=== PATIENT | male | born 1945 | race Caucasian/White ===

== ENCOUNTER → 2017-04-16 13:16 | Outpatient (CLI) | payer OTHER, SELFPAY ==
--- NOTE | 2017-04-16 13:19 | ECHOCS_ITS ---
Reason For Study: Abnormal Echo Procedure This was a 2D Doppler, Color Flow transthoracic echocardiogram. Exam performed in department. Left Ventricle Mild eccentric left ventricular hypertrophy. Moderately dilated left ventricle. The estimated ejection fraction is 35 %. Moderately severe segmental systolic dysfunction (see wall motion). Mid- anteroseptal : Akinetic. Septal [place] : Akinetic. Mid-Anterior : Akinetic. There is moderate global hypokinesis of the left ventricle. Right Ventricle Normal RV size. Normal systolic function. Atria Normal left atrium. Normal right atrium. Mitral Valve Normal mitral valve. Tricuspid Valve Normal tricuspid valve. Aortic Valve Trisinus/trileaflet aortic valve. Pulmonic Valve The pulmonic valve is not well visualized. Great Vessels Normal aortic root. Pericardium/Pleural No pericardial effusion. Medication 22 gauge I.V. with prn adaptor inserted into right arm. Diluted definity 3ml given slow IV push to enhance endocardial definition. MMode/2D Measurements & Calculations LVIDd: 6.5 cm IVSd: 1.0 cm LVOT diam: 2.0 cm LVIDs: 5.6 cm LVPWd: 0.86 cm LVOT area: 3.3 cm2 RVDd: 3.7 cm FS: 13.9 % Ao root diam: 3.6 cm LAV(MOD-bp): 52.7 ml LA A4 area: 17.6 cm2 LA dimension: 4.3 cm LAV(MOD-bp) Indexed: 23.7 ml/m2 LAV(MOD-sp2): 54.2 ml LAV(MOD-sp4): 48.6 ml RA A4 area: 13.9 cm2 Time Measurements MV dec time: 0.38 sec Doppler Measurements & Calculations MV E max jed: 43.6 cm/sec Lat Peak E' Jed: 6.6 cm/sec Med Peak E' Jed: 8.3 cm/sec MV A max jed: 91.9 cm/sec E/E' lat: 6.6 E/E' med: 5.3 MV E/A: 0.47 MV V2 max: 90.6 cm/sec MV P1/2t max jed: 44.8 cm/sec Ao V2 max: 105.3 cm/sec MV max P.3 mmHg MV P1/2t: 165.7 msec Ao max P.4 mmHg MV V2 mean: 38.4 cm/sec MV dec slope: 79.1 cm/sec2 Ao V2 mean: 74.1 cm/sec MV mean P.74 mmHg MVA(P1/2t): 1.3 cm2 Ao mean P.4 mmHg MV V2 VTI: 27.2 cm Ao V2 VTI: 23.9 cm MVA(VTI): 2.2 cm2 BETZAIDA(I,D): 2.5 cm2 BETZAIDA(V,D): 2.5 cm2 LV V1 max: 81.6 cm/sec SV(LVOT): 59.0 ml PA V2 max: 169.5 cm/sec LV V1 max P.7 mmHg LV V1 mean P.2 mmHg LV V1 mean: 48.8 cm/sec LV V1 VTI: 18.0 cm Interpretation Summary Mild eccentric left ventricular hypertrophy. Moderately dilated left ventricle. The estimated ejection fraction is 35 %. Moderately severe segmental systolic dysfunction (see wall motion). Ordering Physician: Miguel Correa Referring Physician: Miguel Correa Performed By: Job Meier RCS
== END ==
PROVIDERS: Family Provider Internal Medicine; PCP Internal Medicine; Visit Provider Internal Medicine Cardiovascular Disease
DX: I25.10 Atherosclerotic heart disease of native coronary artery without angina pectoris (principal)
CPT/HCPCS: 93306; Q9957; A4216; C8929

== ENCOUNTER → 2017-12-21 10:44 | Outpatient (CLI) | payer OTHER, SELFPAY ==
--- NOTE | 2017-12-21 10:48 | MRI_ITS ---
STUDY: MRI BRAIN WITH AND WITHOUT CONTRAST (ATTENTION INTERNAL AUDITORY CANALS - I.A.C.'s) REASON FOR EXAM: Male, 71 years old. DIZZINESS, UNSTEADY GAIT X 6 MONS. TECHNIQUE: Standardized multiplanar fat and water weighted pulse sequences were obtained. 10 ml of Gadavist contrast material was administered intravenously for the contrast portion of the examination. COMPARISON: None. FINDINGS: Normal bilateral temporal bones. Normal bilateral internal auditory canals. There is no demonstrated intracanalicular or cisternal vestibular schwannoma (acoustic neuroma). There is no enhancement of the bilateral VIIth or VIIIth cranial nerves. Normal bilateral cochlea, vestibules and semicircular canals. There is moderate atrophy with widening of the extra-axial spaces. There is ventricular enlargement. There is thinning with bowing of the corpus callosum. There is crowding of the parietal sulci near the vertex. There is moderate enlargement of the third ventricle. 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 Normal white matter tracts of the supratentorial brain. Normal bilateral basal ganglia. Normal thalami. Normal flow voids within the major intracranial circulation suggesting patency by spin echo criteria. Normal venous enhancement. There is no enhancing intra-axial or extra-axial abnormality. There is no extra-axial fluid accumulation. Normal sella turcica, pituitary gland, infundibular stalk, optic chiasm and hypothalamus. Normal tectal plate and pineal gland. Normal midbrain, emi and medulla. Normal cerebellum. Normal basal cisterns. MRI/Brain W/WO Contrast IMPRESSION: There is no demonstrated intracanalicular or cisternal vestibular schwannoma (acoustic neuroma). Suggestion of NPH in the appropriate clinical setting. Electronically Signed: Bry Back MD at 13:35 EDT Tel , Service support ,
[2017-12-21 11:26] LABS: CREATININE FINGERSTICK 0.8 mg/dL (0.70-1.30); EGFR FINGERSTICK > 60.0000 mL/min (>60)
== END ==
PROVIDERS: Family Provider Internal Medicine; PCP Internal Medicine; Referring Provider Otolaryngology; Visit Provider Otolaryngology
DX: R42 Dizziness and giddiness (principal)
CPT/HCPCS: 70553; A9585

== ENCOUNTER 2018-04-20 10:00 | Outpatient (RCR) | payer OTHER, SELFPAY ==
--- NOTE | 2018-04-12 10:48 | HP.PTEVAL_ITS ---
Patient's Visit Information OSMAN JONES is a 72 year old M referred to Physical Therapy by Sukhdeep Garcia MD with a diagnosis of Balance issures, dizzyness.. Date of Evaluation: 04/12/18 Physical Therapist: Dre Olsen, DPT, OCS, CSCS - Visit Plan Frequency: 2x /Week Duration: 4-6 Weeks Plan: Neurocom balance test then consider a couple visits to teach HEP vs 2x/week for 4 weeks. OR hold until after neurosurgeon if no issues on balance te st. - Subjective Findings: For a year I have been dizzy and unsteadiness. Had Catscan and saw ENT and were OK. Brain MRI at hospital and has some ressure in brain. Sent to neuro who sent for PT and will see a neurosurgeon. No spinning. Feels unsteady, balance issue. Sitting and lying are normal. On feet gets unsteady. Couple falls 1/7 walking on uneven surface. Those surfaces tend to be challenging. No numbness. Does not use cane or walker but has a cane. Live with and has steps which he needs rail. Sleep is good in 3-4 hour shifts. Retired form [employer]. Does not do a lot. No regualr ex. - Objective Walks slowly with short steps adn diminished confidence but safe adn I. Sit to stand without UE., Trasnfers are I. Weakness in PF but can heel raise easily, VOR walking is challenging. Oculomotor exam is unremarkable with no nystagmus adn no problem with pursuit or saccades. VOR is slow but no symptoms. - B hallpike marisol. reflexes patella and achilles are 2/3. Sensation WNl to gross light touch in LE. LE AROM and strength WNL at 4+/5. coordination reciprocal toe and heel tap at mod deficits, heel lynn shows minimal deficits. - Balance Scores Functional Gait Assessment Score: 24 % Disability: 20.0000 CATSIB Score (Max score 120 seconds): 92 - Goals Goal 1:: Neurocom balance test adn explain results Goal Time Frame: 2 Weeks Goal 2:: I approp HEP to manage balance issues Goal Time Frame: 4-6 Weeks Goal 3:: FGA to show improved steadiness adn patient feel 50% steadier. Goal Time Frame: 4-6 Weeks - Rehabilitation Potential Physical Therapy Diagnosis: Unsteadiness. Rehabilitation Potential: Fair - Anticipated Interventions Patient/Client Instruction: Educate patient on: Condition, Plan of Care For the Purpose of:: To increase tolerance to activity/condition/position, To improve balance, To improve safety Therapeutic Exercise to Include: Balance training, Gait and locomotor training For the Purpose of:: To increase tolerance to activity/condition/position, To improve balance, To improve safety with gait Thank you for the opportunity to evaluate your patient. For Medicare and Medicare HMO plans, please review the plan of care and approve it. It will need to be FAXED BACK to us at [phone] for Medicare purposes. For Medicare only, by signing this I certify the plan of care. Please let me know if there are questions or concerns regarding this plan of care. Physician Signature: Date:
--- NOTE | 2018-04-16 10:09 | HP.PTCOM_ITS ---
PT Communication Note 04/16/[address] Sukhdeep Garcia MD , [facility] i have enclosed a copy of the results for your review. In summation, he scored low on the vestibular portion of the Sensory Organization Test. he scored well on the Motor Control Test. He scored low on backward weight shifting excursion. With these results in mind, we will see him for 1-3 visits to instruct in HEP for balance related to these deficits. Then he will f/u a month later after his neurosurgeon visit to rerun these tests and check for improvement / progression. If there are questions regarding his PT, please feel free to call me. Thank you Sincerely, Dre Olsen DPT, OCS, CSCS Contact Information
--- NOTE | 2018-06-09 15:23 | HP.PT.NRP ---
HP - Discharge Summary (1) - Patient Information OSMAN JONES was seen in my office for initial evaluation on 04/12/18. The following Plan of Care was established for this patient: Initial Frequency: 2x /Week Initial Duration: 4-6 Weeks - Anticipated Interventions Patient/Client Instruction: Educate patient on: Condition, Plan of Care For the Purpose of:: To increase tolerance to activity/condition/position, To improve balance, To improve safety Therapeutic Exercise to Include: Balance training, Gait and locomotor training For the Purpose of:: To increase tolerance to activity/condition/position, To improve balance, To improve safety with gait This patient was last seen in our office 04/20/18. Pertinent comments regarding their Physical therapy will appear below: Pt seen 3 visits of POC adn was instructed in approp HEP. He was to f.u one month later for balance testing but did not schedule or attend. will discotninue due to nonattendance as it has been nearly two months. At this point I will be discontinuing this patient from physical therapy. I would be happy to see this patient again in the future if found appropriate by the physician. Thank you! Dre Olsen, DPT, OCS, CSCS
== END 2018-04-20 19:00 | disposition home or self-care (01) ==
LOC: PT 10:00
PROVIDERS: Family Provider Internal Medicine; PCP Internal Medicine; Referring Provider Psychiatry & Neurology Neurology; Visit Provider Psychiatry & Neurology Neurology
DX: R26.89 Other abnormalities of gait and mobility (principal); R42 Dizziness and giddiness
CPT/HCPCS: 97110; 97162; 97750

== ENCOUNTER → 2018-08-09 11:58 | Outpatient (CLI) | payer OTHER, SELFPAY ==
--- NOTE | 2018-08-09 12:00 | CDU_ITS ---
Reason For Study: dizziness and giddiness Rt. Velocities/BP Lt. Velocities/BP Prox CCA 132.6/82.2 cm/sec. Prox CCA 140.5/27.2 cm/sec. Mid CCA 82.2/19.5 cm/sec. Mid CCA 113.1/27.2 cm/sec. Dist CCA 73.6/14.6 cm/sec. Dist CCA 107.6/23.6 cm/sec. Prox ICA 72.3/14.6 cm/sec. Prox ICA 72.4/12.0 cm/sec. Mid ICA 68.6/20.8 cm/sec. Mid ICA 86.2/24.1 cm/sec. Dist ICA 59.6/20.3 cm/sec. Dist ICA 104.5/36.9 cm/sec. Rt. ICA/CCA = 72.3/82.2=0.9. Lt. ICA/CCA = 104.5/113.1=0.9. Prox ECA 78.5/10.9 cm/sec. Prox ECA 113.1/7.1 cm/sec. Rt. Vert. 61.6/15.0 cm/sec. Lt. Vert. 51.9/16.7 cm/sec. Right Extracranial There is intimal thickening but no significant atherosclerotic plaque noted in the right common carotid artery. There is heterogeneous, smooth atherosclerotic plaque noted in the right internal carotid artery. There is no significant atherosclerotic plaque noted in the right external carotid artery. Antegrade flow is noted in the right vertebral artery. There is heterogeneous, irregular atherosclerotic plaque noted in the right bulb. Left Extracranial There is intimal thickening but no significant atherosclerotic plaque noted in the left common carotid artery. There is heterogeneous, smooth atherosclerotic plaque noted in the left internal carotid artery. There is no significant atherosclerotic plaque noted in the left external carotid artery. Antegrade flow is noted in the left vertebral artery. There is heterogeneous, irregular atherosclerotic plaque noted in the left bulb. Procedure Carotid Duplex [id number]. Exam performed in department. Interpretation Summary Mild (<50%) stenosis right extracranial internal carotid. Mild (<50%) stenosis left extracranial internal carotid. Flow within the vertebral arteries is antegrade bilaterally. Heterogeneous, irregular atherosclerotic plaque is noted in the carotid bulbs bilaterally, which does not appear to be hemodynamically significant. Ordering Physician: Zafar Jurado Referring Physician: Jordy Saucedo Performed By: Ammy Sosa RDCS, RVT
== END ==
PROVIDERS: Family Provider Internal Medicine; PCP Internal Medicine; Referring Provider Psychiatry & Neurology Neurology; Visit Provider Psychiatry & Neurology Neurology
DX: R42 Dizziness and giddiness (principal)
CPT/HCPCS: 93880

== ENCOUNTER 2018-10-19 10:28 | Emergency (ER) | payer OTHER, SELFPAY ==
[2018-10-19 10:29] VITALS: BP 172/95; PULSE 69; RESP 16; TEMP 36.3; O2SAT 98; BMI 31.1
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
--- NOTE | 2018-10-19 11:50 | ED.DCSUM_ITS ---
- ER Visit Summary Date of Service: 10/19/18 Chief Complaint: Shoulder injury History of Present Illness: The patient is a 72 M who states that he has balance issues and today sustained a fall in which he struck his right shoulder. He states he feels a bone sticking up. He has limited range of motion. He denies any other injuries. He denies any symptoms below the shoulder Physical Examination: Afebrile vital signs are stable Patient is tenderness palpation over the right AC joint. The trapezius muscle appears in spasm. No tenderness over the scapula on the posterior aspect. Humerus is nontender. Neurovascular intact distal Test Results: Shoulder films did not demonstrate an acute fracture. The clavicle does appear higher than the acromion suggestive of a AC separation. Emergency Department Course and Treatment: She will be placed in a sling recommend ice and anti-inflammatories. I have encouraged him to follow-up with orthopedics. Impression: 1. Right AC separation This note was generated with [employer] dictation software. It may contain incorrect words, spelling, and punctuation that were not noted in review of the chart prior to signing ED Disposition - Plan for ED Patient: Disposition: Home or Assisted Living Instructions: Ac Joint Sprain Referrals: Delroy Lopez DO [STAFF PHYSICIAN] - (call to arrange follow up)
[2018-10-19 12:12] VITALS: BP 141/89; PULSE 64; RESP 16; O2SAT 97
== END 2018-10-19 12:13 | disposition home or self-care (01) ==
PROVIDERS: Emergency Provider Emergency Medicine; Family Provider Internal Medicine; PCP Internal Medicine
DX: S43.101A Unspecified dislocation of right acromioclavicular joint, initial encounter (principal); W19.XXXA Unspecified fall, initial encounter; Y93.9 Activity, unspecified; Y92.9 Unspecified place or not applicable; I25.2 Old myocardial infarction; I10 Essential (primary) hypertension; Z87.891 Personal history of nicotine dependence
CPT/HCPCS: 73030; 99283

== ENCOUNTER → 2018-11-15 13:35 | Outpatient (CLI) | payer OTHER, SELFPAY ==
[2018-11-15 07:56] VITALS: BMI 31.1
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
== END ==
PROVIDERS: Family Provider Internal Medicine; PCP Internal Medicine; Referring Provider Orthopaedic Surgery; Visit Provider Orthopaedic Surgery
DX: M19.011 Primary osteoarthritis, right shoulder (principal); S43.101A Unspecified dislocation of right acromioclavicular joint, initial encounter; X58.XXXA Exposure to other specified factors, initial encounter; Y93.9 Activity, unspecified; Y92.9 Unspecified place or not applicable; Y99.9 Unspecified external cause status
CPT/HCPCS: 73030

== ENCOUNTER → 2019-03-18 07:34 | Outpatient (CLI) | payer OTHER, SELFPAY ==
[2019-02-24 16:09] VITALS: BMI 31.7
--- NOTE | 2019-03-18 07:35 | ECHOCS_ITS ---
Reason For Study: S/P CABG Procedure This was a 2D Doppler, Color Flow transthoracic echocardiogram. The study was technically difficult. Contrast injection was performed. Exam performed in department. Left Ventricle Normal LV size. Moderate segmental systolic dysfunction (see wall motion). The estimated ejection fraction is 35 %. No evidence for diastolic dysfunction. Anterio-Basal: Hypokinetic. Posterior- Basal: Hypokinetic. Infero-Basal: Hypokinetic. Basal inferoseptal: Hypokinetic. Basal anteroseptal: Hypokinetic. Mid-Anterior : Hypokinetic. Mid-Posterior: Hypokinetic. Mid-Inferior: Hypokinetic. Mid- inferoseptal : Akinetic. Mid-anteroseptal : Akinetic. Anterior [place] : Hypokinetic. Inferior [place] : Hypokinetic. Lateral [place] : Hypokinetic. Septal [place] : Akinetic. Right Ventricle Normal RV size. Normal systolic function. Atria Normal left atrium. Normal right atrium. No doppler evidence for ASD. Mitral Valve There is mild mitral annular calcification. Extension of the mitral annular calcification onto the base of the posterior mitral valve leaflet. Trivial mitral valve insufficiency. Tricuspid Valve Normal tricuspid valve. Trivial tricuspid valve insufficiency. Unable to estimate RV systolic pressure/pulmonary artery pressure due to technically difficult study. Aortic Valve Trisinus/trileaflet aortic valve. Normal aortic valve. Pulmonic Valve The pulmonic valve is not well visualized. Great Vessels Mildly dilated aortic root. Pericardium/Pleural No pericardial effusion. Medication 22 gauge I.V. with prn adaptor inserted into left arm. Diluted definity 4.0ml given slow IV push to enhance endocardial definition. MMode/2D Measurements & Calculations LVIDd: 5.4 cm IVSd: 0.72 cm Ao root diam: 4.0 cm LVIDs: 4.5 cm LVPWd: 0.70 cm FS: 17.1 % LAV(MOD-bp): 52.4 ml LVAd ap4: 49.1 cm2 SV(MOD-sp4): 60.3 ml LAV(MOD-bp) Indexed: 23.2 ml/m2 EDV(MOD-sp4): 208.1 ml LAV(MOD-sp2): 43.9 ml EDV(sp4-el): 216.4 ml LAV(MOD-sp4): 52.0 ml LVAs ap4: 39.8 cm2 ESV(MOD-sp4): 147.8 ml ESV(sp4-el): 151.8 ml EF(MOD-sp4): 29.0 % EF(sp4-el): 29.8 % SV(sp4-el): 64.6 ml LA A4 area: 19.9 cm2 LA dimension(2D): 4.1 cm RA A4 area: 16.6 cm2 Time Measurements MV dec time: 0.29 sec Doppler Measurements & Calculations MV E max jed: 50.3 cm/sec Lat Peak E' Jed: 7.7 cm/sec Med Peak E' Jed: 4.6 cm/sec MV A max jed: 85.8 cm/sec E/E' lat: 6.5 E/E' med: 10.8 MV E/A: 0.59 Ao V2 max: 99.4 cm/sec LV V1 max: 83.6 cm/sec PA V2 max: 173.2 cm/sec Ao max P.0 mmHg LV V1 max P.8 mmHg Interpretation Summary The study was technically difficult. Contrast injection was performed. Moderate segmental systolic dysfunction (see wall motion). The estimated ejection fraction is 35 %. There is mild mitral annular calcification. Extension of the mitral annular calcification onto the base of the posterior mitral valve leaflet. Trivial mitral valve insufficiency. Trivial tricuspid valve insufficiency. Mildly dilated aortic root. Unable to estimate RV systolic pressure/pulmonary artery pressure due to technically difficult study. No evidence for diastolic dysfunction. 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 Ordering Physician: Chacorta Escobar Referring Physician: Jordy Saucedo M.D. Performed By: Ita Arteaga, CHAVEZ, RVT
== END ==
PROVIDERS: Family Provider Internal Medicine; PCP Internal Medicine; Referring Provider Internal Medicine Cardiovascular Disease; Visit Provider Internal Medicine Cardiovascular Disease
DX: I25.10 Atherosclerotic heart disease of native coronary artery without angina pectoris (principal); I51.3 Intracardiac thrombosis, not elsewhere classified; Z95.1 Presence of aortocoronary bypass graft
CPT/HCPCS: 93306; Q9957; A4216; C8929

== ENCOUNTER → 2019-03-28 15:50 | Outpatient (CLI) | payer OTHER, SELFPAY ==
[2019-03-28 14:09] VITALS: BMI 32.0
[2019-03-28 16:01] LABS: Bacteria 0 SEEN /hpf (None Seen); Mucous, Urine 0 SEEN /hpf (<or=2+); White Blood Cells 0 SEEN /hpf (0-5)
[2019-03-28 17:02] LABS: Color, Urine Yellow (Yellow); Glucose, Dipstick Normal (Normal); Ketone-Dipstick Negative (Negative); Leukocyte Esterase-Dipstick Negative /ul (Negative); Nitrite-Dipstick Negative (Negative); Occult Blood-Urine 50 /ul (Negative); Protein-Dipstick 15 mg/dl (Negative); Urine Bilirubin Dipstick Negative (Negative); Urine Clarity Sl. Cloudy (Clear); Urine Urobilinogen Normal (Normal)
[2019-03-28 17:09] LABS: Hematocrit 52.8 % (40-54); Mean Corp Hgb Conc 32.2 g/dL (32-36); Mean Corpuscular Hgb 29.2 pg (27.0-32.0); Mean Corpuscular Volume 90.6 fL (80-94); Mean Platelet Vol. 12.1 fl (6.2-12.0); Platelet Count 189 K/mm3 (150-450); RBC Distribution Width CV 13.1 % (11.6-14.6); RBC Distribution Width SD 43.5 fl (35.1-43.9); Red Blood Count 5.83 M/mm3 (4.6-6.2); White Blood Count 9.9 K/mm3 (4.4-11.0)
[2019-03-28 17:13] LABS: International Normalized Ratio 2.5; Prothrombin Time (Protime)PT. 26.8 SECONDS (11.7-14.9)
[2019-03-28 17:17] LABS: Red Blood Cells-Urine 5-10 SEEN /hpf (0-5); Squamous Epithelial Cells - UA 0-5 SEEN /hpf (0-5)
[2019-03-28 17:35] LABS: Anion Gap 5 (5-15); BUN 11 mg/dL (7-18); BUN/Creat Ratio 10.8 RATIO (10-20); Calcium,Total 9.1 mg/dL (8.5-10.1); Chloride 108 mmol/L (98-107); Creatinine, Serum 1.02 mg/dL (0.70-1.30); EST Glomerular Filtration Rate 76 mL/min (>60); Est Glom Filt Rate - Afr Amer 92 mL/min (>60); Glucose 84 mg/dL (74-106); Potassium 3.7 mmol/L (3.5-5.1); Sodium Level 140 mmol/L (136-145)
== END ==
PROVIDERS: PCP Internal Medicine; Referring Provider Internal Medicine Cardiovascular Disease; Visit Provider Internal Medicine Cardiovascular Disease
DX: I25.5 Ischemic cardiomyopathy (principal); Q24.5 Malformation of coronary vessels; I25.10 Atherosclerotic heart disease of native coronary artery without angina pectoris; I51.3 Intracardiac thrombosis, not elsewhere classified
CPT/HCPCS: 36415; 80048; 81001; 85027; 85610

== ENCOUNTER → 2019-04-05 10:44 | Outpatient (CLI) | payer OTHER, SELFPAY ==
[2019-03-28 14:09] VITALS: BMI 32.0
[2019-04-05 11:42] LABS: Anion Gap 2 (5-15); BUN 12 mg/dL (7-18); BUN/Creat Ratio 11.2 RATIO (10-20); Chloride 107 mmol/L (98-107); Creatinine, Serum 1.07 mg/dL (0.70-1.30); EST Glomerular Filtration Rate 72 mL/min (>60); Est Glom Filt Rate - Afr Amer 87 mL/min (>60); Glucose 106 mg/dL (74-106); Sodium Level 139 mmol/L (136-145)
== END ==
LOC: LAB 10:47
PROVIDERS: PCP Internal Medicine; Referring Provider Internal Medicine Cardiovascular Disease; Visit Provider Internal Medicine Cardiovascular Disease
DX: I10 Essential (primary) hypertension (principal); I25.5 Ischemic cardiomyopathy; I25.10 Atherosclerotic heart disease of native coronary artery without angina pectoris; E78.00 Pure hypercholesterolemia, unspecified; Z95.1 Presence of aortocoronary bypass graft
CPT/HCPCS: 36415; 80048

== ENCOUNTER 2019-04-14 10:42 | Day surgery (SDC) | payer OTHER, SELFPAY ==
[2019-03-28 14:09] VITALS: BMI 32.0
[2019-04-13 12:58] VITALS: BMI 32.0
[2019-04-14] VITALS (9 sets, daily range): BP systolic 128–145; BP diastolic 65–73; PULSE 60–77; RESP 16; TEMP 36.2–36.6; O2SAT 96–99
[2019-04-14 11:05] LABS: Prothrombin Time Fingerstick 28.5 SEC (11.9-14.4)
--- NOTE | 2019-04-14 11:25 | PCM.HP.BLA ---
History and Physical Date of Admission: 04/14/19 This is a 73-year-old white male who presents today an ICD placement. He does have a hx of CAD, previous AL, previous PCI, previous CABG (WALDEN to the LAD and SVG to the OM), ischemic mediated cardiomyopathy, left ventricular apical thrombus, superimposed upon hyperlipidemia, hypertension, diabetes mellitus, and possible normal pressure hydrocephalus. At the present time he states he is not having ongoing chest discomfort. There has been no episodes of worsening shortness of breath or dyspnea or orthopnea or PND. He has noted the development of lower extremity/ankle edema. This is more so on the right than the left. There is been no near syncope or syncope. He states he has a chronic balance issue. He has been evaluated by neurology for this. Thus the MRI which was noted in the previous [facility] cardiology visit from 03-26-18 with the statement of possible normal pressure hydrocephalus. The patient states that he is not aware of any continued follow-up with neurology at this time. It appears that he is undergone multiple evaluations at [facility] in [place], [place]. In 1995 he underwent diagnostic cardiac catheterization that apparently led to PTCA/stent to the LAD system. The LAD was reported as occluded. It appears he had diagnostic cardiac catheterization performed on 09-16-2013. At that time according to report the left ventricle had an LVEF of 35 to 40% with hypokinesis of the anterolateral and apical harding, the LAD mid vessel had concerns of an area of myocardial bridging at the time. The LCx was reported as normal, the RCA was reported as normal, and the mitral valve had no MR. It appears he underwent repeat diagnostic cardiac catheterization on 10-20-16. At that time the left ventricle was reported as having an LVEF of 35 to 40%, the LAD had a proximal 70% stenosis and 80% stenosis and the LCx had a 50% stenosis. The RCA was reported as normal. It appears he subsequently, in November 2016, underwent CABG with a WALDEN to the LAD and an SVG to the OM at [facility] in [place], [place]. Since that time he has had noninvasive evaluation. He had a transthoracic echocardiogram was on 04-16-17. At that time the left ventricle was thought to be moderately dilated with left ventricular systolic dysfunction with an estimated LVEF of 35% with moderate concentric LVH. It appears he has had carotid artery evaluation as well in August 2018 through the [facility] system. At that time he had what was reported as mild disease bilaterally. His last stress test available for review appears to been in August 2013 which was a myocardial perfusion study considered abnormal with an area of fixed defect in the LAD and RCA territories with the left ventricle being dilated with an LVEF of 34%. His most recent transthoracic echocardiogram is as noted below. Overall it appears he remains with a diminished LV systolic function/LVEF and findings not compatible with a left ventricular apical thrombus. Intake VS see chart Allergies No Known Allergies Allergy (Verified 03/28/19 14:09) Medications aspirin 81 mg tablet,delayed release 81 mg PO DAILY 10/25/18 [History Confirmed 03/28/19] atorvastatin 80 mg tablet 80 mg PO QHS #30 tab 02/22/19 [History Confirmed 03/28/19] metoprolol tartrate 25 mg tablet 12.5 mg PO BID #60 tab 02/22/19 [History Confirmed 03/28/19] warfarin 5 mg tablet 5 mg PO DAILY #30 tab 02/22/19 [History Confirmed 03/28/19] amlodipine 2.5 mg tablet 2.5 mg PO DAILY #30 tab 02/24/19 [Rx Confirmed 03/28/19] nitroglycerin 0.4 mg sublingual tablet 0.4 mg SUBLINGUAL Q5-15M PRN #25 tab 02/24/19 [Rx Confirmed 03/28/19] losartan 100 mg tablet 50 mg PO BID tab 03/28/19 [History Confirmed 03/28/19] spironolactone 25 mg tablet 25 mg PO DAILY #30 tab 03/28/19 [Rx Confirmed 03/28/19] [facility] Medical History Ischemic cardiomyopathy (Chronic) Bilateral carotid artery stenosis (Chronic) History of myocardial infarction (Acute) 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) Pure hypercholesterolemia (Chronic) Atherosclerotic heart disease of [place] coronary artery without angina pectoris (Chronic) Essential hypertension (Chronic) Surgical History History of coronary artery bypass surgery (Chronic ~10/31/16) History of appendectomy (Resolved) History of shoulder surgery (Resolved) History of tonsillectomy (Resolved) Family History Father AAA (abdominal aortic aneurysm, ruptured), Onset Age: 89 Mother Myocardial infarction Sudden cardiac , Onset Age: 80 Brother Hypertension Social History (Updated 03/28/19 @ 15:55 by Chacorta Escobar MD) Smoking Status: Former smoker alcohol intake: never substance use type: does not use caffeine: Yes Type: coffee Number of servings: 1 ROS Const Const: Negative for fatigue, weakness, frequent falls, excessive sweating, weight gain or weight loss Eyes Eyes: Negative for transient loss of vision, blurry vision or change in vision ENT ENT: Positive for dizziness (continues) and balance problems Cardio Chest Pain: No Palpitations: No Edema: Bilateral (ankles,pedals) Muscle aches with walking: None Resp Respiratory: Negative for SOB with activity or SOB at rest GI GI: Negative vomiting or vomiting blood/hematemesis : Negative for hematuria Musc Musc: Positive for balance problems; negative for muscle aches/ myalgia, muscle weakness or joint pain Skin Skin: Negative non-healing lesions or rash Neuro Neuro: Positive for dizziness (continues); negative for lightheadedness, orthostatic symptoms, frequent falls, weakness or blurry vision Patrick Hematologic/Lymphatic: Negative for easy bleeding Endo Endo: Negative for fatigue or excessive sweating Psych Psych: Negative for anxiety or depression Allergy Allergy/Immunology: Negative for hives, Negative for rash Cardiology Exam Const Appearance: cooperative, healthy appearing, comfortable, no acute distress, well developed and well groomed Nutritional Appearance: average body habitus Orientation: alert, awake and oriented x3 Head Head: normal to inspection, normocephalic and atraumatic Ears: hearing grossly normal bilaterally Nose: external nose normal Face and Sinus: face symmetric Mouth: oral mucosae normal Teeth and gingiva: fair dentition Eyes Eyelids: eyelids normal Conjunctivae: conjunctivae normal Pupils: PERRL EOM: EOM intact bilaterally Neck Neck: normal visual inspection and full ROM Carotids: normal carotid upstroke Chest Chest inspection: normal inspection of the chest, symmetric chest movement and normal respiratory effort Auscultation: Bilateral: Clear to Auscultation Cardio Palpation: normal PMI Rate: regular rate Rhythm: regular rhythm Heart sounds: S1 normal, S2 normal and positive S4 GI GI: normal to inspection, soft and bowel sounds present Neuro General: alert, awake, oriented x3 and moves all extremities Skin Skin: no rashes or lesions noted Extremities Pulses: Normal: Right Radial Pulse, Left Radial Pulse Lower Extremity Edema: +1: Left, +2: Right Psych Psychological: normal affect Assessment & Plan 1. Atherosclerosis of [place] coronary artery of [place] heart without angina pectoris I25.10 Plan At the present time he will continue risk factor evaluation and care as deemed appropriate. It was not felt he required repeat exercise tolerance test/imaging study or diagnostic cardiac catheterization at this time. 2. History of coronary artery bypass graft Z95.1 CABG x2- WALDEN to LAD, SVG to OM 10/31/2016 @ [place] Plan Again he will continue medical management and follow-up. 3. Cardiomyopathy, ischemic I25.5 Plan He will have an ICD placed today. The patient does have an underlying ischemic mediated cardiomyopathy. His most recent transthoracic echocardiogram demonstrates that his overall LV systolic function and LVEF remains low at approximately 35% which appears to be similar to his previous studies. A SDM interaction occurred at this visit using an SDM tool prior to initial implant of ICD. Pt will follow up accordingly in the office. 4. Pure hypercholesterolemia E78.00 Plan He will continue risk factor evaluation and care as deemed appropriate. 5. Essential hypertension I10 Plan These were recently adjusted. He will follow up accordingly in the office.
--- NOTE | 2019-04-14 12:52 | OP.PCM_ITS ---
Report of Operation Date of Procedure: 04/14/19 Description of Surgical Findings:: Preoperative diagnosis implantation of primary prevention VVI ICD for ischemic CM; EF 35% NYHA Class II symptoms Postoperative diagnosis same as above After informed consent and IV antibiotics the patient was brought to the [facility] catheterization laboratory. The left side of the chest was prepped and draped in the usual sterile manner. The patient was sedated with intermittent boluses of IV Versed fentanyl and propofol as well as subcutaneous 1% lidocaine. An incision was made inferior to the clavicle to accommodate the size of the hardware device. The pocket was created using blunt and Bovie dissection. Hemostasis was obtained. Using the Seldinger technique the axillary vein was cannulated once and a guidewire was advanced under fluoroscopic guidance. Over the guidewire a sheath was advanced. Through this sheath, the electrode was positioned under fluoroscopic guidance into the right ventricle and was actively fixated. Once actively fixated, the lead was tested to check for proper sensing, capture threshold, impedance and to exclude diaphragmatic stimulation. Once the lead was implanted and all electrical parameters were confirmed to be functioning normally with appropriate values, the leads was then sutured to the pectoralis muscle with 2-0 silk on the Silastic collar ?2. The sponge and needle count were correct. Hemostasis was obtained. Antibiotic solution was used to flush the pocket. The new device was brought to the field. The lead was placed in the appropriate position of the header of the device and were secured by the setscrews and confirmed by the tug test. The device and the kalani ds were then placed in the pocket. Pocket was closed with a deep layer of running 2-0 Vicryl, superficial layer of running 4-0 Vicryl and skin with Steri- Strips that were covered with a rolled 4 x 4's and Tegaderm. The patient left the lab with the device programmed to chronic parameters. There were no complications. Tghe device is a VVI ICD [place] [employer] device Lead and device serial and model numbers are available in the chart documents provided by the device company [email or web address] sales representative procedure summary.
--- NOTE | 2019-04-14 17:10 | RAD_ITS ---
STUDY: X-RAY CHEST REASON FOR EXAM: Male, 73 years old. Post pacemaker TECHNIQUE: Single AP portable view of the chest. COMPARISON: None. FINDINGS: The lungs are clear and expanded. There is no demonstrated pleural abnormality. Normal size heart. There has been median sternotomy. Single pacer lead terminates in the right ventricle. Normal mediastinum and nilsa. Normal visualized pulmonary arteries. Normal visualized aortic arch and descending thoracic aorta. Normal visualized thoracic spine. Normal visualized ribs, clavicles, and shoulders. There is no demonstrated abnormality of the visualized soft tissue structures of the upper abdomen. RAD/Chest 1 View (Portable) IMPRESSION: No definite acute or significant abnormality seen. Electronically Signed: Fabian Phillips MD at 17:51 EST , Service support ,
[2019-04-14] MEDS: Acetaminophen 325 MG Tablet PO (17:25)
[2019-04-14] MEDS: Losartan Potassium 50 MG Tablet PO (21:29)
[2019-04-14] MEDS: Metoprolol Tartrate 25 MG Tablet 12.5 MG PO (21:29)
[2019-04-14] MEDS: Atorvastatin Calcium 80 MG Tablet PO (21:30)
[2019-04-15 02:30] VITALS: BP 131/74; PULSE 69; RESP 16; TEMP 36.6; O2SAT 96
[2019-04-15 02:59] VITALS: PULSE 67
[2019-04-15] MEDS: Acetaminophen 325 MG Tablet PO (03:08)
[2019-04-15 05:54] LABS: Hematocrit 46.2 % (40-54); Hemoglobin 15.5 g/dL (13.0-16.5)
--- NOTE | 2019-04-15 05:55 | RAD_ITS ---
STUDY: X-RAY CHEST REASON FOR EXAM: Male, 73 years old. Chest pain, recent pacemaker insertion TECHNIQUE: PA and lateral views of the chest. COMPARISON: Yesterday FINDINGS: Stable appearance of a left subclavian pacemaker The lungs are clear and expanded. There is no demonstrated pleural abnormality. Sternal cerclage wires and vascular clips are present from a prior sternotomy and coronary artery bypass graft procedure (CABG). Normal mediastinum and nilsa. Normal visualized pulmonary arteries. Normal visualized aortic arch and descending thoracic aorta. Normal visualized thoracic spine. Normal visualized ribs, clavicles, and shoulders. There is no demonstrated abnormality of the visualized soft tissue structures of the upper abdomen. RAD/Chest PA and Lateral IMPRESSION: No acute pulmonary process or significant interval change Electronically Signed: Dickson Liang MD at 8:31 EST , Service support ,
[2019-04-15 06:12] LABS: Anion Gap 2 (5-15); BUN 15 mg/dL (7-18); Calcium,Total 8.5 mg/dL (8.5-10.1); Chloride 109 mmol/L (98-107); Creatinine, Serum 0.94 mg/dL (0.70-1.30); EST Glomerular Filtration Rate 84 mL/min (>60); Est Glom Filt Rate - Afr Amer 102 mL/min (>60); Estimated Creatinine Clearance 76.82 ml/min; Glucose 106 mg/dL (74-106); Potassium 3.9 mmol/L (3.5-5.1); Sodium Level 138 mmol/L (136-145)
--- NOTE | 2019-04-15 07:28 | DCINST_ITS ---
Discharge Diet: No Restrictions Discharge Activity: May Not Drive Call your doctor if your incision/area has: Continuous Slow Oozing, Sudden Increased Bleeding, Increased Pain/ Swelling, Increased Redness, Foul Smelling Discharge, Swelling at the incision site Call your doctor if you observe: Fever of 101 or Higher, Shortness of breath, Dizziness, Fainting spells, Swelling in the ankles, Chest pain, Prolonged hiccoughing, Increased palpitations (irregular heartbeat) Suture Line Care: Avoid Pulling/Pushing, Avoid Pinching/Bending Cleanse incision/area with: Do not get Incision Wet, Keep Dressing Clean & Dry Additional Dressing/Incision Instructions:: When dressing is removed, wash and dry incision. Keep covered with a light bandage if it is rubbing against your clothing. Do not cover the incision with an airtight bandage. Change the bandage daily. Do not remove steri strips. The strips will fall off on their own. Additional Instructions: Signs and Symptoms to Report to Your Doctor at Once - call your doctor's office or Doctor's Registry ([phone]) Call 911 or go to the nearest Emergency Department if you feel you need urgent care. *Infection (fever, increased redness or swelling at the incision site, drainage from the incision increased pain at the pacemaker site) *Shortness of breath *Dizziness *Fainting spells *Swelling in the ankles *Chest pain *Prolonged hiccoughing *Increased palpitaitons (irregular heartbeat) Medications: Take your pain medication as directed. Refer to your discharge instruction sheet for a list of medications you are to take. Allergies/Adverse Reactions: Allergies No Known Allergies Allergy (Verified 03/28/19 14:09) Medications to take at Discharge aspirin 81 mg tablet,delayed release 81 mg PO DAILY 10/25/18 atorvastatin 80 mg tablet 80 mg PO QHS #30 tab 02/22/19 metoprolol tartrate 25 mg tablet 12.5 mg PO BID #60 tab 02/22/19 warfarin 5 mg tablet 5 mg PO DAILY #30 tab 02/22/19 amlodipine 2.5 mg tablet 2.5 mg PO DAILY #30 tab 02/24/19 nitroglycerin 0.4 mg sublingual tablet 0.4 mg SUBLINGUAL Q5-15M PRN #25 tab 02/24/19 losartan 100 mg tablet 50 mg PO BID tab 03/28/19 spironolactone 25 mg tablet 25 mg PO DAILY #30 tab 03/28/19 Primary Care Physician: Jordy Saucedo MD [Primary Care Provider] - Test Results: Test results from this visit will be discussed in further detail at your follow- up appointment, if applicable. When: PACER CLINIC PER DATE Proposed Discharge Date: 04/15/19
[2019-04-15 07:59] VITALS: PULSE 69
--- NOTE | 2019-04-15 08:32 | DS.PCM_ITS ---
Discharge Date and Diagnosis Date of Admission: 04/14/19 Date of Discharge: 04/15/19 - Primary Discharge Diagnosis Status post single lead ICD - Secondary Discharge Diagnosis Chronic Problems (Last Reviewed 03/28/19 @ 14:10 by Aby Carey) Ischemic cardiomyopathy (Chronic) Bilateral carotid artery stenosis (Chronic) Pure hypercholesterolemia (Chronic) History of coronary artery bypass surgery (Chronic ~10/31/16) CABG x2- WALDEN to LAD, SVG to OM 10/31/2016 @ [place] Atherosclerotic heart disease of [place] coronary artery without angina pectoris (Chronic) Essential hypertension (Chronic) Hospital Course and Treatment Imaging Results: 04/15/19 05:55 Chest PA and Lateral [RAD] AM (NON MEDS) Procedures: - - ICD placement Summary of Care Provided: The patient is a 73 year old white male with a past cardiovascular history which is included underlying CAD, ischemic mediated cardiomyopathy with diminished LV systolic function/LVEF, PCI, CABG, left ventricular thrombus, superimposed upon a history of hyperlipidemia and hypertension who presented for placement of a single-lead ICD. His procedure was performed on 04-14-2019 under the direction of Dr. Mcpherson of [facility] electrophysiology. The patient recuperated in the hospital overnight. He appeared to be symptomatically and hemodynamically stable. He underwent post procedure follow-up with laboratory studies, chest x-ray, and ICD interrogation. On this day it was felt the patient was stable for release home for continued outpatient cardiovascular follow-up. [] Subjective: The patient is awake and alert and in no acute distress. - Physical Exam Vitals/I&O's: Vital Signs Temp Pulse Resp BP Pulse Ox 97.9 F 69 16 131/74 H 96 04/15/19 02:30 04/15/19 07:59 04/15/19 02:30 04/15/19 02:30 04/15/19 02:30 Oxygen Delivery Method Room Air Weight: 236 lb Body Mass Index (BMI) 32.0 Intake and Output for Last 24 Hours 04/13/19 04/14/19 04/15/19 23:59 23:59 23:59 Intake Total 500 / 500 240 / 240 Output Total 400 / 400 400 / 400 Balance 100 / 100 -160 / -160 General: Alert, Oriented x3, Cooperative, No apparent distress HEENT: Atraumatic, PERRLA, EOMI, Normocephalic Oral: Moist Mucosa Neck: Supple, No JVD Lungs: Clear to auscultation Cardiovascular: Regular Rhythm, Normal S1, Normal S2 Abdomen: Bowel Sounds Present, Soft, Non Tender Extremities: No edema Psych/Mental Status: Normal Affect Comment: Left pectoral region: Surgical bandage in place: Clean and dry Laboratory Results 04/14/19 10:57: POC PT 28.5 H, INR 2.40 04/15/19 05:30: Hgb 15.5, Hct 46.2 04/15/19 05:30: Sodium 138, Potassium 3.9, Chloride 109 H, Carbon Dioxide 27.0, Anion Gap 2 L, BUN 15, Creatinine 0.94, Estim Creat Clear Calc 76.82, Est GFR (MDRD) Af Amer 102, Est GFR (MDRD) Non-Af 84, BUN/Creatinine Ratio 16.0, Glucose 106, Calcium 8.5 Current Medications Acetaminophen (Tylenol) 325 - 650 mg PO Q6H PRN PRN PRN Reason: Pain Score 1-3/10, T> 101F Last Admin: 04/15/19 03:08 Dose: 650 mg Documented by: Hydrocodone Bitart/Acetaminophen ([place]run[place] 5mg-325mg) 1 - 2 tablet PO Q6H PRN PRN PRN Reason: Pain Score 4-10/10 Amlodipine Besylate (Norvasc) 2.5 mg PO DAILY REPLACED BY [facility] Aspirin (Ecotrin) 81 mg PO DAILY@0800 REPLACED BY [facility] Atorvastatin Calcium (Lipitor) 80 mg PO QHS REPLACED BY [facility] Last Admin: 04/14/19 21:30 Dose: 80 mg Documented by: Losartan Potassium (Cozaar) 50 mg PO BID REPLACED BY [facility] Last Admin: 04/14/19 21:29 Dose: 50 mg Documented by: Metoprolol Tartrate (Lopressor (Beta Elise)) 12.5 mg PO BID REPLACED BY [facility] Last Admin: 04/14/19 21:29 Dose: 12.5 mg Documented by: Nitroglycerin (Nitrostat) 0.4 mg SUBLINGUAL Q5M PRN PRN Reason: CARDIAC/CHEST PAIN Ondansetron HCl (Zofran) 4 mg IV Q8H PRN PRN PRN Reason: NAUSEA Spironolactone (Aldactone) 25 mg PO DAILY REPLACED BY [facility] Warfarin Sodium (Coumadin (Pbkc)) 5 mg PO DAILY@1700 REPLACED BY [facility] Last Admin: 04/14/19 19:02 Dose: 5 mg Documented by: Zolpidem Tartrate (Ambien (Generic)) 5 mg PO QHS PRN PRN Reason: SLEEP Discharge Diet: No Restrictions Discharge Activity: May Not Drive Call your doctor if your incision/area has: Continuous Slow Oozing, Sudden Increased Bleeding, Increased Pain/ Swelling, Increased Redness, Foul Smelling Discharge, Swelling at the incision site Call your doctor if you observe: Fever of 101 or Higher, Shortness of breath, Dizziness, Fainting spells, Swelling in the ankles, Chest pain, Prolonged hiccoughing, Increased palpitations (irregular heartbeat) Suture Line Care: Avoid Pulling/Pushing, Avoid Pinching/Bending Cleanse incision/area with: Do not get Incision Wet, Keep Dressing Clean & Dry Additional Dressing/Incision Instructions:: When dressing is removed, wash and dry incision. Keep covered with a light bandage if it is rubbing against your clothing. Do not cover the incision with an airtight bandage. Change the bandage daily. Do not remove steri strips. The strips will fall off on their own. Home Medications: Medications to take at Discharge aspirin 81 mg tablet,delayed release 81 mg PO DAILY 10/25/18 atorvastatin 80 mg tablet 80 mg PO QHS #30 tab 02/22/19 metoprolol tartrate 25 mg tablet 12.5 mg PO BID #60 tab 02/22/19 warfarin 5 mg tablet 5 mg PO DAILY #30 tab 02/22/19 amlodipine 2.5 mg tablet 2.5 mg PO DAILY #30 tab 02/24/19 nitroglycerin 0.4 mg sublingual tablet 0.4 mg SUBLINGUAL Q5-15M PRN #25 tab 02/24/19 losartan 100 mg tablet 50 mg PO BID tab 03/28/19 spironolactone 25 mg tablet 25 mg PO DAILY #30 tab 03/28/19 Primary Care Physician: Jordy Saucedo MD [Primary Care Provider] - When: PACER CLINIC PER DATE Additional Instructions: Signs and Symptoms to Report to Your Doctor at Once - call your doctor's office or Doctor's Registry ([phone]) Call 911 or go to the nearest Emergency Department if you feel you need urgent care. *Infection (fever, increased redness or swelling at the incision site, drainage from the incision increased pain at the pacemaker site) *Shortness of breath *Dizziness *Fainting spells *Swelling in the ankles *Chest pain *Prolonged hiccoughing *Increased palpitaitons (irregular heartbeat) Medications: Take your pain medication as directed. Refer to your discharge instruction sheet for a list of medications you are to take. Disposition: Home Minutes spent on discharge:: 45 Patient Condition:: Stable Medical Necessity - Tobacco Use Smoking Status: Former smoker Meaningful Use Info Meaningful Use Diagnoses (Choose all that apply): None applicable
[2019-04-15 08:48] VITALS: PULSE 74
[2019-04-15] MEDS: Metoprolol Tartrate 25 MG Tablet 12.5 MG PO (08:48)
[2019-04-15] MEDS: amLODIPine 2.5 MG Tablet PO (08:48)
[2019-04-15] MEDS: Spironolactone 25 MG Tablet PO (08:48)
[2019-04-15] MEDS: Losartan Potassium 50 MG Tablet PO (08:48)
[2019-04-15] MEDS: Aspirin E.C. 81 MG Tablet PO (08:49)
== END 2019-04-15 07:29 | disposition home or self-care (01) ==
LOC: CLSP 10:46 → PCU 04-15 10:43
PROVIDERS: PCP Internal Medicine; Referring Provider Internal Medicine Cardiovascular Disease; Visit Provider Internal Medicine Cardiovascular Disease
DX: I25.5 Ischemic cardiomyopathy (principal); I25.10 Atherosclerotic heart disease of native coronary artery without angina pectoris; E11.9 Type 2 diabetes mellitus without complications; I10 Essential (primary) hypertension; E78.5 Hyperlipidemia, unspecified; Z79.82 Long term (current) use of aspirin; Z79.01 Long term (current) use of anticoagulants; Z79.899 Other long term (current) drug therapy; I25.2 Old myocardial infarction; Z95.5 Presence of coronary angioplasty implant and graft; Z95.1 Presence of aortocoronary bypass graft; I65.23 Occlusion and stenosis of bilateral carotid arteries; Z87.891 Personal history of nicotine dependence
CPT/HCPCS: 33249; 36415; 36416; 71045; 71046; 80048; 85014; 85018; 85610; 93641; 99152; 99153; J7040; J7050; C1894

== ENCOUNTER 2019-07-04 12:35 | Emergency (ER) | payer OTHER, SELFPAY ==
[2019-04-13 12:58] VITALS: BMI 32.0
[2019-07-04 12:36] VITALS: BP 128/84; PULSE 87; RESP 18; TEMP 36.7; O2SAT 98; BMI 31.1
--- NOTE | 2019-07-04 13:11 | CT_ITS ---
STUDY: CT BRAIN WITHOUT CONTRAST REASON FOR EXAM: Male, 73 years old. FALL, HEAD INJURY, LAC ABOVE LEFT EYE -- ON COUMADIN RADIATION DOSAGE (If Supplied By Facility): CTDIvol = ( 44.99 ) mGy, DLP = ( 796.11 ) mGycm TECHNIQUE: Transaxial CT imaging of the brain was performed without administration of intravenous contrast material. Individualized dose optimization techniques were used for this CT. COMPARISON: No relevant priors. FINDINGS: Soft tissue swelling overlying the left orbit. Normal calvarium. There is mild cerebral atrophy with widening of the extra-axial spaces and ventricular dilatation. Normal white matter tracts of the cerebral hemispheres. Normal basal ganglia and thalami. Normal brainstem. Normal cerebellum. There is no intracranial hemorrhage. There are no findings of an acute ischemic infarction. Atherosclerotic calcification of the cavernous portions of the internal carotid arteries bilaterally. Normal visualized paranasal sinuses. CT/Brain/Head without Contrast IMPRESSION: Chronic involutional changes of the brain. Soft tissue swelling overlying the left orbit. Electronically Signed: Garcia Newman, at 13:58 EDT , Service support ,
--- NOTE | 2019-07-04 14:14 | ED.DCSUM_ITS ---
- ER Visit Summary Date of Service: 07/04/19 Chief Complaint: Fall History of Present Illness: The patient is a 73 M who presents with a fall that occurred today. Patient states he was walking to his spine when he lost his balance and fell. Patient hit his left eyebrow area. Patient denies any loss of consciousness. Patient admits to a laceration to his left eyebrow area. Patient denies any visual changes. Patient denies any nausea or vomiting. Patient denies any numbness or weakness. Patient denies any difficulty ambulating after the fall. Currently, patient denies any pain. Patient states his last tetanus was within 5 years. Physical Examination: Vital signs are stable. Patient is afebrile. Patient is in no acute distress. Skin is warm dry. There is a 3 cm full-thickness linear laceration over the left eyebrow. There is no bony crepitance, step-off, or deformity. Pupils are equal, round, and reactive to light bilaterally. Extraocular muscles are intact. Neck is supple. Trachea is midline. There is no JVD. Heart was regular rate and rhythm. Lungs are clear and equal bilateral. Abdomen is soft and nontender. Cranial nerves II through XII are intact. There are no focal motor or sensory deficits. Test Results: CT scan of the brain was obtained. There is no acute intracranial abnormality. This was interpreted by the radiologist and reviewed by myself. Emergency Department Course and Treatment: The wound was cleaned and irrigated with copious amounts of normal saline. The wound was anesthetized with 1% plain lidocaine locally. The wound was closed with 5 simple interrupted #5-0 nylon sutures under sterile technique. Patient tolerated the procedure well. Bacitracin dressing was applied. Patient was instructed to keep the wound clean and dry. Patient was instructed to follow-up with his primary care physician or return to the emergency department for wound recheck and suture removal in 5 days. Patient understood and was agreeable with the plan. All questions were answered. Disposition: Discharge home Impression: 1. Left eyebrow laceration 2. Closed head injury This note was generated with [employer] software. It may contain incorrect words, spelling, and punctuation that were not noted in review of the chart prior to signing ED Disposition - Plan for ED Patient: Disposition: Home or Assisted Living Diagnosis: Laceration of left eyebrow, Closed head injury Instructions: ED Laceration Facial Sutr Tape Referrals: Jordy Saucedo MD [Primary Care Provider] - 5 Days for suture removal
[2019-07-04 16:14] VITALS: BP 124/62; PULSE 84; RESP 18; O2SAT 98
== END 2019-07-04 16:16 | disposition home or self-care (01) ==
PROVIDERS: Emergency Provider Emergency Medicine; PCP Internal Medicine
DX: S01.112A Laceration without foreign body of left eyelid and periocular area, initial encounter (principal); W01.10XA Fall on same level from slipping, tripping and stumbling with subsequent striking against unspecified object, initial encounter; Y93.01 Activity, walking, marching and hiking; Y99.9 Unspecified external cause status; Z79.01 Long term (current) use of anticoagulants; Z79.82 Long term (current) use of aspirin; Z79.899 Other long term (current) drug therapy; I25.2 Old myocardial infarction; Z95.810 Presence of automatic (implantable) cardiac defibrillator; Z95.1 Presence of aortocoronary bypass graft
CPT/HCPCS: 12013; 70450; 99284

== ENCOUNTER 2020-01-18 07:56 | Day surgery (SDC) | payer OTHER, SELFPAY ==
[2019-12-21 08:35] VITALS: BMI 31.1
[2020-01-18] VITALS (7 sets, daily range): BP systolic 95–130; BP diastolic 62–81; PULSE 57–70; RESP 16–18; TEMP 36.2–36.3; O2SAT 93–97; BMI 30.8
--- NOTE | 2020-01-18 | COLBX_PTH ---
PATIENT: OSMAN JONES LOC: EN U#:[id number] AGE/SX: 74/M ROOM: RE01/18/[address]: Dr. Ishaan Walsh MD : 1945 BED: DIS: 01/18/2020 SPEC #: [id number] RECD: 01/18/20 12:30 STATUS: MIKE REFaraz #: [id number] CRISS: 01/18/20 00:[address]: Ishaan Walsh DEPT: SURGICAL PATHOLOGY RECD BY: Fuentes Mosquera ENTERED: 01/18/20 12:30 SP TYPE: COLON BX OTHR DR: Dr. Jordy Saucedo MD Tissues: Sigmoid colon biopsy Procedures: Surgery Specimen Level IV HEADER OPERATION: Colonoscopy (MAC) PRE-OP DIAGNOSIS: Screening TISSUE SUBMITTED: Sigmoid polyp biopsy MICROSCOPIC DIAGNOSIS Sigmoid polyp, biopsy: Hyperplastic polyp. SJ:chata 01/19/20 MICROSCOPIC DESCRIPTION Slides are reviewed. GROSS DESCRIPTION Received in fixative is one container labeled with the patient's name and designated sigmoid polyp biopsy. The specimen consists of two irregular fragments of light mulligan soft tissue that in aggregate measure 0.5 x 0.2 x 0.1 cm. The specimen is totally submitted in one cassette. / SJ:chata 01/18/20 TC:1 CPT: 79520
--- NOTE | 2020-01-18 08:10 | HP_ITS ---
Intake Vital Signs 12/21/19 Height 6 ft 12/21/19 Weight: 230 lb 12/21/19 BMI 31.1 12/21/19 BP 133/84 H 12/21/19 Blood Pressure Location Rt brachial 12/21/19 Position Sitting 12/21/19 Respiration 16 12/21/19 Pulse 72 12/21/19 Pulse Source Monitor 12/21/19 Temp 97.4 F L 12/21/19 Temp Source Temporal 12/21/19 Pulse Oximetry (%) 95 12/21/19 Oxygen Delivery Method room air Intake Visit Reasons: [employer] Journal[employer] Required: No Is patient in pain?: No Allergies No Known Allergies Allergy (Verified 12/21/19 08:36) Medications aspirin 81 mg tablet,delayed release 81 mg PO DAILY 10/25/18 [History Confirmed 12/21/19] atorvastatin 80 mg tablet 80 mg PO QHS #30 tab 02/22/19 [History Confirmed 12/21/19] metoprolol tartrate 25 mg tablet 12.5 mg PO BID #60 tab 02/22/19 [History Confirmed 12/21/19] warfarin 5 mg tablet 5 mg PO DAILY #30 tab 02/22/19 [History Confirmed 12/21/19] nitroglycerin 0.4 mg sublingual tablet 0.4 mg SUBLINGUAL Q5-15M PRN #25 tab 02/24/19 [Rx Confirmed 12/21/19] spironolactone 25 mg tablet 25 mg PO DAILY #30 tab 03/28/19 [Rx Confirmed 12/21/19] amlodipine 2.5 mg tablet 2.5 mg PO DAILY #30 tab 10/14/19 [Rx Confirmed 12/21/19] losartan 50 mg tablet 50 mg PO DAILY tab 12/21/19 [History Confirmed 12/21/19] warfarin 2.5 mg tablet 2.5 mg PO Q OTHER DAY 12/21/19 [History Confirmed 12/21/19] [facility] Medical History Fatigue (Acute) Ischemic cardiomyopathy (Chronic) Bilateral carotid artery stenosis (Chronic) History of myocardial infarction (Acute) 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) Pure hypercholesterolemia (Chronic) Atherosclerotic heart disease of [place] coronary artery without angina pectoris (Chronic) Essential hypertension (Chronic) Surgical History Hx of colonoscopy (Acute) Hx of angioplasty (Acute) History of tonsillectomy (Resolved) History of appendectomy (Resolved) History of shoulder surgery (Resolved) Presence of implantable cardioverter-defibrillator (ICD) (Chronic ~04/14/19) History of coronary artery bypass surgery (Chronic ~10/31/16) Family History Father AAA (abdominal aortic aneurysm, ruptured), Onset Age: 89 Mother Myocardial infarction Sudden cardiac , Onset Age: 80 Brother Hypertension Social History (Updated 12/21/19 @ 09:[address] Ishaan Walsh MD) Smoking Status: Former smoker alcohol intake: never substance use type: does not use caffeine: Yes Type: coffee Number of servings: 1 what type of physical activity do you participate in: none frequency: does not exercise HPI HPI Surgical H&P: Yes HPI: OSMAN JONES, is a 73 M who presents to the office today for Evaluation for colonoscopy. Patient had his last colonoscopy by Dr. Davis in 2008. This was normal. He has not been having 80 changes in his bowel habits his weight is been stable. He has a history of coronary artery disease with a bypass surgery with a WALDEN to the LAD, SVG to the OM, ischemic cardiomyopathy with recent ICD placement, left ventricular apical thrombosis, hypertension, hyperlipidemia, and diabetes. ROS General General: Yes weight change and fatigue; no appetite, colon cancer, breast cancer or weakness HEENT HEENT: No difficulty swallowing, eye injury, eye surgery, swollen glands or hoarseness Endo Endocrine: No thyroid disease, diabetes mellitus, thyroid cancer, Hair loss, heat intolerance or cold intolerance Skin Skin: No rash or changing moles Breast Breast: No left breast lump, right breast lump, nipple discharge, breast pain, abnormal mammogram, abnormal US or breast enlargement Musc Musculoskeletal: No back problems, arthritis, rheumatoid arthritis, gout or joint pain Cardio Cardiovascular: Yes pacemaker, heart disease, atrial fibrillation, high blood pressure, heart attack and heart stent; no murmur, palpitations, shortness of breat with exertion or chest pain Psych Psychiatric: No depression, anxiety or hearing voices Resp Respiratory: No shortness of breath, No sleep apnea, No cough, No COPD, No asthma, No emphysema, No wheezing Gastro Gastrointestinal: No abdominal pain, No nausea or vomiting, No diarrhea, No constipation, No blood in stool, No acid reflux, No hemorrhoids, No ulcers, No gallbladder problem, No black,tarry stools Patrick Hematologic: Yes blood thinners, No blood disorders, No bleeding, No anemia, No blood clots Neuro Neurologic: No weakness Exam Const General: no acute distress, well developed, well hydrated Orientation: oriented to person, oriented to place, oriented to time [facility] Head: normocephalic, atraumatic Ears: external ears normal Mouth: moist mucous membranes Eyes Sclera: sclerae normal Pupils: normal by confrontation Neck Neck: no lymphadenopathy noted Neck mass: No Thyroid: thyroid normal, symmetrical Chest Chest palpation & inspection: normal inspection of the chest Breast Palpation: No nipple discharge Resp Effort & Inspection: normal respiratory effort Auscultation: clear to auscultation bilaterally Percussion: percussion normal Cardio Rate: regular rate Rhythm: regular rhythm Heart Sounds: no murmurs GI Palpation: soft, no hepatosplenomegaly, no masses, nontender Rectal Exam: other Other: Rectal exam deferred. Extrem General: normal to inspection, no clubbing, cyanosis or edema Assessment & Plan Problems 1. Encounter for screening colonoscopy Z12.11 Plan I have discussed the above with the patient. I have offered the patient colonoscopy for evaluation. I have explained the risks/benefits of the procedure and described the procedure. I have discussed the risks with the patient, including but not limited to: infection, bleeding, perforation of the GI tract requiring emergency surgery, inability to complete the procedure, injury to any internal organs, complications of anesthesia, etc. - the patient understands and agrees to proceed. I have answered all the patient's questions to the patient's satisfaction and the patient has no further questions. The patient has been given instructions for the colon cleansing preparation. We will have the patient off his Coumadin 5 days prior to the procedure. If a polyp was removed and I will place a metal clip at the biopsy site. Coding Level of Care Code Off vis,new,level 3 Diagnoses Encounter for screening colonoscopy Z12.11 COVID (Procedure Consent) Procedure Criteria Procedure Criteria: Yes Elective The surgeon/proceduralist and patient have discussed in detail the risk of exposure to and/or potential harm posed by the COVID-19 virus with having a surgery/procedure at this time versus the risk of? delaying the surgery/procedure. It is not possible to know either the risk of delaying the surgery or procedure or chance of getting an infection with perfect accuracy, but a joint decision was made between the patient and the surgeon/proceduralist ?to proceed at this time with the scheduled surgery/procedure as indicated on the consent form. I have re-examined the patient. There are no clinical changes since date of exam.
[2020-01-18 08:25] LABS: Prothrombin Time Fingerstick 13.3 SEC (11.9-14.4)
[2020-01-18] MEDS: Lactated Ringers 1,000 ML 100 ML IV (08:34)
--- NOTE | 2020-01-18 09:23 | OP.CCLET_ITS ---
01/18/2020 Jordy Saucedo [id number] [place] [address] Re : Colonoscopy procedure for Ollie Cunningham Dear Dr. Saucedo This procedure was performed on Saturday, January 18, 2020. My impressions and recommendations are as follows: Impressions : - The examined portion of the ileum was normal. - One 5 mm polyp in the sigmoid colon, removed with a jumbo cold forceps. Resected and retrieved. - Diverticulosis in the sigmoid colon and in the descending colon. No specimens collected. - Non-bleeding internal hemorrhoids. - The examination was otherwise normal. Recommendations : - Discharge patient to home. - Resume previous diet. - Continue present medications. - Await pathology results. - Repeat colonoscopy in 5 years for surveillance. - Telephone my office for pathology results in 1 week. My findings are described in the full procedure note, which is enclosed. If I can be of further assistance, please feel free to contact me at Doctor phone number(s): , Fax: [phone], Work: . Sincerely, MD Ishaan Coles MD 01/18/2020 9:22:46 AM This report has been signed electronically.
--- NOTE | 2020-01-18 09:23 | OP.COLON_ITS ---
Patient Name: Ollie Cunningham Procedure Date: 01/18/2020 8:53 AM Date of : 1945 Age: 74 Procedure: Colonoscopy Indications: Screening for colorectal malignant neoplasm Providers: Ishaan Walsh MD Referring MD: Jordy Saucedo Medicines: See the Anesthesia note for documentation of the administered medications Patient Profile: This is a 74 year old male. Refer to note in patient chart for documentation of history and physical. Last Colonoscopy: 2008. Complications: No immediate complications. Procedure: Pre-Anesthesia Assessment: - Prior to the procedure, a History and Physical was performed, and patient medications and allergies were reviewed. The patient's tolerance of previous anesthesia was also reviewed. The risks and benefits of the procedure and the sedation options and risks were discussed with the patient. All questions were answered, and informed consent was obtained. Prior Anticoagulants: The patient has taken no previous anticoagulant or antiplatelet agents. ASA Grade Assessment: III - A patient with severe systemic disease. After reviewing the risks and benefits, the patient was deemed in satisfactory condition to undergo the procedure. After I obtained informed consent, the scope was passed under direct vision. Throughout the procedure, the patient's blood pressure, pulse, and oxygen saturations were monitored continuously. The adult colonoscope was introduced through the anus and advanced to 5 cm into the ileum. The colonoscopy was performed without difficulty. The patient tolerated the procedure well. The quality of the bowel preparation was good. Scope In: 9:02:41 AM Scope Withdrawal Time 0 hours 9 minutes 44 seconds Scope Out: 9:17:34 AM Total Procedure Duration Time 0 hours 14 minutes 53 seconds Findings: The terminal ileum appeared normal. A 5 mm polyp was found in the sigmoid colon. The polyp was sessile. The polyp was removed with a jumbo cold forceps. Resection and retrieval were complete. Multiple small-mouthed diverticula were found in the sigmoid colon and descending colon. No biopsies or other specimens were collected for this exam. Non-bleeding internal hemorrhoids were found during retroflexion. The hemorrhoids were mild and small. The exam was otherwise without abnormality. Impression: - The examined portion of the ileum was normal. - One 5 mm polyp in the sigmoid colon, removed with a jumbo cold forceps. Resected and retrieved. - Diverticulosis in the sigmoid colon and in the descending colon. No specimens collected. - Non-bleeding internal hemorrhoids. - The examination was otherwise normal. Recommendation: - Discharge patient to home. - Resume previous diet. - Continue present medications. - Await pathology results. - Repeat colonoscopy in 5 years for surveillance. - Telephone my office for pathology results in 1 week. Procedure Code(s): --- Professional --- 77170, Colonoscopy, flexible; with biopsy, single or multiple Diagnosis Code(s): --- Professional --- Z12.11, Encounter for screening for malignant neoplasm of colon K64.8, Other hemorrhoids D12.5, Benign neoplasm of sigmoid colon K57.30, Diverticulosis of large intestine without perforation or abscess without bleeding CPT copyright 2017 [employer]. All rights reserved. The codes documented in this report are preliminary and upon charcoal burner beehive [employer]n review may be revised to meet current compliance requirements. MD Ishaan Coles MD 01/18/2020 9:22:46 AM This report has been signed electronically. Number of Addenda: 0 Note Initiated On: 01/18/2020 8:53 AM
== END 2020-01-18 10:09 | disposition home or self-care (01) ==
LOC: EN 07:57 → AC 07:57
PROVIDERS: PCP Internal Medicine; Referring Provider Internal Medicine; Visit Provider Surgery
PROC: 0DJD8ZZ Inspection of Lower Intestinal Tract, Via Natural or Artificial Opening Endoscopic (ICD-10-PCS; CPT 45378; principal; 2020-01-18 09:10)
DX: Z12.11 Encounter for screening for malignant neoplasm of colon (principal); D12.5 Benign neoplasm of sigmoid colon; K57.30 Diverticulosis of large intestine without perforation or abscess without bleeding; K64.8 Other hemorrhoids; I25.10 Atherosclerotic heart disease of native coronary artery without angina pectoris; I25.5 Ischemic cardiomyopathy; E11.9 Type 2 diabetes mellitus without complications; I10 Essential (primary) hypertension; E78.5 Hyperlipidemia, unspecified; Z79.82 Long term (current) use of aspirin; Z79.01 Long term (current) use of anticoagulants; Z79.899 Other long term (current) drug therapy; I25.2 Old myocardial infarction; Z87.891 Personal history of nicotine dependence; Z95.1 Presence of aortocoronary bypass graft; Z95.810 Presence of automatic (implantable) cardiac defibrillator
CPT/HCPCS: 45380; 36416; 85610; 87426; 88305; C9803; J7120; J1610

== ENCOUNTER 2020-05-15 08:11 | Outpatient (RCR) | payer OTHER, MEDICARE, SELFPAY ==
[2020-01-18 08:25] VITALS: BMI 30.8
[2020-05-15] MEDS: COVID-19 VACC, MRNA(PFIZER)/PF 30 MCG/0.3 ML SYRINGE IM (10:31)
[2020-06-05] MEDS: COVID-19 VACC, MRNA(PFIZER)/PF 30 MCG/0.3 ML SYRINGE IM (09:51)
== END 2020-08-14 23:59 ==
LOC: IMMUN 08:11
PROVIDERS: PCP Internal Medicine; Referring Provider Family Medicine; Visit Provider Family Medicine
DX: Z23 Encounter for immunization (principal)
CPT/HCPCS: 0001A; 0002A; 91300

== ENCOUNTER 2020-07-29 12:13 | Emergency (ER) | payer OTHER, SELFPAY ==
[2020-01-18 08:25] VITALS: BMI 30.8
[2020-07-29 12:14] VITALS: BP 152/93; PULSE 72; RESP 18; TEMP 36.6; O2SAT 98; BMI 31.1
[2020-07-29 12:41] VITALS: PULSE 62; RESP 12
--- NOTE | 2020-07-29 12:51 | CT_ITS ---
STUDY: CT BRAIN WITHOUT CONTRAST REASON FOR EXAM: Male, 74 years old. head trauma on coumadin RADIATION DOSAGE (If Supplied By Facility): CTDIvol = ( 44.99 ) mGy, DLP = ( 866.41 ) mGycm TECHNIQUE: Transaxial CT imaging of the brain was performed without administration of intravenous contrast material. Individualized dose optimization techniques were used for this CT. COMPARISON: 07/04/2019 FINDINGS: Normal soft tissue structures. Normal calvarium. There is mild cerebral atrophy with widening of the extra-axial spaces and ventricular dilatation. Normal white matter tracts of the cerebral hemispheres. Normal basal ganglia and thalami. Normal brainstem. Normal cerebellum. There is no intracranial hemorrhage. There are no findings of an acute ischemic infarction. Normal visualized paranasal sinuses. CT/Brain/Head without Contrast IMPRESSION: Chronic involutional changes of the brain. Electronically Signed: Dmitri Comer MD at 14:08 EDT Tel , Service support ,
--- NOTE | 2020-07-29 12:58 | EDS_ITS ---
HPI History of Present Illness Chief Complaint: Dizziness Informant: patient and spouse/S.O. Onset/Context/Timing Onset: Today Current Severity: Mild Maximum Severity: Mild Narrative Narrative: 74-year-old male history of dizziness. Today was in the bathroom he got dizzy started to fall and hit his right cheek on the corner of the cabinet causing a laceration. He is on Coumadin.. He denies other injuries. Says he is feeling better now. States it is not uncommon for him to have dizzy spells. Prior similar symptoms: Yes Recent Illness/Hospitalization: No PFSH PFS Medical History Atherosclerotic heart disease of [place] coronary artery without angina pectoris Bilateral carotid artery stenosis Coronary-myocardial bridge Essential hypertension Fatigue History of myocardial infarction Ischemic cardiomyopathy Left ventricular apical thrombus Pure hypercholesterolemia Home Medications aspirin 81 mg tablet,delayed release 81 mg PO DAILY 10/25/18 [History Last Taken Unknown] atorvastatin 80 mg tablet 80 mg PO QHS #30 tab 02/22/19 [History Last Taken Unknown] metoprolol tartrate 25 mg tablet 12.5 mg PO BID #60 tab 02/22/19 [History Last Taken 01/18/20 07:15] warfarin 5 mg tablet 5 mg PO SUTH #30 tab 02/22/19 [History Last Taken Unknown] nitroglycerin 0.4 mg sublingual tablet 0.4 mg SUBLINGUAL Q5-15M PRN #25 tab 02/24/19 [Rx Last Taken Unknown] spironolactone 25 mg tablet 25 mg PO DAILY #30 tab 03/28/19 [Rx Last Taken Unknown] losartan 50 mg tablet 50 mg PO DAILY tab 12/21/19 [History Last Taken 01/18/20 07:15] warfarin 2.5 mg tablet 2.5 mg PO MOTUWEFRSA 12/21/19 [History Last Taken Unknown] amlodipine 2.5 mg PO 1200 01/13/20 [History Last Taken Unknown] Allergy/AdvReac Type Severity Reaction Status Date / Time No Known Allergies Allergy Verified 07/29/20 12:16 Family History Father AAA (abdominal aortic aneurysm, ruptured), Onset Age: 89 Mother Myocardial infarction Sudden cardiac , Onset Age: 80 Brother Hypertension Surgical History History of appendectomy History of coronary artery bypass surgery (~10/31/16) History of shoulder surgery History of tonsillectomy Hx of angioplasty Hx of colonoscopy Presence of implantable cardioverter-defibrillator (ICD) (~04/14/19) Social History Smoking Status: Former smoker alcohol intake: never substance use type: does not use caffeine: Yes Type: coffee Number of servings: 1 what type of physical activity do you participate in: none frequency: does not exercise ROS ROS ED ROS Narrative Patient denies any recent illness. He denies palpitations, chest pain. Review of Systems ROS Unobtainable: Denies due to encephalopathy Constitutional Constitutional ED: Denies fever(s) Eyes Eyes: Denies change in vision ENT ENT ED: Denies ear pain or sore throat Cardiovascular Cardiovascular: Denies chest pain or palpitations Respiratory/Chest Respiratory/Chest: Denies dyspnea Gastrointestinal Gastrointestinal: Denies abdominal pain, diarrhea, nausea or vomiting Genitourinary Genitourinary ED: Denies dysuria or hematuria Musculoskeletal Musculoskeletal: Denies myalgias Integumentary Denies rash Neurologic Neurologic: Reports headache(s) Psychiatric Psychiatric: Denies depression Endocrine Endocrinology: Denies polyuria Allergic/Immunologic Allergic/Immunologic ED: Denies urticaria EXAM Physical Exam Narrative Exam Narrative: Older male no acute distress. Vital signs stable he is afebrile. He does not look septic or toxic. H EENT exam is laceration on his right cheek which will need repaired. He has bruising about his right eye. Pupils round reactive light. Scalp nontender. C-spine nontender. Trachea midline. Lungs are clear. Heart regular rhythm. Chest wall nontender is a mild abrasion left chest wall. Is a pacemaker defibrillator underneath the left chest wall. Abdomen soft nontender. Patient moving all extremities. Normal fly raiser lockstitch strength. No deformity. Nontender. Dorsi plantar flexion intact. Back nontender. Neurologically is awake alert with no focal motor deficits. Const Vital Signs: 07/29/20 12:14 07/29/20 12:41 07/29/20 15:28 Temperature 98 F Temperature Source Temporal Pulse Rate 72 62 61 Respiratory Rate 18 12 16 Respiratory Effort Normal Non-Labored Respiratory Pattern Normal Blood Pressure 152/93 H 161/82 H Blood Pressure Mean 112 108 Pulse Ox 98 98 Oxygen Delivery Method Room Air Room Air Positive well nourished and well developed General Appearance ED: well developed HEENT Reports moist mucous membranes HEENT Narrative: Bruising about his right eye. Laceration right cheek. trauma and tenderness Eyes PERRL and EOMs intact bilaterally Neck no lymphadenopathy, supple and no JVD General: Negative for tenderness Chest Wall inspection of chest normal Chest Narrative: Left chest abrasion. Does not need 7. Resp normal respiratory effort and clear to auscultation bilaterally Cardio regular rate, regular rhythm and no murmurs GI normal to inspection, nondistended, normoactive bowel sounds, non-tender, non- distended and no masses Auscultation: normoactive bowel sounds Palpation: soft; Negative for tender Back/Spine no CVA tenderness Extremity normal to inspection General Extremety ED: Negative for edema or tenderness General Extremity: Negative for edema Neuro oriented x3 and CN's II-XII intact bilaterally Sensorium / Orientation: alert Motor Exam: strength 5/5 throughout Psych mental status grossly normal Skin no rashes or lesions noted MDM MDM MDM Narrative Medical decision making narrative: Older male fall with right cheek laceration that will need repaired. Tetanus will be updated. He is on Coumadin CAT scan of his brain to be obtained. CAT scan read of the brain is no acute abnormality. No obvious fracture seen. If this is not improving and following up and get a CT of the orbits. Repeat exam he is currently doing well at 4:25 PM. Radiography Diagnostic Testing: Radiology Impression Brain CT 07/29/20 12:51 IMPRESSION: Chronic involutional changes of the brain. Electronically Signed: Dmitri Comer MD at 14:08 EDT Tel , Service support , Procedures Lacerations Right cheek laceration: Length: 1.97 in Depth: Sub Q Shape: Linear Prep: Sterile Conditions and Shure-Clens Laceration repair: Irrigated and Local Number of Sutures/Gianluca: 5 Suture Information: Ethilon Comment: Cleaned with Shur-Clens washed with saline. Explored. No foreign body. Locally anesthetized with lidocaine. Closed using 5 simple interrupted 5-0 Ethilon sutures. Proper hemostasis wound closure was obtained. Patient tolerated procedure well. Discharge Plan Triage Chief Complaint: Dizziness ED Provider: Sterling Quintanilla Dx/Rx/DC Orders Clinical Impression: Fall, Facial laceration, Anticoagulation adequate Instructions: ED Head Injury (Adult), ED Laceration: All Closures Prescriptions: No Action aspirin [Adult Aspirin Regimen] 81 mg tablet,delayed release (DR/EC) 81 mg PO DAILY RF: 0 warfarin 5 mg tablet 5 mg PO SUTH Qty: 30 RF: 0 atorvastatin 80 mg tablet 80 mg PO QHS Qty: 30 RF: 0 metoprolol tartrate 25 mg tablet 12.5 mg PO BID Qty: 60 RF: 0 nitroglycerin 0.4 mg tablet, sublingual 0.4 mg SUBLINGUAL Q5-15M PRN (Reason: chest pain) Qty: 25 RF: 1 spironolactone [Aldactone] 25 mg tablet 25 mg PO DAILY Qty: 30 RF: 11 losartan 50 mg tablet 50 mg PO DAILY RF: 0 warfarin 2.5 mg tablet 2.5 mg PO MOTUWEFRSA RF: 0 amlodipine 2.5 MG tablet 2.5 mg PO 1200 RF: 0 Primary Care Provider: Jordy Saucedo Referrals: Jordy Saucedo MD [Primary Care Provider] - 7 Days for suture removal Activity Restrictions/Additional Instructions: Ice to your face to decrease pain and swelling. Stitches taken out in 7 to 10 days not before. If you get a severe headache, vomiting or not acting right you need to be reevaluated in the emergency department. They did not see any broken bones on your CAT scan today. If this does not improve over the next several weeks he can always get a CAT scan of the bones of your face. Disposition Disposition: Home, self care
[2020-07-29] MEDS: Diphth,Pertuss(Acell),Tet Vac 0.5 ML Vial IM (13:22)
[2020-07-29] MEDS: Lidocaine/Epi/Tetracaine 50 ML 1 APPLIC TOPICAL (13:23)
[2020-07-29] MEDS: Lidocaine 1% (20 ml mdv) 20 ML Vial 6 ML INFILT (13:23)
[2020-07-29 15:28] VITALS: BP 161/82; PULSE 61; RESP 16; O2SAT 98
[2020-07-29 16:57] VITALS: BP 161/82
[2020-07-29 17:09] LABS: Prothrombin Time (Protime)PT. 22.1 SECONDS (11.7-14.9)
== END 2020-07-29 16:59 | disposition home or self-care (01) ==
PROVIDERS: Emergency Provider Emergency Medicine; PCP Internal Medicine
DX: S01.81XA Laceration without foreign body of other part of head, initial encounter (principal); S05.11XA Contusion of eyeball and orbital tissues, right eye, initial encounter; S20.312A Abrasion of left front wall of thorax, initial encounter; R42 Dizziness and giddiness; Z23 Encounter for immunization; W01.198A Fall on same level from slipping, tripping and stumbling with subsequent striking against other object, initial encounter; Y93.9 Activity, unspecified; Y92.002 Bathroom of unspecified non-institutional (private) residence as the place of occurrence of the external cause; Y99.9 Unspecified external cause status; I25.10 Atherosclerotic heart disease of native coronary artery without angina pectoris; I25.5 Ischemic cardiomyopathy; I10 Essential (primary) hypertension; E78.00 Pure hypercholesterolemia, unspecified; Z79.82 Long term (current) use of aspirin; Z79.01 Long term (current) use of anticoagulants; Z79.899 Other long term (current) drug therapy; I25.2 Old myocardial infarction; Z87.891 Personal history of nicotine dependence; Z95.810 Presence of automatic (implantable) cardiac defibrillator; Z95.1 Presence of aortocoronary bypass graft
CPT/HCPCS: 12013; 36415; 70450; 85610; 90471; 90715; 99284

== ENCOUNTER 2020-08-06 10:58 | Emergency (ER) | payer OTHER, SELFPAY ==
[2020-08-06 10:59] VITALS: BP 159/95; PULSE 65; RESP 18; TEMP 36.6; O2SAT 98; BMI 31.1
--- NOTE | 2020-08-06 11:23 | EX.ED.DYSGE1 ---
HPI History of Present Illness Chief Complaint: Wound Check Narrative Narrative: 74-year-old male presents for suture removal. States about approximately 1 week ago he fell out of the shower and struck his right face. Had a negative CT at that time. Had 5 sutures placed. No difficulty since that time. [facility] Medical History Atherosclerotic heart disease of [place] coronary artery without angina pectoris Bilateral carotid artery stenosis Coronary-myocardial bridge Essential hypertension Fatigue History of myocardial infarction Ischemic cardiomyopathy Left ventricular apical thrombus Pure hypercholesterolemia Home Medications aspirin 81 mg tablet,delayed release 81 mg PO DAILY 10/25/18 [History Last Taken Unknown] atorvastatin 80 mg tablet 80 mg PO QHS #30 tab 02/22/19 [History Last Taken Unknown] metoprolol tartrate 25 mg tablet 12.5 mg PO BID #60 tab 02/22/19 [History Last Taken 01/18/20 07:15] warfarin 5 mg tablet 5 mg PO SUTH #30 tab 02/22/19 [History Last Taken Unknown] nitroglycerin 0.4 mg sublingual tablet 0.4 mg SUBLINGUAL Q5-15M PRN #25 tab 02/24/19 [Rx Last Taken Unknown] spironolactone 25 mg tablet 25 mg PO DAILY #30 tab 03/28/19 [Rx Last Taken Unknown] losartan 50 mg tablet 50 mg PO DAILY tab 12/21/19 [History Last Taken 01/18/20 07:15] warfarin 2.5 mg tablet 2.5 mg PO MOTUWEFRSA 12/21/19 [History Last Taken Unknown] amlodipine 2.5 mg PO 1200 01/13/20 [History Last Taken Unknown] Allergy/AdvReac Type Severity Reaction Status Date / Time No Known Allergies Allergy Verified 08/06/20 11:00 Family History Father AAA (abdominal aortic aneurysm, ruptured), Onset Age: 89 Mother Myocardial infarction Sudden cardiac , Onset Age: 80 Brother Hypertension Surgical History History of appendectomy History of coronary artery bypass surgery (~10/31/16) History of shoulder surgery History of tonsillectomy Hx of angioplasty Hx of colonoscopy Presence of implantable cardioverter-defibrillator (ICD) (~04/14/19) Social History Smoking Status: Former smoker alcohol intake: never substance use type: does not use caffeine: Yes Type: coffee Number of servings: 1 what type of physical activity do you participate in: none frequency: does not exercise ROS ROS ED Constitutional Constitutional ED: Denies chills or fever(s) Eyes Eyes: Denies blurry vision Integumentary Reports other Details: Bruising to the right face. Neurologic Neurologic: Denies headache(s) EXAM Physical Exam Const Vital Signs: 08/06/20 10:59 Temperature 97.9 F Temperature Source Temporal Pulse Rate 65 Respiratory Rate 18 Blood Pressure 159/95 H Blood Pressure Mean 116 Pulse Ox 98 Oxygen Delivery Method Room Air Positive well nourished and well developed General Appearance ED: well developed HEENT Reports TM's clear and moist mucous membranes HEENT Narrative: Bruising extending from the right maxillary area down under the submandibular and into the right and midline neck. Soft and without hematoma. 5 sutures with a well-healed laceration approximately 2 inches to the right cheek. normocephalic and atraumatic Tympanic Membrane ED: Yes TM's clear Eyes EOMs intact bilaterally Neck no lymphadenopathy, supple and no JVD Neck Narrative: Described ecchymosis. Cardio Peripheral Pulses: pulses 2+ throughout GI soft to palpation Back/Spine no thoracic nor lumbar tenderness Neuro Sensorium / Orientation: alert Psych mental status grossly normal Skin Skin Narrative: Described ecchymosis and well-healed laceration. MDM MDM MDM Narrative Medical decision making narrative: Patient had 5 simple interrupted sutures removed without difficulty. Wound appears well-healed. Will be dressed and asked to follow-up with his primary care physician within the next 2 to 3 days. Asked to return for any new or worsening symptoms. Patient agreeable and discharged home in stable condition. Discharge Plan Triage Chief Complaint: Wound Check ED Provider: Og Molina Dx/Rx/DC Orders Clinical Impression: Visit for suture removal Instructions: ED Stitches/Staple Removal No ..., ED Wound Check (No Infection) Prescriptions: No Action aspirin [Adult Aspirin Regimen] 81 mg tablet,delayed release (DR/EC) 81 mg PO DAILY RF: 0 warfarin 5 mg tablet 5 mg PO SUTH Qty: 30 RF: 0 atorvastatin 80 mg tablet 80 mg PO QHS Qty: 30 RF: 0 metoprolol tartrate 25 mg tablet 12.5 mg PO BID Qty: 60 RF: 0 nitroglycerin 0.4 mg tablet, sublingual 0.4 mg SUBLINGUAL Q5-15M PRN (Reason: chest pain) Qty: 25 RF: 1 spironolactone [Aldactone] 25 mg tablet 25 mg PO DAILY Qty: 30 RF: 11 losartan 50 mg tablet 50 mg PO DAILY RF: 0 warfarin 2.5 mg tablet 2.5 mg PO MOTUWEFRSA RF: 0 amlodipine 2.5 MG tablet 2.5 mg PO 1200 RF: 0 Primary Care Provider: Jordy Saucedo Referrals: Jordy Saucedo MD [Primary Care Provider] - As Needed Disposition Disposition: Home, self care
== END 2020-08-06 11:39 | disposition home or self-care (01) ==
LOC: ED 11:34
PROVIDERS: Emergency Provider Emergency Medicine; PCP Internal Medicine
DX: Z48.02 Encounter for removal of sutures (principal); I25.10 Atherosclerotic heart disease of native coronary artery without angina pectoris; Z87.891 Personal history of nicotine dependence
CPT/HCPCS: 99283

== ENCOUNTER 2021-03-28 11:19 | Outpatient (CLI) | payer OTHER, SELFPAY ==
[2021-03-28 11:32] LABS: International Normalized Ratio 2.4; Prothrombin Time (Protime)PT. 25.1 SECONDS (11.7-14.9)
== END 2021-03-28 23:59 | disposition short-term general hospital (02) ==
LOC: LABSPEC 11:20
PROVIDERS: PCP Internal Medicine; Visit Provider Internal Medicine
DX: Z79.01 Long term (current) use of anticoagulants (principal)
CPT/HCPCS: 85610

== ENCOUNTER 2022-01-21 08:59 | Observation (INO) | payer OTHER, MEDICARE, SELFPAY ==
[2022-01-21] VITALS (7 sets, daily range): BP systolic 113–162; BP diastolic 8–99; PULSE 66–90; RESP 16–18; TEMP 36.4–37.1; O2SAT 95–100; BMI 29.2; BMI 30.8
--- NOTE | 2022-01-21 09:30 | EDS_ITS ---
HPI History of Present Illness Chief Complaint: Weakness Informant: patient, spouse/S.O. and EMS Narrative Narrative: 76-year-old male presenting to the emergency room with chief complaint of weakness and back pain. The patient has been falling for years. He states this become more frequently. He reports extensive testing including MRIs CAT scans and nerve conduction test. He does not know why he falls. He states that when he stands up he just gets weak. He never loses consciousness. He has not had chest pain or palpitations. He has not found himself on the ground sweaty or pale. There is a discrepancy between his story and his story of dizziness. He maintains that he does not get dizzy. He has no sensation that the room is spinning. He states that as he stands up he begins to get lightheaded and then fall down. He reports that he used to be able to get himself up off the ground but now has been having to require help from his and son. He states that he sleeps in a recliner. Today he was unable to get out of the chair. notes that a few days ago he fell causing injury to his left periorbital region. He also notes pain in his mid back. He denies any radicular symptoms. [facility] Medical History Atherosclerotic heart disease of [place] coronary artery without angina pectoris Bilateral carotid artery stenosis Coronary-myocardial bridge Essential hypertension Facial laceration Fall Fatigue History of myocardial infarction Ischemic cardiomyopathy Left ventricular apical thrombus Pure hypercholesterolemia Home Medications aspirin 81 mg tablet,delayed release (Adult Aspirin Regimen) 81 mg PO DAILY 10/25/18 [History Last Taken Unknown] metoprolol tartrate 25 mg tablet 12.5 mg PO BID #60 tabs 02/22/19 [History Last Taken 01/18/20 07:15] nitroglycerin 0.4 mg sublingual tablet 0.4 mg sublingual Q5-15M PRN chest pain #25 tabs 02/24/19 [Rx Last Taken Unknown] spironolactone 25 mg tablet (Aldactone) 25 mg PO DAILY #30 tabs 03/28/19 [Rx Last Taken Unknown] losartan 50 mg tablet 50 mg PO DAILY 12/21/19 [History Last Taken 01/18/20 07:15] amlodipine 2.5 mg tablet 2.5 mg PO 1200 01/13/20 [History Last Taken Unknown] atorvastatin 80 mg tablet 80 mg PO QHS #30 tabs 08/27/21 [History Last Taken Unknown] warfarin 2.5 mg tablet 2.5 mg PO MOTUWEFRSA 08/27/21 [History Last Taken Unknown] warfarin 5 mg tablet 5 mg PO SUTUTH #30 tabs 08/27/21 [History Last Taken Unknown] Allergy/AdvReac Type Severity Reaction Status Date / Time No Known Allergies Allergy Verified 08/27/21 11:34 Family History Father AAA (abdominal aortic aneurysm, ruptured), Onset Age: 89 Mother Myocardial infarction Sudden cardiac , Onset Age: 80 Brother Hypertension Surgical History History of appendectomy History of coronary artery bypass surgery (~10/31/16) History of shoulder surgery History of tonsillectomy Hx of angioplasty Hx of colonoscopy Presence of implantable cardioverter-defibrillator (ICD) (~04/14/19) Social History Smoking Status: Former smoker how long ago did patient quit smokin alcohol intake: never substance use type: does not use caffeine: Yes Type: coffee Number of servings: 1 what type of physical activity do you participate in: none frequency: does not exercise ROS ROS ED Constitutional Constitutional ED: Denies chills, fever(s) or weight loss Eyes Eyes: Denies change in vision or diplopia ENT ENT ED: Denies ear pain, rhinorrhea or sore throat Cardiovascular Cardiovascular: Denies chest pain, orthopnea, palpitations or racing heartbeat Respiratory/Chest Respiratory/Chest: Denies cough, dyspnea or orthopnea Gastrointestinal Gastrointestinal: Denies abdominal pain, diarrhea, nausea or vomiting Genitourinary Genitourinary ED: Denies dysuria, hematuria or urinary frequency Musculoskeletal Musculoskeletal: Denies arthralgias or myalgias Integumentary Reports Abrasions; Denies abscess or rash Neurologic Neurologic: Reports weakness; Denies headache(s) Psychiatric Psychiatric: Denies anxiety, depression, suicidal ideation or suicidal thoughts Endocrine Endocrinology: Denies polydipsia, polyphagia or polyuria Allergic/Immunologic Allergic/Immunologic ED: Denies mouth swelling, tongue swelling or urticaria EXAM Physical Exam Const Vital Signs: 01/21/22 09:00 01/21/22 09:03 01/21/22 10:33 Temperature 97.8 F Temperature Source Temporal Pulse Rate 71 Pulse Rate [Lying] 71 Pulse Rate [Sitting (for 1 minute prior to obtaining)] 77 Pulse Rate [Standing (for 1 minute prior to obtaining)] 90 Respiratory Rate 16 Respiratory Effort Normal Blood Pressure 159/89 H Blood Pressure [Lying] 159/8 H Blood Pressure [Sitting (for 1 minute prior to obtaining)] 113/99 H Blood Pressure [Standing (for 1 minute prior to obtaining)] 162/95 H Blood Pressure Mean 112 Blood Pressure Mean [Lying] 58 Blood Pressure Mean [Sitting (for 1 minute prior to obtaining)] 103 Blood Pressure Mean [Standing (for 1 minute prior to obtaining)] 117 Pulse Ox 95 Oxygen Delivery Method Nasal Cannula Positive well nourished, well developed and obese General Appearance ED: well developed Nutritional Appearance: obese HEENT Reports normocephalic and moist mucous membranes HEENT Narrative: There is a yellow to green periorbital ecchymosis of the left orbit. There is a healing laceration to the left eyebrow. There is no hyphema or subconjunctival hemorrhage. Extraocular motions are intact. Eyes PERRL and EOMs intact bilaterally Neck no lymphadenopathy, supple and no JVD Resp normal respiratory effort and clear to auscultation bilaterally Cardio regular rate, regular rhythm and no murmurs GI normal to inspection, nondistended, normoactive bowel sounds and non-tender Palpation: soft Back/Spine no CVA tenderness Back/Spine Narrative: There are a couple superficial abrasions to the mid thoracic spine. Diffuse tenderness to palpation in the paraspinal musculature of the thoracic spine. Thoracic Spine / Upper Back: thoracic spinal tenderness Extremity normal to inspection General Extremety ED: Negative for edema General Extremity: Negative for edema Neuro oriented x3 and CN's II-XII intact bilaterally Neuro Narrative: Patient has normal deep tendon reflexes. He is able to lift his legs up off the bed while in a laying position. He has normal [id number] and heel lynn test. Sensorium / Orientation: alert Motor Exam: strength 5/5 throughout Psych mental status grossly normal Mood & Affect: Negative for depressed or tearful Skin no rashes or lesions noted and no wounds MDM MDM MDM Narrative Medical decision making narrative: Basic blood work was obtained and was negative. His INR is slightly subtherapeutic at 1.8. Urinalysis is normal. CT of the brain was obtained and was negative for hemorrhage or fracture. CT of the thoracic spine was negative for fracture. I spoke with the patient and his at length. They are concerned about his increase in falling and now that he is unable to get himself off the floor. They do not feel safe at home. He is reasonable that we admit for PT OT eval and possibly for rehab placement. He does not wish to end up in a wheelchair but that may be unfortunately an option. Lab Data Attestation: I reviewed the patient's lab results. Labs: Laboratory Results - last 24 hr 01/21/22 01/21/22 01/21/22 09:50 09:50 09:50 WBC 7.2 RBC 5.23 Hgb 15.9 Hct 48.4 MCV 92.5 MCH 30.4 MCHC 32.9 RDW Std Deviation 46.6 H RDW Coeff of Jil 13.7 Plt Count 131 L MPV 11.2 Immature Gran % (Auto) 0.600 Neut % (Auto) 67.2 Lymph % (Auto) 12.0 L [place] % (Auto) 19.8 H Eos % (Auto) 0.1 Baso % (Auto) 0.3 Absolute Neuts (auto) 4.9 Absolute Lymphs (auto) 0.87 Nucleated RBC % 0 PT 20.1 H INR 1.8 APTT 39.9 H Sodium 141 Potassium 3.9 Chloride 106 Carbon Dioxide 28.0 Anion Gap 7 BUN 17 Creatinine 1.07 Estim Creat Clear Calc 64.47 Est GFR (MDRD) Af Amer 86 Est GFR (MDRD) Non-Af 71 BUN/Creatinine Ratio 15.9 Glucose 94 Calcium 8.2 L Total Bilirubin 1.40 H AST 52 H ALT 43 Alkaline Phosphatase 87 Troponin I High Sens 12 Total Protein 6.9 Albumin 3.4 Globulin 3.5 Albumin/Globulin Ratio 1.0 Lipase 83 Urine Color Urine Clarity Urine pH Ur Specific [place] Urine Protein Urine Glucose (UA) Urine Ketones Urine Occult Blood Urine Nitrite Urine Bilirubin Urine Urobilinogen Ur Leukocyte Esterase Urine RBC Urine WBC Ur Squamous Epith Cells Urine Bacteria Urine Mucus 11/15/22 11:13 WBC RBC Hgb Hct MCV MCH MCHC RDW Std Deviation RDW Coeff of Jil Plt Count MPV Immature Gran % (Auto) Neut % (Auto) Lymph % (Auto) [place] % (Auto) Eos % (Auto) Baso % (Auto) Absolute Neuts (auto) Absolute Lymphs (auto) Nucleated RBC % PT INR APTT Sodium Potassium Chloride Carbon Dioxide Anion Gap BUN Creatinine Estim Creat Clear Calc Est GFR (MDRD) Af Amer Est GFR (MDRD) Non-Af BUN/Creatinine Ratio Glucose Calcium Total Bilirubin AST ALT Alkaline Phosphatase Troponin I High Sens Total Protein Albumin Globulin Albumin/Globulin Ratio Lipase Urine Color Yellow Urine Clarity Clear Urine pH 5.0 Ur Specific [place] 1.025 Urine Protein 30 H Urine Glucose (UA) Normal Urine Ketones 50 H Urine Occult Blood 50 H Urine Nitrite Negative Urine Bilirubin Negative Urine Urobilinogen Normal Ur Leukocyte Esterase Negative Urine RBC 0-5 SEEN Urine WBC 0 SEEN Ur Squamous Epith Cells 0 SEEN Urine Bacteria 0 SEEN Urine Mucus 0 SEEN Radiography Diagnostic Testing: Clinical Impression(s) from Imaging Studies Brain CT 01/21/22 09:36 IMPRESSION: Chronic involutional changes of the brain. Electronically Signed: Garcia Newman MD at 11:00 EST , Thoracic Spine CT 01/21/22 09:36 IMPRESSION: Multilevel disc space narrowing and mild spondylosis. Electronically Signed: Garcia Newman MD at 11:02 EST , EKG Initial EKG: Attestation: I personally reviewed and interpreted this EKG as follows: Comments: Normal sinus rhythm with a ventricular rate of 70 bpm Discharge Plan Dx/Rx/DC Orders Clinical Impression: Ischemic cardiomyopathy, Subtherapeutic anticoagulation, Frequent falls, Back contusion, Contusion of face Disposition Disposition: Acute Care Hospital [facility]
--- NOTE | 2022-01-21 09:36 | EKG12_ITS ---
Test Reason : Blood Pressure : / mmHG Vent. Rate : 070 BPM Atrial Rate : 070 BPM P-R Int : 172 ms QRS Dur : 084 ms QT Int : 378 ms P-R-T Axes : -09 -33 089 degrees QTc Int : 408 ms Normal sinus rhythm Left axis deviation Minimal voltage criteria for LVH, may be normal variant ( R in aVL ) Septal infarct , age undetermined Abnormal ECG Confirmed by GURJIT MOORE, JENNIFER ([id number]), society editor GROVER TURNER ([id number]) on 01/22/2022 2:37:55 PM Referred By: Confirmed By:JENNIFER CAGLE MD
--- NOTE | 2022-01-21 09:36 | CT_ITS ---
STUDY: CT THORACIC SPINE WITHOUT CONTRAST REASON FOR EXAM: Male, 76 years old. Back pain due to a fall. RADIATION DOSAGE (If Supplied By Facility): CTDIvol = ( 39.84 ) mGy, DLP = ( 1804.7 ) mGycm TECHNIQUE: The patient was scanned in a multi detector CT scanner. High resolution imaging was performed. Images were obtained from T1 to T12 vertebral level. Sagittal and coronal images were reconstructed. Individualized dose optimization techniques were used for this CT. COMPARISON: None. FINDINGS: Normal visualized cervical spine. There is an increased kyphosis of the thoracic spine. There is no substantial scoliosis. There is multilevel endplate spondylosis of the thoracic spine. There is multilevel degenerative disc disease with loss of the disc space heights. The soft tissue structures are unremarkable. CT/Spine Thoracic without Contras IMPRESSION: Multilevel disc space narrowing and mild spondylosis. Electronically Signed: Garcia Newman MD at 11:02 EST ,
--- NOTE | 2022-01-21 09:36 | CT_ITS ---
STUDY: CT BRAIN WITHOUT CONTRAST REASON FOR EXAM: Male, 76 years old. Recurrent falls. Weakness. RADIATION DOSAGE (If Supplied By Facility): CTDIvol = ( 44.99 ) mGy, DLP = ( 762.36 ) mGycm TECHNIQUE: Transaxial CT imaging of the brain was performed without administration of intravenous contrast material. Individualized dose optimization techniques were used for this CT. COMPARISON: Comparison is made with prior study dated 07/29/2020. FINDINGS: Normal soft tissue structures. Normal calvarium. There is mild cerebral atrophy with widening of the extra-axial spaces and ventricular dilatation. Normal white matter tracts of the cerebral hemispheres. Normal basal ganglia and thalami. Normal brainstem. There is mild cerebellar atrophy. There is no intracranial hemorrhage. There are no findings of an acute ischemic infarction. Atherosclerotic calcification of the vertebral arteries and cavernous portions of the internal carotid arteries bilaterally. Normal visualized paranasal sinuses. CT/Brain/Head without Contrast IMPRESSION: Chronic involutional changes of the brain. Electronically Signed: Garcia Newman MD at 11:00 EST ,
[2022-01-21 10:05] LABS: Absolute Lymphocyte Count 0.87 X10^3/uL (0.83-4.51); Absolute Neutrophil Count 4.9 X10^3/uL (2.0-7.7); Basophil# 0.02 X10^3/uL; Basophil% 0.3 % (0-1); Eosinophil# 0.01 X10^3/uL; Eosinophils% 0.1 % (0-5); Hematocrit 48.4 % (40-54); Hemoglobin 15.9 g/dL (13.0-16.5); Lymphocyte # 0.87 X10^3/ul (0.83-4.51); Mean Corp Hgb Conc 32.9 g/dL (32-36); Mean Corpuscular Hgb 30.4 pg (27.0-32.0); Mean Corpuscular Volume 92.5 fL (80-94); Mean Platelet Vol. 11.2 fl (6.2-12.0); Monocyte# 1.43 X10^3/uL; Monocyte% 19.8 % (0-10); NRBC Flagged by Analyzer 0 % (0-5); Neutrophil # 4.85 X10^3/uL (2.7-7.7); Neutrophil % 67.2 % (47-70); Platelet Count 131 K/mm3 (150-450); RBC Distribution Width CV 13.7 % (11.6-14.6); RBC Distribution Width SD 46.6 fl (35.1-43.9); Red Blood Count 5.23 M/mm3 (4.6-6.2); White Blood Count 7.2 K/mm3 (4.4-11.0)
[2022-01-21 10:12] LABS: International Normalized Ratio 1.8; Prothrombin Time (Protime)PT. 20.1 SECONDS (11.7-14.9)
[2022-01-21 10:13] LABS: Partial Thromboplast Time 39.9 Seconds (24.1-36.2)
[2022-01-21 10:26] LABS: AST(SGOT) 52 U/L (15-37); Alanine Aminotransfer ALT/SGPT 43 U/L (16-61); Albumin, Serum 3.4 g/dL (3.2-5.0); Alkaline Phosphatase 87 U/L (45-117); Anion Gap 7 (5-15); BUN 17 mg/dL (7-18); BUN/Creat Ratio 15.9 RATIO (10-20); Calcium,Total 8.2 mg/dL (8.5-10.1); Chloride 106 mmol/L (98-107); Creatinine, Serum 1.07 mg/dL (0.70-1.30); EST Glomerular Filtration Rate 71 mL/min (>60); Est Glom Filt Rate - Afr Amer 86 mL/min (>60); Estimated Creatinine Clearance 64.47 ml/min; Globulin 3.5 g/dL (2.2-4.2); Glucose 94 mg/dL (74-106); Lipase 83 U/L (73-393); Potassium 3.9 mmol/L (3.5-5.1); Protein, Total 6.9 g/dL (6.4-8.2); Sodium Level 141 mmol/L (136-145); Troponin-I HS 12 pg/mL (3.0-78.0)
[2022-01-21 11:19] LABS: Bacteria 0 SEEN /hpf (None Seen); Mucous, Urine 0 SEEN /hpf (<or=2+); Squamous Epithelial Cells - UA 0 SEEN /hpf (0-5); White Blood Cells 0 SEEN /hpf (0-5)
[2022-01-21 11:20] LABS: Color, Urine Yellow (Yellow); Glucose, Dipstick Normal (Normal); Ketone-Dipstick 50 mg/dl (Negative); Leukocyte Esterase-Dipstick Negative /ul (Negative); Nitrite-Dipstick Negative (Negative); Occult Blood-Urine 50 /ul (Negative); Protein-Dipstick 30 mg/dl (Negative); Specific Gravity, Urine 1.025 (1.002-1.030); Urine Bilirubin Dipstick Negative (Negative); Urine Clarity Clear (Clear); Urine Urobilinogen Normal (Normal)
[2022-01-21 11:27] LABS: Red Blood Cells-Urine 0-5 SEEN /hpf (0-5)
--- NOTE | 2022-01-21 12:06 | PCM.HP.STD ---
HPI - General General Date of Admission: 01/21/22 Date of Service: 01/21/22 Chief Complaint: Recurrent falls HPI Narrative OLLIE JONES, is a 76 M who presents with recurrent falls. Patient has significant medical comorbidities including coronary artery disease status post CABG, ischemic cardiomyopathy status post AICD, left ventricular apical thrombus for which patient is on systemic anticoagulation with Coumadin who presented with recurrent falls. Per patient's who provided much of the history patient has had falls for 3 to 4 years. Patient has undergone extensive work-up by neurology as outpatient has had multiple EMGs MRIs as well as Holter monitoring without any identifiable cause. Patient has had increasing falls for the past 2 weeks. A day prior to coming in he did fall sustaining an injury over the left eyelid. Presented to the emergency department as a result. Work-up including CT of the head came back unremarkable admitted for PT OT eval and director of social media marketing to assist with disposition [facility] Medical History Atherosclerotic heart disease of [place] coronary artery without angina pectoris Bilateral carotid artery stenosis Coronary-myocardial bridge Essential hypertension Facial laceration Fall Fatigue History of myocardial infarction Ischemic cardiomyopathy Left ventricular apical thrombus Pure hypercholesterolemia Home Medications aspirin 81 mg tablet,delayed release (Adult Aspirin Regimen) 81 mg PO DAILY 10/25/18 [History Last Taken Unknown] metoprolol tartrate 25 mg tablet 12.5 mg PO BID #60 tabs 02/22/19 [History Last Taken 01/18/20 07:15] nitroglycerin 0.4 mg sublingual tablet 0.4 mg sublingual Q5-15M PRN chest pain #25 tabs 02/24/19 [Rx Last Taken Unknown] losartan 50 mg tablet 50 mg PO DAILY 12/21/19 [History Last Taken 01/18/20 07:15] atorvastatin 80 mg tablet 80 mg PO QHS #30 tabs 08/27/21 [History Last Taken Unknown] warfarin 5 mg tablet 5 mg PO SUTUTH #30 tabs 08/27/21 [History Last Taken Unknown] amlodipine 5 mg tablet 5 mg PO DAILY blood pressure 01/21/22 [History Last Taken 01/20/22] atorvastatin 80 mg tablet 80 mg PO SUTUTHSA CHOLESTEROL 01/21/22 [History Last Taken 01/19/22] warfarin 5 mg tablet 2.5 mg PO MOWEFRSA BLOOD THINNER 01/21/22 [History Last Taken 01/20/22] Allergy/AdvReac Type Severity Reaction Status Date / Time No Known Allergies Allergy Verified 08/27/21 11:34 Family History Father AAA (abdominal aortic aneurysm, ruptured), Onset Age: 89 Mother Myocardial infarction Sudden cardiac , Onset Age: 80 Brother Hypertension Surgical History History of appendectomy History of coronary artery bypass surgery (~10/31/16) History of shoulder surgery History of tonsillectomy Hx of angioplasty Hx of colonoscopy Presence of implantable cardioverter-defibrillator (ICD) (~04/14/19) Social History Smoking Status: Former smoker how long ago did patient quit smokin alcohol intake: never substance use type: does not use caffeine: Yes Type: coffee Number of servings: 1 what type of physical activity do you participate in: none frequency: does not exercise ROS ROS Narrative GENERAL: denies fever, chills, night sweats, weight loss, anorexia HEENT: denies headache, sinus congestion, or drainage, dysphagia RESPIRATORY: denies cough, sputum production, shortness of breath, CARDIAC: denies chest pain, palpitations, orthopnea, PND GASTROINTESTINAL: denies abdominal pain, nausea, vomiting, melena, GENITOURINARY: denies dysuria, urgency, frequency, heamaturia EXTREMITY: denies swelling MUSCULOSKELETAL: denies current joint pain or tenderness NEUROLOGIC: denies focal numbness, weakness, tingling HEMATOLOGIC: denies easy bruising and/or hemorrhage INTEGUMENT: denies rashes PSYCHIATRIC: denies suicidal or homicidal ideation Vital Signs Vital Signs Vital Signs: 01/21/22 09:00 01/21/22 09:03 01/21/22 10:33 Temperature 97.8 F Temperature Source Temporal Pulse Rate 71 Pulse Rate [Lying] 71 Pulse Rate [Sitting (for 1 minute prior to obtaining)] 77 Pulse Rate [Standing (for 1 minute prior to obtaining)] 90 Respiratory Rate 16 Respiratory Effort Normal Blood Pressure 159/89 H Blood Pressure [Lying] 159/8 H Blood Pressure [Sitting (for 1 minute prior to obtaining)] 113/99 H Blood Pressure [Standing (for 1 minute prior to obtaining)] 162/95 H Blood Pressure Mean 112 Blood Pressure Mean [Lying] 58 Blood Pressure Mean [Sitting (for 1 minute prior to obtaining)] 103 Blood Pressure Mean [Standing (for 1 minute prior to obtaining)] 117 Pulse Ox 95 Oxygen Delivery Method Nasal Cannula Weight Weight: 97.8 kg Body Mass Index (BMI) 29.2 Physical Exam Narrative GENERAL: cooperative HEENT: Laceration above the left eyelid EYES; Anicteric, Normal Conjunctiva NECK; supple, normal thyroid, RESPIRATORY: Diminished to auscultation CARDIOVASCULAR: Regular S1 S2, GI: soft, normoactive bowel sounds, : No Renal angle tenderness; EXTREMITIES: No edema, no clubbing, MUSCULOSKELETAL: no muscle wasting NEURO: Awake; no lateralizing signs. SKIN: No Rash PSYCH; Flat affect Results Lab / Micro Data Result Diagrams: 01/21/22 09:50 01/21/22 09:50 Labs: Laboratory Results - last 24 hr 01/21/22 09:50: WBC 7.2, RBC 5.23, Hgb 15.9, Hct 48.4, MCV 92.5, MCH 30.4, MCHC 32.9, RDW Std Deviation 46.6 H, RDW Coeff of Jil 13.7, Plt Count 131 L, MPV 11.2, Immature Gran % (Auto) 0.600, Neut % (Auto) 67.2, Lymph % (Auto) 12.0 L, [place] % (Auto) 19.8 H, Eos % (Auto) 0.1, Baso % (Auto) 0.3, Absolute Neuts (auto) 4.9, Absolute Lymphs (auto) 0.87, Nucleated RBC % 0 01/21/22 09:50: PT 20.1 H, INR 1.8, APTT 39.9 H 01/21/22 09:50: Sodium 141, Potassium 3.9, Chloride 106, Carbon Dioxide 28.0, Anion Gap 7, BUN 17, Creatinine 1.07, Estim Creat Clear Calc 64.47, Est GFR (MDRD) Af Amer 86, Est GFR (MDRD) Non-Af 71, BUN/Creatinine Ratio 15.9, Glucose 94, Calcium 8.2 L, Total Bilirubin 1.40 H, AST 52 H, ALT 43, Alkaline Phosphatase 87, Troponin I High Sens 12, Total Protein 6.9, Albumin 3.4, Globulin 3.5, Albumin/Globulin Ratio 1.0, Lipase 83 01/21/22 11:13: Urine Color Yellow, Urine Clarity Clear, Urine pH 5.0, Ur Specific [place] 1.025, Urine Protein 30 H, Urine Glucose (UA) Normal, Urine Ketones 50 H, Urine Occult Blood 50 H, Urine Nitrite Negative, Urine Bilirubin Negative, Urine Urobilinogen Normal, Ur Leukocyte Esterase Negative, Urine RBC 0-5 SEEN, Urine WBC 0 SEEN, Ur Squamous Epith Cells 0 SEEN, Urine Bacteria 0 SEEN, Urine Mucus 0 SEEN Radiology Impression Brain CT 01/21/22 09:36 IMPRESSION: Chronic involutional changes of the brain. Electronically Signed: Garcia Newman MD at 11:00 EST , Thoracic Spine CT 01/21/22 09:36 IMPRESSION: Multilevel disc space narrowing and mild spondylosis. Electronically Signed: Garcia Newman MD at 11:02 EST , Assessment & Plan Assessment/Plan (1) Frequent falls: (2) Back contusion: PLAN: Plan Patient is 76-year-old gentleman presented with frequent falls 1. Frequent falls ? Patient has undergone extensive work-up as outpatient without any identifiable cause. Has been admitted to regular nursing floor requested for PT OT eval and director of social media marketing to assist with discharge planning. Patient also complains of significant pain plan is to treat symptomatically 2. Coronary artery disease ? Status post CABG 3. Ischemic cardiomyopathy ? Status post AICD placement 4. History of ventricular apical thrombus ? Patient is on systemic anticoagulation with Coumadin INR was slightly subtherapeutic on admission plan is to resume home dose and monitor with daily PT and INR 5. Dyslipidemia -Patient is on statin therapy, continued at home dose 6. Hypertension - Blood pressure controlled, home medications continued with dose adjustment as needed 7. DVT prophylaxis ? Patient is on Coumadin no need for additional measures Advance planning; did discuss with the patient and family regarding advanced directives as well as CODE STATUS. Did explain the various scenarios involved ( FULL CODE, DNR CCA, DNR CCA with no intubation, and DNR CC and what each meant) patient elected full code with CPR and intubation if warranted. Order was placed. Time spent on discussion 18 minutes. Charges/Coding Visit Charges OBSV E&M: 27989 Initial observation care L3 Procedures Hospitalists Procedures: 26713 Advncd Care Plan 30 Min
[2022-01-21] MEDS: oxyCODONE 5 MG Tablet PO (13:41)
[2022-01-21] MEDS: Acetaminophen 500 MG Tablet 1000 MG PO ×2 (13:41→20:56)
[2022-01-21] MEDS: Lidocaine 5% Patch 1 PATCH TOPICAL (13:41)
[2022-01-21] MEDS: Senna/Docusate Sodium 1 Tablet 2 TABLET PO (13:41)
[2022-01-21] MEDS: Gabapentin 100 MG Capsule PO (17:10)
[2022-01-21] MEDS: BENZOCAINE/MENTHOL 1 LOZENGE MUCOUS MEM (17:16)
[2022-01-21] MEDS: Metoprolol Tartrate 25 MG Tablet 12.5 MG PO (20:55)
[2022-01-21] MEDS: Saliva Substitute 237 ML BOTTLE 15 ML MUCOUS MEM (21:50)
[2022-01-22] VITALS (8 sets, daily range): BP systolic 125–142; BP diastolic 61–80; PULSE 65–78; RESP 18; TEMP 36.8–37.3; O2SAT 96–98
[2022-01-22] MEDS: BENZOCAINE/MENTHOL 1 LOZENGE MUCOUS MEM ×3 (04:20→22:50)
[2022-01-22] MEDS: Acetaminophen 500 MG Tablet 1000 MG PO ×3 (06:47→22:47)
[2022-01-22 07:13] LABS: Absolute Lymphocyte Count 0.91 X10^3/uL (0.83-4.51); Absolute Neutrophil Count 4.1 X10^3/uL (2.0-7.7); Basophil# 0.03 X10^3/uL; Basophil% 0.5 % (0-1); Eosinophil# 0.01 X10^3/uL; Eosinophils% 0.2 % (0-5); Hematocrit 47.4 % (40-54); Hemoglobin 15.5 g/dL (13.0-16.5); Lymphocyte # 0.91 X10^3/ul (0.83-4.51); Lymphocyte % 15.4 % (19-41); Mean Corp Hgb Conc 32.7 g/dL (32-36); Mean Corpuscular Hgb 29.9 pg (27.0-32.0); Mean Corpuscular Volume 91.5 fL (80-94); Mean Platelet Vol. 11.1 fl (6.2-12.0); Monocyte# 0.82 X10^3/uL; Monocyte% 13.9 % (0-10); NRBC Flagged by Analyzer 0 % (0-5); Neutrophil # 4.12 X10^3/uL (2.7-7.7); Neutrophil % 69.7 % (47-70); Platelet Count 127 K/mm3 (150-450); RBC Distribution Width CV 13.5 % (11.6-14.6); RBC Distribution Width SD 46.4 fl (35.1-43.9); Red Blood Count 5.18 M/mm3 (4.6-6.2); White Blood Count 5.9 K/mm3 (4.4-11.0)
--- NOTE | 2022-01-22 07:33 | PN.HOSP_ITS ---
Subjective Subjective Patient did develop sore throat the day prior his COVID assay ordered came back positive Objective Data Objective Data Vital Signs: Vital Signs Temp Pulse Resp BP Pulse Ox O2 Del Method 98.4 F 71 18 142/80 H 96 Room Air 01/22/22 03:00 01/22/22 03:00 01/22/22 03:00 01/22/22 03:00 01/22/22 03:00 01/22/22 07:20 Oxygen Delivery Method Room Air Weight: 103.1 kg Body Mass Index (BMI) 30.8 Intake & Output: Intake and Output for Last 24 Hours 01/20/22 01/21/22 01/22/22 23:59 23:59 23:59 Intake Total 450 / 450 Output Total 450 / 450 Balance 0 / 0 Lab / Micro Data Result Diagrams: 01/22/22 07:00 01/22/22 07:00 Labs: Laboratory Results - last 24 hr 01/21/22 09:50: WBC 7.2, RBC 5.23, Hgb 15.9, Hct 48.4, MCV 92.5, MCH 30.4, MCHC 32.9, RDW Std Deviation 46.6 H, RDW Coeff of Jil 13.7, Plt Count 131 L, MPV 11.2, Immature Gran % (Auto) 0.600, Neut % (Auto) 67.2, Lymph % (Auto) 12.0 L, [place] % (Auto) 19.8 H, Eos % (Auto) 0.1, Baso % (Auto) 0.3, Absolute Neuts (auto) 4.9, Absolute Lymphs (auto) 0.87, Nucleated RBC % 0 01/21/22 09:50: PT 20.1 H, INR 1.8, APTT 39.9 H 01/21/22 09:50: Sodium 141, Potassium 3.9, Chloride 106, Carbon Dioxide 28.0, Anion Gap 7, BUN 17, Creatinine 1.07, Estim Creat Clear Calc 64.47, Est GFR (MDRD) Af Amer 86, Est GFR (MDRD) Non-Af 71, BUN/Creatinine Ratio 15.9, Glucose 94, Calcium 8.2 L, Total Bilirubin 1.40 H, AST 52 H, ALT 43, Alkaline Phosphatase 87, Troponin I High Sens 12, Total Protein 6.9, Albumin 3.4, Globulin 3.5, Albumin/Globulin Ratio 1.0, Lipase 83 01/21/22 11:13: Urine Color Yellow, Urine Clarity Clear, Urine pH 5.0, Ur Specific [place] 1.025, Urine Protein 30 H, Urine Glucose (UA) Normal, Urine Ketones 50 H, Urine Occult Blood 50 H, Urine Nitrite Negative, Urine Bilirubin Negative, Urine Urobilinogen Normal, Ur Leukocyte Esterase Negative, Urine RBC 0-5 SEEN, Urine WBC 0 SEEN, Ur Squamous Epith Cells 0 SEEN, Urine Bacteria 0 SEEN, Urine Mucus 0 SEEN 01/21/22 15:45: COVID-19 ([facility]) Detected 01/22/22 07:00: WBC 5.9, RBC 5.18, Hgb 15.5, Hct 47.4, MCV 91.5, MCH 29.9, MCHC 32.7, RDW Std Deviation 46.4 H, RDW Coeff of Jil 13.5, Plt Count 127 L, MPV 11.1, Immature Gran % (Auto) 0.300, Neut % (Auto) 69.7, Lymph % (Auto) 15.4 L, [place] % (Auto) 13.9 H, Eos % (Auto) 0.2, Baso % (Auto) 0.5, Absolute Neuts (auto) 4.1, Absolute Lymphs (auto) 0.91, Nucleated RBC % 0 01/22/22 07:00: PT 22.0 H, INR 2.0 Micro: Microbiology 01/21/22 15:45 Mucosa - Nasopharyngeal Respiratory Panel (PCR) - Final Radiography Diagnostic Testing: Radiology Impression Brain CT 01/21/22 09:36 IMPRESSION: Chronic involutional changes of the brain. Electronically Signed: Garcia Newman MD at 11:00 EST , Thoracic Spine CT 01/21/22 09:36 IMPRESSION: Multilevel disc space narrowing and mild spondylosis. Electronically Signed: Garcia Newman MD at 11:02 EST , Physical Exam Narrative GENERAL: cooperative HEENT: Laceration above the left eyelid EYES; Anicteric, Normal Conjunctiva NECK; supple, normal thyroid, RESPIRATORY: Diminished to auscultation CARDIOVASCULAR: Regular S1 S2, GI: soft, normoactive bowel sounds, : No Renal angle tenderness; EXTREMITIES: No edema, no clubbing, MUSCULOSKELETAL: no muscle wasting NEURO: Awake; no lateralizing signs. SKIN: No Rash PSYCH; Flat affect Assessment & Plan Assessment/Plan (1) Frequent falls: (2) Back contusion: PLAN: Plan Patient is 76-year-old gentleman presented with frequent falls 1. Frequent falls ? Patient has undergone extensive work-up as outpatient without any identifiable cause. Has been admitted to regular nursing floor requested for PT OT eval and social media strategist to assist with discharge planning. Patient also complains of significant pain plan is to treat symptomatically ? 01/22/2022; awaiting PT OT eval and recommendation 2. Coronary artery disease ? Status post CABG 3. Ischemic cardiomyopathy ? Status post AICD placement 4. History of ventricular apical thrombus ? Patient is on systemic anticoagulation with Coumadin INR was slightly subtherapeutic on admission plan is to resume home dose and monitor with daily PT and INR 5. Dyslipidemia -Patient is on statin therapy, continued at home dose 6. Hypertension - Blood pressure controlled, home medications continued with dose adjustment as needed 7. DVT prophylaxis ? Patient is on Coumadin no need for additional measures 8. Acute COVID infection ? Patient being treated symptomatically currently not requiring oxygen Charges/Coding Visit Charges OBSV E&M: 14837 Initial observation care L2
[2022-01-22 07:39] LABS: Anion Gap 5 (5-15); BUN 16 mg/dL (7-18); BUN/Creat Ratio 17.6 RATIO (10-20); Calcium,Total 8.2 mg/dL (8.5-10.1); Chloride 109 mmol/L (98-107); Creatinine, Serum 0.91 mg/dL (0.70-1.30); EST Glomerular Filtration Rate 86 mL/min (>60); Est Glom Filt Rate - Afr Amer 104 mL/min (>60); Glucose 107 mg/dL (74-106); Magnesium 2.3 mg/dL (1.6-2.6); Phosphorus 2.3 mg/dL (2.5-4.9); Potassium 3.4 mmol/L (3.5-5.1); Sodium Level 141 mmol/L (136-145)
[2022-01-22] MEDS: amLODIPine 5 MG Tablet PO (09:19)
[2022-01-22] MEDS: Losartan Potassium 50 MG Tablet PO (09:20)
[2022-01-22] MEDS: Aspirin E.C. 81 MG Tablet PO (09:20)
[2022-01-22] MEDS: Gabapentin 100 MG Capsule PO ×3 (09:20→17:14)
[2022-01-22] MEDS: Saliva Substitute 237 ML BOTTLE 15 ML MUCOUS MEM (09:20)
[2022-01-22] MEDS: Lidocaine 5% Patch 1 PATCH TOPICAL (09:20)
[2022-01-22] MEDS: Benzonatate 100 MG Capsule PO ×2 (09:20→17:15)
[2022-01-22] MEDS: Metoprolol Tartrate 25 MG Tablet 12.5 MG PO ×2 (09:20→22:47)
[2022-01-22] MEDS: Atorvastatin Calcium 40 MG Tablet PO (09:26)
--- NOTE | 2022-01-22 11:54 | CASEMGMT ---
Addendum entered by Dana Daly 01/22/22 14:48: Pt's Nurse, Nenita reported to SW that pt choice is [facility] but that pt would like SW to call , Aure to discuss [facility] as alternative option. SW called . expressed concerns for all SNF choices. Aure upset pt needing to go to SNF. SW explained pt weakness and the recommendation of SNF, and level of care pt will need. stating not able to do high level of care at home by self and then stated [facility] is ok as first choice. stated [facility] is an absolute no. Adalgisa Bustillo discharge hygiene assistant made aware of pt choice. Adalgisa to send referral. PLAN: [facility], pending acceptance and precert. AUGUST De La Cruz Original Note: Social Work SW in to meet with pt following update from Dr. Wilkerson that pt will need placement at nursing facility. SW?introduced self and role at the hospital. Pt agreeable to discussing discharge planning. A list of SNF providers including quality and resource use data and consistent with the patient?s preferred geographic region, medical needs, and insurance network were provided from the [facility] Guide. Pt reviewed list but asked if an answer can be given later this day as pt upset with limited options and does not want to go to SNF. Abilio encouraged pt to discuss with , Aure.??Pt agreeable but stated Its going to take a long time for me to figure this out. ABILIO explained the insurance auth process can take several days sometimes. Pt appeared not to care and stated I'll take my time. ABILIO discussed intent to follow up with pt later today. PLAN: SNF- pending patient choice ? AUGUST De La Cruz
[2022-01-22] MEDS: BMX LIQUID 180 ML 15 ML PO (12:48)
--- NOTE | 2022-01-22 13:55 | CASEMGMT ---
TC to pt room to discuss [employer]OW[employer]URY form with patient. RN CM explained CHOW[place]URY form, patient voiced understanding. Pt gave verbal consent for signature on form and filed in chart. Witnessed by second person as well. Pt provided with a copy of signed CHOWDHURY form. Patient had no further questions or concerns at this time.
--- NOTE | 2022-01-22 14:45 | CASEMGMT ---
Discharge Bull Bucker This bond underwriter sent referral to CC via [facility]. Thi GEORGE Logistics Management Specialist
--- NOTE | 2022-01-22 14:54 | CASEMGMT ---
Social Work? SW in to pt room to verify Advanced Directives. Pt confirmed has HCPOA. Pt named spouse,?Aure , as agent. Pt made aware these documents are not on file and that pt can bring a copy in and drop off at Medical records in future if willing to do so. Pt voiced understanding.?? AUGUST De La Cruz?
--- NOTE | 2022-01-22 14:59 | CASEMGMT ---
Discharge Director Cardiovascular [facility] accept patient. [facility] is checking insurance. ABILIO Cortez notified. Thi GEORGE Clothes Model
--- NOTE | 2022-01-22 15:16 | CASEMGMT ---
Social Work SW notified pt of acceptance at [facility]. SW also spoke to pt again via phone and explained that pt was accepted. , Aure, stated intent to visit [facility] and [facility] this evening to decide which one would be best. This SW informed Aure that pt has been accepted and insurance auth would be in process soon, if not already. Aure then asked about pt transferring if [facility] turns out to not be what family is wanting. SW explained this is allowable and that family would just have to collaborate with Social Workers at each facility to coordinate a transfer. Aure voiced understanding. PLAN: [facility], pending precert. AUGUST De La Cruz
[2022-01-22] MEDS: 0.9% Saline Lock 10 ML Syringe IV (22:46)
[2022-01-23] VITALS (7 sets, daily range): BP systolic 143–147; BP diastolic 57–77; PULSE 64–73; RESP 18; TEMP 36.7–37.1; O2SAT 95–98
[2022-01-23] MEDS: Acetaminophen 500 MG Tablet 1000 MG PO ×2 (05:50→14:22)
[2022-01-23] MEDS: BENZOCAINE/MENTHOL 1 LOZENGE MUCOUS MEM (05:51)
[2022-01-23 06:39] LABS: Absolute Lymphocyte Count 1.23 X10^3/uL (0.83-4.51); Absolute Neutrophil Count 2.2 X10^3/uL (2.0-7.7); Basophil# 0.02 X10^3/uL; Basophil% 0.5 % (0-1); Eosinophil# 0.03 X10^3/uL; Eosinophils% 0.7 % (0-5); Hematocrit 44.8 % (40-54); Lymphocyte # 1.23 X10^3/ul (0.83-4.51); Lymphocyte % 29.7 % (19-41); Mean Corp Hgb Conc 33.5 g/dL (32-36); Mean Corpuscular Hgb 30.5 pg (27.0-32.0); Mean Corpuscular Volume 91.2 fL (80-94); Mean Platelet Vol. 11.5 fl (6.2-12.0); Monocyte# 0.61 X10^3/uL; Monocyte% 14.7 % (0-10); NRBC Flagged by Analyzer 0 % (0-5); Neutrophil # 2.24 X10^3/uL (2.7-7.7); Neutrophil % 54.2 % (47-70); Platelet Count 130 K/mm3 (150-450); RBC Distribution Width CV 13.3 % (11.6-14.6); RBC Distribution Width SD 45.1 fl (35.1-43.9); Red Blood Count 4.91 M/mm3 (4.6-6.2); White Blood Count 4.1 K/mm3 (4.4-11.0)
[2022-01-23 06:53] LABS: International Normalized Ratio 2.5; Prothrombin Time (Protime)PT. 26.3 SECONDS (11.7-14.9)
[2022-01-23 07:11] LABS: BUN 17 mg/dL (7-18); Creatinine, Serum 0.86 mg/dL (0.70-1.30); Estimated Creatinine Clearance 80.21 ml/min; Glucose 100 mg/dL (74-106)
[2022-01-23 07:12] LABS: Anion Gap 6 (5-15); BUN/Creat Ratio 19.7 RATIO (10-20); Calcium,Total 7.7 mg/dL (8.5-10.1); Chloride 107 mmol/L (98-107); EST Glomerular Filtration Rate 91 mL/min (>60); Est Glom Filt Rate - Afr Amer 110 mL/min (>60); Potassium 3.4 mmol/L (3.5-5.1); Sodium Level 139 mmol/L (136-145)
--- NOTE | 2022-01-23 07:27 | PN.HOSP_ITS ---
Subjective Subjective Patient seen [facility] Objective Data Objective Data Vital Signs: Vital Signs Temp Pulse Resp BP Pulse Ox O2 Del Method 98.8 F 64 18 145/64 H 97 Room Air 01/23/22 05:47 01/23/22 05:47 01/23/22 05:47 01/23/22 05:47 01/23/22 05:47 01/23/22 05:50 Oxygen Delivery Method Room Air Weight: 103.1 kg Body Mass Index (BMI) 30.8 Intake & Output: Intake and Output for Last 24 Hours 01/21/22 01/22/22 01/23/22 23:59 23:59 23:59 Intake Total 1230 / 1230 200 / 200 Output Total 1200 / 1200 300 / 300 Balance -100 / -100 Lab / Micro Data Result Diagrams: 01/23/22 06:20 01/23/22 06:20 Labs: Laboratory Results - last 24 hr 01/22/22 07:00: Sodium 141, Potassium 3.4 L, Chloride 109 H, Carbon Dioxide 27.0, Anion Gap 5, BUN 16, Creatinine 0.91, Estim Creat Clear Calc 75.80, Est GFR (MDRD) Af Amer 104, Est GFR (MDRD) Non-Af 86, BUN/Creatinine Ratio 17.6, Glucose 107 H, Calcium 8.2 L, Phosphorus 2.3 L, Magnesium 2.3 01/23/22 06:20: WBC 4.1 L, RBC 4.91, Hgb 15.0, Hct 44.8, MCV 91.2, MCH 30.5, MCHC 33.5, RDW Std Deviation 45.1 H, RDW Coeff of Jil 13.3, Plt Count 130 L, MPV 11.5, Immature Gran % (Auto) 0.200, Neut % (Auto) 54.2, Lymph % (Auto) 29.7, [place] % (Auto) 14.7 H, Eos % (Auto) 0.7, Baso % (Auto) 0.5, Absolute Neuts (auto) 2.2, Absolute Lymphs (auto) 1.23, Nucleated RBC % 0 01/23/22 06:20: Sodium 139, Potassium 3.4 L, Chloride 107, Carbon Dioxide 26.0, Anion Gap 6, BUN 17, Creatinine 0.86, Estim Creat Clear Calc 80.21, Est GFR (MDRD) Af Amer 110, Est GFR (MDRD) Non-Af 91, BUN/Creatinine Ratio 19.7, Glucose 100, Calcium 7.7 L 01/23/22 06:20: PT 26.3 H, INR 2.5 Micro: Microbiology 01/21/22 15:45 Mucosa - Nasopharyngeal Respiratory Panel (PCR) - Final Physical Exam Narrative GENERAL: cooperative HEENT: Laceration above the left eyelid EYES; Anicteric, Normal Conjunctiva NECK; supple, normal thyroid, RESPIRATORY: Diminished to auscultation CARDIOVASCULAR: Regular S1 S2, GI: soft, normoactive bowel sounds, : No Renal angle tenderness; EXTREMITIES: No edema, no clubbing, MUSCULOSKELETAL: no muscle wasting NEURO: Awake; no lateralizing signs. SKIN: No Rash PSYCH; Flat affect Assessment & Plan Assessment/Plan (1) Frequent falls: (2) Back contusion: PLAN: Plan Patient is 76-year-old gentleman presented with frequent falls 1. Frequent falls ? Patient has undergone extensive work-up as outpatient without any identifiable cause. Has been admitted to regular nursing floor requested for PT OT eval and child protective services social worker to assist with discharge planning. Patient also complains of significant pain plan is to treat symptomatically ? 01/22/2022; awaiting PT OT eval and recommendation ? 01/23/2022 transfer to a pen[facility]iary facility pending 2. Coronary artery disease ? Status post CABG 3. Ischemic cardiomyopathy ? Status post AICD placement 4. History of ventricular apical thrombus ? Patient is on systemic anticoagulation with Coumadin INR was slightly subtherapeutic on admission plan is to resume home dose and monitor with daily PT and INR 5. Dyslipidemia -Patient is on statin therapy, continued at home dose 6. Hypertension - Blood pressure controlled, home medications continued with dose adjustment as needed 7. DVT prophylaxis ? Patient is on Coumadin no need for additional measures 8. Acute COVID infection ? Patient being treated symptomatically currently not requiring oxygen Charges/Coding Visit Charges OBSV E&M: 66647 Initial observation care L2
--- NOTE | 2022-01-23 09:27 | CASEMGMT ---
Addendum entered by Skylar Cazares 01/23/22 15:41: Social Work Pt is ready for discharge. SW met with pt and informed that [facility] is able to accept him and physician feels pt is ready today. Pt is agreeable to discharge to [facility] today. PASRR completed in [place] and sent along with discharge orders to [facility] via the [employer] system. Transportation arranged with [facility] for 4:30 pickup via [facility]. Phone call to pt Aure and updated on discharge plan. Aure agreeable to plan. Nursing and CC updated on d/c time. Disposition: [facility], skilled level of care AUGUST Moore Original Note: Social Work SW spoke with [employer] at [facility] who states she has spoke with their business office and confirmed that pt has Medicare A primary and [employer] secondary. Pt will not be precert for admission and can be admitted today. Physician updated. VM left for pt asking to return call to confirm discharge plan. Plan: [facility], when medically ready AUGUST Rich
[2022-01-23] MEDS: Atorvastatin Calcium 80 MG Tablet PO (10:03)
[2022-01-23] MEDS: Aspirin E.C. 81 MG Tablet PO (10:03)
[2022-01-23] MEDS: Losartan Potassium 50 MG Tablet PO (10:03)
[2022-01-23] MEDS: Gabapentin 100 MG Capsule PO ×2 (10:04→14:22)
[2022-01-23] MEDS: amLODIPine 5 MG Tablet PO (10:04)
[2022-01-23] MEDS: Potassium Chloride Oral Tablet 20 MEQ PO (10:04)
[2022-01-23] MEDS: Metoprolol Tartrate 25 MG Tablet 12.5 MG PO (10:04)
[2022-01-23] MEDS: Lidocaine 5% Patch 1 PATCH TOPICAL (10:05)
--- NOTE | 2022-01-23 14:03 | TREXTCAR_ITS ---
Diet Diet Order/Speech Therapy: 01/21/22 13:00 Diet: Regular - General Food consistency:: Regular Liquid Consistency:: Regular/Thin Routine Orders/Code Status Routine Lab Work: CBC (On 01/27/2022), BMP (On 01/27/2022) and INR (On 01/27/2022) Code Status: Full Code Wound(s) left knee: Wound Type: Abrasion right knee: Wound Type: Abrasion Problem/Diagnosis (1) Frequent falls: Status: Acute Code(s): R29.6 - Repeated falls (2) Back contusion: Status: Acute Code(s): S20.229A - Contusion of unspecified back wall of thorax, initial encounter Plan Patient is 76-year-old gentleman presented with frequent falls 1. Frequent falls ? Patient has undergone extensive work-up as outpatient without any identifiable cause. Has been admitted to regular nursing floor requested for PT OT eval and health and social care teacher to assist with discharge planning. Patient also complains of significant pain plan is to treat symptomatically ? 01/22/2022; awaiting PT OT eval and recommendation ? 01/23/2022 [facility] pending 2. Coronary artery disease ? Status post CABG 3. Ischemic cardiomyopathy ? Status post AICD placement 4. History of ventricular apical thrombus ? Patient is on systemic anticoagulation with Coumadin INR was slightly subtherapeutic on admission plan is to resume home dose and monitor with daily PT and INR 5. Dyslipidemia -Patient is on statin therapy, continued at home dose 6. Hypertension - Blood pressure controlled, home medications continued with dose adjustment as needed 7. DVT prophylaxis ? Patient is on Coumadin no need for additional measures 8. Acute COVID infection ? Patient being treated symptomatically currently not requiring oxygen Allergies/Procedures Done in Hospital Allergies No Known Allergies Allergy (Verified 08/27/21 11:34) Type of Care/Length of Stay Estimated LOS: Convalescent Care Less Than 30 days Type of Care Needed: Skilled Rehab Potential: Good Prognosis: Good Additional Orders/Day of Discharge Day of Discharge: 01/23/22 Discharge Plan Admission Admit Date/Time: 01/21/22 12:00 Attending Provider: Ollie Wilkerson Primary Care Provider: Jordy Saucedo Discharge Orders/Prescriptions Prescriptions: New [place] Sea Nasal 0.65 % Aerosol,[place] 2 spray NASAL Q4H PRN PRN (Reason: NASAL DRYNESS) Qty: 0 0RF sennosides-docusate sodium [Stool Softener-Stimulant Laxat] 8.6-50 mg Tablet 2 tab PO BID PRN PRN (Reason: Constipation) Qty: 0 0RF potassium chloride [Klor-Con M20] 20 mEq Tablet,Er Particles/Crystals 20 meq PO BIDCM Qty: 0 0RF lidocaine 5 % Adhesive Patch,Medicated 1 patch topical DAILY Qty: 0 0RF Protocol: *Topical Application Instructions APPLICATION INSTRUCTIONS: 12 hours on 12 hours off Continued aspirin [Adult Aspirin Regimen] 81 mg tablet,delayed release (DR/EC) 81 mg PO DAILY metoprolol tartrate 25 mg tablet 12.5 mg PO BID Qty: 60 atorvastatin 80 mg tablet 40 mg PO MOWEFR Qty: 30 warfarin 5 mg tablet 5 mg PO SUTUTH Qty: 30 nitroglycerin 0.4 mg tablet, sublingual 0.4 mg SUBLINGUAL Q5-15M PRN (Reason: chest pain) Qty: 25 1RF losartan 50 mg tablet 50 mg PO DAILY atorvastatin 80 mg tablet 80 mg PO SUTUTHSA amlodipine 5 mg tablet 5 mg PO DAILY warfarin 5 mg tablet 2.5 mg PO MOWEFRSA Referrals / Follow Up: Jordy Saucedo MD [Primary Care Provider] - Within 2 Weeks Disposition Disposition (needs filled in before D/C Order can be placed): Detention Facility
--- NOTE | 2022-01-23 14:11 | PCM.DC.SUM ---
Providers Date of Admission: 01/21/22 Date of Discharge: 01/23/22 Primary Care Physician: Dr. Jordy Saucedo MD Reason For Visit: GENERALIZED WEAKNESS Diagnosis Discharge Diagnosis (1) Frequent falls: Status: Acute Code(s): R29.6 - Repeated falls (2) Back contusion: Status: Acute Code(s): S20.229A - Contusion of unspecified back wall of thorax, initial encounter Plan Patient is 76-year-old gentleman presented with frequent falls 1. Frequent falls ? Patient has undergone extensive work-up as outpatient without any identifiable cause. Has been admitted to regular nursing floor requested for PT OT eval and social organization professor to assist with discharge planning. Patient also complains of significant pain plan is to treat symptomatically ? 01/22/2022; awaiting PT OT eval and recommendation ? 01/23/2022 transfer to a intermediate facility pending 2. Coronary artery disease ? Status post CABG 3. Ischemic cardiomyopathy ? Status post AICD placement 4. History of ventricular apical thrombus ? Patient is on systemic anticoagulation with Coumadin INR was slightly subtherapeutic on admission plan is to resume home dose and monitor with daily PT and INR 5. Dyslipidemia -Patient is on statin therapy, continued at home dose 6. Hypertension - Blood pressure controlled, home medications continued with dose adjustment as needed 7. DVT prophylaxis ? Patient is on Coumadin no need for additional measures 8. Acute COVID infection ? Patient being treated symptomatically currently not requiring oxygen Medications at Discharge Home Medications aspirin 81 mg tablet,delayed release (Adult Aspirin Regimen) 81 mg PO DAILY [facility] 10/25/18 metoprolol tartrate 25 mg tablet 12.5 mg PO BID BLOOD PRESSURE #60 tabs 02/22/19 nitroglycerin 0.4 mg sublingual tablet 0.4 mg sublingual Q5-15M PRN chest pain #25 tabs 02/24/19 losartan 50 mg tablet 50 mg PO DAILY BLOOD PRESSURE 12/21/19 atorvastatin 80 mg tablet 40 mg PO MOWEFR cholesterol #30 tabs 08/27/21 warfarin 5 mg tablet 5 mg PO SUTUTH BLOOD THINNER #30 tabs 08/27/21 amlodipine 5 mg tablet 5 mg PO DAILY blood pressure 01/21/22 atorvastatin 80 mg tablet 80 mg PO SUTUTHSA CHOLESTEROL 01/21/22 warfarin 5 mg tablet 2.5 mg PO MOWEFRSA BLOOD THINNER 01/21/22 lidocaine 5 % topical patch 1 patch topical DAILY #0 ea 01/23/22 potassium chloride 20 mEq tablet,extended release(part/cryst) (Klor-Con M) 20 meq PO BIDCM #0 tabs 01/23/22 sennosides 8.6 mg-docusate sodium 50 mg tablet (Stool Softener-Stimulant Laxative) 2 tab PO BID PRN PRN Constipation #0 tabs 01/23/22 sodium chloride 0.65 % nasal spray aerosol (Deep Sea Nasal) 2 spray NASAL Q4H PRN PRN NASAL DRYNESS #0 mL 01/23/22 Hospital Course Summary of Care Provided Minutes Spent on Discharge: 35 Physical Exam Narrative GENERAL: cooperative HEENT: Laceration above the left eyelid EYES; Anicteric, Normal Conjunctiva NECK; supple, normal thyroid, RESPIRATORY: Diminished to auscultation CARDIOVASCULAR: Regular S1 S2, GI: soft, normoactive bowel sounds, : No Renal angle tenderness; EXTREMITIES: No edema, no clubbing, MUSCULOSKELETAL: no muscle wasting NEURO: Awake; no lateralizing signs. SKIN: No Rash PSYCH; Flat affect Weight / BMI Weight Weight: 103.1 kg Body Mass Index (BMI) 30.8 ABG / Lab / Microbiology Data Result Diagrams: 01/23/22 06:20 01/23/22 06:20 Laboratory: Laboratory Results - last 24 hr 01/23/22 06:20: WBC 4.1 L, RBC 4.91, Hgb 15.0, Hct 44.8, MCV 91.2, MCH 30.5, MCHC 33.5, RDW Std Deviation 45.1 H, RDW Coeff of Jil 13.3, Plt Count 130 L, MPV 11.5, Immature Gran % (Auto) 0.200, Neut % (Auto) 54.2, Lymph % (Auto) 29.7, [place] % (Auto) 14.7 H, Eos % (Auto) 0.7, Baso % (Auto) 0.5, Absolute Neuts (auto) 2.2, Absolute Lymphs (auto) 1.23, Nucleated RBC % 0 01/23/22 06:20: Sodium 139, Potassium 3.4 L, Chloride 107, Carbon Dioxide 26.0, Anion Gap 6, BUN 17, Creatinine 0.86, Estim Creat Clear Calc 80.21, Est GFR (MDRD) Af Amer 110, Est GFR (MDRD) Non-Af 91, BUN/Creatinine Ratio 19.7, Glucose 100, Calcium 7.7 L 01/23/22 06:20: PT 26.3 H, INR 2.5 Microbiology: Microbiology 01/21/22 15:45 Mucosa - Nasopharyngeal Respiratory Panel (PCR) - Final D/C Instructions Discharge Diet: No restrictions Discharge Activity: Return to Normal Activity Call your doctor if you observe: Fever of 101 or Higher, Shortness of breath, Fainting spells and Chest pain Meaningful Use Info Meaningful Use Diagnoses (Choose all that apply): None applicable Discharge Plan Admission Admit Date/Time: 01/21/22 12:00 Attending Provider: Ollie Wilkerson Primary Care Provider: Jordy Saucedo Discharge Orders/Prescriptions Prescriptions: New Deep Sea Nasal 0.65 % Aerosol,[place] 2 spray NASAL Q4H PRN PRN (Reason: NASAL DRYNESS) Qty: 0 0RF sennosides-docusate sodium [Stool Softener-Stimulant Laxat] 8.6-50 mg Tablet 2 tab PO BID PRN PRN (Reason: Constipation) Qty: 0 0RF potassium chloride [Klor-Con M20] 20 mEq Tablet,Er Particles/Crystals 20 meq PO BIDCM Qty: 0 0RF lidocaine 5 % Adhesive Patch,Medicated 1 patch topical DAILY Qty: 0 0RF Protocol: *Topical Application Instructions APPLICATION INSTRUCTIONS: 12 hours on 12 hours off Continued aspirin [Adult Aspirin Regimen] 81 mg tablet,delayed release (DR/EC) 81 mg PO DAILY metoprolol tartrate 25 mg tablet 12.5 mg PO BID Qty: 60 atorvastatin 80 mg tablet 40 mg PO MOWEFR Qty: 30 warfarin 5 mg tablet 5 mg PO SUTUTH Qty: 30 nitroglycerin 0.4 mg tablet, sublingual 0.4 mg SUBLINGUAL Q5-15M PRN (Reason: chest pain) Qty: 25 1RF losartan 50 mg tablet 50 mg PO DAILY atorvastatin 80 mg tablet 80 mg PO SUTUTHSA amlodipine 5 mg tablet 5 mg PO DAILY warfarin 5 mg tablet 2.5 mg PO MOWEFRSA Referrals / Follow Up: Jordy Saucedo MD [Primary Care Provider] - Within 2 Weeks Disposition Disposition (needs filled in before D/C Order can be placed): [facility] Charges/Coding Visit Charges OBSV E&M: 45163 Observation care discharge
--- NOTE | 2022-01-23 16:07 | NURSING ---
Report called to [facility] at [facility].
== END 2022-01-23 16:40 | disposition skilled nursing facility (03) ==
LOC: ED 11:57 → MS3 12:39
PROVIDERS: Admitting Provider Internal Medicine; Emergency Provider Emergency Medicine; PCP Internal Medicine; Visit Provider Internal Medicine
DX: R29.6 Repeated falls (principal); U07.1 COVID-19; S20.229A Contusion of unspecified back wall of thorax, initial encounter; W07.XXXA Fall from chair, initial encounter; I25.5 Ischemic cardiomyopathy; I25.10 Atherosclerotic heart disease of native coronary artery without angina pectoris; Z87.891 Personal history of nicotine dependence; R53.1 Weakness; Z79.82 Long term (current) use of aspirin; I10 Essential (primary) hypertension; S00.83XA Contusion of other part of head, initial encounter; E78.00 Pure hypercholesterolemia, unspecified; Z95.1 Presence of aortocoronary bypass graft; Z95.810 Presence of automatic (implantable) cardiac defibrillator; Z79.899 Other long term (current) drug therapy; Z79.01 Long term (current) use of anticoagulants; I25.2 Old myocardial infarction
CPT/HCPCS: 36415; 70450; 72128; 80048; 80053; 81001; 83690; 83735; 84100; 84484; 85025; 85610; 85730; 87633; 87635; 93005; 97110; 97162; 97166; 97535; 99218; 99251; 99285; A4216; G0378; G0463; U0003; U0005

== ENCOUNTER → 2022-02-05 | Outpatient (REF) | payer OTHER, SELFPAY ==
[2022-02-05 07:12] LABS: Absolute Lymphocyte Count 1.77 X10^3/uL (0.83-4.51); Basophil# 0.05 X10^3/uL; Basophil% 0.6 % (0-1); Eosinophil# 0.15 X10^3/uL; Eosinophils% 1.9 % (0-5); Hematocrit 46.7 % (40-54); Hemoglobin 15.5 g/dL (13.0-16.5); Lymphocyte # 1.77 X10^3/ul (0.83-4.51); Lymphocyte % 22.2 % (19-41); Mean Corp Hgb Conc 33.2 g/dL (32-36); Mean Corpuscular Hgb 30.5 pg (27.0-32.0); Mean Corpuscular Volume 91.9 fL (80-94); Mean Platelet Vol. 12.4 fl (6.2-12.0); Monocyte# 0.92 X10^3/uL; Monocyte% 11.6 % (0-10); NRBC Flagged by Analyzer 0 % (0-5); Neutrophil # 5.04 X10^3/uL (2.7-7.7); Neutrophil % 63.3 % (47-70); Platelet Count 222 K/mm3 (150-450); RBC Distribution Width CV 13.3 % (11.6-14.6); RBC Distribution Width SD 45.3 fl (35.1-43.9); Red Blood Count 5.08 M/mm3 (4.6-6.2)
[2022-02-05 07:37] LABS: Anion Gap 4 (5-15); BUN 15 mg/dL (7-18); BUN/Creat Ratio 16.6 RATIO (10-20); Calcium,Total 8.9 mg/dL (8.5-10.1); Chloride 110 mmol/L (98-107); EST Glomerular Filtration Rate 87 mL/min (>60); Est Glom Filt Rate - Afr Amer 105 mL/min (>60); Glucose 109 mg/dL (74-106); Magnesium 2.5 mg/dL (1.6-2.6); Potassium 4.2 mmol/L (3.5-5.1); Sodium Level 142 mmol/L (136-145)
== END ==
LOC: OLS.SW 05:00
PROVIDERS: PCP Internal Medicine; Visit Provider Internal Medicine
DX: I10 Essential (primary) hypertension (principal); Z79.899 Other long term (current) drug therapy
CPT/HCPCS: 36415; 80048; 83735; 85025

== ENCOUNTER 2023-02-20 08:57 | Inpatient (IN) | payer MEDICARE, OTHER, SELFPAY ==
[2023-02-20 08:58] VITALS: BP 178/90; PULSE 74; RESP 18; TEMP 36.4; O2SAT 96; BMI 31.1
--- NOTE | 2023-02-20 09:13 | CT_ITS ---
STUDY: CT LUMBAR SPINE WITHOUT CONTRAST REASON FOR EXAM: Male, 77 years old. Trauma -- Please include sacrum/coccyx. Pain. RADIATION DOSAGE (If Supplied By Facility): CTDIvol = ( 26.69 ) mGy, DLP = ( 1055.90 ) mGycm TECHNIQUE: The patient was scanned in a multi detector CT scanner. High resolution transaxial imaging was performed. Images were obtained from L1 to S1 vertebral level. Sagittal and coronal images were reconstructed. Individualized dose optimization techniques were used for this CT. COMPARISON: None FINDINGS: Normal lumbar lordosis. There is no substantial scoliosis. Normal vertebrae of the lumbar spine. L1-2: Mild degree of disc space narrowing. Spondylosis. L2-3: Mild degree of disc space narrowing. Disc degeneration and spondylosis. L3-4: Mild degree of disc space narrowing. Spondylosis. Mild diffuse posterior disc bulge. Facet joint osteoarthritis and hypertrophy with bilateral neural foraminal stenosis worse on the left side. L4-5: Diffuse posterior disc bulge. Hypertrophy of the ligamenta flava. Facet joint osteoarthritis and hypertrophy. Mild degree of bilateral neural foraminal and central canal stenosis. L5-S1: Facet joint osteoarthritis and hypertrophy. Spondylosis. No significant stenosis seen. Degenerative changes of the sacroiliac joints bilaterally. No fracture is seen. Infrarenal abdominal aortic aneurysm with a transverse dimension of 3.[address]/Spine Lumbar without Contrast IMPRESSION: Multilevel degenerative changes, as described above. Electronically Signed: Garcia Newman MD at 9:52 EST ,
--- NOTE | 2023-02-20 09:16 | ED.VIS.BACK ---
HPI History of Present Illness Chief Complaint: Back Narrative Narrative: 77-year-old male past medical history of frequent falls, presents via EMS with low back pain from a fall on Thursday, 5 days ago. He and his relate history that he has times when he is very weak and just goes out. On Thursday, he was leaning forward, lost his balance and may have felt dizzy, but ended up rolling backwards onto his tailbone. Since then has had low back pain. It is worse with transfer. He has been taking Aleve without relief. He states that sometimes when he lays flat, it is improved but when he tries to get up and transfer, he has exquisite pain in his low back. He denies any fevers or chills, no cauda equina type symptoms. Pain is worse with movement, and is relieved by nothing. He states usually after he falls like he did a few weeks ago, he can recuperate in a few days, but he has had continued pain in his low back. [facility] Medical History Atherosclerotic heart disease of [place] coronary artery without angina pectoris Bilateral carotid artery stenosis Coronary-myocardial bridge Essential hypertension Facial laceration Fall Fatigue History of myocardial infarction Ischemic cardiomyopathy Left ventricular apical thrombus Pure hypercholesterolemia Home Medications aspirin 81 mg tablet,delayed release (Adult Aspirin Regimen) 81 mg PO DAILY [facility] 10/25/18 [History Last Taken 2 Days Ago ~01/19/22] metoprolol tartrate 25 mg tablet 12.5 mg PO BID BLOOD PRESSURE #60 tabs 02/22/19 [History Last Taken 01/20/22] nitroglycerin 0.4 mg sublingual tablet 0.4 mg sublingual Q5-15M PRN chest pain #25 tabs 02/24/19 [Rx Last Taken Unknown] losartan 50 mg tablet 50 mg PO DAILY BLOOD PRESSURE 12/21/19 [History Last Taken 01/20/22] atorvastatin 80 mg tablet 40 mg PO MOWEFR cholesterol #30 tabs 08/27/21 [History Last Taken 01/20/22] warfarin 5 mg tablet 5 mg PO SUTUTH BLOOD THINNER #30 tabs 08/27/21 [History Last Taken 01/19/22] amlodipine 5 mg tablet 5 mg PO DAILY blood pressure 01/21/22 [History Last Taken 01/20/22] atorvastatin 80 mg tablet 80 mg PO SUTUTHSA CHOLESTEROL 01/21/22 [History Last Taken 01/19/22] warfarin 5 mg tablet 2.5 mg PO MOWEFRSA BLOOD THINNER 01/21/22 [History Last Taken 01/20/22] lidocaine 5 % topical patch 1 patch topical DAILY #0 ea 01/23/22 [Rx Last Taken Unknown] sennosides 8.6 mg-docusate sodium 50 mg tablet (Stool Softener-Stimulant Laxative) 2 tab PO BID PRN PRN Constipation #0 tabs 01/23/22 [Rx Last Taken Unknown] sodium chloride 0.65 % nasal spray aerosol (Deep Sea Nasal) 2 spray NASAL Q4H PRN PRN NASAL DRYNESS #0 mL 01/23/22 [Rx Last Taken Unknown] Allergy/AdvReac Type Severity Reaction Status Date / Time No Known Allergies Allergy Verified 02/20/23 08:57 Family History Father AAA (abdominal aortic aneurysm, ruptured), Onset Age: 89 Mother Myocardial infarction Sudden cardiac , Onset Age: 80 Brother Hypertension Surgical History History of appendectomy History of coronary artery bypass surgery (~10/31/16) History of shoulder surgery History of tonsillectomy Hx of angioplasty Hx of colonoscopy Presence of implantable cardioverter-defibrillator (ICD) (~04/14/19) Social History Smoking Status: Former smoker how long ago did patient quit smokin alcohol intake: never substance use type: does not use caffeine: Yes Type: coffee Number of servings: 1 what type of physical activity do you participate in: none frequency: does not exercise ROS ROS ED ROS Narrative Constitutional: No fever, no chills. HEENT: No sore throat. No neck pain. No loss of vision. No rhinorrhea. Cardiovascular: No chest pain. No palpitations. No pedal edema. Respiratory: No cough, no shortness of breath. Abdominal: No abdominal pain. No nausea. No vomiting. Genitourinary: No dysuria. No hematuria. Musculoskeletal: No myalgias. No arthralgias. Positive low back pain. Neurologic: No headaches. No dizziness. No lightheadedness. Skin: No rash. No change in color. Psychiatric: No depression. No anxiety. EXAM Physical Exam Narrative Exam Narrative: Afebrile. Vital signs noted. CS 15. ABCs intact. HEENT: Normocephalic. Atraumatic. PERRL, EOMI. Neck soft and supple. No point tenderness or step off. Cardiovascular: Regular rate and rhythm. No murmurs, rubs, or gallops appreciated. Respiratory: No tachypnea. Lungs clear to auscultation bilaterally. Gastrointestinal: Abdomen soft, nontender, with normoactive bowel sounds. No rebound or guarding. Neurological: Awake. Alert. Nonfocal, nonlateralizing. Skin: No rash. Normal color. No pallor. Musculoskeletal: No pedal edema. Full range of motion extremities. Tenderness to low back/lumbar area, no crepitance. No vertebral point tenderness or bony step-off. Pelvis stable. Full range of motion of bilateral hips and knees, flexion and extension of hips and knees intact bilaterally. Const Vital Signs: 02/20/23 08:58 02/20/23 10:32 02/20/23 10:33 Temperature 97.5 F L 97.5 F L Temperature Source Temporal Pulse Rate 74 63 63 Respiratory Rate 18 16 16 Blood Pressure 178/90 H 158/71 H 158/71 H Blood Pressure Mean 119 100 100 Pulse Ox 96 97 97 Oxygen Delivery Method Room Air Room Air MDM MDM MDM Narrative Medical decision making narrative: In the differential diagnosis would be pelvic fracture versus hip fracture versus vertebral compression fracture or transverse process fracture. I had a lengthy discussion with the patient and his . They states that they have discussed whether or not he needs placement, but are undecided. Initially, I do not feel that laboratory work is indicated, and this was discussed with his who agrees but I will obtain imaging of his lumbosacral spine in the form of CT. He was given Percocet for analgesia here. I reviewed the CT report which shows multilevel degenerative changes and bulging disks posteriorly with spinal stenosis. I do not feel he requires emergent MRI as he has full range of motion of his bilateral legs. Attempt was made to sit the patient up, but he states his pain is intractable. I once again discussed having him observed for intractable back pain as he is unable to get up and perform his ADLs. He was administered morphine intravenously after saline lock was inserted and basic labs obtained. I will discuss patient with the hospitalist for observation. Patient is in stable condition. Lab Data Labs: Laboratory Results - last 24 hr 02/20/23 10:35 WBC 8.9 RBC 5.32 Hgb 15.7 Hct 48.4 MCV 91.0 MCH 29.5 MCHC 32.4 RDW Std Deviation 44.0 H RDW Coeff of Jil 13.2 Plt Count 162 MPV 11.3 Immature Gran % (Auto) 0.400 Neut % (Auto) 80.2 H Lymph % (Auto) 10.0 L [place] % (Auto) 8.4 Eos % (Auto) 0.6 Baso % (Auto) 0.4 Absolute Neuts (auto) 7.2 Absolute Lymphs (auto) 0.89 Nucleated RBC % 0 Sodium 142 Potassium 4.1 Chloride 110 H Carbon Dioxide 28.0 Anion Gap 4 L BUN 21 H Creatinine 1.01 Estim Creat Clear Calc 67.23 Est GFR (MDRD) Af Amer 92 Est GFR (MDRD) Non-Af 76 BUN/Creatinine Ratio 20.8 H Glucose 119 H Calcium 8.9 Radiography Diagnostic Testing: Clinical Impression(s) from Imaging Studies Lumbar Spine CT 02/20/23 09:13 IMPRESSION: Multilevel degenerative changes, as described above. Electronically Signed: Garcia Newman MD at 9:52 EST , Management Discussion w/another healthcare provider: Hospitalist (Dr. Cruz) Discharge Plan Dx/Rx/DC Orders Clinical Impression: Spinal stenosis, Frequent falls, Intractable low back pain, Inability to perform activities of daily living, Degenerative joint disease of spine Disposition Disposition: Acute Care Hospital [facility]
[2023-02-20] MEDS: Oxycodone/Apap 5/325 Tablet PO (09:22)
[2023-02-20 10:32] VITALS: BP 158/71; PULSE 63; RESP 16; O2SAT 97
[2023-02-20 10:33] VITALS: BP 158/71; PULSE 63; RESP 16; TEMP 36.4; O2SAT 97
[2023-02-20 10:41] LABS: Absolute Lymphocyte Count 0.89 X10^3/uL (0.83-4.51); Absolute Neutrophil Count 7.2 X10^3/uL (2.0-7.7); Basophil# 0.04 X10^3/uL; Basophil% 0.4 % (0-1); Eosinophil# 0.05 X10^3/uL; Eosinophils% 0.6 % (0-5); Hematocrit 48.4 % (40-54); Hemoglobin 15.7 g/dL (13.0-16.5); Lymphocyte # 0.89 X10^3/ul (0.83-4.51); Mean Corp Hgb Conc 32.4 g/dL (32-36); Mean Corpuscular Hgb 29.5 pg (27.0-32.0); Mean Platelet Vol. 11.3 fl (6.2-12.0); Monocyte# 0.75 X10^3/uL; Monocyte% 8.4 % (0-10); NRBC Flagged by Analyzer 0 % (0-5); Neutrophil # 7.15 X10^3/uL (2.7-7.7); Neutrophil % 80.2 % (47-70); Platelet Count 162 K/mm3 (150-450); RBC Distribution Width CV 13.2 % (11.6-14.6); Red Blood Count 5.32 M/mm3 (4.6-6.2); White Blood Count 8.9 K/mm3 (4.4-11.0)
[2023-02-20 10:54] LABS: Anion Gap 4 (5-15); BUN 21 mg/dL (7-18); BUN/Creat Ratio 20.8 RATIO (10-20); Calcium,Total 8.9 mg/dL (8.5-10.1); Chloride 110 mmol/L (98-107); Creatinine, Serum 1.01 mg/dL (0.70-1.30); EST Glomerular Filtration Rate 76 mL/min (>60); Est Glom Filt Rate - Afr Amer 92 mL/min (>60); Estimated Creatinine Clearance 67.23 ml/min; Glucose 119 mg/dL (74-106); Potassium 4.1 mmol/L (3.5-5.1); Sodium Level 142 mmol/L (136-145)
[2023-02-20] MEDS: Morphine 4 MG/ML Syringe IV ×2 (11:08→14:01)
--- NOTE | 2023-02-20 11:26 | HP.PCM.HOS_ITS ---
HPI - General General Date of Admission: 02/20/23 Date of Service: 02/20/23 Chief Complaint: Intractable back pain HPI Narrative OSMAN JONES, is a 77 M who presented to [facility] ED on 02/20/2023 with worsening low back pain. Patient seen at bedside, and daughter present. Patient was laying flat in bed, did not move much during our encounter. Patient states that he had a fall onto his tailbone on Thursday and has had worsening low back pain since then. Was so bad this morning that he could not get out of bed without severe pain and family brought him to the ED for further evaluation. Patient states that he continues to have severe low back pain with any movement. He denies any loss of bowel or bladder function. Denies any significant radiation of pain down his legs. Patient has a history of recurrent falls. Uses a 4-point walker at home at baseline. Has been using the walker for about the last year. Patient and family note that he was hospitalized at [facility] around this time last year for a COVID infection and had difficulty working with therapy at that time. He was discharged to [facility] and spent several weeks there before being able to go home. Patient and family state he has small falls at home fairly frequently. Patient denies any history of significant low back pain. Patient does note that with some of these episodes, he feels like he goes out and does not remember what happened. Family is unable to tell me if he actually passes out with these episodes. Patient does have a history of ischemic cardiomyopathy with ICD in place since 2019. Previously followed with Dr. Escobar with cardiology, last saw his office in August 2021. Has been on the same medications at same doses since that time. Patient does seem to report worsening dizziness and lightheadedness when going from sitting to standing at baseline. Patient otherwise denies any recent illnesses. Denies any fevers or chills. Denies any other pain or discomfort at this time. No other acute concerns. [facility] Medical History Atherosclerotic heart disease of [place] coronary artery without angina pectoris Bilateral carotid artery stenosis Coronary-myocardial bridge Essential hypertension Facial laceration Fall Fatigue History of myocardial infarction Ischemic cardiomyopathy Left ventricular apical thrombus Pure hypercholesterolemia Home Medications aspirin 81 mg tablet,delayed release (Adult Aspirin Regimen) 81 mg PO DAILY [facility] 10/25/18 [History Last Taken 2 Days Ago ~01/19/22] metoprolol tartrate 25 mg tablet 12.5 mg PO BID BLOOD PRESSURE #60 tabs 02/22/19 [History Last Taken 01/20/22] nitroglycerin 0.4 mg sublingual tablet 0.4 mg sublingual Q5-15M PRN chest pain #25 tabs 02/24/19 [Rx Last Taken Unknown] losartan 50 mg tablet 50 mg PO DAILY BLOOD PRESSURE 12/21/19 [History Last Taken 01/20/22] atorvastatin 80 mg tablet 40 mg PO MOWEFR cholesterol #30 tabs 08/27/21 [History Last Taken 01/20/22] warfarin 5 mg tablet 5 mg PO SUTUTH BLOOD THINNER #30 tabs 08/27/21 [History Last Taken 01/19/22] amlodipine 5 mg tablet 5 mg PO DAILY blood pressure 01/21/22 [History Last Taken 01/20/22] atorvastatin 80 mg tablet 80 mg PO SUTUTHSA CHOLESTEROL 01/21/22 [History Last Taken 01/19/22] warfarin 5 mg tablet 2.5 mg PO MOWEFRSA BLOOD THINNER 01/21/22 [History Last Taken 01/20/22] lidocaine 5 % topical patch 1 patch topical DAILY #0 ea 01/23/22 [Rx Last Taken Unknown] sennosides 8.6 mg-docusate sodium 50 mg tablet (Stool Softener-Stimulant Laxative) 2 tab PO BID PRN PRN Constipation #0 tabs 01/23/22 [Rx Last Taken Unknown] sodium chloride 0.65 % nasal spray aerosol (Deep Sea Nasal) 2 spray NASAL Q4H PRN PRN NASAL DRYNESS #0 mL 01/23/22 [Rx Last Taken Unknown] Allergy/AdvReac Type Severity Reaction Status Date / Time No Known Allergies Allergy Verified 02/20/23 08:57 Family History Father AAA (abdominal aortic aneurysm, ruptured), Onset Age: 89 Mother Myocardial infarction Sudden cardiac , Onset Age: 80 Brother Hypertension Surgical History History of appendectomy History of coronary artery bypass surgery (~10/31/16) History of shoulder surgery History of tonsillectomy Hx of angioplasty Hx of colonoscopy Presence of implantable cardioverter-defibrillator (ICD) (~04/14/19) Social History Smoking Status: Former smoker how long ago did patient quit smokin alcohol intake: never substance use type: does not use caffeine: Yes Type: coffee Number of servings: 1 what type of physical activity do you participate in: none frequency: does not exercise ROS Constitutional Constitutional: Reports weakness; Denies change in weight, chills, fatigue or fever(s) Eyes Eyes: Denies change in vision Cardiovascular Cardiovascular: Denies chest pain, dyspnea on exertion, edema, lightheadedness or palpitations Respiratory/Chest Respiratory/Chest: Denies cough Gastrointestinal Gastrointestinal: Denies abdominal pain, constipation, diarrhea, nausea or vomiting Genitourinary Genitourinary: Denies dysuria Musculoskeletal Musculoskeletal: Reports back pain Neurologic Neurologic: Reports abnormal gait and dizziness; Denies focal weakness, headache(s), numbness or paresthesias Vital Signs Vital Signs Vital Signs: 02/20/23 08:58 02/20/23 10:32 02/20/23 10:33 Temperature 97.5 F L 97.5 F L Temperature Source Temporal Pulse Rate 74 63 63 Respiratory Rate 18 16 16 Blood Pressure 178/90 H 158/71 H 158/71 H Blood Pressure Mean 119 100 100 Pulse Ox 96 97 97 Oxygen Delivery Method Room Air Room Air Weight Weight: 104.3 kg Body Mass Index (BMI) 31.1 Physical Exam Const alert, oriented x3 and average body habitus Constitutional Narrative: Elderly male, chronically ill-appearing, laying flat in bed with minimal movement due to pain, conversing normally. General Appearance: cooperative HEENT normocephalic, head/scalp atraumatic, hearing grossly normal bilaterally, nasal mucous membranes and turbinates normal and moist oral mucous membranes Eyes PERRL, EOMs intact bilaterally and conjunctivae normal Neck full ROM, no lymphadenopathy and supple Lymph Lymphatic: no lymphadenopathy noted Chest inspection of chest normal Resp normal respiratory effort, normal air movement, no use of accessory muscles and clear to auscultation bilaterally Cardio regular rate, regular rhythm, no murmurs and peripheral pulses 2+ throughout GI normal to inspection, nondistended, normoactive bowel sounds, soft to palpation, non-tender and non-distended Back/Spine Back/Spine Narrative: Difficult to move patient to palpate lower back. No apparent spinous process tenderness on exam. Bilateral paraspinal muscular tension. Extremity normal to inspection and no pedal edema Extremity Narrative: Mild chronic venous stasis changes bilaterally. Skin no rashes or lesions noted Neuro no focal motor deficits Speech: speech normal Psych mental status grossly normal Results Lab / Micro Data 02/20/23 10:35 02/20/23 10:35 Labs: Laboratory Results - last 24 hr 02/20/23 10:35: WBC 8.9, RBC 5.32, Hgb 15.7, Hct 48.4, MCV 91.0, MCH 29.5, MCHC 32.4, RDW Std Deviation 44.0 H, RDW Coeff of Jil 13.2, Plt Count 162, MPV 11.3, Immature Gran % (Auto) 0.400, Neut % (Auto) 80.2 H, Lymph % (Auto) 10.0 L, [place] % (Auto) 8.4, Eos % (Auto) 0.6, Baso % (Auto) 0.4, Absolute Neuts (auto) 7.2, Absolute Lymphs (auto) 0.89, Nucleated RBC % 0, Sodium 142, Potassium 4.1, Chloride 110 H, Carbon Dioxide 28.0, Anion Gap 4 L, BUN 21 H, Creatinine 1.01, Estim Creat Clear Calc 67.23, Est GFR (MDRD) Af Amer 92, Est GFR (MDRD) Non-Af 76, BUN/Creatinine Ratio 20.8 H, Glucose 119 H, Calcium 8.9 Imagaing Radiology Impression Lumbar Spine CT 02/20/23 09:13 IMPRESSION: Multilevel degenerative changes, as described above. Electronically Signed: Garcia Newman MD at 9:52 EST , Assessment & Plan Assessment/Plan (1) Intractable low back pain: PLAN: Plan Patient is a 87-year-old male who presented to [facility] ED on 02/20/2023 with worsening low back pain. 1. Intractable low back pain with recent fall, history of recurrent falls, generalized weakness Difficult to determine degree of acute versus chronic back pain for patient. Known history of recurrent falls, uses 4-point walker at home. CT L-spine shows diffuse posterior disc bulge at L4-5, mild lumbar central canal stenosis, multilevel degenerative changes. No previous L-spine imaging. Notably no loss of bowel or bladder function, no radiculopathy. ? Admit under observation status to [facility]. Orthopedic surgery consulted. Treat pain with lidocaine patch, oxycodone 5 mg every 4 hours as needed for now. PT/OT/case management consulted. 2. Reported presyncopal symptoms; history of CAD s/p CABG, ischemic cardiomyopathy, history of ventricular thrombus Previously followed with Dr. Escobar with cardiology, last office visit in August 2021. History of CABG x 2 in 2017 done at [place]. Last echo in 03/2019 showed persistently decreased EF of 35%, moderate segmental systolic dysfunctio n, left ventricular apical thrombus. Patient has been on Coumadin since then for the apical thrombus. Had single-chamber ICD placed in 04/2019. Patient reports going out at times without warning. On discussion with patient and family, seems like patient has some lightheadedness and dizziness when going from sitting to standing. ? Blood pressure elevated on admission at rest. Unable to complete orthostatic vital signs right now due to intractable back pain as noted above. Will repeat echocardiogram. Will continue home medications as normal for now. Will consider ICD interrogation, as patient does have history of runs of NSVT in the past. Monitor telemetry. INR ordered. Chronic medical conditions: ? Hypertension: Continue home amlodipine, losartan, Lopressor. ? Hyperlipidemia: Continue home statin. DVT prophylaxis: Coumadin CODE STATUS: Full code, verified Expected disposition: Home with home health care versus SNF, TBD Total clinical time spent by myself addressing the patient's medical issues, reviewing all the data, and collaborating with patient's care team: 55 minutes. Charges/Coding Visit Charges Inpatient E&M: 80668 Init Hosp L2
[2023-02-20 14:26] VITALS: BMI 27.5
[2023-02-20] MEDS: Lidocaine 5% Patch 1 PATCH TOPICAL (15:39)
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
--- NOTE | 2023-02-20 16:51 | ECHOCS_ITS ---
Reason For Study: CHF Procedure This was a 2D Doppler, Color Flow transthoracic echocardiogram. The study was technically difficult. Contrast injection was performed. Patient unable to lay on left side due to severe back pain. Exam performed portable in patient room. Left Ventricle Normal LV size. The estimated ejection fraction is 45 %. Stage 1 diastolic dysfunction. Right Ventricle Normal RV size. Normal systolic function. Atria Normal left atrium. Normal right atrium. No doppler evidence for ASD. Mitral Valve There is no mitral valve stenosis. No mitral valve insufficiency. Tricuspid Valve There is no tricuspid stenosis. Trivial tricuspid valve insufficiency. Pulmonary artery systolic pressure is 25 mmHg. Aortic Valve Trisinus/trileaflet aortic valve. There is no aortic stenosis. No aortic valve insufficiency. Pulmonic Valve There is no pulmonic valvular stenosis. No pulmonic valve insufficiency. Great Vessels Normal aortic root. ECHO/Echo Complete W/ Contrast Interpretation Summary There is a large sized apical, septal, and anteroseptal wall motion abnormality with hypokinesis of the segments. The estimated ejection fraction is 45 %. Stage 1 diastolic dysfunction. Ordering Physician: Noé Cruz Referring Physician: Jordy Saucedo M.D. Performed By: Job Meier RCS
--- NOTE | 2023-02-20 18:33 | CONS.ORTHO ---
HPI Consult Data Date of Consult: 02/20/23 HPI Narrative HPI Narrative: OSMAN JONES, is a 77 M who presents with low back pain after a fall 2 days ago. Orthopedics spine was consulted today. I saw the patient he is comfortable in bed but mentions that anytime he bends forward or raises up his head of the bed, he gets severe pain in the lower back region. He has had low back pain for long period of time, many years. He is also had balance issues which are worsening over the last 5 years. He does not have a diagnosis or reason for the balance issues. He denies any radiation of pain from the lower back to the lower extremities. [facility] Medical History Atherosclerotic heart disease of [place] coronary artery without angina pectoris Bilateral carotid artery stenosis Coronary-myocardial bridge Essential hypertension Facial laceration Fall Fatigue History of myocardial infarction Ischemic cardiomyopathy Left ventricular apical thrombus Pure hypercholesterolemia Home Medications aspirin 81 mg tablet,delayed release (Adult Aspirin Regimen) 81 mg PO DAILY [facility] 10/25/18 [History Last Taken 2 Days Ago ~01/19/22] metoprolol tartrate 25 mg tablet 12.5 mg PO BID BLOOD PRESSURE #60 tabs 02/22/19 [History Last Taken 01/20/22] nitroglycerin 0.4 mg sublingual tablet 0.4 mg sublingual Q5-15M PRN chest pain #25 tabs 02/24/19 [Rx Last Taken Unknown] losartan 50 mg tablet 50 mg PO DAILY BLOOD PRESSURE 12/21/19 [History Last Taken 01/20/22] atorvastatin 80 mg tablet 40 mg PO MOWEFR cholesterol #30 tabs 08/27/21 [History Last Taken 01/20/22] warfarin 5 mg tablet 5 mg PO SUTUTH BLOOD THINNER #30 tabs 08/27/21 [History Last Taken 01/19/22] amlodipine 5 mg tablet 5 mg PO DAILY blood pressure 01/21/22 [History Last Taken 01/20/22] atorvastatin 80 mg tablet 80 mg PO SUTUTHSA CHOLESTEROL 01/21/22 [History Last Taken 01/19/22] warfarin 5 mg tablet 2.5 mg PO MOWEFRSA BLOOD THINNER 01/21/22 [History Last Taken 01/20/22] lidocaine 5 % topical patch 1 patch topical DAILY #0 ea 01/23/22 [Rx Last Taken Unknown] sennosides 8.6 mg-docusate sodium 50 mg tablet (Stool Softener-Stimulant Laxative) 2 tab PO BID PRN PRN Constipation #0 tabs 01/23/22 [Rx Last Taken Unknown] sodium chloride 0.65 % nasal spray aerosol (Deep Sea Nasal) 2 spray NASAL Q4H PRN PRN NASAL DRYNESS #0 mL 01/23/22 [Rx Last Taken Unknown] Allergy/AdvReac Type Severity Reaction Status Date / Time No Known Allergies Allergy Verified 02/20/23 08:57 Family History Father AAA (abdominal aortic aneurysm, ruptured), Onset Age: 89 Mother Myocardial infarction Sudden cardiac , Onset Age: 80 Brother Hypertension Surgical History History of appendectomy History of coronary artery bypass surgery (~10/31/16) History of shoulder surgery History of tonsillectomy Hx of angioplasty Hx of colonoscopy Presence of implantable cardioverter-defibrillator (ICD) (~04/14/19) Social History Smoking Status: Former smoker how long ago did patient quit smokin alcohol intake: never substance use type: does not use caffeine: Yes Type: coffee Number of servings: 1 what type of physical activity do you participate in: none frequency: does not exercise Vital Signs Vital Signs Vital Signs: 02/20/23 08:58 02/20/23 10:32 02/20/23 10:33 Temperature 97.5 F L 97.5 F L Temperature Source Temporal Pulse Rate 74 63 63 Respiratory Rate 18 16 16 Respiratory Effort Blood Pressure 178/90 H 158/71 H 158/71 H Blood Pressure Mean 119 100 100 Pulse Ox 96 97 97 Oxygen Delivery Method Room Air Room Air 02/20/23 14:38 02/20/23 15:40 Temperature Temperature Source Pulse Rate Respiratory Rate Respiratory Effort Normal Blood Pressure Blood Pressure Mean Pulse Ox Oxygen Delivery Method Room Air Room Air Weight Weight: 202 lb 15.991 oz Body Mass Index (BMI) 27.5 Physical Exam Narrative Examination of the back shows mild vague tenderness in midline and paraspinal region in the mid to lower lumbar region. Neurologic evaluation of upper and lower extremity shows 5 x 5 power in all groups normal sensations in all dermatomes. There is no hyperreflexia. Lab / Micro Data 02/20/23 10:35 02/20/23 10:35 Labs: Laboratory Results - last 24 hr 02/20/23 10:35: WBC 8.9, RBC 5.32, Hgb 15.7, Hct 48.4, MCV 91.0, MCH 29.5, MCHC 32.4, RDW Std Deviation 44.0 H, RDW Coeff of Jil 13.2, Plt Count 162, MPV 11.3, Immature Gran % (Auto) 0.400, Neut % (Auto) 80.2 H, Lymph % (Auto) 10.0 L, [place] % (Auto) 8.4, Eos % (Auto) 0.6, Baso % (Auto) 0.4, Absolute Neuts (auto) 7.2, Absolute Lymphs (auto) 0.89, Nucleated RBC % 0, Sodium 142, Potassium 4.1, Chloride 110 H, Carbon Dioxide 28.0, Anion Gap 4 L, BUN 21 H, Creatinine 1.01, Estim Creat Clear Calc 67.23, Est GFR (MDRD) Af Amer 92, Est GFR (MDRD) Non-Af 76, BUN/Creatinine Ratio 20.8 H, Glucose 119 H, Calcium 8.9 Imagaing Radiology Impression Lumbar Spine CT 02/20/23 09:13 IMPRESSION: Multilevel degenerative changes, as described above. Electronically Signed: Garcia Newman MD at 9:52 EST , Assessment & Plan Assessment/Plan (1) Degenerative joint disease of spine: QUALIFIERS: Spinal region: lumbar Spinal osteoarthritis complication: without myelopathy or radiculopathy Qualified Code(s): M47.816 - Spondylosis without myelopathy or radiculopathy, lumbar region PLAN: Plan I reviewed patient's CT lumbar spine done recently. This shows evidence of diffuse idiopathic skeletal hyperostosis or DISH. No obvious fractures noticed. No recent x-rays or MRI available. I explained to him that he does not seem to have had any fractures from the recent fall. His longstanding balance issues are difficult to explain from the available imaging. He may best be consulted with neurologist to identify his longstanding balance issues. His lower back pain has been chronic and gets aggravated with falls. It may be reasonable to consider obtaining MRI of the lumbar spine. Patient may follow-up with us as an outpatient after obtaining this MRI of the lumbar spine. Patient was in agreement. Charges/Coding Visit Charges Inpatient E&M: 52195 Init Hosp L2
[2023-02-20 19:56] VITALS: BP 139/70; PULSE 67
[2023-02-20] MEDS: Metoprolol Tartrate 25 MG Tablet 12.5 MG PO (19:56)
[2023-02-20] MEDS: Atorvastatin Calcium 40 MG Tablet PO (19:57)
[2023-02-20] MEDS: oxyCODONE 5 MG Tablet PO (20:04)
[2023-02-20] MEDS: Acetaminophen 325 MG Tablet 650 MG PO (20:04)
[2023-02-20 20:14] VITALS: BP 139/70; PULSE 67; RESP 16; TEMP 37.1; O2SAT 98
[2023-02-21] VITALS (10 sets, daily range): BP systolic 107–148; BP diastolic 62–77; PULSE 53–73; RESP 16–18; TEMP 36.5–36.9; O2SAT 93–97
[2023-02-21] MEDS: oxyCODONE 5 MG Tablet PO ×4 (01:56→22:57)
[2023-02-21] MEDS: Acetaminophen 325 MG Tablet 650 MG PO ×3 (06:32→22:58)
[2023-02-21 06:44] LABS: Hematocrit 44.1 % (40-54); Hemoglobin 14.7 g/dL (13.0-16.5); Mean Corp Hgb Conc 33.3 g/dL (32-36); Mean Corpuscular Hgb 30.5 pg (27.0-32.0); Mean Corpuscular Volume 91.5 fL (80-94); Mean Platelet Vol. 11.5 fl (6.2-12.0); Platelet Count 149 K/mm3 (150-450); RBC Distribution Width CV 13.2 % (11.6-14.6); RBC Distribution Width SD 44.2 fl (35.1-43.9); Red Blood Count 4.82 M/mm3 (4.6-6.2); White Blood Count 7.5 K/mm3 (4.4-11.0)
[2023-02-21 06:58] LABS: International Normalized Ratio 3.5
[2023-02-21 07:23] LABS: Anion Gap 3 (5-15); BUN 22 mg/dL (7-18); BUN/Creat Ratio 27.7 RATIO (10-20); Calcium,Total 8.5 mg/dL (8.5-10.1); Chloride 112 mmol/L (98-107); Creatinine, Serum 0.79 mg/dL (0.70-1.30); EST Glomerular Filtration Rate 101 mL/min (>60); Est Glom Filt Rate - Afr Amer 122 mL/min (>60); Glucose 92 mg/dL (74-106); Potassium 3.6 mmol/L (3.5-5.1); Sodium Level 141 mmol/L (136-145)
[2023-02-21] MEDS: Metoprolol Tartrate 25 MG Tablet 12.5 MG PO ×2 (07:45→22:57)
[2023-02-21] MEDS: Lidocaine 5% Patch 1 PATCH TOPICAL (07:45)
[2023-02-21] MEDS: Aspirin E.C. 81 MG Tablet PO (07:46)
[2023-02-21] MEDS: Losartan Potassium 50 MG Tablet PO (07:46)
[2023-02-21] MEDS: amLODIPine 5 MG Tablet PO (07:46)
[2023-02-21 12:21] LABS: Mucous, Urine 0 SEEN /hpf (<or=2+); Red Blood Cells-Urine 0 SEEN /hpf (0-5); Squamous Epithelial Cells - UA 0 SEEN /hpf (0-5)
--- NOTE | 2023-02-21 12:57 | PN.HOSP_ITS ---
Reason for Visit Reason for Visit: Diagnoses Spondylosis without myelopathy or radiculopathy, lumbar region (02/20/23) Subjective Subjective Patient seen at bedside this morning, present. Patient was still laying flat in bed and appeared uncomfortable with essentially any movement. Stated that his back feels about the same today as yesterday, still has significant pain with any movement. States that the pain medication has been somewhat helpful for him. He otherwise denies any fevers or chills or any other pain or discomfort. No other acute concerns morning. Objective Data Objective Data Vital Signs: Vital Signs Temp Pulse Resp BP Pulse Ox O2 Del Method 97.9 F 69 16 119/74 97 Room Air 02/21/23 11:48 02/21/23 11:48 02/21/23 11:48 02/21/23 11:48 02/21/23 11:48 02/21/23 11:48 Oxygen Delivery Method Room Air Weight: 92.079 kg Body Mass Index (BMI) 27.5 Intake & Output: Intake and Output for Last 24 Hours 02/19/23 02/20/23 02/21/23 23:59 23:59 23:59 Output Total 250 / 250 650 / 650 Balance -250 / -250 -650 / -650 Lab / Micro Data 02/21/23 06:19 02/21/23 06:19 Labs: Laboratory Results - last 24 hr 02/21/23 06:19: WBC 7.5, RBC 4.82, Hgb 14.7, Hct 44.1, MCV 91.5, MCH 30.5, MCHC 33.3, RDW Std Deviation 44.2 H, RDW Coeff of Jil 13.2, Plt Count 149 L, MPV 11.5, PT 36.0 H, INR 3.5, Sodium 141, Potassium 3.6, Chloride 112 H, Carbon Dioxide 26.0, Anion Gap 3 L, BUN 22 H, Creatinine 0.79, Estim Creat Clear Calc 67.90, Est GFR (MDRD) Af Amer 122, Est GFR (MDRD) Non-Af 101, BUN/Creatinine Ratio 27.7 H, Glucose 92, Calcium 8.5 Radiography Diagnostic Testing: Radiology Impression Echocardiogram 02/20/23 16:51 Interpretation Summary There is a large sized apical, septal, and anteroseptal wall motion abnormality with hypokinesis of the segments. The estimated ejection fraction is 45 %. Stage 1 diastolic dysfunction. Ordering Physician: Noé Cruz Referring Physician: Jordy Saucedo M.D. Performed By: Job Meier RCS Physical Exam Const alert, oriented x3 and average body habitus Constitutional Narrative: Elderly male, chronically ill-appearing, laying flat in bed with minimal movement due to pain, conversing normally. General Appearance: cooperative HEENT normocephalic, head/scalp atraumatic, hearing grossly normal bilaterally, nasal mucous membranes and turbinates normal and moist oral mucous membranes Eyes PERRL, EOMs intact bilaterally and conjunctivae normal Neck full ROM, no lymphadenopathy and supple Lymph Lymphatic: no lymphadenopathy noted Chest inspection of chest normal Resp normal respiratory effort, normal air movement, no use of accessory muscles and clear to auscultation bilaterally Cardio regular rate, regular rhythm, no murmurs and peripheral pulses 2+ throughout GI normal to inspection, nondistended, normoactive bowel sounds, soft to palpation, non-tender and non-distended Back/Spine Back/Spine Narrative: Difficult to move patient to palpate lower back. No apparent spinous process tenderness on exam. Bilateral paraspinal muscular tension. Extremity normal to inspection and no pedal edema Extremity Narrative: Mild chronic venous stasis changes bilaterally. Skin no rashes or lesions noted Neuro no focal motor deficits Speech: speech normal Psych mental status grossly normal Assessment & Plan Assessment/Plan (1) Intractable low back pain: PLAN: Plan Patient is a 87-year-old male who presented to [facility] ED on 02/20/2023 with worsening low back pain. 1. Intractable low back pain with recent fall, history of recurrent falls, generalized weakness Difficult to determine degree of acute versus chronic back pain for patient. Known history of recurrent falls, uses 4-point walker at home. CT L-spine shows diffuse posterior disc bulge at L4-5, mild lumbar central canal stenosis, multilevel degenerative changes. No previous L-spine imaging. Notably no loss of bowel or bladder function, no radiculopathy. ? Orthopedic surgery following. Patient appears to have DISH on imaging. Okay for MRI L-spine while inpatient, with orthopedic surgery follow-up outpatient. Unfortunately, with patient's ICD he will not be able to have the MRI done until Thursday. Continue lidocaine patch and oxycodone as needed for pain management. PT/OT/case management following. 2. Reported presyncopal symptoms; history of CAD s/p CABG, ischemic cardiomyopathy, history of ventricular thrombus Previously followed with Dr. Escboar with cardiology, last office visit in August 2021. History of CABG x 2 in 2017 done at [place]. Last echo in 03/2019 showed persistently decreased EF of 35%, moderate segmental systolic dysfunction, left ventricular apical thrombus. Patient has been on Coumadin since then for the apical thrombus. Had single-chamber ICD placed in 04/2019. Patient reports going out at times without warning. On discussion with patient and family, seems like patient has some lightheadedness and dizziness when going from sitting to standing. Echo on 02/21 showed EF 45%, stage I diastolic dysfunction, large size apical, septal and anteroseptal wall motion ab normality with hypokinesis of the segments; mild improvement from previous. ? Blood pressure elevated on admission at rest. Unable to complete orthostatic vital signs at this time due to intractable back pain as noted above. Patient with normal sinus rhythm on telemetry, no abnormalities noted. Will hold off on ICD interrogation at this time. Continue all home medications as normal. Chronic medical conditions: ? Hypertension: Continue home amlodipine, losartan, Lopressor. ? Hyperlipidemia: Continue home statin. DVT prophylaxis: Coumadin CODE STATUS: Full code, verified Expected disposition: Home with home health care versus SNF, TBD Total clinical time spent by myself addressing the patient's medical issues, reviewing all the data, and collaborating with patient's care team: 35 minutes. Charges/Coding Visit Charges Inpatient E&M: 35283 Subs Hosp L2
--- NOTE | 2023-02-21 13:01 | CASEMGMT ---
HORACIO POLLOCK Discharge Planning: Face to Face with patient for initial transition planning/care coordination assessment.?HORACIO POLLOCK introduced self and role at [facility], pt alert, lying in bed, answering questions appropriately, voices understanding and is agreeable to participating in assessment.? Care providers, pharmacy,?and demographics verified. ? Admitting dx: back pain PCP: Lewis Specialists: [facility] Preferred Pharmacy: [facility] Insurance: [employer] and [employer] A; states he is switching to [employer] on 03/09/23. Prescription Benefit:?yes LNOK: spouse Aure Living Arrangements: pt lives with his in a two story home with two steps to enter and 13 steps to his second floor. Pt states he has a 1/2 bath on the first floor and his bedroom and full bath are on the second floor. Pt states he was independent with ADLs but has recently required the assistance of his son and KATEY. Pt states he manages his meds and his is currently performing household tasks including cooking and laundry. Pt states he was able to do these tasks previously. Transportation: pt had been driving until a couple of months ago. His and daughter provide transportation currently DME: uses a walker at baseline, w/c, shower chair, grab bars, hand held shower, and lift chair (sleeps in this chair) SNF: [facility] previously HHC: had but does not recall the name of the provider Pt's goal/plan: TBD. Pt states that he currently cannot turn in bed without experiencing 10/10 pain and has therefore not been able to sit on the edge of the bed or ambulate. Pt states he is awaiting his MRI to determine etiology of his pain and next steps. Explained [employer] form to pt and answered pt's questions. Pt states he will not sign anything until his the reason for his pain has been determined or his /daughter have reviewed the form. Pt provided a copy of the form for his and family's review. Educated pt to ask for lead case manager if he has further questions or would like to sign the form. Will follow-up with pt on Thursday for further review. Will continue to follow results of w/u and pt's participation in PT/OT to determine further discharge needs. Billy Apodaca RN CM
[2023-02-21 13:19] LABS: Color, Urine Yellow (Yellow); Glucose, Dipstick Normal (Normal); Ketone-Dipstick Negative (Negative); Leukocyte Esterase-Dipstick 25 /ul (Negative); Nitrite-Dipstick Negative (Negative); Occult Blood-Urine 25 /ul (Negative); Protein-Dipstick 15 mg/dl (Negative); Urine Bilirubin Dipstick Negative (Negative); Urine Clarity Sl. Cloudy (Clear); Urine Urobilinogen 4 mg/dl (Normal)
[2023-02-21 13:37] LABS: Bacteria RARE /hpf (None Seen); White Blood Cells 0-5 SEEN /hpf (0-5)
--- NOTE | 2023-02-21 15:53 | CASEMGMT ---
Addendum entered by Nika Mejia 02/21/23 18:05: Social Work Pt is changed to inpt. SW called to let her know, she thanked SW for letting her know. DM Kitchen Original Note: Social Work SW spoke w/pt and , completed SDOH which seems to have been triggered in error. had many questions about pt being here observation, expressed much frustration in regard to this. SW explained will let the correctional case manager know and see if she can come up to speak w/them. SW also spoke w/them briefly about discharge plan. states pt went to [facility] last year and the rehab was terrible, but home health was good. SW/CM will continue to follow to see what pt may need at discharge. Also, pt's insurance will change to [employer] as the first of the year. DM Kitchen
[2023-02-21] MEDS: Atorvastatin Calcium 40 MG Tablet PO (22:58)
[2023-02-22] VITALS (10 sets, daily range): BP systolic 122–135; BP diastolic 69–75; PULSE 59–78; RESP 16; TEMP 36.5–37; O2SAT 95–96
[2023-02-22] MEDS: Acetaminophen 325 MG Tablet 650 MG PO ×2 (07:51→16:27)
[2023-02-22] MEDS: Metoprolol Tartrate 25 MG Tablet 12.5 MG PO ×2 (07:51→22:28)
[2023-02-22] MEDS: oxyCODONE 5 MG Tablet PO ×3 (07:51→22:28)
[2023-02-22] MEDS: Aspirin E.C. 81 MG Tablet PO (07:53)
[2023-02-22] MEDS: Losartan Potassium 50 MG Tablet PO (07:53)
[2023-02-22] MEDS: amLODIPine 5 MG Tablet PO (07:53)
[2023-02-22] MEDS: Lidocaine 5% Patch 1 PATCH TOPICAL (07:55)
--- NOTE | 2023-02-22 12:13 | PCM.PN.HOSP ---
Reason for Visit Reason for Visit: Diagnoses Spondylosis without myelopathy or radiculopathy, lumbar region (02/21/23) Other low back pain (02/21/23) Subjective Subjective Patient seen at bedside this morning. Laying in bed, appears slightly more comfortable today, no acute distress. Patient states he was able to work a bit with physical therapy yesterday. They got him up and moved him to the chair. He reported significant low back pain with this movement but was able to complete it. They tried to walk him around but he was only able to take a few steps before feeling too much pain and needing to sit down. Patient otherwise denies any fevers or chills, chest pain, shortness of breath. Denies any other acute pain or discomfort. No other acute concerns this morning. Objective Data Objective Data Vital Signs: Vital Signs Temp Pulse Resp BP Pulse Ox O2 Del Method 97.9 F 63 16 131/73 H 96 Room Air 02/22/23 11:33 02/22/23 11:33 02/22/23 11:33 02/22/23 11:33 02/22/23 11:33 02/22/23 11:33 Oxygen Delivery Method Room Air Weight: 92.079 kg Body Mass Index (BMI) 27.5 Intake & Output: Intake and Output for Last 24 Hours 02/20/23 02/21/23 02/22/23 23:59 23:59 23:59 Intake Total 250 / 250 350 / 350 Output Total 250 / 250 850 / 1050 300 / 300 Balance -250 / -250 -600 / -800 50 / 50 Lab / Micro Data 02/21/23 06:19 02/21/23 06:19 Labs: Laboratory Results - last 24 hr 02/21/23 11:52: Urine Color Yellow, Urine Clarity Sl. Cloudy, Urine pH 6.0, Ur Specific [place] 1.020, Urine Protein 15 H, Urine Glucose (UA) Normal, Urine Ketones Negative, Urine Occult Blood 25 H, Urine Nitrite Negative, Urine Bilirubin Negative, Urine Urobilinogen 4 H, Ur Leukocyte Esterase 25 H, Urine RBC 0 SEEN, Urine WBC 0-5 SEEN, Ur Squamous Epith Cells 0 SEEN, Urine Bacteria RARE, Urine Mucus 0 SEEN Radiography Diagnostic Testing: Radiology Impression Echocardiogram 02/20/23 16:51 Interpretation Summary There is a large sized apical, septal, and anteroseptal wall motion abnormality with hypokinesis of the segments. The estimated ejection fraction is 45 %. Stage 1 diastolic dysfunction. Ordering Physician: Noé Cruz Referring Physician: Jordy Saucedo M.D. Performed By: Job Meier RCS Physical Exam Const alert, oriented x3 and average body habitus Constitutional Narrative: Elderly male, chronically ill-appearing, laying in bed, appears slightly more comfortable today than previous days, conversing normally, no acute distress. General Appearance: cooperative HEENT normocephalic, head/scalp atraumatic, hearing grossly normal bilaterally, nasal mucous membranes and turbinates normal and moist oral mucous membranes Eyes PERRL, EOMs intact bilaterally and conjunctivae normal Neck full ROM, no lymphadenopathy and supple Lymph Lymphatic: no lymphadenopathy noted Chest inspection of chest normal Resp normal respiratory effort, normal air movement, no use of accessory muscles and clear to auscultation bilaterally Cardio regular rate, regular rhythm, no murmurs and peripheral pulses 2+ throughout GI normal to inspection, nondistended, normoactive bowel sounds, soft to palpation, non-tender and non-distended Back/Spine Back/Spine Narrative: Difficult to move patient to palpate lower back. No apparent spinous process tenderness on exam. Bilateral paraspinal muscular tension. Extremity normal to inspection and no pedal edema Extremity Narrative: Mild chronic venous stasis changes bilaterally. Skin no rashes or lesions noted Neuro no focal motor deficits Speech: speech normal Psych mental status grossly normal Assessment & Plan Assessment/Plan (1) Intractable low back pain: PLAN: Plan Patient is a 87-year-old male who presented to [facility] ED on 02/20/2023 with worsening low back pain. 1. Intractable low back pain with recent fall, history of recurrent falls, generalized weakness Difficult to determine degree of acute versus chronic back pain for patient. Known history of recurrent falls, uses 4-point walker at home. CT L-spine shows diffuse posterior disc bulge at L4-5, mild lumbar central canal stenosis, multilevel degenerative changes. No previous L-spine imaging. Notably no loss of bowel or bladder function, no radiculopathy. ? Orthopedic surgery following. Patient appears to have DISH on imaging. Okay for MRI L-spine while inpatient, with orthopedic surgery follow-up outpatient. Unfortunately, with patient's ICD he will not be able to have the MRI done until Thursday. Continue lidocaine patch and oxycodone as needed for pain management. PT/OT/case management following, likely home with home health care versus SNF on discharge. 2. Reported presyncopal symptoms; history of CAD s/p CABG, ischemic cardiomyopathy, history of ventricular thrombus Previously followed with Dr. Escobar with cardiology, last office visit in August 2021. History of CABG x 2 in 2017 done at [place]. Last echo in 03/2019 showed persistently decreased EF of 35%, moderate segmental systolic dysfunction, left ventricular apical thrombus. Patient has been on Coumadin since then for the apical thrombus. Had single-chamber ICD placed in 04/2019. Patient reports going out at times without warning. On discussion with patient and family, seems like patient has some lightheadedness and dizziness when going from sitting to standing. Echo on 02/21 showed EF 45%, stage I diastolic dysfunction, large size apical, septal and anteroseptal wall motion abnormality with hypokinesis of the segments; mild improvement from previous. ? Patient denied presyncopal symptoms with getting up to work with PT/OT on 02/21. Have not completed orthostatic vital signs to this point but blood pressure has remained stable throughout admission. Patient with normal sinus rhythm on telemetry, no abnormalities noted. Will hold off on ICD interrogation at this time. Continue all home medications as normal. Recommended to patient that he reestablish with cardiology in the office after discharge. Chronic medical conditions: ? Hypertension: Continue home amlodipine, losartan, Lopressor. ? Hyperlipidemia: Continue home statin. DVT prophylaxis: Coumadin CODE STATUS: Full code, verified Expected disposition: Home with home health care versus SNF, 2-3 days Total clinical time spent by myself addressing the patient's medical issues, reviewing all the data, and collaborating with patient's care team: 35 minutes. Charges/Coding Visit Charges Inpatient E&M: 64845 Subs Hosp L2
[2023-02-22] MEDS: Atorvastatin Calcium 40 MG Tablet PO (22:28)
[2023-02-23] VITALS (13 sets, daily range): BP systolic 110–171; BP diastolic 62–125; PULSE 65–86; RESP 14–18; TEMP 36.7–37; O2SAT 92–97
[2023-02-23] MEDS: oxyCODONE 5 MG Tablet PO ×4 (03:00→17:50)
[2023-02-23] MEDS: Acetaminophen 325 MG Tablet 650 MG PO ×3 (03:00→17:50)
--- NOTE | 2023-02-23 06:00 | MRI_ITS ---
STUDY: MRI LUMBAR SPINE WITHOUT CONTRAST REASON FOR EXAM: Male, 77 years old. severe low back pain, acute on chronic TECHNIQUE: Standardized fat and water weighted pulse sequences were obtained in the sagittal and axial planes. COMPARISON: CT 02/20/2023 FINDINGS: T12-L1: Disc desiccation but no disc protrusion, spinal stenosis, or neural foraminal stenosis. Normal lumbar lordosis. There is no substantial scoliosis. Normal conus medullaris that terminates at the T12/L1. L1-2: Mild bilobed disc protrusion asymmetric left produces mild spinal stenosis and mild left neural foraminal stenosis. L2-3: Normal endplates. Normal disc height, hydration and morphology. Normal bilateral facet joints. Normal central canal and bilateral lateral recesses. Normal bilateral intervertebral neural foramina. L3-4: Mild ligament flavum hypertrophy. Mild bilobed disc protrusion produces mild spinal stenosis and mild bilateral neural foraminal stenosis. L4-5: Moderate bilateral facet hypertrophy with fluid in the facet joints consistent with instability and moderate ligament flavum hypertrophy. Moderate broad disc protrusion produces moderate spinal stenosis with moderate bilateral lateral recess stenosis with abutment of the L5 nerve roots bilaterally and moderate bilateral neural foraminal stenosis with abutment of the exiting L4 nerve roots bilaterally. L5-S1: Moderate bilateral facet hypertrophy with fluid in the facet joints consistent with instability and moderate ligament flavum hypertrophy. Moderate broad disc protrusion produces moderate spinal stenosis with moderate bilateral lateral recess stenosis with abutment of the S1 nerve roots bilaterally and moderate bilateral neural foraminal stenosis with abutment of the exiting L5 nerve roots bilaterally. Normal visualized sacral ala. 3.2 cm aneurysm of the infrarenal abdominal aorta. MRI/Spine Lumbar (Routine) IMPRESSION: 1. Multilevel degenerative changes, as described above. 2. 3.2 cm abdominal aortic aneurysm. Electronically Signed: Dmitri Comer MD at 17:11 EST ,
[2023-02-23] MEDS: Lidocaine 5% Patch 1 PATCH TOPICAL (08:07)
[2023-02-23] MEDS: amLODIPine 5 MG Tablet PO (08:08)
[2023-02-23] MEDS: Metoprolol Tartrate 25 MG Tablet 12.5 MG PO ×2 (08:08→20:21)
[2023-02-23] MEDS: Losartan Potassium 50 MG Tablet PO (08:08)
[2023-02-23] MEDS: Aspirin E.C. 81 MG Tablet PO (08:08)
[2023-02-23] MEDS: Senna/Docusate Sodium 1 Tablet 2 TABLET PO (08:20)
--- NOTE | 2023-02-23 10:04 | PCM.PN.HOSP ---
Subjective Subjective Doing well, no issues overnight. Continues to have significant back pain imaging does not show any fracture post fall that happened about a week to 10 days ago. He never had any back pain prior to the fall Objective Data Objective Data Vital Signs: Vital Signs Temp Pulse Resp BP Pulse Ox O2 Del Method 98.6 F 65 18 154/80 H 95 Room Air 02/23/23 08:15 02/23/23 08:15 02/23/23 08:15 02/23/23 08:15 02/23/23 08:32 02/23/23 08:32 Oxygen Delivery Method Room Air Weight: 202 lb 15.991 oz Body Mass Index (BMI) 27.5 Intake & Output: Intake and Output for Last 24 Hours 02/22/23 02/23/23 02/24/23 03:59 03:59 03:59 Intake Total 250 / 250 800 / 800 Output Total 800 / 800 1025 / 1025 200 / 200 Balance -550 / -550 -225 / -225 -200 / -200 Lab / Micro Data 02/21/23 06:19 02/21/23 06:19 Physical Exam Narrative General: Alert, Oriented x3, Cooperative, No apparent distress HEENT: Atraumatic, PERRLA, EOMI, Normocephalic Oral: Moist Mucosa Neck: Supple, No JVD Lungs: Clear to auscultation, Normal air movement, No rhonchi, No wheeze, No rales Cardiovascular: Regular rate, Regular Rhythm, Normal S1, Normal S2, No murmurs Abdomen: Soft, Non Tender, Non-Distended, No Hepato-splenomegaly Extremities: No edema, Capillary Refill Less than 3 Seconds Skin: No rashes, No breakdown Musculoskeletal: No Tenderness to Palpation of Joints or Extremities Neurological: Cranial nerves II-XII grossly intact, Motor Exam 5/5 strength throughout, Sensory exam intact to light touch and pain Psych/Mental Status: Normal Affect, Appropriate Assessment & Plan Assessment/Plan (1) Intractable low back pain: PLAN: Plan 1. Intractable low back pain with recent fall, history of recurrent falls, generalized weakness Difficult to determine degree of acute versus chronic back pain for patient. Known history of recurrent falls, uses 4-point walker at home. CT L-spine shows diffuse posterior disc bulge at L4-5, mild lumbar central canal stenosis, multilevel degenerative changes. No previous L-spine imaging. Notably no loss of bowel or bladder function, no radiculopathy. ? Orthopedic surgery following. Patient appears to have DISH on imaging. Okay for MRI L-spine while inpatient, with orthopedic surgery follow-up outpatient. Unfortunately, with patient's ICD he will not be able to have the MRI done until Thursday. Continue lidocaine patch and oxycodone as needed for pain management. PT/OT/case management following, likely home with home health care versus SNF on discharge. 02/23/2023: MRI pending for today continue with pain management 2. Reported presyncopal symptoms; history of CAD s/p CABG, ischemic cardiomyopathy, history of ventricular thrombus Previously followed with Dr. Escobar with cardiology, last office visit in August 2021. History of CABG x 2 in 2017 done at [place]. Last echo in 03/2019 showed persistently decreased EF of 35%, moderate segmental systolic dysfunction, left ventricular apical thrombus. Patient has been on Coumadin since then for the apical thrombus. Had single-chamber ICD placed in 04/2019. Patient reports going out at times without warning. On discussion with patient and family, seems like patient has some lightheadedness and dizziness when going from sitting to standing. Echo on 02/21 showed EF 45%, stage I diastolic dysfunction, large size apical, septal and anteroseptal wall motion abnormality with hypokinesis of the segments; mild improvement from previous. ? Patient denied presyncopal symptoms with getting up to work with PT/OT on 02/21. Have not completed orthostatic vital signs to this point but blood pressure has remained stable throughout admission. Patient with normal sinus rhythm on telemetry, no abnormalities noted. Will hold off on ICD interrogation at this time. Continue all home medications as normal. Recommended to patient that he reestablish with cardiology in the office after discharge. Chronic medical conditions: ? Hypertension: Continue home amlodipine, losartan, Lopressor. ? Hyperlipidemia: Continue home statin. DVT: Coumadin Charges/Coding Visit Charges Inpatient E&M: 41500 Subs Hosp L2
[2023-02-23] MEDS: Atorvastatin Calcium 40 MG Tablet PO (20:21)
[2023-02-24] VITALS (7 sets, daily range): BP systolic 111–138; BP diastolic 65–74; PULSE 60–68; RESP 16–18; TEMP 36.5–36.9; O2SAT 94–96
[2023-02-24] MEDS: Acetaminophen 325 MG Tablet 650 MG PO ×2 (03:05→15:41)
[2023-02-24] MEDS: oxyCODONE 5 MG Tablet PO ×3 (03:05→15:42)
[2023-02-24 06:46] LABS: Absolute Lymphocyte Count 1.64 X10^3/uL (0.83-4.51); Basophil# 0.06 X10^3/uL; Basophil% 0.8 % (0-1); Eosinophil# 0.18 X10^3/uL; Eosinophils% 2.3 % (0-5); Hematocrit 44.7 % (40-54); Hemoglobin 14.7 g/dL (13.0-16.5); Lymphocyte # 1.64 X10^3/ul (0.83-4.51); Lymphocyte % 21.2 % (19-41); Mean Corp Hgb Conc 32.9 g/dL (32-36); Mean Corpuscular Hgb 30.1 pg (27.0-32.0); Mean Corpuscular Volume 91.4 fL (80-94); Mean Platelet Vol. 11.9 fl (6.2-12.0); Monocyte# 0.87 X10^3/uL; Monocyte% 11.2 % (0-10); NRBC Flagged by Analyzer 0 % (0-5); Neutrophil # 4.97 X10^3/uL (2.7-7.7); Neutrophil % 64.2 % (47-70); POSITIVE COUNT YES; Platelet Count 142 K/mm3 (150-450); RBC Distribution Width CV 13.2 % (11.6-14.6); RBC Distribution Width SD 43.9 fl (35.1-43.9); Red Blood Count 4.89 M/mm3 (4.6-6.2); White Blood Count 7.7 K/mm3 (4.4-11.0)
[2023-02-24 06:56] LABS: Anion Gap 6 (5-15); BUN 17 mg/dL (7-18); BUN/Creat Ratio 22.5 RATIO (10-20); Calcium,Total 8.2 mg/dL (8.5-10.1); Chloride 111 mmol/L (98-107); Creatinine, Serum 0.75 mg/dL (0.70-1.30); EST Glomerular Filtration Rate 107 mL/min (>60); Est Glom Filt Rate - Afr Amer 129 mL/min (>60); Glucose 98 mg/dL (74-106); Potassium 3.7 mmol/L (3.5-5.1); Sodium Level 142 mmol/L (136-145)
[2023-02-24 06:59] LABS: International Normalized Ratio 2.8; Prothrombin Time (Protime)PT. 30.2 SECONDS (11.7-14.9)
[2023-02-24 07:37] LABS: Differential Indicated SCAN CRITERIA MET
[2023-02-24 07:38] LABS: Differential Comment SCANNED
[2023-02-24] MEDS: Lidocaine 5% Patch 1 PATCH TOPICAL (09:50)
[2023-02-24] MEDS: Metoprolol Tartrate 25 MG Tablet 12.5 MG PO ×2 (09:58→22:14)
[2023-02-24] MEDS: Losartan Potassium 50 MG Tablet PO (09:58)
[2023-02-24] MEDS: amLODIPine 5 MG Tablet PO (09:58)
[2023-02-24] MEDS: Aspirin E.C. 81 MG Tablet PO (09:59)
[2023-02-24] MEDS: Senna/Docusate Sodium 1 Tablet 2 TABLET PO (10:06)
--- NOTE | 2023-02-24 10:20 | CASEMGMT ---
Discharge Planning A list of?SNF providers including quality and resource use data and consistent with the patient's preferred geographic region, medical needs, and insurance network was created in [employer] Guide.? This list was provided to the SW. Celeste Day Discharge Planning Asst.
--- NOTE | 2023-02-24 10:46 | PCM.PN.HOSP ---
Subjective Subjective Continues to have low back pain, MRI was negative for fracture or anything that would require surgical intervention acutely Objective Data Objective Data Vital Signs: Vital Signs Temp Pulse Resp BP Pulse Ox O2 Del Method 97.9 F 68 17 125/69 H 95 Room Air 02/24/23 09:39 02/24/23 09:58 02/24/23 09:39 02/24/23 09:39 02/24/23 09:39 02/24/23 09:39 Oxygen Delivery Method Room Air Weight: 202 lb 15.991 oz Body Mass Index (BMI) 27.5 Intake & Output: Intake and Output for Last 24 Hours 02/23/23 02/24/23 02/25/23 03:59 03:59 03:59 Intake Total 800 / 800 640 / 640 Output Total 1025 / 1025 725 / 725 500 / 500 Balance -225 / -225 -85 / -85 -500 / -500 Lab / Micro Data 02/24/23 06:16 02/24/23 06:16 Labs: Laboratory Results - last 24 hr 02/24/23 06:16: WBC 7.7, RBC 4.89, Hgb 14.7, Hct 44.7, MCV 91.4, MCH 30.1, MCHC 32.9, RDW Std Deviation 43.9, RDW Coeff of Jil 13.2, Plt Count 142 L, MPV 11.9, Immature Gran % (Auto) 0.300, Neut % (Auto) 64.2, Lymph % (Auto) 21.2, [place] % (Auto) 11.2 H, Eos % (Auto) 2.3, Baso % (Auto) 0.8, Absolute Neuts (auto) 5.0, Absolute Lymphs (auto) 1.64, Nucleated RBC % 0, Differential Comment SCANNED, PT 30.2 H, INR 2.8, Sodium 142, Potassium 3.7, Chloride 111 H, Carbon Dioxide 25.0, Anion Gap 6, BUN 17, Creatinine 0.75, Estim Creat Clear Calc 67.90, Est GFR (MDRD) Af Amer 129, Est GFR (MDRD) Non-Af 107, BUN/Creatinine Ratio 22.5 H, Glucose 98, Calcium 8.2 L Radiography Diagnostic Testing: Radiology Impression Lumbar Spine MRI 02/23/23 06:00 IMPRESSION: 1. Multilevel degenerative changes, as described above. 2. 3.2 cm abdominal aortic aneurysm. Electronically Signed: Dmitri Comer MD at 17:11 EST , Physical Exam Narrative General: Alert, Oriented x3, Cooperative, No apparent distress HEENT: Atraumatic, PERRLA, EOMI, Normocephalic Oral: Moist Mucosa Neck: Supple, No JVD Lungs: Clear to auscultation, Normal air movement, No rhonchi, No wheeze, No rales Cardiovascular: Regular rate, Regular Rhythm, Normal S1, Normal S2, No murmurs Abdomen: Soft, Non Tender, Non-Distended, No Hepato-splenomegaly Extremities: No edema, Capillary Refill Less than 3 Seconds Skin: No rashes, No breakdown Musculoskeletal: No Tenderness to Palpation of Joints or Extremities Neurological: Cranial nerves II-XII grossly intact, Motor Exam 5/5 strength throughout, Sensory exam intact to light touch and pain Psych/Mental Status: Normal Affect, Appropriate Assessment & Plan Assessment/Plan (1) Intractable low back pain: PLAN: Plan 1. Intractable low back pain with recent fall, history of recurrent falls, generalized weakness Difficult to determine degree of acute versus chronic back pain for patient. Known history of recurrent falls, uses 4-point walker at home. CT L-spine shows diffuse posterior disc bulge at L4-5, mild lumbar central canal stenosis, multilevel degenerative changes. No previous L-spine imaging. Notably no loss of bowel or bladder function, no radiculopathy. ? Orthopedic surgery following. Patient appears to have DISH on imaging. Okay for MRI L-spine while inpatient, with orthopedic surgery follow-up outpatient. Unfortunately, with patient's ICD he will not be able to have the MRI done until Thursday. Continue lidocaine patch and oxycodone as needed for pain management. PT/OT/case management following, likely home with home health care versus SNF on discharge. 02/23/2023: MRI pending for today continue with pain management 02/24/2023: MRI is unremarkable, no surgical intervention per orthopedic surgery, will have PT/OT evaluate him possible for SNF placement if he continues to have significant pain otherwise he will need to follow-up with pain management as an outpatient 2. Reported presyncopal symptoms; history of CAD s/p CABG, ischemic cardiomyopathy, history of ventricular thrombus Previously followed with Dr. Escobar with cardiology, last office visit in August 2021. History of CABG x 2 in 2017 done at [place]. Last echo in 03/2019 showed persistently decreased EF of 35%, moderate segmental systolic dysfunction, left ventricular apical thrombus. Patient has been on Coumadin since then for the apical thrombus. Had single-chamber ICD placed in 04/2019. Patient reports going out at times without warning. On discussion with patient and family, seems like patient has some lightheadedness and dizziness when going from sitting to standing. Echo on 02/21 showed EF 45%, stage I diastolic dysfunction, large size apical, septal and anteroseptal wall motion abnormality with hypokinesis of the segments; mild improvement from previous. ? Patient denied presyncopal symptoms with getting up to work with PT/OT on 02/21. Have not completed orthostatic vital signs to this point but blood pressure has remained stable throughout admission. Patient with normal sinus rhythm on telemetry, no abnormalities noted. Will hold off on ICD interrogation at this time. Continue all home medications as normal. Recommended to patient that he reestablish with cardiology in the office after discharge. Chronic medical conditions: ? Hypertension: Continue home amlodipine, losartan, Lopressor. ? Hyperlipidemia: Continue home statin. DVT: Coumadin Charges/Coding Visit Charges Inpatient E&M: 74023 Subs Hosp L2
--- NOTE | 2023-02-24 10:50 | NURSING ---
talked with Uzma in therapy. informed of request by Dr. Long to have both PT/OT see patient, concern for snf needs.
--- NOTE | 2023-02-24 15:10 | CASEMGMT ---
Social Work Chart reviewed and noted therapy evaluations. It appears at this point patient may benefit from continued therapy at discharge, possibly senior care facility level of care. Met with patient in room, introducing to self and social work role, with this conventional underwriter wanting to discuss with patient initial discussions on discharge planning. Acknowledged that patient does not feel good, associating this with potential need for more care, though this conventional underwriter never brought up the word senior care facility. Patient spontaneously voiced that would not be going to any fpc, and voiced this in an intense way. Gently broached with the patient, that this conventional underwriter never used the word fpc, to which the patient admitted a physician was in earlier today and discussed fpc with the patient. Allowed patient time to ventilate, discussing past experiences at a community based facility and feeling as though therapy at that point was not to the level patient needed. After allowing patient time to express thoughts and emotions, this conventional underwriter did inquire whether patient believes would be able to return home feeling the way patient does. Patient agreed that would not feel up to returning home. This conventional underwriter discussed with patient, that unsure when patient is medically ready for discharge, but that it is important to work on a discharge plan. This conventional underwriter did have a list of community senior care facilities, but patient was absolutely adamant would not be going to a community-based nursing facility. Educated patient that hospital does have a skilled transitional care unit, which she is on patient's fpc list of insurance providers. After conversation patient was agreeable to have this conventional underwriter check on hospital connected TCU option. Patient also verbalized that will not be signing anything that people bring in as wants the patient's and daughter to read through, pointing to a paper on the patient's bed bed stand. Patient was pointing to the important message from Medicare. This conventional underwriter explored patient's understanding of the form, which patient was unable to express understanding. This conventional underwriter educated patient that the form is simply the patient's rights as a Medicare patient and that patient has the right to appeal discharge should patient disagree with discharge when this occurs. Reinforced to patient, that patient's signature is simply an acknowledgment that the rights have been provided, and not the patient agreeing to anything. This conventional underwriter validated the patient, that it is patient's right to refuse to sign the form. Throughout conversation patient was intermittently staring at this conventional underwriter in an intense and piercing way, which gave the appearance of the patient being suspicious. At one point in conversation, the patient voiced belief that he has been labeled as a difficult patient because the patient is suspicious. This conventional underwriter also validated the patient in that the patient is allowed to be suspicious and feel however the patient is feeling, to ask questions, but reinforced that staff is trying to help the patient and needs to have conversations such as what this conventional underwriter was having today. This conventional underwriter observed patient's demeanor to relax somewhat, when this conventional underwriter acknowledged the patient's resistance. Therapy into the patient's room, to work with patient so this conventional underwriter left room and indicated social work would be following up with patient at a later time. This conventional underwriter asked if he could call and touch base with the patient's , and the patient agreed. Called patient's Aure to touch base on discharge planning and checking on whether Aure has questions. Initial conversation was met with resistance, as evidenced by Aure being short on the phone with this conventional underwriter and also indicating that did not have a lot of time due to having to be home by 3. Aure also made a comment about why this conventional underwriter was calling. Discussed with Aure that wanted to check-in whether Aure has questions as well as to broach possible need for more care at discharge, and potentially some skilled care. Aure immediately voiced that would not support the patient going into any type of nursing facility, shared unhappiness with experiences at a [facility]. Allowed Aure opportunity to express concerns (such as about the NF reportedly sending the wrong residents medications home with the patient when patient was discharged, then reportedly demanding the family bring the medications right back). Supportive listening offered. Broached with Aure that patient agreed for this conventional underwriter to check in on [facility]'s skilled unit. Aure initially hesitant on this, but then acquiesced indicating that would talk with the patient and would ultimately leave it up to the patient's decision what the patient wanted to do. This conventional underwriter also asked Aure if Aure could bring in the patient's power of real estate associate attorney for healthcare and living will. Aure reports the hospital should have these forms. This conventional underwriter explained that this far unable to find the documents in the medical records. Aure insistent that the hospital should have this. This conventional underwriter agreed to check in again, but then pointedly asked Aure if Aure would be willing to bring the papers and if this conventional underwriter unable to find them. Aure then agreed and asked to be called back if this is the case. This conventional underwriter checked the medical records again and could not find the power of real estate associate attorney for healthcare. Called Aure back and left a voicemail indicating that documents discussed in early your conversation with would need to be brought in. Referral to Karime at [facility] transitional care unit for consideration. Will need to follow back up with patient if TCU was able to accept to ensure that patient is agreeable to this plan. Plan: Home with home health care versus short-term senior care facility. Referral pending with [facility] TCU. -DM Hunt, ATTRACTIONS ASSOCIATE
[2023-02-24] MEDS: 0.9% Saline Lock 10 ML Syringe IV (15:41)
[2023-02-24] MEDS: Atorvastatin Calcium 40 MG Tablet PO (22:14)
[2023-02-25] VITALS (7 sets, daily range): BP systolic 105–138; BP diastolic 68–95; PULSE 64–120; RESP 16–18; TEMP 36.3–36.8; O2SAT 93–98
[2023-02-25] MEDS: oxyCODONE 5 MG Tablet PO ×3 (02:49→21:05)
[2023-02-25 06:59] LABS: International Normalized Ratio 2.4; Prothrombin Time (Protime)PT. 26.6 SECONDS (11.7-14.9)
[2023-02-25] MEDS: Lidocaine 5% Patch 1 PATCH TOPICAL (09:04)
[2023-02-25] MEDS: Acetaminophen 325 MG Tablet 650 MG PO ×2 (09:04→21:04)
[2023-02-25] MEDS: Losartan Potassium 50 MG Tablet PO (09:05)
[2023-02-25] MEDS: Metoprolol Tartrate 25 MG Tablet 12.5 MG PO ×2 (09:05→21:05)
[2023-02-25] MEDS: Aspirin E.C. 81 MG Tablet PO (09:05)
[2023-02-25] MEDS: amLODIPine 5 MG Tablet PO (09:05)
[2023-02-25 11:09] LABS: Bedside Glucose 173 mg/dL (74-106)
--- NOTE | 2023-02-25 11:10 | CASEMGMT ---
Social Work SW met with pt and introduced self and roll of SW. Pt immediatly stating he will not go to a long term. SW validated pt's feelings and discussed TCU at [facility]. Pt is agreeable to short term placement at TCU. Referral made to TCU and they are unable to accept pt. SW met with pt and informed of this. SW also spoke with pt regarding correction in the swing unit at [facility]. Pt does not feel as though he can make a decision without his present. SW will await visit from pt's and speak with pt and regarding dc plan. AUGUST Moore
--- NOTE | 2023-02-25 13:09 | PN.HOSP_ITS ---
Subjective Subjective No issues overnight, pain appears to be improving though he states it still bad he is actually out of bed and ambulating. Has some dizziness though blood pressures are normal and blood sugars are normal at the time of his stated dizziness Objective Data Objective Data Vital Signs: Vital Signs Temp Pulse Resp BP Pulse Ox O2 Del Method 98.3 F 82 18 121/69 H 98 Room Air 02/25/23 10:55 02/25/23 10:55 02/25/23 10:55 02/25/23 10:55 02/25/23 10:55 02/25/23 10:55 Oxygen Delivery Method Room Air Weight: 202 lb 15.991 oz Body Mass Index (BMI) 27.5 Intake & Output: Intake and Output for Last 24 Hours 02/24/23 02/25/23 02/26/23 03:59 03:59 03:59 Intake Total 640 / 640 900 / 900 60 / 60 Output Total 725 / 725 1300 / 1300 200 / 200 Balance -85 / -85 -400 / -400 -140 / -140 Lab / Micro Data 02/24/23 06:16 02/24/23 06:16 Labs: Laboratory Results - last 24 hr 02/25/23 06:01: PT 26.6 H, INR 2.4 02/25/23 10:49: POC Glucose 173 H Physical Exam Narrative General: Alert, Oriented x3, Cooperative, No apparent distress HEENT: Atraumatic, PERRLA, EOMI, Normocephalic Oral: Moist Mucosa Neck: Supple, No JVD Lungs: Clear to auscultation, Normal air movement, No rhonchi, No wheeze, No rales Cardiovascular: Regular rate, Regular Rhythm, Normal S1, Normal S2, No murmurs Abdomen: Soft, Non Tender, Non-Distended, No Hepato-splenomegaly Extremities: No edema, Capillary Refill Less than 3 Seconds Skin: No rashes, No breakdown Musculoskeletal: No Tenderness to Palpation of Joints or Extremities, no significant pain response to palpation of the spine Neurological: Cranial nerves II-XII grossly intact, Motor Exam 5/5 strength throughout, Sensory exam intact to light touch and pain Psych/Mental Status: Normal Affect, Appropriate Assessment & Plan Assessment/Plan (1) Intractable low back pain: PLAN: Plan 1. Intractable low back pain with recent fall, history of recurrent falls, generalized weakness Difficult to determine degree of acute versus chronic back pain for patient. Known history of recurrent falls, uses 4-point walker at home. CT L-spine shows diffuse posterior disc bulge at L4-5, mild lumbar central canal stenosis, multilevel degenerative changes. No previous L-spine imaging. Notably no loss of bowel or bladder function, no radiculopathy. ? Orthopedic surgery following. Patient appears to have DISH on imaging. Okay for MRI L-spine while inpatient, with orthopedic surgery follow-up outpatient. Unfortunately, with patient's ICD he will not be able to have the MRI done until Thursday. Continue lidocaine patch and oxycodone as needed for pain management. PT/OT/case management following, likely home with home health care versus SNF on discharge. 02/23/2023: MRI pending for today continue with pain management 02/24/2023: MRI is unremarkable, no surgical intervention per orthopedic surgery, will have PT/OT evaluate him possible for SNF placement if he continues to have significant pain otherwise he will need to follow-up with pain management as an outpatient 02/25/2023: No change from baseline he is little bit more active today sitting in the chair and walking around his room with a walker 2. Reported presyncopal symptoms; history of CAD s/p CABG, ischemic cardiom yopathy, history of ventricular thrombus Previously followed with Dr. Escobar with cardiology, last office visit in August 2021. History of CABG x 2 in 2017 done at [place]. Last echo in 03/2019 showed persistently decreased EF of 35%, moderate segmental systolic dysfunction, left ventricular apical thrombus. Patient has been on Coumadin since then for the apical thrombus. Had single-chamber ICD placed in 04/2019. Patient reports going out at times without warning. On discussion with patie nt and family, seems like patient has some lightheadedness and dizziness when going from sitting to standing. Echo on 02/21 showed EF 45%, stage I diastolic dysfunction, large size apical, septal and anteroseptal wall motion abnormality with hypokinesis of the segments; mild improvement from previous. ? Patient denied presyncopal symptoms with getting up to work with PT/OT on 02/21. Have not completed orthostatic vital signs to this point but blood pressure has remained stable throughout admission. Patient with normal sinus rhythm on telemetry, no abnormalities noted. Will hold off on ICD interrogation at this time. Continue all home medications as normal. Recommended to patient that he reestablish with cardiology in the office after discharge. Chronic medical conditions: ? Hypertension: Continue home amlodipine, losartan, Lopressor. ? Hyperlipidemia: Continue home statin. DVT: Coumadin Charges/Coding Visit Charges Inpatient E&M: 72143 Subs Hosp L2
--- NOTE | 2023-02-25 14:02 | CASEMGMT ---
Discharge Planning Referral sent to [facility] via [facility]. Celeste Day, Discharge Planning Asst.
--- NOTE | 2023-02-25 14:34 | CASEMGMT ---
Social Work SW met with pt and to discuss discharge planning. Pt and with multiple medical questions. SW redirected pt and to bedside nurse for medical questions. SW updated HORACIO Issa of pt's concerns and questions and Adalgisa to address. SW addressed discharge options and needs. Reviewed option of home with home health and pt's does not feel like she can care for pt in current condition. SW did make a referral to TCU and they are unable to accept at this time. Pt and notified. A list of SNF providers including quality and resource use data and consistent with the patient?s preferred geographic region, medical needs, and insurance network were provided from the [employer] Guide. Pt and would like referrals to [facility] and [facility] for short term rehab. DC school office assistant updated and to send referrals. Plan: [facility] vs. [facility], pending accept and precAUGUST Ellison
[2023-02-25] MEDS: Atorvastatin Calcium 40 MG Tablet PO (21:05)
[2023-02-26] VITALS (7 sets, daily range): BP systolic 109–135; BP diastolic 67–95; PULSE 66–83; RESP 14–18; TEMP 36.4–37.3; O2SAT 93–98
[2023-02-26] MEDS: Acetaminophen 325 MG Tablet 650 MG PO ×3 (03:53→20:41)
[2023-02-26] MEDS: oxyCODONE 5 MG Tablet PO ×4 (03:53→20:41)
[2023-02-26 06:01] LABS: Absolute Neutrophil Count 7.4 X10^3/uL (2.0-7.7); Basophil# 0.09 X10^3/uL; Basophil% 0.9 % (0-1); Eosinophil# 0.16 X10^3/uL; Eosinophils% 1.6 % (0-5); Hematocrit 46.8 % (40-54); Hemoglobin 15.2 g/dL (13.0-16.5); Lymphocyte % 14.5 % (19-41); Mean Corp Hgb Conc 32.5 g/dL (32-36); Mean Corpuscular Hgb 29.7 pg (27.0-32.0); Mean Corpuscular Volume 91.4 fL (80-94); Mean Platelet Vol. 11.4 fl (6.2-12.0); Monocyte# 1.08 X10^3/uL; Monocyte% 10.5 % (0-10); NRBC Flagged by Analyzer 0 % (0-5); Neutrophil # 7.44 X10^3/uL (2.7-7.7); Platelet Count 199 K/mm3 (150-450); RBC Distribution Width SD 43.1 fl (35.1-43.9); Red Blood Count 5.12 M/mm3 (4.6-6.2); White Blood Count 10.3 K/mm3 (4.4-11.0)
[2023-02-26 06:13] LABS: International Normalized Ratio 2.3; Prothrombin Time (Protime)PT. 25.1 SECONDS (11.7-14.9)
[2023-02-26 06:26] LABS: Anion Gap 6 (5-15); BUN 16 mg/dL (7-18); BUN/Creat Ratio 19.8 RATIO (10-20); Calcium,Total 8.4 mg/dL (8.5-10.1); Chloride 111 mmol/L (98-107); Creatinine, Serum 0.81 mg/dL (0.70-1.30); EST Glomerular Filtration Rate 99 mL/min (>60); Est Glom Filt Rate - Afr Amer 119 mL/min (>60); Estimated Creatinine Clearance 83.83 ml/min; Glucose 106 mg/dL (74-106); Potassium 3.9 mmol/L (3.5-5.1); Sodium Level 141 mmol/L (136-145)
[2023-02-26] MEDS: Losartan Potassium 50 MG Tablet PO (09:18)
[2023-02-26] MEDS: Aspirin E.C. 81 MG Tablet PO (09:18)
[2023-02-26] MEDS: Lidocaine 5% Patch 1 PATCH TOPICAL (09:18)
[2023-02-26] MEDS: Metoprolol Tartrate 25 MG Tablet 12.5 MG PO ×2 (09:18→20:37)
[2023-02-26] MEDS: amLODIPine 5 MG Tablet PO (09:18)
--- NOTE | 2023-02-26 10:20 | PN.HOSP_ITS ---
Subjective Subjective Still having low back pain without any neurological disease. States that he still has dizziness, will obtain orthostatics Objective Data Objective Data Vital Signs: Vital Signs Temp Pulse Resp BP Pulse Ox O2 Del Method 97.6 F L 68 14 126/78 H 98 Room Air 02/26/23 09:35 02/26/23 09:35 02/26/23 09:35 02/26/23 09:35 02/26/23 09:35 02/26/23 09:35 Oxygen Delivery Method Room Air Weight: 202 lb 15.991 oz Body Mass Index (BMI) 27.5 Intake & Output: Intake and Output for Last 24 Hours 02/25/23 02/26/23 02/27/23 03:59 03:59 03:59 Intake Total 900 / 900 60 / 60 Output Total 1300 / 1300 200 / 200 200 / 200 Balance -400 / -400 -140 / -140 -200 / -200 Lab / Micro Data 02/26/23 05:30 02/26/23 05:30 Labs: Laboratory Results - last 24 hr 02/25/23 10:49: POC Glucose 173 H 02/26/23 05:30: WBC 10.3, RBC 5.12, Hgb 15.2, Hct 46.8, MCV 91.4, MCH 29.7, MCHC 32.5, RDW Std Deviation 43.1, RDW Coeff of Jil 13.0, Plt Count 199, MPV 11.4, Immature Gran % (Auto) 0.500, Neut % (Auto) 72.0 H, Lymph % (Auto) 14.5 L, [place] % (Auto) 10.5 H, Eos % (Auto) 1.6, Baso % (Auto) 0.9, Absolute Neuts (auto) 7.4, Absolute Lymphs (auto) 1.50, Nucleated RBC % 0, PT 25.1 H, INR 2.3, Sodium 141, Potassium 3.9, Chloride 111 H, Carbon Dioxide 24.0, Anion Gap 6, BUN 16, Creatinine 0.81, Estim Creat Clear Calc 83.83, Est GFR (MDRD) Af Amer 119, Est GFR (MDRD) Non-Af 99, BUN/Creatinine Ratio 19.8, Glucose 106, Calcium 8.4 L Physical Exam Narrative General: Alert, Oriented x3, Cooperative, No apparent distress HEENT: Atraumatic, PERRLA, EOMI, Normocephalic Oral: Moist Mucosa Neck: Supple, No JVD Lungs: Clear to auscultation, Normal air movement, No rhonchi, No wheeze, No rales Cardiovascular: Regular rate, Regular Rhythm, Normal S1, Normal S2, No murmurs Abdomen: Soft, Non Tender, Non-Distended, No Hepato-splenomegaly Extremities: No edema, Capillary Refill Less than 3 Seconds Skin: No rashes, No breakdown Musculoskeletal: No Tenderness to Palpation of Joints or Extremities, no significant pain response to palpation of the spine Neurological: Cranial nerves II-XII grossly intact, Motor Exam 5/5 strength throughout, Sensory exam intact to light touch and pain Psych/Mental Status: Normal Affect, Appropriate Assessment & Plan Assessment/Plan (1) Intractable low back pain: PLAN: Plan 1. Intractable low back pain with recent fall, history of recurrent falls, generalized weakness Difficult to determine degree of acute versus chronic back pain for patient. Known history of recurrent falls, uses 4-point walker at home. CT L-spine shows diffuse posterior disc bulge at L4-5, mild lumbar central canal stenosis, multilevel degenerative changes. No previous L-spine imaging. Notably no loss of bowel or bladder function, no radiculopathy. ? Orthopedic surgery following. Patient appears to have DISH on imaging. Okay for MRI L-spine while inpatient, with orthopedic surgery follow-up outpatient. Unfortunately, with patient's ICD he will not be able to have the MRI done until Thursday. Continue lidocaine patch and oxycodone as needed for pain management. PT/OT/case management following, likely home with home health care versus SNF on discharge. 02/23/2023: MRI pending for today continue with pain management 02/24/2023: MRI is unremarkable, no surgical intervention per orthopedic surger y, will have PT/OT evaluate him possible for SNF placement if he continues to have significant pain otherwise he will need to follow-up with pain management as an outpatient 02/25/2023: No change from baseline he is little bit more active today sitting in the chair and walking around his room with a walker 02/26/2023: Will obtain orthostatic vital signs continue with PT/OT 2. Reported presyncopal symptoms; history of CAD s/p CABG, ischemic cardiomyopathy, history of ventricular thrombus Previously followed with Dr. Escobar with cardiology, last office visit in August 2021. History of CABG x 2 in 2017 done at [place]. Last echo in 03/2019 showed persistently decreased EF of 35%, moderate segmental systolic dysfunction, left ventricular apical thrombus. Patient has been on Coumadin since then for the apical thrombus. Had single-chamber ICD placed in 04/2019. Patient reports going out at times without warning. On discussion with patient and family, seems like patient has some lightheadedness and dizziness when going from sitting to standing. Echo on 02/21 showed EF 45%, stage I diastolic dysfunction, large size apical, septal and anteroseptal wall motion abnormality with hypokinesis of the segments; mild improvement from previous. ? Patient denied presyncopal symptoms with getting up to work with PT/OT on 02/21. Have not completed orthostatic vital signs to this point but blood pressure has remained stable throughout admission. Patient with normal sinus rhythm on telemetry, no abnormalities noted. Will hold off on ICD interrogation at this time. Continue all home medications as normal. Recommended to patient that he reestablish with cardiology in the office after discharge. Chronic medical conditions: ? Hypertension: Continue home amlodipine, losartan, Lopressor. ? Hyperlipidemia: Continue home statin. DVT: Coumadin Charges/Coding Visit Charges Inpatient E&M: 22558 Subs Hosp L2
--- NOTE | 2023-02-26 12:41 | NURSING ---
PAIN 10/10 AFTER ACTIVITY. PAIN MEDS NOT DUE FOR ANOTHER HOUR. DR CATHERINE NOTIFIED
--- NOTE | 2023-02-26 15:04 | CASEMGMT ---
Social Work SW met with pt and updated that [facility] are unable to accept. Pt requesting SW wait until gets in to discuss discharge plan. Pt family arrived. SW met with pt, pt and two children. SW explained that [facility], [facility] are unable to accept. SW reviewed functional ability with therapy and options of home with home health care or SNF. SW redirected pt's family to SNF list left in pt room for review of options. Family with many medical questions and asking to speak with physician. Physician updated. SW encouraged family to make dc decision as this needs to be worked on. Pt's and pt agreeable to referral to [facility]. Children state they are unwilling to make a decision until pt is ready for discharge. With pt permission, referral made to [facility] to check on bed availability and discharge policy per family's concerns. SW will await response from [facility]. AUGUST Rich
[2023-02-26] MEDS: predniSONE 20 MG Tablet 40 MG PO (17:37)
[2023-02-26] MEDS: Atorvastatin Calcium 40 MG Tablet PO (20:37)
[2023-02-27 03:50] VITALS: BP 146/83; PULSE 62; RESP 18; TEMP 36.4; O2SAT 95
[2023-02-27 08:55] VITALS: BP 137/81; PULSE 91; RESP 16; TEMP 37.1; O2SAT 96
[2023-02-27 09:00] VITALS: PULSE 91
[2023-02-27] MEDS: Metoprolol Tartrate 25 MG Tablet 12.5 MG PO ×2 (09:00→20:33)
[2023-02-27] MEDS: amLODIPine 5 MG Tablet PO (09:01)
[2023-02-27] MEDS: oxyCODONE 5 MG Tablet PO ×3 (09:01→23:25)
[2023-02-27] MEDS: Losartan Potassium 50 MG Tablet PO (09:02)
[2023-02-27] MEDS: Aspirin E.C. 81 MG Tablet PO (09:02)
[2023-02-27] MEDS: predniSONE 20 MG Tablet 40 MG PO (09:02)
[2023-02-27] MEDS: Lidocaine 5% Patch 1 PATCH TOPICAL (09:02)
[2023-02-27] MEDS: Acetaminophen 325 MG Tablet 650 MG PO ×3 (09:02→23:25)
[2023-02-27] MEDS: Menthol/Lanolin/Calamine/Znox 113 GM Tube 1 APPLIC TOPICAL ×2 (09:03→20:33)
--- NOTE | 2023-02-27 11:06 | CASEMGMT ---
Social Work SW Met with pt and and and updated that [facility] can accept. After much discussion, pt agreeable to go to [facility] at time of discharge. Pt with medical questions. Nursing aware and has notified physician. [facility] notified to start precert. Plan: [facility], pending precert AUGUST Rich
--- NOTE | 2023-02-27 11:10 | CASEMGMT ---
Discharge Planning Patient has been accepted by [facility]. Updates sent via [employer] and asked for precert to be submitted. Celeste Day, Discharge Planning Asst.
--- NOTE | 2023-02-27 12:43 | PN.HOSP_ITS ---
Subjective Subjective Continues to endorse back pain without any neurological issues. Denies ever having syncope he just has drop attacks but he remains conscious this been going on for more than a year Objective Data Objective Data Vital Signs: Vital Signs Temp Pulse Resp BP Pulse Ox O2 Del Method 98.8 F 91 16 137/81 H 96 Room Air 02/27/23 08:55 02/27/23 09:00 02/27/23 08:55 02/27/23 08:55 02/27/23 08:55 02/27/23 08:55 Oxygen Delivery Method Room Air Weight: 202 lb 15.991 oz Body Mass Index (BMI) 27.5 Intake & Output: Intake and Output for Last 24 Hours 02/26/23 02/27/23 02/28/23 03:59 03:59 03:59 Intake Total 60 / 60 Output Total 200 / 200 200 / 200 250 / 250 Balance -140 / -140 -200 / -200 -250 / -250 Lab / Micro Data 02/26/23 05:30 02/26/23 05:30 Physical Exam Narrative General: Alert, Oriented x3, Cooperative, No apparent distress HEENT: Atraumatic, PERRLA, EOMI, Normocephalic Oral: Moist Mucosa Neck: Supple, No JVD Lungs: Clear to auscultation, Normal air movement, No rhonchi, No wheeze, No rales Cardiovascular: Regular rate, Regular Rhythm, Normal S1, Normal S2, No murmurs Abdomen: Soft, Non Tender, Non-Distended, No Hepato-splenomegaly Extremities: No edema, Capillary Refill Less than 3 Seconds Skin: No rashes, No breakdown Musculoskeletal: No Tenderness to Palpation of Joints or Extremities, no significant pain response to palpation of the spine Neurological: Cranial nerves II-XII grossly intact, Motor Exam 5/5 strength throughout, Sensory exam intact to light touch and pain Psych/Mental Status: Normal Affect, Appropriate Assessment & Plan Assessment/Plan (1) Intractable low back pain: PLAN: Plan 1. Intractable low back pain with recent fall, history of recurrent falls, generalized weakness Difficult to determine degree of acute versus chronic back pain for patient. Known history of recurrent falls, uses 4-point walker at home. CT L-spine shows diffuse posterior disc bulge at L4-5, mild lumbar central canal stenosis, multilevel degenerative changes. No previous L-spine imaging. Notably no loss of bowel or bladder function, no radiculopathy. ? Orthopedic surgery following. Patient appears to have DISH on imaging. Okay for MRI L-spine while inpatient, with orthopedic surgery follow-up outpatient. Unfortunately, with patient's ICD he will not be able to have the MRI done until Thursday. Continue lidocaine patch and oxycodone as needed for pain management. PT/OT/case management following, likely home with home health care versus SNF on discharge. 02/23/2023: MRI pending for today continue with pain management 02/24/2023: MRI is unremarkable, no surgical intervention per orthopedic surgery, will have PT/OT evaluate him possible for SNF placement if he continues to have significant pain otherwise he will need to follow-up with pain management as an outpatient 02/25/2023: No change from baseline he is little bit more active today sitting in the chair and walking around his room with a walker 02/26/2023: Will obtain orthostatic vital signs continue with PT/OT 02/27/2023: Orthostatic vital signs are unremarkable. Initiated prednisone therapy to help with any inflammation awaiting SNF selection and initiation of pre-CERT 2. Reported presyncopal symptoms; history of CAD s/p CABG, ischemic card iomyopathy, history of ventricular thrombus Previously followed with Dr. Escobar with cardiology, last office visit in August 2021. History of CABG x 2 in 2017 done at [place]. Last echo in 03/2019 s howed persistently decreased EF of 35%, moderate segmental systolic dysfunction, left ventricular apical thrombus. Patient has been on Coumadin since then for the apical thrombus. Had single-chamber ICD placed in 04/2019. Patient reports going out at times without warning. On discussion with patient and family, seems like patient has some lightheadedness and dizziness when going from sitting to standing. Echo on 02/21 showed EF 45%, stage I diastolic dysfunction, large size apical, septal and anteroseptal wall motion abnormality with hypokinesis of the segments; mild improvement from previous. ? Patient denied presyncopal symptoms with getting up to work with PT/OT on 02/21. Have not completed orthostatic vital signs to this point but blood pressure has remained stable throughout admission. Patient with normal sinus rhythm on telemetry, no abnormalities noted. Will hold off on ICD interrogation at this time. Continue all home medications as normal. Recommended to patient that he reestablish with cardiology in the office after discharge. Chronic medical conditions: ? Hypertension: Continue home amlodipine, losartan, Lopressor. ? Hyperlipidemia: Continue home statin. DVT: Coumadin Charges/Coding Visit Charges Inpatient E&M: 14429 Subs Hosp L2
--- NOTE | 2023-02-27 16:32 | CASEMGMT ---
Discharge Planning Asst. Unit phone number sent to [facility]. [place] placed on chart. Celeste Day, Discharge Planning Asst.
[2023-02-27 17:14] VITALS: BP 144/76; PULSE 79; RESP 16; TEMP 37.1; O2SAT 98
[2023-02-27 20:30] VITALS: BP 134/77; PULSE 70; RESP 18; TEMP 36.4; O2SAT 97
[2023-02-27 20:33] VITALS: PULSE 70
[2023-02-27] MEDS: Atorvastatin Calcium 40 MG Tablet PO ×2 (20:33)
[2023-02-28 03:37] VITALS: BP 145/89; PULSE 65; RESP 18; TEMP 36.4; O2SAT 97
[2023-02-28] MEDS: oxyCODONE 5 MG Tablet PO ×3 (03:47→15:02)
[2023-02-28 07:55] LABS: International Normalized Ratio 2.9; Prothrombin Time (Protime)PT. 30.4 SECONDS (11.7-14.9)
[2023-02-28] MEDS: Lidocaine 5% Patch 1 PATCH TOPICAL (09:24)
[2023-02-28] MEDS: amLODIPine 5 MG Tablet PO (09:26)
[2023-02-28 09:27] VITALS: BP 158/88; PULSE 97
[2023-02-28] MEDS: Aspirin E.C. 81 MG Tablet PO (09:27)
[2023-02-28] MEDS: Metoprolol Tartrate 25 MG Tablet 12.5 MG PO (09:27)
[2023-02-28] MEDS: predniSONE 20 MG Tablet 40 MG PO (09:27)
[2023-02-28] MEDS: Losartan Potassium 50 MG Tablet PO (09:27)
[2023-02-28 09:35] VITALS: BP 158/88; PULSE 97; RESP 18; TEMP 36.4; O2SAT 94
--- NOTE | 2023-02-28 10:13 | PCM.PN.HOSP ---
Subjective Subjective Doing well, no issues overnight continues to have back pain but steroids seem to be improving little bit Objective Data Objective Data Vital Signs: Vital Signs Temp Pulse Resp BP Pulse Ox O2 Del Method 97.6 F L 97 18 158/88 H 94 Room Air 02/28/23 09:35 02/28/23 09:35 02/28/23 09:35 02/28/23 09:35 02/28/23 09:35 02/28/23 09:37 Oxygen Delivery Method Room Air Weight: 202 lb 15.991 oz Body Mass Index (BMI) 27.5 Intake & Output: Intake and Output for Last 24 Hours 02/27/23 02/28/23 03/01/23 03:59 03:59 03:59 Output Total 200 / 200 750 / 750 300 / 300 Balance -200 / -200 -750 / -750 -300 / -300 Lab / Micro Data 02/26/23 05:30 02/26/23 05:30 Labs: Laboratory Results - last 24 hr 02/28/23 06:23: PT 30.4 H, INR 2.9 Physical Exam Narrative General: Alert, Oriented x3, Cooperative, No apparent distress HEENT: Atraumatic, PERRLA, EOMI, Normocephalic Oral: Moist Mucosa Neck: Supple, No JVD Lungs: Clear to auscultation, Normal air movement, No rhonchi, No wheeze, No rales Cardiovascular: Regular rate, Regular Rhythm, Normal S1, Normal S2, No murmurs Abdomen: Soft, Non Tender, Non-Distended, No Hepato-splenomegaly Extremities: No edema, Capillary Refill Less than 3 Seconds Skin: No rashes, No breakdown Musculoskeletal: No Tenderness to Palpation of Joints or Extremities, no significant pain response to palpation of the spine Neurological: Cranial nerves II-XII grossly intact, Motor Exam 5/5 strength throughout, Sensory exam intact to light touch and pain Psych/Mental Status: Normal Affect, Appropriate Assessment & Plan Assessment/Plan (1) Intractable low back pain: PLAN: Plan 1. Intractable low back pain with recent fall, history of recurrent falls, generalized weakness Difficult to determine degree of acute versus chronic back pain for patient. Known history of recurrent falls, uses 4-point walker at home. CT L-spine shows diffuse posterior disc bulge at L4-5, mild lumbar central canal stenosis, multilevel degenerative changes. No previous L-spine imaging. Notably no loss of bowel or bladder function, no radiculopathy. ? Orthopedic surgery following. Patient appears to have DISH on imaging. Okay for MRI L-spine while inpatient, with orthopedic surgery follow-up outpatient. Unfortunately, with patient's ICD he will not be able to have the MRI done until Thursday. Continue lidocaine patch and oxycodone as needed for pain management. PT/OT/case management following, likely home with home health care versus SNF on discharge. 02/23/2023: MRI pending for today continue with pain management 02/24/2023: MRI is unremarkable, no surgical intervention per orthopedic surgery, will have PT/OT evaluate him possible for SNF placement if he continues to have significant pain otherwise he will need to follow-up with pain management as an outpatient 02/25/2023: No change from baseline he is little bit more active today sitting in the chair and walking around his room with a walker 02/26/2023: Will obtain orthostatic vital signs continue with PT/OT 02/27/2023: Orthostatic vital signs are unremarkable. Initiated prednisone therapy to help with any inflammation awaiting SNF selection and initiation of pre-CERT 02/28/2023: Continue with steroids 2. Reported presyncopal symptoms; history of CAD s/p CABG, ischemic cardiomyopathy, history of ventricular thrombus Previously followed with Dr. Escobar with cardiology, last office visit in August 2021. History of CABG x 2 in 2017 done at [place]. Last echo in 03/2019 showed persistently decreased EF of 35%, moderate segmental systolic dysfunction, left ventricular apical thrombus. Patient has been on Coumadin since then for the apical thrombus. Had single-chamber ICD placed in 04/2019. Patient reports going out at times without warning. On discussion with patient and family, seems like patient has some lightheadedness and dizziness when going from sitting to standing. Echo on 02/21 showed EF 45%, stage I diastolic dysfunction, large size apical, septal and anteroseptal wall motion abnormality with hypokinesis of the segments; mild improvement from previous. ? Patient denied presyncopal symptoms with getting up to work with PT/OT on 02/21. Have not completed orthostatic vital signs to this point but blood pressure has remained stable throughout admission. Patient with normal sinus rhythm on telemetry, no abnormalities noted. Will hold off on ICD interrogation at this time. Continue all home medications as normal. Recommended to patient that he reestablish with cardiology in the office after discharge. Chronic medical conditions: ? Hypertension: Continue home amlodipine, losartan, Lopressor. ? Hyperlipidemia: Continue home statin. DVT: Coumadin Charges/Coding Visit Charges Inpatient E&M: 91629 Subs Hosp L2
--- NOTE | 2023-02-28 12:30 | NURSING ---
recieved call from [facility] intake stating not notification for [facility] that they are secondary to Medicare and patient ok as long has been here for 3 midnights. Talked with ABILIO Wolfe and Dr. Long. pt and significant other in room updated, agreeable to discharge to [facility], anxious for transport time.
--- NOTE | 2023-02-28 13:01 | TREXTCAR_ITS ---
Diet Diet Order/Speech Therapy: 02/20/23 14:16 Diet: Cardiac - Heart Healthy Food consistency:: Regular Liquid Consistency:: Regular/Thin Is pt able to select menu?: Yes Routine Orders/Code Status Routine Lab Work: CBC and BMP Code Status: Full Code Wound(s) b/l knees: Wound Type: Abrasion Therapies Physical Therapy: Eval and Treat Occupational Therapy: Eval and Treat Problem/Diagnosis (1) Intractable low back pain: Status: Acute Code(s): M54.59 - Other low back pain Plan 1. Intractable low back pain with recent fall, history of recurrent falls, generalized weakness Difficult to determine degree of acute versus chronic back pain for patient. Known history of recurrent falls, uses 4-point walker at home. CT L-spine shows diffuse posterior disc bulge at L4-5, mild lumbar central canal stenosis, multilevel degenerative changes. No previous L-spine imaging. Notably no loss of bowel or bladder function, no radiculopathy. ? Orthopedic surgery following. Patient appears to have DISH on imaging. Okay for MRI L-spine while inpatient, with orthopedic surgery follow-up outpatient. Unfortunately, with patient's ICD he will not be able to have the MRI done until Thursday. Continue lidocaine patch and oxycodone as needed for pain management. PT/OT/case management following, likely home with home health care versus SNF on discharge. 02/23/2023: MRI pending for today continue with pain management 02/24/2023: MRI is unremarkable, no surgical intervention per orthopedic surgery, will have PT/OT evaluate him possible for SNF placement if he continues to have significant pain otherwise he will need to follow-up with pain management as an outpatient 02/25/2023: No change from baseline he is little bit more active today sitting in the chair and walking around his room with a walker 02/26/2023: Will obtain orthostatic vital signs continue with PT/OT 02/27/2023: Orthostatic vital signs are unremarkable. Initiated prednisone therapy to help with any inflammation awaiting SNF selection and initiation of pre-CERT 02/28/2023: Continue with steroids 2. Reported presyncopal symptoms; history of CAD s/p CABG, ischemic card iomyopathy, history of ventricular thrombus Previously followed with Dr. Escobar with cardiology, last office visit in August 2021. History of CABG x 2 in 2017 done at [place]. Last echo in 03/2019 s howed persistently decreased EF of 35%, moderate segmental systolic dysfunction, left ventricular apical thrombus. Patient has been on Coumadin since then for the apical thrombus. Had single-chamber ICD placed in 04/2019. Patient reports going out at times without warning. On discussion with patient and family, seems like patient has some lightheadedness and dizziness when going from sitting to standing. Echo on 02/21 showed EF 45%, stage I diastolic dysfunction, large size apical, septal and anteroseptal wall motion abnormality with hypokinesis of the segments; mild improvement from previous. ? Patient denied presyncopal symptoms with getting up to work with PT/OT on 02/21. Have not completed orthostatic vital signs to this point but blood pressure has remained stable throughout admission. Patient with normal sinus rhythm on telemetry, no abnormalities noted. Will hold off on ICD interrogation at this time. Continue all home medications as normal. Recommended to patient that he reestablish with cardiology in the office after discharge. Chronic medical conditions: ? Hypertension: Continue home amlodipine, losartan, Lopressor. ? Hyperlipidemia: Continue home statin. DVT: Coumadin Allergies/Procedures Done in Hospital Allergies No Known Allergies Allergy (Verified 02/20/23 08:57) Procedures: None Type of Care/Length of Stay Estimated LOS: Convalescent Care Less Than 30 days Type of Care Needed: Skilled Rehab Potential: Good Prognosis: Good Additional Orders/Day of Discharge Day of Discharge: 02/28/23 Dietary and Speech Recommendations Dietitian Recommendations/Changes: cardiac diet as tolerated Discharge Plan Admission Admit Date/Time: 02/21/23 18:22 Attending Provider: Ashwin Long Primary Care Provider: Jordy Saucedo Consulting Providers: Rajiv Hwang; Noé Cruz Discharge Orders/Prescriptions Prescriptions: New oxycodone 5 mg Tablet 5 mg PO Q4H PRN PRN (Reason: Pain Score 6-10) 3 Days Qty: 10 0RF prednisone 20 mg Tablet 40 mg PO BREAKFAST 10 Days Qty: 0 0RF Continued aspirin [Adult Aspirin Regimen] 81 mg tablet,delayed release (DR/EC) 81 mg PO DAILY metoprolol tartrate 25 mg tablet 12.5 mg PO BID Qty: 60 atorvastatin 80 mg tablet 40 mg PO MOWEFR Qty: 30 warfarin 5 mg tablet 5 mg PO SUTUTH Qty: 30 nitroglycerin 0.4 mg tablet, sublingual 0.4 mg SUBLINGUAL Q5-15M PRN (Reason: chest pain) Qty: 25 1RF losartan 50 mg tablet 50 mg PO DAILY atorvastatin 80 mg tablet 80 mg PO SUTUTHSA amlodipine 5 mg tablet 5 mg PO DAILY warfarin 5 mg tablet 2.5 mg PO MOWEFRSA Deep Sea Nasal 0.65 % Aerosol,[place] 2 spray NASAL Q4H PRN PRN (Reason: NASAL DRYNESS) Qty: 0 0RF sennosides-docusate sodium [Stool Softener-Stimulant Laxat] 8.6-50 mg Tablet 2 tab PO BID PRN PRN (Reason: Constipation) Qty: 0 0RF lidocaine 5 % Adhesive Patch,Medicated 1 patch topical DAILY Qty: 0 0RF Hold Instructions: Pt has been DC'd Protocol: *Topical Application Instructions APPLICATION INSTRUCTIONS: 12 hours on 12 hours off spironolactone [Aldactone] 25 mg tablet 25 mg PO DAILY Referrals / Follow Up: Jordy Saucedo MD [Primary Care Provider] - Disposition Disposition (needs filled in before D/C Order can be placed): Intermediate Fa [facility]
--- NOTE | 2023-02-28 14:49 | NURSING ---
16:30 meat pickler time per physician's ambulance
--- NOTE | 2023-02-28 14:53 | NURSING ---
emily updated with transport time.
[2023-02-28 15:03] VITALS: BP 135/83; PULSE 75; RESP 18; TEMP 36.6; O2SAT 97
--- NOTE | 2023-02-28 15:22 | NURSING ---
Report called to [facility] Lucy at [phone], pt will be picked up at 16:00.
--- NOTE | 2023-02-28 16:32 | DS.PCM_ITS ---
Providers Date of Admission: 02/21/23 Primary Care Physician: Dr. Jordy Saucedo MD Consultations 02/20/23 14:16 Consult: Orthopedics Routine Consulting Provider: Rajiv Hwang Reason for Consult: acute on chronic severe low back pain EMERGENT Consult: No MD Notified: Yes Date Notified: 02/20/23 Time Notified: 14:58 Method of Notification: Verbal Reason For Visit: INTRACTABLE BACK PAIN, DEBILITY Diagnosis Discharge Diagnosis (1) Intractable low back pain: Status: Acute Code(s): M54.59 - Other low back pain Medications at Discharge Home Medications aspirin 81 mg tablet,delayed release (Adult Aspirin Regimen) 81 mg PO DAILY heart health 10/25/18 metoprolol tartrate 25 mg tablet 12.5 mg PO BID BLOOD PRESSURE #60 tabs 02/22/19 nitroglycerin 0.4 mg sublingual tablet 0.4 mg sublingual Q5-15M PRN chest pain #25 tabs 02/24/19 losartan 50 mg tablet 50 mg PO DAILY BLOOD PRESSURE 12/21/19 atorvastatin 80 mg tablet 40 mg PO MOWEFR cholesterol #30 tabs 08/27/21 warfarin 5 mg tablet 5 mg PO SUTUTH BLOOD THINNER #30 tabs 08/27/21 amlodipine 5 mg tablet 5 mg PO DAILY blood pressure 01/21/22 atorvastatin 80 mg tablet 80 mg PO SUTUTHSA CHOLESTEROL 01/21/22 warfarin 5 mg tablet 2.5 mg PO MOWEFRSA BLOOD THINNER 01/21/22 lidocaine 5 % topical patch 1 patch topical DAILY #0 ea 01/23/22 sennosides 8.6 mg-docusate sodium 50 mg tablet (Stool Softener-Stimulant Laxative) 2 tab PO BID PRN PRN Constipation #0 tabs 01/23/22 sodium chloride 0.65 % nasal spray aerosol (Deep Sea Nasal) 2 spray NASAL Q4H PRN PRN NASAL DRYNESS #0 mL 01/23/22 spironolactone 25 mg tablet (Aldactone) 25 mg PO DAILY unknown 02/24/23 oxycodone 5 mg tablet 5 mg PO Q4H PRN PRN Pain Score 6-10 3 days #10 tabs 02/28/23 prednisone 20 mg tablet 40 mg (2 x 20 mg) PO BREAKFAST 10 days #0 tabs 02/28/23 Hospital Course Operations None Procedures 2-D Echocardiogram Summary of Care Provided Minutes Spent on Discharge: 37 Hospital Course: Per HPI: OSMAN JONES, is a 77 M who presented to [facility] ED on 02/20/2023 with worsening low back pain. Patient seen at bedside, and daughter present. Patient was laying flat in bed, did not move much during our encounter. Patient states that he had a fall onto his tailbone on Thursday and has had worsening low back pain since then. Was so bad this morning that he could not get out of bed without severe pain and family brought him to the ED for further evaluation. Patient states that he continues to have severe low ba ck pain with any movement. He denies any loss of bowel or bladder function. Denies any significant radiation of pain down his legs. Patient has a history of recurrent falls. Uses a 4-point walker at home at baseline. Has been using the walker for about the last year. Patient and family note that he was hospitalized at [facility] around this time last year for a COVID infection and had difficulty working with therapy at that time. He was discharged to [facility] and spent several weeks there before being able to go home. Patient and family state he has small falls at home fairly frequently. Patient denies any history of significant low back pain. Patient does note that with some of these episodes, he feels like he goes out and does not remember what happened. Family is unable to tell me if he actually passes out with these episodes. Patient does have a history of ischemic cardiomyopathy with ICD in place since 2019. Previously followed with Dr. Escobar with cardiology, last saw his office in August 2021. Has been on the same medications at same doses since that time. Patient does seem to report worsening dizziness and lightheadedness when going from sitting to standing at baseline. Patient otherwise denies any recent illnesses. Denies any fevers or chills. Denies any other pain or discomfort at this time. No other acute concerns. Hospital Course: 1. Intractable low back pain with recent fall, history of recurrent falls, generalized weakness Difficult to determine degree of acute versus chronic back pain for patient. Known history of recurrent falls, uses 4-point walker at home. CT L-spine shows diffuse posterior disc bulge at L4-5, mild lumbar central canal stenosis, multilevel degenerative changes. No previous L-spine imaging. Notably no loss of bowel or bladder function, no radiculopathy. ? Orthopedic surgery following. Patient appears to have DISH on imaging. Okay for MRI L-spine while inpatient, with orthopedic surgery follow-up outpatient. Unfortunately, with patient's ICD he will not be able to have the MRI done until Thursday. Continue lidocaine patch and oxycodone as needed for pain management. PT/OT/case management following, likely home with home health care versus SNF on discharge. 02/23/2023: MRI pending for today continue with pain management 02/24/2023: MRI is unremarkable, no surgical intervention per orthopedic surgery, will have PT/OT evaluate him possible for SNF placement if he continues to have significant pain otherwise he will need to follow-up with pain management as an outpatient 02/25/2023: No change from baseline he is little bit more active today sitting in the chair and walking around his room with a walker 02/26/2023: Will obtain orthostatic vital signs continue with PT/OT 02/27/2023: Orthostatic vital signs are unremarkable. Initiated prednisone therapy to help with any inflammation awaiting SNF selection and initiation of pre-CERT 02/28/2023: He received pre-CERT and I discussed with him the plan for discharge and he expressed understanding the risk and benefits of going [facility] and would like to go today. Will continue with pain medications and steroids. Of note he has had multiple direct family members with a diagnosis of NPH and family is concerned if his following issues was due to NPH therefore I do recommend that he follow-up with neurology as an outpatient to have this further investigated however at this time I think the bigger issue is being able to get him ambulatory and therefore we will proceed with discharge to the [facility] for physical therapy. We recommend outpatient monitoring of his PT and INR secondary to being on Coumadin for his history of ventricular thrombus. 2. Reported presyncopal symptoms; history of CAD s/p CABG, ischemic cardiomyopathy, history of ventricular thrombus Previously followed with Dr. Escobar with cardiology, last office visit in August 2021. History of CABG x 2 in 2017 done at [place]. Last echo in 03/2019 showed persistently decreased EF of 35%, moderate segmental systolic dysfunction, left ventricular apical thrombus. Patient has been on Coumadin si nce then for the apical thrombus. Had single-chamber ICD placed in 04/2019. Patient reports going out at times without warning. On discussion with patient and family, seems like patient has some lightheadedness and dizziness when going from sitting to standing. Echo on 02/21 showed EF 45%, stage I diastolic dysfunction, large size apical, septal and anteroseptal wall motion abnormality with hypokinesis of the segments; mild improvement from previous. ? Patient denied presyncopal symptoms with getting up to work with PT/OT on 02/21. Have not completed orthostatic vital signs to this point but blood pressure has remained stable throughout admission. Patient with normal sinus rhythm on telemetry, no abnormalities noted. Will hold off on ICD interrogation at this time. Continue all home medications as normal. Recommended to patient that he reestablish with cardiology in the office after discharge. Chronic medical conditions: ? Hypertension: Continue home amlodipine, losartan, Lopressor. ? Hyperlipidemia: Continue home statin. Weight / BMI Weight Weight: 202 lb 15.991 oz Body Mass Index (BMI) 27.5 ABG / Lab / Microbiology Data 02/26/23 05:30 02/26/23 05:30 Laboratory: Laboratory Results - last 24 hr 02/28/23 06:23: PT 30.4 H, INR 2.9 Microbiology: Microbiology 02/28/23 13:45 Nasal Secretion SARS-CoV-2 Antigen (Rapid) - Final Meaningful Use Info Meaningful Use Diagnoses (Choose all that apply): None applicable Discharge Plan Admission Admit Date/Time: 02/21/23 18:22 Attending Provider: Ashwin Long Primary Care Provider: Jordy Saucedo Consulting Providers: Rajiv Hwang; Noé Cruz Discharge Orders/Prescriptions Prescriptions: New oxycodone 5 mg Tablet 5 mg PO Q4H PRN PRN (Reason: Pain Score 6-10) 3 Days Qty: 10 0RF prednisone 20 mg Tablet 40 mg PO BREAKFAST 10 Days Qty: 0 0RF Continued aspirin [Adult Aspirin Regimen] 81 mg tablet,delayed release (DR/EC) 81 mg PO DAILY metoprolol tartrate 25 mg tablet 12.5 mg PO BID Qty: 60 atorvastatin 80 mg tablet 40 mg PO MOWEFR Qty: 30 warfarin 5 mg tablet 5 mg PO SUTUTH Qty: 30 nitroglycerin 0.4 mg tablet, sublingual 0.4 mg SUBLINGUAL Q5-15M PRN (Reason: chest pain) Qty: 25 1RF losartan 50 mg tablet 50 mg PO DAILY atorvastatin 80 mg tablet 80 mg PO SUTUTHSA amlodipine 5 mg tablet 5 mg PO DAILY warfarin 5 mg tablet 2.5 mg PO MOWEFRSA Deep Sea Nasal 0.65 % Aerosol,Reader 2 spray NASAL Q4H PRN PRN (Reason: NASAL DRYNESS) Qty: 0 0RF sennosides-docusate sodium [Stool Softener-Stimulant Laxat] 8.6-50 mg Tablet 2 tab PO BID PRN PRN (Reason: Constipation) Qty: 0 0RF lidocaine 5 % Adhesive Patch,Medicated 1 patch topical DAILY Qty: 0 0RF Hold Instructions: Pt has been DC'd Protocol: *Topical Application Instructions APPLICATION INSTRUCTIONS: 12 hours on 12 hours off spironolactone [Aldactone] 25 mg tablet 25 mg PO DAILY Referrals / Follow Up: Jordy Saucedo MD [Primary Care Provider] - Disposition Disposition (needs filled in before D/C Order can be placed): [facility]ustodial Facility Charges/Coding Visit Charges Inpatient E&M: 01770 Disch Hosp >30min
== END 2023-02-28 16:39 | disposition skilled nursing facility (03) | DRG 552 ==
LOC: ED 11:18 → MS3 18:34
PROVIDERS: Admitting Provider Hospitalist; Emergency Provider Emergency Medicine; PCP Internal Medicine; Visit Provider Family Medicine
DX: M47.816 Spondylosis without myelopathy or radiculopathy, lumbar region (principal); E78.00 Pure hypercholesterolemia, unspecified; I10 Essential (primary) hypertension; I25.10 Atherosclerotic heart disease of native coronary artery without angina pectoris; I25.5 Ischemic cardiomyopathy; M51.36 Other intervertebral disc degeneration, lumbar region; M48.061 Spinal stenosis, lumbar region without neurogenic claudication; M48.16 Ankylosing hyperostosis [Forestier], lumbar region; G89.29 Other chronic pain; R29.6 Repeated falls; Z79.01 Long term (current) use of anticoagulants; Z79.82 Long term (current) use of aspirin; Z87.891 Personal history of nicotine dependence; Z95.810 Presence of automatic (implantable) cardiac defibrillator
CPT/HCPCS: 36415; 72131; 72148; 80048; 81001; 82962; 85025; 85027; 85610; 87426; 93306; 94668; 97110; 97116; 97162; 97166; 97530; 97535; 97802; 99284; Q9957; A4216; C8929

== ENCOUNTER → 2023-08-18 | Outpatient (CLI) | payer BC, SELFPAY ==
[2023-08-18 11:17] LABS: Prothrombin Time (Protime)PT. 30.6 SECONDS (11.7-14.9)
== END | disposition home or self-care (01) ==
LOC: LAB 10:38
PROVIDERS: PCP Internal Medicine; Visit Provider Internal Medicine
DX: I23.6 Thrombosis of atrium, auricular appendage, and ventricle as current complications following acute myocardial infarction (principal); I25.5 Ischemic cardiomyopathy; Z79.01 Long term (current) use of anticoagulants
CPT/HCPCS: 36415; 85610

== ENCOUNTER → 2023-09-11 | Outpatient (CLI) | payer BC, SELFPAY ==
--- NOTE | 2023-09-11 12:08 | CDU_ITS ---
Reason For Study: DIZZINESS Rt. Velocities/BP Lt. Velocities/BP Prox CCA 75.9/10.7 cm/sec. Prox CCA 78.2/14.5 cm/sec. Mid CCA 55.4/11.0 cm/sec. Mid CCA 87.2/15.7 cm/sec. Dist CCA 51.6/9.1 cm/sec. Dist CCA 72.9/12.4 cm/sec. Prox ICA 58.2/10.0 cm/sec. Prox ICA 52.6/8.7 cm/sec. Mid ICA 55.4/14.7 cm/sec. Mid ICA 63.6/16.4 cm/sec. Dist ICA 74.3/23.2 cm/sec. Dist ICA 82.3/26.3 cm/sec. Rt. ICA/CCA = 74.3/55.4=1.3. Lt. ICA/CCA = 82.3/87.2=0.9. Prox ECA 76.1/8.1 cm/sec. Prox ECA 65.5/9.5 cm/sec. Rt. Vert. 19.4/4.3 cm/sec. Lt. Vert. 40.6/13.1 cm/sec. Right Extracranial There is intimal thickening but no significant atherosclerotic plaque noted in the right common carotid artery. There is heterogeneous, irregular atherosclerotic plaque noted in the right internal carotid artery. There is intimal thickening but no significant atherosclerotic plaque noted in the right external carotid artery. Antegrade flow is noted in the right vertebral artery. Left Extracranial There is homogeneous, smooth atherosclerotic plaque noted in the left common carotid artery. There is homogeneous, smooth atherosclerotic plaque noted in the left internal carotid artery. There is intimal thickening but no significant atherosclerotic plaque noted in the left external carotid artery. Antegrade flow is noted in the left vertebral artery. Procedure Carotid Duplex 13723. Exam performed in department. VL/Carotid Duplex Ultrasound Interpretation Summary Mild (<50%) stenosis right extracranial internal carotid. Mild (<50%) stenosis left extracranial internal carotid. Patent and antegrade vertebrals bilaterally. Ordering Physician: Lenora Oliveira Referring Physician: Jordy Saucedo Performed By: Ammy Sosa RDCS, RVT
== END | disposition home or self-care (01) ==
LOC: CVS 11:58
PROVIDERS: PCP Internal Medicine; Referring Provider Nurse Practitioner Gerontology; Visit Provider Nurse Practitioner Gerontology
DX: R42 Dizziness and giddiness (principal)
CPT/HCPCS: 93880

== ENCOUNTER → 2023-09-15 | Outpatient (CLI) | payer BC, SELFPAY ==
[2023-09-15 10:22] LABS: Prothrombin Time (Protime)PT. 39.6 SECONDS (11.7-14.9)
[2023-09-15 10:32] LABS: International Normalized Ratio 4.1
== END | disposition home or self-care (01) ==
LOC: LAB 09:06
PROVIDERS: PCP Internal Medicine; Visit Provider Internal Medicine
DX: I23.6 Thrombosis of atrium, auricular appendage, and ventricle as current complications following acute myocardial infarction (principal); I25.5 Ischemic cardiomyopathy; Z79.01 Long term (current) use of anticoagulants
CPT/HCPCS: 36415; 85610

== ENCOUNTER → 2023-09-17 | Outpatient (CLI) | payer BC, SELFPAY ==
[2023-09-17 11:21] LABS: International Normalized Ratio 2.3; Prothrombin Time (Protime)PT. 25.1 SECONDS (11.7-14.9)
== END | disposition home or self-care (01) ==
LOC: LAB 08:53
PROVIDERS: PCP Internal Medicine; Visit Provider Internal Medicine
DX: I23.6 Thrombosis of atrium, auricular appendage, and ventricle as current complications following acute myocardial infarction (principal); I25.5 Ischemic cardiomyopathy; Z79.01 Long term (current) use of anticoagulants
CPT/HCPCS: 36415; 85610

== ENCOUNTER → 2023-10-01 | Outpatient (CLI) | payer BC, SELFPAY ==
[2023-10-01 10:58] LABS: International Normalized Ratio 2.7; Prothrombin Time (Protime)PT. 28.9 SECONDS (11.7-14.9)
== END | disposition home or self-care (01) ==
LOC: LAB 08:15
PROVIDERS: PCP Internal Medicine; Visit Provider Internal Medicine
DX: I23.6 Thrombosis of atrium, auricular appendage, and ventricle as current complications following acute myocardial infarction (principal); Z79.01 Long term (current) use of anticoagulants; I25.5 Ischemic cardiomyopathy
CPT/HCPCS: 36415; 85610

== ENCOUNTER → 2023-10-29 | Outpatient (CLI) | payer BC, SELFPAY ==
[2023-10-29 11:56] LABS: International Normalized Ratio 2.7; Prothrombin Time (Protime)PT. 28.1 SECONDS (11.7-14.9)
== END | disposition home or self-care (01) ==
LOC: LAB 08:14
PROVIDERS: PCP Internal Medicine; Visit Provider Internal Medicine
DX: I23.6 Thrombosis of atrium, auricular appendage, and ventricle as current complications following acute myocardial infarction (principal); Z79.01 Long term (current) use of anticoagulants; I25.5 Ischemic cardiomyopathy
CPT/HCPCS: 36415; 85610

== ENCOUNTER → 2023-12-04 | Outpatient (CLI) | payer BC, SELFPAY ==
[2023-12-04 10:30] LABS: International Normalized Ratio 2.7; Prothrombin Time (Protime)PT. 28.6 SECONDS (11.7-14.9)
== END | disposition home or self-care (01) ==
LOC: LAB 09:14
PROVIDERS: PCP Internal Medicine; Visit Provider Internal Medicine
DX: I23.6 Thrombosis of atrium, auricular appendage, and ventricle as current complications following acute myocardial infarction (principal); I25.5 Ischemic cardiomyopathy; Z79.01 Long term (current) use of anticoagulants
CPT/HCPCS: 36415; 85610

== ENCOUNTER → 2024-01-01 | Outpatient (CLI) | payer BC, SELFPAY ==
[2024-01-01 11:03] LABS: International Normalized Ratio 4.2; Prothrombin Time (Protime)PT. 39.9 SECONDS (11.7-14.9)
== END | disposition home or self-care (01) ==
PROVIDERS: PCP Internal Medicine; Visit Provider Internal Medicine
DX: I23.6 Thrombosis of atrium, auricular appendage, and ventricle as current complications following acute myocardial infarction (principal); I25.5 Ischemic cardiomyopathy; Z79.01 Long term (current) use of anticoagulants
CPT/HCPCS: 36415; 85610

== ENCOUNTER → 2024-01-05 | Outpatient (CLI) | payer BC, SELFPAY ==
[2024-01-05 10:47] LABS: International Normalized Ratio 1.3; Prothrombin Time (Protime)PT. 16.2 SECONDS (11.7-14.9)
== END | disposition home or self-care (01) ==
LOC: LAB 08:46
PROVIDERS: PCP Internal Medicine; Visit Provider Internal Medicine
DX: I23.6 Thrombosis of atrium, auricular appendage, and ventricle as current complications following acute myocardial infarction (principal); I25.5 Ischemic cardiomyopathy; Z79.01 Long term (current) use of anticoagulants
CPT/HCPCS: 36415; 85610

== ENCOUNTER → 2024-02-01 | Outpatient (CLI) | payer BC, SELFPAY ==
[2024-02-01 11:51] LABS: International Normalized Ratio 2.6; Prothrombin Time (Protime)PT. 27.8 SECONDS (11.7-14.9)
== END | disposition home or self-care (01) ==
LOC: LAB 09:37
PROVIDERS: PCP Internal Medicine; Visit Provider Internal Medicine
DX: Z79.01 Long term (current) use of anticoagulants (principal)
CPT/HCPCS: 36415; 85610

== ENCOUNTER → 2024-02-29 | Outpatient (CLI) | payer BC, SELFPAY ==
[2024-02-29 10:28] LABS: International Normalized Ratio 3.4; Prothrombin Time (Protime)PT. 34.4 SECONDS (11.7-14.9)
== END | disposition home or self-care (01) ==
LOC: LAB 08:54
PROVIDERS: PCP Internal Medicine; Visit Provider Internal Medicine
DX: I23.6 Thrombosis of atrium, auricular appendage, and ventricle as current complications following acute myocardial infarction (principal); I25.5 Ischemic cardiomyopathy; Z79.01 Long term (current) use of anticoagulants
CPT/HCPCS: 36415; 85610

== ENCOUNTER → 2024-03-14 | Outpatient (CLI) | payer BC, SELFPAY ==
[2024-03-14 11:00] LABS: International Normalized Ratio 3.2; Prothrombin Time (Protime)PT. 33.3 SECONDS (11.7-14.9)
== END | disposition home or self-care (01) ==
PROVIDERS: PCP Internal Medicine; Visit Provider Internal Medicine
DX: I25.5 Ischemic cardiomyopathy (principal); I23.6 Thrombosis of atrium, auricular appendage, and ventricle as current complications following acute myocardial infarction; Z79.01 Long term (current) use of anticoagulants
CPT/HCPCS: 36415; 85610

== ENCOUNTER → 2024-04-04 | Outpatient (CLI) | payer BC, SELFPAY ==
[2024-04-04 11:12] LABS: Prothrombin Time (Protime)PT. 23.2 SECONDS (11.7-14.9)
== END | disposition home or self-care (01) ==
LOC: LAB 10:08
PROVIDERS: PCP Internal Medicine; Visit Provider Internal Medicine
DX: I25.5 Ischemic cardiomyopathy (principal); I23.6 Thrombosis of atrium, auricular appendage, and ventricle as current complications following acute myocardial infarction; Z79.01 Long term (current) use of anticoagulants
CPT/HCPCS: 36415; 85610

== ENCOUNTER → 2024-04-25 | Outpatient (CLI) | payer BC, SELFPAY ==
[2024-04-25 11:12] LABS: International Normalized Ratio 2.6; Prothrombin Time (Protime)PT. 28.3 SECONDS (11.7-14.9)
== END | disposition home or self-care (01) ==
LOC: LAB 10:08
PROVIDERS: PCP Internal Medicine; Visit Provider Internal Medicine
DX: I25.5 Ischemic cardiomyopathy (principal); I23.6 Thrombosis of atrium, auricular appendage, and ventricle as current complications following acute myocardial infarction; Z79.01 Long term (current) use of anticoagulants
CPT/HCPCS: 36415; 85610

== ENCOUNTER → 2024-05-23 | Outpatient (CLI) | payer BC, SELFPAY ==
[2024-05-23 11:17] LABS: International Normalized Ratio 2.1; Prothrombin Time (Protime)PT. 24.1 SECONDS (11.7-14.9)
== END | disposition home or self-care (01) ==
LOC: LAB 09:29
PROVIDERS: PCP Internal Medicine; Visit Provider Internal Medicine
DX: I23.6 Thrombosis of atrium, auricular appendage, and ventricle as current complications following acute myocardial infarction (principal); I25.5 Ischemic cardiomyopathy; Z79.01 Long term (current) use of anticoagulants
CPT/HCPCS: 36415; 85610

== ENCOUNTER → 2024-06-20 | Outpatient (CLI) | payer MEDICARE, BC, SELFPAY ==
[2024-06-20 11:18] LABS: International Normalized Ratio 1.9; Prothrombin Time (Protime)PT. 22.1 SECONDS (11.7-14.9)
== END | disposition home or self-care (01) ==
LOC: LAB 09:53
PROVIDERS: PCP Internal Medicine; Visit Provider Internal Medicine
DX: Z79.01 Long term (current) use of anticoagulants (principal); I23.6 Thrombosis of atrium, auricular appendage, and ventricle as current complications following acute myocardial infarction; I25.5 Ischemic cardiomyopathy
CPT/HCPCS: 36415; 85610

== ENCOUNTER → 2024-07-04 | Outpatient (CLI) | payer MEDICARE, BC, SELFPAY ==
[2024-07-04 10:56] LABS: International Normalized Ratio 2.7; Prothrombin Time (Protime)PT. 29.2 SECONDS (11.7-14.9)
== END | disposition home or self-care (01) ==
LOC: LAB 10:03
PROVIDERS: PCP Internal Medicine; Visit Provider Internal Medicine
DX: I25.5 Ischemic cardiomyopathy (principal); I23.6 Thrombosis of atrium, auricular appendage, and ventricle as current complications following acute myocardial infarction; Z79.01 Long term (current) use of anticoagulants
CPT/HCPCS: 36415; 85610

== ENCOUNTER → 2024-08-02 | Outpatient (CLI) | payer MEDICARE, BC, SELFPAY ==
[2024-08-02 11:01] LABS: International Normalized Ratio 2.8; Prothrombin Time (Protime)PT. 30.3 SECONDS (11.7-14.9)
== END | disposition home or self-care (01) ==
LOC: LAB 09:05
PROVIDERS: PCP Internal Medicine; Visit Provider Internal Medicine
DX: I25.5 Ischemic cardiomyopathy (principal); I23.6 Thrombosis of atrium, auricular appendage, and ventricle as current complications following acute myocardial infarction; Z79.01 Long term (current) use of anticoagulants
CPT/HCPCS: 36415; 85610

== ENCOUNTER → 2024-08-30 | Outpatient (CLI) | payer MEDICARE, BC, SELFPAY ==
[2024-08-30 10:30] LABS: International Normalized Ratio 3.1; Prothrombin Time (Protime)PT. 32.9 SECONDS (11.7-14.9)
== END | disposition home or self-care (01) ==
LOC: LAB 08:28
PROVIDERS: PCP Internal Medicine; Visit Provider Internal Medicine
DX: I23.6 Thrombosis of atrium, auricular appendage, and ventricle as current complications following acute myocardial infarction (principal); I25.5 Ischemic cardiomyopathy; Z79.01 Long term (current) use of anticoagulants
CPT/HCPCS: 36415; 85610

== ENCOUNTER → 2024-09-27 | Outpatient (CLI) | payer MEDICARE, BC, SELFPAY ==
[2024-09-27 10:45] LABS: Prothrombin Time (Protime)PT. 29.0 SECONDS (11.7-14.9)
== END | disposition home or self-care (01) ==
LOC: LAB 08:39
PROVIDERS: PCP Internal Medicine; Visit Provider Internal Medicine
DX: I23.6 Thrombosis of atrium, auricular appendage, and ventricle as current complications following acute myocardial infarction (principal); I25.5 Ischemic cardiomyopathy; Z79.01 Long term (current) use of anticoagulants
CPT/HCPCS: 36415; 85610

== ENCOUNTER 2024-10-24 01:21 | Emergency (ER) | payer MEDICARE, BC, SELFPAY ==
[2024-10-24] VITALS (8 sets, daily range): BP systolic 105–130; BP diastolic 67–76; PULSE 60–68; RESP 15–18; TEMP 36.6–36.7; O2SAT 95–98; BMI 27.1
--- NOTE | 2024-10-24 01:23 | CT_ITS ---
PROCEDURE: STROKE BRAIN/HEAD WITHOUT CONT 10/24/2024 REASON FOR EXAM: NEURO DEFICIT, ACUTE, STROKE SUSPECTED TECHNIQUE: STROKE BRAIN/HEAD WITHOUT CONT Coronal and Sagittal reconstruction series were provided. One or more dose reduction techniques were used (e.g., Automated exposure control, adjustment of the mA and/or kV according to patient size, use of iterative reconstruction technique. RADIATION DOSE SUMMARY: CTDlvol: 44.99 mGy DLP: 829 mGycm COMPARISON: CT scan on 01/21/2022. FINDINGS: Left frontal acute intraparenchymal hematoma measuring 2.5 x 3.2 cm. Left parafalcine acute subdural hematoma measuring 14.7 mm in its maximum thickness. Minimal acute hemorrhagic products are noted in the adjacent frontal sulci on both sides. 3.5 mm midline shift to the right side. Left hemispheric acute subdural hematoma measuring 6.8 mm in its maximum thickness. Left tentorial acute subdural hematoma measuring 8.4 mm in its maximum thickness. Mild diffuse cortical atrophy, commensurate with the patient's age. Scattered hypodense foci in the periventricular and subcortical white matter suggestive of chronic ischemic white matter disease. Normal basal ganglia and thalami. Normal brainstem. Normal cerebellum. Normal calvarium. There is no demonstrated fracture. Normal soft tissue structures. Secretions are noted in the left maxillary sinus. Normal remaining visualized paranasal sinuses. Dr Sterling Quintanilla is aware of the critical findings at 1:[address]/STROKE Brain/Head without Cont IMPRESSION: Left frontal acute intraparenchymal hematoma measuring 2.5 x 3.2 cm. Left parafalcine acute subdural hematoma measuring 14.7 mm in its maximum thick ness. Minimal acute hemorrhagic products are noted in the adjacent frontal sulci on b oth sides. 3.5 mm midline shift to the right side. Left hemispheric acute subdural hematoma measuring 6.8 mm in its maximum thickn ess. Left tentorial acute subdural hematoma measuring 8.4 mm in its maximum thicknes s. Mild diffuse cortical atrophy, commensurate with the patient's age. Scattered hypodense foci in the periventricular and subcortical white matter miles ggestive of chronic ischemic white matter disease. Dr Sterling Quintanilla is aware of the critical findings at 1:44 a.m. EST. Reading Location: [place] [id number]
--- NOTE | 2024-10-24 01:23 | EKG12_ITS ---
Test Reason : STROKE Blood Pressure : */* mmHG Vent. Rate : 65 BPM Atrial Rate : 65 BPM P-R Int : 200 ms QRS Dur : 86 ms QT Int : 400 ms P-R-T Axes : 44 -38 91 degrees QTcB Int : 416 ms Normal sinus rhythm Left axis deviation Minimal voltage criteria for LVH, may be normal variant ( R in aVL ) Abnormal QRS-T angle, consider primary T wave abnormality Abnormal ECG Confirmed by GURJIT MOORE, JENNIFER ([id number]), editor map YECENIA TEMPLE ([id number]) on 10/25/2024 6:13:08 AM Referred By: Confirmed By: JENNIFER CAGLE MD
--- NOTE | 2024-10-24 01:25 | ED.VIS.STROK ---
HPI History of Present Illness Chief Complaint: Stroke Alert Informant: patient and EMS Onset/Context/Timing Onset: Today Timing: Continuous Current Severity: Mild Maximum Severity: Moderate Associated Symptoms Associated Symptoms: Positive for Headache; Negative for Nausea, Vomiting or Chest Pain Narrative Narrative: 78-year-old male history of prior CABG, cardiomyopathy, defibrillator and on the blood thinner Coumadin reportedly. Currently patient is unable to give any history. Reportedly he had a left facial droop at home which is since resolved. He was complaining of headache. His last known well time was 6 PM. He follows limited commands currently he is not speaking. I do not believe this is his baseline. Family called the paramedics. Patient was made a stroke protocol prehospital. 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 Pure hypercholesterolemia Atherosclerotic heart disease of [place] coronary artery without angina pectoris Essential hypertension Home Medications ?Medication ?Instructions ?Recorded ?Last Taken ?Type aspirin 81 mg tablet,delayed 81 mg PO DAILY heart [facility] 10/25/18 2 Days Ago History release (Adult Aspirin Regimen) ~01/19/22 metoprolol tartrate 25 mg tablet 12.5 mg PO BID BLOOD PRESSURE #60 02/22/19 01/20/22 History tabs nitroglycerin 0.4 mg sublingual 0.4 mg sublingual Q5-15M PRN chest 02/24/19 Unknown Rx tablet pain #25 tabs losartan 50 mg tablet 50 mg PO DAILY BLOOD PRESSURE 12/21/19 01/20/22 History atorvastatin 80 mg tablet 40 mg PO MOWEFR cholesterol #30 08/27/21 01/20/22 History tabs atorvastatin 80 mg tablet 80 mg PO SUTUTHSA CHOLESTEROL 01/21/22 01/19/22 History sennosides 8.6 mg-docusate sodium 2 tab PO BID PRN PRN Constipation 01/23/22 Unknown Rx 50 mg tablet (Stool #0 tabs Softener-Stimulant Laxative) sodium chloride 0.65 % nasal spray 2 spray NASAL Q4H PRN PRN NASAL 01/23/22 Unknown Rx aerosol (Deep Sea Nasal) DRYNESS #0 mL spironolactone 25 mg tablet 25 mg PO DAILY unknown 02/24/23 Unknown History (Aldactone) oxybutynin chloride 10 mg 10 mg PO QDAY 09/11/23 Unknown History tablet,extended release 24 hr warfarin 5 mg tablet 5 mg PO .COMPLEX 09/11/23 Unknown History Allergy/AdvReac Type Severity Reaction Status Date / Time No Known Allergies Allergy Verified 10/24/24 01:22 Family History Father AAA (abdominal aortic aneurysm, ruptured), Onset Age: 89 Mother Myocardial infarction Sudden cardiac , Onset Age: 80 Brother Hypertension Surgical History Hx of colonoscopy Hx of angioplasty Presence of implantable cardioverter-defibrillator (ICD) (~04/14/19) History of shoulder surgery History of appendectomy History of tonsillectomy History of coronary artery bypass surgery (~10/31/16) Social History Smoking Status: Former smoker how long ago did patient quit smokin alcohol intake: never substance use type: does not use caffeine: Yes Type: coffee Number of servings: 1 what type of physical activity do you participate in: none frequency: does not exercise ROS ROS ED ROS Narrative Unknown patient not speaking. Reportedly had a headache. Review of Systems ROS Unobtainable: due to mental status EXAM Physical Exam Narrative Exam Narrative: 70-year-old male sitting upright in the EMS cot. Met in the ambulance bay. H EENT exam pupils round react light. Extra motions are intact. No facial droop. Currently he is not talking. Neck nontender. No lymphadenopathy. Lungs clear to auscultation bilaterally. Heart regular rhythm rate about 80 no murmur. Chest wall ribs nontender. Abdomen soft nontender. Nondistended. No peritoneal signs. Extremities nontender no edema. He does soda fountain manager my hands when I ask him to is equal and symmetrical. He does do dorsi and plantarflexion. Neurologically he is awake. His eyes are open. Currently there is no facial droop. He is following only limited commands. He is not speaking at all. Const Vital Signs: 10/24/24 01:22 10/24/24 01:22 10/24/24 01:23 Temperature 98 F Temperature Source Temporal Pulse Rate 60 68 Respiratory Rate 16 16 Blood Pressure 124/76 H Blood Pressure Mean 92 Pulse Ox 98 98 95 Oxygen Delivery Method Room Air Room Air Room Air 10/24/24 01:23 10/24/24 01:41 10/24/24 01:56 Temperature Temperature Source Pulse Rate 65 63 66 Respiratory Rate 18 18 Blood Pressure 124/76 H 128/70 H 128/70 H Blood Pressure Mean 92 89 89 Pulse Ox 98 98 Oxygen Delivery Method Room Air Room Air 10/24/24 02:11 10/24/24 02:15 Temperature Temperature Source Pulse Rate 65 65 Respiratory Rate 15 15 Blood Pressure 125/67 H 130/67 H Blood Pressure Mean 86 88 Pulse Ox 97 95 Oxygen Delivery Method Room Air Room Air Positive well nourished and well developed; Negative for obese, cachectic, contractures or unkempt General Appearance ED: well developed; Negative for unkempt, cachectic, contractures or NAD Nutritional Appearance: Negative for cachectic or obese HEENT Reports moist mucous membranes atraumatic; Negative for trauma Eyes PERRL and EOMs intact bilaterally Neck no lymphadenopathy, supple and no JVD Chest Wall inspection of chest normal and palpation of chest normal Resp normal respiratory effort and clear to auscultation bilaterally Cardio no murmurs Rate: regular rate Rhythm: regular rhythm GI normal to inspection, nondistended, normoactive bowel sounds, soft to palpation, non-tender, non-distended and no masses Palpation: Negative for tender, guarding or rebound tenderness present Back/Spine no CVA tenderness Extremity normal to inspection General Extremety ED: Negative for deformity, edema or tenderness General Extremity: Negative for deformity or edema Neuro Neuro Narrative: Patient not speaking. Follows limited commands. Cannot assess his speech. No obvious facial droop. He does do soda fountain manager strength bilaterally and dorsi and plantarflexion. He will not raise his arms or legs and do drift. Sensorium / Orientation: alert and oriented to person Psych mental status grossly normal Appearance: Negative for unkempt Skin no wounds General Skin Exam: Negative for jaundice Lesions: no lesions Rashes: no rashes Trauma: Negative for abrasion or laceration MDM MDM MDM Narrative Medical decision making narrative: 78-year-old male currently unable to speak but is manage stroke protocol prehospital when I assessed him immediately on arrival he was taken to CAT scan. He has a moderate to large intracranial bleed. Patient is on Coumadin due to cardiac disease. His INR is 4.1. He will be treated both with Kcentra and vitamin K. We have already spoken to [facility] and he will be life flighted to their facility. His did arrive shortly after his arrival she is comfortable with the plan. She has been told of his diagnosis and our treatment plan. Further history from the patient had a fall around . He initially told her that he did not hit his head. She believes that he may have bumped his head. But he had no LOC. There is no signs of trauma or tenderness to his scalp. I discussed with the patient's transfer options. They have a family member that is a nurse at a [facility] and family lives in [place]. She is comfortable with that. [facility] currently are limited on their bed availability also. Prior to transfer at 2:23 AM patient is awake. He is alert. He is protecting his airway. We discussed his case with the [facility] staff. They are assessing him before they transfer him. He is currently stable. History & Record Review Discussion w/independent historian: EMS personnel and Family Additional record(s) reviewed:: Prior inpatient record, Prior outpatient record, Prior ED visit and Prior labs Lab Data Attestation: I reviewed the patient's lab results. Lab results narrative: CBC shows a white count 9.2. H&H of [address] of the brain without contrast shows a moderate-sized to large intracranial bleed. PTT is 48 and INR is 4.1. PTT is 47.2. Troponin is 12. Labs: Laboratory Results - last 24 hr 10/24/24 10/24/24 01:20 01:58 WBC 11.2 H RBC 4.88 Hgb 15.1 Hct 44.1 MCV 90.4 MCH 30.9 MCHC 34.2 RDW Std Deviation 43.3 RDW Coeff of Jil 13.2 Plt Count 186 MPV 11.6 Immature Gran % (Auto) 0.400 Neut % (Auto) 82.9 H Lymph % (Auto) 8.0 L [place] % (Auto) 8.0 Eos % (Auto) 0.3 Baso % (Auto) 0.4 Absolute Neuts (auto) 9.3 H Absolute Lymphs (auto) 0.90 Nucleated RBC % 0 PT 40.3 H INR 4.1 H* APTT 47.2 H Sodium Cancelled 138 Potassium Cancelled 3.9 Chloride Cancelled 104 Carbon Dioxide Cancelled 22.2 Anion Gap Cancelled 12 BUN Cancelled 15 Creatinine Cancelled 0.93 Estim Creat Clear Calc 71.85 Est GFR (MDRD) Non-Af Cancelled 84 BUN/Creatinine Ratio Cancelled 16.4 Glucose Cancelled 136 H Calcium Cancelled 9.3 Troponin T High Sens 12 Radiography Diagnostic Testing: Clinical Impression(s) from Imaging Studies Brain CT 10/24/24 01:23 IMPRESSION: Left frontal acute intraparenchymal hematoma measuring 2.5 x 3.2 cm. Left parafalcine acute subdural hematoma measuring 14.7 mm in its maximum thickness. Minimal acute hemorrhagic products are noted in the adjacent frontal sulci on both sides. 3.5 mm midline shift to the right side. Left hemispheric acute subdural hematoma measuring 6.8 mm in its maximum thickness. Left tentorial acute subdural hematoma measuring 8.4 mm in its maximum thickness. Mild diffuse cortical atrophy, commensurate with the patient's age. Scattered hypodense foci in the periventricular and subcortical white matter suggestive of chronic ischemic white matter disease. Dr Sterling Quintanilla is aware of the critical findings at 1:44 a.m. EST. Reading Location: [place] [id number] Rhythm Strip Rhythm Strip: Sinus Rhythm Rate: 65 Ectopy: None EKG Initial EKG: Attestation: I personally reviewed and interpreted this EKG as follows: Interpretation: Sinus Rhythm and No Acute Injury Pattern Comments: Normal sinus rhythm rate of 65 no acute signs of NV or ischemia. No dysrhythmia. Critical Care Time Critical Care Time: Yes Critical care time (excluding procedures): 30-74 minutes, Including time spent:, Discussing w/Patient &/or Family/Reclamation Kettle Tender, Discussing w/Consultants, Arranging Admission or Transfer, Performing Direct Patient Care at Bedside and - (35 minutes.) Discharge Plan Triage Chief Complaint: Stroke Alert ED Provider: Sterling Quintanilla Dx/Rx/DC Orders Clinical Impression: Intracranial bleed, Hx of coronary artery bypass graft, Chronic anticoagulation, Headache, Cerebrovascular accident, hemorrhagic, History of cardiomyopathy, Acute subdural hematoma Prescriptions: No Action aspirin [Adult Aspirin Regimen] 81 mg tablet,delayed release (DR/EC) 81 mg PO DAILY metoprolol tartrate 25 mg tablet 12.5 mg PO BID Qty: 60 atorvastatin 80 mg tablet 40 mg PO MOWEFR Qty: 30 nitroglycerin 0.4 mg tablet, sublingual 0.4 mg SUBLINGUAL Q5-15M PRN (Reason: chest pain) Qty: 25 1RF losartan 50 mg tablet 50 mg PO DAILY oxybutynin chloride 10 mg tablet extended release 24hr 10 mg PO QDAY warfarin 5 mg tablet 5 mg PO .COMPLEX Rx Instructions: 5 mg orally QS//; 2.5mg all other days atorvastatin 80 mg tablet 80 mg PO SUTUTHSA Deep Sea Nasal 0.65 % Aerosol,[place] 2 spray NASAL Q4H PRN PRN (Reason: NASAL DRYNESS) Qty: 0 0RF sennosides-docusate sodium [Stool Softener-Stimulant Laxat] 8.6-50 mg Tablet 2 tab PO BID PRN PRN (Reason: Constipation) Qty: 0 0RF spironolactone [Aldactone] 25 mg tablet 25 mg PO DAILY Primary Care Provider: Jordy Saucedo Referrals: Jordy Saucedo MD [Primary Care Provider] - Print Language: [place] Disposition Disposition: Acute Care Hospital Discharge [facility]: [facility] Neurosurgery NIHSS NIHSS 1a. Level of Consciousness: 0 - Alert; keenly responsive 1b. LOC Questions: 2 - Answers NEITHER question correctly (Not speaking does not answer either question.) 2. Best Gaze: 0 - Normal 4. Facial Palsy: 0 - Normal symmetrical movements Total: 2 Stroke Questions Stroke Team Activated: Yes Reviewed Inclusion/Exclusion criteria: Yes IV Thrombolytic Administered: No No contraindications from thrombolytic administration: No (Patient on Coumadin with intracranial bleed.)
[2024-10-24 01:33] LABS: Hematocrit 44.1 % (40-54); Hemoglobin 15.1 g/dL (13.0-16.5); Immature Granulocytes Count 0.040 X10^3/uL (0.0-0.0); Mean Corp Hgb Conc 34.2 g/dL (32-36); Mean Corpuscular Volume 90.4 fL (80-94); Mean Platelet Vol. 11.6 fl (6.2-12.0); NRBC Flagged by Analyzer 0 % (0-5); Platelet Count 186 K/mm3 (150-450); RBC Distribution Width CV 13.2 % (11.6-14.6); RBC Distribution Width SD 43.3 fl (35.1-43.9); Red Blood Count 4.88 M/mm3 (4.6-6.2); White Blood Count 11.2 K/mm3 (4.4-11.0)
--- OUTSIDE RECORDS SUMMARY | 2024-10-24 01:35 | XMS RPT_ITS | CCD ---
Author Organization [facility] Care Team Providers Care High Density Talc Coater Operator Name Role Phone DAO PARRY Unavailable Unavailable JORDY SAUCEDO Unavailable Unavailable DAO PARRY Unavailable Unavailable JORDY SAUCEDO Unavailable Unavailable SAFIA PICKARD Unavailable Unavailabl DAO De La Rosa Unavailable Unavailable ELLA LEVIN Unavailable Unavailable LEONA MESSER Unavailable Unavailable ELLA LEVIN Unavailable Unavailable JORDY SAUCEDO Unavailable Unavailable DOMINGUEZ MAYO Attending Unavailable DOMINGUEZ MAYO Referring Unavailable Jordy Saucedo Primary Care Unavailable SABRINA CORREA Attending Unavailable IMCA Referring Unavailable Jordy Saucedo Primary Care Unavailable SABRINA CORREA Attending Unavailable ERNIE GARCIA Referring Unavailable Jordy Saucedo MD Primary Care Provider 13, Pharmacist Unavailable Jordy Saucedo MD Primary Care Provider 13, Pharmacist Unavailable Dr. Jordy Saucedo Primary Care Provider Dr. Jordy Saucedo Referring Provider Dr. Chacorta Escobar Attending Provider Maribel Mata Attending Provider Unavailable Dr. Ishaan Mazariegos Emergency Provider Dr. Osman Wilkerson Attending Provider Unavailable Dr. Osman Wilkerson Admit Provider Unavailable Dr. Osman Wilkerson Other Provider Unavailable Jordy Saucedo MD Primary Care Provider 13, Pharmacist Unavailable Dr. Jordy Saucedo Primary Care Provider MD Caesar Andrew Emergency Provider Anthony, Dr. Umanzor Admit Provider Dr. Noé Cruz Other Provider Dr. Rajiv Hwang Other Provider Dr. Vadim Millan Attending Provider Dr. Ashwin Long Referring Provider Dr. Pearl Marinelli Attending Provider Anthony, Dr. Umanzor Attending Provider Dr. Ashwin Long Attending Provider Dr. Ashwin Long Other Provider Lewis MOORE, Jordy Brush Primary Care Provider Dr. Jordy Saucedo Primary Care Provider Lewis, Dr. Spence Referring Provider Ambrocio, Dr. Beltran Attending Provider Nga TO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, Edith M Unavailable Lewis MOORE, Dr. Spence Primary Care Provider Lewis MOORE, Dr. Spence Attending Provider Dr. Devin Albrecht MD Attending Provider Lewis MOORE, Dr. Spence Primary Care Provider Lewis MOORE, Dr. Spence Attending Provider Ambrocio MOORE, Dr. Beltran Attending Provider Lewis MOORE, Dr. Spence Primary Care Provider Lewis MOORE, Dr. Spence Attending Provider Ambrocio MOORE, Dr. Beltran Referring Provider Lewis MOORE, Dr. Spence Primary Care Provider Lewis MOORE, Dr. Spence Attending Provider Lewis MOORE, Dr. Spence Primary Care Provider Ambrocio MOORE, Dr. Beltran Attending Provider LEWIS, ROSANNE Referring Unavailable SAUCEDO, ROSANNE Primary Care Unavailable SAUCEDO, ROSANNE Attending Unavailable SAUCEDO, ROSANNE Primary Care Unavailable BEBETO BALLESTEROS Attending Unavailable SAUCEDO, ROSANNE Primary Care Unavailable SAUCEDO, ROSANNE Attending Unavailable SAUCEDO, ROSANNE Primary Care Unavailable Lewis MOORE, Dr. Spence Primary Care Provider Lewis MOORE, Dr. Spence Attending Provider Lewis, Jordy Primary Care Unavailable Ambrocio, Devin Attending Unavailable AmbrocioDevin Attending Unavailable Saucedo, Jordy Primary Care Unavailable Saucedo, Jordy Primary Care Unavailable Saucedo, Jordy Attending Unavailable Saucedo, Jordy Primary Care Unavailable Saucedo, Jordy Attending Unavailable Saucedo, Jordy Attending Unavailable Saucedo, Jordy Primary Care Unavailable Saucedo, Jordy Attending Unavailable Saucedo, Jordy Primary Care Unavailable Saucedo, Jordy Attending Unavailable Saucedo, Jordy Primary Care Unavailable AmbrocioDevin Attending Unavailable Saucedo, Jordy Primary Care Unavailable AmbrocioDevin Attending Unavailable Saucedo, Jordy Primary Care Unavailable Saucedo, Jordy Primary Care Unavailable Saucedo, Jordy Attending Unavailable Saucedo, Jordy Primary Care Unavailable Saucedo, Jordy Attending Unavailable Saucedo, Jordy Primary Care Unavailable Saucdeo, Jordy Attending Unavailable Saucedo, Jordy Attending Unavailable Saucedo, Jordy Primary Care Unavailable Saucedo, Jordy Primary Care Unavailable Saucedo, Jordy Attending Unavailable Saucedo, Jordy Attending Unavailable Saucedo, Jordy Primary Care Unavailable Saucedo, Jordy Primary Care Unavailable Saucedo, Jordy Attending Unavailable Saucedo, Jordy Attending Unavailable Saucedo, Jordy Primary Care Unavailable Saucedo, Jordy Attending Unavailable Saucedo, Jordy Primary Care Unavailable Saucedo, Jordy Attending Unavailable Saucedo, Jordy Primary Care Unavailable AmbrocioDevin Referring Unavailable Allergies Allergy Classification Reported Allergen(s) Allergy Type Date of Onset Reaction(s) Facility (20 sources) Lisinopril; Translations: [LISINOPRIL] Drug Allergy 01-05-2019 Cough [facility] Work Phone: Medications Current Medications Medication Drug Class(es) Dates Sig (Normalized) Sig (Original) aspirin 81 mg delayed release oral tablet (20 sources) Platelet Aggregation Inhibitor, Nonsteroidal Anti-inflammatory Drug Start: 11-16-2008 take 1 tablet by mouth once daily Aspirin (Adult Aspirin Regimen) 81 mg tablet,delayed release (DR/EC) Active 81 mg PO DAILY October 25, 2018 12:00am heart health Comment on above: Take one(1) tablet d aily. atorvastatin 80 mg oral tablet (20 sources) HMG-CoA Reductase Inhibitor Start: 08-27-2021 Atorvastatin 80 mg tablet Active 40 mg PO MOWEFR 30 0 August 27, 2021 11:35am cholesterol Start: 08-27-2021 Atorvastatin A ctive 40 MG PO MOWEFR 30 August 27, 2021 10:35am Start: 10-25-2018 End: 02-08-2025 take 1 tablet by mouth at bedtime Atorvastatin 80 mg tablet Discontinued 80 mg PO AT BEDTIME 30 0 February 22, 2019 1:02pm August 27, 2021 11:39am Start: 10-25-2018 End: 02-22-2019 Atorvastatin 80 mg tablet Discontinued PO 30 0 October 25, 2018 12:00am February 22, 2019 1:03pm Comment on above: Take 1 tablet by once daily. Takes 1/2 tab Thu, Thu & Thursday. 1 tab rest of days carbidopa 25 mg / levodopa 100 mg oral tablet (20 sources) Aromatic Amino Acid Decarboxylation Inhibitor, Aromatic Amino Acid Start: 08-12-2024 carbidopa-levodopa (SINEMET) 25-100 mg per tablet Indications: Parkinsonism, unspecified Parkinsonism type (HCC) Take one(1) tablet daily at bedtime as needed. Restless legs. 08/12/2024 Active Start: 09-25-2023 End: 08-12-2024 take 2 tablets by mouth three times daily carbidopa-levodopa (SINEMET) 25-100 mg per tablet Indications: Parkinsonism, unspecified Parkinsonism type (HCC) Take 2 tablets by mouth three times a day. 180 tablet 5 09/25/2023 08/12/2024 Discontinued cholecalciferol, vitamin D3, (VITAMIN D3 ORAL) (20 sources) cholecalciferol, vitamin D3, (VITAMIN D3 ORAL) Take by mouth. Active cholecalciferol, vitamin D3, (VITAMIN D3 ORAL) Take by mouth. 0 Active docusate sodium 50 mg / sennosides, long-term 8.6 mg oral tablet (9 sources) Start: 01-23-2022 Sennosides-Docusate Sodium (Stool Softener-Stimulant Laxat) 8.6-50 mg Tablet Active 2 {tbl} PO TWICE DAILY NEEDED as needed for Constipation 0 0 January 23, 2022 1:00am losartan potassium 50 mg oral tablet (20 sources) Angiotensin 2 Receptor Elise Start: 12-21-2019 End: 07-22-2024 take 1 tablet by mouth once daily losartan (COZAAR) 50 mg tablet Indications: Essential hypertension Take 1 tablet by mouth once daily. 90 tablet 07/25/2024 Active Start: 10-14-2019 End: 12-21-2019 Losartan 100 mg tablet Disco ntinued 50 mg PO DAILY October 14, 2019 10:18am December 21, 2019 8:36am Start: 10-14-2019 End: 12-21-2019 take 50 mg by mouth once daily Losartan Discontinued 5 0 MG PO DAILY October 14, 2019 9:18am December 21, 2019 7:36am Start: 03-28-2019 End: 10-14-2019 Losartan 100 mg tablet Disco ntinued 50 mg PO TWICE A DAY March 28, 2019 4:00pm October 14, 2019 10:18am Start: 03-28-2019 End: 10-14-2019 take 50 mg by mouth twice daily Losartan Discontinued 50 MG PO TWICE A DAY March 28, 2019 3:00pm October 14, 2019 9:18am Start: 02-22-2019 End: 03-28-2019 take 1 tablet by mouth once daily Losartan 100 mg tablet Discontinued 100 mg PO DAILY February 22, 2019 1:00am March 28, 2019 4:10pm Comment on above: Take 1 tablet by grover once daily. metoprolol tartrate 25 mg oral tablet (20 sources) beta-Adrenergic Elise Start: 07-25-2024 take 0.5 tablet by mouth twice daily metoprolol tartrate, short acting, (LOPRESSOR) 25 mg tablet Indications: Essential hypertension Take 0.5 tablets by mouth two times a day. 90 tablet 07/25/2024 Active Start: 05-08-2022 End: 07-22-2024 take 0.5 tablet by mouth twice daily metoprolol tartrate, short acting, (LOPRESSOR) 25 mg tablet Indications: Essential hypertension Take 0.5 tablets by mouth two times a day. 90 tablet 3 07/28/2023 07/22/2024 Discontinued Start: 04-03-2021 End: 05-06-2022 take 0.5 tablet by mouth twice daily metoprolol tartrate, short acting, (LOPRESSOR) 25 mg tablet Indications: Essential hypertension Take 0.5 tablets by mouth twice daily. 90 tablet 3 04/03/2021 05/06/2022 Discontinued Start: 02-22-2019 Metoprolol Tar trate 25 mg tablet Active 12.5 mg PO TWICE A DAY 60 0 February 22, 2019 1:02pm BLOOD PRESSURE Start: 02-22-2019 take 12.5 mg by mout h twice daily Metoprolol Tartrate Active 12.5 MG PO TWICE A DAY 60 February 22, 2019 12:02pm Start: 10-25-2018 End: 02-22-2019 Metoprolol Tartrate 25 mg ta blet Discontinued PO 60 0 October 25, 2018 12:00am February 22, 2019 1:03pm Start: 10-25-2018 End: 02-22-2019 Metoprolol Tartrate Disconti nued PO 60 October 24, 2018 11:00pm February 22, 2019 12:03pm Comment on above: Take 0.5 tablets by mouth twice daily. 24 hr oxybutynin chloride 10 mg extended release oral tablet (17 sources) Cholinergic Muscarinic Antagonist Start: 07-31-2023 End: 10-23-2023 take 1 tablet by mouth once daily Oxybutynin Chloride 10 mg tablet extended release 24hr Active 10 mg PO daily September 11, 2023 12:00am sodium chloride 0.111 meq/ml nasal spray (9 sources) Start: 01-23-2022 Sodium Chloride ([place] Nasal) 0.65 % Aerosol,[place] Active 2 NMA NASAL EVERY 4 HOURS NEEDED as needed for NASAL DRYNESS 0 0 January 23, 2022 1:00am Start: 01-23-2022 Sodium Chlorid e ([place] Nasal) 0.65 % Aerosol,[place] Active 2 SPRAY NASAL EVERY 4 HOURS NEEDED 0 January 23, 2022 12:00am spironolactone 25 mg oral tablet (20 sources) Aldosterone Antagonist Start: 05-02-2021 End: 07-22-2024 take 1 tablet by mouth once daily spironolactone (ALDACTONE) 25 mg tablet Indications: Ischemic cardiomyopathy Take 1 tablet by mouth once daily. Dr. Escobar 90 tablet 07/25/2024 Active Comment on above: Take 1 tablet by grover th once daily. Dr. Escobar warfarin sodium 5 mg oral tablet (20 sources) Vitamin K Antagonist Start: 09-11-2023 Warfarin 5 mg tablet Active 5 mg PO .COMPLEX September 11, 2023 12:00am 5 mg orally QSu//; 2.5mg all other days Start: 05-08-2022 End: 03-14-2024 warfarin (COUMADIN) 5 mg tab let Take 5 mg every Sun, Tue, Swapna; 2.5 mg all other days or as directed by [facility] 60 tablet 5 03/14/2024 Active Start: 01-21-2022 End: 03-04-2023 Warfarin 5 mg tablet Discont inued 2.5 mg PO SA January 21, 2022 1:00am March 04, 2023 4:00pm BLOOD THINNER Start: 01-21-2022 Warfarin Activ e 2.5 MG PO FRSA January 21, 2022 12:00am Start: 04-03-2021 End: 05-06-2022 warfarin (COUMADIN) 5 mg tab let Take 5 mg every Sun, Tue, Swapna; 2.5 mg all other days or as directed by [facility] 60 tablet 3 04/03/2021 05/06/2022 Discontinued Start: 12-21-2019 End: 08-27-2021 Warfarin 2.5 mg tablet Disco ntinued 2.5 mg PO MOTUWEFRSA December 21, 2019 12:00am August 27, 2021 11:39am M,W,F take 2.5 mg. Take 5mg- Tue,Thurs, Sat, sun Start: 02-22-2019 End: 03-04-2023 Warfarin 5 mg tablet Discont inued 5 mg PO SUTUTH 30 0 August 27, 2021 11:37am March 04, 2023 4:00pm BLOOD THINNER Start: 10-25-2018 End: 02-22-2019 Warfarin 5 mg tablet Discont inued PO 30 0 October 25, 2018 12:00am February 22, 2019 1:03pm Start: 10-25-2018 End: 02-22-2019 Warfarin Discontinued PO 30 October 24, 2018 11:00pm February 22, 2019 12:03pm Comment on above: Take 5 mg every Thu, Thu, Thu; 2.5 mg all other days or as directed by [facility]in Clinic Completed/Discontinued Medications Medication Drug Class(es) Dates Sig (Normalized) Sig (Original) amLODIPine 5 mg oral tablet (20 sources) Dihydropyridine Calcium Channel Elise Start: 12-24-2021 End: 09-11-2023 take 1 tablet by mouth once daily Amlodipine 5 mg tablet Discontinued 5 mg PO DAILY January 21, 2022 1:00am September 11, 2023 11:00am blood pressure Start: 05-02-2021 End: 12-24-2021 take 1 tablet by mouth once daily amLODIPine (NORVASC) 2.5 mg tablet Indications: Essential hypertension Take 1 tablet by mouth once daily. 90 tablet 1 05/02/2021 12/24/2021 Discontinued Start: 02-24-2019 End: 01-13-2020 take 1 tablet by mouth once daily Amlodipine 2.5 mg tablet Discontinued 2.5 mg PO DAILY 30 11 October 14, 2019 10:53am January 13, 2020 10:18am Comment on above: Take 1 tablet by [facility] once daily. lidocaine 0.05 mg/mg medicated patch (9 sources) Antiarrhythmic, Amide Local Anesthetic Start: 01-23-2022 End: 09-11-2023 Lidocaine 5 % Adhesive Patch,Medicated Discontinued 1 NMA TOPICAL DAILY 0 0 January 23, 2022 1:00am September 11, 2023 11:00am Please contact the information source for Protocol details. lisinopril 30 mg oral tablet (10 sources) Angiotensin Converting Enzyme Inhibitor Start: 10-25-2018 End: 02-22-2019 Lisinopril 30 mg tablet Discontinued PO 30 0 October 25, 2018 12:00am February 22, 2019 1:03pm Start: 10-25-2018 End: 02-22-2019 Lisinopril Discontinued PO 3 0 October 24, 2018 11:00pm February 22, 2019 12:03pm nitroglycerin 0.4 mg sublingual tablet (20 sources) Nitrate Vasodilator Start: 03-29-2018 End: 07-31-2023 Nitroglycerin 0.4 mg tablet, sublingual Discontinued 0.4 mg SL every 5 to 15 minutes as needed for chest pain 25 0 October 25, 2018 12:00am February 24, 2019 5:15pm Comment on above: Dissolve 1 tablet un chandan the tongue every 5 minutes as needed for Chest Pain. oxyCODONE hydrochloride 5 mg oral tablet (7 sources) Opioid Agonist Start: 02-28-2023 End: 09-11-2023 take 1 tablet by mouth every four hours as needed for pain Oxycodone 5 mg Tablet Discontinued 5 mg PO EVERY 4 HOURS NEEDED as needed for Pain Score 6-10 10 3 0 February 28, 2023 September 11, 2023 11:00am Intractable low back pain Other low back pain microencapsulated potassium chloride 20 meq extended release oral tablet (9 sources) Start: 01-23-2022 End: 02-20-2023 Potassium Chloride (Klor-Con M20) 20 mEq Tablet,Er Particles/Crystals Discontinued 20 meq PO TWICE DAILY WITH MEALS 0 0 January 23, 2022 1:00am February 20, 2023 11:26am predniSONE 20 mg oral tablet (7 sources) Start: 02-28-2023 End: 09-11-2023 take 2 tablets by mouth at breakfast Prednisone 20 mg Tablet Discontinued 40 mg PO WITH BREAKFAST 0 10 0 February 28, 2023 1:00am September 11, 2023 11:00am Start: 02-28-2023 take 40 mg by mouth at [facility] Prednisone Active 40 MG PO WITH BREAKFAST 0 10 February 28, 2023 12:00am tamsulosin hydrochloride 0.4 mg oral capsule (20 sources) alpha-Adrenergic Elise Start: 10-23-2023 End: 08-12-2024 take 1 capsule by mouth once daily at bedtime tamsulosin (FLOMAX) 0.4 mg Indications: Lower urinary tract symptoms (LUTS) , Nocturia Take 1 capsule by mouth daily at bedtime. 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; Translations: [Malformation of coronary vessels] 04-14-2019 Chronic Comment on above: LAD bridge per cath 2014 Conditions associated with dizziness or vertigo (20 sources) Dizziness; Translations: [Dizziness and giddiness] Onset: 04-26-2018 04-26-2018 Episodic Conduction disorders (20 sources) Automatic implantable cardiac defibrillator in situ; Translations: [Presence of automatic (implantable) cardiac defibrillator] Onset: 04-09-2019 09-02-2019 Chronic Coronary atherosclerosis and other heart disease (20 sources) Coronary atherosclerosis; Translations: [Atherosclerotic heart disease of [place] coronary artery without angina pectoris] Onset: 10-30-2004 03-04-2021 Chronic Disorders of lipid metabolism (20 sources) Pure hypercholesterolemia ; Translations: [Pure hypercholesterolemia , unspecified] Onset: 10-30-2004 08-28-2014 Chronic E Codes: Fall (10 sources) Fall; Translations: [Unspecified fall, initial encounter] 08-27-2021 Episodic Essential hypertension (20 sources) Essential hypertension; Translations: [Essential (primary) hypertension] Onset: 10-30-2004 02-26-2015 Chronic Immunizations and screening for infectious disease (6 sources) Patient encounter status; Translations: [Encounter for immunization] Episodic Malaise and fatigue (10 sources) Fatigue; Translations: [Other fatigue] 12-21-2019 Episodic Nutritional deficiencies (2 sources) Vitamin D deficiency; Translations: [Vitamin D deficiency, unspecified] Onset: 08-12-2024 08-12-2024 Chronic Occlusion or stenosis of precerebral arteries (10 sources) Bilateral stenosis of carotid arteries; Translations: [Occlusion and stenosis of bilateral carotid arteries] 04-14-2019 Chronic Open wounds of head; neck; and trunk (20 sources) Facial laceration ; Translations: [Laceration without foreign body of other part of head, initial encounter] 08-27-2021 Episodic Other aftercare (20 sources) Anticoagulant control - finding; Translations: [prison (current) use of anticoagulants] 07-29-2020 Episodic Other aftercare (10 sources) Surgical follow-up; Translations: [Encounter for removal of sutures] 08-27-2021 Episodic Other aftercare (2 sources) Encounter for therapeutic drug level monitoring; Translations: [Encounter for therapeutic drug monitoring] Episodic Other and ill-defined heart disease (20 sources) Mural thrombus of left ventricle; Translations: [Thrombosis of atrium, auricular appendage, and ventricle as current complications following acute myocardial infarction] Onset: 04-27-2017 Chronic Other and ill-defined heart disease (2 sources) Thrombosis of atrium, auricular appendage, and ventricle as current complications following acute myocardial infarction; Translations: [LV (left ventricular) mural thrombus following ID (HCC)] Onset: 05-28-2023 Chronic Other circulatory disease (10 sources) History of angioplasty; Translations: [Peripheral vascular angioplasty status] 07-26-2020 Episodic Comment on above: 1995 Other connective tissue disease (10 sources) Recurrent falls ; Translations: [Repeated falls] 02-20-2023 Episodic Other connective tissue disease (4 sources) Repeated falls; Translations: [History of fall] Episodic Other hereditary and degenerative nervous system conditions (7 sources) Restless legs; Translations: [Restless legs syndrome] Onset: 08-12-2024 08-12-2024 Chronic Other injuries and conditions due to external causes (10 sources) Closed injury of head; Translations: [Unspecified injury of head, initial encounter] 07-05-2019 Episodic Other nervous system disorders (1 source) (Idiopathic) normal pressure hydrocephalus; Translations: [(Idiopathic) normal pressure hydrocephalus] Onset: 04-30-2018 Chronic Other nervous system disorders (20 sources) Cerebral ventriculomegaly; Translations: [Other specified disorders of brain] Onset: 03-27-2018 03-27-2018 Chronic Other nervous system disorders (1 source) Multifactorial gait problem; Translations: [Other abnormalities of gait and mobility] 10-24-2023 Episodic Other nervous system disorders (1 source) Dysarthria; Translations: [Dysarthria and anarthria] 10-24-2023 Episodic Other nutritional; endocrine; and metabolic disorders (20 sources) Obese class I; Translations: [Obesity, unspecified] Onset: 08-20-2018 08-20-2018 Chronic Other skin disorders (1 source) Eruption; Translations: [Rash and other nonspecific skin eruption] 11-27-2023 Episodic Residual codes; unclassified (10 sources) History of operative procedure on shoulder; Translations: [Other specified postprocedural states] 07-26-2020 Episodic Comment on above: Right Residual codes; unclassified (10 sources) History of colonoscopy; Translations: [Other specified postprocedural states] 07-26-2020 Episodic Comment on above: 06/2008 Residual codes; unclassified (8 sources) Activity of daily living (ADL) alteration; Translations: [Other specified health status] 02-20-2023 Episodic Residual codes; unclassified (2 sources) Other specified health status; Translations: [Other specified conditions influencing health status] 02-28-2023 Episodic Screening and history of mental health and substance abuse codes (2 sources) Encounter for screening examination for other mental health and behavioral disorders; Translations: [Encounter for screening for depression] Onset: 08-12-2024 Episodic Spondylosis; intervertebral disc disorders; other back problems (10 sources) Spondylosis; Translations: [Spondylosis, unspecified] 02-20-2023 Chronic Spondylosis; intervertebral disc disorders; other back problems (20 sources) Intractable low back pain; Translations: [Intractable low back pain] 02-20-2023 Episodic Superficial injury; contusion (20 sources) Contusion of back; Translations: [Contusion of unspecified back wall of thorax, initial encounter] Episodic Unclassified (20 sources) Parkinsonism; Translations: [Parkinsonism] Onset: 07-31-2023 07-31-2023 Chronic Unclassified (1 source) Parkinsonism, unspecified Parkinsonism type (HCC); Translations: [Parkinsonism, unspecified Parkinsonism type (HCC)] Onset: 07-31-2023 Past or Other Problems Problem Classification Problem Date Documented Date Episodic/Chronic Diabetes mellitus without complication (20 sources) Impaired fasting glycemia; Translations: [Impaired fasting glucose] Onset: 08-15-2013 10-23-2017 Episodic Genitourinary symptoms and ill-defined conditions (20 sources) Nocturia; Translations: [Nocturia] Onset: 07-31-2023 07-31-2023 Episodic Other aftercare (20 sources) Long-term current use of anticoagulant; Translations: [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] Onset: 07-29-2018 Episodic Other aftercare (1 source) 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; Translations: [prison (current) use of anticoagulants] Onset: 06-24-2024 Episodic Other and unspecified benign neoplasm (20 sources) Benign neoplasm of colon; Translations: [Benign neoplasm of colon, unspecified] Onset: 07-18-2008 Resolved: 08-15-2013 08-15-2013 Episodic Other nervous system disorders (20 sources) Abnormal gait; Translations: [Unspecified abnormalities of gait and mobility] Onset: 01-02-2020 01-02-2020 Episodic Other nervous system disorders (1 source) Unspecified abnormalities of gait and mobility; Translations: [Abnormality of gait] Onset: 01-02-2020 Episodic Other nutritional; endocrine; and metabolic disorders (20 sources) Obesity; Translations: [Obesity, unspecified] Onset: 05-12-2008 Resolved: 08-13-2021 08-28-2014 Chronic Other skin disorders (1 source) Rash and other nonspecific skin eruption; Translations: [Rash and nonspecific skin eruption] Onset: 11-27-2023 Episodic Other upper respiratory disease (20 sources) Vasomotor rhinitis; Translations: [Vasomotor rhinitis] Onset: 03-05-2016 Resolved: 04-23-2017 04-23-2017 Chronic Results Test Name Value Interpretation Reference Range Facility [facility] 09-27-2024 [facility] Telephone (INTMWS) -------- OSMAN JONES ([id number]) 1945 M Date Time Provider Department 09/27/24 JORDY SAUCEDO INTWS During your visit today, we recorded the following information about you: Shona Goins LPN 09/27/2024 11:34 AM Signed Last INR: 2.7 09/27/2024 per [facility] lab draw Current dose of coumadin is: 5 mg Tuesdays, AND Saturdays. 2.5 mg Sundays, Mondays, Wednesdays, and Fridays. Last date of dose change: 07/04/24. Previous INR (date and result): 08/30/24 was 3.1 Additional Clinical Information or narrative: INR goal 2-3. Pt findings are negative. NEED TO LET PT KNOW OF COUMADIN INSTRUCTIONS AND OUTREACH LAB AT [facility] WHEN TO DRAW INR AGAIN. Call [facility] outreach lab at [phone]. Edith Power APRN.CNP 09/27/2024 11:41 AM Signed Dose: No Change. Repeat in INR in 1 month Edith Power APRN.Cece Reveles MA 09/27/2024 11:48 AM Signed Patient notified and tracker updated Cece Mackey MA Allergies As of Date: 09/27/2024 Noted Allergy Reaction LISINOPRIL 01/05/2019 3 - Cough Date Reviewed: 08/12/2024 Reviewed by: Candi Boland MA - Fully Assessed Reason for Visit: Anticoagulation [8] Order(s):PROTHROMBIN TIME [SQPT] Order #: [id number] Prescriptions as of 09/27/2024 - atorvastatin (LIPITOR) 80 mg tablet Take 1 tablet by mouth once daily. Takes 1/2 tab Thu, Thu AND Thursday. 1 tab rest of days - carbidopa-levodopa (SINEMET) 25-100 mg per tablet Take one(1) tablet daily at bedtime as needed. Restless legs. - metoprolol tartrate, short acting, (LOPRESSOR) 25 mg tablet Take 0.5 tablets by mouth two times a day. - losartan (COZAAR) 50 mg tablet Take 1 tablet by mouth once daily. - spironolactone (ALDACTONE) 25 mg tablet Take 1 tablet by mouth once daily. Dr. Escobar - warfarin (COUMADIN) 5 mg tablet Take 5 mg every Thu, Thu, Thu; 2.5 mg all other days or as directed by [facility] - cholecalciferol, vitamin D3, (VITAMIN D3 ORAL) Take by mouth. - nitroglycerin sublingual (NITROQUICK) 0.4 mg SL tablet Dissolve 1 tablet under the tongue every 5 minutes as needed for chest pain. - aspirin(ECOTRIN LOW STRENGTH 81 MG TAB) Take one(1) tablet daily. Meds Comments as of 07/10/2023: Appointment needed for any medication refill. 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] 10/31/2016 LV (left ventricular) mural thrombus following *04/27/2017 Cerebral ventriculomegaly [G93.89] 03/27/2018 Dizziness [R42] 04/26/2018 prison current use of anticoagulant [Z79.01]07/29/2018 Obesity, Class I, BMI 30-34.9 [E66.811] 08/20/2018 Ischemic cardiomyopathy [I25.5] 09/02/2019 Presence of implantable cardioverter-defibrilla* 09/02/2019 Abnormality of gait [R26.9] 01/02/2020 Nocturia [R35.1] 07/31/2023 Parkinsonism (HCC) [G20.C] 07/31/2023 Restless legs [G25.81] 08/12/2024 Encounter Status:Closed by CECE MACKEY on 09/27/24 Normal [facility] normalized rat io (INR) calculationon 09-27-2024 INR Coag (Bld) [Relative time] 2.7 {INR} [facility] PT panel Coag (PPP)on 2024 [facility] Prothrombin Time w/INRon INR Coag (PPP) [Relative time] 2.7 {INR} Normal [facility] Comment on above: Performed By: #### L 300.5576 #### [facility] [address] [place], [place], [id number] PT Coag (PPP) [Time] 29.0 s High 11.7-14.9 [facility] Comment on above: Performed By: #### L [id number] #### [facility] [address] [place], [address] Prothrombin timeOrdered By: Jordy Saucedo on 09-27-2024 PT Coag (PPP) [Time] 29.0 s High 11.7-14.9 [facility] CNPN Telephone (INTMWS) -------- OSMAN JONES ([id number]) 1945 M Date Time Provider Department 09/19/24 JODRY SAUCEDO INTMWS During your visit today, we recorded the following information about you: Celeste Peterson 09/19/2024 9:43 AM Signed Patient called requesting lab work results to be mailed to his home address please (As he does not use my chart) Please advise Tamia Carson LPN 09/19/2024 12:29 PM Signed 08/12/2024 Lab results mailed to Patient. Tamia Carson LPN Allergies As of Date: 09/19/2024 Noted Allergy Reaction LISINOPRIL 01/05/2019 3 - Cough Date Reviewed: 08/12/2024 Reviewed by: Candi Boland MA - Fully Assessed Reason for Visit: Patient Question [6892] Cmt: Mail lab results Prescriptions as of 09/19/2024 - atorvastatin (LIPITOR) 80 mg tablet Take 1 tablet by mouth once daily. Takes 1/2 tab Thu, Thu AND Thursday. 1 tab rest of days - carbidopa-levodopa (SINEMET) 25-100 mg per tablet Take one(1) tablet daily at bedtime as needed. Restless legs. - metoprolol tartrate, short acting, (LOPRESSOR) 25 mg tablet Take 0.5 tablets by mouth two times a day. - losartan (COZAAR) 50 mg tablet Take 1 tablet by mouth once daily. - spironolactone (ALDACTONE) 25 mg tablet Take 1 tablet by mouth once daily. Dr. Escobar - warfarin (COUMADIN) 5 mg tablet Take 5 mg every Thu, Thu, Thu; 2.5 mg all other days or as directed by [facility] - cholecalciferol, vitamin D3, (VITAMIN D3 ORAL) Take by mouth. - nitroglycerin sublingual (NITROQUICK) 0.4 mg SL tablet Dissolve 1 tablet under the tongue every 5 minutes as needed for chest pain. - aspirin(ECOTRIN LOW STRENGTH 81 MG TAB) Take one(1) tablet daily. Meds Comments as of 07/10/2023: Appointment needed for any medication refill. 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.1] 10/31/2016 LV (left ventricular) mural thrombus following *04/27/2017 Cerebral ventriculomegaly [G93.89] 03/27/2018 Dizziness [R42] 04/26/2018 prison current use of anticoagulant [Z79.01]07/29/2018 Obesity, Class I, BMI 30-34.9 [E66.811] 08/20/2018 Ischemic cardiomyopathy [I25.5] 09/02/2019 Presence of implantable cardioverter-defibrilla* 09/02/2019 Abnormality of gait [R26.9] 01/02/2020 Nocturia [R35.1] 07/31/2023 Parkinsonism (HCC) [G20.C] 07/31/2023 Restless legs [G25.81] 08/12/2024 Encounter Status:Closed by TAMIA CARSON on 09/19/24 Normal [facility] CNPNon 08-30-2024 CNPN Telephone (INTMWS) -------- ROBERTOSMAN ([id number]) 1945 M Date Time Provider Department 08/30/24 JORDY SAUCEDO INTMWS During your visit today, we recorded the following information about you: Shona Goins LPN 08/30/2024 12:08 PM Signed Last INR: 3.1 08/30/2024 [facility] lab draw Current dose of coumadin is: 5 mg Tuesdays, AND Saturdays. 2.5 mg Sundays, Mondays, Wednesdays, and Fridays. Last date of dose change: 07/04/24. Previous INR (date and result): 08/02/24 was 2.8 Additional Clinical Information or narrative: INR goal is 2-3. : NEED TO LET PT KNOW OF COUMADIN INSTRUCTIONS AND OUTREACH LAB AT [facility] WHEN TO DRAW INR AGAIN. Call [facility] outreach lab at [phone]. Jordy Saucedo MD 08/30/2024 1:45 PM Signed Continue Coumadin dose. INR in 4 weeks. Cece Mackey MA 08/30/2024 2:13 PM Signed Patient was notified and tracker updated Cece Mackey MA Allergies As of Date: 08/30/2024 Noted Allergy Reaction LISINOPRIL 01/05/2019 3 - Cough Date Reviewed: 08/12/2024 Reviewed by: Candi Boland MA - Fully Assessed Reason for Visit: Anticoagulation [8] Order(s):PROTHROMBIN TIME [SQPT] Order #: [id number] Prescriptions as of 08/30/2024 - atorvastatin (LIPITOR) 80 mg tablet Take 1 tablet by mouth once daily. Takes 1/2 tab Thu, Thu AND Thursday. 1 tab rest of days - carbidopa-levodopa (SINEMET) 25-100 mg per tablet Take one(1) tablet daily at bedtime as needed. Restless legs. - metoprolol tartrate, short acting, (LOPRESSOR) 25 mg tablet Take 0.5 tablets by mouth two times a day. - losartan (COZAAR) 50 mg tablet Take 1 tablet by mouth once daily. - spironolactone (ALDACTONE) 25 mg tablet Take 1 tablet by mouth once daily. Dr. Escobar - warfarin (COUMADIN) 5 mg tablet Take 5 mg every Thu, Thu, Thu; 2.5 mg all other days or as directed by [facility] - cholecalciferol, vitamin D3, (VITAMIN D3 ORAL) Take by mouth. - nitroglycerin sublingual (NITROQUICK) 0.4 mg SL tablet Dissolve 1 tablet under the tongue every 5 minutes as needed for chest pain. - aspirin(ECOTRIN LOW STRENGTH 81 MG TAB) Take one(1) tablet daily. Meds Comments as of 07/10/2023: Appointment needed for any medication refill. 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 [Z79.01]07/29/2018 Obesity, Class I, BMI 30-34.9 [E66.811] 08/20/2018 Ischemic cardiomyopathy [I25.5] 09/02/2019 Presence of implantable cardioverter-defibrilla* 09/02/2019 Abnormality of gait [R26.9] 01/02/2020 Nocturia [R35.1] 07/31/2023 Parkinsonism (HCC) [G20.C] 07/31/2023 Restless legs [G25.81] 08/12/2024 Encounter Status:Closed by CECE MACKEY on 08/30/24 [facility] OSM[facility]ES ([id number]) 1945 M Date Time Provider Department 08/30/24 JORDY SAUCEDO INTMWS During your visit today, we recorded the following information about you: Rajesh Durbin RN 08/30/2024 8:24 AM Signed Faxed INR standing order to [facility] Lab per Pedro request. Allergies As of Date: 08/30/2024 Noted Allergy Reaction LISINOPRIL 01/05/2019 3 - Cough Date Reviewed: 08/12/2024 Reviewed by: Candi Boland MA - Fully Assessed Reason for Visit: Faxed to [facility] Lab [Other] Prescriptions as of 08/30/2024 - atorvastatin (LIPITOR) 80 mg tablet Take 1 tablet by mouth once daily. Takes 1/2 tab Thu, Thu AND Thursday. 1 tab rest of days - carbidopa-levodopa (SINEMET) 25-100 mg per tablet Take one(1) tablet daily at bedtime as needed. Restless legs. - metoprolol tartrate, short acting, (LOPRESSOR) 25 mg tablet Take 0.5 tablets by mouth two times a day. - losartan (COZAAR) 50 mg tablet Take 1 tablet by mouth once daily. - spironolactone (ALDACTONE) 25 mg tablet Take 1 tablet by mouth once daily. Dr. Escobar - warfarin (COUMADIN) 5 mg tablet Take 5 mg every Thu, Thu, Thu; 2.5 mg all other days or as directed by [facility] - cholecalciferol, vitamin D3, (VITAMIN D3 ORAL) Take by mouth. - nitroglycerin sublingual (NITROQUICK) 0.4 mg SL tablet Dissolve 1 tablet under the tongue every 5 minutes as needed for chest pain. - aspirin(ECOTRIN LOW STRENGTH 81 MG TAB) Take one(1) tablet daily. Meds Comments as of 07/10/2023: Appointment needed for any medication refill. 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 [Z79.01]07/29/2018 Obesity, Class I, BMI 30-34.9 [E66.811] 08/20/2018 Ischemic cardiomyopathy [I25.5] 09/02/2019 Presence of implantable cardioverter-defibrilla* 09/02/2019 Abnormality of gait [R26.9] 01/02/2020 Nocturia [R35.1] 07/31/2023 Parkinsonism (HCC) [G20.C] 07/31/2023 Restless legs [G25.81] 08/12/2024 Encounter Status:Closed by Rajesh DURBIN on 08/30/24 Normal [facility] normalized rat io (INR) calculationon 08-30-2024 INR Coag (Bld) [Relative time] 3.1 {INR} [facility] PT panel Coag (PPP)on 2024 Interpretation and review of laboratory results Abnormal [facility] Prothrombin Time w/INRon INR Coag (PPP) [Relative time] 3.1 {INR} Normal [facility] Comment on above: Performed By: #### L 920.2371 #### [facility] [address] [place], [place], [address] Prothrombin timeOrdered By: Jordy Saucedo on 08-30-2024 PT Coag (PPP) [Time] 32.9 s High 11.7-14.9 [facility] Comment on above: Performed By: #### L 300.3900 #### [facility] [address] [place], [place], [address] 25(OH)D3 SerPl-mCncon 2024 25-hydroxyvitamin D3 [Mass/Vol] 50.7 ng/mL Normal 31.0-80.0 [facility] Comment on above: Order Comment: Speci men Type: BLOOD SPECIMEN Ordering Facility: [facility] Address: [address] [place] [address] Performed By: #### 5 8410-2 #### [facility] CLIA [id number] [address] [place] [address] [place] CBC panel Auto (Bld)on 08-12 Erythrocyte distribution width (RBC) [Ratio] 13.3 % Normal 11.5-15.0 [facility] Comment on above: Order Comment: Speci men Type: BLOOD SPECIMEN Ordering Facility: [facility] Address: [address] [place] [address] Performed By: #### 5 8410-2 #### [facility] CLIA [id number] [address] [place] [address] [place] Hematocrit (Bld) [Volume fraction] 48.7 % Normal 39.0-51.0 [facility] Comment on above: Order Comment: Speci men Type: BLOOD SPECIMEN Ordering Facility: [facility] Address: [address] [place] [address] Performed By: #### 5 8410-2 #### [facility] CLIA [id number] [address] [place] [address] [place] Hemoglobin (Bld) [Mass/Vol] 16.1 g/dL Normal 13.0-17.0 [facility] Comment on above: Order Comment: Speci men Type: BLOOD SPECIMEN Ordering Facility: [facility] Address: [address] [place] [address] Performed By: #### 5 8410-2 #### [facility] CLIA [id number] [address] [place] [address] [place] MCH (RBC) [Entitic mass] 30.6 pg Normal 26.0-34.0 [facility] Comment on above: Order Comment: Speci men Type: BLOOD SPECIMEN Ordering Facility: [facility] Address: [address] [place] [address] Performed By: #### 5 8410-2 #### [facility] CLIA [id number] [address] [place] [address] [place] MCHC (RBC) [Mass/Vol] 33.1 g/dL Normal 30.5-36.0 [facility] Comment on above: Order Comment: Speci men Type: BLOOD SPECIMEN Ordering Facility: [facility] Address: [address] [place] [address] Performed By: #### 5 8410-2 #### [facility] CLIA [id number] [address] [place] [address] [place] MCV (RBC) [Entitic vol] 92.4 fL Normal 80.0-100.0 [facility] Comment on above: Order Comment: Speci men Type: BLOOD SPECIMEN Ordering Facility: [facility] Address: [address] [place] [address] Performed By: #### 5 8410-2 #### [facility] CLIA [id number] [address] [place] [address] [place] Nucleated RBC (Bld) [#/Vol] 10*3/uL Normal <0.01 [facility] Comment on above: Order Comment: Speci men Type: BLOOD SPECIMEN Ordering Facility: [facility] Address: [address] [place], [place] [address] Performed By: #### 5 8410-2 #### [facility] CLIA [id number] [address] [place] [address] [place] Platelet mean volume (Bld) [Entitic vol] 13.6 fL High 9.0-12.7 [facility] Comment on above: Order Comment: Speci men Type: BLOOD SPECIMEN Ordering Facility: [facility] Address: [address] [place] [address] Performed By: #### 5 8410-2 #### [facility] CLIA [id number] [address] [place] [address] [place] Platelets (Bld) [#/Vol] 181 10*3/uL Normal 150-400 [facility] Comment on above: Order Comment: Speci men Type: BLOOD SPECIMEN Ordering Facility: [facility] Address: [address] [place] [address] Performed By: #### 5 8410-2 #### [facility] CLIA [id number] [address] [place] [address] [place] RBC (Bld) [#/Vol] 5.27 10*6/uL Normal 4.20-6.00 [facility] Comment on above: Order Comment: Speci men Type: BLOOD SPECIMEN Ordering Facility: [facility] Address: [address] [place] [address] Performed By: #### 5 8410-2 #### [facility] CLIA [id number] [address] [place] [address] [place] WBC (Bld) [#/Vol] 9.34 10*3/uL Normal 3.70-11.00 [facility] Comment on above: Order Comment: Speci men Type: BLOOD SPECIMEN Ordering Facility: [facility] Address: [address] [place] [address] Performed By: #### 5 8410-2 #### [facility] CLIA [id number] [address] [place] [address] [facility] CNOVon 08-12-2024 CNOV Office Visit (INTMWS ) -------- OSMAN JONES ([id number]) 1945 M Date Time Provider Department 08/12/24 2:20 PM JORDY SAUCEDO INTMWS During your visit today, we recorded the following information about you: Pulse Blood pressure 66/minute 120/70 Jordy Saucedo MD 08/12/2024 3:31 PM Signed Osman Jones is a 78 year old male here for a Medicare wellness visit. Medicare Health Risk Assessment General Health Poor Exercise: Minutes/Day 0 min Exercise: Days/Week 0 days Alcohol: Daily Use Never Alcohol: Drinks/Day Patient does not drink Alcohol: 6 or more drinks Never Feel off balance Yes Concerns: Teeth/Dentures No Concerns: Sexual function No Troubled by feelings None of the above Frequency: Eating healthy diet Nearly every day ADLs requiring help Grocery shopping; Cooking; Housework; Walking; Sitting or standing; Bathing; Driving Safety precautions in home/vehicle Yes Smoke, vape, chews tobacco No Difficulty hearing Yes Difficulty seeing No Current Providers Specialists: I have reviewed specialist-related care of the patient in the medical record. Current care team: Patient Care Team: Jordy Saucedo MD as PCP - General Edith Power APRN.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 ENGINEER as Lining Maker (Internal Medicine) Outside specialists seen: VA provider. VA neurologist. VA choir teacher. [facility] optometry. [facility] (device) Medical/Family history review Reviewed and updated problem list, medical/surgical/family/ social history, medications, and allergies. Opioid use review Opioid Medications (last 90 days) No data to display Anxiety/Depression screening Recommendation: no further intervention at this time Cognitive screening Mini Cog Score: 5 Cognitive screening reviewed and No further action needed (score 3-5). Functional Observation Was the patient's Timed Up AND Go test unsteady or >= 12 seconds? Yes Advance Care Planning Patient did not wish or was not able to name a surrogate decision maker or provide an advance care plan Measurements BP 120/70 Pulse 66 SpO2 96% Vision Screening: Follows with optometry/ophthalmology Declines visual acuity screen Assessment/Plan Medicare annual wellness visit, subsequent (Z00.00) - Counseled on healthy diet and regular exercise - Fall avoidance information provided - Personalized prevention plan provided Jordy Saucedo MD 08/12/2024 3:31 PM Signed This note was created using Gild. Subjective Patient presents with: Medicare Wellness Exam Recheck Osman Jones is a 78 year old male here with his daughter. He was unable to safely stand and be weighed. He mainly sat on his recliner at home, using his walker for short mobility needs like going to the bathroom. He does not go to the living room or kitchen. He started going more to the [facility] for care including cardiology, neurology, and will go there for optometry. He did not tolerate Sinemet last year, but he still took one tablet as needed for restless legs. Review of Systems Constitutional: Negative for appetite change, fatigue, fever and unexpected weight change. HENT: Negative for congestion and trouble swallowing. Eyes: Negative for visual disturbance. Respiratory: Negative for cough, chest tightness and shortness of breath. Cardiovascular: Positive for leg swelling. Negative for chest pain and palpitations. Gastrointestinal: Negative for abdominal pain, constipation and diarrhea. Genitourinary: Negative for difficulty urinating and dysuria. Musculoskeletal: Negative for arthralgias and back pain. Skin: Positive for color change. Negative for wound. Neurological: Negative for dizziness and headaches. 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 Obesity, Class I, Bmi 30-34.9 Ischemic Cardiomyopathy Presence of Implantable Cardioverter-Defibrillat or (Icd) Abnormality of Gait Nocturia Parkinsonism (Hcc) Social History Tobacco Use Smoking status: Former Current packs/day: 0.00 Average packs/day: 0.3 packs/day for 15.0 years (3.8 ttl pk-yrs) Types: Cigarettes Start date: 03/09/1984 Quit date: 03/09/1999 Years since quittin.4 Smokeless tobacco: Never Vaping Use Vaping status: Never Used Substance Use Topics Alcohol use: No Drug use: No Current Outpatient Medications Medication Sig metoprolol tartrate, short acting, (LOPRESSOR) 25 mg tablet Take 0.5 tablets by mouth two times a day. losartan (COZAAR) 50 mg tablet Take 1 tablet by mouth once daily. spironolactone (ALDACTONE) 25 mg tablet Take 1 tablet by mouth once daily. Dr. Escobar warfarin (COUMADIN) 5 mg tablet Take 5 mg every Thu, Thu, Thu (more content not included)... Normal [facility] Comprehensive metabolic 2000 panelon 08-12-2024 Albumin [Mass/Vol] 4.0 g/dL Normal 3.9-4.9 [facility] Comment on above: Order Comment: Speci men Type: BLOOD SPECIMEN Ordering Facility: [facility] Address: [address] [place] [address] Performed By: #### 5 8410-2 #### [facility] CLIA [id number] [address] [place] [address] [place] ALP [Catalytic activity/Vol] 90 U/L Normal 38-113 [facility] Comment on above: Order Comment: Speci men Type: BLOOD SPECIMEN Ordering Facility: [facility] Address: [address] [place] [address] Performed By: #### 5 8410-2 #### [facility] CLIA [id number] [address] [place] [address] [place] ALT [Catalytic activity/Vol] 29 U/L Normal 10-54 [facility] Comment on above: Order Comment: Speci men Type: BLOOD SPECIMEN Ordering Facility: [facility] Address: [address] [place] [address] Performed By: #### 5 8410-2 #### [facility] CLIA [id number] [address] [place] [address] [place] Anion gap [Moles/Vol] 14 mmol/L Normal 8-15 [facility] Comment on above: Order Comment: Speci men Type: BLOOD SPECIMEN Ordering Facility: [facility] Address: [address] [place], [place] [address] Performed By: #### 5 8410-2 #### [facility] CLIA [id number] [address] [place], [place] [id number] [place] AST [Catalytic activity/Vol] 31 U/L Normal 14-40 [facility] Comment on above: Order Comment: Speci men Type: BLOOD SPECIMEN Ordering Facility: [facility] Address: [address] [place] [address] Performed By: #### 5 8410-2 #### [facility] CLIA [id number] [address] [place] [address] [place] Bilirubin [Mass/Vol] 1.5 mg/dL High 0.2-1.3 [facility] Comment on above: Order Comment: Speci men Type: BLOOD SPECIMEN Ordering Facility: [facility] Address: [address] [place], [place] [address] Performed By: #### 5 8410-2 #### [facility] CLIA [id number] [address] [place] [address] [place] Calcium [Mass/Vol] 9.6 mg/dL Normal 8.5-10.2 [facility] Comment on above: Order Comment: Speci men Type: BLOOD SPECIMEN Ordering Facility: [facility] Address: [address] [place], [place] [address] Performed By: #### 5 8410-2 #### [facility] CLIA [id number] [address] [place], [place] [address] [place] Chloride [Moles/Vol] 103 mmol/L Normal 98-107 [facility] Comment on above: Order Comment: Speci men Type: BLOOD SPECIMEN Ordering Facility: [facility] Address: [address] [place], [place] [address] Performed By: #### 5 8410-2 #### [facility] CLIA [id number] [address] [place] [address] [place] CO2 [Moles/Vol] 22 mmol/L Normal 22-30 [facility] Comment on above: Order Comment: Speci men Type: BLOOD SPECIMEN Ordering Facility: [facility] Address: [address] [place] [address] Performed By: #### 5 8410-2 #### [facility] CLIA [id number] [address] [place] [address] [place] Creatinine [Mass/Vol] 0.94 mg/dL Normal 0.73-1.22 [facility] Comment on above: Order Comment: Speci men Type: BLOOD SPECIMEN Ordering Facility: [facility] Address: [address] [place] [address] Performed By: #### 5 8410-2 #### [facility] CLIA [id number] [address] [place] [address] [place] Creatinine and Glomerular filtration rate.predicted panel (S/P/Bld) 83 mL/min/1.73m??? Normal >=60 [facility] Comment on above: Order Comment: Speci men Type: BLOOD SPECIMEN Ordering Facility: [facility] Address: [address] [place] [address] Result Comment: Ligia mated Glomerular Filtration Rate (eGFR) is calculated using the 2020 CKD-EPI creatinine equation. This equation utilizes serum creatinine, sex, and age as parameters. The creatinine assay has traceable calibration to isotope dilution-mass spectrometry. Refer to KDIGO guidelines for clinical interpretation. In patients with unstable renal function, e.g. those with acute kidney injury, the eGFR may not accurately reflect actual GFR. Performed By: #### 5 8410-2 #### [facility] CLIA [id number] [address] [place], [place] [address] [place] Glucose [Mass/Vol] 90 mg/dL Normal 74-99 [facility] Comment on above: Order Comment: Speci men Type: BLOOD SPECIMEN Ordering Facility: [facility] Address: [address] [place], [place] [id number] Result Comment: The [place] Diabetes Association (ADA) provides guidance for cutoff values for fasting glucose and random glucose. The ADA defines fasting as no caloric intake for at least 8 hours. Fasting plasma glucose results between 100 to 125 mg/dL indicate increased risk for diabetes (prediabetes). Fasting plasma glucose results greater than or equal to 126 mg/dL meet the criteria for diagnosis of diabetes. In the absence of unequivocal hyperglycemia, results should be confirmed by repeat testing. In a patient with classic symptoms of hyperglycemia or hyperglycemic crisis, random plasma glucose results greater than or equal to 200 mg/dL meet the criteria for diagnosis of diabetes. Reference: Standards of Medical Care in Diabetes 2016, [place] Diabetes Association. Diabetes Care. 2016.39(Suppl 1). Performed By: #### 5 8410-2 #### [facility] CLIA [id number] [address] [place] [address] [place] Potassium [Moles/Vol] 4.2 mmol/L Normal 3.7-5.1 [facility] Comment on above: Order Comment: Speci men Type: BLOOD SPECIMEN Ordering Facility: [facility] Address: [address] [place] [address] Performed By: #### 5 8410-2 #### [facility] CLIA [id number] [address] [place] [address] [place] Protein [Mass/Vol] 7.4 g/dL Normal 6.3-8.0 [facility] Comment on above: Order Comment: Speci men Type: BLOOD SPECIMEN Ordering Facility: [facility] Address: [address] [place] [address] Performed By: #### 5 8410-2 #### [facility] CLIA [id number] [address] [place] [address] [place] Sodium [Moles/Vol] 139 mmol/L Normal 136-144 [facility] Comment on above: Order Comment: Speci men Type: BLOOD SPECIMEN Ordering Facility: [facility] Address: [address] [place] [address] Performed By: #### 5 8410-2 #### [facility] CLIA [id number] [address] [place] [address] [place] Urea nitrogen [Mass/Vol] 14 mg/dL Normal 9-24 [facility] Comment on above: Order Comment: Ming men Type: BLOOD SPECIMEN Ordering Facility: [facility] Address: [address] [place] [address] Performed By: #### 5 8410-2 #### [facility] CLIA [id number] [address] [place] [address] [place] HbA1c (Bld)on 08-12-2024 Average glucose Estimated from glycated hemoglobin (Bld) [Mass/Vol] 114 mg/dL Normal [facility] Comment on above: Order Comment: Ming moore Type: BLOOD SPECIMEN Ordering Facility: [facility] Address: [address] [place] [address] Result Comment: eAG: (Estimated average glucose) is a calculated value from HgbA1c and is customer service representative of the average blood glucose level in the last 2-3 month period. Performed By: #### 5 5454-3 #### [facility] CLIA [id number] [address] [place] [address] [place] HbA1c (Bld) [Mass fraction] 5.6 % Normal 4.3-5.6 [facility] Comment on above: Order Comment: Ming moore Type: BLOOD SPECIMEN Ordering Facility: [facility] Address: [address] [place] [address] Result Comment: [place] Diabetes Association guidelines indicate that patients with HgbA1c in the range 5.7-6.4% are at increased risk for development of diabetes, and intervention by lifestyle modification may be beneficial. HgbA1c greater or equal to 6.5% is considered diagnostic of diabetes. Performed By: #### 5 5454-3 #### [facility] CLIA [id number] [address] [place] [address] [place] [facility] [place] LIPID PANEL, NONFASTINGon Cholesterol [Mass/Vol] 121 mg/dL Normal <200 [facility] Comment on above: Order Comment: Speci men Type: BLOOD SPECIMEN Ordering Facility: [facility] Address: [address] [place] [address] Result Comment: <200 mg/dL, Desirable 200-239 mg/dL, Borderline high >239 mg/dL, High Performed By: #### 5 8410-2 #### [facility] CLIA [id number] [address] [place] [address] [place] HDL CHOLESTEROL, NF 39 mg/dL Low >39 [facility] Comment on above: Order Comment: Speci men Type: BLOOD SPECIMEN Ordering Facility: [facility] Address: [address] [place] [address] Result Comment: 40-5 9 mg/dL, Acceptable >59 mg/dL, High: Negative risk factor for coronary heart disease <40 mg/dL, Low: Positive risk factor for coronary heart disease Performed By: #### 5 8410-2 #### [facility] CLIA [id number] [address] [place] [address] [place] LDL CHOLESTEROL CALCULATED, NF 65 mg/dL Normal <100 [facility] Comment on above: Order Comment: Speci men Type: BLOOD SPECIMEN Ordering Facility: [facility] Address: [address] [place] [address] Result Comment: <100 mg/dL, Optimal 100-129 mg/dL, Near optimal/above optimal 130-159 mg/dL, Borderline high 160-189 mg/dL, High >189 mg/dL, Very high Secondary prevention optimal LDL Cholesterol levels are recommended to be <70 mg/dL LDL cholesterol is calculated using the Dawson-NIH equation. Performed By: #### 5 8410-2 #### [facility] CLIA [id number] [address] [place] [address] [place] LDL/HDL RATIO, NF 1.67 mg/dL Normal <2.54 [facility] Comment on above: Order Comment: Ming moore Type: BLOOD SPECIMEN Ordering Facility: [facility] Address: [address] [place] [address] Result Comment: Miguel Ángel wilcox: 1. National Cholesterol Education Program ATP III Guideline At-A-Glance Quick Desk Reference: National Heart, Lung, and Blood [place]. National Institutes of Health. 2001: NIH Publication No. 01-3305. 2. An International Atherosclerosis Society position paper: global recommendations for the management of dyslipidemia: executive summary, Atherosclerosis. 2014: 232(2):410-413. Performed By: #### 5 8410-2 #### [facility] CLIA [id number] [address] [place] [address] [place] NON HDL CHOL, NF 82 mg/dL Normal <130 [facility] Comment on above: Order Comment: Ming moore Type: BLOOD SPECIMEN Ordering Facility: [facility] Address: [address] [place] [address] Result Comment: <130 mg/dL, Optimal 130-159 mg/dL, Near optimal/above optimal 160-189 mg/dL, Borderline high 190-219 mg/dL, High >219 mg/dL, Very high Secondary prevention optimal non HDL Cholesterol levels are recommended to be <100 mg/dL Performed By: #### 5 8410-2 #### [facility] CLIA [id number] [address] [place] [address] [place] T CHOL/HDL RATIO NF 3.10 mg/dL Normal <5.10 [facility] Comment on above: Order Comment: Ming men Type: BLOOD SPECIMEN Ordering Facility: [facility] Address: [address] [place] [address] Performed By: #### 5 8410-2 #### [facility] CLIA [id number] [address] [place] [address] [place] TRIGLYCERIDES, NF 89 mg/dL Normal <150 [facility] Comment on above: Order Comment: Beleni men Type: BLOOD SPECIMEN Ordering Facility: [facility] Address: [address] [place] [address] Result Comment: <150 mg/dL, Normal 150-199 mg/dL, Borderline high 200-499 mg/dL, High >499 mg/dL, Very high Performed By: #### 5 8410-2 #### [facility] CLIA [id number] [address] [place] [address] [place] VLDL CHOLESTEROL, NF 13 mg/dL Normal <30 [facility] Comment on above: Order Comment: Speci men Type: BLOOD SPECIMEN Ordering Facility: [facility] Address: [address] [place] [address] Performed By: #### 5 8410-2 #### [facility] CLIA [id number] [address] [place] [address] [facility] CNPNon 08-02-2024 CNPN Telephone (INTMWS) -------- OSMAN JONES ([id number]) 1945 M Date Time Provider Department 08/02/24 JORDY SAUCEDO INTWS During your visit today, we recorded the following information about you: Cece Mackey MA 08/02/2024 11:23 AM Signed Last INR: INR 2.8 08/02/2024 [facility] outreach lab Current dose of coumadin is: 5 mg Tuesdays, AND Saturdays. 2.5 mg Sundays, Mondays, Wednesdays, and Fridays. Last date of dose change: 07/04. Previous INR (date and result): 07/04 2.7 Additional Clinical Information or narrative: NEED TO LET PT KNOW OF COUMADIN INSTRUCTIONS AND OUTREACH LAB AT [facility] WHEN TO DRAW INR AGAIN. Call [facility] outreach lab at [phone]. HARDIK Rose Victor H, MD 08/02/2024 1:51 PM Signed Continue Coumadin dose. INR in 4 weeks. Cece Mackey MA 08/02/2024 2:10 PM Signed was notified and [facility] outpatient lab notified Fax TE to [phone] Cece Mackey MA Allergies As of Date: 08/02/2024 Noted Allergy Reaction LISINOPRIL 01/05/2019 3 - Cough Date Reviewed: 11/27/2023 Reviewed by: Chloé Gong MA - Fully Assessed Reason for Visit: Anticoagulation [8] Prescriptions as of 08/02/2024 - metoprolol tartrate, short acting, (LOPRESSOR) 25 mg tablet Take 0.5 tablets by mouth two times a day. - losartan (COZAAR) 50 mg tablet Take 1 tablet by mouth once daily. - spironolactone (ALDACTONE) 25 mg tablet Take 1 tablet by mouth once daily. Dr. Escobar - atorvastatin (LIPITOR) 80 mg tablet Take 1 tablet by mouth once daily. Takes 1/2 tab Thu, Thu AND Thursday. 1 tab rest of days - warfarin (COUMADIN) 5 mg tablet Take 5 mg every Thu, Thu, Thu; 2.5 mg all other days or as directed by [facility] - tamsulosin (FLOMAX) 0.4 mg Take 1 capsule by mouth daily at bedtime. - cholecalciferol, vitamin D3, (VITAMIN D3 ORAL) Take by mouth. - carbidopa-levodopa (SINEMET) 25-100 mg per tablet Take 2 tablets by mouth three times a day. - nitroglycerin sublingual (NITROQUICK) 0.4 mg SL tablet Dissolve 1 tablet under the tongue every 5 minutes as needed for chest pain. - aspirin(ECOTRIN LOW STRENGTH 81 MG TAB) Take one(1) tablet daily. Meds Comments as of 07/10/2023: Appointment needed for any medication refill. Problem List As Of Date 08/02/2024 Noted Resolved Coronary atherosclerosis [I25.10] 10/30/2004 PURE HYPERCHOLESTEROLEM [E78.00] 10/30/2004 Essential hypertension [I10] 10/30/2004 Obesity, unspecified [E66.9] 05/12/2008 08/13/2021 Benign neoplasm of colon [D12.6] 07/18/2008 08/15/2013 Impaired fasting glucose [R73.01] 08/15/2013 Vasomotor rhinitis [J30.0] 03/05/2016 04/23/2017 S/P CABG x 2 [Z95.1] 10/31/2016 LV (left ventricular) mural thrombus following *04/27/2017 Cerebral ventriculomegaly [G93.89] 03/27/2018 Dizziness [R42] 04/26/2018 prison current use of anticoagulant [Z79.01]07/29/2018 Obesity, Class I, BMI 30-34.9 [E66.811] 08/20/2018 Ischemic cardiomyopathy [I25.5] 09/02/2019 Presence of implantable cardioverter-defibrilla* 09/02/2019 Abnormality of gait [R26.9] 01/02/2020 Nocturia [R35.1] 07/31/2023 Parkinsonism (HCC) [G20.C] 07/31/2023 Encounter Status:Closed by CECE MACKEY on 08/02/24 Normal [facility] normalized rat io (INR) calculationOrdered By: Jordy Saucedo on 08-02-2024 INR Coag (Bld) [Relative time] 2.8 {INR} [facility] Prothrombin Time w/INRon INR Coag (PPP) [Relative time] 2.8 {INR} Normal [facility] Comment on above: Performed By: #### L 300.3900 #### [facility] [address] [place], [place], [id number] PT Coag (PPP) [Time] 30.3 s High 11.7-14.9 [facility] Comment on above: Performed By: #### L 300.3900 #### [facility] [address] [place], [place], [id number] Prothrombin timeOrdered By: Jordy Saucedo on 08-02-2024 PT Coag (PPP) [Time] 30.3 s High 11.7-14.9 [facility] CNPNon 07-04-2024 CNPN Telephone (INTMWS) -------- OSMAN JONES ([id number]) 1945 M Date Time Provider Department 07/04/24 JORDY SAUCEDO INTMWS During your visit today, we recorded the following information about you: Shona Goins LPN 07/04/2024 11:42 AM Signed Last INR: 2.7 07/04/2024 [facility] outreach lab Current dose of coumadin is: . 5 mg Tuesdays, AND Saturdays. 2.5 mg Sundays, Mondays, Wednesdays, and Fridays. Last date of dose change: 06/20/24. Previous INR (date and result): 06/20/24 was 1.9 Additional Clinical Information or narrative: INR goal is 2-3 Pt findings are negative. NEED TO LET PT KNOW OF COUMADIN INSTRUCTIONS AND OUTREACH LAB AT [facility] WHEN TO DRAW INR AGAIN. Call [facility] outreach lab at [phone]. Jordy Saucedo MD 07/04/2024 4:10 PM Signed Continue Coumadin dose. INR in 4 weeks. Shona Goins LPN 07/04/2024 4:43 PM Signed Patient notified of results and provider's instructions. Patient verbalizes understanding. Shona Goins LPN Next draw called [facility] outreach.message left with this info. Allergies As of Date: 07/04/2024 Noted Allergy Reaction LISINOPRIL 01/05/2019 3 - Cough Date Reviewed: 11/27/2023 Reviewed by: Chloé Gong MA - Fully Assessed Reason for Visit: Anticoagulation [8] Order(s):PROTHROMBIN TIME [SQPT] Order #: [id number] Prescriptions as of 07/04/2024 - warfarin (COUMADIN) 5 mg tablet Take 5 mg every Thu, Thu, Thu; 2.5 mg all other days or as directed by [facility] - tamsulosin (FLOMAX) 0.4 mg Take 1 capsule by mouth daily at bedtime. - cholecalciferol, vitamin D3, (VITAMIN D3 ORAL) Take by mouth. - carbidopa-levodopa (SINEMET) 25-100 mg per tablet Take 2 tablets by mouth three times a day. - nitroglycerin sublingual (NITROQUICK) 0.4 mg SL tablet Dissolve 1 tablet under the tongue every 5 minutes as needed for chest pain. - metoprolol tartrate, short acting, (LOPRESSOR) 25 mg tablet Take 0.5 tablets by mouth two times a day. - losartan (COZAAR) 50 mg tablet Take 1 tablet by mouth once daily. - spironolactone (ALDACTONE) 25 mg tablet Take 1 tablet by mouth once daily. Dr. Escobar - atorvastatin (LIPITOR) 80 mg tablet Take 1 tablet by mouth once daily. Takes 1/2 tab Thu, Thu AND Thursday. 1 tab rest of days - aspirin(ECOTRIN LOW STRENGTH 81 MG TAB) Take one(1) tablet daily. Meds Comments as of 07/10/2023: Appointment needed for any medication refill. 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 [Z79.01]07/29/2018 Obesity, Class I, BMI 30-34.9 [E66.811] 08/20/2018 Ischemic cardiomyopathy [I25.5] 09/02/2019 Presence of implantable cardioverter-defibrilla* 09/02/2019 Abnormality of gait [R26.9] 01/02/2020 Nocturia [R35.1] 07/31/2023 Parkinsonism (HCC) [G20.C] 07/31/2023 Encounter Status:Closed by SHONA GOINS on 07/04/24 Normal [facility] normalized rat io (INR) calculationon 07-04-2024 INR Coag (Bld) [Relative time] 2.7 {INR} [facility] PT panel Coag (PPP)on 2024 [facility] Prothrombin Time w/INRon INR Coag (PPP) [Relative time] 2.7 {INR} Normal [facility] Comment on above: Performed By: #### L 300.3900 #### [facility] [address] [place], [place], [id number] PT Coag (PPP) [Time] 29.2 s High 11.7-14.9 [facility] Comment on above: Performed By: #### L 300.3900 #### [facility] [address] [place], [address] Prothrombin timeOrdered By: Jordy Saucedo on 07-04-2024 PT Coag (PPP) [Time] 29.2 s High 11.7-14.9 [facility]Non [facility]20[facility]INTInfoRemateWS[facility] -------- OSMAN JONES ([id number]) 1945 M Date Time Provider Department 06/20/24 JORDY SAUCEDO INTWS During your visit today, we recorded the following information about you: Shona Goins LPN 06/20/2024 12:33 PM Signed Last INR:1.9 06/20/2024 from [facility] lab draw Current dose of coumadin is:5 mg Tue and Thursdays. 2.5 mg Thu, Thu, Thu, Thu, and Saturdays. Last date of dose change: 03/14/24. Previous INR (date and result): 05/23/24 2.1 Additional Clinical Information or narrative: INR goal is 2-3. Pt findings are negative. NEED TO LET PT KNOW OF COUMADIN INSTRUCTIONS AND OUTREACH LAB AT [facility] WHEN TO DRAW INR AGAIN. Call [facility] outreach lab at [phone]. Jordy Saucedo MD 06/20/2024 1:21 PM Signed Increase Coumadin dose. 5 mg Tuesdays, AND Saturdays. 2.5 mg Sundays, Mondays, Wednesdays, and Fridays.. INR in 2 weeks. Shona Goins LPN 06/20/2024 2:01 PM Signed Pt notified and message left to [facility] outreach lab with next draw. Allergies As of Date: 06/20/2024 Noted Allergy Reaction LISINOPRIL 01/05/2019 3 - Cough Date Reviewed: 11/27/2023 Reviewed by: Chloé Gong MA - Fully Assessed Reason for Visit: Anticoagulation [8] Order(s):PROTHROMBIN TIME [SQPT] Order #: [id number] Prescriptions as of 06/20/2024 - warfarin (COUMADIN) 5 mg tablet Take 5 mg every Thu, Thu, Thu; 2.5 mg all other days or as directed by [facility] - tamsulosin (FLOMAX) 0.4 mg Take 1 capsule by mouth daily at bedtime. - cholecalciferol, vitamin D3, (VITAMIN D3 ORAL) Take by mouth. - carbidopa-levodopa (SINEMET) 25-100 mg per tablet Take 2 tablets by mouth three times a day. - nitroglycerin sublingual (NITROQUICK) 0.4 mg SL tablet Dissolve 1 tablet under the tongue every 5 minutes as needed for chest pain. - metoprolol tartrate, short acting, (LOPRESSOR) 25 mg tablet Take 0.5 tablets by mouth two times a day. - losartan (COZAAR) 50 mg tablet Take 1 tablet by mouth once daily. - spironolactone (ALDACTONE) 25 mg tablet Take 1 tablet by mouth once daily. Dr. Escobar - atorvastatin (LIPITOR) 80 mg tablet Take 1 tablet by mouth once daily. Takes 1/2 tab Thu, Thu AND Thursday. 1 tab rest of days - aspirin(ECOTRIN LOW STRENGTH 81 MG TAB) Take one(1) tablet daily. Meds Comments as of 07/10/2023: Appointment needed for any medication refill. Problem List As Of Date 06/20/2024 Noted Resolved Coronary atherosclerosis [I25.10] 10/30/2004 PURE HYPERCHOLESTEROLEM [E78.00] 10/30/2004 Essential hypertension [I10] 10/30/2004 Obesity, unspecified [E66.9] 05/12/2008 08/13/2021 Benign neoplasm of colon [D12.6] 07/18/2008 08/15/2013 Impaired fasting glucose [R73.01] 08/15/2013 Vasomotor rhinitis [J30.0] 03/05/2016 04/23/2017 S/P CABG x 2 [Z95.1] 10/31/2016 LV (left ventricular) mural thrombus following *04/27/2017 Cerebral ventriculomegaly [G93.89] 03/27/2018 Dizziness [R42] 04/26/2018 prison current use of anticoagulant [Z79.01]07/29/2018 Obesity, Class I, BMI 30-34.9 [E66.811] 08/20/2018 Ischemic cardiomyopathy [I25.5] 09/02/2019 Presence of implantable cardioverter-defibrilla* 09/02/2019 Abnormality of gait [R26.9] 01/02/2020 Nocturia [R35.1] 07/31/2023 Parkinsonism (HCC) [G20.C] 07/31/2023 Encounter Status:Closed by SHONA GOINS on 06/20/24 Normal [facility] normalized rat io (INR) calculationon 06-20-2024 INR Coag (Bld) [Relative time] 1.9 {INR} [facility] PT panel Coag (PPP)on 2024 [facility] Prothrombin Time w/INRon INR Coag (PPP) [Relative time] 1.9 {INR} Normal [facility] Comment on above: Performed By: #### L 498.5920 #### [facility] [address] [place], [place], [id number] PT Coag (PPP) [Time] 22.1 s High 11.7-14.9 [facility] Comment on above: Performed By: #### L 300.3900 #### [facility] [address] [place], [address] Prothrombin timeOrdered By: Jordy Saucedo on 06-20-2024 PT Coag (PPP) [Time] 22.1 s High 11.7-14.9 [facility] CNPNon 05-27-2024 CNPN Telephone (INTMWS) -------- OSMAN JONES ([id number]) 1945 M Date Time Provider Department 05/27/24 JORDY SAUCEDO INTMWS During your visit today, we recorded the following information about you: Angelica Piña, HORACIO 05/27/2024 9:24 AM Signed Tangela with [facility] Outreach Lab called in and report they went out and did the Pts INR on Thursday05/23/24. She states they Ptt typically only gets it done once month. She states one time the provider ordered the Pt to get it done in 2 weeks and the Pt refused. She was asking when the provider would like to have them redraw the INR. I don't see the lab in scanned documents or uploaded into our documents section as external documents. Please call and advise. She states they are only there until 1130, after that leave a VM. Jordy Saucedo MD 05/27/2024 10:21 AM Signed See anticoagulation note 05/23/24. Next INR recommended 4 weeks from that one. Angelica Piña, RN 05/27/2024 10:30 AM Signed Marcos with [facility] Outreach Lab called and is notified of providers instructions. He voices understanding and states he will put the Pt down for 06/20/24. Angelica Piña RN Allergies As of Date: 05/27/2024 Noted Allergy Reaction LISINOPRIL 01/05/2019 3 - Cough Date Reviewed: 11/27/2023 Reviewed by: Chloé Gong MA - Fully Assessed Reason for Visit: Lab Orders [4378] Prescriptions as of 05/27/2024 - warfarin (COUMADIN) 5 mg tablet Take 5 mg every Thu, Thu, Thu; 2.5 mg all other days or as directed by [facility] - tamsulosin (FLOMAX) 0.4 mg Take 1 capsule by mouth daily at bedtime. - cholecalciferol, vitamin D3, (VITAMIN D3 ORAL) Take by mouth. - carbidopa-levodopa (SINEMET) 25-100 mg per tablet Take 2 tablets by mouth three times a day. - nitroglycerin sublingual (NITROQUICK) 0.4 mg SL tablet Dissolve 1 tablet under the tongue every 5 minutes as needed for chest pain. - metoprolol tartrate, short acting, (LOPRESSOR) 25 mg tablet Take 0.5 tablets by mouth two times a day. - losartan (COZAAR) 50 mg tablet Take 1 tablet by mouth once daily. - spironolactone (ALDACTONE) 25 mg tablet Take 1 tablet by mouth once daily. Dr. Escobar - atorvastatin (LIPITOR) 80 mg tablet Take 1 tablet by mouth once daily. Takes 1/2 tab Thu, Thu AND Thursday. 1 tab rest of days - aspirin(ECOTRIN LOW STRENGTH 81 MG TAB) Take one(1) tablet daily. Meds Comments as of 07/10/2023: Appointment needed for any medication refill. Problem List As Of Date 05/27/2024 Noted Resolved Coronary atherosclerosis [I25.10] 10/30/2004 PURE HYPERCHOLESTEROLEM [E78.00] 10/30/2004 Essential hypertension [I10] 10/30/2004 Obesity, unspecified [E66.9] 05/12/2008 08/13/2021 Benign neoplasm of colon [D12.6] 07/18/2008 08/15/2013 Impaired fasting glucose [R73.01] 08/15/2013 Vasomotor rhinitis [J30.0] 03/05/2016 04/23/2017 S/P CABG x 2 [Z95.1] 10/31/2016 LV (left ventricular) mural thrombus following *04/27/2017 Cerebral ventriculomegaly [G93.89] 03/27/2018 Dizziness [R42] 04/26/2018 prison current use of anticoagulant [Z79.01]07/29/2018 Obesity, Class I, BMI 30-34.9 [E66.811] 08/20/2018 Ischemic cardiomyopathy [I25.5] 09/02/2019 Presence of implantable cardioverter-defibrilla* 09/02/2019 Abnormality of gait [R26.9] 01/02/2020 Nocturia [R35.1] 07/31/2023 Parkinsonism (HCC) [G20.C] 07/31/2023 Encounter Status:Closed by ANGELICA PIÑA [facility]27/[facility] C[facility] Tele[facility] (INTMWS) -------- OSMAN JONES ([id number]) 1945 M Date Time Provider Department 05/23/24 JORDY SAUCEDO INTWS During your visit today, we recorded the following information about you: Shona Goins LPN 05/23/2024 2:50 PM Signed Last INR: 2.1 05/23/2024 INR draw from [facility] out reach lab Current dose of coumadin is: 5 mg Thu and . 2.5 mg Thu, Thu, Thu, Thu, and Saturdays. . . Last date of dose change: 03/14/24. Previous INR (date and result): 04/25/24 was 2.6 Additional Clinical Information or narrative: INR goal is 2-3. Pt findings are negative. NEED TO LET PT KNOW OF COUMADIN INSTRUCTIONS AND OUTREACH LAB AT [facility] WHEN TO DRAW INR AGAIN. Call [facility] outreach lab at [phone]. Jordy Saucedo MD 05/23/2024 6:16 PM Signed Continue Coumadin dose. INR in 4 weeks. Angelica Piña RN 05/23/2024 6:44 PM Signed Pt called and is notified of providers results and instructions. Pt voices understanding. Updated Anticoag tracker. Angelica Piña RN Allergies As of Date: 05/23/2024 Noted Allergy Reaction LISINOPRIL 01/05/2019 3 - Cough Date Reviewed: 11/27/2023 Reviewed by: Chloé Gong MA - Fully Assessed Reason for Visit: Anticoagulation [8] Order(s):PROTHROMBIN TIME [SQPT] Order #: [id number] Prescriptions as of 05/23/2024 - warfarin (COUMADIN) 5 mg tablet Take 5 mg every Thu, Thu, Thu; 2.5 mg all other days or as directed by [facility] - tamsulosin (FLOMAX) 0.4 mg Take 1 capsule by mouth daily at bedtime. - cholecalciferol, vitamin D3, (VITAMIN D3 ORAL) Take by mouth. - carbidopa-levodopa (SINEMET) 25-100 mg per tablet Take 2 tablets by mouth three times a day. - nitroglycerin sublingual (NITROQUICK) 0.4 mg SL tablet Dissolve 1 tablet under the tongue every 5 minutes as needed for chest pain. - metoprolol tartrate, short acting, (LOPRESSOR) 25 mg tablet Take 0.5 tablets by mouth two times a day. - losartan (COZAAR) 50 mg tablet Take 1 tablet by mouth once daily. - spironolactone (ALDACTONE) 25 mg tablet Take 1 tablet by mouth once daily. Dr. Escobar - atorvastatin (LIPITOR) 80 mg tablet Take 1 tablet by mouth once daily. Takes 1/2 tab Thu, Thu AND Thursday. 1 tab rest of days - aspirin(ECOTRIN LOW STRENGTH 81 MG TAB) Take one(1) tablet daily. Meds Comments as of 07/10/2023: Appointment needed for any medication refill. 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 [Z79.01]07/29/2018 Obesity, Class I, BMI 30-34.9 [E66.811] 08/20/2018 Ischemic cardiomyopathy [I25.5] 09/02/2019 Presence of implantable cardioverter-defibrilla* 09/02/2019 Abnormality of gait [R26.9] 01/02/2020 Nocturia [R35.1] 07/31/2023 Parkinsonism (HCC) [G20.C] 07/31/2023 Encounter Status:Closed by ANGELICA PIÑA on 05/23/24 Normal [facility] normalized rat io (INR) calculationon 05-23-2024 INR Coag (Bld) [Relative time] 2.1 {INR} [facility] PT panel Coag (PPP)on 2024 [facility] Prothrombin Time w/INRon INR Coag (PPP) [Relative time] 2.1 {INR} Normal [facility] Comment on above: Performed By: #### L [id number] #### [facility] [address] [facility]. [place], [place], [id number] PT Coag (PPP) [Time] 24.1 s High 11.7-14.9 [facility] Comment on above: Performed By: #### L [id number] #### [facility] [address] [place], [place], [id number] Prothrombin timeOrdered By: Jordy Saucedo on 05-23-2024 PT Coag (PPP) [Time] 24.1 s High 11.7-14.9 [facility] 04-25-2024 CNPN Telephone (INTMWS) -------- OSMAN JONES ([id number]) 1945 M Date Time Provider Department 04/25/24 JORDY SAUCEDO INTMWS During your visit today, we recorded the following information about you: Shona Goins LPN 04/25/2024 1:32 PM Signed Last INR: 2.6 04/25/2024 from [facility] outreach lab Current dose of coumadin is: 5 mg Thu and . 2.5 mg Thu, Thu, Thu, Thu, and Saturdays. . Last date of dose change: 03/14/24. Previous INR (date and result): 04/04/24 was 2.0 Additional Clinical Information or narrative: INR goal is 2-3 pt findings are negative NEED TO LET PT KNOW OF COUMADIN INSTRUCTIONS AND OUTREACH LAB AT [facility] WHEN TO DRAW INR AGAIN. Call [facility] outreach lab at [phone] Jordy Saucedo MD 04/25/2024 2:03 PM Signed Continue Coumadin dose. INR in 4 weeks. Shona Goins LPN 04/25/2024 2:07 PM Signed Pt notified and message left to [facility] outreach lab with next INR draw. Allergies As of Date: 04/25/2024 Noted Allergy Reaction LISINOPRIL 01/05/2019 3 - Cough Date Reviewed: 11/27/2023 Reviewed by: Chloé Gong MA - Fully Assessed Reason for Visit: Anticoagulation [8] Order(s):PROTHROMBIN TIME [SQPT] Order #: [id number] Prescriptions as of 04/25/2024 - warfarin (COUMADIN) 5 mg tablet Take 5 mg every Thu, Thu, Thu; 2.5 mg all other days or as directed by [facility] - tamsulosin (FLOMAX) 0.4 mg Take 1 capsule by mouth daily at bedtime. - cholecalciferol, vitamin D3, (VITAMIN D3 ORAL) Take by mouth. - carbidopa-levodopa (SINEMET) 25-100 mg per tablet Take 2 tablets by mouth three times a day. - nitroglycerin sublingual (NITROQUICK) 0.4 mg SL tablet Dissolve 1 tablet under the tongue every 5 minutes as needed for chest pain. - metoprolol tartrate, short acting, (LOPRESSOR) 25 mg tablet Take 0.5 tablets by mouth two times a day. - losartan (COZAAR) 50 mg tablet Take 1 tablet by mouth once daily. - spironolactone (ALDACTONE) 25 mg tablet Take 1 tablet by mouth once daily. Dr. Escobar - atorvastatin (LIPITOR) 80 mg tablet Take 1 tablet by mouth once daily. Takes 1/2 tab Thu, Thu AND Thursday. 1 tab rest of days - aspirin(ECOTRIN LOW STRENGTH 81 MG TAB) Take one(1) tablet daily. Meds Comments as of 07/10/2023: Appointment needed for any medication refill. Problem List As Of Date 04/25/2024 Noted Resolved Coronary atherosclerosis [I25.10] 10/30/2004 PURE HYPERCHOLESTEROLEM [E78.00] 10/30/2004 Essential hypertension [I10] 10/30/2004 Obesity, unspecified [E66.9] 05/12/2008 08/13/2021 Benign neoplasm of colon [D12.6] 07/18/2008 08/15/2013 Impaired fasting glucose [R73.01] 08/15/2013 Vasomotor rhinitis [J30.0] 03/05/2016 04/23/2017 S/P CABG x 2 [Z95.1] 10/31/2016 LV (left ventricular) mural thrombus following *04/27/2017 Cerebral ventriculomegaly [G93.89] 03/27/2018 Dizziness [R42] 04/26/2018 prison current use of anticoagulant [Z79.01]07/29/2018 Obesity, Class I, BMI 30-34.9 [E66.811] 08/20/2018 Ischemic cardiomyopathy [I25.5] 09/02/2019 Presence of implantable cardioverter-defibrilla* 09/02/2019 Abnormality of gait [R26.9] 01/02/2020 Nocturia [R35.1] 07/31/2023 Parkinsonism (HCC) [G20.C] 07/31/2023 Encounter Status:Closed by SHONA GOINS on 04/25/24 Normal [facility] normalized rat io (INR) calculationon 04-25-2024 INR Coag (Bld) [Relative time] 2.6 {INR} [facility] PT panel Coag (PPP)on 2024 [facility] Prothrombin Time w/INRon INR Coag (PPP) [Relative time] 2.6 {INR} Normal [facility] Comment on above: Performed By: #### L [id number] #### [facility] [address] [facility] [place], [address] PT Coag (PPP) [Time] 28.3 s High 11.7-14.9 [facility] Comment on above: Performed By: #### L [id number] #### [facility] [address], [address] Prothrombin timeOrdered By: Jordy Saucedo on 04-25-2024 PT Coag (PPP) [Time] 28.3 s High 11.7-14.9 [facility] CNPNon 04-15-2024 [facility] Telephone (INTMWS) -------- OSMAN JONES ([id number]) 1945 M Date Time Provider Department 04/15/24 JORDY SAUCEDO INTWS During your visit today, we recorded the following information about you: Shona Goins LPN 04/15/2024 11:12 AM Signed Pcp rec'd form from [facility]. They help manage pt's chronic diseases. Reviewed with pt and pt is asking for pcp to complete this. It was done and faxed back. Allergies As of Date: 04/15/2024 Noted Allergy Reaction LISINOPRIL 01/05/2019 3 - Cough Date Reviewed: 11/27/2023 Reviewed by: Chloé Gong MA - Fully Assessed Reason for Visit: Forms [913] Prescriptions as of 04/15/2024 - warfarin (COUMADIN) 5 mg tablet Take 5 mg every Thu, Thu, Thu; 2.5 mg all other days or as directed by [facility] - tamsulosin (FLOMAX) 0.4 mg Take 1 capsule by mouth daily at bedtime. - cholecalciferol, vitamin D3, (VITAMIN D3 ORAL) Take by mouth. - carbidopa-levodopa (SINEMET) 25-100 mg per tablet Take 2 tablets by mouth three times a day. - nitroglycerin sublingual (NITROQUICK) 0.4 mg SL tablet Dissolve 1 tablet under the tongue every 5 minutes as needed for chest pain. - metoprolol tartrate, short acting, (LOPRESSOR) 25 mg tablet Take 0.5 tablets by mouth two times a day. - losartan (COZAAR) 50 mg tablet Take 1 tablet by mouth once daily. - spironolactone (ALDACTONE) 25 mg tablet Take 1 tablet by mouth once daily. Dr. Escobar - atorvastatin (LIPITOR) 80 mg tablet Take 1 tablet by mouth once daily. Takes 1/2 tab Thu, Thu AND Thursday. 1 tab rest of days - aspirin(ECOTRIN LOW STRENGTH 81 MG TAB) Take one(1) tablet daily. Meds Comments as of 07/10/2023: Appointment needed for any medication refill. 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 [Z79.01]07/29/2018 Obesity, Class I, BMI 30-34.9 [E66.811] 08/20/2018 Ischemic cardiomyopathy [I25.5] 09/02/2019 Presence of implantable cardioverter-defibrilla* 09/02/2019 Abnormality of gait [R26.9] 01/02/2020 Nocturia [R35.1] 07/31/2023 Parkinsonism (HCC) [G20.C] 07/31/2023 Encounter Status:Closed by SHONA GOINS on 04/15/24 [facility] 04-04-2024 CNPN Telephone (INTMWS) -------- OSMAN JONES ([id number]) 1945 M Date Time Provider Department 04/04/24 JORDY SAUCEDO INTWS During your visit today, we recorded the following information about you: Shona Goins LPN 04/04/2024 2:08 PM Signed Last INR: 2.0 04/04/2024 per [facility] outreach lab Current dose of coumadin is: 5 mg Thu and . 2.5 mg Thu, Thu, Thu, Thu, and Saturdays. . Last date of dose change: 03/14/24. Previous INR (date and result): 03/14/24 was 3.2 Additional Clinical Information or narrative: INR goal is 2-3. Need to let [facility] outreach lab know when to check INR and call pt with instructions. Call them at [phone] and leave a message. Pt findings are negative. NEED TO LET PT KNOW OF COUMADIN INSTRUCTIONS AND OUTREACH LAB AT [facility] WHEN TO DRAW INR AGAIN. Jordy Saucedo MD 04/05/2024 5:05 PM Signed Continue Coumadin dose. INR in 3 weeks. Shona Goins LPN 04/06/2024 9:04 AM Signed Pt and [facility] outreach lab notified. Allergies As of Date: 04/04/2024 Noted Allergy Reaction LISINOPRIL 01/05/2019 3 - Cough Date Reviewed: 11/27/2023 Reviewed by: Chloé Gong MA - Fully Assessed Reason for Visit: Anticoagulation [8] Order(s):PROTHROMBIN TIME [SQPT] Order #: [id number] Prescriptions as of 04/06/2024 - warfarin (COUMADIN) 5 mg tablet Take 5 mg every Thu, Thu, Thu; 2.5 mg all other days or as directed by [facility] - tamsulosin (FLOMAX) 0.4 mg Take 1 capsule by mouth daily at bedtime. - cholecalciferol, vitamin D3, (VITAMIN D3 ORAL) Take by mouth. - carbidopa-levodopa (SINEMET) 25-100 mg per tablet Take 2 tablets by mouth three times a day. - nitroglycerin sublingual (NITROQUICK) 0.4 mg SL tablet Dissolve 1 tablet under the tongue every 5 minutes as needed for chest pain. - metoprolol tartrate, short acting, (LOPRESSOR) 25 mg tablet Take 0.5 tablets by mouth two times a day. - losartan (COZAAR) 50 mg tablet Take 1 tablet by mouth once daily. - spironolactone (ALDACTONE) 25 mg tablet Take 1 tablet by mouth once daily. Dr. Escobar - atorvastatin (LIPITOR) 80 mg tablet Take 1 tablet by mouth once daily. Takes 1/2 tab Thu, Thu AND Thursday. 1 tab rest of days - aspirin(ECOTRIN LOW STRENGTH 81 MG TAB) Take one(1) tablet daily. Meds Comments as of 07/10/2023: Appointment needed for any medication refill. Problem List As Of Date 04/04/2024 Noted Resolved Coronary atherosclerosis [I25.10] 10/30/2004 PURE HYPERCHOLESTEROLEM [E78.00] 10/30/2004 Essential hypertension [I10] 10/30/2004 Obesity, unspecified [E66.9] 05/12/2008 08/13/2021 Benign neoplasm of colon [D12.6] 07/18/2008 08/15/2013 Impaired fasting glucose [R73.01] 08/15/2013 Vasomotor rhinitis [J30.0] 03/05/2016 04/23/2017 S/P CABG x 2 [Z95.1] 10/31/2016 LV (left ventricular) mural thrombus following *04/27/2017 Cerebral ventriculomegaly [G93.89] 03/27/2018 Dizziness [R42] 04/26/2018 prison current use of anticoagulant [Z79.01]07/29/2018 Obesity, Class I, BMI 30-34.9 [E66.811] 08/20/2018 Ischemic cardiomyopathy [I25.5] 09/02/2019 Presence of implantable cardioverter-defibrilla* 09/02/2019 Abnormality of gait [R26.9] 01/02/2020 Nocturia [R35.1] 07/31/2023 Parkinsonism (HCC) [G20.C] 07/31/2023 Encounter Status:Closed by SHONA GOINS on 04/06/24 Normal [facility] normalized rat io (INR) calculationon 04-04-2024 INR Coag (Bld) [Relative time] 2.0 {INR} [facility] PT panel Coag (PPP)on 2024 [facility] Prothrombin Time w/INRon INR Coag (PPP) [Relative time] 2.0 {INR} Normal [facility] Comment on above: Performed By: #### L [id number] #### [facility] [address] [place], [place], [id number] PT Coag (PPP) [Time] 23.2 s High 11.7-14.9 [facility] Comment on above: Performed By: #### L [id number] #### [facility] [address] [place], [address] Prothrombin timeOrdered By: Jordy Saucedo on 04-04-2024 PT Coag (PPP) [Time] 23.2 s High 11.7-14.9 [facility] CNPNon 03-14-2024 CNPN Telephone (INTMWS) -------- OSMAN JONES ([id number]) 1945 M Date Time Provider Department 03/14/24 JORDY SAUCEDO INTMWS During your visit today, we recorded the following information about you: Shona Goins LPN 03/14/2024 1:34 PM Signed Last INR: 3.2 03/14/2024 per [facility] outreach lab Current dose of coumadin is: 5 mg Thu, , Thu and 2.5 mg Sun, Thu, Thu, Thu. . Last date of dose change: .02/29/24 Previous INR (date and result): 02/29/24 was 3.4 Additional Clinical Information or narrative: INR goal is 2-3. Need to let [facility] outreach lab know when to check INR and call pt with instructions. Call them at [phone] and leave a message. Pt reports findings are negative. Jordy Saucedo MD 03/14/2024 3:29 PM Signed Decrease Coumadin dose 5 mg Thu and . 2.5 mg Sun, Thu, Thu, Thu, and Saturdays. INR in 3 weeks. Shona Goins LPN 03/14/2024 3:41 PM Signed Pt notified and message left to [facility] out reach lab to next INR due in 3 weeks. Allergies As of Date: 03/14/2024 Noted Allergy Reaction LISINOPRIL 01/05/2019 3 - Cough Date Reviewed: 11/27/2023 Reviewed by: Chloé Gong MA - Fully Assessed Reason for Visit: Anticoagulation [8] Order(s):PROTHROMBIN TIME [SQPT] Order #: [id number] Prescriptions as of 03/14/2024 - tamsulosin (FLOMAX) 0.4 mg Take 1 capsule by mouth daily at bedtime. - cholecalciferol, vitamin D3, (VITAMIN D3 ORAL) Take by mouth. - carbidopa-levodopa (SINEMET) 25-100 mg per tablet Take 2 tablets by mouth three times a day. - nitroglycerin sublingual (NITROQUICK) 0.4 mg SL tablet Dissolve 1 tablet under the tongue every 5 minutes as needed for chest pain. - metoprolol tartrate, short acting, (LOPRESSOR) 25 mg tablet Take 0.5 tablets by mouth two times a day. - losartan (COZAAR) 50 mg tablet Take 1 tablet by mouth once daily. - spironolactone (ALDACTONE) 25 mg tablet Take 1 tablet by mouth once daily. Dr. Escobar - atorvastatin (LIPITOR) 80 mg tablet Take 1 tablet by mouth once daily. Takes 1/2 tab Thu, Thu AND Thursday. 1 tab rest of days - warfarin (COUMADIN) 5 mg tablet Take 5 mg every Thu, Thu, Thu; 2.5 mg all other days or as directed by [facility] - aspirin(ECOTRIN LOW STRENGTH 81 MG TAB) Take one(1) tablet daily. Meds Comments as of 07/10/2023: Appointment needed for any medication refill. 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 [Z79.01]07/29/2018 Obesity, Class I, BMI 30-34.9 [E66.811] 08/20/2018 Ischemic cardiomyopathy [I25.5] 09/02/2019 Presence of implantable cardioverter-defibrilla* 09/02/2019 Abnormality of gait [R26.9] 01/02/2020 Nocturia [R35.1] 07/31/2023 Parkinsonism (HCC) [G20.C] 07/31/2023 Encounter Status:Closed by SHONA GOINS on 03/14/24 Normal [facility] normalized rat io (INR) calculationon 03-14-2024 INR Coag (Bld) [Relative time] 3.2 {INR} [facility] PT panel Coag (PPP)on 2024 [facility] Prothrombin Time w/INRon INR Coag (PPP) [Relative time] 3.2 {INR} Normal [facility] Comment on above: Performed By: #### L [id number] #### [facility] [address] [place], [place], [address] Prothrombin timeOrdered By: Jordy Saucedo on 03-14-2024 PT Coag (PPP) [Time] 33.3 s High 11.7-14.9 [facility] Comment on above: Performed By: #### L [id number] #### [facility] [address] [place], [place], [address] [facility]20[facility] Telephone (INTMWS) -------- OSMAN JONES ([id number]) 1945 Date Time Provider Department 02/29/24 EDITH POWER M INTWS During your visit today, we recorded the following information about you: Haylee Rock LPN 02/29/2024 12:25 PM Signed Last INR: INR 3.4 02/29/2024 Current dose of coumadin is: 5 mg Tue, , Sat and 2.5 mg Sun, Mon, Wed, Fri. . Last date of dose change: 01/05/24. Previous INR (date and result): 02/01/24 2.6 Additional Clinical Information or narrative: INR goal is 2-3. Need to call outreach lab at [facility] at [phone] to let them know when the next INR draw is. Pt findings are negative. Edith Power APRN.CNP 02/29/2024 1:11 PM Signed Hold today's dose. Resume tomorrow at normal dosing. Recheck in two weeks Edith Power APRN.Cece Reveles MA 02/29/2024 1:54 PM Signed Spoke to patient who verbalizes understanding. Called [facility] outreach lab and tracker updated Cece Mackey MA Allergies As of Date: 02/29/2024 Noted Allergy Reaction LISINOPRIL 01/05/2019 3 - Cough Date Reviewed: 11/27/2023 Reviewed by: Chloé Gong MA - Fully Assessed Reason for Visit: Anticoagulation [8] Order(s):PROTHROMBIN TIME [SQPT] Order #: [id number] Prescriptions as of 02/29/2024 - tamsulosin (FLOMAX) 0.4 mg Take 1 capsule by mouth daily at bedtime. - cholecalciferol, vitamin D3, (VITAMIN D3 ORAL) Take by mouth. - carbidopa-levodopa (SINEMET) 25-100 mg per tablet Take 2 tablets by mouth three times a day. - nitroglycerin sublingual (NITROQUICK) 0.4 mg SL tablet Dissolve 1 tablet under the tongue every 5 minutes as needed for chest pain. - metoprolol tartrate, short acting, (LOPRESSOR) 25 mg tablet Take 0.5 tablets by mouth two times a day. - losartan (COZAAR) 50 mg tablet Take 1 tablet by mouth once daily. - spironolactone (ALDACTONE) 25 mg tablet Take 1 tablet by mouth once daily. Dr. Escobar - atorvastatin (LIPITOR) 80 mg tablet Take 1 tablet by mouth once daily. Takes 1/2 tab Thu, Thu AND Thursday. 1 tab rest of days - warfarin (COUMADIN) 5 mg tablet Take 5 mg every Thu, e, Thu; 2.5 mg all other days or as directed by [facility] - aspirin(ECOTRIN LOW STRENGTH 81 MG TAB) Take one(1) tablet daily. Meds Comments as of 07/10/2023: Appointment needed for any medication refill. 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 [Z79.01]07/29/2018 Obesity, Class I, BMI 30-34.9 [E66.811] 08/20/2018 Ischemic cardiomyopathy [I25.5] 09/02/2019 Presence of implantable cardioverter-defibrilla* 09/02/2019 Abnormality of gait [R26.9] 01/02/2020 Nocturia [R35.1] 07/31/2023 Parkinsonism (HCC) [G20.C] 07/31/2023 Encounter Status:Closed by CECE MACKEY on 02/29/24 Normal [facility] normalized rat io (INR) calculationon 02-29-2024 INR Coag (Bld) [Relative time] 3.4 {INR} [facility] PT panel Coag (PPP)on 2023 Interpretation and review of laboratory results Abnormal [facility] Prothrombin Time w/INRon INR Coag (PPP) [Relative time] 3.4 {INR} Normal [facility] Comment on above: Performed By: #### L [id number] #### [facility] [place], [address] PT Coag (PPP) [Time] 34.4 s High 11.7-14.9 [facility] Comment on above: Performed By: #### L [id number] #### [facility] [address] [place], [address] Prothrombin timeOrdered By: Jordy Saucedo on 02-29-2024 PT Coag (PPP) [Time] 34.4 s High 11.7-14.9 [facility] CNPNon 02-01-2024 CNPN Telephone (INTMWS) -------- OSMAN JONES ([id number]) 1945 M Date Time Provider Department 02/01/24 JORDY SAUCEDO INTMWS During your visit today, we recorded the following information about you: Shona Goins LPN 02/01/2024 12:59 PM Signed Last INR: 2.6 02/01/2024 Current dose of coumadin is: .5 mg e, , Sat and 2.5 mg Sun, Mon, Wed, Fri. Last date of dose change: 01/05/24. Previous INR (date and result): 01/05/24 was 1.3 Additional Clinical Information or narrative: INR goal is 2-3. Need to call outreach lab at [facility] at [phone] to let them know when the next INR draw is. Pt findings are negative. Jordy Saucedo MD 02/01/2024 2:12 PM Signed Continue Coumadin dose. INR in 4 weeks. Cielo Adnrews MA 02/01/2024 2:30 PM Signed Pt notified. Tracker updated. HARDIK Casillas Janice, LPN 02/01/2024 4:47 PM Signed Message left to [facility] lab for next draw. Allergies As of Date: 02/01/2024 Noted Allergy Reaction LISINOPRIL 01/05/2019 3 - Cough Date Reviewed: 11/27/2023 Reviewed by: Chloé Gong MA - Fully Assessed Reason for Visit: Anticoagulation [8] Order(s):PROTHROMBIN TIME [SQPT] Order #: [id number] Prescriptions as of 02/01/2024 - tamsulosin (FLOMAX) 0.4 mg Take 1 capsule by mouth daily at bedtime. - cholecalciferol, vitamin D3, (VITAMIN D3 ORAL) Take by mouth. - carbidopa-levodopa (SINEMET) 25-100 mg per tablet Take 2 tablets by mouth three times a day. - nitroglycerin sublingual (NITROQUICK) 0.4 mg SL tablet Dissolve 1 tablet under the tongue every 5 minutes as needed for chest pain. - metoprolol tartrate, short acting, (LOPRESSOR) 25 mg tablet Take 0.5 tablets by mouth two times a day. - losartan (COZAAR) 50 mg tablet Take 1 tablet by mouth once daily. - spironolactone (ALDACTONE) 25 mg tablet Take 1 tablet by mouth once daily. Dr. Escobar - atorvastatin (LIPITOR) 80 mg tablet Take 1 tablet by mouth once daily. Takes 1/2 tab Thu, Thu AND Thursday. 1 tab rest of days - warfarin (COUMADIN) 5 mg tablet Take 5 mg every Thu, Thu, Thu; 2.5 mg all other days or as directed by [facility] - aspirin(ECOTRIN LOW STRENGTH 81 MG TAB) Take one(1) tablet daily. Meds Comments as of 07/10/2023: Appointment needed for any medication refill. Problem List As Of Date 02/01/2024 Noted Resolved Coronary atherosclerosis [I25.10] 10/30/2004 PURE HYPERCHOLESTEROLEM [E78.00] 10/30/2004 Essential hypertension [I10] 10/30/2004 Obesity, unspecified [E66.9] 05/12/2008 08/13/2021 Benign neoplasm of colon [D12.6] 07/18/2008 08/15/2013 Impaired fasting glucose [R73.01] 08/15/2013 Vasomotor rhinitis [J30.0] 03/05/2016 04/23/2017 S/P CABG x 2 [Z95.1] 10/31/2016 LV (left ventricular) mural thrombus following *04/27/2017 Cerebral ventriculomegaly [G93.89] 03/27/2018 Dizziness [R42] 04/26/2018 prison current use of anticoagulant [Z79.01]07/29/2018 Obesity, Class I, BMI 30-34.9 [E66.811] 08/20/2018 Ischemic cardiomyopathy [I25.5] 09/02/2019 Presence of implantable cardioverter-defibrilla* 09/02/2019 Abnormality of gait [R26.9] 01/02/2020 Nocturia [R35.1] 07/31/2023 Parkinsonism (HCC) [G20.C] 07/31/2023 Encounter Status:Closed by CIELO ANDREWS on 02/01/24 Normal [facility] normalized rat io (INR) calculationon 02-01-2024 INR Coag (Bld) [Relative time] 2.6 {INR} [facility] PT panel Coag (PPP)on 2023 [facility] Prothrombin Time w/INRon INR Coag (PPP) [Relative time] 2.6 {INR} Normal [facility] Comment on above: Performed By: #### L [id number] #### [facility] [address] [place], [address] PT Coag (PPP) [Time] 27.8 s High 11.7-14.9 [facility] Comment on above: Performed By: #### L [id number] #### [facility] [address] [place], [address] Prothrombin timeOrdered By: Jordy Saucedo on 02-01-2024 PT Coag (PPP) [Time] 27.8 s High 11.7-14.9 [facility] Ramirez 01-05-2024 [facility] -------- OSMAN JONES ([id number]) 1945 M Date Time Provider Department 01/05/24 JORDY SAUCEDO INTMWS During your visit today, we recorded the following information about you: Shona Goins LPN 01/05/2024 12:10 PM Signed Last INR: 1.3 01/05/2024 [facility] outreach lab Current dose of coumadin is: HOLDING SINCE 01/01/24 but before that taking 5mg Tues,Thurs,Sat AND 2.5mg Sun,Mon,Thu,Thu Last date of dose change: 01/01/24. Previous INR (date and result): 01/01/24 was 4.2 Additional Clinical Information or narrative: INR goal is 2-3. Need to let [facility] Outreach Lab know when the next INR is due. Need to call them at [phone] with this info. Jordy Saucedo MD 01/05/2024 3:01 PM Signed Restart Coumadin dose. 5 mg Tue, Thurs, Sat and 2.5 mg Sun, Mon, Thu, Thu. INR in 1 week. Shona Goins LPN 01/05/2024 3:16 PM Signed Called pt an reviewed. He reports his insurance will only cover the INR monthly even if it was abnormal. Did not call [facility] out reach yet. THEY STILL NEED NOTIFIED. Tamia Carson LPN 01/06/2024 9:45 AM Signed Marcos/Patient Outreach will reach out to Patient for PT/INR draw. Alex Gillette LPN, LPN 01/07/2024 9:00 AM Signed Emma from [facility] Outreach lab calling stating pt had his inr drawn back to back d/t abnormal results. Per message below pt is to recheck in 1 week. She advises that pt is still refusing to do more lab draws for his inr d/t insurance only covering once a month. She is questioning what to do. Please advise can return call to outreach lab [phone]. EDITH Torres Victor H, MD 01/07/2024 10:08 AM Signed Document patient refusal. Do standing in INR order in one month. Tamia Carson LPN 01/07/2024 10:32 AM Signed Below left on Patient Outreach Lab vm. Tamia Carson LPN Allergies As of Date: 01/05/2024 Noted Allergy Reaction LISINOPRIL 01/05/2019 3 - Cough Date Reviewed: 11/27/2023 Reviewed by: Chloé Gong MA - Fully Assessed Reason for Visit: Anticoagulation [8] Order(s):PROTHROMBIN TIME [SQPT] Order #: [id number] Prescriptions as of 01/08/2024 - tamsulosin (FLOMAX) 0.4 mg Take 1 capsule by mouth daily at bedtime. - cholecalciferol, vitamin D3, (VITAMIN D3 ORAL) Take by mouth. - carbidopa-levodopa (SINEMET) 25-100 mg per tablet Take 2 tablets by mouth three times a day. - nitroglycerin sublingual (NITROQUICK) 0.4 mg SL tablet Dissolve 1 tablet under the tongue every 5 minutes as needed for chest pain. - metoprolol tartrate, short acting, (LOPRESSOR) 25 mg tablet Take 0.5 tablets by mouth two times a day. - losartan (COZAAR) 50 mg tablet Take 1 tablet by mouth once daily. - spironolactone (ALDACTONE) 25 mg tablet Take 1 tablet by mouth once daily. Dr. Escobar - atorvastatin (LIPITOR) 80 mg tablet Take 1 tablet by mouth once daily. Takes 1/2 tab Thu, Thu AND Thursday. 1 tab rest of days - warfarin (COUMADIN) 5 mg tablet Take 5 mg every Thu, Thu, Thu; 2.5 mg all other days or as directed by [facility] - aspirin(ECOTRIN LOW STRENGTH 81 MG TAB) Take one(1) tablet daily. Meds Comments as of 07/10/2023: Appointment needed for any medication refill. Problem List As Of Date 01/05/2024 Noted Resolved Coronary atherosclerosis [I25.10] 10/30/2004 PURE HYPERCHOLESTEROLEM [E78.00] 10/30/2004 Essential hypertension [I10] 10/30/2004 Obesity, unspecified [E66.9] 05/12/2008 08/13/2021 Benign neoplasm of colon [D12.6] 07/18/2008 08/15/2013 Impaired fasting glucose [R73.01] 08/15/2013 Vasomotor rhinitis [J30.0] 03/05/2016 04/23/2017 S/P CABG x 2 [Z95.1] 10/31/2016 LV (left ventricular) mural thrombus following *04/27/2017 Cerebral ventriculomegaly [G93.89] 03/27/2018 Dizziness [R42] 04/26/2018 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 [Z79.01]07/29/2018 Obesity, Class I, BMI 30-34.9 [E66.811] 08/20/2018 Ischemic cardiomyopathy [I25.5] 09/02/2019 Presence of implantable cardioverter-defibrilla* 09/02/2019 Abnormality of gait [R26.9] 01/02/2020 Nocturia [R35.1] 07/31/2023 Parkinsonism (HCC) [G20.C] 07/31/2023 Encounter Status:Closed by SHONA GOINS on 01/08/24 Normal [facility] PT panel Coag (PPP)on 2023 INR Coag (Bld) [Relative time] 1.3 {INR} [facility] Prothrombin Time w/INRon INR Coag (PPP) [Relative time] 1.3 {INR} Normal [facility] Comment on above: Performed By: #### L [id number] #### [facility] [address] [place], [address] PT Coag (PPP) [Time] 16.2 s High 11.7-14.9 [facility] Comment on above: Performed By: #### L [id number] #### [facility] [address] [place], [address] [facility] Telephone (INTMWS) -------- ROBERTOSMAN ([id number]) 1945 M Date Time Provider Department 01/01/24 JORDY SAUCEDO INTRajeshWS During your visit today, we recorded the following information about you: Venus Aguilera LPN 01/01/2024 11:14 AM Signed Patient?s identity has been confirmed by name and birthdate: Yes Call received from Valencia Momin with [facility] lab at 11:09 AM to report a critical value for INR with a result of 4.2 done at 10:[address] Saucedo was notified of the result at 11:10 AM. Jordy Zamora Lpn, MD 01/01/2024 11:36 AM Signed Hold coumadin till reordered. INR January 03Thursday. Yadira Spann MA 01/01/2024 12:01 PM Signed Patient notified. Blaine ([employer])Jackson 01/04/2024 2:48 PM Signed Patient's spouse called regarding INR draw. Nobody has come to the house to draw INR yet. Please advise spouse if they are coming or not. Transferred patient to [phone] Jackson Valladares ([employer]) Jackie Jeffries 01/04/2024 3:00 PM Signed Patient spouse is calling as INR by [facility] has not been drawn yet today, Please fax order to [facility]. Tamia Carson LPN 01/04/2024 3:28 PM Signed Called Outreach Lab, instructed to call Main Lab. Spoke to Olive/[facility] Main Lab, Outreach Lab has gone for the day, will not return until tomorrow morning. Talked to Osman, he is not willing/able to come in yet today, he is wanting Outreach Lab to come to him tomorrow morning. Instructed Patient that he can eat when have PT/INR labs drawn. Do you want Nurse to call Outreach Lab and have PT/INR drawn tomorrow, 01/04. Tamia Baptiste LPN, LPN 01/04/2024 3:[address] to [address] Saucedo, Outreach Lab can go out to the home tomorrow, they should have a Standing Order for PT/INR. Left message on Outreach Lab/Carlota, to go out to Patient's home tomorrow, 01/04 for PT/INR blood draw, if new order is needed please contact the office. Patient notified that Outreach Lab will contact him in the morning with time on 01/04 to come out to home for PT/INR blood draw. Belinda Miller LPN, LPN 01/05/2024 8:46 AM Signed Emma from [facility] Outreach calling said she had message that patient needed INR done today. Went over notes below aware INR had been 4.2 she will get INR done today. Allergies As of Date: 01/01/2024 Noted Allergy Reaction LISINOPRIL 01/05/2019 3 - Cough Date Reviewed: 11/27/2023 Reviewed by: Chloé Gong MA - Fully Assessed Reason for Visit: [facility] critical lab value [Other] Prescriptions as of 01/05/2024 - tamsulosin (FLOMAX) 0.4 mg Take 1 capsule by mouth daily at bedtime. - cholecalciferol, vitamin D3, (VITAMIN D3 ORAL) Take by mouth. - carbidopa-levodopa (SINEMET) 25-100 mg per tablet Take 2 tablets by mouth three times a day. - nitroglycerin sublingual (NITROQUICK) 0.4 mg SL tablet Dissolve 1 tablet under the tongue every 5 minutes as needed for chest pain. - metoprolol tartrate, short acting, (LOPRESSOR) 25 mg tablet Take 0.5 tablets by mouth two times a day. - losartan (COZAAR) 50 mg tablet Take 1 tablet by mouth once daily. - spironolactone (ALDACTONE) 25 mg tablet Take 1 tablet by mouth once daily. Dr. Escobar - atorvastatin (LIPITOR) 80 mg tablet Take 1 tablet by mouth once daily. Takes 1/2 tab Thu, Thu AND Thursday. 1 tab rest of days - warfarin (COUMADIN) 5 mg tablet Take 5 mg every Thu, e, Swapna; 2.5 mg all other days or as directed by [facility] Clinic - aspirin(ECOTRIN LOW STRENGTH 81 MG TAB) Take one(1) tablet daily. Meds Comments as of 07/10/2023: Appointment needed for any medication refill. 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 [Z79.01]07/29/2018 Obesity, Class I, BMI 30-34.9 [E66.811] 08/20/2018 Ischemic cardiomyopathy [I25.5] 09/02/2019 Presence of implantable cardioverter-defibrilla* 09/02/2019 Abnormality of gait [R26.9] 01/02/2020 Nocturia [R35.1] 07/31/2023 Parkinsonism (HCC) [G20.C] 07/31/2023 Encounter Status:Closed by YADIRA SPANN on 01/01/24 Normal [facility] Prothrombin Time w/INRon INR Coag (PPP) [Relative time] 4.2 {INR} Invalid Interpretation Code [facility] Comment on above: Order Comment: CRITI [employer]GE VALUE CALLED TO VENUS 01/01/24 1105 Valencia Sánchez. RESULTS READ BACK BY [facility]. Performed By: #### L [id number] #### [facility] [address] [place], [place], [address] PT Coag (PPP) [Time] 39.9 s High 11.7-14.9 [facility] Comment on above: Order Comment: CRITI SERGE VALUE CALLED TO VENUS 01/01/24 2223 Valencia Sánchez. RESULTS READ BACK BY [facility]. Performed By: #### L [id number] #### [facility] [address] [place], [address] [facility] -------- OSMAN JONES ([id number]) 1945 M Date Time Provider Department 12/10/23 JORDY SAUCEDO INTMWS During your visit today, we recorded the following information about you: Jason Cabello RN 12/10/2023 9:53 AM Signed Emma calls to request an order for PT/INR for monthly draws. Emma reports that they need a new order because the weekly order is not being accepted by insurance. Requests it be faxed to [phone]. Pended for review as requested. HORACIO Galindo Victor H, MD 12/10/2023 10:22 AM Signed Printed. Tamia Carson LPN 12/10/2023 10:58 AM Signed Printed order faxed. Tamia Carson LPN Allergies As of Date: 12/10/2023 Noted Allergy Reaction LISINOPRIL 01/05/2019 3 - Cough Date Reviewed: 11/27/2023 Reviewed by: Chloé Gong MA - Fully Assessed Reason for Visit: Orders [681] Primary Visit Diagnosis:LV (left ventricular) mural thrombus following ID (HCC) [I23.6] Other Visit Diagnoses:prison current use of anticoagulant therapy [Z79.01] Ischemic cardiomyopathy [I25.5] Order(s):PROTHROMBIN TIME [SQPT] Order #: [id number] STANDING Prescriptions as of 12/10/2023 - tamsulosin (FLOMAX) 0.4 mg Take 1 capsule by mouth daily at bedtime. - cholecalciferol, vitamin D3, (VITAMIN D3 ORAL) Take by mouth. - carbidopa-levodopa (SINEMET) 25-100 mg per tablet Take 2 tablets by mouth three times a day. - nitroglycerin sublingual (NITROQUICK) 0.4 mg SL tablet Dissolve 1 tablet under the tongue every 5 minutes as needed for chest pain. - metoprolol tartrate, short acting, (LOPRESSOR) 25 mg tablet Take 0.5 tablets by mouth two times a day. - losartan (COZAAR) 50 mg tablet Take 1 tablet by mouth once daily. - spironolactone (ALDACTONE) 25 mg tablet Take 1 tablet by mouth once daily. Dr. Escobar - atorvastatin (LIPITOR) 80 mg tablet Take 1 tablet by mouth once daily. Takes 1/2 tab Thu, Thu AND Thursday. 1 tab rest of days - warfarin (COUMADIN) 5 mg tablet Take 5 mg every Thu, Thu, Thu; 2.5 mg all other days or as directed by [facility] Clinic - aspirin(ECOTRIN LOW STRENGTH 81 MG TAB) Take one(1) tablet daily. Meds Comments as of 07/10/2023: Appointment needed for any medication refill. Problem List As Of Date 12/10/2023 Noted Resolved Coronary atherosclerosis [I25.10] 10/30/2004 PURE HYPERCHOLESTEROLEM [E78.00] 10/30/2004 Essential hypertension [I10] 10/30/2004 Obesity, unspecified [E66.9] 05/12/2008 08/13/2021 Benign neoplasm of colon [D12.6] 07/18/2008 08/15/2013 Impaired fasting glucose [R73.01] 08/15/2013 Vasomotor rhinitis [J30.0] 03/05/2016 04/23/2017 S/P CABG x 2 [Z95.1] 10/31/2016 LV (left ventricular) mural thrombus following *04/27/2017 Cerebral ventriculomegaly [G93.89] 03/27/2018 Dizziness [R42] 04/26/2018 prison current use of anticoagulant [Z79.01]07/29/2018 Obesity, Class I, BMI 30-34.9 [E66.811] 08/20/2018 Ischemic cardiomyopathy [I25.5] 09/02/2019 Presence of implantable cardioverter-defibrilla* 09/02/2019 Abnormality of gait [R26.9] 01/02/2020 Nocturia [R35.1] 07/31/2023 Parkinsonism (HCC) [G20.C] 07/31/2023 Encounter Status:Closed by TAMIA CARSON on 12/10/23 [facility] CNPNon 12-04-2023 CNPN Telephone (INTMWS) -------- OSMAN JONES ([id number]) 1945 M Date Time Provider Department 12/04/23 JORDY SAUCEDO INTMWS During your visit today, we recorded the following information about you: Rajesh Durbin RN 12/04/2023 10:26 AM Signed [facility] Outreach- Reports they go to patient's home to draw INR. The order says once a week (standing order from 07-31-23). Reports patient pays out of pocket, and does not want to do it every week unless they get an abnormal, and needs re-check. Patient agreeable to do monthly INR checks. Chloé Gong MA 12/04/2023 1:32 PM Signed TC to [facility]asper. No option to . Patient has been notified in separate encounter. Allergies As of Date: 12/04/2023 Noted Allergy Reaction LISINOPRIL 01/05/2019 3 - Cough Date Reviewed: 11/27/2023 Reviewed by: Chloé Gong MA - Fully Assessed Reason for Visit: INR order [Other] Prescriptions as of 12/04/2023 - tamsulosin (FLOMAX) 0.4 mg Take 1 capsule by mouth daily at bedtime. - cholecalciferol, vitamin D3, (VITAMIN D3 ORAL) Take by mouth. - carbidopa-levodopa (SINEMET) 25-100 mg per tablet Take 2 tablets by mouth three times a day. - nitroglycerin sublingual (NITROQUICK) 0.4 mg SL tablet Dissolve 1 tablet under the tongue every 5 minutes as needed for chest pain. - metoprolol tartrate, short acting, (LOPRESSOR) 25 mg tablet Take 0.5 tablets by mouth two times a day. - losartan (COZAAR) 50 mg tablet Take 1 tablet by mouth once daily. - spironolactone (ALDACTONE) 25 mg tablet Take 1 tablet by mouth once daily. Dr. Escobar - atorvastatin (LIPITOR) 80 mg tablet Take 1 tablet by mouth once daily. Takes 1/2 tab Thu, Thu AND Thursday. 1 tab rest of days - warfarin (COUMADIN) 5 mg tablet Take 5 mg every Thu, Thu, Thu; 2.5 mg all other days or as directed by [facility]in Clinic - aspirin(ECOTRIN LOW STRENGTH 81 MG TAB) Take one(1) tablet daily. Meds Comments as of 07/10/2023: Appointment needed for any medication refill. Problem List As Of Date 12/04/2023 Noted Resolved Coronary atherosclerosis [I25.10] 10/30/2004 PURE HYPERCHOLESTEROLEM [E78.00] 10/30/2004 Essential hypertension [I10] 10/30/2004 Obesity, unspecified [E66.9] 05/12/2008 08/13/2021 Benign neoplasm of colon [D12.6] 07/18/2008 08/15/2013 Impaired fasting glucose [R73.01] 08/15/2013 Vasomotor rhinitis [J30.0] 03/05/2016 04/23/2017 S/P CABG x 2 [Z95.1] 10/31/2016 LV (left ventricular) mural thrombus following *04/27/2017 Cerebral ventriculomegaly [G93.89] 03/27/2018 Dizziness [R42] 04/26/2018 prison current use of anticoagulant [Z79.01]07/29/2018 Obesity, Class I, BMI 30-34.9 [E66.9] 08/20/2018 Ischemic cardiomyopathy [I25.5] 09/02/2019 Presence of implantable cardioverter-defibrilla* 09/02/2019 Abnormality of gait [R26.9] 01/02/2020 Nocturia [R35.1] 07/31/2023 Parkinsonism (HCC) [G20.C] 07/31/2023 Encounter Status:Closed by CHLOÉ GONG on 12/04/23 [facility] Telephone (INTMWS) -------- OSMAN JONES ([id number]) 1945 M Date Time Provider Department 12/04/23 JORDY SAUCEDO INTMWS During your visit today, we recorded the following information about you: Haylee Rock LPN 12/04/2023 12:39 PM Signed Last INR: INR 2.7(EXT) 12/04/2023 Current dose of coumadin is: 5mg ,,Thu AND 2.5mg Sun,Mon,Thu,Thu . Last date of dose change: 09/17/23. Previous INR (date and result): 10/29/23 2.7 Additional Clinical Information or narrative: INR goal is 2-3 Need to let [facility] Outreach Lab know when the next INR is due. Need to call them at [phone] with this info. Edith Power APRN.[facility] 12/04/2023 1:06 PM Signed Dose: No Change. Repeat in INR in 1 month. Please see other phone encounter. Okay to change INR to monthly and as needed. Edith Power APRN.[facility] Chloé Gong MA 12/04/2023 1:32 PM Signed Patient notified, tracker updated. Allergies As of Date: 12/04/2023 Noted Allergy Reaction LISINOPRIL 01/05/2019 3 - Cough Date Reviewed: 11/27/2023 Reviewed by: Chloé Gong MA - Fully Assessed Reason for Visit: Anticoagulation [8] Order(s):PROTHROMBIN TIME [SQPT] Order #: [id number] Prescriptions as of 12/04/2023 - tamsulosin (FLOMAX) 0.4 mg Take 1 capsule by mouth daily at bedtime. - cholecalciferol, vitamin D3, (VITAMIN D3 ORAL) Take by mouth. - carbidopa-levodopa (SINEMET) 25-100 mg per tablet Take 2 tablets by mouth three times a day. - nitroglycerin sublingual (NITROQUICK) 0.4 mg SL tablet Dissolve 1 tablet under the tongue every 5 minutes as needed for chest pain. - metoprolol tartrate, short acting, (LOPRESSOR) 25 mg tablet Take 0.5 tablets by mouth two times a day. - losartan (COZAAR) 50 mg tablet Take 1 tablet by mouth once daily. - spironolactone (ALDACTONE) 25 mg tablet Take 1 tablet by mouth once daily. Dr. Escobar - atorvastatin (LIPITOR) 80 mg tablet Take 1 tablet by mouth once daily. Takes 1/2 tab Thu, Thu AND Thursday. 1 tab rest of days - warfarin (COUMADIN) 5 mg tablet Take 5 mg every Thu, Thu, Thu; 2.5 mg all other days or as directed by [facility] Clinic - aspirin(ECOTRIN LOW STRENGTH 81 MG TAB) Take one(1) tablet daily. Meds Comments as of 07/10/2023: Appointment needed for any medication refill. Problem List As Of Date 12/04/2023 Noted Resolved Coronary atherosclerosis [I25.10] 10/30/2004 PURE HYPERCHOLESTEROLEM [E78.00] 10/30/2004 Essential hypertension [I10] 10/30/2004 Obesity, unspecified [E66.9] 05/12/2008 08/13/2021 Benign neoplasm of colon [D12.6] 07/18/2008 08/15/2013 Impaired fasting glucose [R73.01] 08/15/2013 Vasomotor rhinitis [J30.0] 03/05/2016 04/23/2017 S/P CABG x 2 [Z95.1] 10/31/2016 LV (left ventricular) mural thrombus following *04/27/2017 Cerebral ventriculomegaly [G93.89] 03/27/2018 Dizziness [R42] 04/26/2018 prison current use of anticoagulant [Z79.01]07/29/2018 Obesity, Class I, BMI 30-34.9 [E66.9] 08/20/2018 Ischemic cardiomyopathy [I25.5] 09/02/2019 Presence of implantable cardioverter-defibrilla* 09/02/2019 Abnormality of gait [R26.9] 01/02/2020 Nocturia [R35.1] 07/31/2023 Parkinsonism (HCC) [G20.C] 07/31/2023 Encounter Status:Closed by CHLOÉ GONG on 12/04/23 Normal [facility] PT panel Coag (PPP)on 2023 INR Coag (Bld) [Relative time] 2.7(EXT) [facility] Prothrombin Time w/INRon INR Coag (PPP) [Relative time] 2.7 {INR} Normal [facility] Comment on above: Performed By: #### L [id number] #### [facility] [address] [place], [place], [address] PT Coag (PPP) [Time] 28.6 s High 11.7-14.9 [facility] Comment on above: Performed By: #### L [id number] #### [facility] [address] [place], [place], [address] CNPNon 12-03-2023 CNPN Telephone (INTMWS) -------- OSMAN JONES ([id number]) 1945 M Date Time Provider Department 12/03/23 JORDY SAUCEDO INTWS During your visit today, we recorded the following information about you: Jason Cabello, HORACIO 12/03/2023 9:29 AM Signed Emma with [facility] outreach lab calls to report they need a new prescription for PT/INR. Emma asking when lab is to be drawn again. Current order is for every 4 weeks. Faxed order from 07/31/2023. Emma reports they will draw PT/INR tomorrow. 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 - cholecalciferol, vitamin D3, (VITAMIN D3 ORAL) Take by mouth. - carbidopa-levodopa (SINEMET) 25-100 mg per tablet Take 2 tablets by mouth three times a day. - nitroglycerin sublingual (NITROQUICK) 0.4 mg SL tablet Dissolve 1 tablet under the tongue every 5 minutes as needed for chest pain. - metoprolol tartrate, short acting, (LOPRESSOR) 25 mg tablet Take 0.5 tablets by mouth two times a day. - losartan (COZAAR) 50 mg tablet Take 1 tablet by mouth once daily. - spironolactone (ALDACTONE) 25 mg tablet Take 1 tablet by mouth once daily. Dr. Escobar - atorvastatin (LIPITOR) 80 mg tablet Take 1 tablet by mouth once daily. Takes 1/2 tab Thu, Thu AND Thursday. 1 tab rest of days - warfarin (COUMADIN) 5 mg tablet Take 5 mg every Thu, Thu, Thu; 2.5 mg all other days or as directed by [facility] - aspirin(ECOTRIN LOW STRENGTH 81 MG TAB) Take one(1) tablet daily. Meds Comments as of 07/10/2023: Appointment needed for any medication refill. Problem List As Of Date 12/03/2023 Noted Resolved Coronary atherosclerosis [I25.10] 10/30/2004 PURE HYPERCHOLESTEROLEM [E78.00] 10/30/2004 Essential hypertension [I10] 10/30/2004 Obesity, unspecified [E66.9] 05/12/2008 08/13/2021 Benign neoplasm of colon [D12.6] 07/18/2008 08/15/2013 Impaired fasting glucose [R73.01] 08/15/2013 Vasomotor rhinitis [J30.0] 03/05/2016 04/23/2017 S/P CABG x 2 [Z95.1] 10/31/2016 LV (left ventricular) mural thrombus following *04/27/2017 Cerebral ventriculomegaly [G93.89] 03/27/2018 Dizziness [R42] 04/26/2018 prison current use of anticoagulant [Z79.01]07/29/2018 Obesity, Class I, BMI 30-34.9 [E66.9] 08/20/2018 Ischemic cardiomyopathy [I25.5] 09/02/2019 Presence of implantable cardioverter-defibrilla* 09/02/2019 Abnormality of gait [R26.9] 01/02/2020 Nocturia [R35.1] 07/31/2023 Parkinsonism (HCC) [G20.C] 07/31/2023 Encounter Status:Closed by JASON CABELLO [facility]03[facility] Tele[facility] (INTMWS) -------- OSMAN JONES ([id number]) 1945 M Date Time Provider Department 12/02/23 JORDY SAUCEDO INTWS During your visit today, we recorded the following information about you: Venus Aguilera LPN 12/02/2023 4:04 PM Signed called in to see when the nurse was coming next for pt's INR draw. did not know for sure who would be coming. I looked back and saw last draw was [facility] Outreach Lab and gave the phone number to call them and see when they were coming next. Venus Aguilera LPN Allergies As of Date: 12/02/2023 Noted Allergy Reaction LISINOPRIL 01/05/2019 3 - Cough Date Reviewed: 11/27/2023 Reviewed by: Chloé Gong MA - Fully Assessed Reason for Visit: Question [1327] Prescriptions as of 12/02/2023 - tamsulosin (FLOMAX) 0.4 mg Take 1 capsule by mouth daily at bedtime. - cholecalciferol, vitamin D3, (VITAMIN D3 ORAL) Take by mouth. - carbidopa-levodopa (SINEMET) 25-100 mg per tablet Take 2 tablets by mouth three times a day. - nitroglycerin sublingual (NITROQUICK) 0.4 mg SL tablet Dissolve 1 tablet under the tongue every 5 minutes as needed for chest pain. - metoprolol tartrate, short acting, (LOPRESSOR) 25 mg tablet Take 0.5 tablets by mouth two times a day. - losartan (COZAAR) 50 mg tablet Take 1 tablet by mouth once daily. - spironolactone (ALDACTONE) 25 mg tablet Take 1 tablet by mouth once daily. Dr. Escobar - atorvastatin (LIPITOR) 80 mg tablet Take 1 tablet by mouth once daily. Takes 1/2 tab Thu, Thu AND Thursday. 1 tab rest of days - warfarin (COUMADIN) 5 mg tablet Take 5 mg every Thu, Thu, Thu; 2.5 mg all other days or as directed by [facility] - aspirin(ECOTRIN LOW STRENGTH 81 MG TAB) Take one(1) tablet daily. Meds Comments as of 07/10/2023: Appointment needed for any medication refill. Problem List As Of Date 12/02/2023 Noted Resolved Coronary atherosclerosis [I25.10] 10/30/2004 PURE HYPERCHOLESTEROLEM [E78.00] 10/30/2004 Essential hypertension [I10] 10/30/2004 Obesity, unspecified [E66.9] 05/12/2008 08/13/2021 Benign neoplasm of colon [D12.6] 07/18/2008 08/15/2013 Impaired fasting glucose [R73.01] 08/15/2013 Vasomotor rhinitis [J30.0] 03/05/2016 04/23/2017 S/P CABG x 2 [Z95.1] 10/31/2016 LV (left ventricular) mural thrombus following *04/27/2017 Cerebral ventriculomegaly [G93.89] 03/27/2018 Dizziness [R42] 04/26/2018 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 [Z79.01]07/29/2018 Obesity, Class I, BMI 30-34.9 [E66.9] 08/20/2018 Ischemic cardiomyopathy [I25.5] 09/02/2019 Presence of implantable cardioverter-defibrilla* 09/02/2019 Abnormality of gait [R26.9] 01/02/2020 Nocturia [R35.1] 07/31/2023 Parkinsonism (HCC) [G20.C] 07/31/2023 Encounter Status:Closed by VENUS AGUILERA on 12/02/23 Normal [facility] CNOVon 11-27-2023 CNOV Office Visit (INTMWS ) -------- OSMAN JONES ([id number]) 1945 M Date Time Provider Department 11/27/23 3:40 PM BEBETO BALLESTEROS INTMWS During your visit today, we recorded the following information about you: Temperature Pulse Respiration Blood pressure 98.6 degrees 68/minute 20/minute 133/88 Bebeto Ballesteros, [employer]UMMER.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 11/27/2023 5:01 PM Signed SUBJECTIVE: Depression Screening Never done Anxiety Screening Never done Advance Directive Discussion Never done Influenza Vaccine(1) due on 11/08/2023 HPI Osman Jones is a 77 year old male. PMH significant for 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) Cerebral Ventriculomegaly Dizziness prison current use of anticoagulant Obesity, Class I, Bmi 30-34.9 Ischemic Cardiomyopathy Presence of Implantable Cardioverter-Defibrillat or (Icd) Abnormality of Gait Nocturia Parkinsonism (Hcc) Presents with SO. States advised by [facility] provider to see PCP for skin problem. Today reports he was seen at the [place] provider office on November 18, 2023. Noted that right and left ankles and lower legs were red and swollen. Patient states that they were warm as well. He reports no treatment changes at the time of the visit. States he was advised to follow-up with primary care provider here. On arrival today he notes he has a couple of scabbed over areas on his ankles. No swelling is present in the ankles. Not painful warm or swollen Osman Jones is a 77 year old male who presents with complaint of Review of Systems Constitutional: Negative. Objective BP 133/88 Pulse 68 Temp 37 ?C (98.6 ?F) (Temporal) Resp 20 Physical Exam Vitals and nursing note reviewed. Constitutional: Appearance: Normal appearance. HENT: Head: Normocephalic and atraumatic. Eyes: Conjunctiva/sclera: Conjunctivae normal. Cardiovascular: Rate and Rhythm: Normal rate. Pulmonary: Effort: Pulmonary effort is normal. Skin: General: Skin is warm and dry. Comments: 2 small scabbed areas over right and left ankle, healing, no erythema warmth or swelling is present. Neurological: Mental Status: He is alert. ALLERGIES Allergen Reactions Lisinopril Cough Medication tamsulosin (FLOMAX) 0.4 mg Take 1 capsule by mouth daily at bedtime. cholecalciferol, vitamin D3, (VITAMIN D3 ORAL) Take by mouth. carbidopa-levodopa (SINEMET) 25-100 mg per tablet Take 2 tablets by mouth three times a day. nitroglycerin sublingual (NITROQUICK) 0.4 mg SL tablet Dissolve 1 tablet under the tongue every 5 minutes as needed for chest pain. metoprolol tartrate, short acting, (LOPRESSOR) 25 mg tablet Take 0.5 tablets by mouth two times a day. losartan (COZAAR) 50 mg tablet Take 1 tablet by mouth once daily. spironolactone (ALDACTONE) 25 mg tablet Take 1 tablet by mouth once daily. Dr. Escobar atorvastatin (LIPITOR) 80 mg tablet Take 1 tablet by mouth once daily. Takes 1/2 tab Thu, Thu AND Thursday. 1 tab rest of days warfarin (COUMADIN) 5 mg tablet Take 5 mg every Thu, e, Swapna; 2.5 mg all other days or as directed by [facility] aspirin(ECOTRIN LOW STRENGTH 81 MG TAB) Take one(1) tablet daily. 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 09/2013: Cardiac cath EF 35-40%. LAD mid-vessel lesion. CABG recommended. Dizziness 04/26/2018 Essential hypertension 10/30/2004 History of agent [place] exposure 1970 Hypertrophy of breast 10/30/2004 Impaired fasting glucose 08/15/2013 Ischemic cardiomyopathy 09/02/2019 LV (left ventricular) mural thrombus following ID ([facility]) 04/23/2017 OBESITY NOS 05/12/2008 Down 7 pounds as of 05-15: gained 4 back as of 08-15 Parkinsonism ([facility]) 07/31/2023 Presence of implantable cardioverter-defibrillat or (ICD) 09/02/2019 Pure hypercholesterolemia 10/30/2004 S/P CABG x 2 10/31/2016 CABG on October 22, 2016 at [facility] per Dr. Levin consisting of left internal mammary artery to left anterior descending coronary artery and reverse saphenous vein graft to first obtuse marginal coronary artery. Spondylosis of lumbar region without myelopathy or radiculopathy 02/21/2023 Social History Tobacco Use Smoking status: Former Current packs/day: 0.00 Average packs/day: 0.3 packs/day for 15.0 years (3.8 ttl pk-yrs) Types: Cigarettes Start date: 03/09/1984 Quit date: 03/09/1999 Years since quittin.7 Smokeless tobacco: Never Vaping Use Vaping status: Never Used Substance Use Topics Alcohol use: No Drug use: No ASSESSMENT/PLAN: 1. Rash and no (more content not included)... Normal [facility] CNPCarina 10-29-2023 CNPN Telephone (INTMWS) -------- OSMAN JONES ([id number]) 1945 Date Time Provider Department 10/29/23 JORDY SAUCEDO INTMWS During your visit today, we recorded the following information about you: Tamia Carson LPN 10/29/2023 3:12 PM Signed Last INR: INR 2.7 10/01/2023 Current dose of coumadin is: 5mg Tues,Thurs,Sat AND 2.5mg Sun,Mon,Thu,Thu Last date of dose change: 09/17/2023 Previous INR (date and result): 10/01/2023 Additional Clinical Information or narrative: INR goal is 2-3 Need to let [facility] Outreach Lab know when the next INR is due. Need to call them at [phone] with this info. Pt findings are negative Need to call spouse back with instructions at [phone]. Jordy Coughlin LPN, MD 10/29/2023 7:23 PM Signed Continue Coumadin dose. INR in 4 weeks. Haylee Rock LPN 10/30/2023 10:04 AM Signed PATIENT NOTIFIED OF SAME. Tracker has been updated. Allergies As of Date: 10/29/2023 Noted Allergy Reaction LISINOPRIL 01/05/2019 3 - Cough Date Reviewed: 10/23/2023 Reviewed by: Candi Boland MA - Fully Assessed Reason for Visit: Anticoagulation [8] Prescriptions as of 10/30/2023 - tamsulosin (FLOMAX) 0.4 mg Take 1 capsule by mouth daily at bedtime. - cholecalciferol, vitamin D3, (VITAMIN D3 ORAL) Take by mouth. - carbidopa-levodopa (SINEMET) 25-100 mg per tablet Take 2 tablets by mouth three times a day. - nitroglycerin sublingual (NITROQUICK) 0.4 mg SL tablet Dissolve 1 tablet under the tongue every 5 minutes as needed for chest pain. - metoprolol tartrate, short acting, (LOPRESSOR) 25 mg tablet Take 0.5 tablets by mouth two times a day. - losartan (COZAAR) 50 mg tablet Take 1 tablet by mouth once daily. - spironolactone (ALDACTONE) 25 mg tablet Take 1 tablet by mouth once daily. Dr. Escobar - atorvastatin (LIPITOR) 80 mg tablet Take 1 tablet by mouth once daily. Takes 1/2 tab Mon, Wed AND Andrea. 1 tab rest of days - warfarin (COUMADIN) 5 mg tablet Take 5 mg every Thu, Thu, Thu; 2.5 mg all other days or as directed by [facility] - aspirin(ECOTRIN LOW STRENGTH 81 MG TAB) Take one(1) tablet daily. Meds Comments as of 07/10/2023: Appointment needed for any medication refill. 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 [Z79.01]07/29/2018 Obesity, Class I, BMI 30-34.9 [E66.9] 08/20/2018 Ischemic cardiomyopathy [I25.5] 09/02/2019 Presence of implantable cardioverter-defibrilla* 09/02/2019 Abnormality of gait [R26.9] 01/02/2020 Nocturia [R35.1] 07/31/2023 Parkinsonism (HCC) [G20.C] 07/31/2023 Encounter Status:Closed by HAYLEE ROCK on 10/30/23 [facility] w/INRon INR Coag (PPP) [Relative time] 2.7 {INR} Normal [facility] Comment on above: Performed By: #### L [id number] #### [facility] [address] [place], [address] PT Coag (PPP) [Time] 28.1 s High 11.7-14.9 [facility] Comment on above: Performed By: #### L [id number] #### [facility] [place], [address] CNOVon 10-23-2023 CNOV Office Visit (INTMWS ) -------- OSMAN JONES ([id number]) 1945 M Date Time Provider Department 10/23/23 10:20 AM JORDY SAUCEDO INTMWS During your visit today, we recorded the following information about you: Pulse Blood pressure Weight Height 58/minute 128/72 95.3 kg 1.803 m Jordy Saucedo MD 10/23/2023 12:18 PM Signed This note was created using Gild. Subjective Osman Jones is a 77 year old male was here with daughter. He continued to have nocturia, frequency, and urgency. Oxybutynin did not help his symptoms. His hypertension was controlled. He saw cardiology and no medication changes were recommended. He saw neurology and was started on medication for Parkinsonism. [facility] and no medication changes were recommended. Carotid US was done and was negative. Review of Systems Constitutional: Negative for fatigue and unexpected weight change. Respiratory: Negative for shortness of breath. Cardiovascular: Positive for leg swelling. Negative for chest pain and palpitations. Gastrointestinal: Negative for abdominal pain and constipation. Genitourinary: Positive for decreased urine volume, frequency and urgency. Negative for difficulty urinating and dysuria. Musculoskeletal: Positive for gait problem. 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 carbidopa-levodopa (SINEMET) 25-100 mg per tablet Take 2 tablets by mouth three times a day. nitroglycerin sublingual (NITROQUICK) 0.4 mg SL tablet Dissolve 1 tablet under the tongue every 5 minutes as needed for chest pain. oxybutynin ER (DITROPAN XL) 10 mg 24 hr tablet Take 1 tablet by mouth every evening. metoprolol tartrate, short acting, (LOPRESSOR) 25 mg tablet Take 0.5 tablets by mouth two times a day. losartan (COZAAR) 50 mg tablet Take 1 tablet by mouth once daily. spironolactone (ALDACTONE) 25 mg tablet Take 1 tablet by mouth once daily. Dr. Escobar atorvastatin (LIPITOR) 80 mg tablet Take 1 tablet by mouth once daily. Takes 1/2 tab Thu, Thu AND Thursday. 1 tab rest of days warfarin (COUMADIN) 5 mg tablet Take 5 mg every Thu, Thu, Thu; 2.5 mg all other days or as directed by [facility] aspirin(ECOTRIN LOW STRENGTH 81 MG TAB) Take one(1) tablet daily. No current facility-administered medications for this visit. Objective BP 128/72 (BP Site: Right Arm, BP Position: Sitting) Pulse (!) 58 Ht 180.3 cm (5' 11) Wt 95.3 kg (210 lb 1.6 oz) SpO2 97% BMI 29.30 kg/m? Physical Exam Constitutional: General: He is not in acute distress. Comments: On wheelchair. HENT: Head: Normocephalic. Cardiovascular: Rate and Rhythm: Normal rate and regular rhythm. Heart sounds: No murmur heard. No gallop. Pulmonary: Breath sounds: Normal breath sounds. Neurological: General: No focal deficit present. Psychiatric: Attention and Perception: Attention normal. Mood and Affect: Affect is flat. Speech: Speech is delayed. Comments: Stuttering speech 10/23/2023 UROL [facility]OST[facility] MEN OVER 40 INCOMPLETE EMPTYING 0-NOT AT ALL FREQUENCY 3-ABOUT HALF THE TIME INTERMITTENCY 0-NOT AT ALL URGE TO URINATE 4-MORE THAN HALF THE TIME WEAK STREAM 3-ABOUT HALF THE TIME STRAINING 0-NOT AT ALL URINATING AT NIGHT 4-(4) TIMES Total 17 SYMPTOM SCORE 8-19 MODERATE BOTHER SCORE DUE TO URINARY SYMPTOMS 3- MIXED Assessment and Plan 1. Essential hypertension - ICD9: 401.9, ICD10: I10 (primary diagnosis) - Controlled - COMPLETE BLOOD COUNT 2. Impaired fasting glucose - ICD9: 790.21, ICD10: R73.01 - Stable. 3. Atherosclerosis of [place] coronary artery of [place] heart without angina pectoris - ICD9: 414.01, ICD10: I25.10 - Stable. 4. Lower urinary tract symptoms (LUTS) - ICD9: 788.99, ICD10: R39.9 Shared medical decision making was done. - TAMSULOSIN 0.4 MG CAPSULE. Discussed medication dosage, usage, goals of therapy, and side effects. - Discontinue OXYBUTYNIN CHLORIDE. 5. Nocturia - ICD9: 788.43, ICD10: R35.1 See above. - TAMSULOSIN 0.4 MG CAPSULE 6. PURE HYPERCHOLESTEROL (more content not included)... Normal [facility] CNPNon 10-01-2023 [facility] Telephone (INTInfoRemateWS) -------- OSMAN JONES ([id number]) 1945 M Date Time Provider Department 10/01/23 JORDY SAUCEDO INTWS During your visit today, we recorded the following information about you: Shona Goins LPN 10/01/2023 2:31 PM Signed Last INR: 2.7 10/01/2023 per [facility] outreach lab Current dose of coumadin is: Coumadin dose. 5 mg Thu, Thu, Thursday and 2.5 mg Sun, Thu, Thu, Thursday. Last date of dose change: 09/17/23. Previous INR (date and result): 09/17/23 was 2.3 Additional Clinical Information or narrative: INR goal is 2-3 Need to let [facility] outreach lab know when the next INR is due. Need to call them at [phone] with this info. Pt findings are negative. Need to call spouse back 10/02/23 with instructions at [phone]. Belinda Garcia LPN 10/02/2023 8:25 AM Signed Jordy Saucedo MD Curren, Janice, LPN; [facility]12 hours ago (7:34 PM) Continue Coumadin dose. INR in 4 weeks. Phoned patient and went over coumadin instructions from Dr Saucedo 5 mg , , Thursday and 2.5 mg other days and recheck INR in 4 weeks with understanding. Tracker updated Shona Goins LPN 10/02/2023 8:39 AM Signed [facility] outreach notified for next INR in 4 week.s Allergies As of Date: 10/01/2023 Noted Allergy Reaction LISINOPRIL 01/05/2019 3 - Cough Date Reviewed: 09/25/2023 Reviewed by: Rashida Islas MA - Fully Assessed Reason for Visit: Anticoagulation [8] Order(s):PROTHROMBIN TIME [SQPT] Order #: [id number] Prescriptions as of 10/02/2023 - cholecalciferol, vitamin D3, (VITAMIN D3 ORAL) Take by mouth. - carbidopa-levodopa (SINEMET) 25-100 mg per tablet Take 2 tablets by mouth three times a day. - nitroglycerin sublingual (NITROQUICK) 0.4 mg SL tablet Dissolve 1 tablet under the tongue every 5 minutes as needed for chest pain. - oxybutynin ER (DITROPAN XL) 10 mg 24 hr tablet Take 1 tablet by mouth every evening. - metoprolol tartrate, short acting, (LOPRESSOR) 25 mg tablet Take 0.5 tablets by mouth two times a day. - losartan (COZAAR) 50 mg tablet Take 1 tablet by mouth once daily. - spironolactone (ALDACTONE) 25 mg tablet Take 1 tablet by mouth once daily. Dr. Escobar - atorvastatin (LIPITOR) 80 mg tablet Take 1 tablet by mouth once daily. Takes 1/2 tab Thu, Thu AND Thursday. 1 tab rest of days - warfarin (COUMADIN) 5 mg tablet Take 5 mg every Thu, Thu, Thu; 2.5 mg all other days or as directed by [facility] - aspirin(ECOTRIN LOW STRENGTH 81 MG TAB) Take one(1) tablet daily. Meds Comments as of 07/10/2023: Appointment needed for any medication refill. 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 [Z79.01]07/29/2018 Obesity, Class I, BMI 30-34.9 [E66.9] 08/20/2018 Ischemic cardiomyopathy [I25.5] 09/02/2019 Presence of implantable cardioverter-defibrilla* 09/02/2019 Abnormality of gait [R26.9] 01/02/2020 Nocturia [R35.1] 07/31/2023 Parkinsonism (HCC) [G20.C] 07/31/2023 Encounter Status:Closed by BELINDA GARCIA on 10/02/23 Normal [facility] PT panel Coag (PPP)on 2023 INR Coag (Bld) [Relative time] 2.7 {INR} [facility] ACETYLCHOLINE REC BINDING AB Ordered By: Tamela Crocker on 09-28-2023 Acetylcholine receptor binding Ab (S) [Moles/Vol] 0.16 nmol/L [facility] - 0.21 nmol/L [facility] Acetylcholine, Binding, Qual Negative Negative [facility] Comment on above: Anti-acetylcholine r eceptor binding antibody test is used as an aid in diagnosis of myasthenia gravis. A negative result cannot exclude myasthenia gravis. Clinical correlation is required. Interpretation and review of laboratory results Normal [facility] ACETYLCHOLINE REC BLOCKING A Bon 09-28-2023 Acetylcholine Blocking, Qual Negative Negative [facility] Comment on above: Anti-acetylcholine r eceptor blocking antibody test is used as an aid in diagnosis of myasthenia gravis. A negative result cannot exclude myasthenia gravis. Clinical correlation is required. Acetylcholine receptor blocking Ab/Acetylcholine Ab.total (S) [Molar fraction] [facility] Interpretation and review of laboratory results Normal [facility] Cobalamin (Vitamin B12) [Mas s/Vol]on 09-26-2023 Interpretation and review of laboratory results Normal [facility] VITAMIN B12on 09-26-2023 Cobalamin (Vitamin B12) [Mass/Vol] 708 pg/mL 232 - 1245 pg/mL [facility] PT panel Coag (PPP)on 2023 INR Coag (Bld) [Relative time] 2.3 {INR} [facility] PT panel Coag (PPP)on 2023 INR Coag (Bld) [Relative time] 4.13 (ext) 2.0 - 3.0 [facility] Interpretation and review of laboratory results Abnormal [facility] PT panel Coag (PPP)on 2023 INR Coag (Bld) [Relative time] 3.0 {INR} [facility] Basic metabolic 2000 panelon 07-31-2023 Anion gap [Moles/Vol] 12 mmol/L 9 - 18 mmol/L [facility] Calcium [Mass/Vol] 9.4 mg/dL 8.5 - 10. 2 mg/dL [facility] Chloride [Moles/Vol] 104 mmol/L 97 - 10 5 mmol/L [facility] CO2 [Moles/Vol] 26 mmol/L 22 - 30 mmol/L [facility] Creatinine [Mass/Vol] 0.98 mg/dL 0.73 - 1.22 mg/dL [facility] GFR/1.73 sq M.predicted among non-blacks MDRD (S/P/Bld) [Vol rate/Area] 79 mL/min/{1.73_m2} - PINF [facility] Comment on above: Estimated Glomerular Filtration Rate (eGFR) is calculated using the 2020 CKD-EPI creatinine equation. This equation utilizes serum creatinine, sex, and age as parameters. The creatinine assay has traceable calibration to isotope dilution-mass spectrometry. Refer to KDIGO guidelines for clinical interpretation. In patients with unstable renal function, e.g. those with acute kidney injury, the eGFR may not accurately reflect actual GFR. Glucose [Mass/Vol] 101 mg/dL High 74 - 99 mg/dL [facility] Comment on above: The [place] Di[employer] Association (ADA) provides guidance for cutoff values for fasting glucose and random glucose. The ADA defines fasting as no caloric intake for at least 8 hours. Fasting plasma glucose results between 100 to 125 mg/dL indicate increased risk for diabetes (prediabetes). Fasting plasma glucose results greater than or equal to 126 mg/dL meet the criteria for diagnosis of diabetes. In the absence of unequivocal hyperglycemia, results should be confirmed by repeat testing. In a patient with classic symptoms of hyperglycemia or hyperglycemic crisis, random plasma glucose results greater than or equal to 200 mg/dL meet the criteria for diagnosis of diabetes. Reference: Standards of Medical Care in Diabetes 2016, [place] [employer]. Diabetes Care. 2016.39(Suppl 1). Interpretation and review of laboratory results Abnormal [facility] Potassium [Moles/Vol] 4.4 mmol/L 3.7 - 5.1 mmol/L [facility] Sodium [Moles/Vol] 142 mmol/L 136 - 144 mmol/L [facility] Urea nitrogen [Mass/Vol] 11 mg/dL 9 - 24 mg/dL [facility] CBC panel Auto (Bld)on 07-30 Erythrocyte distribution width (RBC) [Ratio] 13.2 % 11.5 - 15.0 % [facility] Hematocrit (Bld) [Volume fraction] 49.8 % 39.0 - 51.0 % [facility] Hemoglobin (Bld) [Mass/Vol] 16.4 g/dL 13.0 - 17.0 g/dL [facility] Interpretation and review of laboratory results Abnormal [facility] MCH (RBC) [Entitic mass] 30.8 pg 26.0 - 34.0 pg [facility] MCHC (RBC) [Mass/Vol] 32.9 g/dL 30.5 - 36.0 g/dL [facility] MCV (RBC) [Entitic vol] 93.4 fL 80.0 - 100.0 fL [facility] Nucleated RBC (Bld) [#/Vol] NINF [facility] Platelet mean volume (Bld) [Entitic vol] 13.5 fL High 9.0 - 12.7 fL [facility] Platelets (Bld) [#/Vol] 192 10*3/uL [facility] RBC (Bld) [#/Vol] 5.33 10*6/uL 4.20 - 6.0 0 m/uL [facility] WBC (Bld) [#/Vol] 7.82 10*3/uL [facility] Urinalysis complete panel (U )on 07-31-2023 Bacteria LM.HPF (Urine sed) [#/Area] Negative Negative /HPF [facility] Bilirubin Ql (U) Negative Negative [facility] Clarity (Unsp spec) Clear Clear [facility] Color (U) Yellow Yellow [facility] Epithelial cells LM.HPF (Urine sed) [#/Area] None Seen /HPF [facility] Glucose Test strip (U) [Mass/Vol] Negative Negative [facility] Hemoglobin Ql (U) Negative Negative [facility] Hyaline casts (Urine sed) [#/Area] 0 /[LPF] 0 /LPF [facility] Interpretation and review of laboratory results Abnormal [facility] Ketones Ql (U) Negative Negative [facility] Leukocyte esterase Test strip Ql (U) Negative Negative [facility] Nitrite Ql (U) Negative Negative [facility] pH (U) 7.0 [pH] NINF - 8.5 [facility] Protein (U) [Mass/Vol] Trace Abnormal Negative [facility] RBC LM.HPF (Urine sed) [#/Area] 0-2 /HPF 0-2 /HPF [facility] Specific gravity (U) [Rel density] 1.019 1.005 - 1.030 [facility] Urobilinogen Ql (U) 1.0 EU/dL 0.2-1.0 EU/dL [facility] WBC LM.HPF (Urine sed) [#/Area] 0-5 /HPF 0-5 /HPF [facility] This test was lisao ped and its performance characteristics determined by [facility]'s [employer] [facility] Pathology and Laboratory Medicine [place] (-PLMI). It has not been cleared or approved by the FDA. -[facility] is regulated under CLIA as qualified to perform high-complexity testing. This test is used for clinical purposes. It should not be regarded as investigational or for research. [facility] COVID-19 virus antigen assay Ordered By: Ashwin Long on 02-28-2023 SARS-CoV-2 (COVID-19) Ag IA.rapid Ql (Resp) [facility] INR in Blood by Coagulation assayOrdered By: Ashwin Long on 02-28-2023 INR Coag (Bld) [Relative time] 2.9 {INR} [facility] Laboratory - CoagulationOrde red By: Ashwin Long on 02-28-2023 PT Coag (PPP) [Time] 30.4 s 11.7-14.9 [facility] Absolute lymphocyte countOrd ered By: Ashwin Long on 02-26-2023 Lymphocytes Auto (Unsp spec) [#/Vol] 1.50 10*3/uL 0.83-4.51 [facility] Basophil percentageOrdered B y: Ashwin Long on 02-26-2023 Basophils/100 WBC (Bld) 0.9 % 0-1 [facility] Chloride [Moles/Vol] 111 mmol/L 98-107 [facility] Eosinophils/100 WBC (Bld) 1.6 % 0-5 [facility] Glucose [Mass/Vol] 106 mg/dL 74-106 [facility] Comment on above: Fasting Glucose resu lt from 100 to 125 mg/dL suggests IMPAIRED HOMEOSTASIS per A.D.A. criteria. Neutrophils (Bld) [#/Vol] 7.4 10*3/uL 2.0-7.7 [facility] Neutrophils/100 WBC (Bld) 72.0 % 47-70 [facility] Potassium [Moles/Vol] 3.9 mmol/L 3.5-5.1 [facility] Sodium [Moles/Vol] 141 mmol/L 136-145 [facility] WBC (Bld) [#/Vol] 10.3 10*3/uL 4.4-11.0 [facility] Blood erythrocytes count (nu mber/volume)Ordered By: Ashwin Long on 02-26-2023 RBC (Bld) [#/Vol] 5.12 10*6/uL 4.6-6.2 [facility] Blood hemoglobin measurement (mass/volume)Ordered By: Ashwin Long on 02-26-2023 Hemoglobin (Bld) [Mass/Vol] 15.2 g/dL 13.0-16.5 [facility] Blood lymphocytes/100 leukoc ytesOrdered By: Ashwin Long on 02-26-2023 Lymphocytes/100 WBC (Bld) 14.5 % 19-41 [facility] Blood monocytes/100 leukocyt esOrdered By: Ashwin Long on 02-26-2023 Monocytes/100 WBC (Bld) 10.5 % 0-10 [facility] Blood platelet mean volumeOr dered By: Ashwin Long on 02-26-2023 Platelet mean volume (Bld) [Entitic vol] 11.4 fL 6.2-12.0 [facility] Determination of erythrocyte mean corpuscular volume (MCV)Ordered By: Ashwin Long on 02-26-2023 MCV (RBC) [Entitic vol] 91.4 fL 80-94 [facility] Hematocrit Auto (Bld) [Volum e fraction]Ordered By: Ashwin Long on 02-26-2023 Hematocrit (Bld) [Volume fraction] 46.8 % 40-54 [facility] Laboratory - Chemistry and C hemistry - challengeOrdered By: Ashwin Long on 02-26-2023 CO2 [Moles/Vol] 24.0 mmol/L 21.0-32.0 [facility] Urea nitrogen/Creatinine [Mass ratio] 19.8 mg/mg 10-20 [facility] Laboratory - Hematology and Cell countsOrdered By: Ashwin Long on 02-26-2023 Erythrocyte distribution width (RBC) [Entitic vol] 43.1 fL 35.1-43.9 [facility] Erythrocyte distribution width (RBC) [Ratio] 13.0 % 11.6-14.6 [facility] Immature granulocytes/100 WBC (Bld) 0.500 % 0.0-0.9 [facility] Comment on above: IG% - Immature Granu locytes (promyelocytes, myelocytes and metamyelocytes) > 1% indicates that a LEFT SHIFT is Present. MCH (RBC) [Entitic mass] 29.7 pg 27.0-32.0 [facility] Nucleated RBC/100 WBC (Bld) [Ratio] 0 % 0-5 [facility] MCHC Auto (RBC) [Mass/Vol]Or dered By: Ashwin Long on 02-26-2023 MCHC (RBC) [Mass/Vol] 32.5 g/dL 32-36 [facility] No Panel InformationOrdered By: Ashwin Long on 02-26-2023 Estimated Creatinine Clearance Calc 83.83 ml/min [facility] Estimated GFR (MDRD) Amer 119 mL/min >60 [facility] Comment on above: GFR Calc Estimated GFR (MDRD) Non-Af Amer 99 mL/min >60 [facility] Comment on above: Non- GFR Calc Platelets bldOrdered By: Benedict Long on 02-26-2023 Platelets (Bld) [#/Vol] 199 10*3/uL 150-450 [facility] Serum or plasma calcium mesfin urement (mass/volume)Ordered By: Ashwin Long on 02-26-2023 Calcium [Mass/Vol] 8.4 mg/dL 8.5-10.1 [facility] Serum or plasma creatinine m easurement (mass/volume)Ordered By: Ashwin Long on 02-26-2023 Creatinine [Mass/Vol] 0.81 mg/dL 0.70-1.30 [facility] Comment on above: The validity of the calculated GFR & GFRAA in patients over 70 years has not been determined. Clinical correlation is essential. Serum or plasma urea nitroge n measurement (mass/volume)Ordered By: Ashwin Long on 02-26-2023 Urea nitrogen [Mass/Vol] 16 mg/dL 7-18 [facility] Thin prep Papanicolaou smear with manual screeningOrdered By: Ashwin Long on 02-26-2023 Thin prep Papanicolaou smear with manual screening 6 5-15 [facility] Glucose Glucometer (BldC) [M ass/Vol]Ordered By: Ashwin Long on 02-25-2023 Glucose [Mass/Vol] 173 mg/dL 74-106 [facility] Comment on above: MANAGEMENT OF PATIEN T CARE PER NURSING PROTOCOL Blood manual differential co mment interpretation (narrative result)Ordered By: Ashwin Long on 02-24-2023 Manual differential comment Mark (Bld) [Interp] SCANNED [facility] Basophil percentageOrdered B y: Noé Cruz on 02-21-2023 Basophil percentage 0-5 SEEN /hpf 0-5 [facility] Bilirubin Test strip Ql (U)O rdered By: Noé Cruz on 02-21-2023 Bilirubin Ql (U) Negative Negative [facility] Ketones Test strip Ql (U)Ord ered By: Noé Cruz on 02-21-2023 Ketones Ql (U) Negative Negative [facility] Mucus LM Ql (Urine sed)Order ed By: Noé Cruz on 02-21-2023 Mucus Ql (Urine sed) 0 SEEN /hpf [facility] Nitrite Test strip Ql (U)Ord ered By: Noé Cruz on 02-21-2023 Nitrite Ql (U) Negative Negative [facility] Protein Test strip Ql (U)Ord ered By: Noé Cruz on 02-21-2023 Protein Ql (U) 15 mg/dl Negative [facility] Squamous epithelial cells de tection in urine sediment by light microscopyOrdered By: Noé Cruz on 02-21-2023 Epithelial cells.squamous LM Ql (Urine sed) 0 SEEN /hpf 0-5 [facility] Urine blood detectionOrdered By: Noé Cruz on 02-21-2023 RBC Ql (U) 25 /ul Negative [facility] RBC Ql (U) 0 SEEN /hpf 0-5 [facility] Urine clarityOrdered By: Jerica Cruz on 02-21-2023 Clarity (U) Sl. Cloudy Clear [facility] Urine color determinationOrd ered By: Noé Cruz on 02-21-2023 Color (U) Yellow Yellow [facility] Urine glucose detectionOrder ed By: Noé Cruz on 02-21-2023 Glucose Ql (U) Normal mg/dl Normal [facility] Urine leukocyte esterase det ection by dipstickOrdered By: Noé Cruz on 02-21-2023 Leukocyte esterase Test strip Ql (U) 25 /ul Negative [facility] Urine pHOrdered By: Hugo Cruz on 02-21-2023 pH (U) 6.0 [pH] 5.0 - 8.0 [facility] Urine sediment bacteria coun t by microscopy (number/high power field)Ordered By: Noé Cruz on 02-21-2023 Bacteria LM.HPF (Urine sed) [#/Area] RARE /hpf None Seen [facility] Urine specific gravity measu rementOrdered By: Noé Cruz on 02-21-2023 Specific gravity (U) [Rel density] 1.020 1.002-1.030 [facility] Urobilinogen Auto test strip Ql (U)Ordered By: Noé rCuz on 02-21-2023 Urobilinogen Ql (U) 4 mg/dl Normal [facility] Absolute lymphocyte countOrd ered By: Caesar Andrew on 02-20-2023 Lymphocytes Auto (Unsp spec) [#/Vol] 0.89 10*3/uL 0.83-4.51 [facility] Basophil percentageOrdered B y: Caesar Andrew on 02-20-2023 Basophils/100 WBC (Bld) 0.4 % 0-1 [facility] Chloride [Moles/Vol] 110 mmol/L 98-107 [facility] Eosinophils/100 WBC (Bld) 0.6 % 0-5 [facility] Glucose [Mass/Vol] 119 mg/dL 74-106 [facility] Comment on above: Fasting Glucose resu lt from 100 to 125 mg/dL suggests IMPAIRED HOMEOSTASIS per A.D.A. criteria. Neutrophils (Bld) [#/Vol] 7.2 10*3/uL 2.0-7.7 [facility] Neutrophils/100 WBC (Bld) 80.2 % 47-70 [facility] Potassium [Moles/Vol] 4.1 mmol/L 3.5-5.1 [facility] Sodium [Moles/Vol] 142 mmol/L 136-145 [facility] WBC (Bld) [#/Vol] 8.9 10*3/uL 4.4-11.0 [facility] Blood erythrocytes count (nu mber/volume)Ordered By: Caesar Andrew on 02-20-2023 RBC (Bld) [#/Vol] 5.32 10*6/uL 4.6-6.2 [facility] Blood hemoglobin measurement (mass/volume)Ordered By: Caesar Andrew on 02-20-2023 Hemoglobin (Bld) [Mass/Vol] 15.7 g/dL 13.0-16.5 [facility] Blood lymphocytes/100 leukoc ytesOrdered By: Caesar Andrew on 02-20-2023 Lymphocytes/100 WBC (Bld) 10.0 % 19-41 [facility] Blood monocytes/100 leukocyt esOrdered By: Caesar Andrew on 02-20-2023 Monocytes/100 WBC (Bld) 8.4 % 0-10 [facility] Blood platelet mean volumeOr dered By: Caesar Andrew on 02-20-2023 Platelet mean volume (Bld) [Entitic vol] 11.3 fL 6.2-12.0 [facility] Determination of erythrocyte mean corpuscular volume (MCV)Ordered By: Caesar Andrew on 02-20-2023 MCV (RBC) [Entitic vol] 91.0 fL 80-94 [facility] Hematocrit Auto (Bld) [Volum e fraction]Ordered By: Caesar Andrew on 02-20-2023 Hematocrit (Bld) [Volume fraction] 48.4 % 40-54 [facility] Laboratory - Chemistry and C hemistry - challengeOrdered By: Caesar Andrew on 02-20-2023 CO2 [Moles/Vol] 28.0 mmol/L 21.0-32.0 [facility] Urea nitrogen/Creatinine [Mass ratio] 20.8 mg/mg 10-20 [facility] Laboratory - Hematology and Cell countsOrdered By: Caesar Andrew on 02-20-2023 Erythrocyte distribution width (RBC) [Entitic vol] 44.0 fL 35.1-43.9 [facility] Erythrocyte distribution width (RBC) [Ratio] 13.2 % 11.6-14.6 [facility] Immature granulocytes/100 WBC (Bld) 0.400 % 0.0-0.9 [facility] Comment on above: IG% - Immature Granu locytes (promyelocytes, myelocytes and metamyelocytes) > 1% indicates that a LEFT SHIFT is Present. MCH (RBC) [Entitic mass] 29.5 pg 27.0-32.0 [facility] Nucleated RBC/100 WBC (Bld) [Ratio] 0 % 0-5 [facility] MCHC Auto (RBC) [Mass/Vol]Or dered By: Caesar Andrew on 02-20-2023 MCHC (RBC) [Mass/Vol] 32.4 g/dL 32-36 [facility] No Panel InformationOrdered By: Caesar Andrew on 02-20-2023 Estimated Creatinine Clearance Calc 67.23 ml/min [facility] Estimated GFR (MDRD) Amer 92 mL/min >60 [facility] Comment on above: GFR Calc Estimated GFR (MDRD) Non-Af Amer 76 mL/min >60 [facility] Comment on above: Non- GFR Calc Platelets bldOrdered By: Jerica Andrew on 02-20-2023 Platelets (Bld) [#/Vol] 162 10*3/uL 150-450 [facility] Serum or plasma calcium mesfin urement (mass/volume)Ordered By: Caesar Andrew on 02-20-2023 Calcium [Mass/Vol] 8.9 mg/dL 8.5-10.1 [facility] Serum or plasma creatinine m easurement (mass/volume)Ordered By: Caesar Andrew on 02-20-2023 Creatinine [Mass/Vol] 1.01 mg/dL 0.70-1.30 [facility] Comment on above: The validity of the calculated GFR & GFRAA in patients over 70 years has not been determined. Clinical correlation is essential. Serum or plasma urea nitroge n measurement (mass/volume)Ordered By: Caesar Andrew on 02-20-2023 Urea nitrogen [Mass/Vol] 21 mg/dL 7-18 [facility] Thin prep Papanicolaou smear with manual screeningOrdered By: Caesar Andrew on 02-20-2023 Thin prep Papanicolaou smear with manual screening 07-21 [facility] CBC panel Auto (Bld)on 02-13 Erythrocyte distribution width (RBC) [Ratio] 13.1 % 11.5 - 15.0 % [facility] Hematocrit (Bld) [Volume fraction] 51.9 % High 39.0 - 51.0 % [facility] Hemoglobin (Bld) [Mass/Vol] 16.7 g/dL 13.0 - 17.0 g/dL [facility] MCH (RBC) [Entitic mass] 30.5 pg 26.0 - 34.0 pg [facility] MCHC (RBC) [Mass/Vol] 32.2 g/dL 30.5 - 36.0 g/dL [facility] MCV (RBC) [Entitic vol] 94.9 fL 80.0 - 100.0 fL [facility] Nucleated RBC (Bld) [#/Vol] <0.01 k/uL [facility] Platelet mean volume (Bld) [Entitic vol] 14.4 fL High 9.0 - 12.7 fL [facility] Platelets (Bld) [#/Vol] 183 10*3/uL 150 - 400 k/uL [facility] RBC (Bld) [#/Vol] 5.47 10*6/uL 4.20 - 6.0 0 m/uL [facility] WBC (Bld) [#/Vol] 7.72 10*3/uL 3.70 - 11.00 k/uL [facility] CK CREATINE KINASEon 023 CK [Catalytic activity/Vol] 69 U/L 51 - 298 U/L [facility] Comprehensive metabolic 2000 panelon 02-13-2023 Albumin [Mass/Vol] 3.9 g/dL 3.9 - 4.9 g/dL [facility] ALP [Catalytic activity/Vol] 95 U/L 38 - 113 U/L [facility] ALT [Catalytic activity/Vol] 23 U/L 10 - 54 U/L [facility] Anion gap [Moles/Vol] 10 mmol/L 9 - 18 mmol/L [facility] AST [Catalytic activity/Vol] 26 U/L 14 - 40 U/L [facility] Bilirubin [Mass/Vol] 1.1 mg/dL 0.2 - 1 .3 mg/dL [facility] Calcium [Mass/Vol] 9.6 mg/dL 8.5 - 10. 2 mg/dL [facility] Chloride [Moles/Vol] 106 mmol/L High 97 - 10 5 mmol/L [facility] CO2 [Moles/Vol] 26 mmol/L 22 - 30 mmol/L [facility] Creatinine [Mass/Vol] 1.06 mg/dL 0.73 - 1.22 mg/dL [facility] Estimated Glomerular Filtration Rate 72 mL/min/1.73m >=60 mL/min/1.73 m [facility] Glucose [Mass/Vol] 106 mg/dL High 74 - 99 mg/dL [facility] Potassium [Moles/Vol] 5.0 mmol/L 3.7 - 5.1 mmol/L [facility] Protein [Mass/Vol] 7.1 g/dL 6.3 - 8.0 g/dL [facility] Sodium [Moles/Vol] 142 mmol/L 136 - 144 mmol/L [facility] Urea nitrogen [Mass/Vol] 13 mg/dL 9 - 24 mg/dL [facility] HbA1c (Bld)on 02-13-2023 Average glucose Estimated from glycated hemoglobin (Bld) [Mass/Vol] 108 mg/dL [facility] HbA1c (Bld) [Mass fraction] 5.4 % 4.3 - 5.6 % [facility] Lipid 1996 panelon Cholesterol [Mass/Vol] 144 mg/dL <200 mg/dL [facility] Cholesterol in HDL [Mass/Vol] 43 mg/dL >39 mg/dL [facility] Cholesterol in LDL [Mass/Vol] 84 mg/dL <100 mg/dL [facility] Cholesterol in LDL/Cholesterol in HDL [Mass ratio] 1.95 {ratio} <2.54 [facility] Cholesterol in VLDL [Mass/Vol] 17 mg/dL <30 mg/dL [facility] Cholesterol non HDL [Mass/Vol] 101 mg/dL <130 mg/dL [facility] Cholesterol.total/Chol esterol in HDL [Mass ratio] 3.35 {ratio} <5.10 [facility] Fasting Time 14 hrs [facility] Triglyceride [Mass/Vol] 84 mg/dL <150 mg/dL [facility] PT panel Coag (PPP)on 2022 INR Coag (PPP) [Relative time] 3.1 {INR} High 0.9 - 1.3 [facility] PT Coag (PPP) [Time] 30.0 s High 9.7 - 1 3.0 sec [facility] INR FINGERSTICK B/Oon 2021 INR Coag (Bld) [Relative time] 2.3 [facility] Absolute lymphocyte counton 01-23-2022 Lymphocytes Auto (Unsp spec) [#/Vol] 1.23 10*3/uL 0.83-4.51 [facility] Work Phone: Basophil percentageon 2021 Basophils/100 WBC (Bld) 0.5 % 0-1 [facility] Work Phone: Chloride [Moles/Vol] 107 mmol/L 98-107 [facility] Work Phone: Eosinophils/100 WBC (Bld) 0.7 % 0-5 [facility] Work Phone: Glucose [Mass/Vol] 100 mg/dL 74-106 [facility] Work Phone: Comment on above: Fasting Glucose resu lt from 100 to 125 mg/dL suggests IMPAIRED HOMEOSTASIS per A.D.A. criteria. Neutrophils (Bld) [#/Vol] 2.2 10*3/uL 2.0-7.7 [facility] Work Phone: Neutrophils/100 WBC (Bld) 54.2 % 47-70 [facility] Work Phone: Potassium [Moles/Vol] 3.4 mmol/L 3.5-5.1 [facility] Work Phone: Sodium [Moles/Vol] 139 mmol/L 136-145 [facility] Work Phone: WBC (Bld) [#/Vol] 4.1 10*3/uL 4.4-11.0 [facility] Work Phone: Blood erythrocytes count (nu mber/volume)on 01-23-2022 RBC (Bld) [#/Vol] 4.91 10*6/uL 4.6-6.2 [facility] Work Phone: Blood hemoglobin measurement (mass/volume)on 01-23-2022 Hemoglobin (Bld) [Mass/Vol] 15.0 g/dL 13.0-16.5 [facility] Work Phone: Blood lymphocytes/100 leukoc yteson 01-23-2022 Lymphocytes/100 WBC (Bld) 29.7 % 19-41 [facility] Work Phone: Blood monocytes/100 leukocyt eson 01-23-2022 Monocytes/100 WBC (Bld) 14.7 % 0-10 [facility] Work Phone: Blood platelet mean volumeon 01-23-2022 Platelet mean volume (Bld) [Entitic vol] 11.5 fL 6.2-12.0 [facility] Work Phone: Determination of erythrocyte mean corpuscular volume (MCV)on 01-23-2022 MCV (RBC) [Entitic vol] 91.2 fL 80-94 [facility] Work Phone: Hematocrit Auto (Bld) [Volum e fraction]on 01-23-2022 Hematocrit (Bld) [Volume fraction] 44.8 % 40-54 [facility] Work Phone: INR in Blood by Coagulation assayon 01-23-2022 INR Coag (Bld) [Relative time] 2.5 {INR} [facility] Work Phone: Laboratory - Chemistry and C hemistry - challengeon 01-23-2022 CO2 [Moles/Vol] 26.0 mmol/L 21.0-32.0 [facility] Work Phone: Urea nitrogen/Creatinine [Mass ratio] 19.7 mg/mg 10-20 [facility] Work Phone: Laboratory - Coagulationon 03-25-2021 PT Coag (PPP) [Time] 26.3 s 11.7-14.9 [facility] Work Phone: Laboratory - Hematology and Cell countson 01-23-2022 Erythrocyte distribution width (RBC) [Entitic vol] 45.1 fL 35.1-43.9 [facility] Work Phone: [phone] Erythrocyte distribution width (RBC) [Ratio] 13.3 % 11.6-14.6 [facility] Work Phone: [phone] Immature granulocytes/100 WBC (Bld) 0.200 % 0.0-0.9 [facility] Work Phone: [phone] Comment on above: IG% - Immature Granu locytes (promyelocytes, myelocytes and metamyelocytes) > 1% indicates that a LEFT SHIFT is Present. MCH (RBC) [Entitic mass] 30.5 pg 27.0-32.0 [facility] Work Phone: [phone] Nucleated RBC/100 WBC (Bld) [Ratio] 0 % 0-5 [facility] Work Phone: [phone] MCHC Auto (RBC) [Mass/Vol]on 01-23-2022 MCHC (RBC) [Mass/Vol] 33.5 g/dL 32-36 [facility] Work Phone: No Panel Informationon 01-23 Estimated Creatinine Clearance Calc 80.21 ml/min [facility] Work Phone: [phone] Estimated GFR (MDRD) Amer 110 mL/min >60 [facility] Work Phone: [phone] Comment on above: GFR Calc Estimated GFR (MDRD) Non-Af Amer 91 mL/min >60 [facility] Work Phone: [phone] Comment on above: Non- GFR Calc Platelets bldon 01-23-2022 Platelets (Bld) [#/Vol] 130 10*3/uL 150-450 [facility] Work Phone: [phone] Serum or plasma calcium mesfin urement (mass/volume)on 01-23-2022 Calcium [Mass/Vol] 7.7 mg/dL 8.5-10.1 [facility] Work Phone: [phone] Serum or plasma creatinine m easurement (mass/volume)on 01-23-2022 Creatinine [Mass/Vol] 0.86 mg/dL 0.70-1.30 [facility] Work Phone: Comment on above: The validity of the calculated GFR & GFRAA in patients over 70 years has not been determined. Clinical correlation is essential. Serum or plasma urea nitroge n measurement (mass/volume)on 01-23-2022 Urea nitrogen [Mass/Vol] 17 mg/dL 7-18 [facility] Work Phone: Thin prep Papanicolaou smear with manual screeningon 01-23-2022 Thin prep Papanicolaou smear with manual screening 6 5-15 [facility] Work Phone: Basophil percentageon 2021 Basophil percentage 2.3 mg/dL 2.5-4.9 [facility] Work Phone: Laboratory - Chemistry and C hemistry - challengeon 01-22-2022 Magnesium [Mass/Vol] 2.3 mg/dL 1.6-2.6 [facility] Work Phone: Absolute lymphocyte counton 01-21-2022 Lymphocytes Auto (Unsp spec) [#/Vol] 0.87 10*3/uL 0.83-4.51 [facility] Work Phone: Basophil percentageon 2021 Basophil percentage 0 SEEN /hpf 0-5 [facility] Work Phone: Basophils/100 WBC (Bld) 0.3 % 0-1 [facility] Work Phone: Bilirubin [Mass/Vol] 1.40 mg/dL 0.20-1.00 [facility] Work Phone: Comment on above: For patients on eltr ombopag therapy, use of Dimension [place] TBIL is not recommended. Chloride [Moles/Vol] 106 mmol/L 98-107 [facility] Work Phone: Eosinophils/100 WBC (Bld) 0.1 % 0-5 [facility] Work Phone: Glucose [Mass/Vol] 94 mg/dL 74-106 [facility] Work Phone: Neutrophils (Bld) [#/Vol] 4.9 10*3/uL 2.0-7.7 [facility] Work Phone: Neutrophils/100 WBC (Bld) 67.2 % 47-70 [facility] Work Phone: Potassium [Moles/Vol] 3.9 mmol/L 3.5-5.[address] [facility] Work Phone: Protein [Mass/Vol] 6.9 g/dL 6.4-8.2 [facility] Work Phone: Sodium [Moles/Vol] 141 mmol/L 136-145 [facility] Work Phone: WBC (Bld) [#/Vol] 7.2 10*3/uL 4.4-11.0 [facility] Work Phone: Bilirubin Test strip Ql (U)o n 01-21-2022 Bilirubin Ql (U) Negative Negative [facility] Work Phone: Blood erythrocytes count (nu mber/volume)on 01-21-2022 RBC (Bld) [#/Vol] 5.23 10*6/uL 4.6-6.2 [facility] Work Phone: Blood hemoglobin measurement (mass/volume)on 01-21-2022 Hemoglobin (Bld) [Mass/Vol] 15.9 g/dL 13.0-16.5 [facility] Work Phone: Blood lymphocytes/100 leukoc yteson 01-21-2022 Lymphocytes/100 WBC (Bld) 12.0 % 19-41 [facility] Work Phone: Blood monocytes/100 leukocyt eson 01-21-2022 Monocytes/100 WBC (Bld) 19.8 % 0-10 [facility] Work Phone: Blood platelet mean volumeon 01-21-2022 Platelet mean volume (Bld) [Entitic vol] 11.2 fL 6.2-12.0 [facility] Work Phone: Determination of erythrocyte mean corpuscular volume (MCV)on 01-21-2022 MCV (RBC) [Entitic vol] 92.5 fL 80-94 [facility] Work Phone: Hematocrit Auto (Bld) [Volum e fraction]on 01-21-2022 Hematocrit (Bld) [Volume fraction] 48.4 % 40-54 [facility] Work Phone: INR in Blood by Coagulation assayon 01-21-2022 INR Coag (Bld) [Relative time] 1.8 {INR} [facility] Work Phone: Ketones Test strip Ql (U)on 01-21-2022 Ketones Ql (U) 50 mg/dl Negative [facility] Work Phone: Laboratory - Chemistry and C hemistry - challengeon 01-21-2022 ALP [Catalytic activity/Vol] 87 U/L 45-117 [facility] Work Phone: ALT [Catalytic activity/Vol] 43 U/L 16-61 [facility] Work Phone: CO2 [Moles/Vol] 28.0 mmol/L 21.0-32.0 [facility] Work Phone: Globulin (S) [Mass/Vol] 3.5 g/dL 2.2-4.2 [facility] Work Phone: Lipase [Catalytic activity/Vol] 83 U/L 73-393 [facility] Work Phone: Urea nitrogen/Creatinine [Mass ratio] 15.9 mg/mg 10-20 [facility] Work Phone: Laboratory - Coagulationon 03-23-2021 aPTT Coag (Bld) [Time] 39.9 s 24.1-36.2 [facility] Work Phone: PT Coag (PPP) [Time] 20.1 s 11.7-14.[address] Work Phone: Laboratory - Hematology and Cell countson 01-21-2022 Erythrocyte distribution width (RBC) [Entitic vol] 46.6 fL 35.1-43.9 [facility] Work Phone: [phone] Erythrocyte distribution width (RBC) [Ratio] 13.7 % 11.6-14.6 [facility] Work Phone: [phone] Immature granulocytes/100 WBC (Bld) 0.600 % 0.0-0.9 [facility] Work Phone: [phone] Comment on above: IG% - Immature Granu locytes (promyelocytes, myelocytes and metamyelocytes) > 1% indicates that a LEFT SHIFT is Present. MCH (RBC) [Entitic mass] 30.4 pg 27.0-32.0 [facility] Work Phone: [phone] Nucleated RBC/100 WBC (Bld) [Ratio] 0 % 0-5 [facility] Work Phone: [phone] Laboratory - Microbiology an d Antimicrobial susceptibilityon 01-21-2022 SARS-CoV-2 (COVID-19) RNA MEGAN+probe Ql (Unsp spec) Detected Not Detect [facility] Work Phone: Comment on above: Normal Reference Ran ge: Not DetectedMethod:(RT-PCR) real-time reverse transcriptase PCRLuminex ARMANDO Instrument*The Food and Drug Administration (FDA) has issued an Emergency Use Authorization (EAU) for the ARMANDO SARS-CoV-2 Assay for the rapid detection of the virus that causes COVID-19. This test has been validated, but the FDAs independent review of this validation is pending.*Negative results do not preclude infection and should not be used as the sole basis for treatment or patient management. Optimum specimen types and timing for peak viral levels during infections caused by SARS-CoV-2 have not been determined. Collection of multiple specimens from the same patient may be necessary to detect the virus. The possibility of a false negative result should be considered if the patient has clinical presentation or has had recent exposure. MCHC Auto (RBC) [Mass/Vol]on 01-21-2022 MCHC (RBC) [Mass/Vol] 32.9 g/dL 32-36 [facility] Work Phone: Mucus LM Ql (Urine sed)on Mucus Ql (Urine sed) 0 SEEN /hpf [facility] Work Phone: [phone] Nitrite Test strip Ql (U)on 01-21-2022 Nitrite Ql (U) Negative Negative [facility] Work Phone: [phone] Panel Informationon 01-21 Estimated Creatinine Clearance Calc 64.47 ml/min [facility] Work Phone: [phone] Estimated GFR (MDRD) Amer 86 mL/min >60 [facility] Work Phone: [phone] Comment on above: GFR Calc Estimated GFR (MDRD) Non-Af Amer 71 mL/min >60 [facility] Work Phone: [phone] Comment on above: Non- GFR Calc Troponin I High Sensitivity 12 pg/mL 3.0-78.0 [facility] Work Phone: [phone] Comment on above: Please Note: New [place] t Units and Gender Specific Reference Ranges. For more information see Policy Stat Procedure [place] High Sensitivity Troponin (TNIH) and attachments. Platelets bldon 01-21-2022 Platelets (Bld) [#/Vol] 131 10*3/uL 150-450 [facility] Work Phone: [phone] Protein Test strip Ql (U)on 01-21-2022 Protein Ql (U) 30 mg/dl Negative [facility] Work Phone: [phone] Serum or plasma albumin mesfin urement (mass/volume)on 01-21-2022 Albumin [Mass/Vol] 3.4 g/dL 3.2-5.0 [facility] Work Phone: [phone] Serum or plasma albumin/glob ulin mass ratioon 01-21-2022 Albumin/Globulin [Mass ratio] 1.0 {ratio} 0.9-2.4 [facility] Work Phone: [phone] Serum or plasma calcium mesfin urement (mass/volume)on 01-21-2022 Calcium [Mass/Vol] 8.2 mg/dL 8.5-10.1 [facility] Work Phone: Serum or plasma creatinine m easurement (mass/volume)on 01-21-2022 Creatinine [Mass/Vol] 1.07 mg/dL 0.70-1.30 [facility] Work Phone: Comment on above: The validity of the calculated GFR & GFRAA in patients over 70 years has not been determined. Clinical correlation is essential. Serum or plasma urea nitroge n measurement (mass/volume)on 01-21-2022 Urea nitrogen [Mass/Vol] 17 mg/dL 7-18 [facility] Work Phone: [phone] Squamous epithelial cells de tection in urine sediment by light microscopyon 01-21-2022 Epithelial cells.squamous LM Ql (Urine sed) 0 SEEN /hpf 0-5 [facility] Work Phone: Thin prep Papanicolaou smear with manual screeningon 01-21-2022 Thin prep Papanicolaou smear with manual screening 52 U/L 15-37 [facility] Work Phone: [phone] Thin prep Papanicolaou smear with manual screening 07-21 [facility] Work Phone: Urine blood detectionon 01-07 RBC Ql (U) 50 /ul Negative [facility] Work Phone: [phone] RBC Ql (U) 0-5 SEEN /hpf 0-5 [facility] Work Phone: Urine clarityon 01-21-2022 Clarity (U) Clear Clear [facility] Work Phone: Urine color determinationon 01-21-2022 Color (U) Yellow Yellow [facility] Work Phone: Urine glucose detectionon Glucose Ql (U) Normal mg/dl Normal [facility] Work Phone: Urine leukocyte esterase det ection by dipstickon 01-21-2022 Leukocyte esterase Test strip Ql (U) Negative Negative [facility] Work Phone: Urine pHon 01-21-2022 pH (U) 5.0 [pH] 5.0 - 8.0 [facility] Work Phone: Urine sediment bacteria coun t by microscopy (number/high power field)on 01-21-2022 Bacteria LM.HPF (Urine sed) [#/Area] 0 /[HPF] None Seen [facility] Work Phone: [phone] Urine specific gravity measu rementon 01-21-2022 Specific gravity (U) [Rel density] 1.025 1.002-1.030 [facility] Work Phone: [phone] Urobilinogen Auto test strip Ql (U)on 01-21-2022 Urobilinogen Ql (U) Normal mg/dl [facility] Work Phone: CNOVon 04-30-2018 CNOV Office Visit (STEPHANIE ) -------- OSMAN JONES ([id number]) 1945 M Date Time Provider Department 04/30/18 11:20 AM SABRINA CORREA During your visit today, we recorded the following information about you: Pulse Respiration Blood pressure Weight 69/minute 16/minute 156/87 105.4 kg Height 1.829 m Sabrina Correa MD PHd 04/30/2018 12:02 PM Signed OUTPATIENT ADULT NEUROSURGICAL CONSULTATION Dear Dr. Saucedo, Thank you for your kind referral of Osman Jones for consultation. 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 Although his history is well known to you, please allow me to reiterate it for the purpose of my medical record. Osman Jones is accompanied to today's clinic visit by his spouse. Informant: History obtained from patient and spouse. Chief Complaint: Cognitive decline, disequilibrium History of Present Illness: Osman Jones is a 72 year old right-handed male with a hx of steady cognitive decline and disequilibrium who presents today for a new patient evaluation of NPH. He has developed significant disequilibrium especially while navigating turns while walking. He has fallen on occasion. He also has had appreciable cognitive decline. He denies any incontinence. His MRI demonstrates what appears to be age related volume loss and mild ventriculomegaly. 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 per Dr. Levin consisting of left internal mammary artery to left anterior descending coronary artery and reverse saphenous vein graft to first obtuse marginal coronary artery. - Unspecified cardiovascular disease 10/30/2004 - Unspecified essential hypertension 10/30/2004 PAST SURGICAL HISTORY Procedure Laterality Date - APPENDECTOMY 1980 - CABG (2) VEIN GRAFTS AND ARTERIAL GRAFT(S 10/22/2016 - COLONOSCOP W/ OR W/O BRSH SPEC 06/26/2008 Colonoscopy - LEFT HEART CATH,PERCUTANEOUS September 16, 2013 Cardiac cath, L heart - PAST SURGICAL HISTORY OF 04/08/1967 shrapnel removed from right shoulder - PAST SURGICAL HISTORY OF 04/12/08 tooth extraction - PERC TRANSL COR ANGIO September 1995 Percutaneous Transluminal Coronary Angio Status - REMOVAL OF TONSILS,<12 Y/O 1953 Tonsillectomy alone childhood Family History: FAMILY HISTORY Problem Relation Age of Onset - None Father age 89 - other (abdominal aneurysm) Father - Hypertension Mother cardiac arrest age 80 - Hypertension Brother Social History: Social History Marital status: Spouse name: Aure Years of education: Number of children: 2 Occupational History Occupation Employer Comment [employer]* Social History Main Topics Smoking status: Former Smoker Packs/day: 0.25 Years: 15.00 Types: Cigarettes Quit date: 03/09/1999 Smokeless tobacco: Never Used Alcohol use: No Drug use: No Sexual activity: Yes Partners with: Female Medications: Current Outpatient Prescriptions on File Prior to Visit: atorvastatin (LIPITOR) 40 mg tablet Take 2 tablets by mouth once daily. lisinopril (ZESTRIL, PRINIVIL) 20 mg tablet Take 1 tablet by mouth once daily. metoprolol tartrate, short acting, (LOPRESSOR) 25 mg tablet Take 1 tablet by mouth twice daily. nitroglycerin sublingual (NITROQUICK) 0.4 mg SL tablet Dissolve 1 tablet under the tongue every 5 minutes as needed for Chest Pain. warfarin (COUMADIN) 5 mg tablet Take 1 tablet by mouth once daily. Or as directed aspirin(ECOTRIN LOW STRENGTH 81 MG TAB) Take one(1) tablet daily. No current facility-administered medications on file prior to visit. Allergies: ALLERGIES No Known Allergies Review of Systems: General: No significant weight loss. Head: No significant history of headache. Eyes: No vision problems identified. Ears: No hearing problems identified Respiratory: Negative for cough, wheezing, or shortness of breath Cardiovascular: Denies any chest pain or shortness of breath with exertion Gastrointestinal: Negative for abdominal pain, vomiting, or constipation Genitourinary: Negative for dysuria or frequency Musculoskeletal: Negative for joint or muscle pain or swelling Skin: Negative for lesions, rash, and itching. Psychiatric: Negative for sleep disturbance, mood disorder and recent psychosocial stressors. Hematology/Lymphology: Negative for prolonged bleeding, bruising easily, and swollen nodes. Endocrine: Negative for short stature and polyuria Neurological: See History of Present Illness PHYSICAL EXAM: There were no vitals taken for this visit. General: well-appearing, undistressed and elderly man. He is non-dysmorphic, There are no neurocutaneous stigmata Head: normocephalic,atraumatic Eyes: Eyes are symmetrical, there are no signs of conjunctivitis, swelling or proptosis and gaze is conjugate Neck: Supple; good ROM. Abdomen:Soft, nontender, without palpable masses or organomegaly Musculoskeletal: Muscle tone normal in all four limbs without atrophy. Muscle strength 5/5 in both upper and lower extremities Moves upper and lower extremities actively and passively Mental status: clear, coherent speech; Neurological: Higher integrative functions: oriented to person, place and time Memory: Poor: 0/3 word recall at 5min 2nd cranial nerve: full visual elizalde 3rd, 4th and 6th cranial nerves: PERRL, full extraocular movements 5th cranial nerve: no decrease in facial sensation 7th cranial nerve: facial muscles symmetric and strong 8th cranial nerve: hears finger rub well bilaterally 9th and 10th cranial nerves: spontaneous palate movement, full and symmetric 11th cranial nerve: full strength in shoulder shrug 12th cranial nerve: tongue protrusion full and midline Sensory examination is intact to light touch and proprioception MEDICAL DECISION MAKING DATA REVIEW: Outside MRI: see HPI IMPRESSION In summary, Osman Jones is a 72 year old man with concerns for NPH. As such, we discussed a lumbar drain trial (to be coordinated with neurology) to assess symptomatolgy with drainage. Depending on the results of this evaluation, we will then determine if shunting is appropriate. I answered all question in detail, and patient voiced understanding, agreement and appreciation of the pending diagnosis, options and recommendations discussed. TREATMENT OPTIONS AND RISKS: I have discussed the management options and there respective risks and benefits with the patient. Greater than 50% of the clinic visit was spent in direct [id number] time counseling patient/coordinating care for total time spent of 30 minutes. Thank you for the opportunity to participate in Osman Jones's care. If I can answer any additional questions, I would be pleased to do so. Sincerely, CC: These final recommendations will be communicated back to the requesting physician/primary care physician by way of shared medical record Referring Provider: TAB GARCIA [[id number]] Allergies As of Date: 04/30/2018 (No Known Allergies) Date Reviewed: 04/30/2018 Reviewed by: Sabrina Correa - Fully Assessed Reason for Visit: Consult [502] Cmt: NPH Reason For Visit History Recorded Primary Visit Diagnosis:NPH (normal pressure hydrocephalus) [G91.2] Prescriptions as of 04/30/2018 Sig: ATORVASTATIN 40 MG TABLET Take 2 tablets by mouth once * LISINOPRIL 20 MG TABLET Take 1 tablet by mouth once d* METOPROLOL TARTRATE 25 MG TAB* Take 1 tablet by mouth twice * NITROGLYCERIN 0.4 MG SUBLINGU* Dissolve 1 tablet under the t* WARFARIN 5 MG TABLET Take 1 tablet by mouth once d* ECOTRIN LOW STRENGTH 81 MG TA* Take one(1) tablet daily. Problem List As Of Date 04/30/2018 Noted Resolved Coronary atherosclerosis [I25.10] INVALID FOR* More... PURE HYPERCHOLESTEROLEM [E78.00] INVALID FOR* Essential hypertension [I10] INVALID FOR* More... Obesity, unspecified [E66.9] INVALID FOR* Benign neoplasm of colon [D12.6] INVALID FOR*08/15/2013 More... Impaired fasting glucose [R73.01] INVALID FOR* Vasomotor rhinitis [J30.0] INVALID FOR*04/23/2017 S/P CABG x 2 [Z95.1] INVALID FOR* More... Left ventricular thrombus following ID (HCC) [I*INVALID FOR* Cerebral ventriculomegaly [G93.89] INVALID FOR* Dizziness [R42] INVALID FOR* Follow-up and Disposition History Recorded Encounter Status:Closed by HAROLDO MOORE, SABRINA PHD on 04/30/18 [facility] PROGRESSon 04-30-2018 Protein mass conc HNO ID: [id number] Author: Sabrina Correa Service: (none) Author Type: Physician Type: Progress Notes Filed: 04/30/2018 12:02 PM Note Text: OUTPATIENT ADULT NEUROSURGICAL CONSULTATION Dear Dr. Saucedo, Thank you for your kind referral of Osman Jones for consultation. 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 Although his history is well known to you, please allow me to reiterate it for the purpose of my medical record. Osman Jones is accompanied to today's clinic visit by his spouse. Informant: History obtained from patient and spouse. Chief Complaint: Cognitive decline, disequilibrium History of Present Illness: Osman Jones is a 72 year old right-handed male with a hx of steady cognitive decline and disequilibrium who presents today for a new patient evaluation of NPH. He has developed significant disequilibrium especially while navigating turns while walking. He has fallen on occasion. He also has had appreciable cognitive decline. He denies any incontinence. His MRI demonstrates what appears to be age related volume loss and mild ventriculomegaly. 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 per Dr. Levin consisting of left internal mammary artery to left anterior descending coronary artery and reverse saphenous vein graft to first obtuse marginal coronary artery. - Unspecified cardiovascular disease 10/30/2004 - Unspecified essential hypertension 10/30/2004 PAST SURGICAL HISTORY Procedure Laterality Date - APPENDECTOMY 1980 - CABG (2) VEIN GRAFTS AND ARTERIAL GRAFT(S 10/22/2016 - COLONOSCOP W/ OR W/O BRSH SPEC 06/26/2008 Colonoscopy - LEFT HEART CATH,PERCUTANEOUS September 16, 2013 Cardiac cath, L heart - PAST SURGICAL HISTORY OF 04/08/1967 shrapnel removed from right shoulder - PAST SURGICAL HISTORY OF 04/12/08 tooth extraction - PERC TRANSL COR ANGIO September 1995 Percutaneous Transluminal Coronary Angio Status - REMOVAL OF TONSILS,<12 Y/O 1953 Tonsillectomy alone childhood Family History: FAMILY HISTORY Problem Relation Age of Onset - None Father age 89 - other (abdominal aneurysm) Father - Hypertension Mother cardiac arrest age 80 - Hypertension Brother Social History: Social History Marital status: Spouse name: Aure Years of education: Number of children: 2 Occupational History Occupation Employer Comment [employer] Social History Main Topics Smoking status: Former Smoker Packs/day: 0.25 Years: 15.00 Types: Cigarettes Quit date: 03/09/1999 Smokeless tobacco: Never Used Alcohol use: No Drug use: No Sexual activity: Yes Partners with: Female Medications: Current Outpatient Prescriptions on File Prior to Visit: atorvastatin (LIPITOR) 40 mg tablet Take 2 tablets by mouth once daily. lisinopril (ZESTRIL, PRINIVIL) 20 mg tablet Take 1 tablet by mouth once daily. metoprolol tartrate, short acting, (LOPRESSOR) 25 mg tablet Take 1 tablet by mouth twice daily. nitroglycerin sublingual (NITROQUICK) 0.4 mg SL tablet Dissolve 1 tablet under the tongue every 5 minutes as needed for Chest Pain. warfarin (COUMADIN) 5 mg tablet Take 1 tablet by mouth once daily. Or as directed aspirin(ECOTRIN LOW STRENGTH 81 MG TAB) Take one(1) tablet daily. No current facility-administered medications on file prior to visit. Allergies: ALLERGIES No Known Allergies Review of Systems: General: No significant weight loss. Head: No significant history of headache. Eyes: No vision problems identified. Ears: No hearing problems identified Respiratory: Negative for cough, wheezing, or shortness of breath Cardiovascular: Denies any chest pain or shortness of breath with exertion Gastrointestinal: Negative for abdominal pain, vomiting, or constipation Genitourinary: Negative for dysuria or frequency Musculoskeletal: Negative for joint or muscle pain or swelling Skin: Negative for lesions, rash, and itching. Psychiatric: Negative for sleep disturbance, mood disorder and recent psychosocial stressors. Hematology/Lymphology: Negative for prolonged bleeding, bruising easily, and swollen nodes. Endocrine: Negative for short stature and polyuria Neurological: See History of Present Illness PHYSICAL EXAM: There were no vitals taken for this visit. General: well-appearing, undistressed and elderly man. He is non-dysmorphic, There are no neurocutaneous stigmata Head: normocephalic,atraumatic Eyes: Eyes are symmetrical, there are no signs of conjunctivitis, swelling or proptosis and gaze is conjugate Neck: Supple; good ROM. Abdomen:Soft, nontender, without palpable masses or organomegaly Musculoskeletal: Muscle tone normal in all four limbs without atrophy. Muscle strength 5/5 in both upper and lower extremities Moves upper and lower extremities actively and passively Mental status: clear, coherent speech; Neurological: Higher integrative functions: oriented to person, place and time Memory: Poor: 0/3 word recall at 5min 2nd cranial nerve: full visual elizalde 3rd, 4th and 6th cranial nerves: PERRL, full extraocular movements 5th cranial nerve: no decrease in facial sensation 7th cranial nerve: facial muscles symmetric and strong 8th cranial nerve: hears finger rub well bilaterally 9th and 10th cranial nerves: spontaneous palate movement, full and symmetric 11th cranial nerve: full strength in shoulder shrug 12th cranial nerve: tongue protrusion full and midline Sensory examination is intact to light touch and proprioception MEDICAL DECISION MAKING DATA REVIEW: Outside MRI: see HPI IMPRESSION In summary, Osman Jones is a 72 year old man with concerns for NPH. As such, we discussed a lumbar drain trial (to be coordinated with neurology) to assess symptomatolgy with drainage. Depending on the results of this evaluation, we will then determine if shunting is appropriate. I answered all question in detail, and patient voiced understanding, agreement and appreciation of the pending diagnosis, options and recommendations discussed. TREATMENT OPTIONS AND RISKS: I have discussed the management options and there respective risks and benefits with the patient. Greater than 50% of the clinic visit was spent in direct [id number] time counseling patient/coordinating care for total time spent of 30 minutes. Thank you for the opportunity to participate in Osman Jones's care. If I can answer any additional questions, I would be pleased to do so. Sincerely, CC: These final recommendations will be communicated back to the requesting physician/primary care physician by way of shared medical record Normal [facility] 04-28-2018 [facility] Telephone (NSAGBA) -------- OSMAN JONES ([id number]) 1945 M Date Time Provider Department 04/28/18 SABRINA CORREA [facility] During your visit today, we recorded the following information about you: Cathy Henry RN 04/28/2018 10:06 AM Signed Patient called and asked if he is bringing imaging discs. Patient will call us back. HORACIO Ferraro RN 04/28/2018 10:12 AM Addendum Patient's called back and said Yes he is bringing a disc to appointment. Cathy Henry RN Allergies As of Date: 04/28/2018 (No Known Allergies) Date Reviewed: 04/26/2018 Reviewed by: Tamia Carson LPN - Fully Assessed Reason for Visit: discs [Other] Prescriptions as of 04/28/2018 Sig: ATORVASTATIN 40 MG TABLET Take 2 tablets by mouth once * LISINOPRIL 20 MG TABLET Take 1 tablet by mouth once d* METOPROLOL TARTRATE 25 MG TAB* Take 1 tablet by mouth twice * NITROGLYCERIN 0.4 MG SUBLINGU* Dissolve 1 tablet under the t* WARFARIN 5 MG TABLET Take 1 tablet by mouth once d* ECOTRIN LOW STRENGTH 81 MG TA* Take one(1) tablet daily. Problem List As Of Date 04/28/2018 Noted Resolved Coronary atherosclerosis [I25.10] INVALID FOR* More... PURE HYPERCHOLESTEROLEM [E78.00] INVALID FOR* Essential hypertension [I10] INVALID FOR* More... Obesity, unspecified [E66.9] INVALID FOR* Benign neoplasm of colon [D12.6] INVALID FOR*08/15/2013 More... Impaired fasting glucose [R73.01] INVALID FOR* Vasomotor rhinitis [J30.0] INVALID FOR*04/23/2017 S/P CABG x 2 [Z95.1] INVALID FOR* More... Left ventricular thrombus following ID (HCC) [I*INVALID FOR* Cerebral ventriculomegaly [G93.89] INVALID FOR* Dizziness [R42] INVALID FOR* Encounter Status:Closed by CATHY HENRY RN on 04/28/18 Normal [facility] Pulmonary Functionon 017 Pulmonary Function Normal [facility]) CVS Discharge Summaryon 10-08 CVS Discharge Summary Normal [facility]) Cardiothoracic Progress Note on 10-26-2016 Cardiothoracic Progress Note Normal [facility]) Depart Summaryon 10-26-2016 Depart Summary Normal [facility]) Inpatient Patient Summaryon 10-26-2016 Inpatient Patient Summary Normal [facility]) .Auto Diffon 10-25-2016 Basophils Auto #/vol (Bld) 0.00 10 3/mcL Normal 0.00-0.27 [facility]) Comment on above: Performed By: #### C BC, ADIFF, ANEU, PRO, BMP, GFR ####[address] [address] Basophils/100 WBC Auto (Bld) 0.3 % Normal 0.0-2.5 [facility]) Comment on above: Performed By: #### C BC, ADIFF, ANEU, PRO, BMP, GFR ####[address] [address] Eosinophils 0.10 10 3/mcL Normal 0.00-0.65 [facility]) Comment on above: Performed By: #### C BC, ADIFF, ANEU, PRO, BMP, GFR ####[address] [address] Eosinophils/100 leukocytes 0.5 % Normal 0.0-6.0 [facility] ([place]) Comment on above: Performed By: #### C BC, ADIFF, ANEU, PRO, BMP, GFR ####[address] [address] Lymphocytes 2.00 10 3/mcL Normal 0.90-4.32 [facility] ([place]) Comment on above: Performed By: #### C BC, ADIFF, ANEU, PRO, BMP, GFR ####[address] [address] Lymphocytes/100 leukocytes 13.4 % Low 20.0-40.0 [facility] ([place]) Comment on above: Performed By: #### C BC, ADIFF, ANEU, PRO, BMP, GFR ####[address] [address] Monocytes 1.30 10 3/mcL Normal 0.09-1.40 [facility] ([place]) Comment on above: Performed By: #### C BC, ADIFF, ANEU, PRO, BMP, GFR ####[address] [address] Monocytes/100 leukocytes 8.8 % Normal 2.0-13.0 [facility] ([place]) Comment on above: Performed By: #### C BC, ADIFF, ANEU, PRO, BMP, GFR ####[address] [address] Neutrophils/100 WBC Auto (Bld) 77.0 % High 50.0-75.0 [facility] ([place]) Comment on above: Performed By: #### C BC, ADIFF, ANEU, PRO, BMP, GFR ####[address] [address] .NEUABSon 10-25-2016 Neutrophils 11.70 10 3/mcL High 2.25-8.10 [facility] ([place]) Comment on above: Performed By: #### C BC, ADIFF, ANEU, PRO, BMP, GFR ####[place] [address] BMPon 10-25-2016 BUN/Creatinine Ratio 21.3 ratio Normal 10.0-22.0 [facility] ([place]) Comment on above: Performed By: #### C BC, ADIFF, ANEU, PRO, BMP, GFR ####[place] [address] Calcium 8.4 mg/dL Normal 8.4-10.1 [facility] ([place]) Comment on above: Performed By: #### C BC, ADIFF, ANEU, PRO, BMP, GFR ####[place] [address] Chloride 110 mmol/L Normal 98-110 [facility] ([place]) Comment on above: Performed By: #### C BC, ADIFF, ANEU, PRO, BMP, GFR ####[place] [address] CO2 28 mmol/L Normal 22-32 [facility] ([place]) Comment on above: Performed By: #### C BC, ADIFF, ANEU, PRO, BMP, GFR ####[place] [address] Creatinine 0.75 mg/dL Normal 0.60-1.40 [facility] ([place]) Comment on above: Performed By: #### C BC, ADIFF, ANEU, PRO, BMP, GFR ####[place] [address] Electrolyte Balance 5.0 mEq/L Normal 4.0-15.0 Pending sale to [facility] ([place]) Comment on above: Performed By: #### C BC, ADIFF, ANEU, PRO, BMP, GFR ####[place] [address] Glucose mass conc 103 mg/dL Normal 82-115 [facility] ([place]) Comment on above: Performed By: #### C BC, ADIFF, ANEU, PRO, BMP, GFR ####[place] [address] Potassium molar conc 3.8 mmol/L Normal 3.5-5.0 [facility] ([place]) Comment on above: Performed By: #### C BC, ADIFF, ANEU, PRO, BMP, GFR ####[place] [address] Sodium 143 mmol/L Normal 136-145 [facility] ([place]) Comment on above: Performed By: #### C BC, ADIFF, ANEU, PRO, BMP, GFR ####[place] [address] Urea nitrogen 16.0 mg/dL Normal 8.0-22.0 [facility] ([place]) Comment on above: Performed By: #### C BC, ADIFF, ANEU, PRO, BMP, GFR ####[place] [address] CBCon 10-25-2016 Erythrocyte distribution width Auto Ratio (RBC) 13.4 % Normal 11.5-15.5 [facility] ([place]) Comment on above: Performed By: #### C BC, ADIFF, ANEU, PRO, BMP, GFR ####[place] [address] Erythrocytes (RBC) 3.89 10 6/mcL Low 4.50-6.00 [facility] ([place]) Comment on above: Performed By: #### C BC, ADIFF, ANEU, PRO, BMP, GFR ####[place] [address] Hematocrit (HCT) 35.4 % Low 40.0-52.0 [facility] ([place]) Comment on above: Performed By: #### C BC, ADIFF, ANEU, PRO, BMP, GFR ####[place] [address] Hemoglobin mass conc (Bld) 11.8 G/dL Low 13.0-17.5 [facility] ([place]) Comment on above: Performed By: #### C BC, ADIFF, ANEU, PRO, BMP, GFR ####[place] [address] MCH 30.3 pg Normal 27.0-33.0 [facility] ([place]) Comment on above: Performed By: #### C BC, ADIFF, ANEU, PRO, BMP, GFR ####[address] [address] MCHC mass conc (RBC) 33.3 G/dL Normal 32.0-36.0 [facility] ([place]) Comment on above: Performed By: #### C BC, ADIFF, ANEU, PRO, BMP, GFR ####[place] [address] MCV 91.0 fL Normal 81.0-100.0 [facility] ([place]) Comment on above: Performed By: #### C BC, ADIFF, ANEU, PRO, BMP, GFR ####[place] [address] Platelet mean volume (PMV) 10.6 fL High 6.4-10.5 [facility] ([place]) Comment on above: Performed By: #### C BC, ADIFF, ANEU, PRO, BMP, GFR ####[place] [address] Platelets 126 10 3/mcL Low 150-450 [facility] ([place]) Comment on above: Performed By: #### C BC, ADIFF, ANEU, PRO, BMP, GFR ####[place] [address] WBC (Leukocytes) 15.20 10 3/mcL High 4.50-10.80 [facility] ([place]) Comment on above: Performed By: #### C BC, ADIFF, ANEU, PRO, BMP, GFR ####[place] [address] Cardiothoracic Progress Note on 10-25-2016 Cardiothoracic Progress Note Normal [facility] ([place]) Endocrinology Progress Noteo n 10-25-2016 Endocrinology Progress Note Normal [facility] ([place]) GFRon 10-25-2016 eGFR (non-black) mL/min/{1.73_m2} Normal [facility] ([place]) Comment on above: Result Comment: GFR Population mean for , Non- Americans Ages 20-29 = 116 mL/min/1.73 sq.m. Ages 30-39 = 107 mL/min/1.73 sq.m. Ages 40-49 = 99 mL/min/1.73 sq.m. Ages 50-59 = 93 mL/min/1.73 sq.m. Ages 60-69 = 85 mL/min/1.73 sq.m. Ages 70+ = 75 mL/min/1.73 sq.m.Chronic Kidney Disease: Less than 60 mL/min/1.73 square metersEnd Stage Renal Disease: Less than 15 mL/min/1.73 square meters Performed By: #### C BC, ADIFF, ANEU, PRO, BMP, GFR ####[place] [id number] [place] [address] Manuel 10-25-2016 Potassium molar conc 3.6 mmol/L Normal 3.5-5.0 [facility] ([place]) Comment on above: Performed By: #### C BC, ADIFF, ANEU, PRO, BMP, GFR ####[place] [id number] [place] [address] XR CHEST 2 VIEWSon 7 XR CHEST 2 VIEWS ORIGINALXR CHEST 2 V IEWS CLINICAL STATEMENT: abnormal breath sounds , postop patient COMPARISON: 10/24/2016 FINDINGS: There is persistent left base opacity from small effusion and atelectasis. Right lung is clear. There may be minimal right pleural effusion also. No vascular congestion or pneumothorax. Left subclavian central line remains in place. Stable heart and mediastinum. IMPRESSION: Small left pleural effusion and adjacent atelectasis, unchanged. Interpreted By: Sandip Vaughn MDPreliminary Report By: Sandip Vaughn MDElectronically Signed By: Sandip Vaughn MD Dictated Date: 10/25/2016 9:53:54 AM Prelim Date: 10/25/2016 9:53:54 AM Sign Date: 10/25/2016 9:55:15 AM Normal [facility] ([place]) Cardiothoracic Progress Note on 10-24-2016 Cardiothoracic Progress Note Normal [facility] ([place]) Early Childhood Worker Progress Noteon 10-24-2016 Early Childhood Worker Progress Note Normal [facility] ([place]) Endocrinology Progress Noteo n 10-24-2016 Endocrinology Progress Note Normal [facility] ([place]) Manuel 10-24-2016 Potassium molar conc 4.0 mmol/L Normal 3.5-5.0 [facility] ([place]) Comment on above: Performed By: #### C BC, ADIFF, ANEU, PRO, BMP, GFR ####[place] [id number] [place] [address] LIPIDon 10-24-2016 Cholesterol mg/dL Normal 50-199 [facility] ([place]) Comment on above: Result Comment: Chol esterol Reference Interval:Less than 200 [id number] Borderline high syyq469 and above High risk Performed By: #### C BC, ADIFF, ANEU, PRO, BMP, GFR ####[place] [address] LDL Cholesterol Unable to Calculate Normal 0-129 [facility] ([place]) Comment on above: Result Comment: Unab le to calculate this test result accurately. Results used to calculate this test are outside the reportable range.LDL is a calculated result and requires a 12-hr fast.LDL Reference Interval:Less than 100 [id number] Near or above [id number] Borderline high [id number] High qzjp042 and above Very high risk Performed By: #### C BC, ADIFF, ANEU, PRO, BMP, GFR ####[place] [address] HDL Cholesterol 26 mg/dL Low 40-59 [facility] ([place]) Comment on above: Result Comment: HDL Reference Interval:Less than 40 Low - high risk60 or above Optimal/lowers risk Performed By: #### C BC, ADIFF, ANEU, PRO, BMP, GFR ####[place] [address] Triglyceride 72 mg/dL Normal 3-149 [facility] ([place]) Comment on above: Result Comment: Trig lyceride Reference Interval:Less than 150 [id number] Borderline high [id number] High psdq548 or higher Very high risk Performed By: #### C BC, ADIFF, ANEU, PRO, BMP, GFR ####[place] [address] TSHon 10-24-2016 Thyroid stimulating hormone (TSH) 2.490 mcIU/mL Normal 0.360-3.740 [facility] ([place]) Comment on above: Result Comment: Plea se note ? as of 09/20/16 new pediatric reference intervals were added for this test. Performed By: #### C BC, ADIFF, ANEU, PRO, BMP, GFR ####[address] [address] XR CHEST 2 VIEWSon 7 XR CHEST 2 VIEWS ORIGINALXR CHEST 2 V IEWS CLINICAL STATEMENT: Abnormal lung sounds COMPARISON: 10/23/2016 FINDINGS: LEFT subclavian catheter terminates at the upper SVC level. Cardiomegaly noted. Sternotomy wires are intact. Lung volumes are low with bibasilar atelectasis/airspace disease. There is no pneumothorax. Small pleural effusions demonstrated. IMPRESSION: Small bilateral pleural effusions with associated bibasilar atelectasis or other airspace disease Interpreted By: Shane Balderasreliminary Report By: Shane Balderas MDElectronically Signed By: Shane Balderas MD Dictated Date: 10/24/2016 9:12:16 AM Prelim Date: 10/24/2016 9:12:16 AM Sign Date: 10/24/2016 9:14:44 AM Normal [facility] ([place]) .Auto Diffon 10-23-2016 Basophils Auto #/vol (Bld) 0.00 10 3/mcL Normal 0.00-0.27 [facility] ([place]) Comment on above: Performed By: #### C BC, ADIFF, ANEU, PRO, BMP, GFR ####[address] [address] Basophils/100 WBC Auto (Bld) 0.0 % Normal 0.0-2.5 [facility] ([place]) Comment on above: Performed By: #### C BC, ADIFF, ANEU, PRO, BMP, GFR ####[address] [address] Eosinophils 0.00 10 3/mcL Normal 0.00-0.65 [facility] ([place]) Comment on above: Performed By: #### C BC, ADIFF, ANEU, PRO, BMP, GFR ####[address] [address] Eosinophils/100 leukocytes 0.0 % Normal 0.0-6.0 [facility] ([place]) Comment on above: Performed By: #### C BC, ADIFF, ANEU, PRO, BMP, GFR ####[address] [address] Lymphocytes 0.80 10 3/mcL Low 0.90-4.32 [facility] ([place]) Comment on above: Performed By: #### C BC, ADIFF, ANEU, PRO, BMP, GFR ####[address] [address] Lymphocytes/100 leukocytes 4.2 % Low 20.0-40.0 [facility] ([place]) Comment on above: Performed By: #### C BC, ADIFF, ANEU, PRO, BMP, GFR ####[place] [address] Monocytes 1.80 10 3/mcL High 0.09-1.40 [facility] ([place]) Comment on above: Performed By: #### C BC, ADIFF, ANEU, PRO, BMP, GFR ####[place] [address] Monocytes/100 leukocytes 9.3 % Normal 2.0-13.0 [facility] ([place]) Comment on above: Performed By: #### C BC, ADIFF, ANEU, PRO, BMP, GFR ####[address] [address] Neutrophils/100 WBC Auto (Bld) 86.5 % High 50.0-75.0 [facility] ([place]) Comment on above: Performed By: #### C BC, ADIFF, ANEU, PRO, BMP, GFR ####[place] [address] .NEUABSon 10-23-2016 Neutrophils 16.20 10 3/mcL High 2.25-8.10 [facility] ([place]) Comment on above: Performed By: #### C BC, ADIFF, ANEU, PRO, BMP, GFR ####[place] [address] BGon 10-23-2016 Barometric Pressure 731 mmHg Normal Pending sale to [facility] ([place]) Comment on above: Order Comment: POD 1 Performed By: #### U A ####[place] [address] Base excess 1.2 mmol/L Normal [facility] ([place]) Comment on above: Order Comment: POD 1 Performed By: #### U A ####[place] [address] Bicarbonate (HCO3) 24.7 mmol/L Normal 21.0-29.0 Pending sale to [facility] ([place]) Comment on above: Order Comment: POD 1 Performed By: #### U A ####[place] [address] CO2 25.7 mmol/L Normal 22.0-30.0 [facility] ([place]) Comment on above: Order Comment: POD 1 Performed By: #### U A ####[place] [address] CO2 34.9 mmHg Normal 32.0-46.0 [facility] ([place]) Comment on above: Order Comment: POD 1 Performed By: #### U A ####[place] [address] O2 saturation 97.8 % High 92.0-96.0 [facility] ([place]) Comment on above: Order Comment: POD 1 Performed By: #### U A ####[place] [address] Oxygen in arterial blood 100.6 mm[Hg] Normal 74.0-108.0 [facility] ([place]) Comment on above: Order Comment: POD 1 Performed By: #### U A ####[place] [address] pH of blood 7.467 [pH] High 7.380-7.460 [facility] ([place]) Comment on above: Order Comment: POD 1 Performed By: #### U A ####[place] [address] CBCon 10-23-2016 Erythrocyte distribution width Auto Ratio (RBC) 13.5 % Normal 11.5-15.5 [facility] ([place]) Comment on above: Performed By: #### C BC, ADIFF, ANEU, PRO, BMP, GFR ####[place] [address] Erythrocytes (RBC) 3.42 10 6/mcL Low 4.50-6.00 [facility] ([place] Comment on above: Performed By: #### C BC, ADIFF, ANEU, PRO, BMP, GFR ####[place] [address] Hematocrit (HCT) 30.5 % Low 40.0-52.0 [facility] ([place]) Comment on above: Performed By: #### C BC, ADIFF, ANEU, PRO, BMP, GFR ####[place] [address] Hemoglobin mass conc (Bld) 10.4 G/dL Low 13.0-17.5 [facility] ([place]) Comment on above: Performed By: #### C BC, ADIFF, ANEU, PRO, BMP, GFR ####[place] [address] MCH 30.4 pg Normal 27.0-33.0 [facility] ([place]) Comment on above: Performed By: #### C BC, ADIFF, ANEU, PRO, BMP, GFR ####[place] [address] MCHC mass conc (RBC) 34.0 G/dL Normal 32.0-36.0 [facility] ([place]) Comment on above: Performed By: #### C BC, ADIFF, ANEU, PRO, BMP, GFR ####[place] [address] MCV 89.4 fL Normal 81.0-100.0 [facility] ([place]) Comment on above: Performed By: #### C BC, ADIFF, ANEU, PRO, BMP, GFR ####[place] [address] Platelet mean volume (PMV) 10.0 fL Normal 6.4-10.5 [facility] ([place]) Comment on above: Performed By: #### C BC, ADIFF, ANEU, PRO, BMP, GFR ####[place] [address] Platelets 131 10 3/mcL Low 150-450 [facility] ([place]) Comment on above: Performed By: #### C BC, ADIFF, ANEU, PRO, BMP, GFR ####[place] [address] WBC (Leukocytes) 18.70 10 3/mcL High 4.50-10.80 [facility] ([place]) Comment on above: Performed By: #### C BC, ADIFF, ANEU, PRO, BMP, GFR ####[place] [address] CMPon 10-23-2016 Alanine aminotransferase (ALT) 15 U/L Normal 12-55 [facility] ([place]) Comment on above: Performed By: #### U A ####[place] [address] Albumin 4.3 G/dL Normal 3.2-4.8 [facility] ([place]) Comment on above: Performed By: #### U A ####[place] [address] Albumin/Globulin Ratio 2.0 {ratio} High 0.9-1.6 [facility] ([place]) Comment on above: Performed By: #### U A ####[place] [address] Alk Phos 37 U/L Low 38-126 [facility] ([place]) Comment on above: Performed By: #### U A ####[place] [address] Aspartate aminotransferase (AST) 16 U/L Normal 8-34 [facility] ([place]) Comment on above: Performed By: #### U A ####[place] [address] Bili Total 1.1 mg/dL Normal 0.2-1.2 [facility] ([place]) Comment on above: Performed By: #### U A ####[place] [address] BUN/Creatinine Ratio 18.7 ratio Normal 10.0-22.0 [facility] ([place]) Comment on above: Performed By: #### U A ####[place] [address] Calcium 8.0 mg/dL Low 8.4-10.1 [facility] ([place]) Comment on above: Performed By: #### U A ####[place] [address] Chloride 111 mmol/L High 98-110 [facility] ([place]) Comment on above: Performed By: #### U A ####[place] [address] CO2 26 mmol/L Normal 22-32 [facility] ([place]) Comment on above: Performed By: #### U A ####[place] [address] Creatinine 0.75 mg/dL Normal 0.60-1.40 [facility] ([place]) Comment on above: Performed By: #### U A ####[place] [address] Electrolyte Balance 8.0 mEq/L Normal 4.0-15.0 Pending sale to [facility] ([place]) Comment on above: Performed By: #### U A ####[place] [address] Globulin 2.2 G/dL Normal 1.5-3.8 [facility] ([place]) Comment on above: Performed By: #### U A ####[place] [address] Glucose mass conc 160 mg/dL High 82-115 [facility] ([place]) Comment on above: Performed By: #### U A ####[place] [address] Potassium molar conc 3.7 mmol/L Normal 3.5-5.0 [facility] ([place] Comment on above: Performed By: #### U A ####[place] [address] Protein 6.5 G/dL Normal 6.0-8.5 [facility] ([place]) Comment on above: Performed By: #### U A ####[place] [address] Sodium 145 mmol/L Normal 136-145 [facility] ([place]) Comment on above: Performed By: #### U A ####[place] [address] Urea nitrogen 14.0 mg/dL Normal 8.0-22.0 [facility] ([place]) Comment on above: Performed By: #### U A ####[place] [address] Cardiothoracic Progress Note on 10-23-2016 Cardiothoracic Progress Note Normal [facility]) Early Childhood Worker Progress Noteon 10-23-2016 Early Childhood Worker Progress Note Normal [facility]) Early Childhood Worker Progress Note Normal [facility]) Endocrinology Consultationon 10-23-2016 Endocrinology Consultation Normal [facility]) GFRon 10-23-2016 eGFR (non-black) mL/min/{1.73_m2} Normal [facility] ([place]) Comment on above: Result Comment: GFR Population mean for , Non- Americans Ages 20-29 = 116 mL/min/1.73 sq.m. Ages 30-39 = 107 mL/min/1.73 sq.m. Ages 40-49 = 99 mL/min/1.73 sq.m. Ages 50-59 = 93 mL/min/1.73 sq.m. Ages 60-69 = 85 mL/min/1.73 sq.m. Ages 70+ = 75 mL/min/1.73 sq.m.Chronic Kidney Disease: Less than 60 mL/min/1.73 square metersEnd Stage Renal Disease: Less than 15 mL/min/1.73 square meters Performed By: #### U A ####[place] [address] Manuel 10-23-2016 Potassium molar conc 4.6 mmol/L Normal 3.5-5.0 [facility] ([place] Comment on above: Performed By: #### C JEAN ESPINOZA ANEU, PRO, BMP, GFR ####[place] [address] Potassium molar conc 3.8 mmol/L Normal 3.5-5.0 [facility] ([place]) Comment on above: Performed By: #### C JEAN ESPINOZA, ANEU, PRO, BMP, GFR ####[place] [address] Potassium molar conc 4.2 mmol/L Normal 3.5-5.0 [facility]) Comment on above: Performed By: #### U A ####[address] [address] Operative Noteon 10-23-2016 Operative Note Normal [facility]) Platelet (Product)on 017 Platelet Product Ready Platelet Ready fo r Pickup Normal [facility]) Comment on above: Order Comment: ON HO LD FOR CVOR Performed By: #### U A ####[place] [address] XR CHEST 1 VIEWon 10-23-2016 XR CHEST 1 VIEW ORIGINALXR CHEST 1 V IEW, 10/23/2016 4:51 AM INDICATION: abnormal breath sounds COMPARISON: Previous day FINDINGS: Sternotomy, left chest tube and a left subclavian catheter are unchanged. Lung volumes are low, with crowding of vascular structures. The pulmonary vasculature is unremarkable in appearance. IMPRESSION: Extubation with decreased lung volumes. No pneumothorax. Interpreted By: Zafar Nelson MDPreliminary Report By: Zafar Nelson MDElectronically Signed By: Zafar Nelson MD Dictated Date: 10/23/2016 5:06:08 AM Prelim Date: 10/23/2016 5:06:08 AM Sign Date: 10/23/2016 5:07:21 AM Normal [facility]) APTTon 10-22-2016 aPTT 32.3 s Normal 25.0-35.0 [facility]) Comment on above: Result Comment: For Heparin anticoagulation therapy, the recommendedtherapeutic range is: 54-77 seconds (APTT Correlationwith Anti-Xa therapeutic range of 0.3-0.7 units/ml).PLEASE REFERENCE THE PHARMACY PROTOCOL FOR DOSING. Performed By: #### C BC, ADIFF, ANEU, PRO, BMP, GFR ####[place] [address] aPTT Unknown Normal [facility]) Comment on above: Performed By: #### C BC, ADIFF, ANEU, PRO, BMP, GFR ####[place] [address] BGon 10-22-2016 Barometric Pressure 735 mmHg Normal Pending sale to [facility] ([place]) Comment on above: Performed By: #### U A ####[place] [address] Base excess -2.8 mmol/L Normal [facility] ([place]) Comment on above: Performed By: #### U A ####[place] [address] Bicarbonate (HCO3) 21.5 mmol/L Normal 21.0-29.0 Pending sale to [facility] ([place]) Comment on above: Performed By: #### U A ####[place] [address] CO2 35.3 mmHg Normal 32.0-46.0 [facility] ([place]) Comment on above: Performed By: #### U A ####[place] [address] CO2 22.6 mmol/L Normal 22.0-30.0 [facility] ([place]) Comment on above: Performed By: #### U A ####[place] [address] O2 saturation 98.5 % High 92.0-96.0 [facility] ([place]) Comment on above: Performed By: #### U A ####[place] [address] Oxygen in arterial blood 140.2 mm[Hg] High 74.0-108.0 [facility] ([place]) Comment on above: Performed By: #### U A ####[place] [address] pH of blood 7.402 [pH] Normal 7.380-7.460 [facility] ([place]) Comment on above: Performed By: #### U A ####[place] [address] Barometric Pressure 735 mmHg Normal Pending sale to [facility] ([place]) Comment on above: Performed By: #### U A ####[address] [address] Base excess -5.3 mmol/L Normal [facility] ([place]) Comment on above: Performed By: #### U A ####[place] [address] Bicarbonate (HCO3) 19.4 mmol/L Low 21.0-29.0 Pending sale to [facility] ([place]) Comment on above: Performed By: #### U A ####[place] [address] CO2 20.5 mmol/L Low 22.0-30.0 [facility] ([place]) Comment on above: Performed By: #### U A ####[place] [address] CO2 35.1 mmHg Normal 32.0-46.0 [facility] ([place]) Comment on above: Performed By: #### U A ####[place] [address] O2 saturation 97.6 % High 92.0-96.0 [facility] ([place]) Comment on above: Performed By: #### U A ####[place] [address] Oxygen in arterial blood 109.8 mm[Hg] High 74.0-108.0 [facility] ([place]) Comment on above: Performed By: #### U A ####[place] [address] pH of blood 7.361 [pH] Low 7.380-7.460 [facility] ([place]) Comment on above: Performed By: #### U A ####[place] [address] Barometric Pressure 733 mmHg Normal Pending sale to [facility] ([place]) Comment on above: Performed By: #### B G ####[place] [address] Base excess -1.6 mmol/L Normal [facility] ([place]) Comment on above: Performed By: #### B G ####[place] [address] Bicarbonate (HCO3) 22.2 mmol/L Normal 21.0-29.0 Pending sale to [facility] ([place]) Comment on above: Performed By: #### B G ####[address] [address] CO2 34.5 mmHg Normal 32.0-46.0 [facility] ([place]) Comment on above: Performed By: #### B G ####[address] [address] CO2 23.3 mmol/L Normal 22.0-30.0 [facility] ([place]) Comment on above: Performed By: #### B G ####[place] [address] O2 saturation 97.6 % High 92.0-96.0 [facility] ([place]) Comment on above: Performed By: #### B G ####[place] [address] Oxygen in arterial blood 103.7 mm[Hg] Normal 74.0-108.0 [facility] ([place]) Comment on above: Performed By: #### B G ####[address] [address] pH of blood 7.427 [pH] Normal 7.380-7.460 [facility] ([place]) Comment on above: Performed By: #### B G ####[address] [address] Barometric Pressure 735 mmHg Normal Pending sale to [facility] ([place]) Comment on above: Performed By: #### B G ####[place] [address] Base excess -5.6 mmol/L Normal [facility] ([place]) Comment on above: Performed By: #### B G ####[address] [address] Bicarbonate (HCO3) 18.6 mmol/L Low 21.0-29.0 Pending sale to [facility] ([place]) Comment on above: Performed By: #### B G ####[place] [id number] CO2 19.6 mmol/L Low 22.0-30.0 [facility] ([place]) Comment on above: Performed By: #### B G ####[address] [address] CO2 32.6 mmHg Normal 32.0-46.0 [facility] ([place]) Comment on above: Performed By: #### B G ####[address] [address] O2 saturation 99.0 % High 92.0-96.0 [facility] ([place]) Comment on above: Performed By: #### B G ####[address] [address] Oxygen in arterial blood 169.1 mm[Hg] High 74.0-108.0 [facility] ([place]) Comment on above: Performed By: #### B G ####[address] [address] pH of blood 7.374 [pH] Low 7.380-7.460 [facility] ([place]) Comment on above: Performed By: #### B G ####[place] [address] Barometric Pressure 736 mmHg Normal Pending sale to [facility] ([place]) Comment on above: Order Comment: on Ro om Air. Preop Cardiothoracic OR (date) Performed By: #### B G ####[place] [address] Base excess -2.9 mmol/L Normal [facility] ([place]) Comment on above: Order Comment: on Ro om Air. Preop Cardiothoracic OR (date) Performed By: #### B G ####[address] [address] Bicarbonate (HCO3) 21.7 mmol/L Normal 21.0-29.0 Pending sale to [facility] ([place]) Comment on above: Order Comment: on Ro om Air. Preop Cardiothoracic OR (date) Performed By: #### B G ####[address] [address] CO2 37.6 mmHg Normal 32.0-46.0 [facility] ([place]) Comment on above: Order Comment: on Ro om Air. Preop Cardiothoracic OR (date) Performed By: #### B G ####[address] [address] CO2 22.8 mmol/L Normal 22.0-30.0 [facility] ([place]) Comment on above: Order Comment: on Ro om Air. Preop Cardiothoracic OR (date) Performed By: #### B G ####[address] [address] O2 saturation 99.4 % High 92.0-96.0 [facility] ([place]) Comment on above: Order Comment: on Ro om Air. Preop Cardiothoracic OR (date) Performed By: #### B G ####[address] [address] Oxygen in arterial blood 237.6 mm[Hg] High 74.0-108.0 [facility] ([place]) Comment on above: Order Comment: on Ro om Air. Preop Cardiothoracic OR (date) Performed By: #### B G ####[address] [address] pH of blood 7.379 [pH] Low 7.380-7.460 [facility] ([place]) Comment on above: Order Comment: on Ro om Air. Preop Cardiothoracic OR (date) Performed By: #### B G ####[address] [address] BGRPon 10-22-2016 Base Excess - POC -2.4 mmol/L Normal [facility] ([place]) Comment on above: Performed By: #### B GRP, CLRP, HGBRP, GLURP, KRP, HCTRP, NARP, CARP ####[address] [address] CO2 22.6 mmol/L Normal 21.0-29.0 [facility] ([place]) Comment on above: Performed By: #### B GRP, CLRP, HGBRP, GLURP, KRP, HCTRP, NARP, CARP ####[address] [address] CO2 23.8 mmol/L Normal 22.0-30.0 [facility] ([place]) Comment on above: Performed By: #### B GRP, CLRP, HGBRP, GLURP, KRP, HCTRP, NARP, CARP ####[place] [address] CO2 40.0 mmHg Normal 32.0-46.0 [facility] ([place]) Comment on above: Performed By: #### B GRP, CLRP, HGBRP, GLURP, KRP, HCTRP, NARP, CARP ####[place] [address] O2 saturation 98.1 % High 92.0-96.0 [facility] ([place]) Comment on above: Performed By: #### B GRP, CLRP, HGBRP, GLURP, KRP, HCTRP, NARP, CARP ####[place] [address] pH (poct) - POC 7.370 Low 7.380-7.460 [facility] ([place]) Comment on above: Performed By: #### B GRP, CLRP, HGBRP, GLURP, KRP, HCTRP, NARP, CARP ####[place] [address] PO2 - POC 143.2 mmHg High 74.0-108.0 [facility] ([place]) Comment on above: Performed By: #### B GRP, CLRP, HGBRP, GLURP, KRP, HCTRP, NARP, CARP ####[place] [address] PO2 - POC 377.6 mmHg High 74.0-108.0 [facility] ([place]) Comment on above: Performed By: #### C LRP, HGBRP, GLURP, KRP, HCTRP, NARP, CARP, BGRP, MGOR ####[place] [address] Base Excess - POC -0.9 mmol/L Normal [facility] ([place]) Comment on above: Performed By: #### C LRP, HGBRP, GLURP, KRP, HCTRP, NARP, CARP, BGRP, MGOR ####[place] [address] CO2 23.5 mmol/L Normal 21.0-29.0 [facility] ([place]) Comment on above: Performed By: #### C LRP, HGBRP, GLURP, KRP, HCTRP, NARP, CARP, BGRP, MGOR ####[place] [address] CO2 24.7 mmol/L Normal 22.0-30.0 [facility] ([place]) Comment on above: Performed By: #### C LRP, HGBRP, GLURP, KRP, HCTRP, NARP, CARP, BGRP, MGOR ####[place] [address] CO2 38.3 mmHg Normal 32.0-46.0 [facility] ([place]) Comment on above: Performed By: #### C LRP, HGBRP, GLURP, KRP, HCTRP, NARP, CARP, BGRP, MGOR ####[place] [address] O2 saturation 99.0 % High 92.0-96.0 [facility] ([place]) Comment on above: Performed By: #### C LRP, HGBRP, GLURP, KRP, HCTRP, NARP, CARP, BGRP, MGOR ####[place] [address] pH (poct) - POC 7.406 Normal 7.380-7.460 [facility] ([place]) Comment on above: Performed By: #### C LRP, HGBRP, GLURP, KRP, HCTRP, NARP, CARP, BGRP, MGOR ####[place] [address] Base Excess - POC -0.1 mmol/L Normal [facility] ([place]) Comment on above: Performed By: #### C BC, ADIFF, ANEU, PRO, BMP, GFR ####[place] [address] CO2 26.3 mmol/L Normal 22.0-30.0 [facility] ([place]) Comment on above: Performed By: #### C BC, ADIFF, ANEU, PRO, BMP, GFR ####[place] [address] CO2 25.0 mmol/L Normal 21.0-29.0 [facility] ([place]) Comment on above: Performed By: #### C BC, ADIFF, ANEU, PRO, BMP, GFR ####[place] [address] CO2 42.7 mmHg Normal 32.0-46.0 [facility] ([place]) Comment on above: Performed By: #### C BC, ADIFF, ANEU, PRO, BMP, GFR ####[place] [address] O2 saturation 98.9 % High 92.0-96.0 [facility] ([place]) Comment on above: Performed By: #### C BC, ADIFF, ANEU, PRO, BMP, GFR ####[place] [address] pH (poct) - POC 7.386 Normal 7.380-7.460 [facility] ([place]) Comment on above: Performed By: #### C BC, ADIFF, ANEU, PRO, BMP, GFR ####[place] [address] PO2 - POC 409.3 mmHg High 74.0-108.0 [facility] ([place]) Comment on above: Performed By: #### C BC, ADIFF, ANEU, PRO, BMP, GFR ####[place] [address] Base Excess - POC 0.7 mmol/L Normal [facility] ([place]) Comment on above: Performed By: #### C BC, ADIFF, ANEU, PRO, BMP, GFR ####[place] [address] CO2 26.6 mmol/L Normal 22.0-30.0 [facility] ([place]) Comment on above: Performed By: #### C BC, ADIFF, ANEU, PRO, BMP, GFR ####[place] [address] CO2 40.6 mmHg Normal 32.0-46.0 [facility] ([place]) Comment on above: Performed By: #### C BC, ADIFF, ANEU, PRO, BMP, GFR ####[place] [address] CO2 25.3 mmol/L Normal 21.0-29.0 [facility] ([place]) Comment on above: Performed By: #### C BC, ADIFF, ANEU, PRO, BMP, GFR ####[place] [address] O2 saturation 99.2 % High 92.0-96.0 [facility] ([place]) Comment on above: Performed By: #### C BC, ADIFF, ANEU, PRO, BMP, GFR ####[place] [address] pH (poct) - POC 7.413 Normal 7.380-7.460 [facility] ([place]) Comment on above: Performed By: #### C BC, ADIFF, ANEU, PRO, BMP, GFR ####[place] [address] PO2 - POC 321.6 mmHg High 74.0-108.0 [facility] ([place]) Comment on above: Performed By: #### C BC, ADIFF, ANEU, PRO, BMP, GFR ####[place] [address] Base Excess - POC 2.4 mmol/L Normal [facility] ([place]) Comment on above: Performed By: #### C BC, ADIFF, ANEU, PRO, BMP, GFR ####[place] [address] CO2 27.8 mmol/L Normal 22.0-30.0 [facility] ([place]) Comment on above: Performed By: #### C BC, ADIFF, ANEU, PRO, BMP, GFR ####[place] [address] CO2 26.6 mmol/L Normal 21.0-29.0 [facility] ([place]) Comment on above: Performed By: #### C BC, ADIFF, ANEU, PRO, BMP, GFR ####[place] [address] CO2 39.9 mmHg Normal 32.0-46.0 [facility] ([place]) Comment on above: Performed By: #### C BC, ADIFF, ANEU, PRO, BMP, GFR ####[place] [address] O2 saturation 98.9 % High 92.0-96.0 [facility] ([place]) Comment on above: Performed By: #### C BC, ADIFF, ANEU, PRO, BMP, GFR ####[place] [address] pH (poct) - POC 7.442 Normal 7.380-7.460 [facility] ([place]) Comment on above: Performed By: #### C BC, ADIFF, ANEU, PRO, BMP, GFR ####[place] [address] PO2 - POC 247.8 mmHg High 74.0-108.0 [facility] ([place]) Comment on above: Performed By: #### C BC, ADIFF, ANEU, PRO, BMP, GFR ####[place] [address] BMPon 10-22-2016 BUN/Creatinine Ratio 15.9 ratio Normal 10.0-22.0 [facility] ([place]) Comment on above: Performed By: #### C AITIN, HH, BMP, MG, PHOS, GFR ####[place] [address] Calcium 8.5 mg/dL Normal 8.4-10.1 [facility] ([place]) Comment on above: Performed By: #### C AION, HH, BMP, MG, PHOS, GFR ####[place] [address] CO2 23 mmol/L Normal 22-32 [facility] ([place]) Comment on above: Performed By: #### C AION, HH, BMP, MG, PHOS, GFR ####[place] [address] Creatinine 0.82 mg/dL Normal 0.60-1.40 [facility] ([place]) Comment on above: Performed By: #### C LUISA GORMAN, BMP, MG, PHOS, GFR ####[address] [address] Electrolyte Balance 11.0 mEq/L Normal 4.0-15.0 Pending sale to [facility] ([place]) Comment on above: Performed By: #### C SHERIF, HH, BMP, MG, PHOS, GFR ####[place] [address] Glucose mass conc 235 mg/dL High 82-115 [facility] ([place]) Comment on above: Performed By: #### C SHERIF, LUISA, BMP, MG, PHOS, GFR ####[place] [address] Potassium molar conc 3.7 mmol/L Normal 3.5-5.0 [facility] ([place]) Comment on above: Performed By: #### C SHERIF, HH, BMP, MG, PHOS, GFR ####[place] [address] Urea nitrogen 13.0 mg/dL Normal 8.0-22.0 [facility] ([place]) Comment on above: Performed By: #### C SHERIF, HH, BMP, MG, PHOS, GFR ####[place] [address] Chloride 107 mmol/L Normal 98-110 [facility] ([place]) Comment on above: Performed By: #### C AITIN, HH, BMP, MG, PHOS, GFR ####[place] [address] Sodium 141 mmol/L Normal 136-145 [facility] ([place]) Comment on above: Performed By: #### C AITIN, HH, BMP, MG, PHOS, GFR ####[place] [address] BUN/Creatinine Ratio 14.5 ratio Normal 10.0-22.0 [facility] ([place]) Comment on above: Performed By: #### C BC, ADIFF, ANEU, PRO, BMP, GFR ####[address] [address] Calcium 9.0 mg/dL Normal 8.4-10.1 [facility] ([place]) Comment on above: Performed By: #### C BC, ADIFF, ANEU, PRO, BMP, GFR ####[address] [address] Chloride 106 mmol/L Normal 98-110 [facility] ([place]) Comment on above: Performed By: #### C BC, ADIFF, ANEU, PRO, BMP, GFR ####[address] [address] CO2 23 mmol/L Normal 22-32 [facility] ([place]) Comment on above: Performed By: #### C BC, ADIFF, ANEU, PRO, BMP, GFR ####[place] [address] Creatinine 0.83 mg/dL Normal 0.60-1.40 [facility] ([place]) Comment on above: Performed By: #### C BC, ADIFF, ANEU, PRO, BMP, GFR ####[place] [address] Electrolyte Balance 12.0 mEq/L Normal 4.0-15.0 Pending sale to [facility] ([place]) Comment on above: Performed By: #### C BC, ADIFF, ANEU, PRO, BMP, GFR ####[place] [address] Glucose mass conc 112 mg/dL Normal 82-115 [facility] ([place]) Comment on above: Performed By: #### C BC, ADIFF, ANEU, PRO, BMP, GFR ####[address] [address] Potassium molar conc 3.8 mmol/L Normal 3.5-5.0 [facility] ([place]) Comment on above: Performed By: #### C BC, ADIFF, ANEU, PRO, BMP, GFR ####[place] [address] Sodium 141 mmol/L Normal 136-145 [facility] ([place]) Comment on above: Performed By: #### C BC, ADIFF, ANEU, PRO, BMP, GFR ####[place] [address] Urea nitrogen 12.0 mg/dL Normal 8.0-22.0 [facility] ([place]) Comment on above: Performed By: #### C BC, ADIFF, ANEU, PRO, BMP, GFR ####[place] [address] CAIONon 10-22-2016 Calcium Ionized 1.14 mmol/L Normal 1.12-1.32 [facility] ([place]) Comment on above: Performed By: #### B G ####[place] [address] CARPon 10-22-2016 Ionized Calcium - POC 1.23 mmol/L Normal 1.12-1.32 [facility] ([place]) Comment on above: Performed By: #### B G ####[place] [address] Ionized Calcium - POC 1.04 mmol/L Low 1.12-1.32 [facility] ([place]) Comment on above: Performed By: #### C LRP, HGBRP, GLURP, KRP, HCTRP, NARP, CARP, BGRP, MGOR ####[place] [address] Ionized Calcium - POC 0.99 mmol/L Low 1.12-1.32 [facility] ([place]) Comment on above: Performed By: #### C BC, ADIFF, ANEU, PRO, BMP, GFR ####[place] [address] Ionized Calcium - POC 1.08 mmol/L Low 1.12-1.32 [facility] ([place]) Comment on above: Performed By: #### C BC, ADIFF, ANEU, PRO, BMP, GFR ####[place] [address] Ionized Calcium - POC 1.15 mmol/L Normal 1.12-1.32 [facility] ([place]) Comment on above: Performed By: #### C BC, ADIFF, ANEU, PRO, BMP, GFR ####[address] [address] CLRPon 10-22-2016 Chloride 104 mmol/L Normal 98-110 [facility] ([place]) Comment on above: Performed By: #### B GRP, CLRP, HGBRP, GLURP, KRP, HCTRP, NARP, CARP ####[address] [address] Chloride 102 mmol/L Normal 98-110 [facility] ([place]) Comment on above: Performed By: #### C BC, ADIFF, ANEU, PRO, BMP, GFR ####[place] [address] Chloride 101 mmol/L Normal 98-110 [facility] ([place]) Comment on above: Performed By: #### C BC, ADIFF, ANEU, PRO, BMP, GFR ####[place] [address] Chloride 103 mmol/L Normal 98-110 [facility] ([place]) Comment on above: Performed By: #### C BC, ADIFF, ANEU, PRO, BMP, GFR ####[place] [address] Chloride 103 mmol/L Normal 98-110 [facility] ([place]) Comment on above: Performed By: #### C BC, ADIFF, ANEU, PRO, BMP, GFR ####[place] [address] CVOR Anesthesia Recordon CVOR Anesthesia Record Normal [facility] ([place]) CVOR Intraop Recordon 2016 CVOR Intraop Record Normal Pending sale to [facility] ([place]) FIBon 10-22-2016 Fibrinogen 635 mg/dL High 250-550 [facility] ([place]) Comment on above: Performed By: #### C BC, ADIFF, ANEU, PRO, BMP, GFR ####[address] [address] GFRon 10-22-2016 eGFR (non-black) mL/min/{1.73_m2} Normal [facility] ([place]) Comment on above: Result Comment: GFR Population mean for , Non- Americans Ages 20-29 = 116 mL/min/1.73 sq.m. Ages 30-39 = 107 mL/min/1.73 sq.m. Ages 40-49 = 99 mL/min/1.73 sq.m. Ages 50-59 = 93 mL/min/1.73 sq.m. Ages 60-69 = 85 mL/min/1.73 sq.m. Ages 70+ = 75 mL/min/1.73 sq.m.Chronic Kidney Disease: Less than 60 mL/min/1.73 square metersEnd Stage Renal Disease: Less than 15 mL/min/1.73 square meters Performed By: #### C AION, HH, BMP, MG, PHOS, GFR ####[address] [address] eGFR (non-black) mL/min/{1.73_m2} Normal [facility] ([place]) Comment on above: Result Comment: GFR Population mean for , Non- Americans Ages 20-29 = 116 mL/min/1.73 sq.m. Ages 30-39 = 107 mL/min/1.73 sq.m. Ages 40-49 = 99 mL/min/1.73 sq.m. Ages 50-59 = 93 mL/min/1.73 sq.m. Ages 60-69 = 85 mL/min/1.73 sq.m. Ages 70+ = 75 mL/min/1.73 sq.m.Chronic Kidney Disease: Less than 60 mL/min/1.73 square metersEnd Stage Renal Disease: Less than 15 mL/min/1.73 square meters Performed By: #### C BC, ADIFF, ANEU, PRO, BMP, GFR ####[address] [address] GLURPon 10-22-2016 Glucose mass conc 197 mg/dL High 82-115 [facility] ([place]) Comment on above: Performed By: #### B G ####[address] [address] Glucose mass conc 193 mg/dL High 82-115 [facility] ([place]) Comment on above: Performed By: #### C LRP, HGBRP, GLURP, KRP, HCTRP, NARP, CARP, BGRP, MGOR ####[address] [address] Glucose mass conc 160 mg/dL High 82-115 [facility] ([place]) Comment on above: Performed By: #### C BC, ADIFF, ANEU, PRO, BMP, GFR ####[address] [address] Glucose mass conc 168 mg/dL High 82-115 [facility] ([place]) Comment on above: Performed By: #### C BC, ADIFF, ANEU, PRO, BMP, GFR ####[place] [address] Glucose mass conc 120 mg/dL High 82-115 [facility] ([place]) Comment on above: Performed By: #### C BC, ADIFF, ANEU, PRO, BMP, GFR ####[place] [address] HCTRPon 10-22-2016 Hematocrit (HCT) 39.0 % Low 42.0-52.0 [facility] ([place]) Comment on above: Performed By: #### B G ####[place] [address] Hematocrit (HCT) 38.0 % Low 42.0-52.0 [facility] ([place]) Comment on above: Performed By: #### C LRP, HGBRP, GLURP, KRP, HCTRP, NARP, CARP, BGRP, MGOR ####[place] [address] Hematocrit (HCT) 36.0 % Low 42.0-52.0 [facility] ([place]) Comment on above: Performed By: #### C BC, ADIFF, ANEU, PRO, BMP, GFR ####[place] [address] Hematocrit (HCT) 45.0 % Normal 42.0-52.0 [facility] ([place]) Comment on above: Performed By: #### C BC, ADIFF, ANEU, PRO, BMP, GFR ####[place] [address] Hematocrit (HCT) 51.0 % Normal 42.0-52.0 [facility] ([place]) Comment on above: Performed By: #### C BC, ADIFF, ANEU, PRO, BMP, GFR ####[place] [address] HGBRPon 10-22-2016 Hemoglobin mass conc (Bld) 13.2 G/dL Normal 13.0-17.5 [facility] ([place]) Comment on above: Performed By: #### B GRP, CLRP, HGBRP, GLURP, KRP, HCTRP, NARP, CARP ####[place] [address] Hemoglobin mass conc (Bld) 13.0 G/dL Normal 13.0-17.5 [facility] ([place]) Comment on above: Performed By: #### C BC, ADIFF, ANEU, PRO, BMP, GFR ####[place] [address] Hemoglobin mass conc (Bld) 12.4 G/dL Low 13.0-17.5 [facility] ([place]) Comment on above: Performed By: #### C BC, ADIFF, ANEU, PRO, BMP, GFR ####[place] [address] Hemoglobin mass conc (Bld) 15.4 G/dL Normal 13.0-17.5 [facility] ([place]) Comment on above: Performed By: #### C BC, ADIFF, ANEU, PRO, BMP, GFR ####[place] [address] Hemoglobin mass conc (Bld) 17.3 G/dL Normal 13.0-17.5 [facility] ([place]) Comment on above: Performed By: #### C BC, ADIFF, ANEU, PRO, BMP, GFR ####[place] [address] HHon 10-22-2016 Hematocrit (HCT) 43.0 % Normal 40.0-52.0 [facility] ([place]) Comment on above: Performed By: #### B G ####[place] [address] Hemoglobin mass conc (Bld) 14.7 G/dL Normal 13.0-17.5 [facility] ([place]) Comment on above: Performed By: #### B G ####[place] [address] Manuel 10-22-2016 Potassium molar conc 3.7 mmol/L Normal 3.5-5.0 [facility] ([place]) Comment on above: Performed By: #### U A ####[place] [address] Potassium molar conc 3.4 mmol/L Low 3.5-5.0 [facility] ([place]) Comment on above: Performed By: #### U A ####[place] [address] Potassium molar conc 3.0 mmol/L Low 3.5-5.0 [facility] ([place]) Comment on above: Performed By: #### U A ####[place] [address] Potassium molar conc 2.9 mmol/L Low 3.5-5.0 [facility] ([place]) Comment on above: Performed By: #### K ####[place] [address] Potassium molar conc 3.0 mmol/L Low 3.5-5.0 [facility] ([place]) Comment on above: Performed By: #### K ####[place] [address] KRPon 10-22-2016 Potassium molar conc 3.9 mmol/L Normal 3.5-5.0 [facility] ([place]) Comment on above: Performed By: #### B G ####[place] [address] Potassium molar conc 4.6 mmol/L Normal 3.5-5.0 [facility] ([place]) Comment on above: Performed By: #### C LRP, HGBRP, GLURP, KRP, HCTRP, NARP, CARP, BGRP, MGOR ####[place] [address] Potassium molar conc 4.2 mmol/L Normal 3.5-5.0 [facility] ([place]) Comment on above: Performed By: #### C BC, ADIFF, ANEU, PRO, BMP, GFR ####[address] [address] Potassium molar conc 3.7 mmol/L Normal 3.5-5.0 [facility] ([place]) Comment on above: Performed By: #### C BC, ADIFF, ANEU, PRO, BMP, GFR ####[place] [address] Potassium molar conc 3.7 mmol/L Normal 3.5-5.0 [facility] ([place]) Comment on above: Performed By: #### C BC, ADIFF, ANEU, PRO, BMP, GFR ####[place] [address] MGon 10-22-2016 Magnesium 2.9 mg/dL High 1.6-2.4 [facility] ([place]) Comment on above: Performed By: #### C AION, HH, BMP, MG, PHOS, GFR ####[address] [address] MGORon 10-22-2016 Magnesium 3.5 mg/dL High 1.6-2.4 [facility] ([place]) Comment on above: Performed By: #### C LRP, HGBRP, GLURP, KRP, HCTRP, NARP, CARP, BGRP, MGOR ####[place] [address] Magnesium 2.2 mg/dL Normal 1.6-2.4 [facility] ([place]) Comment on above: Performed By: #### C BC, ADIFF, ANEU, PRO, BMP, GFR ####[place] [address] NARPon 10-22-2016 Sodium 136 mmol/L Normal 136-145 [facility] ([place]) Comment on above: Performed By: #### B G ####[place] [address] Sodium 134 mmol/L Low 136-145 [facility] ([place]) Comment on above: Performed By: #### C LRP, HGBRP, GLURP, KRP, HCTRP, NARP, CARP, BGRP, MGOR ####[place] [address] Sodium 133 mmol/L Low 136-145 [facility] ([place]) Comment on above: Performed By: #### C BC, ADIFF, ANEU, PRO, BMP, GFR ####[place] [address] Sodium 138 mmol/L Normal 136-145 [facility] ([place]) Comment on above: Performed By: #### C BC, ADIFF, ANEU, PRO, BMP, GFR ####[place] [address] Sodium 140 mmol/L Normal 136-145 [facility] ([place]) Comment on above: Performed By: #### C BC, ADIFF, ANEU, PRO, BMP, GFR ####[place] [address] PHOSon 10-22-2016 Phosphate 2.2 mg/dL Low 2.5-4.5 [facility] ([place]) Comment on above: Performed By: #### C AION, HH, BMP, MG, PHOS, GFR ####[place] [address] PLTon 10-22-2016 Platelets 195 10 3/mcL Normal 150-450 [facility] ([place]) Comment on above: Performed By: #### C BC, ADIFF, ANEU, PRO, BMP, GFR ####[address] [address] PLTFon 10-22-2016 Plt % Functional 96 % Normal 80-97 [facility] ([place]) Comment on above: Performed By: #### C BC, ADIFF, ANEU, PRO, BMP, GFR ####[place] [address] Plt ADP 7 k/mm3 Normal [facility] ([place]) Comment on above: Performed By: #### C BC, ADIFF, ANEU, PRO, BMP, GFR ####[address] [address] Plt Base 159 k/mm3 Normal [facility] ([place]) Comment on above: Performed By: #### C BC, ADIFF, ANEU, PRO, BMP, GFR ####[address] [address] Plt % Functional 97 % Normal 80-97 [facility] ([place]) Comment on above: Performed By: #### C BC, ADIFF, ANEU, PRO, BMP, GFR ####[address] [address] Plt ADP 4 k/mm3 Normal [facility] ([place]) Comment on above: Performed By: #### C BC, ADIFF, ANEU, PRO, BMP, GFR ####[address] [address] Plt Base 150 k/mm3 Normal [facility] ([place]) Comment on above: Performed By: #### C BC, ADIFF, ANEU, PRO, BMP, GFR ####[place] [address] PROon 10-22-2016 INR Coag RelTime (PPP) 1.0 {INR} Normal [facility] ([place]) Comment on above: Result Comment: [employer] (CHEST, 1992, 102:312S-25S)recommended therapeutic range for oral anticoagulant therapy is:LOW RISK: Prophylaxis of venous thrombosis INR: 2.0-3.0 Treatment of pulmonary embolism 2.0-3.0 Prevention of systemic embolism 2.0-3.0HIGH RISK: Mechanical prosthetic valves 2.5-3.5 Performed By: #### C BC, ADIFF, ANEU, PRO, BMP, GFR ####[place] [address] Prothrombin time (PT) Coag time (PPP) 11.3 s Normal 9.0-14.4 [facility] ([place]) Comment on above: Result Comment: Effe ctive 09/21/07, Protime results may be affected by some antibiotics (i.e. Ciprofloxacin, Azithromycin, Bactrim) which may potentiate the action of oral anticoagulants, with further increases in Protime/INR. Performed By: #### C BC, ADIFF, ANEU, PRO, BMP, GFR ####[place] [id number] [place] [address] XR CHEST 1 VIEWon 10-22-2016 XR CHEST 1 VIEW ORIGINALXR CHEST 1 V IEW Clinical Statement: Check NG tube placement COMPARISON: Chest x-ray the same day FINDINGS: The enteric tube tip is at the body of the stomach. Interpreted By: Adama Stillreliminary Report By: Adama Still MDElectronically Signed By: Adama Still MD Dictated Date: 10/22/2016 1:59:34 PM Prelim Date: 10/22/2016 1:59:34 PM Sign Date: 10/22/2016 2:00:15 PM Normal [facility] ([place]) XR CHEST 1 VIEW ORIGINALXR CHEST 1 V IEW Clinical Statement: Check line placement COMPARISON: 10/22/2016 and 10/20/2016 FINDINGS: There is a subcentimeter radiodensity projecting at the upper right lung of uncertain etiology. On the prior exam is visible in the soft tissues posterior to the chest. The endotracheal tube tip is 5 cm above the juancarlos. Left subclavian central venous line tip is at superior vena cava. There is a left-sided chest tube. Mediastinal drains are noted. There are median sternotomy wires. There is subsegmental atelectasis at the right lower lung and left lung base. No pneumothorax. The cardiac size is stable. The osseous structures are unchanged. IMPRESSION: Life support devices are in their expected locations. Interpreted By: Adama Stillreliminary Report By: Adama Still MDElectronically Signed By: Adama Still MD Dictated Date: 10/22/2016 1:57:48 PM Prelim Date: 10/22/2016 1:57:48 PM Sign Date: 10/22/2016 1:59:26 PM Normal [facility] ([place]) .Auto Diffon 10-21-2016 Basophils Auto #/vol (Bld) 0.10 10 3/mcL Normal 0.00-0.27 [facility] ([place]) Comment on above: Performed By: #### C BC, ADIFF, ANEU, PRO, BMP, GFR ####[place] [id number] [place] [address] Basophils/100 WBC Auto (Bld) 0.5 % Normal 0.0-2.5 [facility] ([place]) Comment on above: Performed By: #### C BC, ADIFF, ANEU, PRO, BMP, GFR ####[address] [address] Eosinophils 0.10 10 3/mcL Normal 0.00-0.65 [facility] ([place]) Comment on above: Performed By: #### C BC, ADIFF, ANEU, PRO, BMP, GFR ####[address] [address] Eosinophils/100 leukocytes 0.7 % Normal 0.0-6.0 [facility] ([place]) Comment on above: Performed By: #### C BC, ADIFF, ANEU, PRO, BMP, GFR ####[address] [address] Lymphocytes 2.40 10 3/mcL Normal 0.90-4.32 [facility] ([place]) Comment on above: Performed By: #### C BC, ADIFF, ANEU, PRO, BMP, GFR ####[address] [address] Lymphocytes/100 leukocytes 19.7 % Low 20.0-40.0 [facility] ([place]) Comment on above: Performed By: #### C BC, ADIFF, ANEU, PRO, BMP, GFR ####[address] [address] Monocytes 1.20 10 3/mcL Normal 0.09-1.40 [facility] ([place]) Comment on above: Performed By: #### C BC, ADIFF, ANEU, PRO, BMP, GFR ####[address] [address] Monocytes/100 leukocytes 9.6 % Normal 2.0-13.0 [facility] ([place]) Comment on above: Performed By: #### C BC, ADIFF, ANEU, PRO, BMP, GFR ####[address] [address] Neutrophils/100 WBC Auto (Bld) 69.5 % Normal 50.0-75.0 [facility] ([place]) Comment on above: Performed By: #### C BC, ADIFF, ANEU, PRO, BMP, GFR ####[place] [address] .NEUABSon 10-21-2016 Neutrophils 8.50 10 3/mcL High 2.25-8.10 [facility] ([place]) Comment on above: Performed By: #### C BC, ADIFF, ANEU, PRO, BMP, GFR ####[place] [address] A1Con 10-21-2016 Hemoglobin A1c/Hemoglobin.total mass fraction (Bld) 6.0 % Normal 4.0-6.0 [facility] ([place]) Comment on above: Performed By: #### C BC, ADIFF, ANEU, PRO, BMP, GFR ####[place] [address] ABO/Rhon 10-21-2016 ABO/Rh Interp Positive Invalid Interpretation Code [facility] ([place]) Comment on above: Performed By: #### C BC, ADIFF, ANEU, PRO, BMP, GFR ####[place] [address] ABSon 10-21-2016 Antibody Screen Tango Negative Normal [facility] ([place]) Comment on above: Performed By: #### C BC, ADIFF, ANEU, PRO, BMP, GFR ####[place] [address] APTTon 10-21-2016 aPTT 30.9 s Normal 25.0-35.0 [facility] ([place]) Comment on above: Result Comment: For Heparin anticoagulation therapy, the recommendedtherapeutic range is: 54-77 seconds (APTT Correlationwith Anti-Xa therapeutic range of 0.3-0.7 units/ml).PLEASE REFERENCE THE PHARMACY PROTOCOL FOR DOSING. Performed By: #### C BC, ADIFF, ANEU, PRO, BMP, GFR ####[place] [address] aPTT None Normal [facility] ([place]) Comment on above: Performed By: #### C BC, ADIFF, ANEU, PRO, BMP, GFR ####[place] [address] BMPon 10-21-2016 BUN/Creatinine Ratio 13.9 ratio Normal 10.0-22.0 [facility] ([place]) Comment on above: Performed By: #### C BC, ADIFF, ANEU, PRO, BMP, GFR ####[place] [address] Creatinine 0.79 mg/dL Normal 0.60-1.40 [facility] ([place]) Comment on above: Performed By: #### C BC, ADIFF, ANEU, PRO, BMP, GFR ####[place] [address] Calcium 8.6 mg/dL Normal 8.4-10.1 [facility] ([place]) Comment on above: Performed By: #### C BC, ADIFF, ANEU, PRO, BMP, GFR ####[place] [address] Chloride 109 mmol/L Normal 98-110 [facility] ([place]) Comment on above: Performed By: #### C BC, ADIFF, ANEU, PRO, BMP, GFR ####[place] [address] CO2 27 mmol/L Normal 22-32 [facility] ([place]) Comment on above: Performed By: #### C BC, ADIFF, ANEU, PRO, BMP, GFR ####[address] [address] Electrolyte Balance 6.0 mEq/L Normal 4.0-15.0 Pending sale to [facility] ([place]) Comment on above: Performed By: #### C BC, ADIFF, ANEU, PRO, BMP, GFR ####[address] [address] Glucose mass conc 99 mg/dL Normal 82-115 [facility] ([place]) Comment on above: Performed By: #### C BC, ADIFF, ANEU, PRO, BMP, GFR ####[address] [address] Potassium molar conc 3.6 mmol/L Normal 3.5-5.0 [facility] ([place]) Comment on above: Performed By: #### C BC, ADIFF, ANEU, PRO, BMP, GFR ####[place] [address] Sodium 142 mmol/L Normal 136-145 [facility] ([place]) Comment on above: Performed By: #### C BC, ADIFF, ANEU, PRO, BMP, GFR ####[place] [address] Urea nitrogen 11.0 mg/dL Normal 8.0-22.0 [facility] ([place]) Comment on above: Performed By: #### C BC, ADIFF, ANEU, PRO, BMP, GFR ####[place] [address] CBCon 10-21-2016 Erythrocyte distribution width Auto Ratio (RBC) 13.5 % Normal 11.5-15.5 [facility] ([place]) Comment on above: Performed By: #### C BC, ADIFF, ANEU, PRO, BMP, GFR ####[place] [address] Erythrocytes (RBC) 5.22 10 6/mcL Normal 4.50-6.00 [facility] ([place]) Comment on above: Performed By: #### C BC, ADIFF, ANEU, PRO, BMP, GFR ####[place] [address] Hematocrit (HCT) 47.4 % Normal 40.0-52.0 [facility] ([place]) Comment on above: Performed By: #### C BC, ADIFF, ANEU, PRO, BMP, GFR ####[place] [address] Hemoglobin mass conc (Bld) 16.0 G/dL Normal 13.0-17.5 [facility] ([place]) Comment on above: Performed By: #### C BC, ADIFF, ANEU, PRO, BMP, GFR ####[place] [address] MCH 30.6 pg Normal 27.0-33.0 [facility] ([place]) Comment on above: Performed By: #### C BC, ADIFF, ANEU, PRO, BMP, GFR ####[id number] [place] [address] MCHC mass conc (RBC) 33.7 G/dL Normal 32.0-36.0 [facility] ([place]) Comment on above: Performed By: #### C BC, ADIFF, ANEU, PRO, BMP, GFR ####[address] [address] MCV 90.8 fL Normal 81.0-100.0 [facility] ([place]) Comment on above: Performed By: #### C BC, ADIFF, ANEU, PRO, BMP, GFR ####[address] [address] Platelet mean volume (PMV) 9.6 fL Normal 6.4-10.5 [facility] ([place]) Comment on above: Performed By: #### C BC, ADIFF, ANEU, PRO, BMP, GFR ####[address] [address] Platelets 162 10 3/mcL Normal 150-450 [facility] ([place]) Comment on above: Performed By: #### C BC, ADIFF, ANEU, PRO, BMP, GFR ####[address] [address] WBC (Leukocytes) 12.30 10 3/mcL High 4.50-10.80 [facility] ([place]) Comment on above: Performed By: #### C BC, ADIFF, ANEU, PRO, BMP, GFR ####[address] [address] Early Childhood Worker Progress Noteon 10-21-2016 Early Childhood Worker Progress Note Normal [facility] ([place]) Consultation Noteon 10-22-19 17 Consultation Note Normal [facility]) GFRon 10-21-2016 eGFR (non-black) mL/min/{1.73_m2} Normal [facility] ([place]) Comment on above: Result Comment: GFR Population mean for , Non- Americans Ages 20-29 = 116 mL/min/1.73 sq.m. Ages 30-39 = 107 mL/min/1.73 sq.m. Ages 40-49 = 99 mL/min/1.73 sq.m. Ages 50-59 = 93 mL/min/1.73 sq.m. Ages 60-69 = 85 mL/min/1.73 sq.m. Ages 70+ = 75 mL/min/1.73 sq.m.Chronic Kidney Disease: Less than 60 mL/min/1.73 square metersEnd Stage Renal Disease: Less than 15 mL/min/1.73 square meters Performed By: #### C BC, ADIFF, ANEU, PRO, BMP, GFR ####[place] [address] HFPon 10-21-2016 Alanine aminotransferase (ALT) 27 U/L Normal 12-55 [facility] ([place]) Comment on above: Performed By: #### C BC, ADIFF, ANEU, PRO, BMP, GFR ####[place] [address] Albumin 3.3 G/dL Normal 3.2-4.8 [facility] ([place]) Comment on above: Performed By: #### C BC, ADIFF, ANEU, PRO, BMP, GFR ####[place] [address] Albumin/Globulin Ratio 1.1 {ratio} Normal 0.9-1.6 A [facility] ([place]) Comment on above: Performed By: #### C BC, ADIFF, ANEU, PRO, BMP, GFR ####[place] [address] Alk Phos 76 U/L Normal 38-126 [facility] ([place]) Comment on above: Performed By: #### C BC, ADIFF, ANEU, PRO, BMP, GFR ####[place] [address] Aspartate aminotransferase (AST) 20 U/L Normal 8-34 [facility] ([place]) Comment on above: Performed By: #### C BC, ADIFF, ANEU, PRO, BMP, GFR ####[place] [address] Bili Direct 0.3 mg/dL Normal 0.0-0.4 [facility] ([place]) Comment on above: Performed By: #### C BC, ADIFF, ANEU, PRO, BMP, GFR ####[place] [address] Bili Indirect 1.0 mg/dL Normal 0.1-10.0 [facility] ([place]) Comment on above: Performed By: #### C BC, ADIFF, ANEU, PRO, BMP, GFR ####[place] [address] Bili Total 1.3 mg/dL High 0.2-1.2 [facility] ([place]) Comment on above: Performed By: #### C BC, ADIFF, ANEU, PRO, BMP, GFR ####[place] [address] Globulin 3.1 G/dL Normal 1.5-3.8 [facility] ([place]) Comment on above: Performed By: #### C BC, ADIFF, ANEU, PRO, BMP, GFR ####[place] [address] Protein 6.4 G/dL Normal 6.0-8.5 [facility] ([place]) Comment on above: Performed By: #### C BC, ADIFF, ANEU, PRO, BMP, GFR ####[place] [address] LIPIDon 10-21-2016 Cholesterol 96 mg/dL Normal 50-199 [facility] ([place]) Comment on above: Result Comment: Chol esterol Reference Interval:Less than 200 [id number] Borderline high [id number] and above High risk Performed By: #### C BC, ADIFF, ANEU, PRO, BMP, GFR ####[place] [address] HDL Cholesterol 39 mg/dL Low 40-59 [facility] ([place]) Comment on above: Result Comment: HDL Reference Interval:Less than 40 Low - high risk60 or above Optimal/lowers risk Performed By: #### C BC, ADIFF, ANEU, PRO, BMP, GFR ####[place] [address] LDL Cholesterol 34 mg/dL Normal 0-129 [facility] ([place]) Comment on above: Result Comment: LDL is a calculated result and requires a 12- hr fast.LDL Reference Interval:Less than 100 [id number] Near or above [id number] Borderline high [id number] High [id number] and above Very high risk Performed By: #### C BC, ADIFF, ANEU, PRO, BMP, GFR ####[address] [address] Triglyceride 114 mg/dL Normal 3-149 [facility] ([place]) Comment on above: Result Comment: Trig lyceride Reference Interval:Less than 150 [id number] Borderline high [id number] High [id number] or higher Very high risk Performed By: #### C BC, ADIFF, ANEU, PRO, BMP, GFR ####[address] [address] Progress Noteon 10-21-2016 Progress Note Normal [facility] ([place]) RBC (Product)on 10-21-2016 Erythrocytes (RBC) RBC Ready for Pickup Normal [facility] ([place]) Comment on above: Order Comment: On Ho ld for Surgery 10/22/16 Performed By: #### C BC, ADIFF, ANEU, PRO, BMP, GFR ####[place] [address] .Auto Diffon 10-20-2016 Basophils Auto #/vol (Bld) 0.10 10 3/mcL Normal 0.00-0.27 [facility] ([place]) Comment on above: Performed By: #### C BC, ADIFF, ANEU, PRO, BMP, GFR ####[address] [address] Basophils/100 WBC Auto (Bld) 0.5 % Normal 0.0-2.5 [facility] ([place]) Comment on above: Performed By: #### C BC, ADIFF, ANEU, PRO, BMP, GFR ####[address] [address] Eosinophils 0.10 10 3/mcL Normal 0.00-0.65 [facility] ([place]) Comment on above: Performed By: #### C BC, ADIFF, ANEU, PRO, BMP, GFR ####[address] [address] Eosinophils/100 leukocytes 0.7 % Normal 0.0-6.0 [facility] ([place]) Comment on above: Performed By: #### C BC, ADIFF, ANEU, PRO, BMP, GFR ####[place] [address] Lymphocytes 1.80 10 3/mcL Normal 0.90-4.32 [facility] ([place]) Comment on above: Performed By: #### C BC, ADIFF, ANEU, PRO, BMP, GFR ####[address] [address] Lymphocytes/100 leukocytes 13.4 % Low 20.0-40.0 [facility] ([place]) Comment on above: Performed By: #### C BC, ADIFF, ANEU, PRO, BMP, GFR ####[place] [address] Monocytes 1.20 10 3/mcL Normal 0.09-1.40 [facility] ([place]) Comment on above: Performed By: #### C BC, ADIFF, ANEU, PRO, BMP, GFR ####[place] [address] Monocytes/100 leukocytes 8.7 % Normal 2.0-13.0 [facility] ([place]) Comment on above: Performed By: #### C BC, ADIFF, ANEU, PRO, BMP, GFR ####[address] [address] Neutrophils/100 WBC Auto (Bld) 76.7 % High 50.0-75.0 [facility] ([place]) Comment on above: Performed By: #### C BC, ADIFF, ANEU, PRO, BMP, GFR ####[place] [address] .NEUABSon 10-20-2016 Neutrophils 10.30 10 3/mcL High 2.25-8.10 [facility] ([place]) Comment on above: Performed By: #### C BC, ADIFF, ANEU, PRO, BMP, GFR ####[place] [address] BGon 10-20-2016 Barometric Pressure 729 mmHg Normal Pending sale to [facility] ([place]) Comment on above: Order Comment: on Ro om Air. Preop Cardiothoracic OR (date) Performed By: #### B G ####[address] [address] Base excess 2.2 mmol/L Normal [facility] ([place]) Comment on above: Order Comment: on Ro om Air. Preop Cardiothoracic OR (date) Performed By: #### B G ####[address] [address] Bicarbonate (HCO3) 25.9 mmol/L Normal 21.0-29.0 Pending sale to [facility] ([place]) Comment on above: Order Comment: on Ro om Air. Preop Cardiothoracic OR (date) Performed By: #### B G ####[place] [address] CO2 37.6 mmHg Normal 32.0-46.0 [facility] ([place]) Comment on above: Order Comment: on Ro om Air. Preop Cardiothoracic OR (date) Performed By: #### B G ####[place] [address] CO2 27.1 mmol/L Normal 22.0-30.0 [facility] ([place]) Comment on above: Order Comment: on Ro om Air. Preop Cardiothoracic OR (date) Performed By: #### B G ####[place] [address] O2 saturation 95.5 % Normal 92.0-96.0 [facility] ([place]) Comment on above: Order Comment: on Ro om Air. Preop Cardiothoracic OR (date) Performed By: #### B G ####[address] [address] Oxygen in arterial blood 77.4 mm[Hg] Normal 74.0-108.0 [facility] ([place]) Comment on above: Order Comment: on Ro om Air. Preop Cardiothoracic OR (date) Performed By: #### B G ####[address] [address] pH of blood 7.456 [pH] Normal 7.380-7.460 [facility] ([place]) Comment on above: Order Comment: on Ro om Air. Preop Cardiothoracic OR (date) Performed By: #### B G ####[place] [address] BMPon 10-20-2016 BUN/Creatinine Ratio 14.9 ratio Normal 10.0-22.0 [facility] ([place]) Comment on above: Performed By: #### C BC, ADIFF, ANEU, PRO, BMP, GFR ####[place] [address] Calcium 9.2 mg/dL Normal 8.4-10.1 [facility] ([place]) Comment on above: Performed By: #### C BC, ADIFF, ANEU, PRO, BMP, GFR ####[place] [address] Chloride 109 mmol/L Normal 98-110 [facility] ([place]) Comment on above: Performed By: #### C BC, ADIFF, ANEU, PRO, BMP, GFR ####[place] [address] CO2 27 mmol/L Normal 22-32 [facility] ([place]) Comment on above: Performed By: #### C BC, ADIFF, ANEU, PRO, BMP, GFR ####[place] [address] Creatinine 0.87 mg/dL Normal 0.60-1.40 [facility] ([place]) Comment on above: Performed By: #### C BC, ADIFF, ANEU, PRO, BMP, GFR ####[place] [address] Electrolyte Balance 5.0 mEq/L Normal 4.0-15.0 Pending sale to [facility] ([place]) Comment on above: Performed By: #### C BC, ADIFF, ANEU, PRO, BMP, GFR ####[place] [address] Glucose mass conc 111 mg/dL Normal 82-115 [facility] ([place]) Comment on above: Performed By: #### C BC, ADIFF, ANEU, PRO, BMP, GFR ####[place] [address] Potassium molar conc 3.9 mmol/L Normal 3.5-5.0 [facility] ([place]) Comment on above: Performed By: #### C BC, ADIFF, ANEU, PRO, BMP, GFR ####[place] [address] Sodium 141 mmol/L Normal 136-145 [facility] ([place]) Comment on above: Performed By: #### C BC, ADIFF, ANEU, PRO, BMP, GFR ####[place] [address] Urea nitrogen 13.0 mg/dL Normal 8.0-22.0 [facility] ([place]) Comment on above: Performed By: #### C BC, ADIFF, ANEU, PRO, BMP, GFR ####[place] [address] CBCon 10-20-2016 Erythrocyte distribution width Auto Ratio (RBC) 13.4 % Normal 11.5-15.5 [facility] ([place]) Comment on above: Performed By: #### C BC, ADIFF, ANEU, PRO, BMP, GFR ####[place] [address] Erythrocytes (RBC) 5.65 10 6/mcL Normal 4.50-6.00 [facility] ([place]) Comment on above: Performed By: #### C BC, ADIFF, ANEU, PRO, BMP, GFR ####[place] [address] Hematocrit (HCT) 51.1 % Normal 40.0-52.0 [facility] ([place]) Comment on above: Performed By: #### C BC, ADIFF, ANEU, PRO, BMP, GFR ####[place] [address] Hemoglobin mass conc (Bld) 17.2 G/dL Normal 13.0-17.5 [facility] ([place]) Comment on above: Performed By: #### C BC, ADIFF, ANEU, PRO, BMP, GFR ####[place] [address] MCH 30.5 pg Normal 27.0-33.0 [facility] ([place]) Comment on above: Performed By: #### C BC, ADIFF, ANEU, PRO, BMP, GFR ####[place] [address] MCHC mass conc (RBC) 33.7 G/dL Normal 32.0-36.0 [facility] ([place]) Comment on above: Performed By: #### C BC, ADIFF, ANEU, PRO, BMP, GFR ####[place] [address] MCV 90.5 fL Normal 81.0-100.0 [facility] ([place]) Comment on above: Performed By: #### C BC, ADIFF, ANEU, PRO, BMP, GFR ####[place] [address] Platelet mean volume (PMV) 9.3 fL Normal 6.4-10.5 [facility] ([place]) Comment on above: Performed By: #### C BC, ADIFF, ANEU, PRO, BMP, GFR ####[place] [address] Platelets 188 10 3/mcL Normal 150-450 [facility] ([place]) Comment on above: Performed By: #### C BC, ADIFF, ANEU, PRO, BMP, GFR ####[place] [address] WBC (Leukocytes) 13.40 10 3/mcL High 4.50-10.80 [facility] ([place]) Comment on above: Performed By: #### C BC, ADIFF, ANEU, PRO, BMP, GFR ####[place] [address] Cardiothoracic Consultationo n 10-20-2016 Cardiothoracic Consultation Normal [facility] ([place]) GFRon 10-20-2016 eGFR (non-black) mL/min/{1.73_m2} Normal [facility] ([place]) Comment on above: Result Comment: GFR Population mean for , Non- Americans Ages 20-29 = 116 mL/min/1.73 sq.m. Ages 30-39 = 107 mL/min/1.73 sq.m. Ages 40-49 = 99 mL/min/1.73 sq.m. Ages 50-59 = 93 mL/min/1.73 sq.m. Ages 60-69 = 85 mL/min/1.73 sq.m. Ages 70+ = 75 mL/min/1.73 sq.m.Chronic Kidney Disease: Less than 60 mL/min/1.73 square metersEnd Stage Renal Disease: Less than 15 mL/min/1.73 square meters Performed By: #### C BC, ADIFF, ANEU, PRO, BMP, GFR ####[address] [address] PROon 10-20-2016 INR Coag RelTime (PPP) 1.0 {INR} Normal [facility] ([place]) Comment on above: Result Comment: [employer] (CHEST, 1992, 102:312S-25S)recommended therapeutic range for oral anticoagulant therapy is:LOW RISK: Prophylaxis of venous thrombosis INR: 2.0-3.0 Treatment of pulmonary embolism 2.0-3.0 Prevention of systemic embolism 2.0-3.0HIGH RISK: Mechanical prosthetic valves 2.5-3.5 Performed By: #### C BC, ADIFF, ANEU, PRO, BMP, GFR ####[address] [address] Prothrombin time (PT) Coag time (PPP) 12.1 s Normal 9.0-14.4 [facility] ([place]) Comment on above: Result Comment: Effe ctive 09/21/07, Protime results may be affected by some antibiotics (i.e. Ciprofloxacin, Azithromycin, Bactrim) which may potentiate the action of oral anticoagulants, with further increases in Protime/INR. Performed By: #### C BC, ADIFF, ANEU, PRO, BMP, GFR ####[address] [address] UAon 10-20-2016 UA Appear Clear Normal Clear [facility] ([place]) Comment on above: Performed By: #### U A ####[address] [address] UA Blood Negative Normal Neg-Trace [facility] ([place]) Comment on above: Performed By: #### U A ####[address] [address] UA Leuk Est Negative Normal Negative [facility] ([place]) Comment on above: Performed By: #### U A ####[place] [address] UA Nitrite Negative Normal Negative [facility] ([place]) Comment on above: Performed By: #### U A ####[place] [address] UA pH 6.5 Normal 5.0 - 8.0 [facility] ([place]) Comment on above: Performed By: #### U A ####[place] [address] UA Protein Negative Normal Negative [facility] ([place]) Comment on above: Performed By: #### U A ####[place] [address] UA Spec Grav 1.025 Normal 1.006-1.029 [facility] ([place]) Comment on above: Performed By: #### U A ####[place] [address] UA Specimen Type Clean Catch Normal [facility] ([place]) Comment on above: Performed By: #### U A ####[place] [address] UA Urobilinogen 1.0 E.U./dL Normal 0.2-1.0 [facility] ([place]) Comment on above: Performed By: #### U A ####[place] [address] Urine, color Yellow Normal [facility] ([place]) Comment on above: Performed By: #### U A ####[place] [address] Urine, glucose Negative Normal Negative [facility] ([place]) Comment on above: Performed By: #### U A ####[place] [address] Urine, ketones presence Negative Normal Neg-Trace [facility] ([place]) Comment on above: Performed By: #### U A ####[place] [address] Urine, urobilinogen Negative Normal Neg-Trace Pending sale to [facility] ([place]) Comment on above: Performed By: #### U A ####[place] [id number] [place] [address] XR CHEST 2 VIEWSon 7 XR CHEST 2 VIEWS ORIGINALXR CHEST 2 V IEWS CLINICAL STATEMENT: Chest pain COMPARISON: None FINDINGS: A 9 mm calcification projects over the right mid thorax seen within the posterior soft tissues.Cardiomediastina l silhouette is within normal limits.No pleural effusion, pneumothorax, or consolidation. IMPRESSION: 1. No acute radiographic finding.2. Nonspecific 9 mm soft tissue calcification within the right posterior subcutaneous soft tissues. Interpreted By: Norma Roque MDPreliminary Report By: Norma Roque MDElectronically Signed By: Norma Roque MD Dictated Date: 10/20/2016 7:47:20 PM Prelim Date: 10/20/2016 7:47:20 PM Sign Date: 10/20/2016 7:48:26 PM Normal [facility] ([place]) No Panel Information Respiratory Panel (PCR) [facility] Work Phone: Vital Signs Date Time Vital Sign Value Performing Clinician Facility 08-12-2024 14:19-0400 Diastolic blood pressure 70 mm[Hg] Jordy Saucedo MD Work Phone: [facility] 08-12-2024 14:19-0400 Heart rate 66 /min Jordy Saucedo MD Work Phone: [facility] 08-12-2024 14:19-0400 SaO2% (BldA) [Mass fraction] 96 % Jordy Saucedo MD Work Phone: [facility] 08-12-2024 14:19-0400 Systolic blood pressure 120 mm[Hg] Jordy Saucedo MD Work Phone: [facility] 11-27-2023 15:46-0400 Body temperature 98.6 [degF] Bebeto Ballesteros APRN.CEMENT 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 Work Phone: [facility] 11-27-2023 15:46-0400 Diastolic blood pressure 88 mm[Hg] Bebeto Ballesteros APRN.CEMENT 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 Work Phone: [facility] 11-27-2023 15:46-0400 Heart rate 68 /min Bebeto Ballesteros TOBACCO DRUMMER.CEMENT 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 Work Phone: [facility] 11-27-2023 15:46-0400 Respiratory rate 20 /min Bebeto Ballesteros TOBACCO DRUMMER.CEMENT 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 Work Phone: [facility] 11-27-2023 15:46-0400 Systolic blood pressure 133 mm[Hg] Bebeto Ballesteros TOBACCO DRUMMER.CEMENT 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 Work Phone: [facility] 10-23-2023 10:46-0400 Diastolic blood pressure 72 mm[Hg] Jordy Saucedo MD Work Phone: [facility] 10-23-2023 10:46-0400 Systolic blood pressure 128 mm[Hg] Jordy Saucedo MD Work Phone: [facility] 10-23-2023 10:01-0400 Body height 180.3 cm Jordy Saucedo MD Work Phone: [facility] 10-23-2023 10:01-0400 Body mass index (BMI) [Ratio] 29.3 kg/m2 Jordy Saucedo MD Work Phone: [facility] 10-23-2023 10:01-0400 Body weight 95.3 kg Jordy Saucedo MD Work Phone: [facility] 10-23-2023 10:01-0400 Heart rate 58 /min Jordy Saucedo MD Work Phone: [facility] 10-23-2023 10:01-0400 SaO2% (BldA) [Mass fraction] 97 % Jordy Saucedo MD Work Phone: [facility] 09-25-2023 13:59-0400 Body height 180.3 cm Sincere Castano MD Work Phone: [facility] 09-25-2023 13:59-0400 Body mass index (BMI) [Ratio] 30.68 kg/m2 Sincere Castano MD Work Phone: [facility] 09-25-2023 13:59-0400 Body weight 99.79 kg Sincere Castano MD Work Phone: [facility] 09-25-2023 13:59-0400 Diastolic blood pressure 81 mm[Hg] Sincere Castano MD Work Phone: [facility] 09-25-2023 13:59-0400 Heart rate 58 /min Sincere Castano MD Work Phone: [facility] 09-25-2023 13:59-0400 SaO2% (BldA) [Mass fraction] 97 % Sincere Castano MD Work Phone: [facility] 09-25-2023 13:59-0400 Systolic blood pressure 134 mm[Hg] Sincere Castano MD Work Phone: [facility] 07-31-2023 13:11-0400 Body height 180.3 cm Jordy Saucedo MD Work Phone: [facility] 07-31-2023 13:11-0400 Body temperature 98.29 [degF] Jordy Saucedo MD Work Phone: [facility] 07-31-2023 13:11-0400 Diastolic blood pressure 76 mm[Hg] Jordy Saucedo MD Work Phone: [facility] 07-31-2023 13:11-0400 Heart rate 59 /min Jordy Saucedo MD Work Phone: [facility] 07-31-2023 13:11-0400 Respiratory rate 14 /min Jordy Saucedo MD Work Phone: [facility] 07-31-2023 13:11-0400 SaO2% (BldA) [Mass fraction] 99 % Jordy Saucedo MD Work Phone: [facility] 07-31-2023 13:11-0400 Systolic blood pressure 122 mm[Hg] Jordy Saucedo MD Work Phone: [facility] 02-28-2023 15:03-0500 Body temperature 97.9 [degF] Dr. Jordy Saucedo Work Phone: 6(777)148-942823 [place] [address] 02-28-2023 15:03-0500 Diastolic blood pressure 83 mm[Hg] Dr. Jordy Saucedo Work Phone: 1(509)405-731684 [place] [address] 02-28-2023 15:03-0500 Heart rate 75 /min Dr. Jordy Saucedo Work Phone: 7(546)486-964084 [place] [address] 02-28-2023 15:03-0500 Respiratory rate 18 /min Dr. Jordy Saucedo Work Phone: 9(727)037-791284 [place] [address] 02-28-2023 15:03-0500 SaO2% (BldA) [Mass fraction] 97 % Dr. Jordy Saucedo Work Phone: 8(369)730-210784 [place] [address] 02-28-2023 15:03-0500 Systolic blood pressure 135 mm[Hg] Dr. Jordy Saucedo Work Phone: 0(849)148-790284 [place] [address] 02-20-2023 16:01-0500 Body height 182.[address] Jordy Saucedo Work Phone: 6(823)701-961084 [place] [address] 02-20-2023 16:01-0500 Body weight 92.[address] Jordy Saucedo Work Phone: 0(708)381-819984 [place] [address] 02-20-2023 14:26-0500 Body mass index (BMI) [Ratio] 27.5 kg/m2 Dr. Jordy Saucedo Work Phone: 9(953)622-914584 [place] [address] 02-20-2023 10:33-0500 Body temperature 97.5 [degF] Dr. Jordy Saucedo Work Phone: 1(939)991-311984 [place] [address] 02-20-2023 10:33-0500 Diastolic blood pressure 71 mm[Hg] Dr. Jordy Saucedo Work Phone: 0(729)751-331884 [place] [address] 02-20-2023 10:33-0500 Heart rate 63 /min Dr. Jordy Saucedo Work Phone: 5(996)112-315784 [place] [address] 02-20-2023 10:33-0500 Respiratory rate 16 /min Dr. Jordy Saucedo Work Phone: [facility] 02-20-2023 10:33-0500 SaO2% (BldA) [Mass fraction] 97 % Dr. Jordy Saucedo Work Phone: [facility] 02-20-2023 10:33-0500 Systolic blood pressure 158 mm[Hg] Dr. Jordy Saucedo Work Phone: [facility] 02-20-2023 08:58-0500 Body height 182.[address] Jordy Saucedo Work Phone: [facility] 02-20-2023 08:58-0500 Body mass index (BMI) [Ratio] 31.1 kg/m2 Dr. Jordy Saucedo Work Phone: [facility] 02-20-2023 08:58-0500 Body weight 104.[address] Jordy Saucedo Work Phone: [facility] 02-13-2023 10:26-0500 Body temperature 98.49 [degF] Jordy Saucedo MD Work Phone: [facility] 02-13-2023 10:26-0500 Body weight 102.78 kg Jordy Saucedo MD Work Phone: [facility] 02-13-2023 10:26-0500 Diastolic blood pressure 76 mm[Hg] Jordy Saucedo MD Work Phone: [facility] 02-13-2023 10:26-0500 Heart rate 62 /min Jordy Saucedo MD Work Phone: [facility] 02-13-2023 10:26-0500 Respiratory rate 16 /min Jordy Saucedo MD Work Phone: [facility] 02-13-2023 10:26-0500 SaO2% (BldA) [Mass fraction] 96 % Jordy Saucedo MD Work Phone: [facility] 02-13-2023 10:26-0500 Systolic blood pressure 136 mm[Hg] Jordy Saucedo MD Work Phone: [facility] 01-23-2022 16:16-0500 Body temperature 98 [degF] Dr. Jordy Saucedo Work Phone: [facility] Work Phone: 01-23-2022 16:16-0500 Diastolic blood pressure 77 mm[Hg] Dr. Jordy Saucedo Work Phone: [facility] Work Phone: 01-23-2022 16:16-0500 Heart rate 70 /min Dr. Jordy Saucedo Work Phone: [facility] Work Phone: 01-23-2022 16:16-0500 Respiratory rate 18 /min Dr. Jordy Saucedo Work Phone: [facility] Work Phone: 01-23-2022 16:16-0500 SaO2% (BldA) [Mass fraction] 98 % Dr. Jordy Saucedo Work Phone: [facility] Work Phone: 01-23-2022 16:16-0500 Systolic blood pressure 147 mm[Hg] Dr. Jordy Saucedo Work Phone: [facility] Work Phone: 01-21-2022 13:00-0500 Body mass index (BMI) [Ratio] 30.8 kg/m2 Dr. Jordy Saucedo Work Phone: [facility] Work Phone: 01-21-2022 13:00-0500 Body weight 103.[address] Jordy Saucedo Work Phone: [facility] Work Phone: 01-21-2022 12:47-0500 Body temperature 97.8 [degF] Dr. Jordy Saucedo Work Phone: [facility] Work Phone: 01-21-2022 12:47-0500 Diastolic blood pressure 89 mm[Hg] Dr. Jordy Saucedo Work Phone: [facility] Work Phone: 01-21-2022 12:47-0500 Heart rate 71 /min Dr. Jordy Saucedo Work Phone: [facility] Work Phone: 01-21-2022 12:47-0500 Respiratory rate 16 /min Dr. Jordy Saucedo Work Phone: [facility] Work Phone: 01-21-2022 12:47-0500 SaO2% (BldA) [Mass fraction] 95 % Dr. Jordy Saucedo Work Phone: [facility] Work Phone: 01-21-2022 12:47-0500 Systolic blood pressure 159 mm[Hg] Dr. Jordy Saucedo Work Phone: [facility] Work Phone: 01-21-2022 09:00-0500 Body height 182.[address] Jordy Saucedo Work Phone: [facility] Work Phone: 01-21-2022 09:00-0500 Body mass index (BMI) [Ratio] 29.2 kg/m2 Dr. Jordy Saucedo Work Phone: [facility] Work Phone: 01-21-2022 09:00-0500 Body weight 97.[address] Jordy Saucedo Work Phone: [facility] Work Phone: 12-24-2021 11:31-0400 Body weight 104.78 kg Edith Older TO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 Work Phone: [facility] 12-24-2021 11:31-0400 Diastolic blood pressure 82 mm[Hg] Edith Older TO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 Work Phone: [facility] 12-24-2021 11:31-0400 Heart rate 64 /min Edith Older TO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 Work Phone: [facility] 12-24-2021 11:31-0400 Respiratory rate 14 /min Edith Older TO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 Work Phone: [facility] 12-24-2021 11:31-0400 Systolic blood pressure 154 mm[Hg] Edith Older TO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 Work Phone: [facility] 08-13-2021 10:06-0400 Diastolic blood pressure 78 mm[Hg] Jordy Saucedo MD Work Phone: [facility] 08-13-2021 10:06-0400 Heart rate 63 /min Jordy Saucedo MD Work Phone: [facility] 08-13-2021 10:06-0400 Systolic blood pressure 142 mm[Hg] Jordy Saucedo MD Work Phone: [facility] 08-13-2021 09:57-0400 Body height 180.3 cm Jordy Saucedo MD Work Phone: [facility] 08-13-2021 09:57-0400 Body temperature 96.8 [degF] Jordy Saucedo MD Work Phone: [facility] 08-13-2021 09:57-0400 Body weight 102.06 kg Jordy Saucedo MD Work Phone: [facility] 08-13-2021 09:57-0400 Respiratory rate 16 /min Jordy Saucedo MD Work Phone: [facility] Encounters Encounter Date Encounter Type Care Provider Facility Start: 09-27-2024 End: 09-27-2024 Telephone encounter Jordy Saucedo MD Work Phone: [facility] [place] Comment on above: Anticoagulation Start: 09-27-2024 End: 09-27-[address] Jordy Saucedo MD Work Phone: -Laboratory Start: 09-27-2024 End: 09-27-[address] Jordy Saucedo MD -Laboratory Work Phone: Start: 09-27-2024 End: 09-27-2024 ambulatory Jordy Saucedo Facility:[facility] Start: 09-19-2024 End: 09-19-2024 Telephone encounter Jordy Saucedo MD Work Phone: [facility] [place] Comment on above: Patient Question (Ma il lab results) Start: 08-30-2024 End: 08-30-2024 Telephone encounter Jordy Saucedo MD Work Phone: [facility] [place] Comment on above: Faxed to [facility] Lab Anticoagulation Start: 08-30-2024 End: 08-30-[address] Jordy Saucedo MD Work Phone: -Laboratory Start: 08-30-2024 End: 08-30-[address] Jordy Saucedo MD -Laboratory Work Phone: Start: 08-30-2024 End: 08-30-2024 ambulatory Jordy Saucedo Facility:[facility] Start: 08-15-2024 End: 08-15-2024 Follow-up encounter Jordy Saucedo MD Work Phone: [facility] [place] Start: 08-12-2024 End: 08-12-2024 ambulatory JORDY SAUCEDO Facility:[facility] Start: 08-12-2024 End: 08-12-2024 ambulatory JORDY SAUCEDO Facility:[facility] Start: 08-12-2024 End: 08-12-2024 Patient encounter procedure Jordy Saucedo MD Work Phone: [facility] [place] Comment on above: Medicare annual well ness visit, subsequent (Primary Dx); PURE HYPERCHOLESTEROLEM; Essential hypertension; Encounter for screening examination for other mental health and behavioral disorders; Screening for depression; Parkinsonism, unspecified Parkinsonism type (HCC); Atherosclerosis of [place] coronary artery of [place] heart without angina pectoris; Impaired fasting glucose; 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 Jordy Saucedo MD Work Phone: [facility] Work Phone: Start: 08-05-2024 End: 08-05-[address] Devin Albrecht MD -[place] [facility] Work Phone: Start: 08-02-2024 End: 08-02-2024 Telephone encounter Jordy aSucedo MD Work Phone: [facility] [place] Comment on above: Anticoagulation Start: 08-02-2024 End: 08-02-[address] Jordy Saucedo MD Work Phone: [facility] Work Phone: Start: 08-02-2024 End: 08-02-[address] Jordy Saucedo MD -Laboratory Work Phone: Start: 08-02-2024 End: 08-02-2024 ambulatory Jordy Saucedo Facility:[facility] Start: 07-22-2024 End: 07-25-2024 Refill Jordy Saucedo MD Work Phone: [facility] [place] Comment on above: Refill Request Start: 07-04-2024 End: 07-04-2024 Telephone encounter Jordy Saucedo MD Work Phone: [facility] [place] Comment on above: Anticoagulation Start: 07-04-2024 End: 07-04-[address] Jordy Saucedo MD -Laboratory Work Phone: Start: 07-04-2024 End: 07-04-2024 ambulatory Jordy Saucedo Facility:[facility] Start: 06-20-2024 End: 06-20-2024 Telephone encounter Jordy Saucedo MD Work Phone: [facility] [place] Comment on above: Anticoagulation Start: 06-20-2024 End: 06-20-[address] Jordy Saucedo MD Work Phone: [facility] Work Phone: Start: 06-20-2024 End: 06-20-[address] Jordy Saucedo MD -Laboratory Work Phone: Start: 06-20-2024 End: 06-20-2024 ambulatory Jordy Saucedo Facility:[facility] Start: 05-27-2024 End: 05-27-2024 Telephone encounter Jordy Saucedo MD Work Phone: [facility] [place] Comment on above: Lab Orders Start: 05-23-2024 End: 05-23-2024 Telephone encounter Jordy Saucedo MD Work Phone: [facility] [place] Comment on above: Anticoagulation Start: 05-23-2024 End: 05-23-[address] Jordy Saucedo MD Work Phone: [facility] Work Phone: Start: 05-23-2024 End: 05-23-[address] Jordy Saucedo MD -Laboratory Work Phone: Start: 05-23-2024 End: 05-23-2024 ambulatory Jordy Saucedo Facility:[facility] Start: 05-06-2024 End: 05-06-2024 ambulatory Devin Albrecht Facility:[facility] Start: 05-06-2024 End: 05-06-2024 Non-patient / Non-visit Dr. Devin Albrecht MD -[place] [facility] Work Phone: Start: 05-06-2024 End: 05-06-[address] Devin Albrecht MD -[facility] Work Phone: Start: 04-25-2024 End: 04-25-2024 Telephone encounter Jordy Saucedo MD Work Phone: [facility] Comment on above: Anticoagulation Start: 04-25-2024 End: 04-25-[address] Jordy Saucedo MD -Laboratory Work Phone: Start: 04-25-2024 End: 04-25-2024 ambulatory Jordy Saucedo Facility:[facility] Start: 04-15-2024 End: 04-15-2024 Telephone encounter Jordy Saucedo MD Work Phone: [facility] [place] Comment on above: Forms Start: 04-04-2024 End: 04-06-2024 Telephone encounter Jordy Saucedo MD Work Phone: [facility] [place] Comment on above: Anticoagulation Start: 04-04-2024 End: 04-04-[address] Jordy Saucedo MD -Laboratory Work Phone: Start: 04-04-2024 End: 04-04-2024 ambulatory Jordy Saucedo Facility:[facility] Start: 03-14-2024 End: 03-14-2024 Refill Jordy Saucedo MD Work Phone: [facility] [place] Comment on above: Refill Request Anticoagulation Start: 03-14-2024 End: 03-14-[address] Jordy Saucedo MD -Laboratory Work Phone: Start: 03-14-2024 End: 03-14-2024 ambulatory Jordy Saucedo Facility:[facility] Start: 02-29-2024 End: 02-29-2024 Telephone encounter Edith Power APRN.CNP Work Phone: Internal [facility] Comment on above: Anticoagulation Start: 02-29-2024 End: 02-29-[address] Jordy Saucedo MD -Laboratory Work Phone: Start: 02-29-2024 End: 02-29-2024 ambulatory Jordy Saucedo Facility:[facility] Start: 02-05-2024 End: 02-05-2024 ambulatory Jordy Saucedo Facility:[facility] Start: 02-05-2024 End: 02-05-[address] Devin Albrecht MD -[facility] Work Phone: Start: 02-01-2024 End: 02-01-2024 Telephone encounter Jordy Saucedo MD Work Phone: [facility] [place] Comment on above: Anticoagulation Start: 02-01-2024 End: 02-01-[address] Jordy Saucedo MD -Laboratory Work Phone: Start: 02-01-2024 End: 02-01-2024 ambulatory Jordy Saucedo Facility:[facility] Start: 01-05-2024 End: 01-08-2024 Telephone encounter Jordy Saucedo MD Work Phone: [facility] [place] Comment on above: Anticoagulation Start: 01-05-2024 End: 01-05-2024 ambulatory Jordy Saucedo Facility:[facility] Start: 01-01-2024 End: 01-01-2024 Telephone encounter Jordy Saucedo MD Work Phone: [facility] [place] Comment on above: [facility] critical lab ana ue Start: 01-01-2024 End: 01-01-2024 ambulatory Jordy Saucedo Facility:[facility] Start: 12-10-2023 End: 12-10-2023 Telephone encounter Jordy Saucedo MD Work Phone: [facility] [place] Comment on above: Orders Start: 12-04-2023 End: 12-04-2023 Telephone encounter Jordy Saucedo MD Work Phone: [facility] [place] Comment on above: Anticoagulation INR order Start: 12-04-2023 End: 12-04-2023 ambulatory Jordy Saucedo Facility:[facility] Start: 12-03-2023 End: 12-03-2023 Telephone encounter Jordy Saucedo MD Work Phone: [facility] [place] Comment on above: Orders Start: 12-02-2023 End: 12-02-2023 Telephone encounter Jordy Saucedo MD Work Phone: [facility] [place] Comment on above: Question Start: 11-27-2023 End: 11-27-2023 ambulatory [facility] Facility:[facility] Start: 11-27-2023 End: 11-27-2023 Office outpatient visit 15 minutes Bebeto Ballesteros 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 Work Phone: [facility] [place] Comment on above: Rash and nonspecific skin eruption (Primary Dx) Start: 11-06-2023 End: 11-06-2023 ambulatory Wilton Ambrocio Facility:[facility] Start: 10-29-2023 End: 10-30-2023 Telephone encounter Jordy Saucedo MD Work Phone: [facility] [place] Comment on above: Anticoagulation Start: 10-29-2023 End: 10-29-2023 ambulatory Jordy Saucedo Facility:[facility] Start: 10-23-2023 End: 10-23-2023 ambulatory JORDY SAUCEDO Facility:[facility] Start: 10-23-2023 End: 10-23-2023 Office outpatient visit 25 minutes Jordy Saucedo MD Work Phone: [facility] [place] Comment on above: Essential hypertensi on (Primary Dx); Impaired fasting glucose; Atherosclerosis of [place] coronary artery of [place] heart without angina pectoris; Lower urinary tract symptoms (LUTS); Nocturia; PURE HYPERCHOLESTEROLEM Start: 10-01-2023 Telephone encounter Jordy manuel MD Work Phone: [facility] [place] Comment on above: Anticoagulation Start: 09-28-2023 Telephone encounter Sincere marina MD Work Phone: Neurology Comment on above: Release Of Medical R ecords Start: 09-25-2023 End: 09-25-2023 Patient encounter procedure Sincere Castano MD Work Phone: Neurology Comment on above: Parkinsonism, unspec ified Parkinsonism type (HCC) (Primary Dx); Multifactorial gait disorder; Cerebral ventriculomegaly; Dysarthria Start: 09-17-2023 Telephone encounter Jordy manuel MD Work Phone: [facility] [place] Comment on above: Anticoagulation Start: 09-15-2023 Telephone encounter Joryd manuel MD Work Phone: [facility] [place] Comment on above: Anticoagulation Start: 08-18-2023 Telephone encounter Jordy manuel MD Work Phone: [facility] [place] Comment on above: Anticoagulation Start: 08-10-2023 Telephone encounter Jordy manuel MD Work Phone: [facility] [place] Comment on above: Letter Start: 08-04-2023 Telephone encounter Jordy manuel MD Work Phone: [facility] [place] Comment on above: Anticoagulation Start: 07-31-2023 End: 07-31-2023 Patient encounter procedure Jordy Saucedo MD Work Phone: [facility] [place] Comment on above: Atherosclerosis of n ative coronary artery of [place] heart without angina pectoris (Primary Dx); Nocturia; Parkinsonism, unspecified Parkinsonism type (HCC); Essential hypertension; Abnormality of gait; LV (left ventricular) mural thrombus following ID (HCC); Cerebral ventriculomegaly; Need for COVID-19 vaccine; 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 ; Ischemic cardiomyopathy Start: 07-27-2023 Refill Jordy vu MD Work Phone: [facility] [place] Comment on above: Refill Request Start: 05-13-2023 Telephone encounter Jordy manuel MD Work Phone: [facility] [place] Comment on above: Patient Request Start: 05-07-2023 Telephone encounter Pharmacist [facility] Comment on above: Patient Update (Home INR meter enrollment) Start: 04-28-2023 Telephone encounter Jordy manuel MD Work Phone: [facility] [place] Comment on above: Patient Update Start: 03-04-2023 Telephone encounter Pharmacist [facility] Comment on above: Patient Update Start: 02-28-2023 Non-patient / Non-visit Dr. Ruba Saucedo Work Phone: [facility] Work Phone: Start: 02-27-2023 Non-patient / Non-visit Dr. Ruba Saucedo Work Phone: [facility] Work Phone: Start: 02-26-2023 Non-patient / Non-visit Dr. Ruba Saucedo Work Phone: [facility] Work Phone: Start: 02-25-2023 Non-patient / Non-visit Dr. Ruba Saucedo Work Phone: [facility] Work Phone: Start: 02-24-2023 Non-patient / Non-visit Dr. Ruba Saucedo Work Phone: [facility] Work Phone: Start: 02-23-2023 Non-patient / Non-visit Dr. Ruba Saucedo Work Phone: [facility] Work Phone: Start: 02-22-2023 Non-patient / Non-visit Dr. Ruba Saucedo Work Phone: [facility] Work Phone: Start: 02-21-2023 End: 02-28-2023 Evaluation and management of inpatient Dr. Jordy Saucedo [facility] Work Phone: Start: 02-21-2023 Non-patient / Non-visit Dr. Ruba Saucedo Work Phone: [facility] Work Phone: Start: 02-21-2023 Non-patient / Non-visit Dr. Ruba Saucedo Work Phone: [facility] Start: 02-20-2023 Non-patient / Non-visit Dr. Ruba Saucedo Work Phone: [facility] Start: 02-20-2023 Telephone encounter Jordy manuel MD Work Phone: [facility] [place] Comment on above: Results Start: 02-20-2023 Evaluation and manag ement of inpatient Dr. Jordy Saucedo Work Phone: [facility] Work Phone: Start: 02-20-[address] Harsha Saucedo Work Phone: [facility] Work Phone: Start: 02-16-2023 Telephone encounter [facility] Comment on above: Anticoagulation Tele phone Fu (Lab INR Result ) Start: 02-13-2023 End: 02-13-2023 Patient encounter procedure Jordy Saucedo MD Work Phone: [facility] [place] Comment on above: Abnormality of gait (Primary Dx); Need for influenza vaccination; Need for COVID-19 vaccine; Essential hypertension; Atherosclerosis of [place] coronary artery of [place] heart without angina pectoris; Ischemic cardiomyopathy; Dizziness; Impaired fasting glucose; PURE HYPERCHOLESTEROLEM Start: 01-13-2023 Refill Jordy vu MD Work Phone: [facility] Comment on above: Refill Request Start: 12-26-2022 Telephone encounter Jeanette Cross [facility] Comment on above: Anticoagulation Tele phone Fu (INR Lab Result) Start: 11-28-2022 Telephone encounter Jeanette Cross RPh [facility] Comment on above: Anticoagulation Tele phone Fu (INR Lab Result) Start: 11-14-2022 Telephone encounter Jeanette Cross RPh [facility] Comment on above: Anticoagulation Tele phone Fu (INR Lab Result) Start: 10-24-2022 End: 12-19-[address] Jordy Saucedo Work Phone: [facility] Work Phone: Start: 10-24-2022 Telephone encounter Jeanette Cross RPh [facility] Comment on above: Anticoagulation Tele phone Fu (INR Lab Result) Start: 09-19-2022 Telephone encounter Jeanette Cross R[facility] Comment on above: Anticoagulation Tele phone Fu (INR Lab Result) Start: 08-20-2022 ambulatory Tamia ramirez [employer] [facility] [place] Start: 07-11-2022 Telephone encounter Jeanette Ezra RPh [facility] Comment on above: Anticoagulation Tele phone Fu (INR Lab Result) Start: 06-13-2022 Telephone encounter Jeana Arriaga RPh [facility] Comment on above: Anticoagulation Tele phone Fu (Lab INR result) Start: 05-09-2022 Telephone encounter Sulma almanza [facility] Comment on above: Anticoagulation Tele phone Fu (Lab INR) Start: 05-06-2022 Refill Jordy vu MD Work Phone: [facility] [place] Comment on above: Refill Request Start: 04-21-2022 Telephone encounter Jordy manuel MD Work Phone: [facility] [place] Comment on above: Insurance Authorizat ion Start: 04-11-2022 Telephone encounter Jeanette Ezra RPh [facility] Comment on above: Anticoagulation Tele phone Fu (INR Lab Result) Erroneous encounter- disregard Start: 03-18-2022 Telephone encounter Jeana Arriaga RP [facility] Comment on above: Anticoagulation Tele phone Fu Start: 03-04-2022 Telephone encounter Pharmacist [facility] Comment on above: Anticoagulation Start: 02-27-2022 Telephone encounter Jordy manuel MD Work Phone: [facility] [place] Comment on above: Home Health Start: 02-26-2022 Telephone encounter Jordy manuel MD Work Phone: [facility] [place] Comment on above: Orders Start: 01-23-2022 Non-patient / Non-visit Dr. Ruba Saucedo Work Phone: [facility] Start: 01-22-2022 Non-patient / Non-visit Dr. Ruba Saucedo Work Phone: [facility] Start: 01-21-2022 Non-patient / Non-visit Dr. Ruba Saucedo Work Phone: [facility] Start: 01-21-2022 End: 01-23-2022 Evaluation and management of inpatient Dr. Jordy Saucedo Work Phone: [facility] Start: 01-21-2022 End: 01-23-[address] Jordy Saucedo Work Phone: [facility] Work Phone: Start: 01-03-2022 End: 01-03-[address] 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 Jordy Saucedo Work Phone: [facility] Start: 08-30-2021 Telephone encounter Jordy manuel MD Work Phone: [facility] [place] Comment on above: Opened In Error Anticoagulation Tele phone Fu (INR Lab Result) Start: 08-27-2021 Telephone encounter [facility]ana Arriaga [facility] Comment on above: Anticoagulation Tele phone Fu (Lab INR) Start: 08-13-2021 End: 08-13-2021 Patient encounter procedure Jordy Saucedo MD Work Phone: [facility] [place] Comment on above: Routine general medi serge examination at a health care facility (Primary Dx); Cerebral ventriculomegaly; Abnormality of gait; Dizziness; Essential hypertension; Impaired fasting glucose Start: 08-13-2021 End: 08-13-2021 Patient encounter status Jordy Saucedo MD Work Phone: [facility] [place] Start: 07-19-2021 Telephone encounter Jeanette Munguia [facility] Comment on above: Anticoagulation Tele phone Fu (INR Lab Result) Start: 06-20-2021 Telephone encounter Lise Sherman [facility] Comment on above: Anticoagulation Tele phone Fu Start: 04-30-2018 End: 04-30-2018 Patient encounter procedure SABRINA COXJULIENNEKYREE Facility:[facility] Start: 09-24-2017 Patient encounter procedure DOMINGUEZ MARIA ESTHER Facility:[facility] Start: 10-28-2016 End: 11-06-2016 Ambulatory ELLA LEVIN Facility:R Start: 10-20-2016 End: 10-26-2016 Evaluation and management of inpatient DAO PARRY Facility:A Procedures Date Procedure Procedure Detail Performing Clinician Start: 09-27-2024 Prothrombin time [facility] Start: 08-30-2024 Prothrombin time [facility] Start: 08-12-2024 Adult depression screening assessment Jordy Saucedo MD Work Phone: Start: 07-04-2024 Prothrombin time [facility] Start: 06-20-2024 Prothrombin time [facility] Start: 05-23-2024 Prothrombin time [facility] Start: 04-25-2024 Prothrombin time [facility] Start: 04-04-2024 Prothrombin time [facility] Start: 03-14-2024 Prothrombin time [facility] Start: 02-29-2024 Prothrombin time [facility] Start: 02-01-2024 Prothrombin time [facility] Start: 01-05-2024 Prothrombin time [facility] Start: 12-04-2023 Prothrombin time [facility] Start: 10-01-2023 Prothrombin time [facility] Start: 09-17-2023 Prothrombin time [facility] Start: 09-15-2023 Prothrombin time [facility] Start: 08-18-2023 Prothrombin time [facility] Start: 07-31-2023 PFIZER-BIONTECH COVI D-19 VACCINE ( SEASON) AGE 12+ YR Jordy Saucedo MD Work Phone: Start: 02-28-[address] Jordy Saucedo Work Phone: Start: 02-23-2023 MRI of lumbar spine Dr. Jordy Saucedo Work Phone: Start: 02-20-2023 CT of lumbar spine Dr. Jordy Saucedo Work Phone: Start: 02-13-2023 INFLUENZA VACCINE, P RSV FREE, AGE 65+ YR, HIGH DOSE, QUADRIVALENT (FLUZONE HIGH-DOSE) Jordy Saucedo MD Work Phone: Start: 02-13-2023 PFIZER-BIONTECH COVI D-19 VACCINE ( SEASON) AGE 12+ YR Jordy Saucedo MD Work Phone: Start: 02-13-2023 Adult depression screening assessment Jordy Saucedo MD Work Phone: Start: 03-04-2022 Prothrombin time [facility] Start: 01-21-2022 Computed tomography of thoracic spine without contrast Dr. Jordy Saucedo Work Phone: Start: 01-21-2022 CT of head without contrast Dr. 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 Jordy Saucedo Work Phone: Comment on above: CABG x2- [place] to LAD , SVG to OM 10/31/2016 @ [place] History of appendectomy History of append ectomy Dr. Jordy Saucedo Work Phone: History of tonsillectomy History of tonsillectomy Dr. Jordy Saucedo Work Phone: Respiratory Panel (PCR) Dr. Jordy Saucedo Work Phone: Plan of Treatment Date Care Activity Detail Author Start: 07-29-2030 Urine microalbumin profile [facility] Start: 08-13-2027 Diabetes Screening Diabetes Screening [facility] Start: 07-30-2026 Diabetes Screening Diabetes Screening [facility] Start: 04-25-2026 LIPID SCREEN LIPID SCREEN [facility] Start: 02-13-2026 Diabetes Screening Diabetes Screening [facility] Start: 08-12-2025 Annual PCP Team Chronic Disease Visit Annual PCP Team Chronic Disease Visit [facility] Start: 08-12-2025 Anxiety Screening Anxiety Screening [facility] Start: 08-12-2025 BP Controlled (<130/80) BP Controlled (<130/80) [facility] Start: 08-12-2025 Covid-19 Vaccine ( season) Covid-19 Vaccine () [facility] Comment on above: Postponed from 11/08/2023 (Declined at t his time) Start: 08-12-2025 Depression Screening Depression Screening [facility] Start: 08-12-2025 Hepatitis B surface antibody level LDL Cholesterol [facility] Start: 08-12-2025 Medicare Annual Wellness Visit Medicare Annual Wellness Visit [facility] Start: 01-17-2025 Colonoscopy COLONOSCOPY [facility] Start: 01-17-2025 COLORECTAL CANCER SCREENING COLORECTAL CANCER SCREENING [facility] Start: 11-07-2024 Influenza vaccination [facility] Start: 10-22-2024 Annual PCP Team Chronic Disease Visit Annual PCP Team Chronic Disease Visit [facility] Start: 10-22-2024 BP Controlled (<130/80) BP Controlled (<130/80) [facility] in Start: 08-12-2024 End: 09-05-2025 25-hydroxyvitamin D3 [Mass/volume] in Serum or Plasma [facility] Comment on above: Expected: 08/12/2024, Expires: Start: 08-12-2024 End: 11-11-2024 CBC panel - Blood by Automated count [facility] Work Phone: Comment on above: Expected: 08/12/2024, Expires: Start: 08-12-2024 End: 11-11-2024 Comprehensive metabolic 2000 panel - Serum or Plasma [facility] Comment on above: Expected: 08/12/2024, Expires: Start: 08-12-2024 End: 11-11-2024 Hemoglobin A1c in Blood [facility] Comment on above: Expected: 08/12/2024, Expires: Start: 08-12-2024 End: 11-11-2024 LIPID PANEL, NONFASTING [facility] Comment on above: Expected: 08/12/2024, Expires: Start: 08-12-2024 End: 08-12-2024 Patient encounter procedure 08/12/2024 11:40 AM EDT Office Visit [facility] [place] [address] [place] [address] Edith Power, 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 [address] [place] [address] follow up [facility] [place] Comment on above: follow up Start: 07-30-2024 Annual PCP Team Chronic Disease Visit Annual PCP Team Chronic Disease Visit [facility] Start: 07-30-2024 BP Controlled (<130/80) BP Controlled (<130/80) [facility] Start: 07-19-2024 DIABETES SCREEN DIABETES SCREEN [facility] Start: 07-19-2024 Diabetes Screening Diabetes Screening [facility] Start: 04-25-2024 DIABETES SCREEN DIABETES SCREEN [facility] Start: 04-24-2024 End: 07-24-2024 CBC panel - Blood by Automated count COMPLETE BLOOD COUNT Lab Routine Essential hypertension Expected: 04/24/2024, Expires: 07/24/2024 [facility] Work Phone: Comment on above: Expected: 04/24/2024, Expires: Start: 04-24-2024 End: 07-24-2024 Comprehensive metabolic 2000 panel - Serum or Plasma COMPREHENSIVE METABOLIC PANEL Lab Routine PURE HYPERCHOLESTEROLEM Expected: 04/24/2024, Expires: 07/24/2024 [facility] Comment on above: Expected: 04/24/2024, Expires: Start: 04-24-2024 End: 07-24-2024 Lipid 1996 panel - Serum or Plasma LIPID PANEL BASIC Lab Routine PURE HYPERCHOLESTEROLEM Expected: 04/24/2024, Expires: 07/24/2024 [facility] Comment on above: Expected: 04/24/2024, Expires: Start: 03-09-2024 Advance Directive Discussion Advance Directive Discussion [facility] Start: 02-14-2024 Annual PCP Team Chronic Disease Visit Annual PCP Team Chronic Disease Visit [facility] Start: 02-14-2024 Anxiety Screening Anxiety Screening [facility] Start: 02-14-2024 Depression Screening Depression Screening [facility] Start: 02-14-2024 Hepatitis B surface antibody level LDL Cholesterol [facility] Start: 01-29-2024 End: 01-29-2024 Patient encounter procedure 01/29/2024 4:00 PM EST Office Visit Neurology [address] [facility] [id number] Sincere Castano MD [address] [facility] [address] [place] [id number] 4 mo Neurology Comment on above: 4 mo Start: 11-08-2023 Covid-19 Vaccine ( season) Covid-19 Vaccine () [facility] Start: 11-08-2023 Influenza vaccination Influenza Vaccine (#1) [facility] Start: 10-23-2023 End: 10-23-2023 Patient encounter procedure 10/23/2023 10:20 AM EDT Office Visit [facility] [place] [address] [place] [id number] Jordy Saucedo MD [address] [place] [address] 2 month follow up- labs [facility] [place] Comment on above: 2 month follow up- labs Start: 10-16-2023 End: 10-16-2023 Patient encounter procedure 10/16/2023 11:20 AM EDT Office Visit [facility] [place] [address] [place] [address] Jordy Saucedo MD [address] [place] [address] 2 month follow up- labs [facility] [place] Comment on above: 2 month follow up- labs Start: 09-25-2023 End: 09-25-2023 Patient encounter procedure 09/25/2023 2:00 PM EDT Office Visit Neurology [address] [facility] [phone] Sincere Castano MD [address] [facility] [address] Parkinsonism, unspecified Parkinsonism type (HCC) [G20.C] Neurology Comment on above: Parkinsonism, unspecified Parkinsonism t ype (HCC) [G20.C] Start: 07-31-2023 End: 07-31-2023 Patient encounter procedure 07/31/2023 1:20 PM EDT Office Visit [facility] [place] [address] [facility] [place] [address] Jordy Saucedo MD [address] [place] [address] 6 mo follow up [facility] [place] Comment on above: 6 mo follow up Start: 06-15-2023 Covid-19 Vaccine () Covid-19 Vaccine () [facility] Start: 03-09-2023 Advance Directive Discussion Advance Directive Discussion [facility] Start: 03-09-2023 Behavioral Health Screening Behavioral Health Screening [facility] Start: 03-09-2023 Depression Assessment Depression Assessment [facility] Start: 02-28-2023 Patient discharge [facility] Start: 02-24-2023 Care planning and problem solving actions [facility] Start: 02-21-2023 Admission procedure [facility] Start: 02-20-2023 Care planning and problem solving actions [facility] Start: 02-20-2023 Following clinical pathway protocol [facility] Start: 02-20-2023 Ambulation without limitation [facility] Start: 02-20-2023 Assessment of risk of venous thromboembolism [facility] Start: 02-20-2023 Consultation [facility] Start: 02-20-2023 Insertion of catheter into peripheral vein [facility] Start: 02-20-2023 Providing care according to standard [facility] Start: 02-20-2023 Referral to occupational therapist [facility] Start: 02-20-2023 Referral to service [facility] Start: 02-20-2023 [facility] Start: 02-20-2023 Verification routine [facility] Start: 02-20-2023 Admission procedure [facility] Start: 02-20-2023 Hospital admission, emergency, from emergency room, medical nature [facility] Start: 02-20-2023 Consultation [facility] Start: 02-20-2023 Patient referral to dietitian [facility] Start: 02-13-2023 End: 05-15-2023 Thyrotropin [Units/volume] in Serum or Plasma [facility] Work Phone: Comment on above: Expected: 02/13/2023, Expires: Start: 12-24-2022 ANNUAL PCP TEAM CHRONIC DISEASE VISIT ANNUAL PCP TEAM CHRONIC DISEASE VISIT [facility] Start: 12-24-2022 COVID-19 VACCINE (4 - Booster for Pfizer series) COVID-19 VACCINE (4 - Booster for Pfizer series) [facility] Comment on above: Postponed from 03/27/2021 (Declined at t his time) Start: 12-24-2022 COVID-19 VACCINE (4 - Pfizer series) COVID-19 VACCINE (4 - Pfizer series) [facility] Comment on above: Postponed from 03/27/2021 (Declined at t his time) Start: 11-07-2022 Covid-19 Vaccine ( - 2023-24 season) Covid-19 Vaccine ( season) [facility] Start: 11-07-2022 Influenza vaccination [facility] Start: 08-13-2022 ANNUAL PCP TEAM CHRONIC DISEASE VISIT ANNUAL PCP TEAM CHRONIC DISEASE VISIT [facility] Start: 05-02-2022 ANNUAL PCP TEAM CHRONIC DISEASE VISIT ANNUAL PCP TEAM CHRONIC DISEASE VISIT [facility] Start: 04-25-2022 Hepatitis B surface antibody level LDL CHOLESTEROL [facility] Start: 03-09-2022 ADVANCE DIRECTIVE DISCUSSION ADVANCE DIRECTIVE DISCUSSION [facility] Start: 03-09-2022 DEPRESSION ASSESSMENT DEPRESSION ASSESSMENT [facility] Start: 01-23-2022 Patient discharge [facility] Work Phone: Start: 01-21-2022 [facility] Work Phone: Start: 01-21-2022 Following clinical pathway protocol [facility] Work Phone: Start: 01-21-2022 Ambulation without limitation [facility] Work Phone: Start: 01-21-2022 Assessment of risk of venous thromboembolism [facility] Work Phone: Start: 01-21-2022 Catheterization of vein [facility] Work Phone: Start: 01-21-2022 Incentive spirometry [facility] Work Phone: Start: 01-21-2022 Insertion of catheter into peripheral vein [facility] Work Phone: Start: 01-21-2022 Oxygen therapy [facility] Work Phone: Start: 01-21-2022 Providing care according to standard [facility] Work Phone: Start: 01-21-2022 Provision of activity privileges [facility] Work Phone: Start: 01-21-2022 Referral to occupational therapist [facility] Work Phone: Start: 01-21-2022 Referral to service [facility] Work Phone: Start: 01-21-2022 [facility] Work Phone: Start: 01-21-2022 Verification routine [facility] Work Phone: Start: 01-21-2022 Admission procedure [facility] Work Phone: Start: 11-07-2021 Influenza vaccination [facility] Start: 10-30-2021 Adult depression screening assessment DEPRESSION SCREENING [facility] Start: 05-30-2021 COVID-19 VACCINE (4 - Booster for Pfizer series) COVID-19 VACCINE (4 - Booster for Pfizer series) [facility] Start: 03-09-2021 ADVANCE DIRECTIVE DISCUSSION ADVANCE DIRECTIVE DISCUSSION [facility] Start: 03-09-2021 DEPRESSION ASSESSMENT DEPRESSION ASSESSMENT [facility] Start: 08-18-2014 FECAL OCCULT BLOOD FECAL OCCULT BLOOD [facility] Start: 2005 RSV Vaccine (1 - 1-dose 60+ series) RSV Vaccine (1 - 1-dose 60+ series) [facility] Start: 1990 COLOGUARD (FIT-DNA) COLOGUARD (FIT-DNA) [facility] Start: [address] COLONOGRAPHY [facility] Start: 1990 SIGMOIDOSCOPY SIGMOIDOSCOPY [facility] Start: 12-30-1963 Anxiety Screening Anxiety Screening [facility] Start: 12-30-1963 BP CONTROLLED (<130/80) BP CONTROLLED (<130/80) [facility] Start: 12-30-1963 Depression Screening Depression Screening [facility] Bilirubin measuremen t, urine [facility] Hemoglobin [Presence ] in Urine [facility] Measurement of keton es in urine using dipstick [facility] Microscopic urinalysis [facility] Patient referral [facility] Work Phone: pH of Urine [facility] End: 02-13-2024 PT panel - Platelet poor plasma by Coagulation assay PROTHROMBIN TIME/PT Lab Routine Ischemic cardiomyopathy Once per week for 52 Occurrences starting 02/13/2023 until 02/13/2024, 1 completed [facility] Work Phone: Comment on above: Once per week for 52 Occurrences startin g 02/13/2023 until 02/13/2024, 1 completed End: 07-30-2024 PT panel - Platelet poor plasma by Coagulation assay PROTHROMBIN TIME Lab Routine LV (left ventricular) mural thrombus following ID (HCC) prison current use of anticoagulant Ischemic cardiomyopathy Once per week for 52 Occurrences starting 07/31/2023 until 07/30/2024 [facility] Work Phone: Comment on above: Once per week for 52 Occurrences startin g 07/31/2023 until 07/30/2024 End: 12-09-2024 PT panel - Platelet poor plasma by Coagulation assay PROTHROMBIN TIME Lab Routine LV (left ventricular) mural thrombus following ID (HCC) prison current use of anticoagulant therapy Ischemic cardiomyopathy 12 Occurrences starting 12/10/2023 until 12/09/2024 [facility] Work Phone: Comment on above: 12 Occurrences starting 12/10/2023 until 12/09/2024 Specific gravity of Urine [facility] Urinalysis, blood, qualitative [facility] Urine dipstick for glucose [facility] Urine dipstick for leukocyte esterase [facility] Urine dipstick for nitrite [facility] Urine dipstick for protein [facility] Urine examination [facility] Urine microscopy: epithelial cells [facility] Urine Microscopy: wh ite cells [facility] Urobilinogen [Presen ce] in Urine [facility] Immunizations Immunization Date Immunization Notes Care Provider Maikol coy 08-04-2023 COVID-19 vaccine, ag e 12+ yr, season (PFIZER-BIONTECH) Jordy Saucedo MD Work Phone: [facility] Work Phone: 02-13-2023 COVID-19 vaccine, ag e 12+ yr, season (PFIZER-BIONTECH) Jordy Saucedo MD Work Phone: [facility] 02-13-2023 influenza (HD-IIV4) vaccine, age 65+ yr, high dose, quadrivalent, PF (FLUZONE HIGH-DOSE) Jordy Saucedo MD Work Phone: [facility] 02-13-2023 influenza virus vacc ine, unspecified formulation Jordy Saucedo MD Work Phone: [facility] 01-14-2023 pneumococcal (PCV20) vaccine, 20 valent (PREVNAR 20) Jordy Saucedo MD Work Phone: [facility] Work Phone: 01-14-2023 respiratory syncytia l virus (RSV) vaccine, bivalent (ABRYSVO) Jordy Saucedo MD Work Phone: [facility] Work Phone: 12-24-2021 Influenza, high dose seasonal Dr. Jordy Saucedo MD Work Phone: [facility] 12-24-2021 influenza, high dose seasonal, preservative-free Dr. Jordy Saucedo Work Phone: [facility] 12-24-2021 influenza, high-dose , quadrivalent vaccine (FLUZONE HIGH DOSE QUADRIVALENT) Edith Chung APRNDionte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 ENGINEER Work Phone: [facility] 12-24-2021 influenza virus vacc ine, unspecified formulation Jeanette Munguia [facility] 01-30-2021 Covid (Pfizer) Dr. Jordy Saucedo Work Phone: [facility] 01-30-2021 COVID-19 original vaccine, full dose, monovalent (MODERNA) Jordy Saucedo MD Work Phone: [facility] 01-30-2021 Seasonal, quadrivale nt, recombinant, injectable influenza vaccine, preservative free Dr. Jordy Saucedo Work Phone: [facility] 07-29-2020 tetanus toxoid, redu diane diphtheria toxoid, and acellular pertussis vaccine, adsorbed [facility] 06-05-2020 Covid (Pfizer) Dr. Jordy Saucedo Work Phone: [facility] 05-15-2020 Covid (Pfizer) Dr. Jordy Saucedo Work Phone: [facility] 04-11-2020 zoster vaccine recombinant Lise Fallahi [facility] Work Phone: 01-02-2020 influenza, high-dose , quadrivalent vaccine (FLUZONE HIGH DOSE QUADRIVALENT) [facility] Work Phone: 01-02-2020 zoster vaccine recombinant [facility] Work Phone: 01-05-2019 tetanus toxoid, redu diane diphtheria toxoid, and acellular pertussis vaccine, adsorbed [facility] 11-24-2018 Influenza, high dose seasonal Dr. Jordy Saucedo MD Work Phone: [facility] 11-24-2018 influenza, high dose seasonal, preservative-free [facility] 12-15-2017 influenza, injectabl e, quadrivalent, contains preservative [facility] Work Phone: 12-15-2017 influenza, injectabl e, quadrivalent, preservative free Dr. Jordy Saucedo Work Phone: [facility] 04-23-2017 Influenza, high dose seasonal Dr. Jordy Saucedo MD Work Phone: [facility] 04-23-2017 influenza, high dose seasonal, preservative-free [facility] Work Phone: 03-05-2016 Influenza, high dose seasonal Dr. Jordy Saucedo MD Work Phone: [facility] 03-05-2016 influenza, high dose seasonal, preservative-free [facility] 02-26-2015 Influenza, high dose seasonal Dr. Jordy Saucedo MD Work Phone: [facility] 02-26-2015 influenza, high dose seasonal, preservative-free [facility] 08-28-2014 pneumococcal conjuga te vaccine, 13 valent [facility] 02-14-2014 influenza, injectabl e, quadrivalent, preservative free Dr. Jordy Saucedo Work Phone: [facility] 02-14-2014 influenza, seasonal, injectable Liseteja Galloi [facility] 02-14-2013 influenza virus vacc ine, unspecified formulation Lise [facility] 03-19-2012 Seasonal, quadrivale nt, recombinant, injectable influenza vaccine, preservative free Dr. Jordy Saucedo Work Phone: [facility] 07-23-2011 zoster vaccine, live [facility] Work Phone: 01-17-2011 influenza virus vacc ine, unspecified formulation [facility] Work Phone: 01-17-2011 pneumococcal polysaccharide vaccine, 23 valent [facility] Work Phone: 12-31-2009 influenza virus vacc ine, unspecified formulation [facility] Work Phone: 01-01-2009 influenza virus vacc ine, unspecified formulation [facility] Work Phone: 01-01-2009 influenza, injectabl e, quadrivalent, preservative free Dr. Jordy Saucedo Work Phone: [facility] 01-01-2009 novel influenza-H1N1 -09, preservative-free, injectable [facility] Work Phone: 05-12-2008 tetanus and diphther ia toxoids, adsorbed, preservative free, for adult use (2 Lf of tetanus toxoid and 2 Lf of diphtheria toxoid) [facility] Payers Date Payer Category Payer [facility] [employer] [id number] 2023 Unknown [id number] 2017 Unknown [employer] E HMO [id number] 2017-Present [phone] [address] [place] [address] O [id number] 2017 Unknown [id number] 2016 Self-pay 2016 Medicare [id number] 2010 Medicare [id number] 2010 Medicare [id number] 1945 Unknown [id number] .278 1945 Unknown [id number] [id number] .278 Unknown [id number] Unknown [id number] 2.16.840.1.848670.3.579.2 .462 Unknown [id number] 2.16840.1.001190.3.579.2 .462 Unknown [id number] 2.16840.1.264915.3.579.2 .462 Unknown [id number] 2.16840.1.718375.3.579.2 .462 Unknown [id number] 2.16840.1.154816.3.579.2 .462 Unknown [id number] 2.16.840.1.980671.3.579.2 .462 Unknown [id number] 2.16.840.1.278956.3.579.2 .462 Unknown [id number] 2.16.840.1.154548.3.579.2 .462 Unknown [id number] 2.16840.1.949639.3.579.2 .462 Unknown [id number] 2.16.840.1.276180.3.579.2 .462 Unknown [id number] 2.16.840.1.637963.3.579.2 .462 Unknown [id number] 2.16.840.1.705240.3.579.2 .462 Unknown [id number] 2.16.840.1.776086.3.579.2 .462 Unknown [id number] 2.16.840.1.000379.3.579.2 .462 Unknown [id number] 2.16.840.1.476248.3.579.2 .462 Unknown [id number] 2.16.840.1.185986.3.579.2 .462 Unknown [id number] 2.16.840.1.859974.3.579.2 .462 Unknown [id number] 2.16.840.1.590576.3.579.2 .462 Unknown [id number] 2.16.840.1.632522.3.579.2 .462 Unknown [id number] 2.16840.1.059689.3.579.2 .462 Unknown [id number] 2.16.840.1.809515.3.579.2 .462 Social History Date Type Detail Facility Start: 01-17-2011 End: 02-20-2023 Tobacco smoking status NJIS Ex-smoker [facility] Start: 03-09-1984 End: 03-09-1999 History of tobacco use Current smoker [facility] Start: 03-09-1984 End: 03-09-1999 History of tobacco use Cigarette Smoker [facility] Start: 05-02-2021 End: 08-12-2024 Alcohol intake Current non-drinker of alcohol (finding) [facility] Start: 1945 Sex Assigned At Not on file [facility] Start: 08-13-2021 History SDOH Alcohol Frequency 1 [facility] Start: 08-13-2021 History SDOH Physica l Activity DPW 0 [facility] Start: 08-13-2021 History SDOH Stress 2 [facility] Start: 08-03-2021 End: 08-13-2021 Exposure to SARS-CoV-2 (event) Not sure [facility] Work Phone: Start: 01-17-2011 End: 02-13-2023 Cigarettes smoked current (pack per day) - Reported 0.3 [facility] Work Phone: Start: 01-17-2011 End: 11-27-2023 Tobacco use and exposure Smokeless tobacco non-user [facility] Work Phone: Start: 01-21-2022 End: 02-20-2023 Tobacco smoking status NHIS Unknown if ever smoked [facility] Start: 07-29-2020 Cigarettes [facility] Start: 1945 Sex Assigned At Male [facility] Start: 12-24-2021 End: 02-13-2023 Tobacco use panel [facility] Work Phone: How often to you hav e a drink containing alcohol? Never [facility] Work Phone: Average Number of Drinks Not on file [facility] Work Phone: Do you feel stress - tense, restless, nervous, or anxious, or unable to sleep at night because your mind is troubled all the time - these days [OSQ] Only a little [facility] Work Phone: Start: 05-28-2024 End: 06-24-2024 Sex Male (finding) [facility] Medical Equipment Procedure Code Equipment Code Equipment Origin al Text Equipment Identifier Dates [employer] [employer] FDA Start: 04-14-2019 [place] [employer] FDA Start: 04-14-2019 [place] [employer] FDA Start: 04-14-2019 [place] [employer] FDA Start: 04-14-2019 [place] [employer] FDA Start: 04-14-2019 [place] [employer] FDA Start: 04-14-2019 [place] [employer] leads FDA Start: 04-14-2019 [place] [employer] FDA Start: 04-14-2019 [place] [employer] FDA Start: 04-14-2019 [place] [employer] FDA Start: 04-14-2019 [place] [employer] FDA Start: 04-14-2019 [place] [employer] FDA Start: 04-14-2019 [place] [employer] FDA Start: 04-14-2019 [place] [employer] FDA Start: 04-14-2019 Goals Date Patient Goal Desired Activity /State Functional Status Date Assessment Result Facility 08-12-2024 Total score [AUDIT-C] 0 08/13/19 25 2:34 PM Jordy Cole MD [facility] 02-28-2023 Functional status Ambulates [facility] Work Phone: 01-23-2022 Functional status Ambulates [facility] Work Phone: 10-04-2014 Are you deaf, or do you have serious difficulty hearing No 10/04/2014 10:11 AM Lenora Fish RN No [facility] 10-04-2014 Are you blind, or do you have serious difficulty seeing, even when wearing glasses No 10/04/2014 10:11 AM Lenora Fish RN No [facility] 10-04-2014 Do you have serious difficulty walking or climbing stairs No 10/04/2014 10:11 AM Lenora Fish RN No [facility] 10-04-2014 Do you have difficul ty dressing or bathing No 10/04/2014 10:11 AM Lenora Fish RN No [facility] 10-04-2014 Because of a physica l, mental, or emotional condition, do you have difficulty doing errands alone such as visiting a physician's office or shopping No 10/04/2014 10:11 AM Lenora Fish RN No [facility] Mental Status Date Assessment Result Facility 02-28-2023 Cognitive function Voice/Name [facility] Work Phone: 02-28-2023 Cognitive function Appropriate;[facility] Work Phone: 01-23-2022 Cognitive function Voice/Name [facility] Work Phone: 01-22-2022 Cognitive function Appropriate;[facility] Work Phone: 01-21-2022 Cognitive function Level Of Cons ciousness Awake;Alert;Appropriate;Fol lows Commands [facility] Work Phone: 10-04-2014 Because of a physica l, mental, or emotional condition, do you have serious difficulty concentrating, remembering, or making decisions No 10/04/2014 10:11 AM EDT Lenora Caputo RN No [facility] Clinical Notes 03-05-2016 to 09-27-2024 Telephone Encounter - Cece Mackey MA - 09/27/2024 11:48 AM EDTTelephone Encounter - Cece Mackey MA - 09/27/2024 11:48 AM EDTPatient InstructionsPatient Instructions Note Date & Type Note Facility 09-27-2024 Telephone encounter Note Patient notified and tracker updated Cece Mackey MA [facility] 09-27-2024 Miscellaneous Notes Patient notified and tracker updated Cece Mackey MA Dose: No Change. Repeat in INR in 1 month Edith Power APRN.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 ENGINEER Last INR: 2.7 09/27/2024 per [facility] lab draw Current dose of coumadin is: 5 mg Tuesdays, AND Saturdays. 2.5 mg Sundays, Mondays, Wednesdays, and Fridays. Last date of dose change: 07/04/24. Previous INR (date and result): 08/30/24 was 3.1 Additional Clinical Information or narrative: INR goal 2-3. Pt findings are negative. NEED TO LET PT KNOW OF COUMADIN INSTRUCTIONS AND OUTREACH LAB AT [facility] WHEN TO DRAW INR AGAIN. Call [facility] outreach lab at [phone]. documented in this encounter [facility] 09-27-2024 Telephone encounter Note Dose: No Change. Repeat in INR in 1 month Edith Power APRN.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 ENGINEER [facility] 09-27-2024 Telephone encounter Note Last INR: 2.7 09/27/2024 per [facility] lab draw Current dose of coumadin is: 5 mg Tuesdays, AND Saturdays. 2.5 mg Sundays, Mondays, Wednesdays, and Fridays. Last date of dose change: 07/04/24. Previous INR (date and result): 08/30/24 was 3.1 Additional Clinical Information or narrative: INR goal 2-3. Pt findings are negative. NEED TO LET PT KNOW OF COUMADIN INSTRUCTIONS AND OUTREACH LAB AT [facility] WHEN TO DRAW INR AGAIN. Call [facility] outreach lab at [phone]. [facility] 09-19-2024 Telephone encounter Note 08/12/2024 Lab results mailed to Patient. Tamia Carson LPN [facility] 09-19-2024 Miscellaneous Notes 08/12/2024 Lab results mailed to Patient. Tamia Carson LPN Patient called requesting lab work results to be mailed to his home address please (As he does not use my chart) Please advise documented in this encounter [facility] 09-19-2024 Telephone encounter Note Patient called requesting lab work results to be mailed to his home address please (As he does not use my chart) Please advise [facility] Work Phone: 08-30-2024 Telephone encounter Note Patient was notified and tracker updated Cece Mackey MA [facility] 08-30-2024 Miscellaneous Notes Patient was notified and tracker updated Cece Mackey MA Continue Coumadin dose. INR in 4 weeks. Last INR: 3.1 08/30/2024 [facility] lab draw Current dose of coumadin is: 5 mg Tuesdays, AND Saturdays. 2.5 mg Sundays, Mondays, Wednesdays, and Fridays. Last date of dose change: 07/04/24. Previous INR (date and result): 08/02/24 was 2.8 Additional Clinical Information or narrative: INR goal is 2-3. : NEED TO LET PT KNOW OF COUMADIN INSTRUCTIONS AND OUTREACH LAB AT [facility] WHEN TO DRAW INR AGAIN. Call [facility] outreach lab at [phone]. documented in this encounter [facility] 08-30-2024 Telephone encounter Note Continue Coumadin dose. INR in 4 weeks. [facility] 08-30-2024 Telephone encounter Note Last INR: 3.1 08/30/2024 [facility] lab draw Current dose of coumadin is: 5 mg Tuesdays, AND Saturdays. 2.5 mg Sundays, Mondays, Wednesdays, and Fridays. Last date of dose change: 07/04/24. Previous INR (date and result): 08/02/24 was 2.8 Additional Clinical Information or narrative: INR goal is 2-3. : NEED TO LET PT KNOW OF COUMADIN INSTRUCTIONS AND OUTREACH LAB AT [facility] WHEN TO DRAW INR AGAIN. Call [facility] outreach lab at [phone]. [facility] 08-30-2024 Telephone encounter Note Faxed INR standing order to [facility] Lab per Pedro request. [facility] 08-30-2024 Miscellaneous Notes Faxed INR standing order to [facility] Lab per Pedro request. documented in this encounter [facility] 08-12-2024 Instructions Jordy Saucedo MD - 08/12/2024 3:07 PM EDT Screening schedule The following prevention plan is recommended: LDL Cholesterol due on 02/14/2024 WHAT YOU CAN DO TO PREVENT FALLS Many falls can be prevented. By making some changes, you can lower your chances of falling. Four things YOU can do to prevent falls for you* and your caregiver 1. Begin a regular exercise program Exercise is one of the most important ways to lower your chances of falling. It makes you stronger and helps you feel better. Exercises that improve balance and coordination (like Roman Chi) are the most helpful. Lack of exercise leads to weakness and increases your chances of falling. Ask your doctor or health care provider about the best type of exercise program for you. 2. Have your health care provider review your medicines Have your doctor or pharmacist review all the medicines you take, even [id number] medicines. As you get older, the way medicines work in your body can change. Some medicines, or combinations of medicines, can make you sleepy or dizzy and can cause you to fall. 3. Have your vision checked Have your eyes checked by an eye doctor at least once a year. You may be wearing the wrong glasses or have a condition like glaucoma or cataracts that limits your vision. Poor vision can increase your chances of falling. 4. Make your home safer About half of all falls happen at home. To make your home safer: Remove things you can trip over (like papers, books, clothes, and shoes) from stairs and places where you walk. Remove small throw rugs or use double-sided tape to keep the rugs from slipping. Keep items you use often in cabinets you can reach easily without using a step stool. Have grab bars put in next to your toilet and in the tub or shower. Use non-slip mats in the bathtub and on shower floors. Improve the lighting in your home. As you get older, you need brighter lights to see well. Hang light-weight curtains or shades to reduce glare. Have handrails and lights put in on all staircases. Wear shoes both inside and outside the house. Avoid going barefoot or wearing slippers. For more information, contact: Centers for Disease Control and Prevention www.cdc.gov/injury * This information may not apply if you have certain medical conditions. documented in this encounter [facility] 08-12-2024 Note HNO ID: [id number] Author: JORDY SAUCEDO MD Service: ? Author Type: Physician Type: Progress Notes Filed: 08/12/2024 15:31 Note Text: This note was created using [employer]. Subjective Patient presents with: Medicare Wellness Exam Recheck Osman Jones is a 78 year old male here with his daughter. He was unable to safely stand and be weighed. He mainly sat on his recliner at home, using his walker for short mobility needs like going to the bathroom. He does not go to the living room or kitchen. He started going more to the [facility] for care including cardiology, neurology, and will go there for optometry. He did not tolerate Sinemet last year, but he still took one tablet as needed for restless legs. Review of Systems Constitutional: Negative for appetite change, fatigue, fever and unexpected weight change. HENT: Negative for congestion and trouble swallowing. Eyes: Negative for visual disturbance. Respiratory: Negative for cough, chest tightness and shortness of breath. Cardiovascular: Positive for leg swelling. Negative for chest pain and palpitations. Gastrointestinal: Negative for abdominal pain, constipation and diarrhea. Genitourinary: Negative for difficulty urinating and dysuria. Musculoskeletal: Negative for arthralgias and back pain. Skin: Positive for color change. Negative for wound. Neurological: Negative for dizziness and headaches. 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) Cerebral Ventriculomegaly Dizziness prison current use of anticoagulant Obesity, Class I, Bmi 30-34.9 Ischemic Cardiomyopathy Presence of Implantable Cardioverter-Defibrillator (Icd) Abnormality of Gait Nocturia Parkinsonism (Hcc) Social History Tobacco Use Smoking status: Former Current packs/day: 0.00 Average packs/day: 0.3 packs/day for 15.0 years (3.8 ttl pk-yrs) Types: Cigarettes Start date: 03/09/1984 Quit date: 03/09/1999 Years since quittin.4 Smokeless tobacco: Never Vaping Use Vaping status: Never Used Substance Use Topics Alcohol use: No Drug use: No Current Outpatient Medications Medication Sig metoprolol tartrate, short acting, (LOPRESSOR) 25 mg tablet Take 0.5 tablets by mouth two times a day. losartan (COZAAR) 50 mg tablet Take 1 tablet by mouth once daily. spironolactone (ALDACTONE) 25 mg tablet Take 1 tablet by mouth once daily. Dr. Escobar warfarin (COUMADIN) 5 mg tablet Take 5 mg every Thu, Thu, Thu; 2.5 mg all other days or as directed by [facility] cholecalciferol, vitamin D3, (VITAMIN D3 ORAL) Take by mouth. nitroglycerin sublingual (NITROQUICK) 0.4 mg SL tablet Dissolve 1 tablet under the tongue every 5 minutes as needed for chest pain. aspirin(ECOTRIN LOW STRENGTH 81 MG TAB) Take one(1) tablet daily. atorvastatin (LIPITOR) 80 mg tablet Take 1 tablet by mouth once daily. Takes 1/2 tab Thu, Thu AND Thursday. 1 tab rest of days carbidopa-levodopa (SINEMET) 25-100 mg per tablet Take one(1) tablet daily at bedtime as needed. Restless legs. No current facility-administered medications for this visit. Objective BP 120/70 Pulse 66 SpO2 96% Physical Exam Constitutional: General: He is not in acute distress. HENT: Head: Normocephalic. Right Ear: Ear canal normal. There is no impacted cerumen. Left Ear: Ear canal normal. There is no impacted cerumen. Nose: No congestion or rhinorrhea. Eyes: General: No scleral icterus. Conjunctiva/sclera: Conjunctivae normal. Cardiovascular: Rate and Rhythm: Normal rate and regular rhythm. Pulses: Normal pulses. Heart sounds: No murmur heard. No gallop. Pulmonary: Effort: No respiratory distress. Breath sounds: No wheezing or rales. Abdominal: General: There is no distension. Palpations: Abdomen is soft. Tenderness: There is no abdominal tenderness. Musculoskeletal: Right lower le+ Pitting Edema present. Left lower le+ Pitting Edema present. Lymphadenopathy: Cervical: No cervical adenopathy. Skin: Findings: Erythema (stasis dermatitis of both lower legs.) present. Neurological: General: No focal deficit present. Mental Status: He is alert and oriented to person, place, and time. Comments: Wheelchair bound. Assessment and Plan 1. Medicare annual wellness visit, subsequent - ICD9: V70.0, ICD10: Z00.00 (primary diagnosis) - See wellness note. 2. PURE HYPERCHOLESTEROLEM - ICD9: 272.0, ICD10: E78.00 - ATORVASTATIN 80 MG TABLET - COMPREHENSIVE METABOLIC PANEL - LIPID PANEL, NONFASTING 3. Essential hypertension - ICD9: 401.9, ICD10: I10 - Controlled - Continue current medications - COMPLETE BLOOD COUNT 4. Encounter for screening examination for other mental health and behavioral disorders - ICD9: V79.8, ICD10: Z13.39 - ANXIETY SCREENING 5. Screening for de (more content not included)... [facility] 08-12-2024 History of Present illness Narrative This note was created using [employer]. Subjective Patient presents with: Medicare Wellness Exam Recheck Osman Jones is a 78 year old male here with his daughter. He was unable to safely stand and be weighed. He mainly sat on his recliner at home, using his walker for short mobility needs like going to the bathroom. He does not go to the living room or kitchen. He started going more to the [facility] for care including cardiology, neurology, and will go there for optometry. He did not tolerate Sinemet last year, but he still took one tablet as needed for restless legs. Review of Systems Constitutional: Negative for appetite change, fatigue, fever and unexpected weight change. HENT: Negative for congestion and trouble swallowing. Eyes: Negative for visual disturbance. Respiratory: Negative for cough, chest tightness and shortness of breath. Cardiovascular: Positive for leg swelling. Negative for chest pain and palpitations. Gastrointestinal: Negative for abdominal pain, constipation and diarrhea. Genitourinary: Negative for difficulty urinating and dysuria. Musculoskeletal: Negative for arthralgias and back pain. Skin: Positive for color change. Negative for wound. Neurological: Negative for dizziness and headaches. 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) Cerebral Ventriculomegaly Dizziness prison current use of anticoagulant Obesity, Class I, Bmi 30-34.9 Ischemic Cardiomyopathy Presence of Implantable Cardioverter-Defibrillator (Icd) Abnormality of Gait Nocturia Parkinsonism (Hcc) Social History Tobacco Use Smoking status: Former Current packs/day: 0.00 Average packs/day: 0.3 packs/day for 15.0 years (3.8 ttl pk-yrs) Types: Cigarettes Start date: 03/09/1984 Quit date: 03/09/1999 Years since quittin.4 Smokeless tobacco: Never Vaping Use Vaping status: Never Used Substance Use Topics Alcohol use: No Drug use: No Current Outpatient Medications Medication Sig metoprolol tartrate, short acting, (LOPRESSOR) 25 mg tablet Take 0.5 tablets by mouth two times a day. losartan (COZAAR) 50 mg tablet Take 1 tablet by mouth once daily. spironolactone (ALDACTONE) 25 mg tablet Take 1 tablet by mouth once daily. Dr. Escobar warfarin (COUMADIN) 5 mg tablet Take 5 mg every Thu, Thu, Thu; 2.5 mg all other days or as directed by [facility] cholecalciferol, vitamin D3, (VITAMIN D3 ORAL) Take by mouth. nitroglycerin sublingual (NITROQUICK) 0.4 mg SL tablet Dissolve 1 tablet under the tongue every 5 minutes as needed for chest pain. aspirin(ECOTRIN LOW STRENGTH 81 MG TAB) Take one(1) tablet daily. atorvastatin (LIPITOR) 80 mg tablet Take 1 tablet by mouth once daily. Takes 1/2 tab Thu, Thu & Thursday. 1 tab rest of days carbidopa-levodopa (SINEMET) 25-100 mg per tablet Take one(1) tablet daily at bedtime as needed. Restless legs. No current facility-administered medications for this visit. Objective BP 120/70 Pulse 66 SpO2 96% Physical Exam Constitutional: General: He is not in acute distress. HENT: Head: Normocephalic. Right Ear: Ear canal normal. There is no impacted cerumen. Left Ear: Ear canal normal. There is no impacted cerumen. Nose: No congestion or rhinorrhea. Eyes: General: No scleral icterus. Conjunctiva/sclera: Conjunctivae normal. Cardiovascular: Rate and Rhythm: Normal rate and regular rhythm. Pulses: Normal pulses. Heart sounds: No murmur heard. No gallop. Pulmonary: Effort: No respiratory distress. Breath sounds: No wheezing or rales. Abdominal: General: There is no distension. Palpations: Abdomen is soft. Tenderness: There is no abdominal tenderness. Musculoskeletal: Right lower le+ Pitting Edema present. Left lower le+ Pitting Edema present. Lymphadenopathy: Cervical: No cervical adenopathy. Skin: Findings: Erythema (stasis dermatitis of both lower legs.) present. Neurological: General: No focal deficit present. Mental Status: He is alert and oriented to person, place, and time. Comments: Wheelchair bound. Assessment and Plan 1. Medicare annual wellness visit, subsequent - ICD9: V70.0, ICD10: Z00.00 (primary diagnosis) - See wellness note. 2. PURE HYPERCHOLESTEROLEM - ICD9: 272.0, ICD10: E78.00 - ATORVASTATIN 80 MG TABLET - COMPREHENSIVE METABOLIC PANEL - LIPID PANEL, NONFASTING 3. Essential hypertension - ICD9: 401.9, ICD10: I10 - Controlled - Continue current medications - COMPLETE BLOOD COUNT 4. Encounter for screening examination for other mental health and behavioral disorders - ICD9: V79.8, ICD10: Z13.39 - ANXIETY SCREENING 5. Screening for depression - ICD9: V79.0, ICD10: Z13.31 - DEPRESSION SCREENING 6. Parkinsonism, unspecified Parkinsonism type (HCC) - ICD9: 332.0, ICD10: G20.C Medication not tolerated as prescribed. [place] neurologist advised a higher dose, but he declined due to side effects. - CARBIDOPA 25 MG-LEVODOPA 100 MG TABLET. He uses this as needed for RLS. 7. Atherosclerosis of [place] coronary artery of [place] heart without angina pectoris - ICD9: 414.01, ICD10: I25.10 Stable. 8. Impaired fasting glucose - ICD9: 790.21, ICD10: R73.01 Recheck due. - HEMOGLOBIN A1C 9. 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 10. Ischemic cardiomyopathy - ICD9: 414.8, ICD10: I25.5 Stable. He can use compression stockings for edema. Leg elevation should be as effective since he was sedentary. 11. Presence of implantable cardioverter-defibrillator (ICD) - ICD9: V45.02, ICD10: Z95.810 Stable. 12. Abnormality of gait - ICD9: 781.2, ICD10: R26.9 Fall precautions. 13. Vitamin D deficiency - ICD9: 268.9, ICD10: E55.9 - VITAMIN D 25 HYDROXY 14. Restless legs - ICD9: 333.94, ICD10: G25.81 See Jordy Saucedo MD Images from the original note were not included. Osman Jones is a 78 year old male here for a Medicare wellness visit. Medicare Health Risk Assessment General Health Poor Exercise: Minutes/Day 0 min Exercise: Days/Week 0 days Alcohol: Daily Use Never Alcohol: Drinks/Day Patient does not drink Alcohol: 6 or more drinks Never Feel off balance Yes Concerns: Teeth/Dentures No Concerns: Sexual function No Troubled by feelings None of the above Frequency: Eating healthy diet Nearly every day ADLs requiring help Grocery shopping; Cooking; Housework; Walking; Sitting or standing; Bathing; Driving Safety precautions in home/vehicle Yes Smoke, vape, chews tobacco No Difficulty hearing Yes Difficulty seeing No Current Providers Specialists: I have reviewed specialist-related care of the patient in the medical record. Current care team: Patient Care Team: Jordy Saucedo MD as PCP - General Edith Power APRN.WILMER as Lining Maker (Internal Medicine) Outside specialists seen: [place] provider. [place] neurologist. 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 [place] optometry. [facility] (device) Medical/Family history review Reviewed and updated problem list, medical/surgical/family/social history, medications, and allergies. Opioid use review Opioid Medications (last 90 days) No data to display Anxiety/Depression screening Recommendation: no further intervention at this time Cognitive screening Mini Cog Score: 5 Cognitive screening reviewed and No further action needed (score 3-5). Functional Observation Was the patient's Timed Up & Go test unsteady or >= 12 seconds? Yes Advance Care Planning Patient did not wish or was not able to name a surrogate decision maker or provide an advance care plan Measurements BP 120/70 Pulse 66 SpO2 96% Vision Screening: Follows with optometry/ophthalmology Declines visual acuity screen Assessment/Plan Medicare annual wellness visit, subsequent (Z00.00) - Counseled on healthy diet and regular exercise - Fall avoidance information provided - Personalized prevention plan provided documented in this encounter [facility] 08-12-2024 Note HNO ID: [id number] Author: JORDY SAUCEDO MD Service: ? Author Type: Physician Type: Progress Notes Filed: 08/12/2024 15:31 Note Text: Osman Jones is a 78 year old male here for a Medicare wellness visit. Medicare Health Risk Assessment General Health Poor Exercise: Minutes/Day 0 min Exercise: Days/Week 0 days Alcohol: Daily Use Never Alcohol: Drinks/Day Patient does not drink Alcohol: 6 or more drinks Never Feel off balance Yes Concerns: Teeth/Dentures No Concerns: Sexual function No Troubled by feelings None of the above Frequency: Eating healthy diet Nearly every day ADLs requiring help Grocery shopping; Cooking; Housework; Walking; Sitting or standing; Bathing; Driving Safety precautions in home/vehicle Yes Smoke, vape, chews tobacco No Difficulty hearing Yes Difficulty seeing No Current Providers Specialists: I have reviewed specialist-related care of the patient in the medical record. Current care team: Patient Care Team: Jordy Saucedo MD as PCP - General Edith Power APRN.WILMER as Lining Maker (Internal Medicine) Outside specialists seen: NH provider. NH neurologist. 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 [place] optometry. [facility] (device) Medical/Family history review Reviewed and updated problem list, medical/surgical/family/social history, medications, and allergies. Opioid use review Opioid Medications (last 90 days) No data to display Anxiety/Depression screening Recommendation: no further intervention at this time Cognitive screening Mini Cog Score: 5 Cognitive screening reviewed and No further action needed (score 3-5). Functional Observation Was the patient's Timed Up AND Go test unsteady or >= 12 seconds? Yes Advance Care Planning Patient did not wish or was not able to name a surrogate decision maker or provide an advance care plan Measurements BP 120/70 Pulse 66 SpO2 96% Vision Screening: Follows with optometry/ophthalmology Declines visual acuity screen Assessment/Plan Medicare annual wellness visit, subsequent (Z00.00) - Counseled on healthy diet and regular exercise - Fall avoidance information provided - Personalized prevention plan provided [facility] 08-02-2024 Telephone encounter Note was notified and [facility] outpatient lab notified Fax TE to [phone] eCce Mackey MA [facility] 08-02-2024 Miscellaneous Notes was notified and [facility] outpatient lab notified Fax TE to [phone] Cece Mackey MA Continue Coumadin dose. INR in 4 weeks. Last INR: INR 2.8 08/02/2024 [facility] outreach lab Current dose of coumadin is: 5 mg Tuesdays, AND Saturdays. 2.5 mg Sundays, Mondays, Wednesdays, and Fridays. Last date of dose change: 07/04. Previous INR (date and result): 07/04 2.7 Additional Clinical Information or narrative: NEED TO LET PT KNOW OF COUMADIN INSTRUCTIONS AND OUTREACH LAB AT [facility] WHEN TO DRAW INR AGAIN. Call [facility] outreach lab at [phone]. Cece Mackey MA documented in this encounter [facility] 08-02-2024 Telephone encounter Note Continue Coumadin dose. INR in 4 weeks. [facility] 08-02-2024 Telephone encounter Note Last INR: INR 2.8 08/02/2024 [facility] outreach lab Current dose of coumadin is: 5 mg Tuesdays, AND Saturdays. 2.5 mg Sundays, Mondays, Wednesdays, and Fridays. Last date of dose change: 07/04. Previous INR (date and result): 07/04 2.7 Additional Clinical Information or narrative: NEED TO LET PT KNOW OF COUMADIN INSTRUCTIONS AND OUTREACH LAB AT [facility] WHEN TO DRAW INR AGAIN. Call [facility] outreach lab at [phone]. Cece Mackey MA [facility] 07-25-2024 Telephone encounter Note Patient was scheduled in office 08/12/24 Cece Mackey MA [facility] 07-25-2024 Miscellaneous Notes Patient was scheduled in office 08/12/24 Cece Mackey MA Pt needs appt-was to have 6 month follow up in April of 2024. Please call to get appt set up for pt prior to sending refill request to provider. Prescription Refill Information The patient has been identified by name and date of : Yes Caregiver verified no other encounters exist for this prescription request: Yes Caregiver confirmed with patient/requestor that no other refills are due, in the near future, with this provider at this time: Yes The last office visit in the department: 11/27/2023 Does the patient have a future office visit with this provider/department: No Requested Prescriptions Pending Prescriptions Disp Refills metoprolol tartrate, short acting, (LOPRESSOR) 25 mg tablet 90 tablet 3 Sig: Take 0.5 tablets by mouth two times a day. losartan (COZAAR) 50 mg tablet 90 tablet 3 Sig: Take 1 tablet by mouth once daily. spironolactone (ALDACTONE) 25 mg tablet 90 tablet 3 Sig: Take 1 tablet by mouth once daily. Dr. Escobar atorvastatin (LIPITOR) 80 mg tablet 90 tablet 3 Sig: Take 1 tablet by mouth once daily. Takes 1/2 tab Mon, Wed & Thursday. 1 tab rest of days Alona Zapata July 22, 2024 4:04 PM documented in this encounter [facility] 07-22-2024 Telephone encounter Note Pt needs appt-was to have 6 month follow up in April of 2024. Please call to get appt set up for pt prior to sending refill request to provider. [facility] 07-22-2024 Telephone encounter Note Prescription Refill Information The patient has been identified by name and date of : Yes Caregiver verified no other encounters exist for this prescription request: Yes Caregiver confirmed with patient/requestor that no other refills are due, in the near future, with this provider at this time: Yes The last office visit in the department: 11/27/2023 Does the patient have a future office visit with this provider/department: No Requested Prescriptions Pending Prescriptions Disp Refills metoprolol tartrate, short acting, (LOPRESSOR) 25 mg tablet 90 tablet 3 Sig: Take 0.5 tablets by mouth two times a day. losartan (COZAAR) 50 mg tablet 90 tablet 3 Sig: Take 1 tablet by mouth once daily. spironolactone (ALDACTONE) 25 mg tablet 90 tablet 3 Sig: Take 1 tablet by mouth once daily. Dr. Escobar atorvastatin (LIPITOR) 80 mg tablet 90 tablet 3 Sig: Take 1 tablet by mouth once daily. Takes 1/2 tab Thu, Thu & Thursday. 1 tab rest of days Alona Zapata July 22, 2024 4:04 PM [facility] 07-04-2024 Telephone encounter Note Patient notified of results and provider's instructions. Patient verbalizes understanding. Shona Goins LPN Next draw called [facility] outreach.message left with this info. [facility] 07-04-2024 Miscellaneous Notes Patient notified of results and provider's instructions. Patient verbalizes understanding. Shona Goins LPN Next draw called [facility] outreach.message left with this info. Continue Coumadin dose. INR in 4 weeks. Last INR: 2.7 07/04/2024 [facility] outreach lab Current dose of coumadin is: . 5 mg Tuesdays, AND Saturdays. 2.5 mg Sundays, Mondays, Wednesdays, and Fridays. Last date of dose change: 06/20/24. Previous INR (date and result): 06/20/24 was 1.9 Additional Clinical Information or narrative: INR goal is 2-3 Pt findings are negative. NEED TO LET PT KNOW OF COUMADIN INSTRUCTIONS AND OUTREACH LAB AT [facility] WHEN TO DRAW INR AGAIN. Call [facility] outreach lab at [phone]. documented in this encounter [facility] 07-04-2024 Telephone encounter Note Continue Coumadin dose. INR in 4 weeks. [facility] 07-04-2024 Telephone encounter Note Last INR: 2.7 07/04/2024 [facility] outreach lab Current dose of coumadin is: . 5 mg Tuesdays, AND Saturdays. 2.5 mg Sundays, Mondays, Wednesdays, and Fridays. Last date of dose change: 06/20/24. Previous INR (date and result): 06/20/24 was 1.9 Additional Clinical Information or narrative: INR goal is 2-3 Pt findings are negative. NEED TO LET PT KNOW OF COUMADIN INSTRUCTIONS AND OUTREACH LAB AT [facility] WHEN TO DRAW INR AGAIN. Call [facility] outreach lab at [phone]. [facility] 06-20-2024 Telephone encounter Note Pt notified and message left to [facility] outreach lab with next draw. [facility] 06-20-2024 Miscellaneous Notes Pt notified and message left to [facility] outreach lab with next draw. Increase Coumadin dose. 5 mg Tuesdays, AND Saturdays. 2.5 mg Sundays, Mondays, Wednesdays, and Fridays.. INR in 2 weeks. Last INR:1.9 06/20/2024 from [facility] lab draw Current dose of coumadin is:5 mg Thu and . 2.5 mg Thu, Thu, Thu, Thu, and Saturdays. Last date of dose change: 03/14/24. Previous INR (date and result): 05/23/24 2.1 Additional Clinical Information or narrative: INR goal is 2-3. Pt findings are negative. NEED TO LET PT KNOW OF COUMADIN INSTRUCTIONS AND OUTREACH LAB AT [facility] WHEN TO DRAW INR AGAIN. Call [facility] outreach lab at [phone]. documented in this encounter [facility] 06-20-2024 Telephone encounter Note Increase Coumadin dose. 5 mg Tuesdays, AND Saturdays. 2.5 mg Sundays, Mondays, Wednesdays, and Fridays.. INR in 2 weeks. [facility] 06-20-2024 Telephone encounter Note Last INR:1.9 06/20/2024 from [facility] lab draw Current dose of coumadin is:5 mg Thu and . 2.5 mg Sun, Thu, Thu, Thu, and Saturdays. Last date of dose change: 03/14/24. Previous INR (date and result): 05/23/24 2.1 Additional Clinical Information or narrative: INR goal is 2-3. Pt findings are negative. NEED TO LET PT KNOW OF COUMADIN INSTRUCTIONS AND OUTREACH LAB AT [facility] WHEN TO DRAW INR AGAIN. Call [facility] outreach lab at [phone]. [facility] 05-27-2024 Telephone encounter Note Marcos with [facility] Outreach Lab called and is notified of providers instructions. He voices understanding and states he will put the Pt down for 06/20/24. Angelica Piña RN [facility] 05-27-2024 Miscellaneous Notes Marcos with [facility] Outreach Lab called and is notified of providers instructions. He voices understanding and states he will put the Pt down for 06/20/24. Angelica Piña RN See anticoagulation note 05/23/24. Next INR recommended 4 weeks from that one. Tangela with [facility] Outreach Lab called in and report they went out and did the Pts INR on Thursday05/23/24. She states they Ptt typically only gets it done once month. She states one time the provider ordered the Pt to get it done in 2 weeks and the Pt refused. She was asking when the provider would like to have them redraw the INR. I don't see the lab in scanned documents or uploaded into our documents section as external documents. Please call and advise. She states they are only there until 1130, after that leave a VM. documented in this encounter [facility] 05-27-2024 Telephone encounter Note See anticoagulation note 05/23/24. Next INR recommended 4 weeks from that one. [facility] 05-27-2024 Telephone encounter Note Tangela with [facility] Outreach Lab called in and report they went out and did the Pts INR on Thursday05/23/24. She states they Ptt typically only gets it done once month. She states one time the provider ordered the Pt to get it done in 2 weeks and the Pt refused. She was asking when the provider would like to have them redraw the INR. I don't see the lab in scanned documents or uploaded into our documents section as external documents. Please call and advise. She states they are only there until 1130, after that leave a VM. [facility] 05-23-2024 Telephone encounter Note Pt called and is notified of providers results and instructions. Pt voices understanding. Updated Anticoag tracker. Angelica Piña RN [facility] 05-23-2024 Miscellaneous Notes Pt called and is notified of providers results and instructions. Pt voices understanding. Updated Anticoag tracker. Angelica Piña RN Continue Coumadin dose. INR in 4 weeks. Last INR: 2.1 05/23/2024 INR draw from [facility] out reach lab Current dose of coumadin is: 5 mg e and . 2.5 mg Sun, Thu, Thu, Thu, and Saturdays. . . Last date of dose change: 03/14/24. Previous INR (date and result): 04/25/24 was 2.6 Additional Clinical Information or narrative: INR goal is 2-3. Pt findings are negative. NEED TO LET PT KNOW OF COUMADIN INSTRUCTIONS AND OUTREACH LAB AT [facility] WHEN TO DRAW INR AGAIN. Call [facility] outreach lab at [phone]. documented in this encounter [facility] 05-23-2024 Telephone encounter Note Continue Coumadin dose. INR in 4 weeks. [facility] 05-23-2024 Telephone encounter Note Last INR: 2.1 05/23/2024 INR draw from [facility] out reach lab Current dose of coumadin is: 5 mg Thu and . 2.5 mg Sun, Thu, Thu, Thu, and Saturdays. . . Last date of dose change: 03/14/24. Previous INR (date and result): 04/25/24 was 2.6 Additional Clinical Information or narrative: INR goal is 2-3. Pt findings are negative. NEED TO LET PT KNOW OF COUMADIN INSTRUCTIONS AND OUTREACH LAB AT [facility] WHEN TO DRAW INR AGAIN. Call [facility] outreach lab at [phone]. [facility] 04-25-2024 Telephone encounter Note Pt notified and message left to [facility] outreach lab with next INR draw. [facility] 04-25-2024 Miscellaneous Notes Pt notified and message left to [facility] outreach lab with next INR draw. Continue Coumadin dose. INR in 4 weeks. Last INR: 2.6 04/25/2024 from [facility] outreach lab Current dose of coumadin is: 5 mg Tue and Th. 2.5 mg Sun, Thu, Thu, Thu, and Saturdays. . Last date of dose change: 03/14/24. Previous INR (date and result): 04/04/24 was 2.0 Additional Clinical Information or narrative: INR goal is 2-3 pt findings are negative NEED TO LET PT KNOW OF COUMADIN INSTRUCTIONS AND OUTREACH LAB AT [facility] WHEN TO DRAW INR AGAIN. Call [facility] outreach lab at [phone] documented in this encounter [facility] 04-25-2024 Telephone encounter Note Continue Coumadin dose. INR in 4 weeks. [facility] 04-25-2024 Telephone encounter Note Last INR: 2.6 04/25/2024 from [facility] outreach lab Current dose of coumadin is: 5 mg Tue and . 2.5 mg Sun, Thu, Thu, Thu, and Saturdays. . Last date of dose change: 03/14/24. Previous INR (date and result): 04/04/24 was 2.0 Additional Clinical Information or narrative: INR goal is 2-3 pt findings are negative NEED TO LET PT KNOW OF COUMADIN INSTRUCTIONS AND OUTREACH LAB AT [facility] WHEN TO DRAW INR AGAIN. Call [facility] outreach lab at [phone] [facility] 04-15-2024 Telephone encounter Note Pcp rec'd form from [facility]. They help manage pt's chronic diseases. Reviewed with pt and pt is asking for pcp to complete this. It was done and faxed back. [facility] 04-15-2024 Miscellaneous Notes Pcp rec'd form from [facility]. They help manage pt's chronic diseases. Reviewed with pt and pt is asking for pcp to complete this. It was done and faxed back. documented in this encounter [facility] 04-06-2024 Telephone encounter Note Pt and [facility] outreach lab notified. [facility] 04-06-2024 Miscellaneous Notes Pt and [facility] outreach lab notified. Continue Coumadin dose. INR in 3 weeks. Last INR: 2.0 04/04/2024 per [facility] outreach lab Current dose of coumadin is: 5 mg Thu and . 2.5 mg Thu, Thu, Thu, Thu, and Saturdays. . Last date of dose change: 03/14/24. Previous INR (date and result): 03/14/24 was 3.2 Additional Clinical Information or narrative: INR goal is 2-3. Need to let [facility] outreach lab know when to check INR and call pt with instructions. Call them at [phone] and leave a message. Pt findings are negative. NEED TO LET PT KNOW OF COUMADIN INSTRUCTIONS AND OUTREACH LAB AT [facility] WHEN TO DRAW INR AGAIN. documented in this encounter [facility] 04-05-2024 Telephone encounter Note Continue Coumadin dose. INR in 3 weeks. [facility] 04-04-2024 Telephone encounter Note Last INR: 2.0 04/04/2024 per [facility] outreach lab Current dose of coumadin is: 5 mg Thu and . 2.5 mg Sun, Thu, Thu, Thu, and Saturdays. . Last date of dose change: 03/14/24. Previous INR (date and result): 03/14/24 was 3.2 Additional Clinical Information or narrative: INR goal is 2-3. Need to let [facility] outreach lab know when to check INR and call pt with instructions. Call them at [phone] and leave a message. Pt findings are negative. NEED TO LET PT KNOW OF COUMADIN INSTRUCTIONS AND OUTREACH LAB AT [facility] WHEN TO DRAW INR AGAIN. [facility] 03-14-2024 Telephone encounter Note Pt notified and message left to [facility] out reach lab to next INR due in 3 weeks. [facility] 03-14-2024 Miscellaneous Notes Pt notified and message left to [facility] out reach lab to next INR due in 3 weeks. Decrease Coumadin dose 5 mg Thu and . 2.5 mg Sun, Thu, Thu, Thu, and Saturdays. INR in 3 weeks. Last INR: 3.2 03/14/2024 per [facility] outreach lab Current dose of coumadin is: 5 mg Thu, , Thu and 2.5 mg Sun, Thu, Thu, Thu. . Last date of dose change: .02/29/24 Previous INR (date and result): 02/29/24 was 3.4 Additional Clinical Information or narrative: INR goal is 2-3. Need to let [facility] outreach lab know when to check INR and call pt with instructions. Call them at [phone] and leave a message. Pt reports findings are negative. documented in this encounter [facility] 03-14-2024 Telephone encounter Note Decrease Coumadin dose 5 mg Thu and . 2.5 mg Sun, Thu, Thu, Thu, and Saturdays. INR in 3 weeks. [facility] 03-14-2024 Telephone encounter Note Patient has been identified by name and date of : Yes, Provider Date 03/14/24 Patient phones for refill(s): Requested Prescriptions Pending Prescriptions Disp Refills warfarin (COUMADIN) 5 mg tablet 60 tablet 5 Sig: Take 5 mg every Sun, Tue, Swapna; 2.5 mg all other days or as directed by [facility] Clinic Date of last office visit in primary care: 11/27/2023 Date of next office visit in primary care: Visit date not found Please advise. Thank you. Shona Goins LPN. [facility] 03-14-2024 Miscellaneous Notes Patient has been identified by name and date of : Yes, Provider Date 03/14/24 Patient phones for refill(s): Requested Prescriptions Pending Prescriptions Disp Refills warfarin (COUMADIN) 5 mg tablet 60 tablet 5 Sig: Take 5 mg every Sun, Tue, Swapna; 2.5 mg all other days or as directed by [facility] Clinic Date of last office visit in primary care: 11/27/2023 Date of next office visit in primary care: Visit date not found Please advise. Thank you. Shona Goins LPN. documented in this encounter [facility] 03-14-2024 Telephone encounter Note Last INR: 3.2 03/14/2024 per [facility] outreach lab Current dose of coumadin is: 5 mg Tue, Thurs, Sat and 2.5 mg Sun, Mon, Wed, Fri. . Last date of dose change: .02/29/24 Previous INR (date and result): 02/29/24 was 3.4 Additional Clinical Information or narrative: INR goal is 2-3. Need to let [facility] outreach lab know when to check INR and call pt with instructions. Call them at [phone] and leave a message. Pt reports findings are negative. [facility] 02-29-2024 Telephone encounter Note Spoke to patient who verbalizes understanding. Called [facility] outreach lab and tracker updated Cece Mackey MA [facility] 02-29-2024 Miscellaneous Notes Spoke to patient who verbalizes understanding. Called [facility] outreach lab and tracker updated Cece Maceky MA Hold today's dose. Resume tomorrow at normal dosing. Recheck in two weeks Edith Power APRN.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 ENGINEER Last INR: INR 3.4 02/29/2024 Current dose of coumadin is: 5 mg Tue, Thurs, Sat and 2.5 mg Sun, Thu, Thu, Thu. . Last date of dose change: 01/05/24. Previous INR (date and result): 02/01/24 2.6 Additional Clinical Information or narrative: INR goal is 2-3. Need to call outreach lab at [facility] at [phone] to let them know when the next INR draw is. Pt findings are negative. documented in this encounter [facility] 02-29-2024 Telephone encounter Note Hold today's dose. Resume tomorrow at normal dosing. Recheck in two weeks Edith Power APRN.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 ENGINEER [facility] 02-29-2024 Telephone encounter Note Last INR: INR 3.4 02/29/2024 Current dose of coumadin is: 5 mg Tue, Thurs, Sat and 2.5 mg Sun, Thu, Thu, Thu. . Last date of dose change: 01/05/24. Previous INR (date and result): 02/01/24 2.6 Additional Clinical Information or narrative: INR goal is 2-3. Need to call outreach lab at [facility] at [phone] to let them know when the next INR draw is. Pt findings are negative. [facility] 02-01-2024 Telephone encounter Note Message left to [facility] lab for next draw. [facility] 02-01-2024 Miscellaneous Notes Message left to [facility] lab for next draw. Pt notified. Tracker updated. Cielo Andrews MA Continue Coumadin dose. INR in 4 weeks. Last INR: 2.6 02/01/2024 Current dose of coumadin is: .5 mg Tue, Thurs, Sat and 2.5 mg Sun, Thu, Thu, Thu. Last date of dose change: 01/05/24. Previous INR (date and result): 01/05/24 was 1.3 Additional Clinical Information or narrative: INR goal is 2-3. Need to call outreach lab at [facility] at [phone] to let them know when the next INR draw is. Pt findings are negative. documented in this encounter [facility] 02-01-2024 Telephone encounter Note Pt notified. Tracker updated. Cielo Andrews MA [facility] 02-01-2024 Telephone encounter Note Continue Coumadin dose. INR in 4 weeks. [facility] 02-01-2024 Telephone encounter Note Last INR: 2.6 02/01/2024 Current dose of coumadin is: .5 mg Tue, Thurs, Sat and 2.5 mg Sun, Thu, Thu, Thu. Last date of dose change: 01/05/24. Previous INR (date and result): 01/05/24 was 1.3 Additional Clinical Information or narrative: INR goal is 2-3. Need to call outreach lab at [facility] at [phone] to let them know when the next INR draw is. Pt findings are negative. [facility] 01-07-2024 Telephone encounter Note Below left on Patient Outreach Lab noreen. Tamia Carson LPN [facility] 01-07-2024 Miscellaneous Notes Below left on Patient Outreach Lab vm. Tamia Carson LPN Document patient refusal. Do standing in INR order in one month. Emma from [facility] Outreach lab calling stating pt had his inr drawn back to back d/t abnormal results. Per message below pt is to recheck in 1 week. She advises that pt is still refusing to do more lab draws for his inr d/t insurance only covering once a month. She is questioning what to do. Please advise can return call to outreach lab [phone]. Alex Sanchez LPN [facility]/Patient Outreach will reach out to Patient for PT/INR draw. Tamia Carson LPN Called pt an reviewed. He reports his insurance will only cover the INR monthly even if it was abnormal. Did not call [facility] out reach yet. THEY STILL NEED NOTIFIED. Restart Coumadin dose. 5 mg Tue, Thurs, Sat and 2.5 mg Sun, Mon, Wed, Fri. INR in 1 week. Last INR: 1.3 01/05/2024 [facility] outreach lab Current dose of coumadin is: HOLDING SINCE 01/01/24 but before that taking 5mg Tues,Thurs,Sat & 2.5mg Sun,Thu,Thu,Thu Last date of dose change: 01/01/24. Previous INR (date and result): 01/01/24 was 4.2 Additional Clinical Information or narrative: INR goal is 2-3. Need to let [facility] Outreach Lab know when the next INR is due. Need to call them at [phone] with this info. documented in this encounter [facility] 01-07-2024 Telephone encounter Note Document patient refusal. Do standing in INR order in one month. [facility] 01-07-2024 Telephone encounter Note Emma from [facility] Outreach lab calling stating pt had his inr drawn back to back d/t abnormal results. Per message below pt is to recheck in 1 week. She advises that pt is still refusing to do more lab draws for his inr d/t insurance only covering once a month. She is questioning what to do. Please advise can return call to outreach lab [phone]. Alex Sanchez LPN [facility] 01-06-2024 Telephone encounter Note [facility]Patient Outreach will reach out to Patient for PT/INR draw. Tamia Carson LPN [facility] 01-05-2024 Telephone encounter Note Called pt an reviewed. He reports his insurance will only cover the INR monthly even if it was abnormal. Did not call [facility] out reach yet. THEY STILL NEED NOTIFIED. [facility] 01-05-2024 Telephone encounter Note Restart Coumadin dose. 5 mg Tue, Thurs, Sat and 2.5 mg Sun, Thu, Thu, Thu. INR in 1 week. [facility] 01-05-2024 Telephone encounter Note Last INR: 1.3 01/05/2024 [facility] outreach lab Current dose of coumadin is: HOLDING SINCE 01/01/24 but before that taking 5mg Tues,Thurs,Sat & 2.5mg Sun,Thu,Thu,Thu Last date of dose change: 01/01/24. Previous INR (date and result): 01/01/24 was 4.2 Additional Clinical Information or narrative: INR goal is 2-3. Need to let [facility] Outreach Lab know when the next INR is due. Need to call them at [phone] with this info. [facility] 01-01-2024 Telephone encounter Note Patient notified. [facility] 01-01-2024 Miscellaneous Notes Patient notified. Hold coumadin till reordered. INR January 03Thursday. Patient s identity has been confirmed by name and birthdate: Yes Call received from Valencia P. with [facility] lab at 11:09 AM to report a critical value for INR with a result of 4.2 done at 10:[address] Saucedo was notified of the result at 11:10 AM. Venus Aguilera Lpn documented in this encounter [facility] 01-01-2024 Telephone encounter Note Hold coumadin till reordered. INR January 03Thursday. [facility] 01-01-2024 Telephone encounter Note Patient s identity has been confirmed by name and birthdate: Yes Call received from Valencia Momin with [facility] lab at 11:09 AM to report a critical value for INR with a result of 4.2 done at 10:[address] Saucedo was notified of the result at 11:10 AM. Venus Aguilera Lpn [facility] 12-10-2023 Telephone encounter Note Printed order faxed. Tamia Carson LPN [facility] 12-10-2023 Miscellaneous Notes Printed order faxed. Tamia Carson LPN Printed. Emma calls to request an order for PT/INR for monthly draws. Emma reports that they need a new order because the weekly order is not being accepted by insurance. Requests it be faxed to [phone]. Pended for review as requested. Jason Cabello RN documented in this encounter [facility] 12-10-2023 Telephone encounter Note Printed. [facility] 12-10-2023 Telephone encounter Note Emma calls to request an order for PT/INR for monthly draws. Emma reports that they need a new order because the weekly order is not being accepted by insurance. Requests it be faxed to [phone]. Pended for review as requested. Jason Cabello RN [facility] 12-04-2023 Telephone encounter Note TC to marcos. No option to LM. Patient has been notified in separate encounter. [facility] 12-04-2023 Miscellaneous Notes TC to marcos. No option to LM. Patient has been notified in separate encounter. [facility]- [facility] Outreach- Reports they go to patient's home to draw INR. The order says once a week (standing order from 07-31-23). Reports patient pays out of pocket, and does not want to do it every week unless they get an abnormal, and needs re-check. Patient agreeable to do monthly INR checks. documented in this encounter [facility] 12-04-2023 Telephone encounter Note Patient notified, tracker updated. [facility] 12-04-2023 Miscellaneous Notes Patient notified, tracker updated. Dose: No Change. Repeat in INR in 1 month. Please see other phone encounter. Okay to change INR to monthly and as needed. Edith Power APRN.WILMER Last INR: INR 2.7(EXT) 12/04/2023 Current dose of coumadin is: 5mg Tues,Thurs,Sat & 2.5mg Sun,Mon,Thu,Thu . Last date of dose change: 09/17/23. Previous INR (date and result): 10/29/23 2.7 Additional Clinical Information or narrative: INR goal is 2-3 \Need to let [facility] Outreach Lab know when the next INR is due. Need to call them at [phone] with this info. documented in this encounter [facility] 12-04-2023 Telephone encounter Note Dose: No Change. Repeat in INR in 1 month. Please see other phone encounter. Okay to change INR to monthly and as needed. Edith Power APRN.WILMER [facility] 12-04-2023 Telephone encounter Note Last INR: INR 2.7(EXT) 12/04/2023 Current dose of coumadin is: 5mg Tues,Thurs,Sat & 2.5mg Sun,Mon,Wed,Fri . Last date of dose change: 09/17/23. Previous INR (date and result): 10/29/23 2.7 Additional Clinical Information or narrative: INR goal is 2-3 \Need to let [facility] Outreach Lab know when the next INR is due. Need to call them at [phone] with this info. [facility] 12-04-2023 Telephone encounter Note [facility]- [facility] Outreach- Reports they go to patient's home to draw INR. The order says once a week (standing order from 07-31-23). Reports patient pays out of pocket, and does not want to do it every week unless they get an abnormal, and needs re-check. Patient agreeable to do monthly INR checks. [facility] 12-03-2023 Telephone encounter Note Emma with [facility] outreach lab calls to report they need a new prescription for PT/INR. Emma asking when lab is to be drawn again. Current order is for every 4 weeks. Faxed order from 07/31/2023. Emma reports they will draw PT/INR tomorrow. Jason Cabello RN [facility] 12-03-2023 Miscellaneous Notes Emma with [facility] outreach lab calls to report they need a new prescription for PT/INR. Emma asking when lab is to be drawn again. Current order is for every 4 weeks. Faxed order from 07/31/2023. Emma reports they will draw PT/INR tomorrow. Jason Cabello RN documented in this encounter [facility] 12-02-2023 Telephone encounter Note called in to see when the nurse was coming next for pt's INR draw. did not know for sure who would be coming. I looked back and saw last draw was [facility] Outreach Lab and gave the phone number to call them and see when they were coming next. Venus Aguilera LPN [facility] 12-02-2023 Miscellaneous Notes called in to see when the nurse was coming next for pt's INR draw. did not know for sure who would be coming. I looked back and saw last draw was [facility] Outreach Lab and gave the phone number to call them and see when they were coming next. Venus Aguilera LPN documented in this encounter [facility] 11-27-2023 Instructions Bebeto Ballesteros APRN.CEMENT 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 - 11/27/2023 3:58 PM EDT For foot and leg swelling: Avoid salty foods, elevate your legs when sitting down and try [id number] compression socks when sitting or standing for prolonged periods (8-15mmHg strength or similar). These are available at most pharmacies. documented in this encounter [facility] 11-27-2023 Note HNO ID: [id number] Author: BEBETO BALLESTEROS APRN.SAÚL Service: ? Author Type: Nurse Specialist Type: Progress Notes Filed: 11/27/2023 17:01 Note Text: SUBJECTIVE: Depression Screening Never done Anxiety Screening Never done Advance Directive Discussion Never done Influenza Vaccine(1) due on 11/08/2023 HPI Osman Jones is a 77 year old male. PMH significant for 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) Cerebral Ventriculomegaly Dizziness prison current use of anticoagulant Obesity, Class I, Bmi 30-34.9 Ischemic Cardiomyopathy Presence of Implantable Cardioverter-Defibrillator (Icd) Abnormality of Gait Nocturia Parkinsonism (Hcc) Presents with SO. States advised by [place] provider to see PCP for skin problem. Today reports he was seen at the [place] provider office on November 18, 2023. Noted that right and left ankles and lower legs were red and swollen. Patient states that they were warm as well. He reports no treatment changes at the time of the visit. States he was advised to follow-up with primary care provider here. On arrival today he notes he has a couple of scabbed over areas on his ankles. No swelling is present in the ankles. Not painful warm or swollen Osman Jones is a 77 year old male who presents with complaint of Review of Systems Constitutional: Negative. Objective BP 133/88 Pulse 68 Temp 37 ?C (98.6 ?F) (Temporal) Resp 20 Physical Exam Vitals and nursing note reviewed. Constitutional: Appearance: Normal appearance. HENT: Head: Normocephalic and atraumatic. Eyes: Conjunctiva/sclera: Conjunctivae normal. Cardiovascular: Rate and Rhythm: Normal rate. Pulmonary: Effort: Pulmonary effort is normal. Skin: General: Skin is warm and dry. Comments: 2 small scabbed areas over right and left ankle, healing, no erythema warmth or swelling is present. Neurological: Mental Status: He is alert. ALLERGIES Allergen Reactions Lisinopril Cough Medication tamsulosin (FLOMAX) 0.4 mg Take 1 capsule by mouth daily at bedtime. cholecalciferol, vitamin D3, (VITAMIN D3 ORAL) Take by mouth. carbidopa-levodopa (SINEMET) 25-100 mg per tablet Take 2 tablets by mouth three times a day. nitroglycerin sublingual (NITROQUICK) 0.4 mg SL tablet Dissolve 1 tablet under the tongue every 5 minutes as needed for chest pain. metoprolol tartrate, short acting, (LOPRESSOR) 25 mg tablet Take 0.5 tablets by mouth two times a day. losartan (COZAAR) 50 mg tablet Take 1 tablet by mouth once daily. spironolactone (ALDACTONE) 25 mg tablet Take 1 tablet by mouth once daily. Dr. Escobar atorvastatin (LIPITOR) 80 mg tablet Take 1 tablet by mouth once daily. Takes 1/2 tab Thu, Thu AND Thursday. 1 tab rest of days warfarin (COUMADIN) 5 mg tablet Take 5 mg every Thu, Thu, Thu; 2.5 mg all other days or as directed by [facility]madin Clinic aspirin(ECOTRIN LOW STRENGTH 81 MG TAB) Take one(1) tablet daily. 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 09/2013: Cardiac cath EF 35-40%. LAD mid-vessel lesion. CABG recommended. Dizziness 04/26/2018 Essential hypertension 10/30/2004 History of agent [place] exposure 1970 Hypertrophy of breast 10/30/2004 Impaired fasting glucose 08/15/2013 Ischemic cardiomyopathy 09/02/2019 LV (left ventricular) mural thrombus following ID ([facility]) 04/23/2017 OBESITY NOS 05/12/2008 Down 7 pounds as of 05-15: gained 4 back as of 08-15 Parkinsonism ([facility]) 07/31/2023 Presence of implantable cardioverter-defibrillator (ICD) 09/02/2019 Pure hypercholesterolemia 10/30/2004 S/P CABG x 2 10/31/2016 CABG on October 22, 2016 at [facility] per Dr. Levin consisting of left internal mammary artery to left anterior descending coronary artery and reverse saphenous vein graft to first obtuse marginal coronary artery. Spondylosis of lumbar region without myelopathy or radiculopathy 02/21/2023 Social History Tobacco Use Smoking status: Former Current packs/day: 0.00 Average packs/day: 0.3 packs/day for 15.0 years (3.8 ttl pk-yrs) Types: Cigarettes Start date: 03/09/1984 Quit date: 03/09/1999 Years since quittin.7 Smokeless tobacco: Never Vaping Use Vaping status: Never Used Substance Use Topics Alcohol use: No Drug use: No ASSESSMENT/PLAN: 1. Rash and nonspecific skin eruption - ICD9: 782.1, ICD10: R21 Recommended continue with this current treatment wash with soap and water and apply antibacterial ointment over scabbed areas until healed. For foot and leg swelling: Avoid salty foods, elevate your legs when sittin (more content not included)... [facility] 11-27-2023 History of Present illness Narrative SUBJECTIVE: Depression Screening Never done Anxiety Screening Never done Advance Directive Discussion Never done Influenza Vaccine(1) due on 11/08/2023 HPI Osman Jones is a 77 year old male. PMH significant for 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) Cerebral Ventriculomegaly Dizziness prison current use of anticoagulant Obesity, Class I, Bmi 30-34.9 Ischemic Cardiomyopathy Presence of Implantable Cardioverter-Defibrillator (Icd) Abnormality of Gait Nocturia Parkinsonism (Hcc) Presents with SO. States advised by [place] provider to see PCP for skin problem. Today reports he was seen at the [place] provider office on November 18, 2023. Noted that right and left ankles and lower legs were red and swollen. Patient states that they were warm as well. He reports no treatment changes at the time of the visit. States he was advised to follow-up with primary care provider here. On arrival today he notes he has a couple of scabbed over areas on his ankles. No swelling is present in the ankles. Not painful warm or swollen Osman Jones is a 77 year old male who presents with complaint of Review of Systems Constitutional: Negative. Objective BP 133/88 Pulse 68 Temp 37 C (98.6 F) (Temporal) Resp 20 Physical Exam Vitals and nursing note reviewed. Constitutional: Appearance: Normal appearance. HENT: Head: Normocephalic and atraumatic. Eyes: Conjunctiva/sclera: Conjunctivae normal. Cardiovascular: Rate and Rhythm: Normal rate. Pulmonary: Effort: Pulmonary effort is normal. Skin: General: Skin is warm and dry. Comments: 2 small scabbed areas over right and left ankle, healing, no erythema warmth or swelling is present. Neurological: Mental Status: He is alert. ALLERGIES Allergen Reactions Lisinopril Cough Medication tamsulosin (FLOMAX) 0.4 mg Take 1 capsule by mouth daily at bedtime. cholecalciferol, vitamin D3, (VITAMIN D3 ORAL) Take by mouth. carbidopa-levodopa (SINEMET) 25-100 mg per tablet Take 2 tablets by mouth three times a day. nitroglycerin sublingual (NITROQUICK) 0.4 mg SL tablet Dissolve 1 tablet under the tongue every 5 minutes as needed for chest pain. metoprolol tartrate, short acting, (LOPRESSOR) 25 mg tablet Take 0.5 tablets by mouth two times a day. losartan (COZAAR) 50 mg tablet Take 1 tablet by mouth once daily. spironolactone (ALDACTONE) 25 mg tablet Take 1 tablet by mouth once daily. Dr. Escobar atorvastatin (LIPITOR) 80 mg tablet Take 1 tablet by mouth once daily. Takes 1/2 tab Thu, Thu & Thursday. 1 tab rest of days warfarin (COUMADIN) 5 mg tablet Take 5 mg every Thu, Thu, Thu; 2.5 mg all other days or as directed by [facility] aspirin(ECOTRIN LOW STRENGTH 81 MG TAB) Take one(1) tablet daily. 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 09/2013: Cardiac cath EF 35-40%. LAD mid-vessel lesion. CABG recommended. Dizziness 04/26/2018 Essential hypertension 10/30/2004 History of agent [place] exposure 1970 Hypertrophy of breast 10/30/2004 Impaired fasting glucose 08/15/2013 Ischemic cardiomyopathy 09/02/2019 LV (left ventricular) mural thrombus following ID ([facility]) 04/23/2017 OBESITY NOS 05/12/2008 Down 7 pounds as of 05-15: gained 4 back as of 08-15 Parkinsonism ([facility]) 07/31/2023 Presence of implantable cardioverter-defibrillator (ICD) 09/02/2019 Pure hypercholesterolemia 10/30/2004 S/P CABG x 2 10/31/2016 CABG on October 22, 2016 at [facility] per Dr. Levin consisting of left internal mammary artery to left anterior descending coronary artery and reverse saphenous vein graft to first obtuse marginal coronary artery. Spondylosis of lumbar region without myelopathy or radiculopathy 02/21/2023 Social History Tobacco Use Smoking status: Former Current packs/day: 0.00 Average packs/day: 0.3 packs/day for 15.0 years (3.8 ttl pk-yrs) Types: Cigarettes Start date: 03/09/1984 Quit date: 03/09/1999 Years since quittin.7 Smokeless tobacco: Never Vaping Use Vaping status: Never Used Substance Use Topics Alcohol use: No Drug use: No ASSESSMENT/PLAN: 1. Rash and nonspecific skin eruption - ICD9: 782.1, ICD10: R21 Recommended continue with this current treatment wash with soap and water and apply antibacterial ointment over scabbed areas until healed. For foot and leg swelling: Avoid salty foods, elevate your legs when sitting down and try [id number] compression socks when sitting or standing for prolonged periods (8-15mmHg strength or similar- [employer] S[employer]if[employer]). These are available at most pharmacies. He will let us know if any recurrence or concerns. Bebeto Ballesteros APRN.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 Medical Decision Making: Problems: Low: Acute, uncomplicated illness or injury Data: Unique source(s) for external note(s) reviewed: 1 Risk: Moderate: Drug management Medical Decision Making Level: 3 - Low documented in this encounter [facility] 10-30-2023 Telephone encounter Note PATIENT NOTIFIED OF SAME. Tracker has been updated. [facility] 10-30-2023 Miscellaneous Notes PATIENT NOTIFIED OF SAME. Tracker has been updated. Continue Coumadin dose. INR in 4 weeks. Last INR: INR 2.7 10/01/2023 Current dose of coumadin is: 5mg Tues,Thurs,Sat & 2.5mg Sun,Mon,Wed,Fri Last date of dose change: 09/17/2023 Previous INR (date and result): 10/01/2023 Additional Clinical Information or narrative: INR goal is 2-3 \Need to let [facility]reach [facility] know when the next INR is due. Need to call them at [phone] with this info. Pt findings are negative Need to call spouse back with instructions at [phone]. Tamia Carson LPN documented in this encounter [facility] 10-29-2023 Telephone encounter Note Continue Coumadin dose. INR in 4 weeks. [facility] 10-29-2023 Telephone encounter Note Last INR: INR 2.7 10/01/2023 Current dose of coumadin is: 5mg Tues,Thurs,Sat & 2.5mg Sun,Thu,Thu,Thu Last date of dose change: 09/17/2023 Previous INR (date and result): 10/01/2023 Additional Clinical Information or narrative: INR goal is 2-3 \Need to let [facility] know when the next INR is due. Need to call them at [phone] with this info. Pt findings are negative Need to call spouse back with instructions at [phone]. Tamia Carson LPN [facility] 10-23-2023 Note HNO ID: [id number] Author: JORDY SAUCEDO MD Service: ? Author Type: Physician Type: Progress Notes Filed: 10/23/2023 12:18 Note Text: This note was created using [employer]. Subjective Osman Jones is a 77 year old male was here with daughter. He continued to have nocturia, frequency, and urgency. Oxybutynin did not help his symptoms. His hypertension was controlled. He saw cardiology and no medication changes were recommended. He saw neurology and was started on medication for Parkinsonism. [facility] and no medication changes were recommended. Carotid US was done and was negative. Review of Systems Constitutional: Negative for fatigue and unexpected weight change. Respiratory: Negative for shortness of breath. Cardiovascular: Positive for leg swelling. Negative for chest pain and palpitations. Gastrointestinal: Negative for abdominal pain and constipation. Genitourinary: Positive for decreased urine volume, frequency and urgency. Negative for difficulty urinating and dysuria. Musculoskeletal: Positive for gait problem. 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 carbidopa-levodopa (SINEMET) 25-100 mg per tablet Take 2 tablets by mouth three times a day. nitroglycerin sublingual (NITROQUICK) 0.4 mg SL tablet Dissolve 1 tablet under the tongue every 5 minutes as needed for chest pain. oxybutynin ER (DITROPAN XL) 10 mg 24 hr tablet Take 1 tablet by mouth every evening. metoprolol tartrate, short acting, (LOPRESSOR) 25 mg tablet Take 0.5 tablets by mouth two times a day. losartan (COZAAR) 50 mg tablet Take 1 tablet by mouth once daily. spironolactone (ALDACTONE) 25 mg tablet Take 1 tablet by mouth once daily. Dr. Escobar atorvastatin (LIPITOR) 80 mg tablet Take 1 tablet by mouth once daily. Takes 1/2 tab Thu, Thu AND Thursday. 1 tab rest of days warfarin (COUMADIN) 5 mg tablet Take 5 mg every Thu, Thu, Thu; 2.5 mg all other days or as directed by [facility] aspirin(ECOTRIN LOW STRENGTH 81 MG TAB) Take one(1) tablet daily. No current facility-administered medications for this visit. Objective BP 128/72 (BP Site: Right Arm, BP Position: Sitting) Pulse (!) 58 Ht 180.3 cm (5' 11) Wt 95.3 kg (210 lb 1.6 oz) SpO2 97% BMI 29.30 kg/m? Physical Exam Constitutional: General: He is not in acute distress. Comments: On wheelchair. HENT: Head: Normocephalic. Cardiovascular: Rate and Rhythm: Normal rate and regular rhythm. Heart sounds: No murmur heard. No gallop. Pulmonary: Breath sounds: Normal breath sounds. Neurological: General: No focal deficit present. Psychiatric: Attention and Perception: Attention normal. Mood and Affect: Affect is flat. Speech: Speech is delayed. Comments: Stuttering speech 10/23/2023 UROL PROSTATE HEALTH MEN OVER 40 INCOMPLETE EMPTYING 0-NOT AT ALL FREQUENCY 3-ABOUT HALF THE TIME INTERMITTENCY 0-NOT AT ALL URGE TO URINATE 4-MORE THAN HALF THE TIME WEAK STREAM 3-ABOUT HALF THE TIME STRAINING 0-NOT AT ALL URINATING AT NIGHT 4-(4) TIMES Total 17 SYMPTOM SCORE 8-19 MODERATE BOTHER SCORE DUE TO URINARY SYMPTOMS 3- MIXED Assessment and Plan 1. Essential hypertension - ICD9: 401.9, ICD10: I10 (primary diagnosis) - Controlled - COMPLETE BLOOD COUNT 2. Impaired fasting glucose - ICD9: 790.21, ICD10: R73.01 - Stable. 3. Atherosclerosis of [place] coronary artery of [place] heart without angina pectoris - ICD9: 414.01, ICD10: I25.10 - Stable. 4. Lower urinary tract symptoms (LUTS) - ICD9: 788.99, ICD10: R39.9 Shared medical decision making was done. - TAMSULOSIN 0.4 MG CAPSULE. Discussed medication dosage, usage, goals of therapy, and side effects. - Discontinue OXYBUTYNIN CHLORIDE. 5. Nocturia - ICD9: 788.43, ICD10: R35.1 See above. - TAMSULOSIN 0.4 MG CAPSULE 6. PURE HYPERCHOLESTEROLEM - ICD9: 272.0, ICD10: E78.00 Controlled. - COMPREHENSIVE METABOLIC PANEL - LIPID PANEL BASIC Jordy Saucedo MD [facility] 10-23-2023 History of Present illness Narrative This note was created using [employer]. Subjective Osman Jones is a 77 year old male was here with daughter. He continued to have nocturia, frequency, and urgency. Oxybutynin did not help his symptoms. His hypertension was controlled. He saw cardiology and no medication changes were recommended. He saw neurology and was started on medication for Parkinsonism. [facility] and no medication changes were recommended. Carotid US was done and was negative. Review of Systems Constitutional: Negative for fatigue and unexpected weight change. Respiratory: Negative for shortness of breath. Cardiovascular: Positive for leg swelling. Negative for chest pain and palpitations. Gastrointestinal: Negative for abdominal pain and constipation. Genitourinary: Positive for decreased urine volume, frequency and urgency. Negative for difficulty urinating and dysuria. Musculoskeletal: Positive for gait problem. 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 carbidopa-levodopa (SINEMET) 25-100 mg per tablet Take 2 tablets by mouth three times a day. nitroglycerin sublingual (NITROQUICK) 0.4 mg SL tablet Dissolve 1 tablet under the tongue every 5 minutes as needed for chest pain. oxybutynin ER (DITROPAN XL) 10 mg 24 hr tablet Take 1 tablet by mouth every evening. metoprolol tartrate, short acting, (LOPRESSOR) 25 mg tablet Take 0.5 tablets by mouth two times a day. losartan (COZAAR) 50 mg tablet Take 1 tablet by mouth once daily. spironolactone (ALDACTONE) 25 mg tablet Take 1 tablet by mouth once daily. Dr. Escobar atorvastatin (LIPITOR) 80 mg tablet Take 1 tablet by mouth once daily. Takes 1/2 tab Thu, Thu & Thursday. 1 tab rest of days warfarin (COUMADIN) 5 mg tablet Take 5 mg every Thu, Thu, Thu; 2.5 mg all other days or as directed by [facility] aspirin(ECOTRIN LOW STRENGTH 81 MG TAB) Take one(1) tablet daily. No current facility-administered medications for this visit. Objective BP 128/72 (BP Site: Right Arm, BP Position: Sitting) Pulse (!) 58 Ht 180.3 cm (5' 11) Wt 95.3 kg (210 lb 1.6 oz) SpO2 97% BMI 29.30 kg/m Physical Exam Constitutional: General: He is not in acute distress. Comments: On wheelchair. HENT: Head: Normocephalic. Cardiovascular: Rate and Rhythm: Normal rate and regular rhythm. Heart sounds: No murmur heard. No gallop. Pulmonary: Breath sounds: Normal breath sounds. Neurological: General: No focal deficit present. Psychiatric: Attention and Perception: Attention normal. Mood and Affect: Affect is flat. Speech: Speech is delayed. Comments: Stuttering speech 10/23/2023 UROL PROSTATE HEALTH MEN OVER 40 INCOMPLETE EMPTYING 0-NOT AT ALL FREQUENCY 3-ABOUT HALF THE TIME INTERMITTENCY 0-NOT AT ALL URGE TO URINATE 4-MORE THAN HALF THE TIME WEAK STREAM 3-ABOUT HALF THE TIME STRAINING 0-NOT AT ALL URINATING AT NIGHT 4-(4) TIMES Total 17 SYMPTOM SCORE 8-19 MODERATE BOTHER SCORE DUE TO URINARY SYMPTOMS 3- MIXED Assessment and Plan 1. Essential hypertension - ICD9: 401.9, ICD10: I10 (primary diagnosis) - Controlled - COMPLETE BLOOD COUNT 2. Impaired fasting glucose - ICD9: 790.21, ICD10: R73.01 - Stable. 3. Atherosclerosis of [place] coronary artery of [place] heart without angina pectoris - ICD9: 414.01, ICD10: I25.10 - Stable. 4. Lower urinary tract symptoms (LUTS) - ICD9: 788.99, ICD10: R39.9 Shared medical decision making was done. - TAMSULOSIN 0.4 MG CAPSULE. Discussed medication dosage, usage, goals of therapy, and side effects. - Discontinue OXYBUTYNIN CHLORIDE. 5. Nocturia - ICD9: 788.43, ICD10: R35.1 See above. - TAMSULOSIN 0.4 MG CAPSULE 6. PURE HYPERCHOLESTEROLEM - ICD9: 272.0, ICD10: E78.00 Controlled. - COMPREHENSIVE METABOLIC PANEL - LIPID PANEL BASIC Jordy Saucedo MD documented in this encounter [facility] 10-02-2023 Telephone encounter Note [facility] outreach notified for next INR in 4 week.s [facility] 10-02-2023 Miscellaneous Notes [facility] outreach notified for next INR in 4 week.s Images from the original note were not included. Jordy Saucedo MD Curren, Janice, LPN; [facility]str [facility] Pool12 hours ago (7:34 PM) Continue Coumadin dose. INR in 4 weeks. Phoned patient and went over coumadin instructions from Dr Saucedo 5 mg , , Thursday and 2.5 mg other days and recheck INR in 4 weeks with understanding. Tracker updated Last INR: 2.7 10/01/2023 per [facility] outreach lab Current dose of coumadin is: Coumadin dose. 5 mg Thu, Thu, Thursday and 2.5 mg Sun, Mon, Thu, Thursday. Last date of dose change: 09/17/23. Previous INR (date and result): 09/17/23 was 2.3 Additional Clinical Information or narrative: INR goal is 2-3 Need to let [facility] outreach lab know when the next INR is due. Need to call them at [phone] with this info. Pt findings are negative. Need to call spouse back 10/02/23 with instructions at [phone]. documented in this encounter [facility] 10-02-2023 Telephone encounter Note Images from the original note were not included. Jordy Saucedo MD Curren, Janice, LPN; [facility] Pool12 hours ago (7:34 PM) Continue Coumadin dose. INR in 4 weeks. Phoned patient and went over coumadin instructions from Dr Saucedo 5 mg , , Thursday and 2.5 mg other days and recheck INR in 4 weeks with understanding. Tracker updated [facility] 10-01-2023 Telephone encounter Note Last INR: 2.7 10/01/2023 per [facility] outreach lab Current dose of coumadin is: Coumadin dose. 5 mg Thu, Thu, Thursday and 2.5 mg Thu, Thu, Thu, Thursday. Last date of dose change: 09/17/23. Previous INR (date and result): 09/17/23 was 2.3 Additional Clinical Information or narrative: INR goal is 2-3 Need to let [facility] outreach lab know when the next INR is due. Need to call them at [phone] with this info. Pt findings are negative. Need to call spouse back 10/02/23 with instructions at [phone]. [facility] 09-30-2023 Telephone encounter Note Forms were faxed to both locations with confirmation. [facility] 09-30-2023 Miscellaneous Notes Forms were faxed to both locations with confirmation. Seen last week with Dr Clayton Please send the office [facility] notes to. . . [facility] : [phone] FAX [phone] Attn B Ankit And to [facility] PH: [phone] FAX: [phone] Attn: documented in this encounter [facility] 09-28-2023 Telephone encounter Note Seen last week with Dr Clayton Please send the office summery notes to. . . [facility] : [phone] FAX [phone] Attn B Ankit And to [facility] PH: [phone] FAX: [phone] Attn: [facility] 09-25-2023 Instructions Sincere Castano MD - 09/25/2023 3:08 PM EDT 1. Check a few labs for potential causes of symptoms (like myasthenia gravis) 2. Let's start a medication called carbidopa/levodopa. It's a symptomatic medication for Parkinson's Disease that helps replace dopamine to improve movement symptoms. Take a half pill three times a day for the first week, then increase to a full pill three times a day. Depending on how you respond you can go up to 1.5 pills three times a day after a few weeks, and then 2 pills three times a day after a few more weeks if no benefit or side effects. It works best when taken before meals, but if you get nauseous when taking it, eating a snack with it (preferably without protein) is ok. Watch out for side effects such as nausea, light-headedness, hallucinations, fatigue, or extra movements (dyskinesia). Breakfast Lunch Dinner Week 1 1/2 1/2 1/2 Week 2-4 1 1 1 Week 5-7 1.5 1.5 1.5 Week 8 and on 2 2 2 You can stop at a lower dose if you feel great on it or have side effects 3. Do physical and speech therapy documented in this encounter [facility] 09-25-2023 History of Present illness Narrative NEW PATIENT EVALUATION Subjective HPI Osman Jones is a 77 year old right-handed male who presents for evaluation of parkinsonism. Dr. Jordy Saucedo MD is the PCP and referring physician. Has had dizziness for 7-8 years, hard to explain what he is feeling when he says dizziness though. This feeling might be present while sitting in a chair. Has dealt with low blood pressure at times. Slurred speech which progresses over the course of the day, better almost normal in the morning. Swallowing is partially impaired, nose runs constantly while eating, feels like there is something in the back of his throat that makes him want to cough, takes a couple minutes to clear. Can barely walk a walker, difficulty lifting his legs to go up stairs. Sudden falls which are hard to predict, tend to be forwards or sideways. Has shuffled for many years, maybe 5 years. Daughter might notice some freezing on initiation. Legs feel like they are 50 pounds, difficult to lift. Denies difficulty with manual dexterity (daughter observes some however). She also notes some daytime tremor. Bottom of his are very sensitive, not really numb or painful. Feet muscles feel like they are sprained almost. Sense of smell has decreased. No constipation or diarrhea, rarely with relationship to diet. No known dream enactment behavior, sleeps on lift chair separate from his , is up all night having to urinate. Mentions that his legs seem to shake at night. Has urinary difficulty. Overnight has to go every couple hours. Unable to get erections for several years though gets a partial one overnight at times. [place]posed to [place] Dad and brother had dizziness and falls in their 80s. 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 Medications: Current Outpatient Medications Medication Sig Dispense Refill cholecalciferol, vitamin D3, (VITAMIN D3 ORAL) Take by mouth. nitroglycerin sublingual (NITROQUICK) 0.4 mg SL tablet Dissolve 1 tablet under the tongue every 5 minutes as needed for chest pain. 25 tablet 1 oxybutynin ER (DITROPAN XL) 10 mg 24 hr tablet Take 1 tablet by mouth every evening. 30 tablet 0 metoprolol tartrate, short acting, (LOPRESSOR) 25 mg tablet Take 0.5 tablets by mouth two times a day. 90 tablet 3 losartan (COZAAR) 50 mg tablet Take 1 tablet by mouth once daily. 90 tablet 3 spironolactone (ALDACTONE) 25 mg tablet Take 1 tablet by mouth once daily. Dr. Escoabr 90 tablet 3 atorvastatin (LIPITOR) 80 mg tablet Take 1 tablet by mouth once daily. Takes 1/2 tab Thu, Thu & Thursday. 1 tab rest of days 90 tablet 3 warfarin (COUMADIN) 5 mg tablet Take 5 mg every Thu, Thu, Thu; 2.5 mg all other days or as directed by [facility] 60 tablet 3 aspirin(ECOTRIN LOW STRENGTH 81 MG TAB) Take one(1) tablet daily. 0 No current facility-administered medications for this visit. ROS ROS: His ROS was positive for that mentioned in the HPI. Otherwise a 10-point ROS was completed and was negative. 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 09/2013: Cardiac cath EF 35-40%. LAD mid-vessel lesion. CABG recommended. Dizziness 04/26/2018 Essential hypertension 10/30/2004 Hypertrophy of breast 10/30/2004 Impaired fasting glucose 08/15/2013 Ischemic cardiomyopathy 09/02/2019 LV (left ventricular) mural thrombus following ID (HCC) 04/23/2017 OBESITY NOS 05/12/2008 Down 7 pounds as of 05-15: gained 4 back as of 08-15 Presence of implantable cardioverter-defibrillator (ICD) 09/02/2019 Pure hypercholesterolemia 10/30/2004 S/P CABG x 2 10/31/2016 CABG on October 22, 2016 at [facility] per Dr. Levin consisting of left internal mammary artery to left anterior descending coronary artery and reverse saphenous vein graft to first obtuse marginal coronary artery. Spondylosis of lumbar region without myelopathy or radiculopathy 02/21/2023 Family History: FAMILY HISTORY Problem Relation Age of Onset Hypertension Mother cardiac arrest age 80 None Father age 89 other (abdominal aneurysm) Father Hypertension Brother other (Age related debility) Brother Dad and brother had dizziness and falls in their 80s. Social History: Social History Tobacco Use Smoking status: Former Packs/day: 0.25 Years: 15.00 Additional pack years: 0.00 Total pack years: 3.75 Types: Cigarettes Quit date: 03/09/1999 Years since quittin.5 Smokeless tobacco: Never Vaping Use Vaping Use: Never used Substance Use Topics Alcohol use: No Drug use: No No significant alcohol use Objective 09/25/23 1359 BP: 134/81 BP Site: Left Arm BP Position: Sitting BP Cuff Size: Regular Adult Pulse: (!) 58 SpO2: 97% Weight: 99.8 kg (220 lb) Height: 180.3 cm (5' 11) Physical Examination General Appearance: Well appearing, alert, in no acute distress, well-hydrated, well nourished. Head: Normocephalic Neck: Supple Heart: RRR Peripheral Pulses: Normal Neurologic Examination Mental Status: He is alert. Reg 3/3 TVG. 09/25/23, fri, age 77, WORLD -> DLROW, naming and repetition intact, DR 3/3. Affect is appropriate. Cranial Nerves: Pupils are equal and reactive to light. Extraocular movements show full and smooth pursuits. No nystagmus. Able to perform saccades. Visual elizalde are full to confrontation. Facial sensation is intact. Facial activation is symmetric. Hearing is intact to conversation. There is mild hypomimia. There is mild hypophonia. There is mild dysarthria. Tongue is midline. Palate elevates symmetrically. Shoulder shrug is normal. Motor: Muscle bulk is normal. Muscle power is full. Mild bradykinesia with FT only L>R, otherwise normal. No tremor. No rigidity. Sensory: Intact to fine touch and vibration. Reflex: Biceps and brachioradialis is 2+ bilaterally. Patellar reflex 2+ bilaterally. Ankle jerks 1+ bilaterally. Agudelo negative. Coordination: Minimal end point dysmetria, heel lynn stable, rapid movements subtly incoordinated. Gait/station: Stands with use of his hands. Here in a wheelchair without his walker. Can take a few steps with my assistance, very short stride length and decreased clearance, somewhat magnetic in appearance, feet mildly wider apart. DATA REVIEWED Actual films/image/tracing reviewed and summarized as follows: MRI Brain 12/21/17 mild-mod atrophy both central and cortical, mild WM changes Old records reviewed and summarized as follows: Reviewed PCP referral records MRI L-spine 02.23.23 up to mod central stenosis CK 69, TSH 1.99, A1c 5.4 Assessment/Plan Assessment & Plan: Osman Jones is a 77 year old right-handed male who presents for evaluation of gait impairment. His examination demonstrates subtle parkinsonism, more severe gait impairment of mixed appearance, intact cognition, normal sensation, and subtle dysmetria. We discussed his presentation at length. 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 Some ataxic and parkinsonian features. Will do a levodopa trial as high as 2 pills TID, discussed potential side effect. Consider repeat imaging. Old scan not that NPH looking to me, could consider atypical conditions, mild ataxic features could suggest MSA. Placed order for PT and [employer]. They note clear diurnal variation to slurred speech, will check myasthenia antibodies just in case. He should return to see me in 4 months. I spent 70 minutes with the patient, >50% of that time was devoted to counseling and coordination of care regarding the above issues. Sincere Castano MD [facility] Neurology documented in this encounter [facility] 09-17-2023 Telephone encounter Note Patient notified of new Coumadin dose, read back. Anticoag Tracker updated. Msg left on [facility] outreach lab notified of next draw date. Tamia Carson LPN [facility] 09-17-2023 Miscellaneous Notes Patient notified of new Coumadin dose, read back. Anticoag Tracker updated. Msg left on [facility] outreach lab notified of next draw date. Tamia Carson LPN New Coumadin dose. 5 mg Tue, Thu, Thursday and 2.5 mg Sun, Thu, Thu, Thursday. INR in 2 weeks. Last INR: 2.3 09/17/2023 from [facility] outreach lab Current dose of coumadin is: . Holding coumadin since 09/15/23 before that was taking 5mg Sun,Tues, Thurs,Sat and 2.5mg Thu Last date of dose change: 09/15/23. Previous INR (date and result): 09/15/23 was 4.13 Additional Clinical Information or narrative: INR goal is 2-3 Need to let [facility] outreach lab know when the next INR draw is due. Call them with this info at [phone]. documented in this encounter [facility] 09-17-2023 Telephone encounter Note New Coumadin dose. 5 mg Tue, Swapna, Thursday and 2.5 mg Sun, Thu, Thu, Thursday. INR in 2 weeks. [facility] 09-17-2023 Telephone encounter Note Last INR: 2.3 09/17/2023 from [facility] outreach lab Current dose of coumadin is: . Holding coumadin since 09/15/23 before that was taking 5mg Sun,Tues, Thurs,Sat and 2.5mg Thu Last date of dose change: 09/15/23. Previous INR (date and result): 09/15/23 was 4.13 Additional Clinical Information or narrative: INR goal is 2-3 Need to let [facility] outreach lab know when the next INR draw is due. Call them with this info at [phone]. [facility] 09-15-2023 Telephone encounter Note Osman notified, verbalized understanding. Spoke to [facility] outreach [phone] notified that next INR draw is 09/17/2023. Anticoag Tracker updated. Tamia Carson LPN [facility] 09-15-2023 Miscellaneous Notes Osman notified, verbalized understanding. Spoke to [facility] outreach [phone] notified that next INR draw is 09/17/2023. Anticoag Tracker updated. Tamia Carson LPN Hold coumadin till reordered. INR on 09/17/23. Jing from [facility] Lab calls with critical INR of 4.13. Last INR: INR 4.13 (ext) 09/15/2023 Current dose of coumadin is: 5 mg on Sun, Tue, Swapna, and Sat. 2.5 mg on Thu, Thu, and Thursday. Last date of dose change: . 08/04/2023 Previous INR (date and result): 3.0 08/18/2023 per [facility] Home Draw Additional Clinical Information or narrative: yes: No changes in diet, medication. No bleeding or bruising noted. documented in this encounter [facility] 09-15-2023 Telephone encounter Note Hold coumadin till reordered. INR on 09/17/23. [facility] 09-15-2023 Telephone encounter Note Jing from [facility] Lab calls with critical INR of 4.13. Last INR: INR 4.13 (ext) 09/15/2023 Current dose of coumadin is: 5 mg on Sun, Tue, Swapna, and Sat. 2.5 mg on Thu, Thu, and Thursday. Last date of dose change: . 08/04/2023 Previous INR (date and result): 3.0 08/18/2023 per [facility] Home Draw Additional Clinical Information or narrative: yes: No changes in diet, medication. No bleeding or bruising noted. [facility] 08-18-2023 Telephone encounter Note Pt notified and called [facility] home and message left with next INR due. [facility] 08-18-2023 Miscellaneous Notes Pt notified and called [facility] home and message left with next INR due. Continue with Coumadin dose unchanged and check INR in 4 weeks Last INR: 3.0 08/18/2023 per [facility] homedraw Current dose of coumadin is: 5 mg on Sun, Tue, Swapna, and Sat. 2.5 mg on Thu, Thu, and Thursday Last date of dose change: 08/04/23. Previous INR (date and result): 07/31/23 was 1.5 Additional Clinical Information or narrative: INR goal is 2-3 Will need to let [facility] outreach know when to draw INR call the at [phone] Or fax them when the next draw is due at [phone] Also will need to let the pt know. He reports he had been stable for a year with previous dose. documented in this encounter [facility] 08-18-2023 Telephone encounter Note Continue with Coumadin dose unchanged and check INR in 4 weeks [facility] 08-18-2023 Telephone encounter Note Last INR: 3.0 08/18/2023 per [facility] homedraw Current dose of coumadin is: 5 mg on Thu, Thu, Swapna, and Sat. 2.5 mg on Thu, Thu, and Thursday Last date of dose change: 08/04/23. Previous INR (date and result): 07/31/23 was 1.5 Additional Clinical Information or narrative: INR goal is 2-3 Will need to let [facility] outreach know when to draw INR call the at [phone] Or fax them when the next draw is due at [phone] Also will need to let the pt know. He reports he had been stable for a year with previous dose. [facility] 08-13-2023 Telephone encounter Note Pt's daughter notified. She will pick this up in medical records. It will be there by 10 am. [facility] 08-13-2023 Miscellaneous Notes Pt's daughter notified. She will pick this up in medical records. It will be there by 10 am. Letter revised. Osman's daughter Pavithra called stating that the letter that Dr. Saucedo had written on 07/31/2023 needs addendum with the earliest dates of Osman's dx listed on letter. [facility] not [facility] without the dates. Please call Pavithra once completed. documented in this encounter [facility] 08-12-2023 Telephone encounter Note Letter revised. [facility] 08-10-2023 Telephone encounter Note Osman's daughter Pavithra called stating that the letter that Dr. Saucedo had written on 07/31/2023 needs addendum with the earliest dates of Osman's dx listed on letter. [facility] not [facility] the letter without the dates. Please call Pavithra once completed. [facility] 08-10-2023 Telephone encounter Note Two copies printed, Pavithra/daughter notified, letter will be in Medical Records for pickup. Tamia Carson LPN [facility] 08-10-2023 Miscellaneous Notes Two copies printed, Pavithra/daughter notified, letter will be in Medical Records for pickup. Tamia Carson LPN Patient's daughter calling to request two copies of [facility] to [facility] written on 07/31/23. She will picker tender in Medical Records Dept. Please let her know when she can do this. Adelita Moreno RN documented in this encounter [facility] 08-10-2023 Telephone encounter Note Patient's daughter calling to request two copies of [facility] written on 07/31/23. She will picker tender in Medical Records Dept. Please let her know when she can do this. Adelita Moreno RN [facility] 08-04-2023 Telephone encounter Note Called to [facility] outreach. They did not get the faxed order from Thursday. Will fax again. Called pt and reviewed new coumadin dose. [facility] 08-04-2023 Miscellaneous Notes Called to [facility] outreach. They did not get the faxed order from Thursday. Will fax again. Called pt and reviewed new coumadin dose. INR goal 2 to 3. Increase Coumadin dose. 5 mg on Thu, Thu, Thu, and Sat. 2.5 mg on Thu, Thu, and Thursday. INR in 2 weeks. Last INR: 1.5 07/31/2023 Current dose of coumadin is: . Last date of dose change: unknown Previous INR (date and result): 02/13/23 was 3.1 Additional Clinical Information or narrative: Called pt and pt findings are negative. INR goal? What is the INR goal? We can enter it in the anti coag episode to pull in when this is done. Will need to let [facility] outreach know when to draw INR call the at [phone]. This order was just faxed to them Thursday07/31/23 documented in this encounter [facility] 08-04-2023 Telephone encounter Note INR goal 2 to 3. Increase Coumadin dose. 5 mg on Thu, Thu, Thu, and Sat. 2.5 mg on Thu, Thu, and Thursday. INR in 2 weeks. [facility] 08-04-2023 Telephone encounter Note Last INR: 1.5 07/31/2023 Current dose of coumadin is: . Last date of dose change: unknown Previous INR (date and result): 02/13/23 was 3.1 Additional Clinical Information or narrative: Called pt and pt findings are negative. INR goal? What is the INR goal? We can enter it in the anti coag episode to pull in when this is done. Will need to let [facility] outreach know when to draw INR call the at [phone]. This order was just faxed to them Thursday07/31/23 [facility] 07-31-2023 Instructions Jordy Saucedo MD - 07/31/2023 2:17 PM EDT Stop amlodipine. Bladder medication in the evening. Blood work today. documented in this encounter [facility] 07-31-2023 History of Present illness Narrative This note was created using NoteWriter. Subjective Patient presents with: F/U 6 months: Patient needs a letter from PCP for : heart disease with details of patient's problems, high blood pressure,parkinsonism Osman Jones is a 77 year old male here with daughter Brandy. He had not followed up since he was discharged from [facility] on 04/15/23. He was still getting his medications and had coumadin on hand from medications not used during his hospital and [place] [facility] stay. He was initially admitted 02/21- 02/28 for intractable low back pain after falling on his tailbone at home. He was seen by Dr. Hwang for orthopedic consultation and with his MRI showing no acute process, pain management was recommended. His pain improved, and pain medications were discontinued at [facility] for lack of use. He was discharged home ambulating on his walker, but was homebound and resisted following up until now. Attempts to find a home visiting physician and to set up coumadin monitoring at home by machine were not successful. He denied any bleeding, and his hypertension was reportedly running low often enough during his [place] [facility] stay his hypertension medications were often held. He was also taken off warfarin during his [facility] stay since the indication was not clear, but resumed warfarin when he got back home. He had a similar admission in January 2022 where he was admitted for falls and discharged to an ECF. He did not follow for months until 2022, reason given pertinent to being homebound. He was referred to [facility] in 2019, and there was concern for normal pressure hydrocephalus. He did not pursue neurosurgery referral. He reported he went for a second opinion with [facility] in [place], Dr. Jurado who reportedly advised him procedure was not necessary. His main concern was chronic nocturia and urgency. [facility] to reflect conditions that could be related to his agent orange exposure decades ago. Review of Systems Constitutional: Negative for appetite change, fatigue and unexpected weight change. HENT: Negative. Eyes: Negative for visual disturbance. Respiratory: Negative for shortness of breath. Cardiovascular: Positive for leg swelling. Negative for chest pain and palpitations. Gastrointestinal: Negative for abdominal pain, constipation, diarrhea, nausea and vomiting. Genitourinary: Positive for frequency and urgency. Negative for decreased urine volume, difficulty urinating, dysuria and enuresis. Musculoskeletal: Positive for gait problem. Negative for back pain. Neurological: Positive for tremors, weakness and light-headedness. Negative for dizziness, syncope, numbness and headaches. 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 losartan (COZAAR) 50 mg tablet Take 1 tablet by mouth once daily. amLODIPine (NORVASC) 5 mg tablet Take 1 tablet by mouth once daily. spironolactone (ALDACTONE) 25 mg tablet Take 1 tablet by mouth once daily. Dr. Escobar atorvastatin (LIPITOR) 80 mg tablet Take 1 tablet by mouth once daily. Takes 1/2 tab Thu, Thu & Thursday. 1 tab rest of days warfarin (COUMADIN) 5 mg tablet Take 5 mg every Thu, e, Swapna; 2.5 mg all other days or as directed by Coumadin Clinic nitroglycerin sublingual (NITROQUICK) 0.4 mg SL tablet Dissolve 1 tablet under the tongue every 5 minutes as needed for Chest Pain. aspirin(ECOTRIN LOW STRENGTH 81 MG TAB) Take one(1) tablet daily. No current facility-administered medications for this visit. Objective BP 122/76 (BP Site: Right Arm, BP Position: Sitting, BP Cuff Size: Large Adult) Pulse (!) 59 Temp 36.8 C (98.3 F) Resp 14 Ht 180.3 cm (5' 11) SpO2 99% BMI 31.60 kg/m Physical Exam Constitutional: General: He is not in acute distress. Appearance: He is obese. Comments: Wheelchair bound. HENT: Head: Normocephalic. Nose: Nose normal. Mouth/Throat: Mouth: Mucous membranes are moist. Pharynx: Oropharynx is clear. Eyes: Extraocular Movements: Extraocular movements intact. Conjunctiva/sclera: Conjunctivae normal. Cardiovascular: Rate and Rhythm: Normal rate and regular rhythm. Heart sounds: No murmur heard. No gallop. Pulmonary: Breath sounds: Normal breath sounds. Abdominal: General: There is no distension. Palpations: Abdomen is soft. Tenderness: There is no abdominal tenderness. Musculoskeletal: Cervical back: Neck supple. No tenderness. Right lower le+ Pitting Edema present. Left lower le+ Pitting Edema present. Skin: Findings: No rash. Comments: No sacral decubitus. Neurological: General: No focal deficit present. Mental Status: He is alert. Mental status is at baseline. Cranial Nerves: No dysarthria or facial asymmetry. Sensory: No sensory deficit. Motor: Weakness, tremor and abnormal muscle tone present. No atrophy or pronator drift. Deep Tendon Reflexes: Reflexes are normal and symmetric. Comments: Patient able to stand up in place. Gait was not tested due to risk. Intention tremors of both feet. Subtle cog-wheeling. Bradykinesia. Psychiatric: Attention and Perception: He does not perceive auditory or visual hallucinations. Mood and Affect: Affect is flat. Speech: Speech is delayed. Behavior: Behavior is cooperative. Assessment and Plan 1. Atherosclerosis of [place] coronary artery of [place] heart without angina pectoris - ICD9: 414.01, ICD10: I25.10 (primary diagnosis) Stable. Daughter indicated a long overdue cardiology [facility]. - NITROGLYCERIN 0.4 MG SUBLINGUAL TABLET 2. Nocturia - ICD9: 788.43, ICD10: R35.1 Discussed medication dosage, usage, goals of therapy, and side effects. Trial medication and call for refills if effective. - OXYBUTYNIN CHLORIDE ER 10 MG TABLET,EXTENDED RELEASE 24 HR - URINALYSIS, WITH MICROSCOPIC 3. Parkinsonism, unspecified Parkinsonism type (HCC) - ICD9: 332.0, ICD10: G20.C Reevaluate questions of gait, and HPI. - CONSULT TO NEUROLOGY - Letter completed. 4. Essential hypertension - ICD9: 401.9, ICD10: I10 - Patient reported frequent low blood pressures while in the ECF. - Continue medications, except discontinue AMLODIPINE. 5. Abnormality of gait - ICD9: 781.2, ICD10: R26.9 - CONSULT TO NEUROLOGY 6. 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 He will follow up with cardiology as well. Check labs today. - COMPLETE BLOOD COUNT - BASIC METABOLIC PANEL - PROTHROMBIN TIME 7. Cerebral ventriculomegaly - ICD9: 348.89, ICD10: G93.89 - CONSULT TO NEUROLOGY 8. Need for COVID-19 vaccine - ICD9: V04.89, ICD10: Z23 - PFIZER-BIONTECH COVID-19 VACCINE ( SEASON) AGE 12+ YR 9. 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 Ischemic cardiomyopathy - ICD9: 414.8, ICD10: I25.5 Stable. - PROTHROMBIN TIME Jordy Saucedo MD documented in this encounter [facility] 07-31-2023 Nurse Note Information needs to go to [place] [facility]Parwaiz Sheikh [facility] [address] [place] [address] FAx# [phone] [facility] 07-31-2023 Nurse Note Information needs to go to [place] Dr.Parwaiz Sheikh [facility] [place] [id number] FAx# [phone] documented in this encounter [facility] 07-27-2023 Telephone encounter Note Patient has been identified by name and date of : Patient phones for refill(s): Requested Prescriptions Pending Prescriptions Disp Refills metoprolol tartrate, short acting, (LOPRESSOR) 25 mg tablet 90 tablet 3 Sig: Take 0.5 tablets by mouth two times a day. losartan (COZAAR) 50 mg tablet 90 tablet 3 Sig: Take 1 tablet by mouth once daily. amLODIPine (NORVASC) 5 mg tablet 90 tablet 3 Sig: Take 1 tablet by mouth once daily. spironolactone (ALDACTONE) 25 mg tablet 90 tablet 1 Sig: Take 1 tablet by mouth once daily. Dr. Escobar atorvastatin (LIPITOR) 80 mg tablet 90 tablet 3 Sig: Take 1 tablet by mouth once daily. Takes 1/2 tab Thu, Thu & Thursday. 1 tab rest of days Date of last office visit in primary care: 02/13/2023 Date of next office visit in primary care: 07/31/2023 Patient Please advise. Thank you. Mary Randle. [facility] 07-27-2023 Miscellaneous Notes Patient has been identified by name and date of : Patient phones for refill(s): Requested Prescriptions Pending Prescriptions Disp Refills metoprolol tartrate, short acting, (LOPRESSOR) 25 mg tablet 90 tablet 3 Sig: Take 0.5 tablets by mouth two times a day. losartan (COZAAR) 50 mg tablet 90 tablet 3 Sig: Take 1 tablet by mouth once daily. amLODIPine (NORVASC) 5 mg tablet 90 tablet 3 Sig: Take 1 tablet by mouth once daily. spironolactone (ALDACTONE) 25 mg tablet 90 tablet 1 Sig: Take 1 tablet by mouth once daily. Dr. Escobar atorvastatin (LIPITOR) 80 mg tablet 90 tablet 3 Sig: Take 1 tablet by mouth once daily. Takes 1/2 tab Thu, Thu & Thursday. 1 tab rest of days Date of last office visit in primary care: 02/13/2023 Date of next office visit in primary care: 07/31/2023 Patient Please advise. Thank you. Mary Randle. documented in this encounter [facility] 05-21-2023 Miscellaneous Notes Pharm Phone Call follow up. Email sent to [facility] requesting update. On , he had stated he did not receive any orders but has requested info on [facility] status. Will await response. Angelica Miramontes CPhT (Market Research Consultant) [facility] Pharm Phone Call follow up. Per TE w/ PCPs office: Shona Goins LPN JC 05/13/23 9:14 AM Note Faxed to [facility]. 05/13/23 8:59 AM Jordy Saucedo MD routed this conversation to Shona Goins LPN Velasquez, Victor H, MD 05/13/23 8:59 AM [facility]. May 12, 2023 JUAN 05/12/23 8:43 AM Shona Goins LPN routed this conversation to Jordy Saucedo MD May 08, 2023 Shona Goins LPN JC 05/08/23 2:00 PM Note rec'd order for home INR from [facility]. To pcp to complete. Appears [facility] is involved, not sure if patient's insurance requires [facility] or not. Email sent to [facility] rep for update on patient's status. PPC date adjusted. Angelica Miramontes CPhT ([employer] Research Consultant) [facility]acy [facility] Corinne with [facility] calls to report she is sending forms for Home INR meter and requesting demographics and chart notes. Noted below and notified spouse Aure. Aure reports she is not certain who she is going to get meter through but requests nothing be sent to [facility] at this time. Information not faxed. Aure to call back with further instructions. Jason Cabello RN Dr. Saucedo, The Pharmacy [facility]ticoagulation Clinic is in need of PAF that requires MD signature to continue home INR meter enrollment. The PAF can be found under the scanned documents tab in the patient's chart dated 05/07/2023. The PAF may be printed from there and once signed can be faxed back to the Pharmacy Anticoagulation Clinic at [phone]. Please let me know if you have any questions. Thank you, Jackson Valladares, Market Research Consultant ([facility]) Pharmacy Anticoagulation Clinic Per 03/04 encounter patient's spouse is interested in home inr meter enrollment. PAF generated for [facility]. Jackson Valladares, Market Research Consultant ([facility]) Pharmacy Anticoagulation Clinic documented in this encounter [facility] 05-13-2023 Miscellaneous Notes Corinne with [facility] calling. Received order for patient's Home INR. Corinne requesting pt demographic information as well as recent chart notes. Faxed as requested to [phone] Jackie Horner RN documented in this encounter [facility] 05-13-2023 Miscellaneous Notes Faxed to [facility]. Form for [facility] completed. rec'd order for home INR from [facility]. To pcp to complete. Sw let spouse know about [facility] not accepting [place]. Spouse notes that she will see about son in law being able to bring patient to an appt. Spouse notes that son in law works so would have to work out a time feasible to have his assistance. Spouse also notes that she is checking with [facility] to see about in home INR check with patient new insurance. Aure notes that she will let Dr. Saucedo know what further assistance is needed after checking on above. They called back and they do not take any [employer] insurance. Message left for someone at [place] to return call to a nurse.(Can transfer to [place]) [facility] Enrollment code 106 Ph. [phone] Nimo spoke with Aure regarding patient care concerns. Aure reports that patient at this time is very limited with mobility. Only using walker to go from the bed to bathroom and back to bed. Aure notes it would be very difficult to bring him in to office for visit. Nimo discussed [facility](formerly [facility]) and in home physician, lab, radiology services. Aure reports that she would be open to referral to [facility], but is very concerned with cost. Aure reports that patient is paying around a $1,000 a month for health insurance. Aure asking if we refer patient to [facility] if we could ask them to run patient insurance and be able to see how much it would be for visit. Nimo noted that she could send message to Dr. Saucedo and nurse to see about sending them [facility] member number and patient demographic and request if they could provide some kind of pricing. [employer] ph. [phone]. They have a satellite office in [place]. Spouse notes that if unable to receive some sort of pricing from [employer], would have to locate someone that could bring patient in to office for a visit. I don't understand why discharge summary indicated he was ambulatory with walker, but he cannot come here for follow up. If patient not planning or unable to follow up here due to situation, refer to the provider group doing primary prison visits as mentioned by Meg. They can be primary care until he is able to reestablish care here. Records have been rec'd from [facility]. Pt was admitted there and discharged from 02/28/23 to 04/15/23. Called pt to arrange for appt in office with pcp. Pt says he is home bound. He is unable to complete a virtual visit. He was office lab draw from [facility] with the lab homebound service but he has had a change in insurance. He doesn't know if this would be covered. Asked if he could send a copy of his insurance cards to pcp via my chart. He doesn't think he can do this. Will see if vp digital marketing social media and crm has any thoughts to help with pt. documented in this encounter [facility] 04-22-2023 Miscellaneous Notes Spoke to his , Aure. He is on warfarin still taking 5mg SunTuTh and 2.5mg all other days. Recently discharged from SNF. He said he is not really mobile. He is having his contact [facility]. They will the PAC to let us know. Eli Rosa, PharmD, CACP Spoke to his Aure, who said he is still in the SNF and probably will be there through the 1st or 2nd week in April. She asked that we call back after that. Eli Rosa PharmD, CACP [facility] Spoke to Aure, his . She said he is still in the SNF and she doesn't know anything about his discharge yet. She said to try back in about 2 weeks to check his status. Eli Rosa PharmD, CACP PATIENT CALL Patient called call center regarding Pt in SNF. Patient's spouse called and stated patient is currently in SNF and they were told he'd most likely be there for about 5 weeks. Spouse agreeable to f/u in 3 weeks to see if this is still the plan. Patient added to LTC list. Angelica Miramontes ([employer]cker) documented in this encounter [facility] 02-28-2023 Discharge summary Note Date/Time February 28, 2023 1:02pm [facility] Medical Records Department [address] [place] [address] Transfer to [facility] MR#: [id number] Acct: [id number] Name: OSMAN JONES Tobin Rep #:[id number] : 1945 77 From: Ashwin riddle MD PCP: Dr. Jordy Saucedo MD Status:A DM IN Certification of patient admission REQUIRED AT TIME OF ADMISSION. I CERTIFY THAT POST-HOSPITAL ECF SERVICES ARE REQUIRED TO BE GIVEN ON AN IN-PATIENT BASIS BECAUSE OF THE ABOVE NAMED PATIENT'S NEED FOR HALFWAY CARE ON A CONTINUING BASIS FOR THE CONDITION(S) FOR WHICH HE/SHE WAS RECEIVING IN-PATIENT HOSPITAL SERVICES PRIOR TO HIS/HER TRANSFER TO THE F. 02/28/23 1304<Electronically signed by Ashwin Long MD> Diet Diet Order/Speech Therapy: 02/20/23 14:16 Diet: Cardiac - Heart Healthy Food consistency:: Regular Liquid Consistency:: Regular/Thin Is pt able to select menu?: Yes Routine Orders/Code Status Routine Lab Work: CBC and BMP Code Status: Full Code Wound(s) b/l knees: Wound Type: Abrasion Therapies Physical Therapy: Eval and Treat Occupational Therapy: Eval and Treat Problem/Diagnosis (1) Intractable low back pain: Status: Acute Code(s): M54.59 - Other low back pain Plan 1. Intractable low back pain with recent fall, history of recurrent falls, generalized weakness Difficult to determine degree of acute versus chronic back pain for patient. Known history of recurrent falls, uses 4-point walker at home. CT L-spine showsdiffuse posterior disc bulge at L4-5, mild lumbar central canal stenosis, multilevel degenerative changes. No previous L-spine imaging. Notably no loss of bowel or bladder function, no radiculopathy. ? Orthopedic surgery following. Patient appears to have DISH on imaging. Okay for MRI L-spine while inpatient, with orthopedic surgery follow-up outpatient. Unfortunately, with patient's ICD he will not be able to have the MRI done untilMonday. Continue lidocaine patch and oxycodone as needed for pain management. PT/OT/case management following, likely home with home health care versus SNF ondischarge. 02/23/2023: MRI pending for today continue with pain management 02/24/2023: MRI is unremarkable, no surgical intervention per orthopedic surgery, will have PT/OT evaluate him possible for SNF placement if he continuesto have significant pain otherwise he will need to follow-up with pain management as an outpatient 02/25/2023: No change from baseline he is little bit more active today sitting in the chair and walking around his room with a walker 02/26/2023: Will obtain orthostatic vital signs continue with PT/OT 02/27/2023: Orthostatic vital signs are unremarkable. Initiated prednisone therapy to help with any inflammation awaiting SNF selection and initiation of pre-CERT 02/28/2023: Continue with steroids 2. Reported presyncopal symptoms; history of CAD s/p CABG, ischemic cardiomyopathy, history of ventricular thrombus Previously followed with Dr. Escobar with cardiology, last office visit in August 2021. History of CABG x 2 in 2017 done at [facility]. Last echo in 03/2019 showed persistently decreased EF of 35%, moderate segmental systolic dysfunction, left ventricular apical thrombus. Patient has been on Coumadin since then for the apical thrombus. Had single-chamber ICD placed in 04/2019. Patient reports going out at times without warning. On discussion with patient and family, seems like patient has some lightheadedness and dizziness when going from sitting to standing. Echo on 02/21 showed EF 45%, stage I diastolic dysfunction, large size apical, septal and anteroseptal wall motion abnormality with hypokinesis of the segments; mild improvement from previous. ? Patient denied presyncopal symptoms with getting up to work with PT/OT on 02/21. Have not completed orthostatic vital signs to this point but blood pressure has remained stable throughout admission. Patient with normal sinus rhythm on telemetry, no abnormalities noted. Will hold off on ICD interrogationat this time. Continue all home medications as normal. Recommended to patient that he reestablish with cardiology in the office after discharge. Chronic medical conditions: ? Hypertension: Continue home amlodipine, losartan, Lopressor. ? Hyperlipidemia: Continue home statin. DVT: Coumadin Allergies/Procedures Done in Hospital Allergies No Known Allergies Allergy (Verified 02/20/23 08:57) Procedures: None Type of Care/Length of Stay Estimated LOS: Convalescent Care Less Than 30 days Type of Care Needed: Skilled Rehab Potential: Good Prognosis: Good Additional Orders/Day of Discharge Day of Discharge: 02/28/23 Dietary and Speech Recommendations Dietitian Recommendations/Changes: cardiac diet as tolerated Discharge Plan Admission Admit Date/Time: 02/21/23 18:22 Attending Provider: Ashwin Long Primary Care Provider: Jordy Saucedo Consulting Providers: Rajiv Hwang; Noé Cruz Discharge Orders/Prescriptions Prescriptions: New oxycodone 5 mg Tablet 5 mg PO Q4H PRN PRN (Reason: Pain Score 6-10) 3 Days Qty: 10 0RF prednisone 20 mg Tablet 40 mg PO BREAKFAST 10 Days Qty: 0 0RF Continued aspirin [Adult Aspirin Regimen] 81 mg tablet,delayed release (DR/EC) 81 mg PO DAILY metoprolol tartrate 25 mg tablet 12.5 mg PO BID Qty: 60 atorvastatin 80 mg tablet 40 mg PO MOWEFR Qty: 30 warfarin 5 mg tablet 5 mg PO SUTUTH Qty: 30 nitroglycerin 0.4 mg tablet, sublingual 0.4 mg SUBLINGUAL Q5-15M PRN (Reason: chest pain) Qty: 25 1RF losartan 50 mg tablet 50 mg PO DAILY atorvastatin 80 mg tablet 80 mg PO SUTUTHSA amlodipine 5 mg tablet 5 mg PO DAILY warfarin 5 mg tablet 2.5 mg PO MOWEFRSA Deep Sea Nasal 0.65 % Aerosol,[place] 2 spray NASAL Q4H PRN PRN (Reason: NASAL DRYNESS) Qty: 0 0RF sennosides-docusate sodium [Stool Softener-Stimulant Laxat] 8.6-50 mg Tablet 2 tab PO BID PRN PRN (Reason: Constipation) Qty: 0 0RF lidocaine 5 % Adhesive Patch,Medicated 1 patch topical DAILY Qty: 0 0RF Hold Instructions: Pt has been DC'd Protocol: *Topical Application Instructions APPLICATION INSTRUCTIONS: 12 hours on 12 hours off spironolactone [Aldactone] 25 mg tablet 25 mg PO DAILY Referrals / Follow Up: Jordy Saucedo MD [Primary Care Provider] - Disposition Disposition (needs filled in before D/C Order can be placed): [facility] 02/28/23 1304 <Electronically signed by Ashwin Long MD> Cosigner Signature (if applicable): CC: Dr. Noé Cruz, ; Dr. Rajiv Hwang, ; Dr. Jordy Saucedo MD ~ [facility] Work Phone: 1(553) 955-354812-23-2023 Progress note Author Ashwin Long [facility] February 28, 2023 10:14am Note Date/Time February 28, 2023 10:14am [facility] Medical Records Department [address] [place] [address] Progress Note - Hospitalist 02/28/23 1013 MR#: [id number] Acct: [id number] Name: OSMAN JONES Rep #:[id number] : 1945 77 From: Ashwin riddle MD PCP: Dr. Jordy Saucedo MD Status:A DM IN Location: MS3 [id number] Subjective Subjective Doing well, no issues overnight continues to have back pain but steroids seem anh improving little bit Objective Data Objective Data Vital Signs: Vital Signs Temp Pulse Resp BP Pulse Ox O2 Del Method 97.6 F L 97 18 158/88 H 94 Room Air 02/28/23 09:35 02/28/23 09:35 02/28/23 09:35 02/28/23 09:35 02/28/23 09:35 02/28/23 09:37 Oxygen Delivery Method Room Air Weight: 202 lb 15.991 oz Body Mass Index (BMI) 27.5 Intake & Output: Intake and Output for Last 24 Hours 02/27/23 02/28/23 03/01/23 03:59 03:59 03:59 Output Total 200 / 200 750 / 750 300 / 300 Balance -200 / -200 -750 / -750 -300 / -300 Lab / Micro Data 02/26/23 05:30 02/26/23 05:30 Labs: Laboratory Results - last 24 hr 02/28/23 06:23: PT 30.4 H, INR 2.9 Physical Exam Narrative General: Alert, Oriented x3, Cooperative, No apparent distress HEENT: Atraumatic, PERRLA, EOMI, Normocephalic Oral: Moist Mucosa Neck: Supple, No JVD Lungs: Clear to auscultation, Normal air movement, No rhonchi, No wheeze, No rales Cardiovascular: Regular rate, Regular Rhythm, Normal S1, Normal S2, No murmurs Abdomen: Soft, Non Tender, Non-Distended, No Hepato-splenomegaly Extremities: No edema, Capillary Refill Less than 3 Seconds Skin: No rashes, No breakdown Musculoskeletal: No Tenderness to Palpation of Joints or Extremities, no significant pain response to palpation of the spine Neurological: Cranial nerves II-XII grossly intact, Motor Exam 5/5 strength throughout, Sensory exam intact to light touch and pain Psych/Mental Status: Normal Affect, Appropriate Assessment & Plan Assessment/Plan (1) Intractable low back pain: PLAN: Plan 1. Intractable low back pain with recent fall, history of recurrent falls, generalized weakness Difficult to determine degree of acute versus chronic back pain for patient. Known history of recurrent falls, uses 4-point walker at home. CT L-spine showsdiffuse posterior disc bulge at L4-5, mild lumbar central canal stenosis, multilevel degenerative changes. No previous L-spine imaging. Notably no loss of bowel or bladder function, no radiculopathy. ? Orthopedic surgery following. Patient appears to have DISH on imaging. Okay for MRI L-spine while inpatient, with orthopedic surgery follow-up outpatient. Unfortunately, with patient's ICD he will not be able to have the MRI done untilMond. Continue lidocaine patch and oxycodone as needed for pain management. PT/OT/case management following, likely home with home health care versus SNF ondischarge. 02/23/2023: MRI pending for today continue with pain management 02/24/2023: MRI is unremarkable, no surgical intervention per orthopedic surgery, will have PT/OT evaluate him possible for SNF placement if he continuesto have significant pain otherwise he will need to follow-up with pain management as an outpatient 02/25/2023: No change from baseline he is little bit more active today sitting in the chair and walking around his room with a walker 02/26/2023: Will obtain orthostatic vital signs continue with PT/OT 02/27/2023: Orthostatic vital signs are unremarkable. Initiated prednisone therapy to help with any inflammation awaiting SNF selection and initiation of pre-CERT 02/28/2023: Continue with steroids 2. Reported presyncopal symptoms; history of CAD s/p CABG, ischemic cardiomyopathy, history of ventricular thrombus Previously followed with Dr. Escobar with cardiology, last office visit in August 2021. History of CABG x 2 in 2017 done at [facility]. Last echo in 03/2019 showed persistently decreased EF of 35%, moderate segmental systolic dysfunction, left ventricular apical thrombus. Patient has been on Coumadin since then for the apical thrombus. Had single-chamber ICD placed in 04/2019. Patient reports going out at times without warning. On discussion with patient and family, seems like patient has some lightheadedness and dizziness when going from sitting to standing. Echo on 02/21 showed EF 45%, stage I diastolic dysfunction, large size apical, septal and anteroseptal wall motion abnormality with hypokinesis of the segments; mild improvement from previous. ? Patient denied presyncopal symptoms with getting up to work with PT/OT on 02/21. Have not completed orthostatic vital signs to this point but blood pressure has remained stable throughout admission. Patient with normal sinus rhythm on telemetry, no abnormalities noted. Will hold off on ICD interrogationat this time. Continue all home medications as normal. Recommended to patient that he reestablish with cardiology in the office after discharge. Chronic medical conditions: ? Hypertension: Continue home amlodipine, losartan, Lopressor. ? Hyperlipidemia: Continue home statin. DVT: Coumadin Charges/Coding Visit Charges Inpatient E&M: 04039 Subs Hosp L2 02/28/23 1014 <Electronically signed by Ashwin Long MD> Cosigner Signature (if applicable): CC: ~ Signed [facility] Work Phone: 1(775) 529-312212-22-2023 Progress note Author Ashwin Long [facility] February 27, 2023 12:50pm Note Date/Time February 27, 2023 12:43pm [facility] Medical Records Department [address] [place] [address] Progress Note - Hospitalist 02/27/23 1243 MR#: [id number] Acct: [id number] Name: OSMAN JONES Rep #:[id number] : 1945 77 From: Ashwin riddle MD PCP: Dr. Jordy Saucedo MD Status:A DM IN Location: [place] [id number] Subjective Subjective Continues to endorse back pain without any neurological issues. Denies ever having syncope he just has drop attacks but he remains conscious this been goingon for more than a year Objective Data Objective Data Vital Signs: Vital Signs Temp Pulse Resp BP Pulse Ox O2 Del Method 98.8 F 91 16 137/81 H 96 Room Air 02/27/23 08:55 02/27/23 09:00 02/27/23 08:55 02/27/23 08:55 02/27/23 08:55 02/27/23 08:55 Oxygen Delivery Method Room Air Weight: 202 lb 15.991 oz Body Mass Index (BMI) 27.5 Intake & Output: Intake and Output for Last 24 Hours 02/26/23 02/27/23 02/28/23 03:59 03:59 03:59 Intake Total 60 / 60 Output Total 200 / 200 200 / 200 250 / 250 Balance -140 / -140 -200 / -200 -250 / -250 Lab / Micro Data 02/26/23 05:30 02/26/23 05:30 Physical Exam Narrative General: Alert, Oriented x3, Cooperative, No apparent distress HEENT: Atraumatic, PERRLA, EOMI, Normocephalic Oral: Moist Mucosa Neck: Supple, No JVD Lungs: Clear to auscultation, Normal air movement, No rhonchi, No wheeze, No rales Cardiovascular: Regular rate, Regular Rhythm, Normal S1, Normal S2, No murmurs Abdomen: Soft, Non Tender, Non-Distended, No Hepato-splenomegaly Extremities: No edema, Capillary Refill Less than 3 Seconds Skin: No rashes, No breakdown Musculoskeletal: No Tenderness to Palpation of Joints or Extremities, no significant pain response to palpation of the spine Neurological: Cranial nerves II-XII grossly intact, Motor Exam 5/5 strength throughout, Sensory exam intact to light touch and pain Psych/Mental Status: Normal Affect, Appropriate Assessment & Plan Assessment/Plan (1) Intractable low back pain: PLAN: Plan 1. Intractable low back pain with recent fall, history of recurrent falls, generalized weakness Difficult to determine degree of acute versus chronic back pain for patient. Known history of recurrent falls, uses 4-point walker at home. CT L-spine showsdiffuse posterior disc bulge at L4-5, mild lumbar central canal stenosis, multilevel degenerative changes. No previous L-spine imaging. Notably no loss of bowel or bladder function, no radiculopathy. ? Orthopedic surgery following. Patient appears to have DISH on imaging. Okay for MRI L-spine while inpatient, with orthopedic surgery follow-up outpatient. Unfortunately, with patient's ICD he will not be able to have the MRI done untilMonday. Continue lidocaine patch and oxycodone as needed for pain management. PT/OT/case management following, likely home with home health care versus SNF ondischarge. 02/23/2023: MRI pending for today continue with pain management 02/24/2023: MRI is unremarkable, no surgical intervention per orthopedic surgery, will have PT/OT evaluate him possible for SNF placement if he continuesto have significant pain otherwise he will need to follow-up with pain management as an outpatient 02/25/2023: No change from baseline he is little bit more active today sitting in the chair and walking around his room with a walker 02/26/2023: Will obtain orthostatic vital signs continue with PT/OT 02/27/2023: Orthostatic vital signs are unremarkable. Initiated prednisone therapy to help with any inflammation awaiting SNF selection and initiation of pre-CERT 2. Reported presyncopal symptoms; history of CAD s/p CABG, ischemic cardiomyopathy, history of ventricular thrombus Previously followed with Dr. Escobar with cardiology, last office visit in August 2021. History of CABG x 2 in 2017 done at [facility]. Last echo in 03/2019 showed persistently decreased EF of 35%, moderate segmental systolic dysfunction, left ventricular apical thrombus. Patient has been on Coumadin since then for the apical thrombus. Had single-chamber ICD placed in 04/2019. Patient reports going out at times without warning. On discussion with patient and family, seems like patient has some lightheadedness and dizziness when going from sitting to standing. Echo on 02/21 showed EF 45%, stage I diastolic dysfunction, large size apical, septal and anteroseptal wall motion abnormality with hypokinesis of the segments; mild improvement from previous. ? Patient denied presyncopal symptoms with getting up to work with PT/OT on 02/21. Have not completed orthostatic vital signs to this point but blood pressure has remained stable throughout admission. Patient with normal sinus rhythm on telemetry, no abnormalities noted. Will hold off on ICD interrogationat this time. Continue all home medications as normal. Recommended to patient that he reestablish with cardiology in the office after discharge. Chronic medical conditions: ? Hypertension: Continue home amlodipine, losartan, Lopressor. ? Hyperlipidemia: Continue home statin. DVT: Coumadin Charges/Coding Visit Charges Inpatient E&M: 38531 Subs Hosp L2 02/27/23 1250 <Electronically signed by Ashwin Long MD> Cosigner Signature (if applicable): CC: ~ Signed [facility] Work Phone: 1(730) 671-104012-21-2023 Progress note Author Ashwin Long [facility] February 26, 2023 10:22am Note Date/Time February 26, 2023 10:22am [facility] Medical Records Department [address] [place] [address] Progress Note - Hospitalist 02/26/23 1020 MR#: [id number] Acct: [id number] Name: OSMAN JONES Rep #:[id number] : 1945 77 From: Ashwin riddle MD PCP: Dr. Jordy Saucedo MD Status:A DM IN Location: MS3 AQ472-4 Subjective Subjective Still having low back pain without any neurological disease. States that he still has dizziness, will obtain orthostatics Objective Data Objective Data Vital Signs: Vital Signs Temp Pulse Resp BP Pulse Ox O2 Del Method 97.6 F L 68 14 126/78 H 98 Room Air 02/26/23 09:35 02/26/23 09:35 02/26/23 09:35 02/26/23 09:35 02/26/23 09:35 02/26/23 09:35 Oxygen Delivery Method Room Air Weight: 202 lb 15.991 oz Body Mass Index (BMI) 27.5 Intake & Output: Intake and Output for Last 24 Hours 02/25/23 02/26/23 02/27/23 03:59 03:59 03:59 Intake Total 900 / 900 60 / 60 Output Total 1300 / 1300 200 / 200 200 / 200 Balance -400 / -400 -140 / -140 -200 / -200 Lab / Micro Data 02/26/23 05:30 02/26/23 05:30 Labs: Laboratory Results - last 24 hr 02/25/23 10:49: POC Glucose 173 H 02/26/23 05:30: WBC 10.3, RBC 5.12, Hgb 15.2, Hct 46.8, MCV 91.4, MCH 29.7, MCHC32.5, RDW Std Deviation 43.1, RDW Coeff of Jil 13.0, Plt Count 199, MPV 11.4, Immature Gran % (Auto) 0.500, Neut % (Auto) 72.0 H, Lymph % (Auto) 14.5 L, [place] % (Auto) 10.5 H, Eos % (Auto) 1.6, Baso % (Auto) 0.9, Absolute Neuts (auto) 7.4,Absolute Lymphs (auto) 1.50, Nucleated RBC % 0, PT 25.1 H, INR 2.3, Sodium 141, Potassium 3.9, Chloride 111 H, Carbon Dioxide 24.0, Anion Gap 6, BUN 16, Creatinine 0.81, Estim Creat Clear Calc 83.83, Est GFR (MDRD) Af Amer 119, Est GFR (MDRD) Non-Af 99, BUN/Creatinine Ratio 19.8, Glucose 106, Calcium 8.4 L Physical Exam Narrative General: Alert, Oriented x3, Cooperative, No apparent distress HEENT: Atraumatic, PERRLA, EOMI, Normocephalic Oral: Moist Mucosa Neck: Supple, No JVD Lungs: Clear to auscultation, Normal air movement, No rhonchi, No wheeze, No rales Cardiovascular: Regular rate, Regular Rhythm, Normal S1, Normal S2, No murmurs Abdomen: Soft, Non Tender, Non-Distended, No Hepato-splenomegaly Extremities: No edema, Capillary Refill Less than 3 Seconds Skin: No rashes, No breakdown Musculoskeletal: No Tenderness to Palpation of Joints or Extremities, no significant pain response to palpation of the spine Neurological: Cranial nerves II-XII grossly intact, Motor Exam 5/5 strength throughout, Sensory exam intact to light touch and pain Psych/Mental Status: Normal Affect, Appropriate Assessment & Plan Assessment/Plan (1) Intractable low back pain: PLAN: Plan 1. Intractable low back pain with recent fall, history of recurrent falls, generalized weakness Difficult to determine degree of acute versus chronic back pain for patient. Known history of recurrent falls, uses 4-point walker at home. CT L-spine showsdiffuse posterior disc bulge at L4-5, mild lumbar central canal stenosis, multilevel degenerative changes. No previous L-spine imaging. Notably no loss of bowel or bladder function, no radiculopathy. ? Orthopedic surgery following. Patient appears to have DISH on imaging. Okay for MRI L-spine while inpatient, with orthopedic surgery follow-up outpatient. Unfortunately, with patient's ICD he will not be able to have the MRI done untilMonday. Continue lidocaine patch and oxycodone as needed for pain management. PT/OT/case management following, likely home with home health care versus SNF ondischarge. 02/23/2023: MRI pending for today continue with pain management 02/24/2023: MRI is unremarkable, no surgical intervention per orthopedic surgery, will have PT/OT evaluate him possible for SNF placement if he continuesto have significant pain otherwise he will need to follow-up with pain management as an outpatient 02/25/2023: No change from baseline he is little bit more active today sitting in the chair and walking around his room with a walker 02/26/2023: Will obtain orthostatic vital signs continue with PT/OT 2. Reported presyncopal symptoms; history of CAD s/p CABG, ischemic cardiomyopathy, history of ventricular thrombus Previously followed with Dr. Escobar with cardiology, last office visit in August 2021. History of CABG x 2 in 2017 done at [facility]. Last echo in 03/2019 showed persistently decreased EF of 35%, moderate segmental systolic dysfunction, left ventricular apical thrombus. Patient has been on Coumadin since then for the apical thrombus. Had single-chamber ICD placed in 04/2019. Patient reports going out at times without warning. On discussion with patient and family, seems like patient has some lightheadedness and dizziness when going from sitting to standing. Echo on 02/21 showed EF 45%, stage I diastolic dysfunction, large size apical, septal and anteroseptal wall motion abnormality with hypokinesis of the segments; mild improvement from previous. ? Patient denied presyncopal symptoms with getting up to work with PT/OT on 02/21. Have not completed orthostatic vital signs to this point but blood pressure has remained stable throughout admission. Patient with normal sinus rhythm on telemetry, no abnormalities noted. Will hold off on ICD interrogationat this time. Continue all home medications as normal. Recommended to patient that he reestablish with cardiology in the office after discharge. Chronic medical conditions: ? Hypertension: Continue home amlodipine, losartan, Lopressor. ? Hyperlipidemia: Continue home statin. DVT: Coumadin Charges/Coding Visit Charges Inpatient E&M: 58733 Subs Hosp L2 02/26/23 1022 <Electronically signed by Ashwin Long MD> Cosigner Signature (if applicable): CC: ~ Signed [facility] Work Phone: 1(445) 591-159912-20-2023 Progress note Author Ashwin Long [facility] February 25, 2023 1:10pm Note Date/Time February 25, 2023 1:10pm [facility] Medical Records Department [address] [place] [address] Progress Note - Hospitalist 02/25/23 1309 MR#: [id number] Acct: [id number] Name: OSMAN JONES Rep #:[id number] : 1945 77 From: Ashwin riddle MD PCP: Dr. Jordy Saucedo MD Status:A DM IN Location: MS3 [id number] Subjective Subjective No issues overnight, pain appears to be improving though he states it still bad he is actually out of bed and ambulating. Has some dizziness though blood pressures are normal and blood sugars are normal at the time of his stated dizziness Objective Data Objective Data Vital Signs: Vital Signs Temp Pulse Resp BP Pulse Ox O2 Del Method 98.3 F 82 18 121/69 H 98 Room Air 02/25/23 10:55 02/25/23 10:55 02/25/23 10:55 02/25/23 10:55 02/25/23 10:55 02/25/23 10:55 Oxygen Delivery Method Room Air Weight: 202 lb 15.991 oz Body Mass Index (BMI) 27.5 Intake & Output: Intake and Output for Last 24 Hours 02/24/23 02/25/23 02/26/23 03:59 03:59 03:59 Intake Total 640 / 640 900 / 900 60 / 60 Output Total 725 / 725 1300 / 1300 200 / 200 Balance -85 / -85 -400 / -400 -140 / -140 Lab / Micro Data 02/24/23 06:16 02/24/23 06:16 Labs: Laboratory Results - last 24 hr 02/25/23 06:01: PT 26.6 H, INR 2.4 02/25/23 10:49: POC Glucose 173 H Physical Exam Narrative General: Alert, Oriented x3, Cooperative, No apparent distress HEENT: Atraumatic, PERRLA, EOMI, Normocephalic Oral: Moist Mucosa Neck: Supple, No JVD Lungs: Clear to auscultation, Normal air movement, No rhonchi, No wheeze, No rales Cardiovascular: Regular rate, Regular Rhythm, Normal S1, Normal S2, No murmurs Abdomen: Soft, Non Tender, Non-Distended, No Hepato-splenomegaly Extremities: No edema, Capillary Refill Less than 3 Seconds Skin: No rashes, No breakdown Musculoskeletal: No Tenderness to Palpation of Joints or Extremities, no significant pain response to palpation of the spine Neurological: Cranial nerves II-XII grossly intact, Motor Exam 5/5 strength throughout, Sensory exam intact to light touch and pain Psych/Mental Status: Normal Affect, Appropriate Assessment & Plan Assessment/Plan (1) Intractable low back pain: PLAN: Plan 1. Intractable low back pain with recent fall, history of recurrent falls, generalized weakness Difficult to determine degree of acute versus chronic back pain for patient. Known history of recurrent falls, uses 4-point walker at home. CT L-spine showsdiffuse posterior disc bulge at L4-5, mild lumbar central canal stenosis, multilevel degenerative changes. No previous L-spine imaging. Notably no loss of bowel or bladder function, no radiculopathy. ? Orthopedic surgery following. Patient appears to have DISH on imaging. Okay for MRI L-spine while inpatient, with orthopedic surgery follow-up outpatient. Unfortunately, with patient's ICD he will not be able to have the MRI done untilMonday. Continue lidocaine patch and oxycodone as needed for pain management. PT/OT/case management following, likely home with home health care versus SNF ondischarge. 02/23/2023: MRI pending for today continue with pain management 02/24/2023: MRI is unremarkable, no surgical intervention per orthopedic surgery, will have PT/OT evaluate him possible for SNF placement if he continuesto have significant pain otherwise he will need to follow-up with pain management as an outpatient 02/25/2023: No change from baseline he is little bit more active today sitting in the chair and walking around his room with a walker 2. Reported presyncopal symptoms; history of CAD s/p CABG, ischemic cardiomyopathy, history of ventricular thrombus Previously followed with Dr. Escobar with cardiology, last office visit in August 2021. History of CABG x 2 in 2017 done at [facility]. Last echo in 03/2019 showed persistently decreased EF of 35%, moderate segmental systolic dysfunction, left ventricular apical thrombus. Patient has been on Coumadin since then for the apical thrombus. Had single-chamber ICD placed in 04/2019. Patient reports going out at times without warning. On discussion with patient and family, seems like patient has some lightheadedness and dizziness when going from sitting to standing. Echo on 02/21 showed EF 45%, stage I diastolic dysfunction, large size apical, septal and anteroseptal wall motion abnormality with hypokinesis of the segments; mild improvement from previous. ? Patient denied presyncopal symptoms with getting up to work with PT/OT on 02/21. Have not completed orthostatic vital signs to this point but blood pressure has remained stable throughout admission. Patient with normal sinus rhythm on telemetry, no abnormalities noted. Will hold off on ICD interrogationat this time. Continue all home medications as normal. Recommended to patient that he reestablish with cardiology in the office after discharge. Chronic medical conditions: ? Hypertension: Continue home amlodipine, losartan, Lopressor. ? Hyperlipidemia: Continue home statin. DVT: Coumadin Charges/Coding Visit Charges Inpatient E&M: 71605 Subs Hosp L2 02/25/23 1310 <Electronically signed by Ashwin Long MD> Cosigner Signature (if applicable): CC: ~ Signed [facility] Work Phone: 1([phone]) 102-130712-19-2023 Progress note Author Ashwin Long [facility] February 24, 2023 10:48am Note Date/Time February 24, 2023 10:48am [facility] Medical Records Department [address] [place] [id number] Progress Note - Hospitalist 02/24/23 1046 MR#: [id number] Acct: [id number] Name: OSMAN JONES Rep #:[id number] : 1945 77 From: Ashwin riddle MD PCP: Dr. Jordy Saucedo MD Status:A DM IN Location: [place] [id number] Subjective Subjective Continues to have low back pain, MRI was negative for fracture or anything that would require surgical intervention acutely Objective Data Objective Data Vital Signs: Vital Signs Temp Pulse Resp BP Pulse Ox O2 Del Method 97.9 F 68 17 125/69 H 95 Room Air 02/24/23 09:39 02/24/23 09:58 02/24/23 09:39 02/24/23 09:39 02/24/23 09:39 02/24/23 09:39 Oxygen Delivery Method Room Air Weight: 202 lb 15.991 oz Body Mass Index (BMI) 27.5 Intake & Output: Intake and Output for Last 24 Hours 02/23/23 02/24/23 02/25/23 03:59 03:59 03:59 Intake Total 800 / 800 640 / 640 Output Total 1025 / 1025 725 / 725 500 / 500 Balance -225 / -225 -85 / -85 -500 / -500 Lab / Micro Data 02/24/23 06:16 02/24/23 06:16 Labs: Laboratory Results - last 24 hr 02/24/23 06:16: WBC 7.7, RBC 4.89, Hgb 14.7, Hct 44.7, MCV 91.4, MCH 30.1, MCHC 32.9, RDW Std Deviation 43.9, RDW Coeff of Jil 13.2, Plt Count 142 L, MPV 11.9, Immature Gran % (Auto) 0.300, Neut % (Auto) 64.2, Lymph % (Auto) 21.2, [place] % (Auto) 11.2 H, Eos % (Auto) 2.3, Baso % (Auto) 0.8, Absolute Neuts (auto) 5.0, Absolute Lymphs (auto) 1.64, Nucleated RBC % 0, Differential Comment SCANNED, PT30.2 H, INR 2.8, Sodium 142, Potassium 3.7, Chloride 111 H, Carbon Dioxide 25.0,Anion Gap 6, BUN 17, Creatinine 0.75, Estim Creat Clear Calc 67.90, Est GFR (MDRD) Af Amer 129, Est GFR (MDRD) Non-Af 107, BUN/Creatinine Ratio 22.5 H, Glucose 98, Calcium 8.2 L Radiography Diagnostic Testing: Radiology Impression Lumbar Spine MRI 02/23/23 06:00 IMPRESSION: 1. Multilevel degenerative changes, as described above. 2. 3.2 cm abdominal aortic aneurysm. Electronically Signed: Dmitri Comer MD at 17:11 EST , Physical Exam Narrative General: Alert, Oriented x3, Cooperative, No apparent distress HEENT: Atraumatic, PERRLA, EOMI, Normocephalic Oral: Moist Mucosa Neck: Supple, No JVD Lungs: Clear to auscultation, Normal air movement, No rhonchi, No wheeze, No rales Cardiovascular: Regular rate, Regular Rhythm, Normal S1, Normal S2, No murmurs Abdomen: Soft, Non Tender, Non-Distended, No Hepato-splenomegaly Extremities: No edema, Capillary Refill Less than 3 Seconds Skin: No rashes, No breakdown Musculoskeletal: No Tenderness to Palpation of Joints or Extremities Neurological: Cranial nerves II-XII grossly intact, Motor Exam 5/5 strength throughout, Sensory exam intact to light touch and pain Psych/Mental Status: Normal Affect, Appropriate Assessment & Plan Assessment/Plan (1) Intractable low back pain: PLAN: Plan 1. Intractable low back pain with recent fall, history of recurrent falls, generalized weakness Difficult to determine degree of acute versus chronic back pain for patient. Known history of recurrent falls, uses 4-point walker at home. CT L-spine showsdiffuse posterior disc bulge at L4-5, mild lumbar central canal stenosis, multilevel degenerative changes. No previous L-spine imaging. Notably no loss of bowel or bladder function, no radiculopathy. ? Orthopedic surgery following. Patient appears to have DISH on imaging. Okay for MRI L-spine while inpatient, with orthopedic surgery follow-up outpatient. Unfortunately, with patient's ICD he will not be able to have the MRI done untilMonday. Continue lidocaine patch and oxycodone as needed for pain management. PT/OT/case management following, likely home with home health care versus SNF ondischarge. 02/23/2023: MRI pending for today continue with pain management 02/24/2023: MRI is unremarkable, no surgical intervention per orthopedic surgery, will have PT/OT evaluate him possible for SNF placement if he continues to have significant pain otherwise he will need to follow-up with pain management as an outpatient 2. Reported presyncopal symptoms; history of CAD s/p CABG, ischemic cardiomyopathy, history of ventricular thrombus Previously followed with Dr. Escobar with cardiology, last office visit in August 2021. History of CABG x 2 in 2017 done at [facility]. Last echo in 03/2019 showed persistently decreased EF of 35%, moderate segmental systolic dysfunction, left ventricular apical thrombus. Patient has been on Coumadin since then for the apical thrombus. Had single-chamber ICD placed in 04/2019. Patient reports going out at times without warning. On discussion with patient and family, seems like patient has some lightheadedness and dizziness when going from sitting to standing. Echo on 02/21 showed EF 45%, stage I diastolic dysfunction, large size apical, septal and anteroseptal wall motion abnormality with hypokinesis of the segments; mild improvement from previous. ? Patient denied presyncopal symptoms with getting up to work with PT/OT on 02/21. Have not completed orthostatic vital signs to this point but blood pressure has remained stable throughout admission. Patient with normal sinus rhythm on telemetry, no abnormalities noted. Will hold off on ICD interrogationat this time. Continue all home medications as normal. Recommended to patient that he reestablish with cardiology in the office after discharge. Chronic medical conditions: ? Hypertension: Continue home amlodipine, losartan, Lopressor. ? Hyperlipidemia: Continue home statin. DVT: Coumadin Charges/Coding Visit Charges Inpatient E&M: 99344 Subs Hosp L2 02/24/23 1048 <Electronically signed by Ashwin Long MD> Cosigner Signature (if applicable): CC: ~ Signed [facility] Work Phone: 1(352) 173-820512-18-2023 History and physical note Author Noé Cruz [facility] February 23, 2023 3:44pm Note Date/Time February 20, 2023 11:32am [facility] Medical Records Department [address] [place] [address] H&P Exam - Hospitalist 02/20/23 1126 MR#: [id number] Acct: [id number] Name: OSMAN JONES Rep #:[id number] : 1945 77 From: Noé main DO PCP: Dr. Jordy Saucedo MD Status:A DM IN [place] [facility] [id number] HPI - General General Date of Admission: 02/21/23 Date of Service: 02/20/23 Chief Complaint: Intractable back pain HPI Narrative OSMAN JONES, is a 77 M who presented to [facility] ED on 02/20/2023 with worsening low back pain. Patient seen at bedside, and daughter present. Patient was laying flat in bed, did not move much during our encounter. Patient states that he had a fall onto his tailbone on Thursday and has had worsening low back pain since then. Was so bad this morning that he could not get out of bed without severe pain and family brought him to the ED for further evaluation. Patient states that he continues to have severe low back pain with any movement. He denies any loss of bowel or bladder function. Denies any significant radiation of pain down his legs. Patient has a history of recurrent falls. Uses a 4-point walker at home at baseline. Has been using the walker for about the last year. Patient and family note that he was hospitalized at [facility] around this time last year for a COVID infection and had difficulty working with therapy at that time. He was discharged to [facility] and spent several weeks there before being ableto go home. Patient and family state he has small falls at home fairly frequently. Patient denies any history of significant low back pain. Patient does note that with some of these episodes, he feels like he goes out and doesnot remember what happened. Family is unable to tell me if he actually passes out with these episodes. Patient does have a history of ischemic cardiomyopathywith ICD in place since 2019. Previously followed with Dr. Escobar with cardiology, last saw his office in August 2021. Has been on the same medications at same doses since that time. Patient does seem to report worsening dizziness and lightheadedness when going from sitting to standing at baseline. Patient otherwise denies any recent illnesses. Denies any fevers or chills. Denies anyother pain or discomfort at this time. No other acute concerns. [facility] Medical History Atherosclerotic heart disease of [place] coronary artery without angina pectoris Bilateral carotid artery stenosis Coronary-myocardial bridge Essential hypertension Facial laceration Fall Fatigue History of myocardial infarction Ischemic cardiomyopathy Left ventricular apical thrombus Pure hypercholesterolemia Home Medications aspirin 81 mg tablet,delayed release (Adult Aspirin Regimen) 81 mg PO DAILY heart health 10/25/18 [History Last Taken 2 Days Ago ~01/19/22] metoprolol tartrate 25 mg tablet 12.5 mg PO BID BLOOD PRESSURE #60 tabs 02/22/19[History Last Taken 01/20/22] nitroglycerin 0.4 mg sublingual tablet 0.4 mg sublingual Q5-15M PRN chest pain #25 tabs 02/24/19 [Rx Last Taken Unknown] losartan 50 mg tablet 50 mg PO DAILY BLOOD PRESSURE 12/21/19 [History Last Taken 01/20/22] atorvastatin 80 mg tablet 40 mg PO MOWEFR cholesterol #30 tabs 08/27/21 [History Last Taken 01/20/22] warfarin 5 mg tablet 5 mg PO SUTUTH BLOOD THINNER #30 tabs 08/27/21 [History Last Taken 01/19/22] amlodipine 5 mg tablet 5 mg PO DAILY blood pressure 01/21/22 [History Last Taken 01/20/22] atorvastatin 80 mg tablet 80 mg PO SUTUTHSA CHOLESTEROL 01/21/22 [History Last Taken 01/19/22] warfarin 5 mg tablet 2.5 mg PO MOWEFRSA BLOOD THINNER 01/21/22 [History Last Taken 01/20/22] lidocaine 5 % topical patch 1 patch topical DAILY #0 ea 01/23/22 [Rx Last Taken Unknown] sennosides 8.6 mg-docusate sodium 50 mg tablet (Stool Softener-Stimulant Laxative) 2 tab PO BID PRN PRN Constipation #0 tabs 01/23/22 [Rx Last Taken Unknown] sodium chloride 0.65 % nasal spray aerosol (Deep Sea Nasal) 2 spray NASAL Q4H PRN PRN NASAL DRYNESS #0 mL 01/23/22 [Rx Last Taken Unknown] Allergy/AdvReac Type Severity Reaction Status Date / Time No Known Allergies Allergy Verified 02/20/23 08:57 Family History Father AAA (abdominal aortic aneurysm, ruptured), Onset Age: 89 Mother Myocardial infarction Sudden cardiac , Onset Age: 80 Brother Hypertension Surgical History History of appendectomy History of coronary artery bypass surgery (~10/31/16) History of shoulder surgery History of tonsillectomy Hx of angioplasty Hx of colonoscopy Presence of implantable cardioverter-defibrillator (ICD) (~04/14/19) Social History Smoking Status: Former smoker how long ago did patient quit smokin alcohol intake: never substance use type: does not use caffeine: Yes Type: coffee Number of servings: 1 what type of physical activity do you participate in: none frequency: does not exercise ROS Constitutional Constitutional: Reports weakness; Denies change in weight, chills, fatigue or fever(s) Eyes Eyes: Denies change in vision Cardiovascular Cardiovascular: Denies chest pain, dyspnea on exertion, edema, lightheadedness or palpitations Respiratory/Chest Respiratory/Chest: Denies cough Gastrointestinal Gastrointestinal: Denies abdominal pain, constipation, diarrhea, nausea or vomiting Genitourinary Genitourinary: Denies dysuria Musculoskeletal Musculoskeletal: Reports back pain Neurologic Neurologic: Reports abnormal gait and dizziness; Denies focal weakness, headache(s), numbness or paresthesias Vital Signs Vital Signs Vital Signs: 02/20/23 08:58 02/20/23 10:32 02/20/23 10:33 Temperature 97.5 F L 97.5 F L Temperature Source Temporal Pulse Rate 74 63 63 Respiratory Rate 18 16 16 Blood Pressure 178/90 H 158/71 H 158/71 H Blood Pressure Mean 119 100 100 Pulse Ox 96 97 97 Oxygen Delivery Method Room Air Room Air Weight Weight: 104.3 kg Body Mass Index (BMI) 31.1 Physical Exam Const alert, oriented x3 and average body habitus Constitutional Narrative: Elderly male, chronically ill-appearing, laying flat in bed with minimal movement due to pain, conversing normally. General Appearance: cooperative HEENT normocephalic, head/scalp atraumatic, hearing grossly normal bilaterally, nasal mucous membranes and turbinates normal and moist oral mucous membranes Eyes PERRL, EOMs intact bilaterally and conjunctivae normal Neck full ROM, no lymphadenopathy and supple Lymph Lymphatic: no lymphadenopathy noted Chest inspection of chest normal Resp normal respiratory effort, normal air movement, no use of accessory muscles and clear to auscultation bilaterally Cardio regular rate, regular rhythm, no murmurs and peripheral pulses 2+ throughout GI normal to inspection, nondistended, normoactive bowel sounds, soft to palpation,non-tender and non-distended Back/Spine Back/Spine Narrative: Difficult to move patient to palpate lower back. No apparent spinous process tenderness on exam. Bilateral paraspinal muscular tension. Extremity normal to inspection and no pedal edema Extremity Narrative: Mild chronic venous stasis changes bilaterally. Skin no rashes or lesions noted Neuro no focal motor deficits Speech: speech normal Psych mental status grossly normal Results Lab / Micro Data 02/21/23 06:19 02/21/23 06:19 Labs: Laboratory Results - last 24 hr 02/20/23 10:35: WBC 8.9, RBC 5.32, Hgb 15.7, Hct 48.4, MCV 91.0, MCH 29.5, MCHC 32.4, RDW Std Deviation 44.0 H, RDW Coeff of Jil 13.2, Plt Count 162, MPV 11.3, Immature Gran % (Auto) 0.400, Neut % (Auto) 80.2 H, Lymph % (Auto) 10.0 L, [place] % (Auto) 8.4, Eos % (Auto) 0.6, Baso % (Auto) 0.4, Absolute Neuts (auto) 7.2, Absolute Lymphs (auto) 0.89, Nucleated RBC % 0, Sodium 142, Potassium 4.1, Chloride 110 H, Carbon Dioxide 28.0, Anion Gap 4 L, BUN 21 H, Creatinine 1.01, Estim Creat Clear Calc 67.23, Est GFR (MDRD) Af Amer 92, Est GFR (MDRD) Non-Af 76, BUN/Creatinine Ratio 20.8 H, Glucose 119 H, Calcium 8.9 Imagaing Radiology Impression Lumbar Spine CT 02/20/23 09:13 IMPRESSION: Multilevel degenerative changes, as described above. Electronically Signed: Garcia Newman MD at 9:52 EST , Assessment & Plan Assessment/Plan (1) Intractable low back pain: PLAN: Plan Patient is a 87-year-old male who presented to [facility] ED on 02/20/2023 with worsening low back pain. 1. Intractable low back pain with recent fall, history of recurrent falls, generalized weakness Difficult to determine degree of acute versus chronic back pain for patient. Known history of recurrent falls, uses 4-point walker at home. CT L-spine showsdiffuse posterior disc bulge at L4-5, mild lumbar central canal stenosis, multilevel degenerative changes. No previous L-spine imaging. Notably no loss of bowel or bladder function, no radiculopathy. ? Admit under observation status to [facility]. Orthopedic surgery consulted. Treat pain with lidocaine patch, oxycodone 5 mg every 4 hours as needed for now. PT/OT/case management consulted. 2. Reported presyncopal symptoms; history of CAD s/p CABG, ischemic cardiomyopathy, history of ventricular thrombus Previously followed with Dr. Escobar with cardiology, last office visit in August 2021. History of CABG x 2 in 2017 done at [facility]. Last echo in 03/2019 showed persistently decreased EF of 35%, moderate segmental systolic dysfunction, left ventricular apical thrombus. Patient has been on Coumadin since then for the apical thrombus. Had single-chamber ICD placed in 04/2019. Patientreports going out at times without warning. On discussion with patient and family, seems like patient has some lightheadedness and dizziness when going from sitting to standing. ? Blood pressure elevated on admission at rest. Unable to complete orthostatic vital signs right now due to intractable back pain as noted above. Will repeat echocardiogram. Will continue home medications as normal for now. Will consider ICD interrogation, as patient does have history of runs of NSVT in the past. Monitor telemetry. INR ordered. Chronic medical conditions: ? Hypertension: Continue home amlodipine, losartan, Lopressor. ? Hyperlipidemia: Continue home statin. DVT prophylaxis: Coumadin CODE STATUS: Full code, verified Expected disposition: Home with home health care versus SNF, TBD Total clinical time spent by myself addressing the patient's medical issues, reviewing all the data, and collaborating with patient's care team: 55 minutes. Charges/Coding Visit Charges Inpatient E&M: 47206 Init Hosp L2 02/23/23 1544 <Electronically signed by Noé Cruz DO> Cosigner Signature (if applicable): CC: Dr. Noé Cruz DO; Dr. Jordy Saucedo MD~ Signed [facility] Work Phone: 1(696) 957-177712-18-2023 Progress note Author Ashwin Long [facility] February 23, 2023 10:06am Note Date/Time February 23, 2023 10:06am [facility] Medical Records Department [address] [place] [address] Progress Note - Hospitalist 02/23/23 1004 MR#: [id number] Acct: [id number] Name: OSMAN JONES Tobin Rep #:[id number] : 1945 77 From: Ashwin riddle MD PCP: Dr. Jordy Saucedo MD Status:A DM IN Location: AL3 UW270-4 Subjective Subjective Doing well, no issues overnight. Continues to have significant back pain imaging does not show any fracture post fall that happened about a week to 10 days ago. He never had any back pain prior to the fall Objective Data Objective Data Vital Signs: Vital Signs Temp Pulse Resp BP Pulse Ox O2 Del Method 98.6 F 65 18 154/80 H 95 Room Air 02/23/23 08:15 02/23/23 08:15 02/23/23 08:15 02/23/23 08:15 02/23/23 08:32 02/23/23 08:32 Oxygen Delivery Method Room Air Weight: 202 lb 15.991 oz Body Mass Index (BMI) 27.5 Intake & Output: Intake and Output for Last 24 Hours 02/22/23 02/23/23 02/24/23 03:59 03:59 03:59 Intake Total 250 / 250 800 / 800 Output Total 800 / 800 1025 / 1025 200 / 200 Balance -550 / -550 -225 / -225 -200 / -200 Lab / Micro Data 02/21/23 06:19 02/21/23 06:19 Physical Exam Narrative General: Alert, Oriented x3, Cooperative, No apparent distress HEENT: Atraumatic, PERRLA, EOMI, Normocephalic Oral: Moist Mucosa Neck: Supple, No JVD Lungs: Clear to auscultation, Normal air movement, No rhonchi, No wheeze, No rales Cardiovascular: Regular rate, Regular Rhythm, Normal S1, Normal S2, No murmurs Abdomen: Soft, Non Tender, Non-Distended, No Hepato-splenomegaly Extremities: No edema, Capillary Refill Less than 3 Seconds Skin: No rashes, No breakdown Musculoskeletal: No Tenderness to Palpation of Joints or Extremities Neurological: Cranial nerves II-XII grossly intact, Motor Exam 5/5 strength throughout, Sensory exam intact to light touch and pain Psych/Mental Status: Normal Affect, Appropriate Assessment & Plan Assessment/Plan (1) Intractable low back pain: PLAN: Plan 1. Intractable low back pain with recent fall, history of recurrent falls, generalized weakness Difficult to determine degree of acute versus chronic back pain for patient. Known history of recurrent falls, uses 4-point walker at home. CT L-spine showsdiffuse posterior disc bulge at L4-5, mild lumbar central canal stenosis, multilevel degenerative changes. No previous L-spine imaging. Notably no loss of bowel or bladder function, no radiculopathy. ? Orthopedic surgery following. Patient appears to have DISH on imaging. Okay for MRI L-spine while inpatient, with orthopedic surgery follow-up outpatient. Unfortunately, with patient's ICD he will not be able to have the MRI done untilMonday. Continue lidocaine patch and oxycodone as needed for pain management. PT/OT/case management following, likely home with home health care versus SNF ondischarge. 02/23/2023: MRI pending for today continue with pain management 2. Reported presyncopal symptoms; history of CAD s/p CABG, ischemic cardiomyopathy, history of ventricular thrombus Previously followed with Dr. Escobar with cardiology, last office visit in August 2021. History of CABG x 2 in 2017 done at [facility]. Last echo in 03/2019 showed persistently decreased EF of 35%, moderate segmental systolic dysfunction, left ventricular apical thrombus. Patient has been on Coumadin since then for the apical thrombus. Had single-chamber ICD placed in 04/2019. Patient reports going out at times without warning. On discussion with patient and family, seems like patient has some lightheadedness and dizziness when going from sitting to standing. Echo on 02/21 showed EF 45%, stage I diastolic dysfunction, large size apical, septal and anteroseptal wall motion abnormality with hypokinesis of the segments; mild improvement from previous. ? Patient denied presyncopal symptoms with getting up to work with PT/OT on 02/21. Have not completed orthostatic vital signs to this point but blood pressure has remained stable throughout admission. Patient with normal sinus rhythm on telemetry, no abnormalities noted. Will hold off on ICD interrogationat this time. Continue all home medications as normal. Recommended to patient that he reestablish with cardiology in the office after discharge. Chronic medical conditions: ? Hypertension: Continue home amlodipine, losartan, Lopressor. ? Hyperlipidemia: Continue home statin. DVT: Coumadin Charges/Coding Visit Charges Inpatient E&M: 45662 Subs Hosp L2 02/23/23 1006 <Electronically signed by Ashwin Long MD> Cosigner Signature (if applicable): CC: ~ Signed [facility] Work Phone: 1(414) 773-434212-17-2023 Progress note Author Noé Cruz [facility] February 22, 2023 12:17pm Note Date/Time February 22, 2023 12:17pm [facility] Medical Records Department [address] [place] [address] Progress Note - Hospitalist 02/22/23 1213 MR#: [id number] Acct: [id number] Name: OSMAN JONES Rep #:[id number] : 1945 77 From: Noé main DO PCP: Dr. Jordy Saucedo MD Status:A DM IN Location: MS3 [id number] Reason for Visit Reason for Visit: Diagnoses Spondylosis without myelopathy or radiculopathy, lumbar region (02/21/23) Other low back pain (02/21/23) Subjective Subjective Patient seen at bedside this morning. Laying in bed, appears slightly more comfortable today, no acute distress. Patient states he was able to work a bit with physical therapy yesterday. They got him up and moved him to the chair. He reported significant low back pain with this movement but was able to complete it. They tried to walk him around but he was only able to take a few steps before feeling too much pain and needing to sit down. Patient otherwise denies any fevers or chills, chest pain, shortness of breath. Denies any other acute pain or discomfort. No other acute concerns this morning. Objective Data Objective Data Vital Signs: Vital Signs Temp Pulse Resp BP Pulse Ox O2 Del Method 97.9 F 63 16 131/73 H 96 Room Air 02/22/23 11:33 02/22/23 11:33 02/22/23 11:33 02/22/23 11:33 02/22/23 11:33 02/22/23 11:33 Oxygen Delivery Method Room Air Weight: 92.079 kg Body Mass Index (BMI) 27.5 Intake & Output: Intake and Output for Last 24 Hours 02/20/23 02/21/23 02/22/23 23:59 23:59 23:59 Intake Total 250 / 250 350 / 350 Output Total 250 / 250 850 / 1050 300 / 300 Balance -250 / -250 -600 / -800 50 / 50 Lab / Micro Data 02/21/23 06:19 02/21/23 06:19 Labs: Laboratory Results - last 24 hr 02/21/23 11:52: Urine Color Yellow, Urine Clarity Sl. Cloudy, Urine pH 6.0, Ur Specific [place] 1.020, Urine Protein 15 H, Urine Glucose (UA) Normal, Urine Ketones Negative, Urine Occult Blood 25 H, Urine Nitrite Negative, Urine Bilirubin Negative, Urine Urobilinogen 4 H, Ur Leukocyte Esterase 25 H, Urine RBC 0 SEEN, Urine WBC 0-5 SEEN, Ur Squamous Epith Cells 0 SEEN, Urine Bacteria RARE,Urine Mucus 0 SEEN Radiography Diagnostic Testing: Radiology Impression Echocardiogram 02/20/23 16:51 Interpretation Summary There is a large sized apical, septal, and anteroseptal wall motion abnormality with hypokinesis of the segments. The estimated ejection fraction is 45 %. Stage 1 diastolic dysfunction. Ordering Physician: Noé Cruz Referring Physician: Jordy Saucedo M.D. Performed By: Job Meier RCS Physical Exam Const alert, oriented x3 and average body habitus Constitutional Narrative: Elderly male, chronically ill-appearing, laying in bed, appears slightly more comfortable today than previous days, conversing normally, no acute distress. General Appearance: cooperative HEENT normocephalic, head/scalp atraumatic, hearing grossly normal bilaterally, nasal mucous membranes and turbinates normal and moist oral mucous membranes Eyes PERRL, EOMs intact bilaterally and conjunctivae normal Neck full ROM, no lymphadenopathy and supple Lymph Lymphatic: no lymphadenopathy noted Chest inspection of chest normal Resp normal respiratory effort, normal air movement, no use of accessory muscles and clear to auscultation bilaterally Cardio regular rate, regular rhythm, no murmurs and peripheral pulses 2+ throughout GI normal to inspection, nondistended, normoactive bowel sounds, soft to palpation,non-tender and non-distended Back/Spine Back/Spine Narrative: Difficult to move patient to palpate lower back. No apparent spinous process tenderness on exam. Bilateral paraspinal muscular tension. Extremity normal to inspection and no pedal edema Extremity Narrative: Mild chronic venous stasis changes bilaterally. Skin no rashes or lesions noted Neuro no focal motor deficits Speech: speech normal Psych mental status grossly normal Assessment & Plan Assessment/Plan (1) Intractable low back pain: PLAN: Plan Patient is a 87-year-old male who presented to [facility] ED on 02/20/2023 with worsening low back pain. 1. Intractable low back pain with recent fall, history of recurrent falls, generalized weakness Difficult to determine degree of acute versus chronic back pain for patient. Known history of recurrent falls, uses 4-point walker at home. CT L-spine showsdiffuse posterior disc bulge at L4-5, mild lumbar central canal stenosis, multilevel degenerative changes. No previous L-spine imaging. Notably no loss of bowel or bladder function, no radiculopathy. ? Orthopedic surgery following. Patient appears to have DISH on imaging. Okay for MRI L-spine while inpatient, with orthopedic surgery follow-up outpatient. Unfortunately, with patient's ICD he will not be able to have the MRI done untilMond. Continue lidocaine patch and oxycodone as needed for pain management. PT/OT/case management following, likely home with home health care versus SNF ondischarge. 2. Reported presyncopal symptoms; history of CAD s/p CABG, ischemic cardiomyopathy, history of ventricular thrombus Previously followed with Dr. Escobar with cardiology, last office visit in August 2021. History of CABG x 2 in 2017 done at [facility]. Last echo in 03/2019 showed persistently decreased EF of 35%, moderate segmental systolic dysfunction, left ventricular apical thrombus. Patient has been on Coumadin since then for the apical thrombus. Had single-chamber ICD placed in 04/2019. Patient reports going out at times without warning. On discussion with patient and family, seems like patient has some lightheadedness and dizziness when going from sitting to standing. Echo on 02/21 showed EF 45%, stage I diastolic dysfunction, large size apical, septal and anteroseptal wall motion abnormality with hypokinesis of the segments; mild improvement from previous. ? Patient denied presyncopal symptoms with getting up to work with PT/OT on 02/21. Have not completed orthostatic vital signs to this point but blood pressure has remained stable throughout admission. Patient with normal sinus rhythm on telemetry, no abnormalities noted. Will hold off on ICD interrogationat this time. Continue all home medications as normal. Recommended to patient that he reestablish with cardiology in the office after discharge. Chronic medical conditions: ? Hypertension: Continue home amlodipine, losartan, Lopressor. ? Hyperlipidemia: Continue home statin. DVT prophylaxis: Coumadin CODE STATUS: Full code, verified Expected disposition: Home with home health care versus SNF, 2-3 days Total clinical time spent by myself addressing the patient's medical issues, reviewing all the data, and collaborating with patient's care team: 35 minutes. Charges/Coding Visit Charges Inpatient E&M: 32102 Subs Hosp L2 02/22/23 1217 <Electronically signed by Noé Cruz DO> Cosigner Signature (if applicable): CC: ~ Signed [facility] Work Phone: 1(638) 405-659912-16-2023 Progress note Author Noé [facility] February 21, 2023 1:04pm Note Date/Time February 21, 2023 1:04pm [facility] Medical Records Department [address] [place] [id number] Progress Note - Hospitalist 02/21/23 1257 MR#: [id number] Acct: [id number] Name: OSMAN JONES Rep #:[id number] : 1945 77 From: Noé main DO PCP: Dr. Jordy Saucedo MD Status:A DM RICARDO Location: [place] [address] Reason for Visit Reason for Visit: Diagnoses Spondylosis without myelopathy or radiculopathy, lumbar region (02/20/23) Subjective Subjective Patient seen at bedside this morning, present. Patient was still laying flat in bed and appeared uncomfortable with essentially any movement. Stated that his back feels about the same today as yesterday, still has significant pain with any movement. States that the pain medication has been somewhat helpful for him. He otherwise denies any fevers or chills or any other pain or discomfort. No other acute concerns morning. Objective Data Objective Data Vital Signs: Vital Signs Temp Pulse Resp BP Pulse Ox O2 Del Method 97.9 F 69 16 119/74 97 Room Air 02/21/23 11:48 02/21/23 11:48 02/21/23 11:48 02/21/23 11:48 02/21/23 11:48 02/21/23 11:48 Oxygen Delivery Method Room Air Weight: 92.079 kg Body Mass Index (BMI) 27.5 Intake & Output: Intake and Output for Last 24 Hours 02/19/23 02/20/23 02/21/23 23:59 23:59 23:59 Output Total 250 / 250 650 / 650 Balance -250 / -250 -650 / -650 Lab / Micro Data 02/21/23 06:19 02/21/23 06:19 Labs: Laboratory Results - last 24 hr 02/21/23 06:19: WBC 7.5, RBC 4.82, Hgb 14.7, Hct 44.1, MCV 91.5, MCH 30.5, MCHC 33.3, RDW Std Deviation 44.2 H, RDW Coeff of Jil 13.2, Plt Count 149 L, MPV 11.5, PT 36.0 H, INR 3.5, Sodium 141, Potassium 3.6, Chloride 112 H, Carbon Dioxide 26.0, Anion Gap 3 L, BUN 22 H, Creatinine 0.79, Estim Creat Clear Calc 67.90, Est GFR (MDRD) Af Amer 122, Est GFR (MDRD) Non-Af 101, BUN/Creatinine Ratio 27.7 H, Glucose 92, Calcium 8.5 Radiography Diagnostic Testing: Radiology Impression Echocardiogram 02/20/23 16:51 Interpretation Summary There is a large sized apical, septal, and anteroseptal wall motion abnormality with hypokinesis of the segments. The estimated ejection fraction is 45 %. Stage 1 diastolic dysfunction. Ordering Physician: Noé Cruz Referring Physician: Jordy Saucedo M.D. Performed By: Job Meier RCS Physical Exam Const alert, oriented x3 and average body habitus Constitutional Narrative: Elderly male, chronically ill-appearing, laying flat in bed with minimal movement due to pain, conversing normally. General Appearance: cooperative HEENT normocephalic, head/scalp atraumatic, hearing grossly normal bilaterally, nasal mucous membranes and turbinates normal and moist oral mucous membranes Eyes PERRL, EOMs intact bilaterally and conjunctivae normal Neck full ROM, no lymphadenopathy and supple Lymph Lymphatic: no lymphadenopathy noted Chest inspection of chest normal Resp normal respiratory effort, normal air movement, no use of accessory muscles and clear to auscultation bilaterally Cardio regular rate, regular rhythm, no murmurs and peripheral pulses 2+ throughout GI normal to inspection, nondistended, normoactive bowel sounds, soft to palpation,non-tender and non-distended Back/Spine Back/Spine Narrative: Difficult to move patient to palpate lower back. No apparent spinous process tenderness on exam. Bilateral paraspinal muscular tension. Extremity normal to inspection and no pedal edema Extremity Narrative: Mild chronic venous stasis changes bilaterally. Skin no rashes or lesions noted Neuro no focal motor deficits Speech: speech normal Psych mental status grossly normal Assessment & Plan Assessment/Plan (1) Intractable low back pain: PLAN: Plan Patient is a 87-year-old male who presented to [facility] ED on 02/20/2023 with worsening low back pain. 1. Intractable low back pain with recent fall, history of recurrent falls, generalized weakness Difficult to determine degree of acute versus chronic back pain for patient. Known history of recurrent falls, uses 4-point walker at home. CT L-spine showsdiffuse posterior disc bulge at L4-5, mild lumbar central canal stenosis, multilevel degenerative changes. No previous L-spine imaging. Notably no loss of bowel or bladder function, no radiculopathy. ? Orthopedic surgery following. Patient appears to have DISH on imaging. Okay for MRI L-spine while inpatient, with orthopedic surgery follow-up outpatient. Unfortunately, with patient's ICD he will not be able to have the MRI done untilMonday. Continue lidocaine patch and oxycodone as needed for pain management. PT/OT/case management following. 2. Reported presyncopal symptoms; history of CAD s/p CABG, ischemic cardiomyopathy, history of ventricular thrombus Previously followed with Dr. Escobar with cardiology, last office visit in August 2021. History of CABG x 2 in 2017 done at [facility]. Last echo in 03/2019 showed persistently decreased EF of 35%, moderate segmental systolic dysfunction, left ventricular apical thrombus. Patient has been on Coumadin since then for the apical thrombus. Had single-chamber ICD placed in 04/2019. Patient reports going out at times without warning. On discussion with patient and family, seems like patient has some lightheadedness and dizziness when going from sitting to standing. Echo on 02/21 showed EF 45%, stage I diastolic dysfunction, large size apical, septal and anteroseptal wall motion abnormality with hypokinesis of the segments; mild improvement from previous. ? Blood pressure elevated on admission at rest. Unable to complete orthostatic vital signs at this time due to intractable back pain as noted above. Patient with normal sinus rhythm on telemetry, no abnormalities noted. Will hold off onICD interrogation at this time. Continue all home medications as normal. Chronic medical conditions: ? Hypertension: Continue home amlodipine, losartan, Lopressor. ? Hyperlipidemia: Continue home statin. DVT prophylaxis: Coumadin CODE STATUS: Full code, verified Expected disposition: Home with home health care versus SNF, TBD Total clinical time spent by myself addressing the patient's medical issues, reviewing all the data, and collaborating with patient's care team: 35 minutes. Charges/Coding Visit Charges Inpatient E&M: 71743 Subs Hosp L2 02/21/23 1304 <Electronically signed by Noé Cruz DO> Cosigner Signature (if applicable): CC: ~ Signed [facility] Work Phone: [phone]) 712-881312-15-2023 Consult note Author Vadim Millan [facility] February 20, 2023 6:37pm Note Date/Time February 20, 2023 6:37pm [facility] Medical Records Department [address] [place] [address] Consultation - Orthopedics 02/20/23 1833 MR#: [id number] Acct: [id number] Name: OSMAN JONES Rep #:[id number] : 1945 77 From: Vadim Millan MD PCP: Dr. Jordy Saucedo MD Status:A DM RICARDO Location: [place] [address] HPI Consult Data Date of Consult: 02/20/23 HPI Narrative HPI Narrative: OSMAN JONES, is a 77 M who presents with low back pain after a fall 2 days ago. Orthopedics spine was consulted today. I saw the patient he is comfortable in bed but mentions that anytime he bends forward or raises up his head of the bed, he gets severe pain in the lower back region. He has had low back pain for long period of time, many years. He is also had balance issues which are worsening over the last 5 years. He does not have a diagnosis or reason for the balance issues. He denies any radiation of pain from the lower back to the lower extremities. [facility] Medical History Atherosclerotic heart disease of [place] coronary artery without angina pectoris Bilateral carotid artery stenosis Coronary-myocardial bridge Essential hypertension Facial laceration Fall Fatigue History of myocardial infarction Ischemic cardiomyopathy Left ventricular apical thrombus Pure hypercholesterolemia Home Medications aspirin 81 mg tablet,delayed release (Adult Aspirin Regimen) 81 mg PO DAILY heart health 10/25/18 [History Last Taken 2 Days Ago ~01/19/22] metoprolol tartrate 25 mg tablet 12.5 mg PO BID BLOOD PRESSURE #60 tabs 02/22/19[History Last Taken 01/20/22] nitroglycerin 0.4 mg sublingual tablet 0.4 mg sublingual Q5-15M PRN chest pain #25 tabs 02/24/19 [Rx Last Taken Unknown] losartan 50 mg tablet 50 mg PO DAILY BLOOD PRESSURE 12/21/19 [History Last Taken 01/20/22] atorvastatin 80 mg tablet 40 mg PO MOWEFR cholesterol #30 tabs 08/27/21 [History Last Taken 01/20/22] warfarin 5 mg tablet 5 mg PO SUTUTH BLOOD THINNER #30 tabs 08/27/21 [History Last Taken 01/19/22] amlodipine 5 mg tablet 5 mg PO DAILY blood pressure 01/21/22 [History Last Taken 01/20/22] atorvastatin 80 mg tablet 80 mg PO SUTUTHSA CHOLESTEROL 01/21/22 [History Last Taken 01/19/22] warfarin 5 mg tablet 2.5 mg PO MOWEFRSA BLOOD THINNER 01/21/22 [History Last Taken 01/20/22] lidocaine 5 % topical patch 1 patch topical DAILY #0 ea 01/23/22 [Rx Last Taken Unknown] sennosides 8.6 mg-docusate sodium 50 mg tablet (Stool Softener-Stimulant Laxative) 2 tab PO BID PRN PRN Constipation #0 tabs 01/23/22 [Rx Last Taken Unknown] sodium chloride 0.65 % nasal spray aerosol (Deep Sea Nasal) 2 spray NASAL Q4H PRN PRN NASAL DRYNESS #0 mL 01/23/22 [Rx Last Taken Unknown] Allergy/AdvReac Type Severity Reaction Status Date / Time No Known Allergies Allergy Verified 02/20/23 08:57 Family History Father AAA (abdominal aortic aneurysm, ruptured), Onset Age: 89 Mother Myocardial infarction Sudden cardiac , Onset Age: 80 Brother Hypertension Surgical History History of appendectomy History of coronary artery bypass surgery (~10/31/16) History of shoulder surgery History of tonsillectomy Hx of angioplasty Hx of colonoscopy Presence of implantable cardioverter-defibrillator (ICD) (~04/14/19) Social History Smoking Status: Former smoker how long ago did patient quit smokin alcohol intake: never substance use type: does not use caffeine: Yes Type: coffee Number of servings: 1 what type of physical activity do you participate in: none frequency: does not exercise Vital Signs Vital Signs Vital Signs: 02/20/23 08:58 02/20/23 10:32 02/20/23 10:33 Temperature 97.5 F L 97.5 F L Temperature Source Temporal Pulse Rate 74 63 63 Respiratory Rate 18 16 16 Respiratory Effort Blood Pressure 178/90 H 158/71 H 158/71 H Blood Pressure Mean 119 100 100 Pulse Ox 96 97 97 Oxygen Delivery Method Room Air Room Air 02/20/23 14:38 02/20/23 15:40 Temperature Temperature Source Pulse Rate Respiratory Rate Respiratory Effort Normal Blood Pressure Blood Pressure Mean Pulse Ox Oxygen Delivery Method Room Air Room Air Weight Weight: 202 lb 15.991 oz Body Mass Index (BMI) 27.5 Physical Exam Narrative Examination of the back shows mild vague tenderness in midline and paraspinal region in the mid to lower lumbar region. Neurologic evaluation of upper and lower extremity shows 5 x 5 power in all groups normal sensations in all dermatomes. There is no hyperreflexia. Lab / Micro Data 02/20/23 10:35 02/20/23 10:35 Labs: Laboratory Results - last 24 hr 02/20/23 10:35: WBC 8.9, RBC 5.32, Hgb 15.7, Hct 48.4, MCV 91.0, MCH 29.5, MCHC 32.4, RDW Std Deviation 44.0 H, RDW Coeff of Jil 13.2, Plt Count 162, MPV 11.3, Immature Gran % (Auto) 0.400, Neut % (Auto) 80.2 H, Lymph % (Auto) 10.0 L, [place] % (Auto) 8.4, Eos % (Auto) 0.6, Baso % (Auto) 0.4, Absolute Neuts (auto) 7.2, Absolute Lymphs (auto) 0.89, Nucleated RBC % 0, Sodium 142, Potassium 4.1, Chloride 110 H, Carbon Dioxide 28.0, Anion Gap 4 L, BUN 21 H, Creatinine 1.01, Estim Creat Clear Calc 67.23, Est GFR (MDRD) Af Amer 92, Est GFR (MDRD) Non-Af 76, BUN/Creatinine Ratio 20.8 H, Glucose 119 H, Calcium 8.9 Imagaing Radiology Impression Lumbar Spine CT 02/20/23 09:13 IMPRESSION: Multilevel degenerative changes, as described above. Electronically Signed: Garcia Newman MD at 9:52 EST Reading Location ID and State: [address] [place] [address] , Service support , Assessment & Plan Assessment/Plan (1) Degenerative joint disease of spine: QUALIFIERS: Spinal region: lumbar Spinal osteoarthritis complication: without myelopathy or radiculopathy Qualified Code(s): M47.816 - Spondylosis without myelopathy or radiculopathy, lumbar region PLAN: Plan I reviewed patient's CT lumbar spine done recently. This shows evidence of diffuse idiopathic skeletal hyperostosis or DISH. No obvious fractures noticed. No recent x-rays or MRI available. I explained to him that he does not seem to have had any fractures from the recent fall. His longstanding balance issues are difficult to explain from the available imaging. He may best be consulted with neurologist to identify his longstanding balance issues. His lower back pain has been chronic and gets aggravated with falls. It may be reasonable to consider obtaining MRI of the lumbar spine. Patient may follow-up with us as an outpatient after obtaining this MRI of the lumbar spine. Patient was in agreement. Charges/Coding Visit Charges Inpatient E&M: 67933 Init Hosp L2 02/20/237 <Electronically signed by Vadim Millan MD> Cosigner Signature (if applicable): CC: Dr. Noé Cruz DO; Dr. Rajiv Hwang, ; Dr. Jordy Saucedo MD~ Signed [facility] Work Phone: 1(537) 566-752512-15-2023 Discharge summary Author Caesar Andrew [facility] February 20, 2023 11:31am Note Date/Time February 20, 2023 9:20am [facility] Medical Records Department [address] [place] [address] Emergency Department Summary 02/20/23 MR#: [id number] Acct: [id number] Name: OSMAN JONES Rep #:[id number] : 1945 77 From: Caesar Andrew MD PCP: Dr. Jordy Saucedo MD Status:R EG ER Location: ED HPI History of Present Illness Chief Complaint: Back Narrative Narrative: 77-year-old male past medical history of frequent falls, presents via EMS with low back pain from a fall on Thursday, 5 days ago. He and his relate historythat he has times when he is very weak and just goes out. On Thursday, he was leaning forward, lost his balance and may have felt dizzy, but ended up rolling backwards onto his tailbone. Since then has had low back pain. It is worse with transfer. He has been taking Aleve without relief. He states that sometimes when he lays flat, it is improved but when he tries to get up and transfer, he has exquisite pain in his low back. He denies any fevers or chills, no cauda equina type symptoms. Pain is worse with movement, and is relievedby nothing. He states usually after he falls like he did a few weeks ago, he can recuperate in a few days, but he has had continued pain in his low back. [facility] Medical History Atherosclerotic heart disease of [place] coronary artery without angina pectoris Bilateral carotid artery stenosis Coronary-myocardial bridge Essential hypertension Facial laceration Fall Fatigue History of myocardial infarction Ischemic cardiomyopathy Left ventricular apical thrombus Pure hypercholesterolemia Home Medications aspirin 81 mg tablet,delayed release (Adult Aspirin Regimen) 81 mg PO DAILY heart health 10/25/18 [History Last Taken 2 Days Ago ~01/19/22] metoprolol tartrate 25 mg tablet 12.5 mg PO BID BLOOD PRESSURE #60 tabs 02/22/19[History Last Taken 01/20/22] nitroglycerin 0.4 mg sublingual tablet 0.4 mg sublingual Q5-15M PRN chest pain #25 tabs 02/24/19 [Rx Last Taken Unknown] losartan 50 mg tablet 50 mg PO DAILY BLOOD PRESSURE 12/21/19 [History Last Taken 01/20/22] atorvastatin 80 mg tablet 40 mg PO MOWEFR cholesterol #30 tabs 08/27/21 [History Last Taken 01/20/22] warfarin 5 mg tablet 5 mg PO SUTUTH BLOOD THINNER #30 tabs 08/27/21 [History Last Taken 01/19/22] amlodipine 5 mg tablet 5 mg PO DAILY blood pressure 01/21/22 [History Last Taken 01/20/22] atorvastatin 80 mg tablet 80 mg PO SUTUTHSA CHOLESTEROL 01/21/22 [History Last Taken 01/19/22] warfarin 5 mg tablet 2.5 mg PO MOWEFRSA BLOOD THINNER 01/21/22 [History Last Taken 01/20/22] lidocaine 5 % topical patch 1 patch topical DAILY #0 ea 01/23/22 [Rx Last Taken Unknown] sennosides 8.6 mg-docusate sodium 50 mg tablet (Stool Softener-Stimulant Laxative) 2 tab PO BID PRN PRN Constipation #0 tabs 01/23/22 [Rx Last Taken Unknown] sodium chloride 0.65 % nasal spray aerosol (Deep Sea Nasal) 2 spray NASAL Q4H PRN PRN NASAL DRYNESS #0 mL 01/23/22 [Rx Last Taken Unknown] Allergy/AdvReac Type Severity Reaction Status Date / Time No Known Allergies Allergy Verified 02/20/23 08:57 Family History Father AAA (abdominal aortic aneurysm, ruptured), Onset Age: 89 Mother Myocardial infarction Sudden cardiac , Onset Age: 80 Brother Hypertension Surgical History History of appendectomy History of coronary artery bypass surgery (~10/31/16) History of shoulder surgery History of tonsillectomy Hx of angioplasty Hx of colonoscopy Presence of implantable cardioverter-defibrillator (ICD) (~04/14/19) Social History Smoking Status: Former smoker how long ago did patient quit smokin alcohol intake: never substance use type: does not use caffeine: Yes Type: coffee Number of servings: 1 what type of physical activity do you participate in: none frequency: does not exercise ROS ROS ED ROS Narrative Constitutional: No fever, no chills. HEENT: No sore throat. No neck pain. No loss of vision. No rhinorrhea. Cardiovascular: No chest pain. No palpitations. No pedal edema. Respiratory: No cough, no shortness of breath. Abdominal: No abdominal pain. No nausea. No vomiting. Genitourinary: No dysuria. No hematuria. Musculoskeletal: No myalgias. No arthralgias. Positive low back pain. Neurologic: No headaches. No dizziness. No lightheadedness. Skin: No rash. No change in color. Psychiatric: No depression. No anxiety. EXAM Physical Exam Narrative Exam Narrative: Afebrile. Vital signs noted. CS 15. ABCs intact. HEENT: Normocephalic. Atraumatic. PERRL, EOMI. Neck soft and supple. No pointtenderness or step off. Cardiovascular: Regular rate and rhythm. No murmurs, rubs, or gallops appreciated. Respiratory: No tachypnea. Lungs clear to auscultation bilaterally. Gastrointestinal: Abdomen soft, nontender, with normoactive bowel sounds. No rebound or guarding. Neurological: Awake. Alert. Nonfocal, nonlateralizing. Skin: No rash. Normal color. No pallor. Musculoskeletal: No pedal edema. Full range of motion extremities. Tenderness to low back/lumbar area, no crepitance. No vertebral point tenderness or bony step-off. Pelvis stable. Full range of motion of bilateral hips and knees, flexion and extension of hips and knees intact bilaterally. Const Vital Signs: 02/20/23 08:58 02/20/23 10:32 02/20/23 10:33 Temperature 97.5 F L 97.5 F L Temperature Source Temporal Pulse Rate 74 63 63 Respiratory Rate 18 16 16 Blood Pressure 178/90 H 158/71 H 158/71 H Blood Pressure Mean 119 100 100 Pulse Ox 96 97 97 Oxygen Delivery Method Room Air Room Air MDM MDM MDM Narrative Medical decision making narrative: In the differential diagnosis would be pelvic fracture versus hip fracture versus vertebral compression fracture or transverse process fracture. I had a lengthy discussion with the patient and his . They states that they have discussed whether or not he needs placement, but are undecided. Initially, I donot feel that laboratory work is indicated, and this was discussed with his wifewho agrees but I will obtain imaging of his lumbosacral spine in the form of CT. He was given Percocet for analgesia here. I reviewed the CT report which shows multilevel degenerative changes and bulgingdisks posteriorly with spinal stenosis. I do not feel he requires emergent MRI as he has full range of motion of his bilateral legs. Attempt was made to sit the patient up, but he states his pain is intractable. I once again discussed having him observed for intractable back pain as he is unable to get up and perform his ADLs. He was administered morphine intravenously after saline lock was inserted and basic labs obtained. I will discuss patient with the hospitalist for observation. Patient is in stable condition. Lab Data Labs: Laboratory Results - last 24 hr 02/20/23 10:35 WBC 8.9 RBC 5.32 Hgb 15.7 Hct 48.4 MCV 91.0 MCH 29.5 MCHC 32.4 RDW Std Deviation 44.0 H RDW Coeff of Jil 13.2 Plt Count 162 MPV 11.3 Immature Gran % (Auto) 0.400 Neut % (Auto) 80.2 H Lymph % (Auto) 10.0 L [place] % (Auto) 8.4 Eos % (Auto) 0.6 Baso % (Auto) 0.4 Absolute Neuts (auto) 7.2 Absolute Lymphs (auto) 0.89 Nucleated RBC % 0 Sodium 142 Potassium 4.1 Chloride 110 H Carbon Dioxide 28.0 Anion Gap 4 L BUN 21 H Creatinine 1.01 Estim Creat Clear Calc 67.23 Est GFR (MDRD) Af Amer 92 Est GFR (MDRD) Non-Af 76 BUN/Creatinine Ratio 20.8 H Glucose 119 H Calcium 8.9 Radiography Diagnostic Testing: Clinical Impression(s) from Imaging Studies Lumbar Spine CT 02/20/23 09:13 IMPRESSION: Multilevel degenerative changes, as described above. Electronically Signed: Garcia Newman MD at 9:52 EST , Management Discussion w/another healthcare provider: Hospitalist (Dr. Cruz) Discharge Plan Dx/Rx/DC Orders Clinical Impression: Spinal stenosis, Frequent falls, Intractable low back pain, Inability to perform activities of daily living, Degenerative joint disease of spine Disposition Disposition: Acute Care Hospital [facility] What to do if you have Problems For any increased pain, shortness of breath, bleeding, nausea or vomiting, chestpain, or any unexpected problems, contact your Primary Care Provider. Call [facility] ([phone]) or report to the closest Emergency Room. Call 911 if necessary. 02/20/23 1131 <Electronically signed by Caesar Andrew MD> Cosigner Signature (if applicable): CC: Dr. Jordy Saucedo MD ~ Signed [facility] Work Phone: 1(809) 577-258512-15-2023 Discharge summary Author Caesar Andrew [facility] February 20, 2023 11:31am Note Date/Time February 20, 2023 9:20am [facility] Medical Records Department [address] [place] [address] Emergency Department Summary 02/20/23 MR#: [id number] Acct: [id number] Name: OSMAN JONES Tobin Rep #:[id number] : 1945 77 From: Caesar Andrew MD PCP: Dr. Jordy Saucedo MD Status:R EG ER Location: ED HPI History of Present Illness Chief Complaint: Back Narrative Narrative: 77-year-old male past medical history of frequent falls, presents via EMS with low back pain from a fall on Thursday, 5 days ago. He and his relate historythat he has times when he is very weak and just goes out. On Thursday, he was leaning forward, lost his balance and may have felt dizzy, but ended up rolling backwards onto his tailbone. Since then has had low back pain. It is worse with transfer. He has been taking Aleve without relief. He states that sometimes when he lays flat, it is improved but when he tries to get up and transfer, he has exquisite pain in his low back. He denies any fevers or chills, no cauda equina type symptoms. Pain is worse with movement, and is relievedby nothing. He states usually after he falls like he did a few weeks ago, he can recuperate in a few days, but he has had continued pain in his low back. [facility] Medical History Atherosclerotic heart disease of [place] coronary artery without angina pectoris Bilateral carotid artery stenosis Coronary-myocardial bridge Essential hypertension Facial laceration Fall Fatigue History of myocardial infarction Ischemic cardiomyopathy Left ventricular apical thrombus Pure hypercholesterolemia Home Medications aspirin 81 mg tablet,delayed release (Adult Aspirin Regimen) 81 mg PO DAILY heart health 10/25/18 [History Last Taken 2 Days Ago ~01/19/22] metoprolol tartrate 25 mg tablet 12.5 mg PO BID BLOOD PRESSURE #60 tabs 02/22/19[History Last Taken 01/20/22] nitroglycerin 0.4 mg sublingual tablet 0.4 mg sublingual Q5-15M PRN chest pain #25 tabs 02/24/19 [Rx Last Taken Unknown] losartan 50 mg tablet 50 mg PO DAILY BLOOD PRESSURE 12/21/19 [History Last Taken 01/20/22] atorvastatin 80 mg tablet 40 mg PO MOWEFR cholesterol #30 tabs 08/27/21 [History Last Taken 01/20/22] warfarin 5 mg tablet 5 mg PO SUTUTH BLOOD THINNER #30 tabs 08/27/21 [History Last Taken 01/19/22] amlodipine 5 mg tablet 5 mg PO DAILY blood pressure 01/21/22 [History Last Taken 01/20/22] atorvastatin 80 mg tablet 80 mg PO SUTUTHSA CHOLESTEROL 01/21/22 [History Last Taken 01/19/22] warfarin 5 mg tablet 2.5 mg PO MOWEFRSA BLOOD THINNER 01/21/22 [History Last Taken 01/20/22] lidocaine 5 % topical patch 1 patch topical DAILY #0 ea 01/23/22 [Rx Last Taken Unknown] sennosides 8.6 mg-docusate sodium 50 mg tablet (Stool Softener-Stimulant Laxative) 2 tab PO BID PRN PRN Constipation #0 tabs 01/23/22 [Rx Last Taken Unknown] sodium chloride 0.65 % nasal spray aerosol (Deep Sea Nasal) 2 spray NASAL Q4H PRN PRN NASAL DRYNESS #0 mL 01/23/22 [Rx Last Taken Unknown] Allergy/AdvReac Type Severity Reaction Status Date / Time No Known Allergies Allergy Verified 02/20/23 08:57 Family History Father AAA (abdominal aortic aneurysm, ruptured), Onset Age: 89 Mother Myocardial infarction Sudden cardiac , Onset Age: 80 Brother Hypertension Surgical History History of appendectomy History of coronary artery bypass surgery (~10/31/16) History of shoulder surgery History of tonsillectomy Hx of angioplasty Hx of colonoscopy Presence of implantable cardioverter-defibrillator (ICD) (~04/14/19) Social History Smoking Status: Former smoker how long ago did patient quit smokin alcohol intake: never substance use type: does not use caffeine: Yes Type: coffee Number of servings: 1 what type of physical activity do you participate in: none frequency: does not exercise ROS ROS ED ROS Narrative Constitutional: No fever, no chills. HEENT: No sore throat. No neck pain. No loss of vision. No rhinorrhea. Cardiovascular: No chest pain. No palpitations. No pedal edema. Respiratory: No cough, no shortness of breath. Abdominal: No abdominal pain. No nausea. No vomiting. Genitourinary: No dysuria. No hematuria. Musculoskeletal: No myalgias. No arthralgias. Positive low back pain. Neurologic: No headaches. No dizziness. No lightheadedness. Skin: No rash. No change in color. Psychiatric: No depression. No anxiety. EXAM Physical Exam Narrative Exam Narrative: Afebrile. Vital signs noted. CS 15. ABCs intact. HEENT: Normocephalic. Atraumatic. PERRL, EOMI. Neck soft and supple. No pointtenderness or step off. Cardiovascular: Regular rate and rhythm. No murmurs, rubs, or gallops appreciated. Respiratory: No tachypnea. Lungs clear to auscultation bilaterally. Gastrointestinal: Abdomen soft, nontender, with normoactive bowel sounds. No rebound or guarding. Neurological: Awake. Alert. Nonfocal, nonlateralizing. Skin: No rash. Normal color. No pallor. Musculoskeletal: No pedal edema. Full range of motion extremities. Tenderness to low back/lumbar area, no crepitance. No vertebral point tenderness or bony step-off. Pelvis stable. Full range of motion of bilateral hips and knees, flexion and extension of hips and knees intact bilaterally. Const Vital Signs: 02/20/23 08:58 02/20/23 10:32 02/20/23 10:33 Temperature 97.5 F L 97.5 F L Temperature Source Temporal Pulse Rate 74 63 63 Respiratory Rate 18 16 16 Blood Pressure 178/90 H 158/71 H 158/71 H Blood Pressure Mean 119 100 100 Pulse Ox 96 97 97 Oxygen Delivery Method Room Air Room Air MDM MDM MDM Narrative Medical decision making narrative: In the differential diagnosis would be pelvic fracture versus hip fracture versus vertebral compression fracture or transverse process fracture. I had a lengthy discussion with the patient and his . They states that they have discussed whether or not he needs placement, but are undecided. Initially, I donot feel that laboratory work is indicated, and this was discussed with his wifewho agrees but I will obtain imaging of his lumbosacral spine in the form of CT. He was given Percocet for analgesia here. I reviewed the CT report which shows multilevel degenerative changes and bulgingdisks posteriorly with spinal stenosis. I do not feel he requires emergent MRI as he has full range of motion of his bilateral legs. Attempt was made to sit the patient up, but he states his pain is intractable. I once again discussed having him observed for intractable back pain as he is unable to get up and perform his ADLs. He was administered morphine intravenously after saline lock was inserted and basic labs obtained. I will discuss patient with the hospitalist for observation. Patient is in stable condition. Lab Data Labs: Laboratory Results - last 24 hr 02/20/23 10:35 WBC 8.9 RBC 5.32 Hgb 15.7 Hct 48.4 MCV 91.0 MCH 29.5 MCHC 32.4 RDW Std Deviation 44.0 H RDW Coeff of Jil 13.2 Plt Count 162 MPV 11.3 Immature Gran % (Auto) 0.400 Neut % (Auto) 80.2 H Lymph % (Auto) 10.0 L [place] % (Auto) 8.4 Eos % (Auto) 0.6 Baso % (Auto) 0.4 Absolute Neuts (auto) 7.2 Absolute Lymphs (auto) 0.89 Nucleated RBC % 0 Sodium 142 Potassium 4.1 Chloride 110 H Carbon Dioxide 28.0 Anion Gap 4 L BUN 21 H Creatinine 1.01 Estim Creat Clear Calc 67.23 Est GFR (MDRD) Af Amer 92 Est GFR (MDRD) Non-Af 76 BUN/Creatinine Ratio 20.8 H Glucose 119 H Calcium 8.9 Radiography Diagnostic Testing: Clinical Impression(s) from Imaging Studies Lumbar Spine CT 02/20/23 09:13 IMPRESSION: Multilevel degenerative changes, as described above. Electronically Signed: Garcia Newman MD at 9:52 EST , Management Discussion w/another healthcare provider: Hospitalist (Dr. Cruz) Discharge Plan Dx/Rx/DC Orders Clinical Impression: Spinal stenosis, Frequent falls, Intractable low back pain, Inability to perform activities of daily living, Degenerative joint disease of spine Disposition Disposition: Acute Care Hospital [facility] What to do if you have Problems For any increased pain, shortness of breath, bleeding, nausea or vomiting, chestpain, or any unexpected problems, contact your Primary Care Provider. Call [facility] ([phone]) or report to the closest Emergency Room. Call 911 if necessary. 02/20/23 1131 <Electronically signed by Caesar Andrew MD> Cosigner Signature (if applicable): CC: Dr. Jrody Saucedo MD ~ Signed [facility] Work Phone: 1([phone]) 201-164112-15-2023 Miscellaneous Notes* Telephone Encounter - Jackie Horner RN - 02/20/2023 11:27 AM EST Images from the original note were not included. Detailed message left on identified voicemail of message below. Jordy Saucedo MD 02/20/2023 10:40 AM EST Back to Top Test results are okay. Detailed review at follow up appointment. Jackie Horner RN [facility] Miscellaneous Notes* Telephone Encounter - Sal Whitley RPh - 02/16/2023 11:34 AM EST [facility] Anticoagulation Episode Summary Anticoagulation Care Providers Provider Role Specialty Phone number Jordy Saucedo MD Referring Internal Medicine [phone] Osman Jones is a 77 year old year old male patient being evaluated today for a Telemanagement visit. Patient is currently on the following anticoagulant(s) Warfarin. Labs PT INR (no units) Date Value 03/20/2022 2.6 [facility] 03/04/2022 2.3 [facility] 04/25/2021 2.6 INR (no units) Date Value 02/13/2023 3.1 01/16/2023 2.7 12/26/2022 4.0 CrCl cannot be calculated (Unknown ideal weight.). ALLERGIES Allergen Reactions Lisinopril Cough Indication for Warfarin: Anticoagulation Episode Summary Current INR goal: 2.0-3.0 Assessment: INR result of 3.1 is SUPRAtherapeutic due to: unknown cause - did not speak to patient Plan: Current Warfarin Dosing As of 02/16/2023 Full warfarin instructions: 02/17: 2.5 mg; Otherwise 5 mg every Thu, Thu, Thu; 2.5 mg all other days Left voice message Advised patient to decrease dose for 1 day only then resume weekly regimen Next INR check due on 03/23/2023 Patient instructed to call [facility] at [phone] with any questionsor concerns. Sal Whitley RPh Clinical Pharmacist, Pharmacy Anticoagulation Clinic [facility] Pager: [phone] documented in [facility] encounterNor[facility]12-08-2023 History of Present illness Narrative* Jordy Saucedo MD - 02/13/2023 10:38 AM EST This note was created using [employer]. Subjective Patient presents with: F/U 6 Month Immunizations: Flu vaccination Osman Jones is a 77 year old male here with his . He had not been seen for more than one year. He was admitted for frequent falls and back contusion 2021, and discharged to an ECF. He was in the [facility] for a few weeks and was discharged home with home health 2021. For some reason, he had not followed up, but continued to have his INR monitored, and his medications refilled. He indicated he was ambulating at home with a walker. There was concern about NPH but it seems the patient was not eager to pursue further evaluation or treatment. Referral made to neurology last year had no result. Review of Systems Constitutional: Negative for chills, fatigue, fever and unexpected weight change. HENT: Negative for congestion and trouble swallowing. Respiratory: Negative for cough, chest tightness and shortness of breath. Cardiovascular: Negative for chest pain, palpitations and leg swelling. Gastrointestinal: Negative for abdominal pain, blood in stool, constipation, diarrhea, nausea and vomiting. Genitourinary: Negative for difficulty urinating. Musculoskeletal: Positive for gait problem. Negative for arthralgias and back pain. Skin: Negative for wound. Neurological: Positive for dizziness. Negative for tremors, seizures, weakness, numbness and headaches. ACTIVE PROBLEM LIST Coronary Atherosclerosis PURE HYPERCHOLESTEROLEM Essential hypertension Impaired Fasting Glucose S/P Cabg X 2 Cerebral Ventriculomegaly Dizziness prison current use of anticoagulant Obesity, Class I, Bmi 30-34.9 Ischemic Cardiomyopathy Presence of Implantable Cardioverter-Defibrillator (Icd) Abnormality of Gait Social History Tobacco Use Smoking status: Former Packs/day: 0.25 Years: 15.00 Additional pack years: 0.00 Total pack years: 3.75 Types: Cigarettes Quit date: 03/09/1999 Years since quittin.9 Smokeless tobacco: Never Vaping Use Vaping Use: Never used Substance Use Topics Alcohol use: No Drug use: No Current Outpatient Medications Medication Sig warfarin (COUMADIN) 5 mg tablet Take 5 mg every Thu, Thu, Thu; 2.5 mg all other days or as directedby [facility]mad[facility] Clinic amLODIPine (NORVASC) 5 mg tablet Take 1 tablet by mouth once daily. metoprolol tartrate, short acting, (LOPRESSOR) 25 mg tablet Take 0.5 tablets by mouth twice daily. losartan (COZAAR) 50 mg tablet Take 1 tablet by mouth once daily. atorvastatin (LIPITOR) 80 mg tablet Take 1 tablet by mouth once daily. Takes 1/2 tab Thu, Thu &Thursday. 1 tab rest of days spironolactone (ALDACTONE) 25 mg tablet Take 1 tablet by mouth once daily. Dr. Escobar nitroglycerin sublingual (NITROQUICK) 0.4 mg SL tablet Dissolve 1 tablet under the tongue every 5 minutes as needed for Chest Pain. aspirin(ECOTRIN LOW STRENGTH 81 MG TAB) Take one(1) tablet daily. No current facility-administered medications for this visit. Objective BP 136/76 Pulse 62 Temp 36.9 C (98.5 F) (Temporal) Resp 16 Wt 102.8 kg (226 lb 9.6 oz) SpO2 96% BMI 31.60 kg/m Physical Exam Constitutional: General: He is not in acute distress. Appearance: He is not ill-appearing. HENT: Head: Atraumatic. Eyes: Extraocular Movements: Extraocular movements intact. Conjunctiva/sclera: Conjunctivae normal. Cardiovascular: Rate and Rhythm: Normal rate and regular rhythm. Heart sounds: No murmur heard. No gallop. Pulmonary: Breath sounds: Normal breath sounds. Abdominal: Palpations: Abdomen is soft. Tenderness: There is no abdominal tenderness. Musculoskeletal: Cervical back: Neck supple. Neurological: General: No focal deficit present. Mental Status: He is alert. Mental status is at baseline. Comments: Patient on wheelchair. Gait not tested. He uses a walker at home. Psychiatric: Attention and Perception: Attention normal. Mood and Affect: Mood normal. Assessment and Plan 1. Abnormality of gait - ICD9: 781.2, ICD10: R26.9 (primary diagnosis) - Clarify his wishes for further evaluation and treatment next visit. - TSH BLD - CK CREATINE KINASE 2. Need for influenza vaccination - ICD9: V04.81, ICD10: Z23 - INFLUENZA VACCINE, PRSV FREE, AGE 65+ YR, HIGH DOSE, QUADRIVALENT (FLUZONE HIGH-DOSE) 3. Need for COVID-19 vaccine - ICD9: V04.89, ICD10: Z23 - PFIZER-BIONTECH COVID-19 VACCINE (2022- [facility]) AGE 12+ YR 4. Essential hypertension - ICD9: 401.9, ICD10: I10 - Controlled - Continue current medications 5. Atherosclerosis of [place] [place] coronary artery of [place] heart without angina pectoris - ICD9: 414.01, ICD10: I25.10 - He [facility] not [facility] with [facility], as Dr. Escobar has relocated. He was still gettingdefibrillator checked. 6. Ischemic cardiomyopathy - ICD9: 414.8, ICD10: I25.5 He was encouraged to schedule with the [facility]. - CBC - PROTHROMBIN TIME/PT 7. Dizziness - ICD9: 780.4, ICD10: R42 Chronic, suspected NPH with no follow up. 8. Impaired fasting glucose - ICD9: 790.21, ICD10: R73.01 Recheck. - HGB A1C 9. PURE HYPERCHOLESTEROLEM - ICD9: 272.0, ICD10: E78.00 Recheck. - COMP METABOLIC PANEL - LIPID PANEL BASIC Jordy Saucedo MD documented in this encounterNorwalk [facility]11-07-2023 Miscellaneous Notes* Telephone Encounter - Tamia Carson LPN - 01/13/2023 1:22 PM EST Patient has been identified by name and date of : Yes Patient phones for refill(s): Requested Prescriptions Pending Prescriptions Disp Refills warfarin (COUMADIN) 5 mg tablet 60 tablet 3 Sig: Take 5 mg every Thu, Thu, Thu; 2.5 mg all other days or as directed by [facility] Date of last office visit in primary care: Visit date not found Date of next office visit in primary care: Visit date not found Last 2 Encounter Wt Readings: Date: Wt: 12/24/2021 104.8 kg (231 lb) 08/13/2021 102.1 kg (225 lb) Previous labs/tests for medication: Coumadin: PT INR (no units) Date Value 03/20/2022 2.6 Advantage C INR (no units) Date Value 12/26/2022 4.0 Please advise. Thank you. Tamia Carson LPN. * Telephone Encounter - Saniya Bazan - 01/13/2023 12:38 PM EST Patient has been identified by name and date of : Yes Requested Prescriptions Pending Prescriptions Disp Refills warfarin (COUMADIN) 5 mg tablet 60 tablet 3 Sig: Take 5 mg every Thu, Thu, Thu; 2.5 mg all other days or as directed by [facility] RX INSTRUCTIONS: Patient aware RX will be sent to pharmacy. No need to notify patient. Saniya Leger documented in this encounterNorwalk [facility] Hospital10-20-2023 Miscellaneous Notes* Telephone Encounter - Jeanette Munguia RPh - 12/26/2022 3:01 PM EDT [facility] Anticoagulation Episode Summary Anticoagulation Care Providers Provider Role Specialty Phone number Jordy Saucedo MD Referring Internal Medicine [phone] Osman Jones is a 76 year old year old male patient being evaluated today for a Telemanagement visit. Patient is currently on the following anticoagulant(s) Warfarin. Labs PT INR (no units) Date Value 03/20/2022 2.6 Ad[facility]age [facility] 03/04/2022 2.3 Advantage C 04/25/2021 2.6 INR (no units) Date Value 12/26/2022 4.0 11/28/2022 2.8 11/14/2022 3.2 Hemoglobin (g/dL) Date Value 04/25/2021 16.7 Hematocrit (%) Date Value 04/25/2021 52.0 Platelet Count (k/uL) Date Value 04/25/2021 154 Creatinine (mg/dL) Date Value 07/19/2021 1.03 04/25/2021 0.96 09/27/2020 0.98 12/26/2019 0.96 Bilirubin, Total (mg/dL) Date Value 07/19/2021 0.8 12/26/2019 0.7 ALT (U/L) Date Value 07/19/2021 27 12/26/2019 28 AST (U/L) Date Value 07/19/2021 30 12/26/2019 33 CrCl cannot be calculated (Patient's most recent lab result is older than the maximum 180 days allowed.). 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 Anticoagulation Episode Summary Current INR goal: 2.0-3.0 Assessment: INR result of 4.0 is SUPRAtherapeutic due to: unknown cause - did not speak to patient Plan: Current Warfarin Dosing As of 12/26/2022 Full warfarin instructions: 5 mg every Thu, Thu, Thu; 2.5 mg all other days Left voice message Advised patient to hold 2 doses then continue current regimen Next lab INR check scheduled on 01/16/2023 Advised patient to return call to PAC to confirm receiving the message Will add to critical list for weekend follow up due to elevated INR Jeanette Munguia RPh Clinical Pharmacist, Pharmacy Anticoagulation Clinic [facility] Pager: [phone]. documented in this encounterNorwalk Memorial Hospital09-22-2023 Miscellaneous Notes* Telephone Encounter - Jeanette Munguia RPh - 11/28/2022 3:20 PM EDT [facility] Anticoagulation Episode Summary Anticoagulation Care Providers Provider Role Specialty Phone number Jordy Saucedo MD Referring Internal Medicine [phone] Osman Jones is a 76 year old year old male patient being evaluated today for a Telemanagement visit. Patient is currently on the following anticoagulant(s) Warfarin. Labs PT INR (no units) Date Value 03/20/2022 2.6 Advantage [facility] 03/04/2022 2.3 Ad[facility]age [facility] 04/25/2021 2.6 INR (no units) Date Value 11/28/2022 2.8 11/14/2022 3.2 10/24/2022 3.4 Hemoglobin (g/dL) Date Value 04/25/2021 16.7 Hematocrit (%) Date Value 04/25/2021 52.0 Platelet Count (k/uL) Date Value 04/25/2021 154 Creatinine (mg/dL) Date Value 07/19/2021 1.03 04/25/2021 0.96 09/27/2020 0.98 12/26/2019 0.96 Bilirubin, Total (mg/dL) Date Value 07/19/2021 0.8 12/26/2019 0.7 ALT (U/L) Date Value 07/19/2021 27 12/26/2019 28 AST (U/L) Date Value 07/19/2021 30 12/26/2019 33 CrCl cannot be calculated (Patient's most recent lab result is older than the maximum 180 days allowed.). 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 Patient denies need for refills. Jeanette Munguia RPh Clinical Pharmacist, Pharmacy Anticoagulation Clinic Pharmacy Antico[facility] Pager: [phone]. documented in this encounterNorwalk Memorial Hospital09-08-2023 Miscellaneous Notes* Telephone Encounter - Jeanette Munguia RPh - 11/14/2022 3:57 PM EDT [facility] Anticoagulation Episode Summary Anticoagulation Care Providers Provider Role Specialty Phone number Jordy Saucedo MD Referring Internal Medicine [phone] Osman Jones is a 76 year old year old male patient being evaluated today for a Telemanagement visit. Patient is currently on the following anticoagulant(s) Warfarin. Labs PT INR (no units) Date Value 03/20/2022 2.6 Advantage [facility] 03/04/2022 2.3 [facility]age [facility] 04/25/2021 2.6 INR (no units) Date Value 11/14/2022 3.2 10/24/2022 3.4 09/19/2022 2.6 Hemoglobin (g/dL) Date Value 04/25/2021 16.7 Hematocrit (%) Date Value 04/25/2021 52.0 Platelet Count (k/uL) Date Value 04/25/2021 154 Creatinine (mg/dL) Date Value 07/19/2021 1.03 04/25/2021 0.96 09/27/2020 0.98 12/26/2019 0.96 Bilirubin, Total (mg/dL) Date Value 07/19/2021 0.8 12/26/2019 0.7 ALT (U/L) Date Value 07/19/2021 27 12/26/2019 28 AST (U/L) Date Value 07/19/2021 30 12/26/2019 33 CrCl cannot be calculated (Patient's most recent lab result is older than the maximum 180 days allowed.). ALLERGIES Allergen Reactions Lisinopril Cough Indication for Warfarin: prison current use of anticoagulant Anticoagulation Episode Summary Current INR goal: 2.0-3.0 Assessment: INR result of 3.2 is SUPRAtherapeutic due to: unknown cause - did not speak to patient Plan: Current Warfarin Dosing As of 11/14/2022 Full warfarin instructions: 11/14: Hold; Otherwise 5 mg every Thu, Thu, Swapna; 2.5 mg all other days Left voice message Advised patient to hold 1 dose then continue current regimen Next lab INR check scheduled on 11/28/2022 Jeanette Munguia RPh Clinical Pharmacist, Pharmacy Anticoagulation Clinic Pharmacy Antico[facility] Clinic Pager: [phone]. documented in this encounterNorwalk Memorial Hospital08-18-2023 Miscellaneous Notes* Telephone Encounter - Jeanette Munguia RPh - 10/24/2022 4:00 PM EDT [facility] Anticoagulation Episode Summary Anticoagulation Care Providers Provider Role Specialty Phone number Jordy Saucedo MD Referring Internal Medicine [phone] Osman Jones is a 76 year old year old male patient being evaluated today for a Telemanagement visit. Patient is currently on the following anticoagulant(s) Warfarin. Labs PT INR (no units) Date Value 03/20/2022 2.6 Advantage C 03/04/2022 2.3 Advantage C 04/25/2021 2.6 INR (no units) Date Value 10/24/2022 3.4 09/19/2022 2.6 08/15/2022 2.8 Hemoglobin (g/dL) Date Value 04/25/2021 16.7 Hematocrit (%) Date Value 04/25/2021 52.0 Platelet Count (k/uL) Date Value 04/25/2021 154 Creatinine (mg/dL) Date Value 07/19/2021 1.03 04/25/2021 0.96 09/27/2020 0.98 12/26/2019 0.96 Bilirubin, Total (mg/dL) Date Value 07/19/2021 0.8 12/26/2019 0.7 ALT (U/L) Date Value 07/19/2021 27 12/26/2019 28 AST (U/L) Date Value 07/19/2021 30 12/26/2019 33 CrCl cannot be calculated (Patient's most recent lab result is older than the maximum 180 days allowed.). ALLERGIES Allergen Reactions Lisinopril Cough Indication for Warfarin: prison current use of anticoagulant Anticoagulation Episode Summary Current INR goal: 2.0-3.0 Assessment: INR result of 3.4 is SUPRAtherapeutic due to: unknown cause - did not speak to patient Plan: Current Warfarin Dosing As of 10/24/2022 Full warfarin instructions: 10/24: Hold; Otherwise 5 mg every Thu, Thu, Thu; 2.5 mg all other days Left voice message Advised patient to hold 1 dose then continue current regimen Next lab INR check scheduled on 11/07/2022 Jeanette Munguia [facility] Clinical Pharmacist, Pharmacy Anticoagulation Clinic Pharmacy Anticoagulation Clinic Pager: [phone]. documented in this encounterNorwalk Memorial Hospital07-14-2023 Miscellaneous Notes* Telephone Encounter - Jeanette Munguia RPh - 09/19/2022 3:36 PM EDT [facility] Anticoagulation Episode Summary Anticoagulation Care Providers Provider Role Specialty Phone number Jordy Saucedo MD Referring Internal Medicine [phone] Osman Jones is a 76 year old year old male patient being evaluated today for a Telemanagement visit. Patient is currently on the following anticoagulant(s) Warfarin. Labs PT INR (no units) Date Value 03/20/2022 2.6 [facility]age [facility] 03/04/2022 2.3 [facility] 04/25/2021 2.6 INR (no units) Date Value 09/19/2022 2.6 08/15/2022 2.8 07/11/2022 2.6 Hemoglobin (g/dL) Date Value 04/25/2021 16.7 Hematocrit (%) Date Value 04/25/2021 52.0 Platelet Count (k/uL) Date Value 04/25/2021 154 Creatinine (mg/dL) Date Value 07/19/2021 1.03 04/25/2021 0.96 09/27/2020 0.98 12/26/2019 0.96 Bilirubin, Total (mg/dL) Date Value 07/19/2021 0.8 12/26/2019 0.7 ALT (U/L) Date Value 07/19/2021 27 12/26/2019 28 AST (U/L) Date Value 07/19/2021 30 12/26/2019 33 CrCl cannot be calculated (Patient's most recent lab result is older than the maximum 180 days allowed.). ALLERGIES Allergen Reactions Lisinopril Cough Indication for Warfarin: prison current use of anticoagulant Anticoagulation Episode Summary Current INR goal: 2.0-3.0 Assessment: INR result of 2.6 is therapeutic Plan: Current Warfarin Dosing As of 09/19/2022 Full warfarin instructions: 5 mg every Thu, e, Swapna; 2.5 mg all other days Called and spoke to patient/caregiver Advised patient to continue current weekly dose as noted above Next lab INR check scheduled on 10/24/2022 Patient verbalizes understanding of the plan. Patient denies need for refills. Jeanette Munguia RPh Clinical Pharmacist, Pharmacy Anticoagulation Clinic Pharmacy Anticoagulation Clinic Pager: [phone]. documented in this encounterNorwalk Memorial Hospital06-14-2023 History of Present illness Narrative* Tamia Carson LPN - 08/20/2022 3:01 PM EDT POPULATION HEALTH NAVIGATION OUTREACH Action/FYI Hypertension Patient Identified by Name and : YES, via phone Outreach Outcome/Action Spoke to Osman, unable to schedule, getting an Insurance Denial, will need to be cleared financially first. Did you use a PCP flex slot to schedule this appointment? No Reason for Outreach [facility] HTN Management Payer: Payor: [employer] / Plan: [employer] HMO / Product Type: HMO / Care Gap Reviewed:: N/A Reminder: Reminder note to check Health Maintenance for items below Health Maintenance items due: BP CONTROLLED (<130/80) Never done ADVANCE DIRECTIVE DISCUSSION Never done DEPRESSION ASSESSMENT Never done LDL CHOLESTEROL due on 04/25/2022 Navigation Signature: Tamia Carson LPN August 20, 2022 3:02 PM documented in this encounterNorwalk Memorial Hospital05-05-2023 Miscellaneous Notes* Telephone Encounter - Jeanette Munguia RPh - 07/11/2022 3:24 PM EDT [facility] Anticoagulation Episode Summary Anticoagulation Care Providers Provider Role Specialty Phone number Jordy Saucedo MD Referring Internal Medicine [phone] Osman Jones is a 76 year old year old male patient being evaluated today for a Telemanagement visit. Patient is currently on the following anticoagulant(s) Warfarin. Labs PT INR (no units) Date Value 03/20/2022 2.6 [facility]age [facility] 03/04/2022 2.3 [facility]age [facility] 04/25/2021 2.6 INR (no units) Date Value 07/11/2022 2.6 06/13/2022 2.4 05/09/2022 2.1 Hemoglobin (g/dL) Date Value 04/25/2021 16.7 Hematocrit (%) Date Value 04/25/2021 52.0 Platelet Count (k/uL) Date Value 04/25/2021 154 Creatinine (mg/dL) Date Value 07/19/2021 1.03 04/25/2021 0.96 09/27/2020 0.98 12/26/2019 0.96 Bilirubin, Total (mg/dL) Date Value 07/19/2021 0.8 12/26/2019 0.7 ALT (U/L) Date Value 07/19/2021 27 12/26/2019 28 AST (U/L) Date Value 07/19/2021 30 12/26/2019 33 CrCl cannot be calculated (Patient's most recent lab result is older than the maximum 180 days allowed.). 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 documented in this encounterNorwalk Memorial Hospital04-07-2023 Miscellaneous Notes* Telephone Encounter - Jeana Arriaga RPh - 06/13/2022 1:53 PM EDT [facility] Anticoagulation Episode Summary Anticoagulation Care Providers Provider Role Specialty Phone number Jordy Saucedo MD Referring Internal Medicine [phone] Osman Jones is a 76 year old year old male patient being evaluated today for a Lab INR. Patient is currently on the following anticoagulant(s) Warfarin. Labs PT INR (no units) Date Value 03/20/2022 2.6 [facility]age [facility] 03/04/2022 2.3 [facility] 04/25/2021 2.6 INR (no units) Date Value 06/13/2022 2.4 05/09/2022 2.1 04/11/2022 3.0 Hemoglobin (g/dL) Date Value 04/25/2021 16.7 Hematocrit (%) Date Value 04/25/2021 52.0 Platelet Count (k/uL) Date Value 04/25/2021 154 Creatinine (mg/dL) Date Value 07/19/2021 1.03 04/25/2021 0.96 09/27/2020 0.98 12/26/2019 0.96 Bilirubin, Total (mg/dL) Date Value 07/19/2021 0.8 12/26/2019 0.7 ALT (U/L) Date Value 07/19/2021 27 12/26/2019 28 AST (U/L) Date Value 07/19/2021 30 12/26/2019 33 CrCl cannot be calculated (Patient's most recent lab result is older than the maximum 180 days allowed.). ALLERGIES Allergen Reactions Lisinopril Cough Indication for Warfarin: Anticoagulation Episode Summary Current INR goal: 2.0-3.0 Assessment: INR result of 2.4 is therapeutic Plan: Current Warfarin Dosing As of 06/13/2022 Full warfarin instructions: 5 mg every Thu, e, Swapna; 2.5 mg all other days Left voice message Advised patient to continue current weekly dose as noted above Next lab INR check scheduled on 07/11/2022 Jeana Arriaga RPh Clinical Pharmacist, Pharmacy Anticoagulation Clinic Pharmacy Anticoagulation Clinic Pager: [phone]. documented in this encounterNorwalk Memorial Hospital03-03-2023 Miscellaneous Notes* Telephone Encounter - Sulma Jackson RPh - 05/09/2022 12:12 PM EST [facility] Anticoagulation Episode Summary Anticoagulation Care Providers Provider Role Specialty Phone number Jordy Saucedo MD Referring Internal Medicine [phone] Osman Jones is a 76 year old year old male patient being evaluated today for a Lab INR. Patient is currently on the following anticoagulant(s) Warfarin. Labs PT INR (no units) Date Value 03/20/2022 2.6 [facility]age [facility] 03/04/2022 2.3 [facility]age [facility] 04/25/2021 2.6 INR (no units) Date Value 05/09/2022 2.1 04/11/2022 3.0 12/27/2021 2.5 Hemoglobin (g/dL) Date Value 04/25/2021 16.7 Hematocrit (%) Date Value 04/25/2021 52.0 Platelet Count (k/uL) Date Value 04/25/2021 154 Creatinine (mg/dL) Date Value 07/19/2021 1.03 04/25/2021 0.96 09/27/2020 0.98 12/26/2019 0.96 Bilirubin, Total (mg/dL) Date Value 07/19/2021 0.8 12/26/2019 0.7 ALT (U/L) Date Value 07/19/2021 27 12/26/2019 28 AST (U/L) Date Value 07/19/2021 30 12/26/2019 33 CrCl cannot be calculated (Patient's most recent lab result is older than the maximum 180 days allowed.). 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 Patient denies need for refills. Sulma Jackson RPh Clinical Pharmacist, Pharmacy Anticoagulation Clinic Pharmacy Anticoagulation Clinic Pager: [phone]. documented in this encounterNorwalk Memorial Hospital03-01-2023 Miscellaneous Notes* [place]phone En[place] [facility] [place] 3:39 PM EST Patient calling to check the status of this refill. Please send as soon as possible . * Telephone Encounter - Shona Goins LPN - 05/06/2022 2:44 PM EST Last seen pcp 12/24/21. * Telephone Encounter - Lucy Hubbard - 05/06/2022 1:16 PM EST Patient has been identified by name and date of : Yes Requested Prescriptions Pending Prescriptions Disp Refills amLODIPine (NORVASC) 5 mg tablet 90 tablet 1 Sig: Take 1 tablet by mouth once daily. metoprolol tartrate, short acting, (LOPRESSOR) 25 mg tablet 90 tablet 3 Sig: Take 0.5 tablets by mouth twice daily. losartan (COZAAR) 50 mg tablet 90 tablet 3 Sig: Take 1 tablet by mouth once daily. warfarin (COUMADIN) 5 mg tablet 60 tablet 3 Sig: Take 5 mg every Thu, Thu, Thu; 2.5 mg all other days or as directed by Coumadin Clinic RX INSTRUCTIONS: Patient aware RX will be sent to pharmacy. No need to notify patient. Lucy Hubbard documented in this encounterNorwalk Memorial Hospital02-24-2023 Miscellaneous Notes* Telephone Encounter - Shona Goins LPN - 05/02/2022 2:33 PM EST No PA available to complete. Called the pharmacy and they report this was filled 2 days ago with [employer]. * Telephone Encounter - Edith Chung APRN.CNP - 04/30/2022 7:42 AM EST The following approved medication requests have been transmitted electronically. Requested Prescriptions Signed Prescriptions Disp Refills atorvastatin (LIPITOR) 80 mg tablet 90 tablet 3 Sig: Take 1 tablet by mouth once daily. Takes 1/2 tab Mon, Wed & Thursday. 1 tab rest of days Authorizing Provider: EDITH CHUNG APRN.CNP * Telephone Encounter - Shona Goins LPN - 04/22/2022 10:57 AM EST Electronic PA requested. Per med list new rx would be needed too. * Telephone Encounter - Marlena Huang Pss - 04/21/2022 12:11 PM EST Patient called states needs prior authorization for Atorvasatin Calcium. He received letter from [employer]. Please call patient back at [phone] or [phone]. documented in this encounterNorwalk Memorial Hospital02-03-2023 Miscellaneous Notes* Telephone Encounter - Jeanette Munguia RPh - 04/11/2022 2:28 PM EST [facility] Anticoagulation Episode Summary Anticoagulation Care Providers Provider Role Specialty Phone number Jordy Saucedo MD Referring Internal Medicine [phone] Osman Jones is a 76 year old year old male patient being evaluated today for a Telemanagement visit. Patient is currently on the following anticoagulant(s) Warfarin. Labs PT INR (no units) Date Value 03/20/2022 2.6 [facility] 03/04/2022 2.3 [facility] 04/25/2021 2.6 INR (no units) Date Value 04/11/2022 3.0 12/27/2021 2.5 11/28/2021 3.0 Hemoglobin (g/dL) Date Value 04/25/2021 16.7 Hematocrit (%) Date Value 04/25/2021 52.0 Platelet Count (k/uL) Date Value 04/25/2021 154 Creatinine (mg/dL) Date Value 07/19/2021 1.03 04/25/2021 0.96 09/27/2020 0.98 12/26/2019 0.96 Bilirubin, Total (mg/dL) Date Value 07/19/2021 0.8 12/26/2019 0.7 ALT (U/L) Date Value 07/19/2021 27 12/26/2019 28 AST (U/L) Date Value 07/19/2021 30 12/26/2019 33 CrCl cannot be calculated (Patient's most recent lab result is older than the maximum 180 days allowed.). 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 Patient denies need for refills. Jeanette Munguia RPh Clinical Pharmacist, Pharmacy Anticoagulation Clinic Pharmacy Anticoagulation Clinic Pager: [phone]. documented in this encounterNorwalk Memorial Hospital01-10-2023 Miscellaneous Notes* Telephone Encounter - Jeana Arriaga RPh - 03/18/2022 3:00 PM EST Spoke to Celeste at [facility] [phone]. She is the welfare case worker. She isn't sure why INR was not drawn today. She will have nurse draw INR on 03/20 documented in this encounterNorwalk Memorial Hospital12-27-2022 Miscellaneous Notes* Telephone Encounter - Ryanne Telles RPh - 03/04/2022 4:11 PM EST [facility] Anticoagulation Episode Summary Anticoagulation Care Providers Provider Role Specialty Phone number Jordy Saucedo MD Referring Internal Medicine [phone] Osman Jones is a 76 year old year old male patient being evaluated today for a Telemanagement visit. Patient is currently on the following anticoagulant(s) Warfarin. Labs PT INR (no units) Date Value 03/04/2022 2.3 [facility] 04/25/2021 2.6 03/28/2021 Test sent to [facility]. INR (no units) Date Value 12/27/2021 2.5 11/28/2021 3.0 10/30/2021 2.1 Hemoglobin (g/dL) Date Value 04/25/2021 16.7 Hematocrit (%) Date Value 04/25/2021 52.0 Platelet Count (k/uL) Date Value 04/25/2021 154 Creatinine (mg/dL) Date Value 07/19/2021 1.03 04/25/2021 0.96 09/27/2020 0.98 12/26/2019 0.96 Bilirubin, Total (mg/dL) Date Value 07/19/2021 0.8 12/26/2019 0.7 ALT (U/L) Date Value 07/19/2021 27 12/26/2019 28 AST (U/L) Date Value 07/19/2021 30 12/26/2019 33 CrCl cannot be calculated (Patient's most recent lab result is older than the maximum 180 days allowed.). ALLERGIES Allergen Reactions Lisinopril Cough Indication for Warfarin: prison current use of anticoagulant Anticoagulation Episode Summary Current INR goal: 2.0-3.0 Assessment: INR result of 2.3 [facility] is therapeutic Plan: Current Warfarin Dosing As of 03/04/2022 Full warfarin instructions: 5 mg every Thu, e, Swapna; 2.5 mg all other days; Starting 03/04/2022 Left voice message Advised patient to continue current weekly dose as noted above Next home INR check scheduled on 03/18/2022. Pt advised to let [facility] team know to check by this date Pt advised to call PAC if there are any questions, concerns, or changes to report. Ryanne Telles RPh Clinical Pharmacist, Pharmacy Anticoagulation Clinic Pharmacy Anticoagulation Clinic Pager: [phone]. * Telephone Encounter - Angelica Miramontes ([employer]cker) - 03/04/2022 3:59 PM EST PAC received faxed outside lab/home meter result for patient. Results have been scanned into patient's chart and are located under 'Scanned Documents'. Please note, may take up to 10 minutes for document to transfer from [employer] to [facility]. Of note, also removed from DC list. PT INR (no units) Date Value 03/04/2022 2.3 [facility] 04/25/2021 2.6 03/28/2021 Test sent to [facility]. INR (no units) Date Value 12/27/2021 2.5 11/28/2021 3.0 10/30/2021 2.1 Angelica Miramontes CPhT (Market Research Consultant) Pharmacy Anticoagulation Clinic documented in this encounterNorwalk Memorial Hospital12-22-2022 Miscellaneous Notes* Telephone Encounter - Alex Sanchez LPN - 02/27/2022 11:53 AM EST Celeste from [facility] calling to let pcp know they received referral. She reports they opened patient's case today for correction and PT. Alex Sanchez LPN documented in this encounterNorwalk Memorial Hospital12-21-2022 Miscellaneous Notes* Telephone Encounter - Jason Cabello RN - 02/26/2022 9:29 AM EST Call placed to Shireen with [facility] and verbal orders given for PCP to follow for home care SN/PT. Jason Cabello RN * Telephone Encounter - Edith Chung APRN.CNP - 02/26/2022 9:25 AM EST PCP agrees and will follow Edith Chung APRN.CNP * Telephone Encounter - Jason Cabello RN - 02/26/2022 9:10 AM EST Shireen Davalos calls to see if provider will follow home care orders for SN and PT. Patient discharged from [facility] on 02/24/2022 after receiving care for cardiomyopathy. Please call verbal orders to [phone]. Jason Cabello RN documented in this encounterNorwalk Memorial Hospital10-21-2022 Miscellaneous Notes* Telephone Encounter - Jeanette Munguia [facility] - 12/27/2021 3:24 PM EDT [facility] Anticoagulation Episode Summary Anticoagulation Care Providers Provider Role Specialty Phone number Jordy Saucedo MD Referring Internal Medicine [phone] Osman Jones is a 75 year old year old male patient being evaluated today for a Telemanagement visit. Patient is currently on the following anticoagulant(s) Warfarin. Labs PT INR (no units) Date Value 04/25/2021 2.6 03/28/2021 Test sent to [facility]. 03/28/2021 2.4 INR (no units) Date Value 12/27/2021 2.5 11/28/2021 3.0 10/30/2021 2.1 Hemoglobin (g/dL) Date Value 04/25/2021 16.7 Hematocrit (%) Date Value 04/25/2021 52.0 Platelet Count (k/uL) Date Value 04/25/2021 154 Creatinine (mg/dL) Date Value 07/19/2021 1.03 04/25/2021 0.96 09/27/2020 0.98 12/26/2019 0.96 Bilirubin, Total (mg/dL) Date Value 07/19/2021 0.8 12/26/2019 0.7 ALT (U/L) Date Value 07/19/2021 27 12/26/2019 28 AST (U/L) Date Value 07/19/2021 30 12/26/2019 33 Estimated Creatinine Clearance: 76.3 mL/min (based on SCr of 1.03 mg/dL). 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 Patient denies need for refills. Jeanette Munguia RPh Clinical Pharmacist, Pharmacy Anticoagulation Clinic Pharmacy Anticoagulation Clinic Pager: [phone]. documented in this encounterNorwalk Memorial Hospital10-19-2022 Miscellaneous Notes* Telephone Encounter - Mindi Pritchett RPh - 12/25/2021 3:48 PM EDT Patient due to test INR today. Will continue to monitor for results. Midni Pritchett RPh documented in this encounterNorwalk Memorial Hospital10-18-2022 Instructions* Patient Instructions* Edith Chung APRN.CNP - 12/24/2021 11:48 AM EDT Please call your insurance to find neurologist that is covered by your insurance Bring blood pressure cuff with you to next appointment documented in this encounterNorwalk Memorial Hospital10-18-2022 History of Present illness Narrative* Edith Chung APRN.CNP - 12/24/2021 11:42 AM EDT CC: Patient presents with: Follow Up HPI Osman Jones is a 75 year old male who presents today for above. HTN-BP was elevated at appointment 3 months ago. He had cardiology follow-up after that and was still elevated. No medication changes made due to concerns about making dizziness worse. Taking all medications as prescribed: Yes Side effects: No Home BP's: Yes checks occasionally, reportedly in the 120's/70's on average Denies: headache, chest pain, palpitations, dyspnea, and peripheral edema. Last 3 Encounter BP Readings: Date: BP: 12/24/2021 154/82 08/13/2021 142/78 05/02/2021 145/81 He has chronic dizziness, gait and balance problems. Reported at follow-up 3 months ago things wereprogressively worsening and experiencing sudden falls without warning. He was evaluated by neurology a few years ago for this however did not have all testing done that was recommended. Referred to [facility] neurology [address] Pena does not take his insurance. He has not made any attempts to find neurologist that is covered. No worsening or new symptoms. 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 09/2013: Cardiac cath EF 35-40%. LAD mid-vessel lesion. CABG recommended. 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 per Dr. Levin consisting of left internal mammary artery to left anterior descending coronary artery and reverse saphenous vein graft to first obtuse marginal coronary artery. PAST SURGICAL HISTORY Procedure Laterality Date AICD, SINGLE CHAMBER 04/14/2019 APPENDECTOMY 1980 CABG (2) VEIN GRAFTS & ARTERIAL GRAFT(S 10/22/2016 COLONOSCOPY BX SINGLE/MULTI 01/18/2020 sigmoid polyp, sigmoid diverticulosis. COLONOSCOPY FLX DX W/COLLJ SPEC WHEN PFRMD 06/26/2008 Colonoscopy LEFT HEART CATH,PERCUTANEOUS 09/16/2013 Cardiac cath, L heart PAST SURGICAL HISTORY OF 04/08/1967 shrapnel removed from right shoulder PAST SURGICAL HISTORY OF 04/12/08 tooth extraction PERC TRANSL COR ANGIO September 1995 Percutaneous Transluminal Coronary Angio Status TONSILLECTOMY PRIMARY/SECONDARY <AGE 12 1953 Tonsillectomy alone childhood ALLERGIES Lisinopril MEDICATIONS amLODIPine (NORVASC) 2.5 mg tablet Take 1 tablet by mouth once daily. spironolactone (ALDACTONE) 25 mg tablet Take 1 tablet by mouth once daily. Dr. Escobar warfarin (COUMADIN) 5 mg tablet Take 5 mg every Thu, Thu, Thu; 2.5 mg all other days or as directedby [facility] metoprolol tartrate, short acting, (LOPRESSOR) 25 mg tablet Take 0.5 tablets by mouth twice daily. losartan (COZAAR) 50 mg tablet Take 1 tablet by mouth once daily. atorvastatin (LIPITOR) 80 mg tablet Take 1 tablet by mouth once daily. Takes 1/2 tab Thu, Thu &Thursday. 1 tab rest of days nitroglycerin sublingual (NITROQUICK) 0.4 mg SL tablet Dissolve 1 tablet under the tongue every 5 minutes as needed for Chest Pain. aspirin(ECOTRIN LOW STRENGTH 81 MG TAB) Take one(1) tablet daily. FAMILY HISTORY Problem Relation Age of Onset Hypertension Mother cardiac arrest age 80 None Father age 89 other (abdominal aneurysm) Father Hypertension Brother other (Age related debility) Brother Social History Tobacco Use Smoking status: Former Packs/day: 0.25 Years: 15.00 Pack years: 3.75 Types: Cigarettes Quit date: 03/09/1999 Years since quittin.8 Smokeless tobacco: Never Vaping Use Vaping Use: Never used Substance Use Topics Alcohol use: No Drug use: No PHYSICAL EXAM BP 154/82 Pulse 64 Resp 14 Wt 104.8 kg (231 lb) BMI 32.22 kg/m General Appearance: well appearing, in no acute distress, alert Lungs: Lungs clear to auscultation. No wheezing, rhonchi, rales. Heart: RRR without murmur, gallop, or rubs. No ectopy Health maintenance reviewed with patient: BP CONTROLLED (<130/80) Never done ADVANCE DIRECTIVE DISCUSSION Never done DEPRESSION ASSESSMENT Never done INFLUENZA(1) due on 11/07/2021 COVID-19 VACCINE(4 - Booster for Pfizer series) due on 12/24/2022 LDL CHOLESTEROL due on 04/25/2022 ANNUAL PCP TEAM CHRONIC DISEASE VISIT due on 08/13/2022 DIABETES SCREEN due on 07/19/2024 COLORECTAL CANCER SCREENING due on 01/17/2025 LIPID SCREEN due on 04/25/2026 DTAP,TDAP,TD(3 - Td or Tdap) due on 07/29/2030 HEPATITIS C SCREENING Completed SHINGRIX VACCINE Completed PNEUMOCOCCAL: 65+ Completed DATA REVIEWED: Most recent labs ASSESSMENT/PLAN: 1. Essential hypertension - ICD9: 401.9, ICD10: I10 (primary diagnosis) - suboptimal control - Increase Norvasc to 5 mg daily. Patient will let me know if this makes dizziness worse and can decrease back down to 2.5 mg - Recommended regular aerobic exercise. - Recommend home blood pressure monitoring more often, to bring results and machine in on next visit - Recheck in 3 months, sooner should new symptoms or problems arise. - Goal of BP <130/80 - AMLODIPINE 5 MG TABLET 2. Dizziness - ICD9: 780.4, ICD10: R42 Stable. He does not have transportation to travel long distances. Recommend checking with this insurance for closest covered provider. He verbalized understanding 3. Abnormality of gait - ICD9: 781.2, ICD10: R26.9 As above 4. Encounter for immunization - ICD9: V03.89, ICD10: Z23 - INFLUENZA SEASONAL QUADRIVALENT HIGH DOSE AGE 65+ Edith Chung APRN.CNP Prescription instructions reviewed with patient as applicable. Potential red flag symptoms discussed with the patient. Reviewed appropriate action plan to take if red flag symptoms occur. Patient agreeable to treatment plan. Edith Chung APRN.CNP documented in this encounterNorwalk Memorial Hospital08-24-2022 Miscellaneous Notes* Telephone Encounter - Eli Rosa RPh - 10/30/2021 2:49 PM EDT [facility] Anticoagulation Episode Summary Anticoagulation Care Providers Provider Role Specialty Phone number Jordy Saucedo MD Referring Internal Medicine [phone] Osman Jones is a 75 year old year old male patient being evaluated today for a Lab INR. Patient is currently on the following anticoagulant(s) Warfarin. Labs PT INR (no units) Date Value 04/25/2021 2.6 03/28/2021 Test sent to [facility]. 03/28/2021 2.4 INR (no units) Date Value 10/30/2021 2.1 09/30/2021 2.5 08/30/2021 2.4 Hemoglobin (g/dL) Date Value 04/25/2021 16.7 Hematocrit (%) Date Value 04/25/2021 52.0 Platelet Count (k/uL) Date Value 04/25/2021 154 Creatinine (mg/dL) Date Value 07/19/2021 1.03 04/25/2021 0.96 09/27/2020 0.98 12/26/2019 0.96 Bilirubin, Total (mg/dL) Date Value 07/19/2021 0.8 12/26/2019 0.7 ALT (U/L) Date Value 07/19/2021 27 12/26/2019 28 AST (U/L) Date Value 07/19/2021 30 12/26/2019 33 Estimated Creatinine Clearance: 75.4 mL/min (based on SCr of 1.03 mg/dL). ALLERGIES Allergen Reactions Lisinopril Cough Indication for Warfarin: prison current use of anticoagulant Anticoagulation Episode Summary Current INR goal: 2.0-3.0 Assessment: INR result of 2.1 is therapeutic Plan: Current Warfarin Dosing As of 10/30/2021 Full warfarin instructions: 5 mg every Sun, e, Swapna; 2.5 mg all other days Called and spoke to patient/caregiver Advised patient to continue current weekly dose as noted above Next lab INR check scheduled on 11/27/2021 Patient verbalizes understanding of the plan. Patient denies need for refills. Eli Rosa RPh Clinical Pharmacist, Pharmacy Anticoagulation Clinic Pharmacy Anticoagulation Clinic Pager: [phone]. documented in this encounterNorwalk Memorial Hospital07-25-2022 Miscellaneous Notes* Telephone Encounter - Sal Whitley RPh - 09/30/2021 3:15 PM EDT [facility] Anticoagulation Episode Summary Anticoagulation Care Providers Provider Role Specialty Phone number Jordy Saucedo MD Referring Internal Medicine [phone] Osman Jones is a 75 year old year old male patient being evaluated today for a Telemanagement visit. Patient is currently on the following anticoagulant(s) Warfarin. Labs PT INR (no units) Date Value 04/25/2021 2.6 03/28/2021 Test sent to [facility]. 03/28/2021 2.4 INR (no units) Date Value 09/30/2021 2.5 08/30/2021 2.4 07/30/2021 2.4 Estimated Creatinine Clearance: 75.4 mL/min (based on SCr of 1.03 mg/dL). ALLERGIES Allergen Reactions Lisinopril Cough Indication for Warfarin: Anticoagulation Episode Summary Current INR goal: 2.0-3.0 Assessment: INR result of 2.5 is therapeutic Plan: Current Warfarin Dosing As of 09/30/2021 Full warfarin instructions: 5 mg every Thu, Thu, Thu; 2.5 mg all other days Called and spoke to patient/caregiver Advised patient to continue current weekly dose as noted above Next INR check due on 11/11/2021 Patient verbalizes understanding of the plan. Sal Whitley RPh Clinical Pharmacist, Pharmacy Anticoagulation Clinic Pharmacy Anticoagulation Clinic Pager: [phone]. documented in this encounterNorwalk Memorial Hospital06-24-2022 Miscellaneous Notes* Telephone Encounter - Jeanette Munguia RPh - 08/30/2021 3:34 PM EDT [facility] Anticoagulation Episode Summary Anticoagulation Care Providers Provider Role Specialty Phone number Jordy Saucedo MD Referring Internal Medicine [phone] Osman Jones is a 75 year old year old male patient being evaluated today for a Telemanagement visit. Patient is currently on the following anticoagulant(s) Warfarin. Labs PT INR (no units) Date Value 04/25/2021 2.6 03/28/2021 Test sent to [facility]. 03/28/2021 2.4 INR (no units) Date Value 08/30/2021 2.4 07/30/2021 2.4 07/19/2021 2.2 Hemoglobin (g/dL) Date Value 04/25/2021 16.7 Hematocrit (%) Date Value 04/25/2021 52.0 Platelet Count (k/uL) Date Value 04/25/2021 154 Creatinine (mg/dL) Date Value 07/19/2021 1.03 04/25/2021 0.96 09/27/2020 0.98 12/26/2019 0.96 Bilirubin, Total (mg/dL) Date Value 07/19/2021 0.8 12/26/2019 0.7 ALT (U/L) Date Value 07/19/2021 27 12/26/2019 28 AST (U/L) Date Value 07/19/2021 30 12/26/2019 33 Estimated Creatinine Clearance: 75.4 mL/min (based on SCr of 1.03 mg/dL). 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 Patient denies need for refills. Jeanette Mungiua RPh Clinical Pharmacist, Pharmacy Anticoagulation Clinic Pharmacy Anticoagulation Clinic Pager: [phone] . documented in this encounterNorwalk Memorial Hospital06-21-2022 Miscellaneous Notes* Telephone Encounter - Jeana Arriaga RPh - 08/27/2021 4:58 PM EDT Osman Jones was called and reminded to test INR today or as soon as possible. Stated he will go 08/30. Jeana Arriaga RPh documented in this encounterNorwalk Memorial Hospital06-07-2022 Instructions* Patient Instructions* Jordy Saucedo MD - 08/13/2021 10:57 AM EDT Have you ever planned for future healthcare decisions with a power of employment law attorney, living will, or advance directives? Yes. Have you shared those records with your doctor? No and No. Please bring a copyto your next appointment or email to documented in this encounterNorwalk Memorial Hospital06-07-2022 History of Present illness Narrative* Jordy Saucedo MD - 08/13/2021 10:34 AM EDT Patient presents with: Yearly Exam Osman Jones was here for his annual physical. His hypertension was elevated today. He was scheduled to see cardiology later this month. His gait and balance was progressively worse. He described sudden falls without warning. It became apparent he was not following up with neurology. He was evaluated by Dr. 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 Lumbar puncture was recommended, but not done. He switched neurologist to Dr. Jurado and had nerve testing for neuropathy, which he recalled was negative. There was no follow up after that. [facility], and Dr. Caldwell for ophthalmology. 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 per Dr. Levin consisting of left internal mammary artery to left anterior descending coronary artery and reverse saphenous vein graft to first obtuse marginal coronary artery. Unspecified cardiovascular disease 10/30/2004 Unspecified essential hypertension 10/30/2004 PAST SURGICAL HISTORY Procedure Laterality Date AICD, SINGLE CHAMBER 04/14/2019 APPENDECTOMY 1981 CABG (2) VEIN GRAFTS & ARTERIAL GRAFT(S 10/22/2016 COLONOSCOPY BX SINGLE/MULTI 01/18/2020 sigmoid polyp, sigmoid diverticulosis. COLONOSCOPY FLX DX W/COLLJ SPEC WHEN PFRMD 06/26/2008 Colonoscopy LEFT HEART CATH,PERCUTANEOUS 09/16/2013 Cardiac cath, L heart PAST SURGICAL HISTORY OF 04/08/1967 shrapnel removed from right shoulder PAST SURGICAL HISTORY OF 04/12/08 tooth extraction PERC TRANSL COR ANGIO September 1995 Percutaneous Transluminal Coronary Angio Status TONSILLECTOMY PRIMARY/SECONDARY <AGE 12 1953 Tonsillectomy alone childhood ALLERGIES: Lisinopril Medications reviewed: Yes Current Outpatient Medications Medication Sig amLODIPine (NORVASC) 2.5 mg tablet Take 1 tablet by mouth once daily. spironolactone (ALDACTONE) 25 mg tablet Take 1 tablet by mouth once daily. Dr. Escobar warfarin (COUMADIN) 5 mg tablet Take 5 mg every Thu, Thu, Thu; 2.5 mg all other days or as directedby [facility] metoprolol tartrate, short acting, (LOPRESSOR) 25 mg tablet Take 0.5 tablets by mouth twice daily. losartan (COZAAR) 50 mg tablet Take 1 tablet by mouth once daily. atorvastatin (LIPITOR) 80 mg tablet Take 1 tablet by mouth once daily. Takes 1/2 tab Thu, Thu &Thursday. 1 tab rest of days nitroglycerin sublingual (NITROQUICK) 0.4 mg SL tablet Dissolve 1 tablet under the tongue every 5 minutes as needed for Chest Pain. aspirin(ECOTRIN LOW STRENGTH 81 MG TAB) Take one(1) tablet daily. No current facility-administered medications for this visit. FAMILY HISTORY Problem Relation Age of Onset None Father age 89 other (abdominal aneurysm) Father Hypertension Mother cardiac arrest age 80 Hypertension Brother SOCIAL HISTORY: Social History Tobacco Use Smoking status: Former Smoker Packs/day: 0.25 Years: 15.00 Pack years: 3.75 Types: Cigarettes Quit date: 03/09/1999 Years since quittin.4 Smokeless tobacco: Never Used Vaping Use Vaping Use: Never used Substance Use Topics Alcohol use: No Drug use: No Osman denies regular aerobic exercise. He watches his diet for sodium, low fat and low cholesterol some of the time. End of Live Planning discussed including patients advanced directive wishes: Yes I am willing to follow Osman's advanced directives. Copy needed. PHQ-2 / Depression screen He in the past two weeks denies having felt down, depressed, hopeless or with little interest or pleasure in doing things. PHYSICAL EXAM BP 142/78 (BP Site: Left Arm, BP Position: Sitting, BP Cuff Size: Large Adult) Pulse 63 Temp 36C (96.8 F) (Temporal Artery) Resp 16 Ht 180.3 cm (5' 11) Wt 102.1 kg (225 lb) BMI 31.38 kg/m Alert and oriented X 3: YES Body mass index is 31.38 kg/m . Visual acuity: OD: 20/40 OS: 20/ 25 OU: 20/25 The Mini Cog(c): Word recall=3/3 + Clock drawing=1/2=4/5. (<3 is positive). General Appearance: Obese and ambulatory with cane.. Head: Normocephalic, no masses, lesions, tenderness or abnormalities. Eyes: Anicteric sclera. Pupils are equally round and reactive to light. Extraocular movements are intact. . Neck: Supple, no adenopathy; thyroid symmetric, normal size, no bruits. Back:no pain to palpation of vertebrae, no muscle tenderness, motor and sensory appear to be normal, negative SLR test, no evidence of scoliosis Lungs: Lungs clear to auscultation. No wheezing, rhonchi, rales.. Heart: RRR without murmur, gallop, or rubs. No ectopy. Abdomen: Abdomen soft, non-tender. Bowel sounds normal. No masses, organomegaly. Extremities: Negative findings: No cyanosis, clubbing or edema. Musculoskeletal: No joint swelling, deformity, or tenderness. Peripheral Pulses: Normal. Neurologic: CN intact. Motor exam no weakness. Gait shuffling, unsteady, difficulty getting up one step, cane dependent. Mild intention tremor of both legs. No cogwheeling. Sensation intact. DTR 0. . Component Latest Ref Rng & Units 07/19/2021 Protein, Total 6.3 - 8.0 g/dL 7.2 Albumin 3.9 - 4.9 g/dL 4.0 Calcium 8.5 - 10.2 mg/dL 9.0 Bilirubin, Total 0.2 - 1.3 mg/dL 0.8 Alkaline Phosphatase 38 - 113 U/L 87 AST 14 - 40 U/L 30 ALT 10 - 54 U/L 27 Glucose 74 - 99 mg/dL 121 (H) BUN 9 - 24 mg/dL 13 Creatinine 0.73 - 1.22 mg/dL 1.03 Sodium 136 - 144 mmol/L 142 Potassium 3.7 - 5.1 mmol/L 4.3 Chloride 97 - 105 mmol/L 106 (H) CO2 22 - 30 mmol/L 27 Anion Gap 9 - 18 mmol/L 9 eGFR >=60 mL/min/1.73m 76 ASSESSMENT/PLAN: 1. Routine general medical examination at a health care facility - ICD9: V70.0, ICD10: Z00.00 (primary diagnosis) - Counseled on healthy diet and regular exercise - Discussed need for and benefit of weight loss. BMI 31.38 kg/(m^2) - Fall precautions. 2. Cerebral ventriculomegaly - ICD9: 348.89, ICD10: G93.89 No recent evaluation. He preferred local evaluation and will be referred to Dr. Juan Pena. - CONSULT TO NEUROLOGY 3. Abnormality of gait - ICD9: 781.2, ICD10: R26.9 - CONSULT TO NEUROLOGY 4. Dizziness - ICD9: 780.4, ICD10: R42 - CONSULT TO NEUROLOGY 5. Essential hypertension - ICD9: 401.9, ICD10: I10 - suboptimal control - Continue current medication(s) - Encouraged dietary sodium restriction/DASH diet - Reviewed risks of HTN and principles of treatment - Goal of BP <130/80 6. Impaired fasting glucose - ICD9: 790.21, ICD10: R73.01 - Monitor. Stable. Jordy Saucedo MD [facility] Miscellaneous Notes* Telephone Encounter - Jeanette Ezra [facility] - 07/19/2021 2:57 PM EDT [facility] Anticoagulation Episode Summary Anticoagulation Care Providers Provider Role Specialty Phone number Jordy Saucedo MD Referring Internal Medicine [phone] Osman Jones is a 75 year old year old male patient being evaluated today for a Telemanagement visit. Patient is currently on the following anticoagulant(s) Warfarin. Labs PT INR (no units) Date Value 04/25/2021 2.6 03/28/2021 Test sent to [facility]. 03/28/2021 2.4 INR (no units) Date Value 07/19/2021 2.2 06/20/2021 2.9 05/23/2021 3.3 Hemoglobin (g/dL) Date Value 04/25/2021 16.7 Hematocrit (%) Date Value 04/25/2021 52.0 Platelet Count (k/uL) Date Value 04/25/2021 154 Creatinine (mg/dL) Date Value 04/25/2021 0.96 09/27/2020 0.98 12/26/2019 0.96 Bilirubin, Total (mg/dL) Date Value 12/26/2019 0.7 ALT (U/L) Date Value 12/26/2019 28 AST (U/L) Date Value 12/26/2019 33 CrCl cannot be calculated (Unknown ideal weight.). ALLERGIES Allergen Reactions Lisinopril Cough Indication for Warfarin: prison current use of anticoagulant Left ventricular thrombus following mi (hcc) Anticoagulation Episode Summary Current INR goal: 2.0-3.0 Assessment: INR result of 2.2 is therapeutic Plan: Called and spoke to patient/caregiver Advised patient to continue current weekly dose Next lab INR check to be scheduled by 08/23/2021 Patient verbalizes understanding of the plan. Patient denies need for refills. Jeanette Munguia RPh Clinical Pharmacist, Pharmacy Anticoagulation Clinic Pharmacy Anticoagulation Clinic Pager: [phone] . documented in this encounter[facility]04[facility] Miscellaneous Notes* Telephone Encounter - Lise Sherman RPh - 06/20/2021 2:29 PM EDT [facility] Osman Jones is a 75 year old year old male patient being evaluated today for anticoagulation Telemanagement visit. Patient is currently on the following anticoagulant: Warfarin Labs PT INR (no units) Date Value 04/25/2021 2.6 03/28/2021 Test sent to [facility]. 03/28/2021 2.4 INR (no units) Date Value 06/20/2021 2.9 05/23/2021 3.3 Indication for Warfarin: prison current use of anticoagulant Left ventricular thrombus following mi (hcc) Anticoagulation Episode Summary Current INR goal: 2.0-3.0 Assessment: INR result of 2.9 is therapeutic Plan: Called and spoke to patient/caregiver Advised patient to continue current weekly dose Next lab INR check scheduled on 07/18/2021 Patient verbalizes understanding of the plan. Lise Sherman RPh Clinical Pharmacist, Pharmacy Anticoagulation Clinic Pharmacy Anticoagulation Clinic Pager: [phone] * Telephone Encounter - Lise Sherman RPh - 06/20/2021 1:54 PM EDT Patient went to lab today for INR. Lab result is still pending. Lise Sherman RPh documented in this encounterNor[facility]02[facility] Evaluation note* Diagnosis Onset Date Resolution Status Ischemic cardiomyopathy rn chronic benedict Presence of implantable card ioverter-defibrillator (ICD) April, chronic Ischemic cardiomyopathy rn chronic benedict Presence of implantable card ioverter-defibrillator (ICD) April, chronic Back contusion acute Contusion of face acute Frequent falls acute Subtherapeutic anticoagulation acute Ischemic cardiomyopathy rn chronic benedict [facility] Work Phone: 1(676) 612-174102-01-2020 Evaluation note* Diagnosis Onset Date Resolution Status History of myocardial infarction acute Ischemic cardiomyopathy rn chronic benedict Presence of implantable card ioverter-defibrillator (ICD) April, chronic Degenerative joint disease of spine acute Frequent falls acute Inability to perform activities of daily living acute Intractable low back pain ac franche[place] Spinal stenosis acute [facility] Work Phone: 1(585) 953-243502-19-2018 History of Past illness Narrative* Problem Noted Date Resolved Date Left ventricular thrombus following ID 8 08/09/2021 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 07/18/2008 014 Overview: Colon 4-09: hyperplastic polyp Obesity, unspecified 05/12/2008 08/13/2021 documented as of this encounter (statuses as of 08/13/2021) [facility] of [facility] illness Narrative* Problem Noted Date Resolved Date Left ventricular thrombus following ID 8 08/09/2021 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 07/18/2008 014 Overview: Colon 4-09: hyperplastic polyp Obesity, unspecified 05/12/2008 08/13/2021 documented as of this encounter (statuses as of 08/30/2021) [facility] of [facility] illness Narrative* Problem Noted Date Resolved Date Left ventricular thrombus following ID 8 08/09/2021 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 07/18/2008 014 Overview: Colon 4-09: hyperplastic polyp Obesity, unspecified 05/12/2008 08/13/2021 documented as of this encounter (statuses as of 08/30/2021) [facility] Narrative* Problem Noted Date Resolved Date Left ventricular thrombus following ID 8 08/09/2021 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 07/18/2008 014 Overview: Colon 4-09: hyperplastic polyp Obesity, unspecified 05/12/2008 08/13/2021 documented as of this encounter (statuses as of 09/11/2021) [facility] Narrative* Problem Noted Date Resolved Date Left ventricular thrombus following ID 8 08/09/2021 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 07/18/2008 014 Overview: Colon 4-09: hyperplastic polyp Obesity, unspecified 05/12/2008 08/13/2021 documented as of this encounter (statuses as of 09/30/2021) [facility] Narrative* Problem Noted Date Resolved Date Left ventricular thrombus following ID 8 08/09/2021 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 07/18/2008 014 Overview: Colon 4-09: hyperplastic polyp Obesity, unspecified 05/12/2008 08/13/2021 documented as of this encounter (statuses as of 10/30/2021) [facility] Narrative* Problem Noted Date Resolved Date Left ventricular thrombus following ID 8 08/09/2021 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 07/18/2008 014 Overview: Colon 4-09: hyperplastic polyp Obesity, unspecified 05/12/2008 08/13/2021 documented as of this encounter (statuses as of 12/24/2021) [facility] Narrative* Problem Noted Date Resolved Date Left ventricular thrombus following ID 8 08/09/2021 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 07/18/2008 014 Overview: Colon 4-09: hyperplastic polyp Obesity, unspecified 05/12/2008 08/13/2021 documented as of this encounter (statuses as of 12/25/2021) [facility] Narrative* Problem Noted Date Resolved Date Left ventricular thrombus following ID 8 08/09/2021 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 07/18/2008 014 Overview: Colon 4-09: hyperplastic polyp Obesity, unspecified 05/12/2008 08/13/2021 documented as of this encounter (statuses as of 12/27/2021) [facility] Narrative* Problem Noted Date Resolved Date Left ventricular thrombus following ID 8 08/09/2021 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 07/18/2008 014 Overview: Colon 4-09: hyperplastic polyp Obesity, unspecified 05/12/2008 08/13/2021 documented as of this encounter (statuses as of 02/26/2022) [facility] Narrative* Problem Noted Date Resolved Date Left ventricular thrombus following ID 8 08/09/2021 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 07/18/2008 014 Overview: Colon 4-09: hyperplastic polyp Obesity, unspecified 05/12/2008 08/13/2021 documented as of this encounter (statuses as of 02/28/2022) [facility] Narrative* Problem Noted Date Resolved Date Left ventricular thrombus following ID 8 08/09/2021 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 07/18/2008 014 Overview: Colon 4-09: hyperplastic polyp Obesity, unspecified 05/12/2008 08/13/2021 documented as of this encounter (statuses as of 03/10/2022) [facility] Narrative* Problem Noted Date Resolved Date Left ventricular thrombus following ID 8 08/09/2021 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 07/18/2008 014 Overview: Colon 4-09: hyperplastic polyp Obesity, unspecified 05/12/2008 08/13/2021 documented as of this encounter (statuses as of 03/18/2022) [facility] Narrative* Problem Noted Date Resolved Date Left ventricular thrombus following ID 8 08/09/2021 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 07/18/2008 014 Overview: Colon 4-09: hyperplastic polyp Obesity, unspecified 05/12/2008 08/13/2021 documented as of this encounter (statuses as of 04/11/2022) [facility] Narrative* Problem Noted Date Resolved Date Left ventricular thrombus following ID 8 08/09/2021 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 07/18/2008 014 Overview: Colon 4-09: hyperplastic polyp Obesity, unspecified 05/12/2008 08/13/2021 documented as of this encounter (statuses as of 04/15/2022) [facility] Narrative* Problem Noted Date Resolved Date Left ventricular thrombus following ID 8 08/09/2021 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 07/18/2008 014 Overview: Colon 4-09: hyperplastic polyp Obesity, unspecified 05/12/2008 08/13/2021 documented as of this encounter (statuses as of 05/02/2022) [facility]* Problem Noted Date Resolved Date Left ventricular thrombus following ID 8 08/09/2021 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 07/18/2008 014 Overview: Colon 4-09: hyperplastic polyp Obesity, unspecified 05/12/2008 08/13/2021 documented as of this encounter (statuses as of 05/08/2022) [facility]* Problem Noted Date Resolved Date Left ventricular thrombus following ID 8 08/09/2021 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 07/18/2008 014 Overview: Colon 4-09: hyperplastic polyp Obesity, unspecified 05/12/2008 08/13/2021 documented as of this encounter (statuses as of 05/09/2022) [facility]* Problem Noted Date Resolved Date Left ventricular thrombus following ID 8 08/09/2021 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 07/18/2008 014 Overview: Colon 4-09: hyperplastic polyp Obesity, unspecified 05/12/2008 08/13/2021 documented as of this encounter (statuses as of 06/13/2022) [facility]* Problem Noted Date Resolved Date Left ventricular thrombus following ID 8 08/09/2021 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 07/18/2008 014 Overview: Colon 4-09: hyperplastic polyp Obesity, unspecified 05/12/2008 08/13/2021 documented as of this encounter (statuses as of 07/12/2022) [facility]* Problem Noted Date Resolved Date Left ventricular thrombus following ID 8 08/09/2021 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 07/18/2008 014 Overview: Colon 4-09: hyperplastic polyp Obesity, unspecified 05/12/2008 08/13/2021 documented as of this encounter (statuses as of 08/21/2022) [facility]* Problem Noted Date Diagnosed Date Resolved Date 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 8 Benign neoplasm of colon 07/18/200811/2013 Overview: Colon 4-09: hyperplastic polyp Obesity, unspecified 05/12/2008 022 documented as of this encounter (statuses as of 09/20/2022) [facility]* Problem Noted Date Diagnosed Date Resolved Date 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 8 Benign neoplasm of colon 07/18/200811/2013 Overview: Colon 4-09: hyperplastic polyp Obesity, unspecified 05/12/2008 022 documented as of this encounter (statuses as of 10/24/2022) [facility]* Problem Noted Date Diagnosed Date Resolved Date 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 8 Benign neoplasm of colon 07/18/200811/2013 Overview: Colon 4-09: hyperplastic polyp Obesity, unspecified 05/12/2008 022 documented as of this encounter (statuses as of 11/15/2022) [facility]* Problem Noted Date Diagnosed Date Resolved Date 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 8 Benign neoplasm of colon 07/18/200811/2013 Overview: Colon 4-09: hyperplastic polyp Obesity, unspecified 05/12/2008 022 documented as of this encounter (statuses as of 11/29/2022) [facility]* Problem Noted Date Diagnosed Date Resolved Date 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 8 Benign neoplasm of colon 07/18/200811/2013 Overview: Colon 4-09: hyperplastic polyp Obesity, unspecified 05/12/2008 022 documented as of this encounter (statuses as of 12/26/2022) [facility]* Problem Noted Date Diagnosed Date Resolved Date 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 8 Benign neoplasm of colon 07/18/200811/2013 Overview: Colon 4-09: hyperplastic polyp Obesity, unspecified 05/12/2008 022 documented as of this encounter (statuses as of 01/14/2023) [facility]* Problem Noted Date Diagnosed Date Resolved Date 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 8 Benign neoplasm of colon 07/18/200811/2013 Overview: Colon 4-09: hyperplastic polyp Obesity, unspecified 05/12/2008 022 documented as of this encounter (statuses as of 02/14/2023) [facility]* Problem Noted Date Diagnosed Date Resolved Date 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 8 Benign neoplasm of colon 07/18/200811/2013 Overview: Colon 4-09: hyperplastic polyp Obesity, unspecified 05/12/2008 022 documented as of this encounter (statuses as of 02/16/2023) [facility]* Problem Noted Date Diagnosed Date Resolved Date 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 8 Benign neoplasm of colon 07/18/200811/2013 Overview: Colon 4-09: hyperplastic polyp Obesity, unspecified 05/12/2008 022 documented as of this encounter (statuses as of 02/20/2023) [facility]* Problem Noted Date Diagnosed Date Resolved Date 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 8 Benign neoplasm of colon 07/18/200811/2013 Overview: Colon 4-09: hyperplastic polyp Obesity, unspecified 05/12/2008 022 documented as of this encounter (statuses as of 04/22/2023) [facility]* Problem Noted Date Diagnosed Date Resolved Date 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 8 Benign neoplasm of colon 07/18/200811/2013 Overview: Colon 4-09: hyperplastic polyp Obesity, unspecified 05/12/2008 022 documented as of this encounter (statuses as of 05/13/2023) [facility]* Problem Noted Date Diagnosed Date Resolved Date 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 8 Benign neoplasm of colon 07/18/200811/2013 Overview: Colon 4-09: hyperplastic polyp Obesity, unspecified 05/12/2008 022 documented as of this encounter (statuses as of 05/13/2023) [facility]* Problem Noted Date Diagnosed Date Resolved Date 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 8 Benign neoplasm of colon 07/18/200811/2013 Overview: Colon 4-09: hyperplastic polyp Obesity, unspecified 05/12/2008 022 documented as of this encounter (statuses as of 05/21/2023) [facility] Narrative* Problem Noted Date Resolved Date 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 07/18/2008 014 Overview: Colon 4-09: hyperplastic polyp documented as of this encounter (statuses as of 06/20/2021) [facility]ative* Problem Noted Date Resolved Date 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 07/18/2008 014 Overview: Colon 4-09: hyperplastic polyp documented as of this encounter (statuses as of 07/19/2021) [facility] 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 Long-term (current) use of anticoagulants Left ventricular thrombus following ID (HCC) Other certain sequelae of myocardial infarction, not elsewhere classified [facility] 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 Long-term (current) use of anticoagulants Left ventricular thrombus following ID (HCC) Other certain sequelae of myocardial infarction, not elsewhere classified [facility] Routine general medical examination at a health care facility- Primary Cerebral ventriculomegaly Other conditions of brain Abnormality of gait Dizziness Dizziness and giddiness Essential hypertension Unspecified essential hypertension Impaired fasting glucose [facility] Diagnosis prison current use of anticoagulant- Primary Long-term (current) use of anticoagulants [facility] 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 Long-term (current) use of anticoagulants [facility] Diagnosis Essential hypertension- Primary Unspecified essential hypertension Dizziness Dizziness and giddiness Abnormality of gait Encounter for immunization Need for other specified prophylactic vaccination against single bacterial disease [facility] 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 Long-term (current) use of anticoagulants [facility] Diagnosis prison current use of anticoagulant- Primary Long-term (current) use of anticoagulants [facility] Diagnosis PURE HYPERCHOLESTEROLEM Pure hypercholesterolemia [facility] Diagnosis Essential hypertension Unspecified essential hypertension [facility] 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 Long-term (current) use of anticoagulants [facility] 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 Long-term (current) use of anticoagulants [facility] 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 Long-term (current) use of anticoagulants [facility] Diagnosis Abnormality of gait- Primary Need for influenza vaccination Need for prophylactic vaccination and inoculation against influenza Need for COVID-19 vaccine Essential hypertension Unspecified essential hypertension Atherosclerosis of [place] coronary artery of [place] heart without angina pectoris Ischemic cardiomyopathy Other specified forms of chronic ischemic heart disease Dizziness Dizziness and giddiness Impaired fasting glucose PURE HYPERCHOLESTEROLEM Pure hypercholesterolemia [facility] Diagnosis Onset Date Resolution Status Degenerative joint disease of spine acute Frequent falls acute Inability to perform activities of daily living acute Intractable low back pain ac [place] Spinal stenosis acute [facility] Work Phone: Evaluation note* 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 Long-term (current) use of anticoagulants [facility] 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 Long-term (current) use of anticoagulants [facility] Diagnosis prison current use of anticoagulant- Primary Long-term (current) use of anticoagulants [facility] Diagnosis Essential hypertension Unspecified essential hypertension Ischemic cardiomyopathy Other specified forms of chronic ischemic heart disease PURE HYPERCHOLESTEROLEM Pure hypercholesterolemia [facility] Diagnosis Atherosclerosis of [place] coronary artery of [place] heart without angina pectoris- Primary Nocturia Parkinsonism, unspecified Parkinsonism type (HCC) Essential hypertension Unspecified essential hypertension Abnormality of gait LV (left ventricular) mural thrombus following ID (HCC) Other certain sequelae of myocardial infarction, not elsewhere classified Cerebral ventriculomegaly Other conditions of brain Need for COVID-19 vaccine 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 Long-term (current) use of anticoagulants Ischemic cardiomyopathy Other specified forms of chronic ischemic heart disease [facility] Diagnosis Essential hypertension- Primary Unspecified essential hypertension Impaired fasting glucose Atherosclerosis of [place] coronary artery of [place] heart without angina pectoris Lower urinary tract symptoms (LUTS) Other symptoms involving urinary system Nocturia PURE HYPERCHOLESTEROLEM Pure hypercholesterolemia [facility]* Diagnosis Parkinsonism, unspecified Parkinsonism type (HCC)- Primary Multifactorial gait disorder Abnormality of gait Cerebral ventriculomegaly Other conditions of brain Dysarthria [facility] Diagnosis Rash and nonspecific skin eruption- Primary Rash and other nonspecific skin eruption documented in this encounter [facility] note* Diagnosis 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 Other certain sequelae of myocardial infarction, not elsewhere classified 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 Long-term (current) use of anticoagulants Ischemic cardiomyopathy Other specified forms of chronic ischemic heart disease documented in this encounter [facility] note* Diagnosis LV (left ventricular) mural thrombus following ID (HCC)- Primary Other certain sequelae of myocardial infarction, not elsewhere classified 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 therapy Long-term (current) use of anticoagulants Ischemic cardiomyopathy Other specified forms of chronic ischemic heart disease documented in this encounter [facility] noteNo assessment information availableWWayne [facility] Work Phone: Evaluation note* Diagnosis Essential hypertension Unspecified essential hypertension Ischemic cardiomyopathy Other specified forms of chronic ischemic heart disease PURE HYPERCHOLESTEROLEM Pure hypercholesterolemia documented in this encounter [facility] note* Diagnosis Medicare annual wellness visit, subsequent- Primary Routine general medical examination at a health care facility PURE HYPERCHOLESTEROLEM Pure hypercholesterolemia Essential hypertension Unspecified essential hypertension Encounter for screening examination for other mental health and behavioral disorders Screening for depression Parkinsonism, unspecified Parkinsonism type (HCC) Atherosclerosis of [place] coronary artery of [place] heart without angina pectoris Impaired fasting glucose LV (left ventricular) mural thrombus following ID (HCC) Other certain sequelae of myocardial infarction, not elsewhere classified Ischemic cardiomyopathy Other specified forms of chronic ischemic heart disease Presence of implantable cardioverter-defibrillator (ICD) Abnormality of gait Vitamin D deficiency Unspecified vitamin D deficiency Restless legs Restless legs syndrome (RLS) documented in this encounter [facility] for referral (narrative)No reason for referral information availableWWayne HealthCare [facility] Work Phone: Summary Purpose Family History No Family History Records Found Relationship Condition Age at Onset Recorded Date/T alva father Ruptured abdominal aortic aneurysm (AAA) 89 mother Myocardial infarction Unknown Sudden cardiac 80 brother Hypertension Unknown Advance Directives No Advanced Directives Records Found Advance Directive Response Recorded Date/ Time Name of Medical Power of Certified Pedorthotist Aure January 21, 2022 9:03am Advance Directives Yes April 14, 2019 11:30am Living Will Yes January 21, 2 022 9:03am Power of Certified Pedorthotist Yes January 21, 2022 9:03am Advance Directive Response Recorded Date/ Time Name of Medical Power of Certified Pedorthotist Aure medina January 21, 2022 1:03pm Advance Directives Yes April 14, 2019 11:30am Living Will Yes January 21, 2 022 1:03pm Power of Certified Pedorthotist Yes January 21, 2022 1:03pm Advance Directive Response Recorded Date/ Time Name of Medical Power of Certified Pedorthotist February 20, 2023 2:16pm Advance Directives Yes April 14, 2019 11:30am Living Will Yes February 20, 2 023 2:16pm Power of Certified Pedorthotist Yes February 20, 2023 2:16pm Advance Directive Response Recorded Date/ Time Advance Directives Yes April 14, 2019 11:30am Living Will Yes February 20, 2 023 9:00am Power of Certified Pedorthotist No February 20, 2023 9:00am Advance Directive Response Recorded Date/ Time Advance Directives Yes April 14, 2019 12:30pm Reason for Referral Specialty Diagnoses / Procedures Referred By Contac t Referred To Contact Neurology Diagnoses Cerebral ventriculomegaly Abnormality of gait Dizziness Procedures CONSULT TO NEUROLOGY Jordy Saucedo MD [address] [place] [address] Referral ID Status Reason Start Date Expiration Date Visits Requested Visits Authorized [id number] Ref Not Required PCP Requested Referral 08/13/2021 08/13/2022 1 1 Specialty Diagnoses / Procedures Referred By Contac t Referred To Contact Diagnoses Pure hypercholesterolemia 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, 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, [employer]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 [address] [place] [address] Referral ID Status Reason Start Date Expiration Date V isits Requested Visits Authorized [id number] Pending Review 1 1 Specialty Diagnoses / Procedures Referred By Contac t Referred To Contact Neurology Diagnoses Parkinsonism, unspecified Parkinsonism type (HCC) Abnormality of gait Cerebral ventriculomegaly Procedures CONSULT TO NEUROLOGY OFFICE/OUTPATIENT [facility] 60 MINUTES Jordy Saucedo MD [address] [place] [address] Referral ID Status Reason Start Date Expiration Date Visits Requested Visits Authorized [id number] Authorized PCP Requested Referral 07/31/2023 07/30/2024 1 1 Specialty Diagnoses / Procedures Referred By Contac t Referred To Contact [facility] Diagnoses Parkinsonism, unspecified Parkinsonism type (HCC) Procedures CONSULT TO SPEECH THERAPY OFFICE/OUTPATIENT [facility]DM 60 MINUTES Sincere Castano MD [address] [facility] [address] [facility] [address] [address] Referral ID Status Reason Start Date Expiration Date Visits Requested Visits Authorized [id number] Pending Review Auto-Generat ed Referral 09/25/2023 09/24/2024 1 1 Specialty Diagnoses / Procedures Referred By Contac t Referred To Contact [facility] Diagnoses Parkinsonism, unspecified Parkinsonism type (HCC) Procedures CONSULT TO PHYSICAL THERAPY PHYSICAL THERAPY EVALUATION [facility] 45 MINS Sincere Castano MD [address] [facility] [id number] [facility] [address] [address] Referral ID Status Reason Start Date Expiration Date Visits Requested Visits Authorized [id number] Pending Review Auto-Generat ed Referral 09/25/2023 09/24/2024 1 1 Chief Complaint and Reason for Visit Chief Complaint 3 mos remote ICD f/u REMOTE CHECK GENERALIZED WEAKNESS weakness Reason for Visit Ischemic cardiomyopa thy Presence of implantable cardioverter-defibrillator (ICD) Ischemic cardiomyopathy Presence of implantable cardioverter-defibrillator (ICD) Back contusion Contusion of face Frequent falls Subtherapeutic anticoagulation Ischemic cardiomyopathy Chief Complaint 3 mos remote ICD f/u REMOTE CHECK GENERALIZED WEAKNESS weakness GENERALIZED WEAKNESS GENERALIZED WEAKNESS Reason for Visit Ischemic cardiomyopa thy Presence of implantable cardioverter-defibrillator (ICD) Ischemic cardiomyopathy Presence of implantable cardioverter-defibrillator (ICD) Back contusion Contusion of face Frequent falls Subtherapeutic anticoagulation Ischemic cardiomyopathy Chief Complaint INTRACTABLE BACK FELICIA N, DEBILITY INTRACTABLE BACK PAIN, DEBILITY INTRACTABLE BACK PAIN, DEBILITY INTRACTABLE BACK PAIN, DEBILITY INTRACTABLE BACK PAIN, DEBILITY INTRACTABLE BACK PAIN, DEBILITY INTRACTABLE BACK PAIN, DEBILITY INTRACTABLE BACK PAIN, DEBILITY INTRACTABLE BACK PAIN, DEBILITY INTRACTABLE BACK PAIN, DEBILITY Reason for Visit Degenerative joint d isease of spine Frequent falls Inability to perform activities of daily living Intractable low back pain Spinal stenosis Chief Complaint 3 mos remote ICD f?u INTRACTABLE BACK PAIN, DEBILITY Reason for Visit History of myocardia l infarction Ischemic cardiomyopathy Presence of implantable cardioverter-defibrillator (ICD) Degenerative joint disease of spine Frequent falls Inability to perform activities of daily living Intractable low back pain Spinal stenosis Chief Complaint Admit Date HOME DRAW LAB WORK February 01, 2024 9:35am Pacer Check Remote February 05, 2024 12:11am HOME DRAW LAB WORK February 29, 2024 8:52am LABWORK March 14, 2024 10 :01am LABWORK April 04, 2024 1 0:00am LABWORK April 25, 2024 10:05am Pacer Check Remote May 06, 2024 12:11am LABWORK May 23, 2024 9:2 6am Chief Complaint Admit Date HOME DRAW LAB WORK February 29, 2024 8:52am LABWORK March 14, 2024 10 :01am LABWORK April 04, 2024 1 0:00am LABWORK April 25, 2024 10:05am Pacer Check Remote May 06, 2024 12:11am LABWORK May 23, 2024 9:2 6am LABWORK June 20, 2024 9:5 0am Chief Complaint Admit Date LABWORK April 25, 2024 10:05am Pacer Check Remote May 06, 2024 12:11am LABWORK May 23, 2024 9:2 6am LABWORK June 20, 2024 9:5 0am LABWORK July 04, 2024 10: 01am LABWORK August 02, 2024 9:02a m Chief Complaint Admit Date Pacer Check Remote May 06, 2024 12:11am LABWORK May 23, 2024 9:2 6am LABWORK June 20, 2024 9:5 0am LABWORK July 04, 2024 10: 01am LABWORK August 02, 2024 9:02a m Pacer Check Remote August 05, 2024 12:11 am Chief Complaint Admit Date LABWORK May 23, 2024 9:2 6am LABWORK June 20, 2024 9:5 0am LABWORK July 04, 2024 10: 01am LABWORK August 02, 2024 9:02a m Pacer Check Remote August 05, 2024 12:11 am HOME LAB WORK August 30, 2024 8:26 am Chief Complaint Admit Date LABWORK June 20, 2024 9:5 0am LABWORK July 04, 2024 10: 01am LABWORK August 02, 2024 9:02a m Pacer Check Remote August 05, 2024 12:11 am HOME LAB WORK August 30, 2024 8:26 am HOME DRAW LAB WORK September 27, 2024 8:37 am Medications Administered Section Administered Medications Medication Order MAR Action Action Date Dose Rate Site tuberculin skin test, unspecified formulation Given 02/02/2022 0.1 ml tuberculin skin test, unspecified formulation Given 01/23/2022 0.1 ml Additional Source Comments (unrecognized sect ion and content) No Status Records FoundNo Status Records FoundNo Status Records FoundNo Status Records FoundNo Status Records Found INFORMATION SOURCE (unrecogn ized section and content) DATE CREATED AUTHOR 09/01/2017 [facility] ([place]) DATE CREATED AUTHOR AUTHOR'S ORGANIZ ATION 04/28/2018 [facility] DATE CREATED AUTHOR AUTHOR'S ORGANIZ ATION 05/04/2018 [facility] DATE CREATED AUTHOR AUTHOR'S ORGANIZ ATION 09/29/2024 [facility] DATE CREATED AUTHOR AUTHOR'S ORGANIZ ATION 10/04/2024 [facility] Source Comments (unrecognize d section and content) In the event this informatio n is protected by the Federal Confidentiality of Alcohol and Drug Abuse Patient Records regulations: The Federal rules restrict any use of the information to criminally investigate or prosecute any alcohol or drug abuse patient.[facility] the event this information is protected by the Federal Confidentiality of Alcohol and Drug Abuse Patient Records regulations: The Federal rules restrict any use of the information to criminally investigate or prosecute any alcohol or drug abuse patient.[facility] HospitalIn the event this information is protected by the Federal Confidentiality of Alcohol and Drug Abuse Patient Records regulations: The Federal rules restrict any use of the information to criminally investigate or prosecute any alcohol or drug abuse patient.[facility]In the event this information is protected by the Federal Confidentiality of Alcohol and Drug Abuse Patient Records regulations: The Federal rules restrict any use of the information to criminally investigate or prosecute any alcohol or drug abuse patient.[facility] HospitalIn the event this information is protected by the Federal Confidentiality of Alcohol and Drug Abuse Patient Records regulations: The Federal rules restrict any use of the information to criminally investigate or prosecute any alcohol or drug abuse patient.[facility] HospitalIn the event this information is protected by the Federal Confidentiality of Alcohol and Drug Abuse Patient Records regulations: The Federal rules restrict any use of the information to criminally investigate or prosecute any alcohol or drug abuse patient.[facility]In the event this information is protected by the Federal Confidentiality of Alcohol and Drug Abuse Patient Records regulations: The Federal rules restrict any use of the information to criminally investigate or prosecute any alcohol or drug abuse patient.[facility] HospitalIn the event this information is protected by the Federal Confidentiality of Alcohol and Drug Abuse Patient Records regulations: The Federal rules restrict any use of the information to criminally investigate or prosecute any alcohol or drug abuse patient.[facility] HospitalIn the event this information is protected by the Federal Confidentiality of Alcohol and Drug Abuse Patient Records regulations: The Federal rules restrict any use of the information to criminally investigate or prosecute any alcohol or drug abuse patient.[facility] HospitalIn the event this information is protected by the Federal Confidentiality of Alcohol and Drug Abuse Patient Records regulations: The Federal rules restrict any use of the information to criminally investigate or prosecute any alcohol or drug abuse patient.[facility] HospitalIn the event this information is protected by the Federal Confidentiality of Alcohol and Drug Abuse Patient Records regulations: The Federal rules restrict any use of the information to criminally investigate or prosecute any alcohol or drug abuse patient.[facility] HospitalIn the event this information is protected by the Federal Confidentiality of Alcohol and Drug Abuse Patient Records regulations: The Federal rules restrict any use of the information to criminally investigate or prosecute any alcohol or drug abuse patient.[facility] HospitalIn the event this information is protected by the Federal Confidentiality of Alcohol and Drug Abuse Patient Records regulations: The Federal rules restrict any use of the information to criminally investigate or prosecute any alcohol or drug abuse patient.[facility] HospitalIn the event this information is protected by the Federal Confidentiality of Alcohol and Drug Abuse Patient Records regulations: The Federal rules restrict any use of the information to criminally investigate or prosecute any alcohol or drug abuse patient.[facility] HospitalIn the event this information is protected by the Federal Confidentiality of Alcohol and Drug Abuse Patient Records regulations: The Federal rules restrict any use of the information to criminally investigate or prosecute any alcohol or drug abuse patient.[facility] HospitalIn the event this information is protected by the Federal Confidentiality of Alcohol and Drug Abuse Patient Records regulations: The Federal rules restrict any use of the information to criminally investigate or prosecute any alcohol or drug abuse patient.[facility] HospitalIn the event this information is protected by the Federal Confidentiality of Alcohol and Drug Abuse Patient Records regulations: The Federal rules restrict any use of the information to criminally investigate or prosecute any alcohol or drug abuse patient.[facility] HospitalIn the event this information is protected by the Federal Confidentiality of Alcohol and Drug Abuse Patient Records regulations: The Federal rules restrict any use of the information to criminally investigate or prosecute any alcohol or drug abuse patient.[facility] HospitalIn the event this information is protected by the Federal Confidentiality of Alcohol and Drug Abuse Patient Records regulations: The Federal rules restrict any use of the information to criminally investigate or prosecute any alcohol or drug abuse patient.[facility] HospitalIn the event this information is protected by the Federal Confidentiality of Alcohol and Drug Abuse Patient Records regulations: The Federal rules restrict any use of the information to criminally investigate or prosecute any alcohol or drug abuse patient.[facility] HospitalIn the event this information is protected by the Federal Confidentiality of Alcohol and Drug Abuse Patient Records regulations: The Federal rules restrict any use of the information to criminally investigate or prosecute any alcohol or drug abuse patient.[facility] HospitalIn the event this information is protected by the Federal Confidentiality of Alcohol and Drug Abuse Patient Records regulations: The Federal rules restrict any use of the information to criminally investigate or prosecute any alcohol or drug abuse patient.[facility] HospitalIn the event this information is protected by the Federal Confidentiality of Alcohol and Drug Abuse Patient Records regulations: The Federal rules restrict any use of the information to criminally investigate or prosecute any alcohol or drug abuse patient.[facility] HospitalIn the event this information is protected by the Federal Confidentiality of Alcohol and Drug Abuse Patient Records regulations: The Federal rules restrict any use of the information to criminally investigate or prosecute any alcohol or drug abuse patient.[facility] HospitalIn the event this information is protected by the Federal Confidentiality of Alcohol and Drug Abuse Patient Records regulations: The Federal rules restrict any use of the information to criminally investigate or prosecute any alcohol or drug abuse patient.[facility] HospitalIn the event this information is protected by the Federal Confidentiality of Alcohol and Drug Abuse Patient Records regulations: The Federal rules restrict any use of the information to criminally investigate or prosecute any alcohol or drug abuse patient.[facility] HospitalIn the event this information is protected by the Federal Confidentiality of Alcohol and Drug Abuse Patient Records regulations: The Federal rules restrict any use of the information to criminally investigate or prosecute any alcohol or drug abuse patient.[facility] HospitalIn the event this information is protected by the Federal Confidentiality of Alcohol and Drug Abuse Patient Records regulations: The Federal rules restrict any use of the information to criminally investigate or prosecute any alcohol or drug abuse patient.[facility] HospitalIn the event this information is protected by the Federal Confidentiality of Alcohol and Drug Abuse Patient Records regulations: The Federal rules restrict any use of the information to criminally investigate or prosecute any alcohol or drug abuse patient.[facility] HospitalIn the event this information is protected by the Federal Confidentiality of Alcohol and Drug Abuse Patient Records regulations: The Federal rules restrict any use of the information to criminally investigate or prosecute any alcohol or drug abuse patient.[facility] HospitalIn the event this information is protected by the Federal Confidentiality of Alcohol and Drug Abuse Patient Records regulations: The Federal rules restrict any use of the information to criminally investigate or prosecute any alcohol or drug abuse patient.[facility] HospitalIn the event this information is protected by the Federal Confidentiality of Alcohol and Drug Abuse Patient Records regulations: The Federal rules restrict any use of the information to criminally investigate or prosecute any alcohol or drug abuse patient.[facility] HospitalIn the event this information is protected by the Federal Confidentiality of Alcohol and Drug Abuse Patient Records regulations: The Federal rules restrict any use of the information to criminally investigate or prosecute any alcohol or drug abuse patient.[facility] HospitalIn the event this information is protected by the Federal Confidentiality of Alcohol and Drug Abuse Patient Records regulations: The Federal rules restrict any use of the information to criminally investigate or prosecute any alcohol or drug abuse patient.[facility] HospitalIn the event this information is protected by the Federal Confidentiality of Alcohol and Drug Abuse Patient Records regulations: The Federal rules restrict any use of the information to criminally investigate or prosecute any alcohol or drug abuse patient.[facility] HospitalIn the event this information is protected by the Federal Confidentiality of Alcohol and Drug Abuse Patient Records regulations: The Federal rules restrict any use of the information to criminally investigate or prosecute any alcohol or drug abuse patient.[facility] HospitalIn the event this information is protected by the Federal Confidentiality of Alcohol and Drug Abuse Patient Records regulations: The Federal rules restrict any use of the information to criminally investigate or prosecute any alcohol or drug abuse patient.[facility] HospitalIn the event this information is protected by the Federal Confidentiality of Alcohol and Drug Abuse Patient Records regulations: The Federal rules restrict any use of the information to criminally investigate or prosecute any alcohol or drug abuse patient.[facility] HospitalIn the event this information is protected by the Federal Confidentiality of Alcohol and Drug Abuse Patient Records regulations: The Federal rules restrict any use of the information to criminally investigate or prosecute any alcohol or drug abuse patient.[facility] HospitalIn the event this information is protected by the Federal Confidentiality of Alcohol and Drug Abuse Patient Records regulations: The Federal rules restrict any use of the information to criminally investigate or prosecute any alcohol or drug abuse patient.[facility] HospitalIn the event this information is protected by the Federal Confidentiality of Alcohol and Drug Abuse Patient Records regulations: The Federal rules restrict any use of the information to criminally investigate or prosecute any alcohol or drug abuse patient.[facility] HospitalIn the event this information is protected by the Federal Confidentiality of Alcohol and Drug Abuse Patient Records regulations: The Federal rules restrict any use of the information to criminally investigate or prosecute any alcohol or drug abuse patient.[facility] HospitalIn the event this information is protected by the Federal Confidentiality of Alcohol and Drug Abuse Patient Records regulations: The Federal rules restrict any use of the information to criminally investigate or prosecute any alcohol or drug abuse patient.[facility] HospitalIn the event this information is protected by the Federal Confidentiality of Alcohol and Drug Abuse Patient Records regulations: The Federal rules restrict any use of the information to criminally investigate or prosecute any alcohol or drug abuse patient.[facility] HospitalIn the event this information is protected by the Federal Confidentiality of Alcohol and Drug Abuse Patient Records regulations: The Federal rules restrict any use of the information to criminally investigate or prosecute any alcohol or drug abuse patient.[facility] HospitalIn the event this information is protected by the Federal Confidentiality of Alcohol and Drug Abuse Patient Records regulations: The Federal rules restrict any use of the information to criminally investigate or prosecute any alcohol or drug abuse patient.[facility] HospitalIn the event this information is protected by the Federal Confidentiality of Alcohol and Drug Abuse Patient Records regulations: The Federal rules restrict any use of the information to criminally investigate or prosecute any alcohol or drug abuse patient.[facility] HospitalIn the event this information is protected by the Federal Confidentiality of Alcohol and Drug Abuse Patient Records regulations: The Federal rules restrict any use of the information to criminally investigate or prosecute any alcohol or drug abuse patient.[facility] HospitalIn the event this information is protected by the Federal Confidentiality of Alcohol and Drug Abuse Patient Records regulations: The Federal rules restrict any use of the information to criminally investigate or prosecute any alcohol or drug abuse patient.[facility] HospitalIn the event this information is protected by the Federal Confidentiality of Alcohol and Drug Abuse Patient Records regulations: The Federal rules restrict any use of the information to criminally investigate or prosecute any alcohol or drug abuse patient.[facility] HospitalIn the event this information is protected by the Federal Confidentiality of Alcohol and Drug Abuse Patient Records regulations: The Federal rules restrict any use of the information to criminally investigate or prosecute any alcohol or drug abuse patient.[facility] HospitalIn the event this information is protected by the Federal Confidentiality of Alcohol and Drug Abuse Patient Records regulations: The Federal rules restrict any use of the information to criminally investigate or prosecute any alcohol or drug abuse patient.[facility] HospitalIn the event this information is protected by the Federal Confidentiality of Alcohol and Drug Abuse Patient Records regulations: The Federal rules restrict any use of the information to criminally investigate or prosecute any alcohol or drug abuse patient.[facility] HospitalIn the event this information is protected by the Federal Confidentiality of Alcohol and Drug Abuse Patient Records regulations: The Federal rules restrict any use of the information to criminally investigate or prosecute any alcohol or drug abuse patient.[facility] HospitalIn the event this information is protected by the Federal Confidentiality of Alcohol and Drug Abuse Patient Records regulations: The Federal rules restrict any use of the information to criminally investigate or prosecute any alcohol or drug abuse patient.[facility] HospitalIn the event this information is protected by the Federal Confidentiality of Alcohol and Drug Abuse Patient Records regulations: The Federal rules restrict any use of the information to criminally investigate or prosecute any alcohol or drug abuse patient.[facility] HospitalIn the event this information is protected by the Federal Confidentiality of Alcohol and Drug Abuse Patient Records regulations: The Federal rules restrict any use of the information to criminally investigate or prosecute any alcohol or drug abuse patient.[facility] HospitalIn the event this information is protected by the Federal Confidentiality of Alcohol and Drug Abuse Patient Records regulations: The Federal rules restrict any use of the information to criminally investigate or prosecute any alcohol or drug abuse patient.[facility] HospitalIn the event this information is protected by the Federal Confidentiality of Alcohol and Drug Abuse Patient Records regulations: The Federal rules restrict any use of the information to criminally investigate or prosecute any alcohol or drug abuse patient.[facility] HospitalIn the event this information is protected by the Federal Confidentiality of Alcohol and Drug Abuse Patient Records regulations: The Federal rules restrict any use of the information to criminally investigate or prosecute any alcohol or drug abuse patient.[facility] HospitalIn the event this information is protected by the Federal Confidentiality of Alcohol and Drug Abuse Patient Records regulations: The Federal rules restrict any use of the information to criminally investigate or prosecute any alcohol or drug abuse patient.[facility] HospitalIn the event this information is protected by the Federal Confidentiality of Alcohol and Drug Abuse Patient Records regulations: The Federal rules restrict any use of the information to criminally investigate or prosecute any alcohol or drug abuse patient.[facility] HospitalIn the event this information is protected by the Federal Confidentiality of Alcohol and Drug Abuse Patient Records regulations: The Federal rules restrict any use of the information to criminally investigate or prosecute any alcohol or drug abuse patient.[facility] HospitalIn the event this information is protected by the Federal Confidentiality of Alcohol and Drug Abuse Patient Records regulations: The Federal rules restrict any use of the information to criminally investigate or prosecute any alcohol or drug abuse patient.[facility] HospitalIn the event this information is protected by the Federal Confidentiality of Alcohol and Drug Abuse Patient Records regulations: The Federal rules restrict any use of the information to criminally investigate or prosecute any alcohol or drug abuse patient.[facility] HospitalIn the event this information is protected by the Federal Confidentiality of Alcohol and Drug Abuse Patient Records regulations: The Federal rules restrict any use of the information to criminally investigate or prosecute any alcohol or drug abuse patient.[facility] HospitalIn the event this information is protected by the Federal Confidentiality of Alcohol and Drug Abuse Patient Records regulations: The Federal rules restrict any use of the information to criminally investigate or prosecute any alcohol or drug abuse patient.[facility] HospitalIn the event this information is protected by the Federal Confidentiality of Alcohol and Drug Abuse Patient Records regulations: The Federal rules restrict any use of the information to criminally investigate or prosecute any alcohol or drug abuse patient.[facility] HospitalIn the event this information is protected by the Federal Confidentiality of Alcohol and Drug Abuse Patient Records regulations: The Federal rules restrict any use of the information to criminally investigate or prosecute any alcohol or drug abuse patient.[facility] HospitalIn the event this information is protected by the Federal Confidentiality of Alcohol and Drug Abuse Patient Records regulations: The Federal rules restrict any use of the information to criminally investigate or prosecute any alcohol or drug abuse patient.[facility] HospitalIn the event this information is protected by the Federal Confidentiality of Alcohol and Drug Abuse Patient Records regulations: The Federal rules restrict any use of the information to criminally investigate or prosecute any alcohol or drug abuse patient.[facility] HospitalIn the event this information is protected by the Federal Confidentiality of Alcohol and Drug Abuse Patient Records regulations: The Federal rules restrict any use of the information to criminally investigate or prosecute any alcohol or drug abuse patient.[facility] HospitalIn the event this information is protected by the Federal Confidentiality of Alcohol and Drug Abuse Patient Records regulations: The Federal rules restrict any use of the information to criminally investigate or prosecute any alcohol or drug abuse patient.[facility] HospitalIn the event this information is protected by the Federal Confidentiality of Alcohol and Drug Abuse Patient Records regulations: The Federal rules restrict any use of the information to criminally investigate or prosecute any alcohol or drug abuse patient.[facility] HospitalIn the event this information is protected by the Federal Confidentiality of Alcohol and Drug Abuse Patient Records regulations: The Federal rules restrict any use of the information to criminally investigate or prosecute any alcohol or drug abuse patient.[facility] HospitalIn the event this information is protected by the Federal Confidentiality of Alcohol and Drug Abuse Patient Records regulations: The Federal rules restrict any use of the information to criminally investigate or prosecute any alcohol or drug abuse patient.[facility] Reason for Visit (unrecogniz ed section and content) Reason Comments Anticoagulation Telephone Fu Reason Comments Anticoagulation Telephone Fu INR Lab Res ult Reason Comments Yearly Exam Specialty Diagnoses / Procedures Referred By Contac t Referred To Contact FAMILY MEDICINE Diagnoses Annual Procedures OFFICE/OUTPATIENT ESTABLISHED MOD [facility] 30-39 MIN Annual Jordy Saucedo MD [address] [place] [address] [facility] [address] [place] [address] Referral ID Status Reason Start Date Expiration Date V isits Requested Visits Authorized [id number] Closed OON/Self Pay Override 03/09/2021 03/08/2022 1 1 Reason Comments Opened In Error Reason Comments Anticoagulation Telephone Fu Lab INR Reason Onset Date Comments Anticoagulation Telephone Fu 09/30/2021 Lab INR Result Reason Comments Anticoagulation Telephone Fu Lab INR res ult Reason Comments Follow Up Specialty Diagnoses / Procedures Referred By Contac t Referred To Contact INTERNAL MEDICINE Diagnoses Follow-up exam 3 month follow Procedures OFFICE/OUTPATIENT ESTABLISHED MOD [facility] 30-39 MIN 4cest Jordy Saucedo MD [address] [place] [address] [facility] [address] [place] [address] Referral ID Status Reason Start Date Expiration Date V isits Requested Visits Authorized [id number] Closed OON/Self Pay Override 11/04/2021 03/08/2022 1 1 Reason Comments Anticoagulation Telephone Fu INR Home Te st Result Reason Comments Orders Reason Comments Home Health Reason Comments Anticoagulation Reason Comments Erroneous encounter-disregard Reason Comments Insurance Authorization Reason Onset Date Comments Refill Request 05/06/2022 Reason Onset Date Comments Anticoagulation Telephone Fu 05/09/2022 Lab INR Reason Comments Refill Request Reason Onset Date Comments F/U 6 Month Immunizations 02/13/2023 Flu vaccination Specialty Diagnoses / Procedures Referred By Lexi valdes Referred To Contact INTERNAL MEDICINE Diagnoses Follow-up examination 3 month follow up BP Procedures OFFICE/OUTPATIENT ESTABLISHED MOD MDM 30-39 MIN Est Pt Jordy Saucedo MD [address] [place] [address] [facility] [address] [place] [address] Referral ID Status Reason Start Date Expiration Date V isits Requested Visits Authorized [id number] Closed OON/Self Pay Override 12/24/2021 03/08/2023 1 1 Reason Onset Date Comments Anticoagulation Telephone Fu 02/16/2023 Lab INR Result Reason Comments Results Reason Comments Patient Update Reason Comments Patient Request Reason Comments Patient Update Home INR meter enrol lment Reason Onset Date Comments Refill Request 07/27/2023 Reason Onset Date Comments Anticoagulation 08/04/2023 Reason Comments F/U 6 months Patient needs a michael er from PCP for : heart disease with details of patient's problems, high blood pressure,parkinsonism Reason Comments Letter Reason Onset Date Comments Anticoagulation 08/18/2023 Reason Onset Date Comments Anticoagulation 09/17/2023 Reason Comments Release Of Medical Records Reason Onset Date Comments Anticoagulation 10/01/2023 Reason Comments Parkinson's Eval Specialty Diagnoses / Procedures Referred By Lexi valdes Referred To Contact Neurology Diagnoses Parkinsonism, unspecified Parkinsonism type (HCC) Abnormality of gait Cerebral ventriculomegaly Procedures CONSULT TO NEUROLOGY OFFICE/OUTPATIENT NEW HIGH MDM 60 MINUTES Jordy Saucedo MD [address] [place] [address] Referral ID Status Reason Start Date Expiration Date V isits Requested Visits Authorized [id number] Closed PCP Requested Referral 07/31/2023 07/30/2024 1 1 Reason Comments red spot on ankle, recommended to [facility] Reason Comments Question Reason Onset Date Comments Anticoagulation 12/04/2023 Reason Comments INR order Reason Comments [facility] critical lab value Reason Onset Date Comments Anticoagulation 01/05/2024 Reason Onset Date Comments Anticoagulation 02/01/2024 Reason Onset Date Comments Anticoagulation 02/29/2024 Reason Onset Date Comments Refill Request 03/14/2024 Reason Onset Date Comments Anticoagulation 03/14/2024 Reason Onset Date Comments Anticoagulation 04/04/2024 Reason Comments Forms Reason Onset Date Comments Anticoagulation 04/25/2024 Reason Onset Date Comments Anticoagulation 05/23/2024 Reason Comments Lab Orders Reason Onset Date Comments Anticoagulation 06/20/2024 Reason Onset Date Comments Anticoagulation 07/04/2024 Reason Onset Date Comments Refill Request 07/22/2024 Reason Comments Medicare Wellness Exam Recheck Reason Comments Faxed to [facility] Lab Reason Onset Date Comments Anticoagulation 08/30/2024 Reason Comments Patient Question Mail lab results Reason Onset Date Comments Anticoagulation 09/27/2024 Care Teams (unrecognized sec tion and content) High Density Talc Coater Operator Relationship Specialty Start Date End Date Jordy Saucedo MD [address] [place], [place] [address] PCP - General 02/12/09 13, Pharmacist [id number] [place] [address] Pharmacist Pharmacy 10/19/19 High Density Talc Coater Operator Relationship Specialty Start Date End Date Jordy Saucedo MD [address] [place], [place] [id number] PCP - General 02/12/09 13, Pharmacist [address] [place] [address] Pharmacist Pharmacy 10/19/19 High Density Talc Coater Operator Relationship Specialty Start Date End Date Jordy Saucedo MD [address] [place], [place] [id number] PCP - General 02/12/09 13, Pharmacist [id number] [place] [address] Pharmacist Pharmacy 10/19/19 High Density Talc Coater Operator Relationship Specialty Start Date End Date Jordy Saucedo MD [address] [place] [address] PCP - General 02/12/09 13, Pharmacist [phone] [place] [address] Pharmacist Pharmacy 10/19/19 High Density Talc Coater Operator Relationship Specialty Start Date End Date Jordy Saucedo MD [address] [place] [address] PCP - General 02/12/09, Pharmacist [phone] [place] [address], [place] [address] Pharmacist Pharmacy 10/19/19 High Density Talc Coater Operator Relationship Specialty Start Date End Date Jordy Saucedo MD [address] [place] [address] PCP - General 02/12/09, Pharmacist [phone] [place] [address], [place] [address] Pharmacist Pharmacy 10/19/19 High Density Talc Coater Operator Relationship Specialty Start Date End Date Jordy Saucedo MD [address] [place] [address] PCP - General 02/12/09 13, Pharmacist [id number] [place] [address] Pharmacist Pharmacy 10/19/19 High Density Talc Coater Operator Relationship Specialty Start Date End Date Jordy Saucedo MD [address] [place] [address] PCP - General 02/12/09 13, Pharmacist [id number] [place] [address] Pharmacist Pharmacy 10/19/19 High Density Talc Coater Operator Relationship Specialty Start Date End Date Jordy Saucedo MD [address] [place] [address] PCP - General 02/12/09, Pharmacist [phone] [place] [address], [place] [address] Pharmacist Pharmacy 10/19/19 High Density Talc Coater Operator Relationship Specialty Start Date End Date Jordy Saucedo MD [address] [place] [address] PCP - General 02/12/09, Pharmacist [phone] [place] [address], [place] [address] Pharmacist Pharmacy 10/19/19 High Density Talc Coater Operator Relationship Specialty Start Date End Date Jordy Saucedo MD [address] [place] [address] PCP - General 02/12/09, Pharmacist [phone] [place] [address], [place] [address] Pharmacist Pharmacy 10/19/19 High Density Talc Coater Operator Relationship Specialty Start Date End Date Jordy Saucedo MD [address] [place] [address] PCP - General 02/12/09, Pharmacist [phone] [place] [address] Pharmacist Pharmacy 10/19/19 High Density Talc Coater Operator Relationship Specialty Start Date End Date Jordy Saucedo MD [address] [place] [address] PCP - General 02/12/09, Pharmacist [id number] [place] [address] Pharmacist Pharmacy 10/19/19 High Density Talc Coater Operator Relationship Specialty Start Date End Date Jordy Saucedo MD [address] [place] [address] PCP - General 02/12/09 13, Pharmacist [address] [place] [address] Pharmacist Pharmacy 10/19/19 High Density Talc Coater Operator Relationship Specialty Start Date End Date Jordy Saucedo MD [address] [place] [address] PCP - General 02/12/09 13, Pharmacist [address] [place] [address] Pharmacist Pharmacy 10/19/19 High Density Talc Coater Operator Relationship Specialty Start Date End Date Jordy Saucedo MD [address] [place] [address] PCP - General 02/12/09 13, Pharmacist [address] [place] [address] Pharmacist Pharmacy 10/19/19 High Density Talc Coater Operator Relationship Specialty Start Date End Date Jordy Saucedo MD [address] [place] [address] PCP - General 02/12/09, Pharmacist [phone] [place] [address] Pharmacist Pharmacy 10/19/19 High Density Talc Coater Operator Relationship Specialty Start Date End Date Jordy Saucedo MD [address] [place] [address] PCP - General 02/12/09, Pharmacist [phone] [place] [address] Pharmacist Pharmacy 10/19/19 Team Status: Active Member Role Status Dates Dr. Jordy Saucedo MD Family Provider Active Dr. Jordy Saucedo MD Primary Care Provider Active Team Status: Active Member Role Status Dates Dr. Jordy Saucedo MD Primary Care Provider Active Caesar Andrew MD Emergency Provider Active Dr. Noé Cruz , DO Admit Provider, Other Pro vider Active Dr. Rajiv Hwang , DO Other Provider Active Dr. Vadim Millan MD Attending Provider Active Dr. Ashwin Long MD Referring Provider Active Team Status: Active Member Role Status Dates Dr. Jordy Saucedo MD Primary Care Provider Active Dr. Pearl Marinelli MD Attending Provider Activ e Team Status: Active Member Role Status Dates Dr. Jordy Saucedo MD Primary Care Provider Active Caesar Andrew MD Emergency Provider Active Dr. Noé Cruz , DO Admit Provi chandan, Attending Provider, Other Provider Active Dr. Rajiv Hwang , DO Other Provider Active Team Status: Active Member Role Status Dates Dr. Jordy Saucedo MD Primary Care Provider Active Caesar Andrew MD Emergency Provider Active Dr. Noé Cruz , DO Admit Provider, Other Pro vider Active Dr. Rajiv Hwang , DO Other Provider Active Dr. Ashwin Long MD Attending Provider, Other Provider Active Team Status: Inactive Member Role Status Dates Dr. Jordy Saucedo MD Primary Care Provider Active Caesar Andrew MD Emergency Provider Active Dr. Noé Cruz , DO Admit Provider, Other Pro vider Active Dr. Rajiv Hwang , DO Other Provider Active Dr. Ashwin Long MD Attending Provider Active High Density Talc Coater Operator Relationship Specialty Start Date End Date Jordy Saucedo MD [address] [place] [address] PCP - General 02/12/09, Pharmacist [phone] [place] [address] Pharmacist Pharmacy 10/19/19 High Density Talc Coater Operator Relationship Specialty Start Date End Date Jordy Saucedo MD [address] [place] [address] PCP - General 02/12/09, Pharmacist [phone] [place] [address] Pharmacist Pharmacy 10/19/19 High Density Talc Coater Operator Relationship Specialty Start Date End Date Jordy Saucedo MD [address] [place] [address] PCP - General 02/12/09 13, Pharmacist [phone] [place] [address] Pharmacist Pharmacy 10/19/19 High Density Talc Coater Operator Relationship Specialty Start Date End Date Jordy Saucedo MD [address] [place] [address] PCP - General 02/12/09 13, Pharmacist [address] [place] [address] Pharmacist Pharmacy 10/19/19 High Density Talc Coater Operator Relationship Specialty Start Date End Date Jordy Saucedo MD [address] [place] [address] PCP - General 02/12/09 High Density Talc Coater Operator Relationship Specialty Start Date End Date Jordy Saucedo MD [address] [place] [address] PCP - General 02/12/09 High Density Talc Coater Operator Relationship Specialty Start Date End Date Jordy Saucedo MD [address] [place] [address] PCP - General 02/12/09 High Density Talc Coater Operator Relationship Specialty Start Date End Date Jordy Saucedo MD [address] [place] [address] PCP - General 02/12/09 High Density Talc Coater Operator Relationship Specialty Start Date End Date Jordy Saucedo MD [address] [place] [address] PCP - General 02/12/09 High Density Talc Coater Operator Relationship Specialty Start Date End Date Jordy Saucedo MD [address] [place] [address] PCP - General 02/12/09 High Density Talc Coater Operator Relationship Specialty Start Date End Date Jordy Saucedo MD [address] [place] [address] PCP - General 02/12/09 High Density Talc Coater Operator Relationship Specialty Start Date End Date Jordy Saucedo MD [address] [place] [address] PCP - General 02/12/09 High Density Talc Coater Operator Relationship Specialty Start Date End Date Jordy Saucedo MD [address] [place] [address] PCP - General 02/12/09 High Density Talc Coater Operator Relationship Specialty Start Date End Date Jordy Saucedo MD [address] [place] [address] PCP - General 02/12/09 Team Status: Inactive Member Role Status Dates Dr. Jordy Saucedo MD Primary Care Provider, Refer ring Provider Active Maribel Mata Active Dr. Devin Albrecht MD Attending Provider Active Team Status: Active Member Role Status Dates Dr. Jordy Saucedo MD Primary Care Provider Active Caesar Andrew MD Emergency Provider Active Dr. Noé Cruz DO Admit Provider, Attending Provider Active High Density Talc Coater Operator Relationship Specialty Start Date End Date Jordy Saucedo MD [address] [place] [address] PCP - General 02/12/09 Edith Power, TO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 [address] [place] [address] Lining Maker Internal Medicine 02/15/24 High Density Talc Coater Operator Relationship Specialty Start Date End Date Jordy Saucedo MD [address] [place], [place] [address] PCP - General 02/12/09 Edith Power, TO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 [address] [place], [place] [address] Lining Maker Internal Medicine 02/15/24 High Density Talc Coater Operator Relationship Specialty Start Date End Date Jordy Saucedo MD [address] [place], [place] [address] PCP - General 02/12/09 Edith Power, TO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 [address] [place] [address] Lining Maker Internal Medicine 02/15/24 High Density Talc Coater Operator Relationship Specialty Start Date End Date Jordy Saucedo MD [address] [place], [place] [address] PCP General 02/12/09 Edith Power, TO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 [address] [place], [place] [address] Lining Maker Internal Medicine 02/15/24 Team Status: Inactive Member Role Status Dates Dr. Jordy Saucedo MD Primary Care Provider Active Start: February 01, 2024 End: February 01, 2024 Dr. Jordy Saucedo MD Attending Provider Active Start: February 01, 2024 End: February 01, 2024 Team Status: Inactive Member Role Status Dates Dr. Jordy Saucedo MD Primary Care Provider Active Start: February 05, 2024 End: February 05, 2024 Dr. Devin Albrecht MD Attending Provider Active S tart: February 05, 2024 End: February 05, 2024 Team Status: Inactive Member Role Status Dates Dr. Jordy Saucedo MD Primary Care Provider Active Start: February 29, 2024 End: February 29, 2024 Dr. Jordy Saucedo MD Attending Provider Active Start: February 29, 2024 End: February 29, 2024 Team Status: Inactive Member Role Status Dates Dr. Jordy Saucedo MD Primary Care Provider Active Start: March 14, 2024 End: March 14, 2024 Dr. Jordy Saucedo MD Attending Provider Active Start: March 14, 2024 End: March 14, 2024 Team Status: Inactive Member Role Status Dates Dr. Jordy Saucedo MD Primary Care Provider Active Start: April 04, 2024 End: April 04, 2024 Dr. Jordy Saucedo MD Attending Provider Active Start: April 04, 2024 End: April 04, 2024 Team Status: Inactive Member Role Status Dates Dr. Jordy Saucedo MD Primary Care Provider Active Start: April 25, 2024 End: April 25, 2024 Dr. Jordy Saucedo MD Attending Provider Active Start: April 25, 2024 End: April 25, 2024 Team Status: Inactive Member Role Status Dates Dr. Jordy Saucedo MD Primary Care Provider Active Start: May 06, 2024 End: May 06, 2024 Dr. Devin Albrecht MD Attending Provider Active S tart: May 06, 2024 End: May 06, 2024 Team Status: Inactive Member Role Status Dates Dr. Jordy Saucedo MD Primary Care Provider Active Start: May 23, 2024 End: May 23, 2024 Dr. Jordy Saucedo MD Attending Provider Active Start: May 23, 2024 End: May 23, 2024 Team Status: Inactive Member Role Status Dates Dr. Jordy Saucedo MD Primary Care Provider Active Start: June 20, 2024 End: June 20, 2024 Dr. Jordy Saucedo MD Attending Provider Active Start: June 20, 2024 End: June 20, 2024 High Density Talc Coater Operator Relationship Specialty Start Date End Date Jordy Saucedo MD [address] [place] [address] PCP - General 02/12/09 Edith Power, TO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 [address] [facility], [place] [address] Lining Maker Internal Medicine 02/15/24 Team Status: Active Member Role Status Dates Dr. Jordy Saucedo MD Primary Care Provider Active Start: May 06, 2024 End: May 06, 2024 Dr. Devin Albrecht MD Attending Provider Active S tart: May 06, 2024 End: May 06, 2024 Dr. Devin Albrecht MD Referring Provider Active S tart: May 06, 2024 End: May 06, 2024 Team Status: Inactive Member Role Status Dates Dr. Jordy Saucedo MD Primary Care Provider Active Start: July 04, 2024 End: July 04, 2024 Dr. Jordy Saucedo MD Attending Provider Active Start: July 04, 2024 End: July 04, 2024 Team Status: Inactive Member Role Status Dates Dr. Jordy Saucedo MD Primary Care Provider Active Start: August 02, 2024 End: August 02, 2024 Dr. Jordy Saucedo MD Attending Provider Active Start: August 02, 2024 End: August 02, 2024 High Density Talc Coater Operator Relationship Specialty Start Date End Date Jordy Saucedo MD [address] [place], [place] [id number] PCP - General 02/12/09 Edith Power, TO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 [address] [facility], [place] [id number] [facility] Internal Medicine 02/15/24 High Density Talc Coater Operator Relationship Specialty Start Date End Date Jordy Saucedo MD [address] [place], [place] [id number] PCP - General 02/12/09 Edith Power, TO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 [address] [place] [address] [facility] Internal [facility] 02/15/24 Team Status: Inactive Member Role Status Dates Dr. Jordy Saucedo MD Primary Care Provider Active Start: August 05, 2024 End: August 05, 2024 Dr. Devin Albrecht MD Attending Provider Active S tart: August 05, 2024 End: August 05, 2024 High Density Talc Coater Operator Relationship Specialty Start Date End Date Jordy Saucedo MD [address] [facility], [place] [id number] PCP - General 02/12/09 Edith Power, TO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 [address] [facility], [place] [id number] [facility] 02/15/24 Team Status: Active Member Role/Relationship Status Dates Dr. Jordy Saucedo MD Family Provider Active Dr. Jordy Saucedo MD Primary Care Provider Active Team Status: Inactive Member Role/Relationship Status Dates Dr. Jordy Saucedo MD Primary Care Provider Active Start: May 23, 2024 End: May 23, 2024 Dr. Jordy Saucedo MD Attending Provider Active Start: May 23, 2024 End: May 23, 2024 Team Status: Inactive Member Role/Relationship Status Dates Dr. Jordy Saucedo MD Primary Care Provider Active Start: June 20, 2024 End: June 20, 2024 Dr. Jordy Saucedo MD Attending Provider Active Start: June 20, 2024 End: June 20, 2024 Team Status: Inactive Member Role/Relationship Status Dates Dr. Jordy Saucedo MD Primary Care Provider Active Start: July 04, 2024 End: July 04, 2024 Dr. Jordy Saucedo MD Attending Provider Active Start: July 04, 2024 End: July 04, 2024 Team Status: Inactive Member Role/Relationship Status Dates Dr. Jordy Saucedo MD Primary Care Provider Active Start: August 02, 2024 End: August 02, 2024 Dr. Jrody Saucedo MD Attending Provider Active Start: August 02, 2024 End: August 02, 2024 Team Status: Inactive Member Role/Relationship Status Dates Dr. Jordy Saucedo MD Primary Care Provider Active Start: August 05, 2024 End: August 05, 2024 Dr. Devin Albrecht MD Attending Provider Active S tart: August 05, 2024 End: August 05, 2024 Team Status: Inactive Member Role/Relationship Status Dates Dr. Jordy Saucedo MD Primary Care Provider Active Start: August 30, 2024 End: August 30, 2024 Dr. Jordy Saucedo MD Attending Provider Active Start: August 30, 2024 End: August 30, 2024 High Density Talc Coater Operator Relationship Specialty Start Date End Date Jordy Saucedo MD [address] [place], [place] [id number] PCP - General 02/12/09 Edith Power, TO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 [address] [place], [place] [id number] [facility] 02/15/24 Team Status: Inactive Member Role/Relationship Status Dates Dr. Jordy Saucedo MD Primary Care Provider Active Start: June 20, 2024 End: June 20, 2024 Dr. Jordy Saucedo MD Attending Provider Active Start: June 20, 2024 End: June 20, 2024 Team Status: Inactive Member Role/Relationship Status Dates Dr. Jordy Saucedo MD Primary Care Provider Active Start: July 04, 2024 End: July 04, 2024 Dr. Jordy Saucedo MD Attending Provider Active Start: July 04, 2024 End: July 04, 2024 Team Status: Inactive Member Role/Relationship Status Dates Dr. Jordy Saucedo MD Primary Care Provider Active Start: August 02, 2024 End: August 02, 2024 Dr. Jordy Saucedo MD Attending Provider Active Start: August 02, 2024 End: August 02, 2024 Team Status: Inactive Member Role/Relationship Status Dates Dr. Jordy Saucedo MD Primary Care Provider Active Start: August 05, 2024 End: August 05, 2024 Dr. Devin Albrecht MD Attending Provider Active S tart: August 05, 2024 End: August 05, 2024 Team Status: Inactive Member Role/Relationship Status Dates Dr. Jordy Saucedo MD Primary Care Provider Active Start: August 30, 2024 End: August 30, 2024 Dr. Jordy Saucedo MD Attending Provider Active Start: August 30, 2024 End: August 30, 2024 Team Status: Inactive Member Role/Relationship Status Dates Dr. Jordy Saucedo MD Primary Care Provider Active Start: September 27, 2024 End: September 27, 2024 Dr. Jordy Saucedo MD Attending Provider Active Start: September 27, 2024 End: September 27, 2024 Goals (unrecognized section and content) Goals may be documented in a n alternate sectionGoals may be documented in an alternate sectionGoals may be documented in an alternate sectionGoals may be documented in an alternate sectionGoals may be documented in an alternate sectionGoals may be documented in an alternate sectionGoals may be documented in an alternate sectionGoals may be documented in an alternate section FOR RECORDS PERTAINING TO PATIENTS WHO ARE OR HAVE BEEN ENROLLED IN A CHEMICAL DEPENDENCY/SUBSTANCEABUSE PROGRAM, SOME INFORMATION MAY BE OMITTED. This clinical summary was aggregated from multiple sources. Caution should be exercised in using it in the provision of clinical care. This summary normalizes information from multiple sources, and as a consequence, information in this document may materially change the coding, format and clinical context of patient data. In addition, data may be omitted in some cases. CLINICAL DECISIONS SHOULD BE BASED ON THE PRIMARY CLINICAL RECORDS. [facility]. provides no warranty or guarantee of the accuracy or completeness of information in this document.
[2024-10-24 01:42] LABS: Prothrombin Time (Protime)PT. 40.3 SECONDS (11.7-14.9)
[2024-10-24 01:43] LABS: Partial Thromboplast Time 47.2 Seconds (24.1-36.2)
[2024-10-24 01:57] LABS: Troponin T High Sensitivity 12 ng/L (<=22)
[2024-10-24] MEDS: Phytonadione (Vit K) 10 MG in 0.9% Normal Saline (50mL Bag) 50 ML 153 MG IV (02:10)
[2024-10-24 02:19] LABS: Anion Gap 12 (5-15); BUN 15 mg/dL (4-19); BUN/Creat Ratio 16.4 RATIO (10-20); Calcium,Total 9.3 mg/dL (7.6-11.0); Carbon Dioxide 22.2 mmol/L (21.0-32.0); Chloride 104 mmol/L (98-108); Estimated Creatinine Clearance 71.85 ml/min (50-250); Glucose 136 mg/dL (70-99); Potassium 3.9 mmol/L (3.3-5.1)
[2024-10-24] MEDS: HUM PROTHROMBIN CPLX(PCC)-LANS 3,240 UNIT in Viaflex Bag 1 BAG 500 UNIT IV (02:32)
--- NOTE | 2024-10-24 02:35 | ED.RN ---
Pt unable to complete full NIH d/t speech and not always being able to follow commands.
== END 2024-10-24 02:36 | disposition short-term general hospital (02) ==
PROVIDERS: Emergency Provider Emergency Medicine; PCP Internal Medicine; Visit Provider Emergency Medicine
DX: I62.9 Nontraumatic intracranial hemorrhage, unspecified (principal); I63.9 Cerebral infarction, unspecified; I42.9 Cardiomyopathy, unspecified; E78.00 Pure hypercholesterolemia, unspecified; I10 Essential (primary) hypertension; I25.10 Atherosclerotic heart disease of native coronary artery without angina pectoris; Z87.891 Personal history of nicotine dependence; Z95.1 Presence of aortocoronary bypass graft; R51.9 Headache, unspecified; Z79.01 Long term (current) use of anticoagulants; Z95.0 Presence of cardiac pacemaker; I25.2 Old myocardial infarction; Z79.82 Long term (current) use of aspirin; Z79.899 Other long term (current) drug therapy; Z90.49 Acquired absence of other specified parts of digestive tract
CPT/HCPCS: 70450; 80048; 84484; 85025; 85610; 85730; 93005; 96365; 96375; 99285; A4216; J7165